=== PATIENT | male | born 1935 | race Caucasian/White ===

== ENCOUNTER → 2019-03-17 | Day surgery (SDC) | payer MEDICARE ==
[2019-03-11 16:58] LABS: BASOPHILS % 0.6 % (0.0-1.0); EOSINOPHILS # (AUTO) 0.1 (0.0-0.4); EOSINOPHILS % 1.8 % (0.0-6.0); HEMATOCRIT 44.8 % (38.2-49.6); HEMOGLOBIN 14.2 g/dL (14.0-18.0); LYMPHOCYTES # (AUTO) 2.4 (1.0-3.2); LYMPHOCYTES % 33.6 % (18.0-39.1); MEAN CORPUSCULAR HGB CONC 31.7 g/dL (31-35); MEAN CORPUSCULAR VOLUME 94.5 fL (81-99); MONOCYTES # (AUTO) 0.7 (0.2-0.8); MONOCYTES % 9.7 % (4.4-11.3); NEUTROPHILS # (AUTO) 3.9 (2.1-6.9); NEUTROPHILS % 53.7 % (38.7-80.0); PLATELET COUNT 189 x10e3/uL (140-360); RED BLOOD COUNT 4.74 x10e6/uL (4.3-5.7); RED CELL DISTRIBUTION WIDTH 14.2 % (11.7-14.4)
[2019-03-11 17:17] LABS: ANION GAP 11.3 mmol/L (8-16); CALCIUM 9.8 mg/dL (8.4-10.2); CREATININE, SERUM 1.19 mg/dL (0.72-1.25); POTASSIUM 4.3 mmol/L (3.5-5.1)
--- NOTE | 2019-03-11 17:22 | Diagnostic Imaging Report ---
Frontal and lateral views of the chest. HISTORY: PREOP, pilonidal cyst COMPARISON: None available. DISCUSSION: Lungs: Mild bibasilar atelectasis versus scarring. Superimposed right lung base peripheral contusion is possible in the setting of recent trauma. Pleura: No pleural effusion or evidence of a pneumothorax. Heart and mediastinum: The cardiomediastinal silhouette appears unremarkable. Bones and soft tissues: Diffusely decreased mineralization of the osseous structures limits bone detail. Age uncertain unhealed fracture deformities of the right sixth, seventh, eighth, and ninth ribs. The fractures are most likely subacute. Mild accentuation of the thoracic kyphosis. Mild multilevel degenerative disc changes. IMPRESSION: Unhealed right rib fracture deformities with adjacent atelectasis, pulmonary contusion, and/or scarring. Correlate with specific history and for focal acute point tenderness. Signed by: Dr. Shyam Richardson D.O., M.M.M. on 03/11/2019 5:19 PM
[~2019-03-17] MED LIST: ATENOLOL50 MG PO; BUPIVACAINE 0.5%/EPI 30 ML SDV INJ ONE; CEFAZOLIN SOD 2 GM/D5W 50ML 50 ML IV ONE; DESFLURANE 240 ML BTL INH ONE; DEXAMETHASONE SOD PHOS INJ 4 MG/ML VIAL ONE; EPHEDRINE SULFATE INJ 50 MG/10 ML SYR ONE; FENTANYL CITRATE/PF 100MCG/2 ML INJ ONE; GABAPENTIN300 MG PO; GLYCOPYRROLATE INJ 1MG/ 5 ML SYR ONE; HYDROGEN PEROXIDE 120 ML BTL ONE; LIDOCAINE HCL 2% LOCAL INJ 5 ML SDV VIAL INJ ONE; MECLIZINE HCL12.5 MG PO; METHYLENE BLUE 1% INJ 10 ML VIAL INJ ONE; MIDAZOLAM HCL 2 MG/2 ML VIAL ONE; NEOSTIGMINE 5 MG/5ML SYR ONE; ONDANSETRON HCL INJ 2MG/ML 2ML 2 MG/ML VIAL ONE; ONDANSETRON ODT8 MG PO; PRAMIPEXOLE D0.25 MG PO; PROPOFOL IV EMULSION 10 MG/ML 20 ML VIAL ONE; ROCURONIUM BROMIDE 10 MG/ML 5ML VIAL ONE; SUCRALFATE1 G/10 ML PO; TRIAMTERENE/HCTZ PO
--- OUTSIDE RECORDS SUMMARY | 2019-03-17 07:17 | XMS REPORT ---
Author Author Gregory Ingram Organization [employer] Address Unknown Phone Unavailable Care Team Providers Care Bottling Room Worker Name Role Phone Gregory Ingram CP Unavailable Allergies No Known Allergies Problems Problem Type Condition Code Onset Dates Condition Status Problem Knee pain, right M25.561 Active Problem 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 Active Problem Nausea R11.0 Active Problem Abdominal pain R10.9 Active Problem Shoulder pain, right M25.511 Active Problem Vitamin D deficiency E55.9 Active Problem Long-term use of high-risk medication Z79.899 Active Problem Neck mass R22.1 Active Problem Dizziness R42 Active Medications No Known Medications Results No Known Results Summary Purpose eClinicalWorks Submission
--- OUTSIDE RECORDS SUMMARY | 2019-03-17 07:17 | XMS REPORT ---
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 Assessment Venous insufficiency I87.2 Active Problem Essential hypertension I10 Active Problem Obesity (BMI 30.0-34.9) E66.9 Active Problem Osteoarthritis, unspecified osteoarthritis type, unspecified site M19.90 Active Problem Family history of abdominal aortic aneurysm (AAA) Z82.49 Active Problem Former smoker Z87.891 Active Problem Dyspnea, unspecified type R06.00 Active Problem Preoperative cardiovascular examination Z01.810 Active Medications Medication Code System Code Instructions Start Date End Date Status Dosage Atenolol [facility] [address]-29 50 MG Orally Once a day Active 1 tablet Gabapentin [facility] [address]-44 600 MG Orally Three times a day Active 1 tablet Pramipexole Dihydrochloride [facility] [address]-21 0.25 MG Orally Once a day Active 1 tablet before bedtime Triamterene-HCTZ [facility] [address]-18 75-50 MG Orally Once a day Active 1 tablet in the morning Omeprazole [facility] [address]-11 40 MG Orally Once a day Active 1 capsule Azelastine HCl [facility] [address]-74 0.1 % Nasally Twice a day Active 1 puff in each nostril Asmanex 14 Metered Doses [facility] [address]-65 220 MCG/INH Inhalation Once a day Active 1 puff in the evening Hydrocodone-Acetaminophen [facility] [address]-58 5-325 MG Orally every 6 hrs Active 1 tablet as needed Stiolto Respimat [facility] [address]-35 2.5-2.5 MCG/ACT Inhalation Once a day Active 2 puffs Results No Known Results Summary Purpose eClinicalWorks Submission
--- OUTSIDE RECORDS SUMMARY | 2019-03-17 07:17 | XMS REPORT ---
Author Gregory Lundberg [facility] eClinicalWorks Address Unknown Phone Unavailable Care Team Providers Care Payment Specialist Name Role Phone Gregory Ingram CP Unavailable Allergies No Known Allergies Problems Problem Type Condition Code Onset Dates Condition Status Problem Knee pain, right M25.561 Active Problem 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 Active Problem Long-term use of high-risk medication Z79.899 Active Medications No Known Medications Results No Known Results Summary Purpose eClinicalWorks Submission
--- OUTSIDE RECORDS SUMMARY | 2019-03-17 07:17 | XMS REPORT ---
Author Author Philippe Gibson [facility] eClinical[employer] Address Unknown Phone Unavailable Care Team Providers Care Special Procedures Tech Name Role Phone Philippe Gibson CP Unavailable Allergies, Adverse Reactions, Alerts Substance Reaction Event Type N.K.D.A. 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 Problem Essential hypertension I10 Active Problem Obesity (BMI 30.0-34.9) E66.9 Active Problem Osteoarthritis, unspecified osteoarthritis type, unspecified site M19.90 Active Problem Family history of abdominal aortic aneurysm (AAA) Z82.49 Active Problem Former smoker Z87.891 Active Problem Dyspnea, unspecified type R06.00 Active Problem Preoperative cardiovascular examination Z01.810 Active Assessment Former smoker Z87.891 Active Assessment Osteoarthritis, unspecified osteoarthritis type, unspecified site M19.90 Active Assessment Essential hypertension I10 Active Assessment Family history of abdominal aortic aneurysm (AAA) Z82.49 Active Assessment Dyspnea, unspecified type R06.00 Active Assessment Obesity (BMI 30.0-34.9) E66.9 Active Assessment Bilateral lower extremity edema R60.0 Active Medications Medication Code System Code Instructions Start Date End Date Status Dosage Gabapentin [facility] [address]-12 600 MG Orally Three times a day Active 1 tablet Azelastine HCl [facility] [address]-22 0.1 % Nasally Twice a day Active 1 puff in each nostril Omeprazole [facility] [address]-09 40 MG Orally Once a day Active 1 capsule Hydrocodone-Acetaminophen [facility] [address]-93 5-325 MG Orally every 6 hrs Active 1 tablet as needed Pramipexole Dihydrochloride [facility] [address]-94 0.25 MG Orally Once a day Active 1 tablet before bedtime Stiolto Respimat [facility] [address]-88 2.5-2.5 MCG/ACT Inhalation Once a day Active 2 puffs Asmanex 14 Metered Doses [facility] [address]-78 220 MCG/INH Inhalation Once a day Active 1 puff in the evening Triamterene-HCTZ [facility] [address]-16 75-50 MG Orally Once a day Active 1 tablet in the morning Atenolol [facility] [address]-28 50 MG Orally Once a day Active 1 tablet Vital Signs Date/Time: January 16, 2017 BMI 31.73 Index Weight 234 lbs Height 72 in Temperature 98.0 F Cardiac Monitoring Heart Rate 85 /min Blood Pressure Diastolic 80 mm Hg Blood Pressure Systolic 128 mm Hg Results No Known Results Summary Purpose eClinicalWorks Submission
--- OUTSIDE RECORDS SUMMARY | 2019-03-17 07:17 | XMS REPORT ---
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
--- OUTSIDE RECORDS SUMMARY | 2019-03-17 07:17 | XMS REPORT ---
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 Active Problem Long-term use of high-risk medication Z79.899 Active Assessment Knee pain, right M25.561 Active Assessment 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 Active Assessment Long-term use of high-risk medication Z79.899 Active Medications Medication Code System Code Instructions Start Date End Date Status Dosage Simponi Aria [facility] 83610587303 50 MG/4ML Intravenous Sep 02, 2017 Active as directed Gabapentin ND 48340370747 300 MG Orally three times a day Active 1 tablet PredniSONE NDC 0 5 MG Orally Once a day Aug 20, 2017 Active 1-2 tabs PRN Tylenol/Codeine #3 ND 12082115846 300-30 MG Orally qd prn December 28, 2016 Active 1 tablet as needed Nexium ND 60466519750 40 MG prn Active TAKE ONE CAPSULE BY MOUTH EVERY DAY Atenolol ND 06463057877 50MG Orally Once a day Active 1 tablet Vital Signs Date/Time: Oct 21, 2017 BMI 31.96 Index Weight 235.7 lbs Height 72 in Temperature 99.0 F Cardiac Monitoring Heart Rate 74 /min Blood Pressure Diastolic 58 mm Hg Blood Pressure Systolic 110 mm Hg Results No Known Results Summary Purpose eClinicalWorks Submission
--- OUTSIDE RECORDS SUMMARY | 2019-03-17 07:17 | XMS REPORT | Continuity of Care Document ---
Author Author [facility] Address Unknown Phone Unavailable Problems Problem Status Onset Date Classification Date Reported Comments Source Varicose veins of bilateral lower extremities with other complications Active Problem 01/25/2018 Mohamed O Beouamanda Bilateral lower extremity edema Active Problem 01/25/2018 Mohamed O Paige Venous insufficiency Active Diagnosis 03/07/2017 Mohamed O Beouamanda Essential hypertension Active Problem 01/25/2018 Mohamed O Paige Obesity Active Problem 01/25/2018 Mohamed O Beouamanda Osteoarthritis, unspecified osteoarthritis type, unspecified site Active Problem 01/25/2018 Mohamed O Paige Family history of abdominal aortic aneurysm Active Problem 01/25/2018 Mohamed O Paige Former smoker Active Problem 01/25/2018 Mohamed O Paige Dyspnea, unspecified type Active Problem 01/25/2018 Mohamed O Paige Preoperative cardiovascular examination Active Problem 01/25/2018 Mohamed Radha Gibson Knee pain, right Active Problem 03/06/2019 Keegan Ingram Ankylosing spondylitis of multiple sites in spine Active Problem 03/06/2019 Keegan Ingram Long-term use of high-risk medication Active Problem 03/06/2019 Keegan Ingram Vitamin D deficiency Active Problem 03/06/2019 Keegan Ingram Status post ablation of incompetent vein using laser Active Problem 01/25/2018 Mohdixon Gibson Nausea Active Problem 03/06/2019 Keegan Ingram Abdominal pain Active Problem 03/06/2019 Keegan Ingram Shoulder pain, right Active Problem 03/06/2019 Keegan Ingram Neck mass Active Problem 03/06/2019 Keegan Ingram Dizziness Active Problem 03/06/2019 Keegan Ingram Fatigue Active Diagnosis 12/19/2017 Keegan Ingram Medications Medication Details Route Status Patient Instructions Ordering Provider Order Date Source Medrol Dose Davis as directed Orally Active 4mg Orally once a day Clau 12/01/2018 Keegan Ingram Chlordiazepoxide HCl 1 capsule Orally Active 10 MG Orally Twice a day Clau 09/09/2018 Keegan Ingram Chlordiazepoxide HCl 1 capsule Orally Active 25 MG Orally tid for nausea Clau 08/12/2018 Keegan Ingram Zofran 1 tablet Orally Active 8 MG Orally Twice a day [facility] 08/05/2018 Keegan Ingram PredniSONE 1-2 tabs prn for arthritis flare up Orally Active 5 MG Orally Once a day [facility] 08/05/2018 Keegan Ingram Tylenol/Codeine #3 1 tablet as needed Orally Active 300-30 MG Orally qid [facility] 06/10/2018 Keegan Ingram Meclizine HCl 1 tablet as needed Orally Active 25 MG Orally Once a day [facility] 06/10/2018 Keegan Ingram Vitamin D (Ergocalciferol) 1 capsule Orally Active 48064 UNIT Orally once a week [place] 12/17/2017 Keegan Ingram Simponi Aria as directed Intravenous Active 50 MG/4ML Intravenous [facility] 09/02/2017 Keegan Ingram PredniSONE 1-2 tabs PRN Orally Active 5 MG Orally Once a day [place] 08/20/2017 Keegan Ingram PredniSONE 1-2 tabs PRN Orally Active 5 MG Orally Once a day [facility] 08/20/2017 Keegan Ingram Tylenol/Codeine #3 1 tablet as needed Orally Active 300-30 MG Orally qd prn [facility] 12/28/2016 Keegan Ingram Atenolol 1 tablet Orally Active 50 MG Orally Once a day Paige Gibson Gabapentin 1 tablet Orally Active 600 MG Orally Three times a day Paige Gibson Pramipexole Dihydrochloride 1 tablet before bedtime Orally Active 0.25 MG Orally Once a day Paige Gibson Triamterene-HCTZ 1 tablet in the morning Orally Active 75-50 MG Orally Once a day Paige Gibson Omeprazole 1 capsule Orally Active 40 MG Orally Once a day Paige Gibson Azelastine HCl 1 puff in each nostril Nasally Active 0.1 % Nasally Twice a day Paige Gibson Asmanex 14 Metered Doses 1 puff in the evening Inhalation Active 220 MCG/INH Inhalation Once a day Paige Gibson Hydrocodone-Acetaminophen 1 tablet as needed Orally Active 5- 325 MG Orally every 6 hrs Paige Gibson Stiolto Respimat 2 puffs Inhalation Active 2.5-2.5 MCG/ACT Inhalation Once a day Beamanda Gibson Atenolol 1 tablet Orally Active 50 MG Orally Once a day Beamanda Gibson Azelastine HCl 1 puff in each nostril Nasally Active 0.1 % Nasally Twice a day Beamanda Gibson Hydrocodone-Acetaminophen 1 tablet as needed Orally Active 5- 325 MG Orally every 6 hrs Beamanda Gibson Omeprazole 1 capsule Orally Active 40 MG Orally Once a day Beamanda Gibson Triamterene-HCTZ 1 tablet in the morning Orally Active 75-50 MG Orally Once a day Beamanda Gibson Gabapentin 1 tablet Orally Active 600 MG Orally Three times a day Beamanda Gibson Asmanex 14 Metered Doses 1 puff in the evening Inhalation Active 220 MCG/INH Inhalation Once a day Beamanda Gibson Pramipexole Dihydrochloride 1 tablet before bedtime Orally Active 0.25 MG Orally Once a day Paige Gibson Stiolto Respimat 2 puffs Inhalation Active 2.5-2.5 MCG/ACT Inhalation Once a day Paige Gibson Gabapentin 1 tablet Orally Active 300 MG Orally three times a day Clau Keegan Ingram Nexium TAKE ONE CAPSULE BY MOUTH EVERY DAY NA Active 40 MG prn Clau Keegan Ingram Atenolol 1 tablet Orally Active 50MG Orally Once a day Clau Keegan Ingram Gabapentin 1 tablet Orally Active 300 MG Orally Once a day Clau Keegan Ingram Allergies, Adverse Reactions, Alerts Substance Category Reaction Severity Reaction type Status Date Reported Comments Source N.K.D.A. Adverse Reaction Info Not Available Adverse Reaction Active 02/28/2017 Philippe Gibson Remicade Adverse Reaction Info Not Available Adverse Reaction Active 01/05/2019 Keegan Ingram Latex Adverse Reaction Info Not Available Adverse Reaction Active 01/05/2019 Keegan Ingram Celebrex Adverse Reaction GI upset Adverse Reaction Active 01/05/2019 Keegan Ingram Arthrotec Adverse Reaction Info Not Available Adverse Reaction Active 01/05/2019 Keegan Ingram Mirapex Adverse Reaction nausea/emesis Adverse Reaction Active 01/05/2019 Keegan Ingram Immunizations Immunization Date Given Site Status Last Updated Comments Source Results Order Name Results Value Reference Range Date Interpretation Comments Source Vital Signs Vital Sign Value Date Comments Source Weight 220.0 01/05/2019 Keegan Ingram Height 70 01/05/2019 Keegan Ingram Temperature Oral (F) 96.8 F 01/05/2019 Keegan Ingram Heart Rate 68 01/05/2019 Keegan Ingram Diastolic (mm Hg) 80 01/05/2019 Keegan Ingram Systolic (mm Hg) 140 01/05/2019 Keegan Ingram Weight 225.4 11/07/2018 Keegan Ingram Height 69 11/07/2018 Keegan Ingram Temperature Oral (F) 96.6 F 11/07/2018 Keegan Ingram Heart Rate 64 11/07/2018 Keegan Ingram Diastolic (mm Hg) 72 11/07/2018 Keegan Ingram Systolic (mm Hg) 148 11/07/2018 Keegan Ingram Weight 221.6 11/04/2018 Keegan Ingram Height 69 11/04/2018 Keegan Ingram Temperature Oral (F) 98.0 F 11/04/2018 Keegan Ingram Heart Rate 76 11/04/2018 Keegan Ingram Diastolic (mm Hg) 66 11/04/2018 Keegan Ingram Systolic (mm Hg) 104 11/04/2018 Keegan Ingram Weight 226 09/09/2018 Keegan Ingram Height 69 09/09/2018 Keegan Ingram Temperature Oral (F) 98.8 F 09/09/2018 Keegan Ingram Heart Rate 74 09/09/2018 Keegan Ingram Diastolic (mm Hg) 70 09/09/2018 Keegan Ingram Systolic (mm Hg) 118 09/09/2018 Keegan Ingram Weight 221.1 08/12/2018 Keegan Ingram Height 72 08/12/2018 Keegan Ingram Temperature Oral (F) 97.2 F 08/12/2018 Keegan Ingram Heart Rate 76 08/12/2018 Keegan Ingram Diastolic (mm Hg) 80 08/12/2018 Keegan Ingram Systolic (mm Hg) 112 08/12/2018 Keegan Ingram Weight 222.2 08/05/2018 Keegan Ingram Height 72 08/05/2018 Keegan Ingram Temperature Oral (F) 98.5 F 08/05/2018 Keegan Ingram Heart Rate 76 08/05/2018 Keegan Ingram Diastolic (mm Hg) 78 08/05/2018 Keegan Ingram Systolic (mm Hg) 122 08/05/2018 Keegan Ingram Weight 227.9 06/10/2018 Keegan Ingram Height 72 06/10/2018 Keegan Ingram Temperature Oral (F) 97.0 F 06/10/2018 Keegan Ingram Heart Rate 74 06/10/2018 Keegan Ingram Diastolic (mm Hg) 70 06/10/2018 Keegan Ingram Systolic (mm Hg) 128 06/10/2018 Keegan Ingram Weight 231.6 02/13/2018 Keegan Ingram Height 72 02/13/2018 Keegan Ingram Temperature Oral (F) 97.3 F 02/13/2018 Keegan Ingram Heart Rate 76 02/13/2018 Keegan Ingram Diastolic (mm Hg) 60 02/13/2018 Keegan Ingram Systolic (mm Hg) 102 02/13/2018 Keegan Ingram Weight 235.8 12/16/2017 Keegan Ingram Height 72 12/16/2017 Keegan Ingram Temperature Oral (F) 98.2 F 12/16/2017 Keegan Ingram Heart Rate 76 12/16/2017 Keegan Ingram Diastolic (mm Hg) 70 12/16/2017 Keegan Ingram Systolic (mm Hg) 122 12/16/2017 Keegan Ingram Weight 235.7 10/21/2017 Keegan Ingram Height 72 10/21/2017 Keegan Ingram Temperature Oral (F) 99.0 F 10/21/2017 Keegan Ingram Heart Rate 74 10/21/2017 Keegan Ingram Diastolic (mm Hg) 58 10/21/2017 Keegan Ingram Systolic (mm Hg) 110 10/21/2017 Keegan Ingram Weight 235 02/28/2017 Mohamed O Jeroudi Height 72 02/28/2017 Mohamed O Jeroudi Temperature Oral (F) 97.3 F 02/28/2017 Mohamed O Jeroudi Heart Rate 80 02/28/2017 Mohamed O Jeroudi Diastolic (mm Hg) 70 02/28/2017 Mohamed O Jeroudi Systolic (mm Hg) 130 02/28/2017 Mohamed O Jeroudi Weight 235 01/31/2017 Mohamed O Jeroudi Height 72 01/31/2017 Philippe Gibson Temperature Oral (F) 97.6 F 01/31/2017 Philippe Gibson Heart Rate 80 01/31/2017 Philippe Gibson Diastolic (mm Hg) 76 01/31/2017 Philippe Gibson Systolic (mm Hg) 132 01/31/2017 Philippe Gibson Weight 234 01/16/2017 Philippe Gibson Height 72 01/16/2017 Philippe Gibson Temperature Oral (F) 98.0 F 01/16/2017 Philippe Gibson Heart Rate 85 01/16/2017 Philippe Gibson Diastolic (mm Hg) 80 01/16/2017 Philippe Gibson Systolic (mm Hg) 128 01/16/2017 Philippe Gibson Encounters Location Location Details Encounter Type Encounter Number Reason For Visit Attending Provider ADM Date DC Date Status Source Procedures Procedure Code Date Perfomer Comments Source
--- OUTSIDE RECORDS SUMMARY | 2019-03-17 07:18 | XMS REPORT ---
Author Author Mindi Gibson [facility] eClinicalWorks Address Unknown Phone Unavailable Care Team Providers Care Athletic Director Name Role Phone Mindi Gibson Unavailable Allergies, Adverse Reactions, Alerts Substance Reaction Event Type N.K.D.A. 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 Problem Obesity (BMI 30.0-34.9) E66.9 Active Problem Bilateral lower extremity edema R60.0 Active Assessment Former smoker Z87.891 Active Assessment Family history of abdominal aortic aneurysm (AAA) Z82.49 Active Assessment Essential hypertension I10 Active Assessment Dyspnea, unspecified type R06.00 Active Assessment Obesity (BMI 30.0-34.9) E66.9 Active Assessment Bilateral lower extremity edema R60.0 Active Assessment Osteoarthritis, unspecified osteoarthritis type, unspecified site M19.90 Active Assessment 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 Medications Medication Code System Code Instructions Start Date End Date Status Dosage Atenolol ND 38498425433 50 MG Orally Once a day Active 1 tablet Azelastine HCl ND 13862414572 0.1 % Nasally Twice a day Active 1 puff in each nostril Hydrocodone-Acetaminophen ND 26074218086 5-325 MG Orally every 6 hrs Active 1 tablet as needed Omeprazole ND 68314431721 40 MG Orally Once a day Active 1 capsule Triamterene-HCTZ ND 54149145581 75-50 MG Orally Once a day Active 1 tablet in the morning Gabapentin [facility] 36988357734 600 MG Orally Three times a day Active 1 tablet Asmanex 14 Metered Doses [facility] 05644556539 220 MCG/INH Inhalation Once a day Active 1 puff in the evening Pramipexole Dihydrochloride [facility] 51864813025 0.25 MG Orally Once a day Active 1 tablet before bedtime Stiolto Respimat [facility] 08354274008 2.5-2.5 MCG/ACT Inhalation Once a day Active 2 puffs Vital Signs Date/Time: January 31, 2017 BMI 31.87 Index Weight 235 lbs Height 72 in Temperature 97.6 F Cardiac Monitoring Heart Rate 80 /min Blood Pressure Diastolic 76 mm Hg Blood Pressure Systolic 132 mm Hg Results No Known Results Summary Purpose eClinicalWorks Submission
--- OUTSIDE RECORDS SUMMARY | 2019-03-17 07:18 | XMS REPORT ---
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
--- OUTSIDE RECORDS SUMMARY | 2019-03-17 07:18 | XMS REPORT ---
Author Author Gregory Ingram Organization eClinicalWorks Address Unknown Phone Unavailable Care Team Providers Care Packaging Machine Operator Name Role Phone Gregory Ingram CP Unavailable Allergies, Adverse Reactions, Alerts Substance Reaction Event Type Remicade Info Not Available Drug Allergy Latex Info Not Available Non Drug Allergy Celebrex GI upset Non Drug Allergy Arthrotec Info Not Available Non Drug Allergy Mirapex nausea/emesis Non Drug Allergy Problems Problem Type Condition Code Onset Dates Condition Status Problem Long-term use of high-risk medication Z79.899 Active Problem Knee pain, right M25.561 Active Problem Vitamin D deficiency E55.9 Active Assessment Long-term use of high-risk medication Z79.899 Active Problem 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 Active Assessment 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 Active Medications Medication Code System Code Instructions Start Date End Date Status Dosage Simponi Aria [facility] 43902100309 50 MG/4ML Intravenous Sep 02, 2017 Active as directed Atenolol ND 79649115397 50MG Orally Once a day Active 1 tablet Tylenol/Codeine #3 [facility] 72309285275 300-30 MG Orally qd prn December 28, 2016 Active 1 tablet as needed Vitamin D (Ergocalciferol) [facility] 12938582144 79096 UNIT Orally once a week December 17, 2017 Active 1 capsule Gabapentin ND 40353178882 300 MG Orally three times a day Active 1 tablet Nexium ND 50111502762 40 MG prn Active TAKE ONE CAPSULE BY MOUTH EVERY DAY PredniSONE NDC 0 5 MG Orally Once a day Aug 20, 2017 Active 1-2 tabs PRN Vital Signs Date/Time: February 13, 2018 BMI 31.41 Index Weight 231.6 lbs Height 72 in Temperature 97.3 F Cardiac Monitoring Heart Rate 76 /min Blood Pressure Diastolic 60 mm Hg Blood Pressure Systolic 102 mm Hg Results No Known Results Summary Purpose eClinicalWorks Submission
--- OUTSIDE RECORDS SUMMARY | 2019-03-17 07:18 | XMS REPORT ---
Author Author Evaristo Olguin [facility] eClinicalWorks Address Unknown Phone Unavailable Care Team Providers Care Sales And Service Change Leader Name Role Phone Evaristo Olguin CP Unavailable Allergies No Known Allergies Problems Problem Type Condition Code Onset Dates Condition Status Problem Vitamin D deficiency E55.9 Active Problem Long-term use of high-risk medication Z79.899 Active Problem Dizziness R42 Active Problem Knee pain, right M25.561 Active Problem 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 Active Medications Medication Code System Code Instructions Start Date End Date Status Dosage Tylenol/Codeine #3 [facility] 77747889581 300-30 MG Orally qid Jun 10, 2018 Active 1 tablet as needed Results No Known Results Summary Purpose eClinicalWorks Submission
--- OUTSIDE RECORDS SUMMARY | 2019-03-17 07:18 | XMS REPORT ---
Author Author Evaristo Olguin [facility] eClinicalWorks Address Unknown Phone Unavailable Care Team Providers Care Controls Designer Name Role Phone Evaristo Olguin Unavailable Allergies, Adverse Reactions, Alerts Substance Reaction Event Type Remicade Info Not Available Drug Allergy Mirapex nausea/emesis Non Drug Allergy Latex Info Not Available Non Drug Allergy Celebrex GI upset Non Drug Allergy Arthrotec Info Not Available Non Drug Allergy Problems Problem Type Condition Code Onset Dates Condition Status Problem Knee pain, right M25.561 Active Problem 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 Active Assessment Shoulder pain, right M25.511 Active Assessment 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 Active Problem Nausea R11.0 Active Problem Abdominal pain R10.9 Active Problem Shoulder pain, right M25.511 Active Problem Vitamin D deficiency E55.9 Active Problem Long-term use of high-risk medication Z79.899 Active Problem Neck mass R22.1 Active Problem Dizziness R42 Active Medications Medication Code System Code Instructions Start Date End Date Status Dosage Atenolol [facility] 40856166855 50MG Orally Once a day Active 1 tablet Meclizine HCl [facility] 71373558669 25 MG Orally Once a day Jun 10, 2018 Active 1 tablet as needed Gabapentin [facility] [address]-71 300 MG Orally Once a day Active 1 tablet Simponi Aria [facility] 63052976079 50 MG/4ML Intravenous Sep 02, 2017 Active as directed Chlordiazepoxide HCl ND 88622254553 10 MG Orally Twice a day Sep 09, 2018 Active 1 capsule Tylenol/Codeine #3 [facility] 56254623628 300-30 MG Orally qid Jun 10, 2018 Active 1 tablet as needed Zofran ND 68108683794 8 MG Orally Twice a day Aug 05, 2018 Active 1 tablet Nexium [facility] 58066134544 40 MG prn Active TAKE ONE CAPSULE BY MOUTH EVERY DAY PredniSONE ND 91129012370 5 MG Orally Once a day Aug 05, 2018 Active 1- 2 tabs prn for arthritis flare up Vital Signs Date/Time: Nov 07, 2018 BMI 33.28 Index Weight 225.4 lbs Height 69 in Temperature 96.6 F Cardiac Monitoring Heart Rate 64 /min Blood Pressure Diastolic 72 mm Hg Blood Pressure Systolic 148 mm Hg Results No Known Results Summary Purpose eClinicalWorks Submission
--- OUTSIDE RECORDS SUMMARY | 2019-03-17 07:18 | XMS REPORT ---
Author Author Evaristo Olguin Organization e[employer] Address Unknown Phone Unavailable Care Team Providers Care Wireless Sales Expert Name Role Phone Evaristo Olguin CP Unavailable [...] medication Z79.899 Active Problem Dizziness R42 Active Assessment 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 Active Assessment Dizziness R42 Active Problem Knee pain, right M25.561 Active Problem 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 Active Medications Medication Code System Code Instructions Start Date End Date Status Dosage PredniSONE [facility] 84406022102 5 MG Orally Once a day Aug 20, 2017 Active 1- 2 tabs PRN Simponi Aria ND 72039562595 50 MG/4ML Intravenous Sep 02, 2017 Active as directed Gabapentin ND 98105318084 300 MG Orally three times a day Active 1 tablet Atenolol ND 42768456617 50MG Orally Once a day Active 1 tablet Nexium ND 61340558213 40 MG prn Active TAKE ONE CAPSULE BY MOUTH EVERY DAY Tylenol/Codeine #3 ND 92475787167 300-30 MG Orally qd prn December 28, 2016 Active 1 tablet as needed Meclizine HCl ND 09908010643 25 MG Orally Once a day Jun 10, 2018 Active 1 tablet as needed Vital Signs Date/Time: Jun 10, 2018 BMI 30.91 Index Weight 227.9 lbs Height 72 in Temperature 97.0 F Cardiac Monitoring Heart Rate 74 /min Blood Pressure Diastolic 70 mm Hg Blood Pressure Systolic 128 mm Hg Results No Known Results Summary Purpose eClinicalWorks Submission
--- OUTSIDE RECORDS SUMMARY | 2019-03-17 07:18 | XMS REPORT ---
Author Author Evaristo Olguin [facility] eClinicalWorks Address Unknown Phone Unavailable Care Team Providers Care Returned Case Inspector Name Role Phone Evaristo Olguin Unavailable Allergies, Adverse Reactions, Alerts Substance Reaction Event Type Remicade Info Not Available Drug Allergy Latex Info Not Available Non Drug Allergy Celebrex GI upset Non Drug Allergy Arthrotec Info Not Available Non Drug Allergy Problems Problem Type Condition Code Onset Dates Condition Status Assessment Fatigue R53.83 Active Problem Long-term use of high-risk medication Z79.899 Active Problem Knee pain, right M25.561 Active Problem Vitamin D deficiency E55.9 Active Assessment Long-term use of high-risk medication Z79.899 Active Assessment Vitamin D deficiency E55.9 Active Problem 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 Active Assessment 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 Active Medications Medication Code System Code Instructions Start Date End Date Status Dosage Atenolol [facility] 75014003542 50MG Orally Once a day Active 1 tablet Gabapentin ND 13404265799 300 MG Orally three times a day Active 1 tablet PredniSONE NDC 0 5 MG Orally Once a day Aug 20, 2017 Active 1-2 tabs PRN Tylenol/Codeine #[address] [facility] 72009253922 300-30 MG Orally qd prn December 28, 2016 Active 1 tablet as needed Nexium ND 44310378961 40 MG prn Active TAKE ONE CAPSULE BY MOUTH EVERY DAY Simponi Aria [facility] 00838574319 50 MG/4ML Intravenous Sep 02, 2017 Active as directed Vital Signs Date/Time: December 16, 2017 BMI 31.98 Index Weight 235.8 lbs Height 72 in Temperature 98.2 F Cardiac Monitoring Heart Rate 76 /min Blood Pressure Diastolic 70 mm Hg Blood Pressure Systolic 122 mm Hg Results Name Result Date Reference Range Unit Abnormality Flag Vitamin B12 and Folate ----Vitamin B12 265 [id number] 232-1245 pg/mL Vitamin D, 25-Hydroxy [facility] ----Vitamin D, 25-Hydroxy 22.1 51011774 30.0-100.0 ng/mL L COMPREHENSIVE METABOLIC PANEL W/EGFR ----Bilirubin, Total 0.4 49776230 0.0-1.2 mg/dL ----A/G Ratio 1.5 [id number] 1.2-2.2 ----AST (SGOT) 16 [id number] 0-40 IU/L ----Alkaline Phosphatase, S 57 20171216 39-117 IU/L ----Carbon Dioxide, Total 24 20171216 18-29 mmol/L ----Chloride, Serum 104 47299114 96-106 mmol/L ----ALT (SGPT) 10 20171216 0-44 IU/L ----Potassium, Serum 4.1 20171216 3.5-5.2 mmol/L ----Sodium, Serum 144 20171216 134-144 mmol/L ----BUN/Creatinine Ratio 17 20171216 10-24 ----Protein, Total, Serum 6.4 [id number] 6.0-8.5 g/dL ----Calcium, Serum 9.5 78444572 8.6-10.2 mg/dL ----Globulin, Total 2.6 36046618 1.5-4.5 g/dL ----Albumin, Serum 3.8 [id number] 3.5-4.7 g/dL ----Glucose, Serum 125 35152824 65-99 mg/dL H ----BUN 15 20171216 8-27 mg/dL ----Creatinine, Serum 0.89 [id number] 0.76-1.27 mg/dL ----eGFR If NonAfricn Am 79 20171216 >59 mL/min/1.73 CBC (INCLUDES DIFF/PLT) ----MCHC 34.0 [id number] 31.5-35.7 g/dL ----MCH 30.7 [id number] 26.6-33.0 pg ----Platelets 185 [id number] 150-379 x10E3/uL ----RDW 14.9 72603850 12.3-15.4 % ----Immature Granulocytes 0 [id number] Not Estab. % ----Immature Grans (Abs) 0.0 20171216 0.0-0.1 x10E3/uL ----Lymphs 30 86062771 Not Estab. % ----Monocytes 10 [id number] Not Estab. % ----Neutrophils 59 33572714 Not Estab. % ----Neutrophils (Absolute) 3.9 [id number] 1.4-7.0 x10E3/uL ----Hematocrit 44.4 36932364 37.5-51.0 % ----Lymphs (Absolute) 2.0 [id number] 0.7-3.1 x10E3/uL ----MCV 90 20171216 79-97 fL ----RBC 4.92 [id number] 4.14-5.80 x10E6/uL ----Eos 1 [id number] Not Estab. % ----Basos 0 20171216 Not Estab. % ----Hemoglobin 15.1 20171216 13.0-17.7 g/dL ----Baso (Absolute) 0.0 [id number] 0.0-0.2 x10E3/uL ----WBC 6.8 [id number] 3.4-10.8 x10E3/uL ----Monocytes(Absolute) 0.7 20171216 0.1-0.9 x10E3/uL ----Eos (Absolute) 0.1 [id number] 0.0-0.4 x10E3/uL SED RATE BY MODIFIED WESTERGREN ----Sedimentation Rate-Westergren 2 20171216 0-30 mm/hr C-REACTIVE PROTEIN ----C-Reactive Protein, Quant 1.4 [id number] 0.0-4.9 mg/L Summary Purpose eClinicalWorks Submission
--- OUTSIDE RECORDS SUMMARY | 2019-03-17 07:18 | XMS REPORT ---
Author Author Evaristo Olguin [facility] eClinicalWorks Address Unknown Phone Unavailable Care Team Providers Care Teacher Resource Name Role Phone Evaristo Olguin Unavailable Allergies, Adverse Reactions, Alerts Substance Reaction Event Type Remicade Info Not Available Drug Allergy Mirapex nausea/emesis Non Drug Allergy Latex Info Not Available Non Drug Allergy Celebrex GI upset Non Drug Allergy Arthrotec Info Not Available Non Drug Allergy Problems Problem Type Condition Code Onset Dates Condition Status Assessment 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 Active Problem 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 Active Problem Abdominal pain R10.9 Active Problem Neck mass R22.1 Active Problem Nausea R11.0 Active Problem Long-term use of high-risk medication Z79.899 Active Problem Knee pain, right M25.561 Active Problem Dizziness R42 Active Problem Vitamin D deficiency E55.9 Active Assessment Neck mass R22.1 Active Assessment Abdominal pain R10.9 Active Assessment Nausea R11.0 Active Assessment Long-term use of high-risk medication Z79.899 Active Medications Medication Code System Code Instructions Start Date End Date Status Dosage Zofran [facility] 75195386169 8 MG Orally Twice a day Aug 05, 2018 Active 1 tablet Atenolol [facility] 96162763803 50MG Orally Once a day Active 1 tablet Gabapentin [facility] [address]-50 300 MG Orally Once a day Active 1 tablet PredniSONE [facility] 95835537686 5 MG Orally Once a day Aug 20, 2017 Active 1- 2 tabs PRN Simponi Aria [facility] 58418176037 50 MG/4ML Intravenous Sep 02, 2017 Active as directed PredniSONE [facility] 62735585081 5 MG Orally Once a day Aug 05, 2018 December 03, 2018 Active 1-2 tabs prn for arthritis flare up Nexium [facility] 28289184645 40 MG prn Active TAKE ONE CAPSULE BY MOUTH EVERY DAY Meclizine HCl [facility] 22205113153 25 MG Orally Once a day Jun 10, 2018 Active 1 tablet as needed Tylenol/Codeine #3 [facility] 47403790975 300-30 MG Orally qid Jun 10, 2018 Active 1 tablet as needed Vital Signs Date/Time: Aug 05, 2018 BMI 30.13 Index Weight 222.2 lbs Height 72 in Temperature 98.5 F Cardiac Monitoring Heart Rate 76 /min Blood Pressure Diastolic 78 mm Hg Blood Pressure Systolic 122 mm Hg Results No Known Results Summary Purpose eClinicalWorks Submission
--- OUTSIDE RECORDS SUMMARY | 2019-03-17 07:18 | XMS REPORT ---
Author Author Philippe Gibson [facility] eClinicalWorks Address Unknown Phone Unavailable Care Team Providers Care Mailing Section Clerk Name Role Phone Philippe Gibson CP Unavailable [...] Instructions Start Date End Date Status Dosage Azelastine HCl ND 29604932728 0.1 % Nasally Twice a day Active 1 puff in each nostril Triamterene-HCTZ ND 66898021520 75-50 MG Orally Once a day Active 1 tablet in the morning Omeprazole ND 09992317474 40 MG Orally Once a day Active 1 capsule Gabapentin ND 68620572469 600 MG Orally Three times a day Active 1 tablet Pramipexole Dihydrochloride ND 91905715089 0.25 MG Orally Once a day Active 1 tablet before bedtime Atenolol [facility] 54230274279 50 MG Orally Once a day Active 1 tablet Hydrocodone-Acetaminophen [facility] 49014328488 5-325 MG Orally every 6 hrs Active 1 tablet as needed Stiolto Respimat [facility] 52980031412 2.5-2.5 MCG/ACT Inhalation Once a day Active 2 puffs Asmanex 14 Metered Doses [facility] 97494737380 220 MCG/INH Inhalation Once a day Active 1 puff in the evening Vital Signs Date/Time: February 28, 2017 BMI 31.87 Index Weight 235 lbs Height 72 in Temperature 97.3 F Cardiac Monitoring Heart Rate 80 /min Blood Pressure Diastolic 70 mm Hg Blood Pressure Systolic 130 mm Hg Results No Known Results Summary Purpose eClinicalWorks Submission
--- OUTSIDE RECORDS SUMMARY | 2019-03-17 07:18 | XMS REPORT ---
Author Author Evaristo Olguin [facility] eClinicalWorks Address Unknown Phone Unavailable Care Team Providers Care Director Of Graduate Admissions Name Role Phone Evaristo Olguin Unavailable Allergies, Adverse Reactions, Alerts Substance Reaction Event Type Remicade Info Not Available Drug Allergy Arthrotec Info Not Available Non Drug Allergy Mirapex nausea/emesis Non Drug Allergy Latex Info Not Available Non Drug Allergy Celebrex GI upset Non Drug Allergy Problems Problem Type Condition Code Onset Dates Condition Status Problem Knee pain, right M25.561 Active Problem 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 Active Assessment Shoulder pain, right M25.511 Active Assessment Long-term use of high-risk medication Z79.899 Active Assessment 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 Active Problem Nausea R11.0 Active Problem Abdominal pain R10.9 Active Problem Shoulder pain, right M25.511 Active Problem Vitamin D deficiency E55.9 Active Problem Long-term use of high-risk medication Z79.899 Active Problem Neck mass R22.1 Active Problem Dizziness R42 Active Medications Medication Code System Code Instructions Start Date End Date Status Dosage Tylenol/Codeine #3 [facility] 69924533938 300-30 MG Orally qid Jun 10, 2018 Active 1 tablet as needed Simponi Aria [facility] 63703726612 50 MG/4ML Intravenous Sep 02, 2017 Active as directed PredniSONE [facility] 58651024395 5 MG Orally Once a day Aug 05, 2018 Active 1- 2 tabs prn for arthritis flare up Meclizine HCl [facility] 76648897492 25 MG Orally Once a day Jun 10, 2018 Active 1 tablet as needed Gabapentin [facility] [address]-02 300 MG Orally Once a day Active 1 tablet Atenolol [facility] 72698262165 50MG Orally Once a day Active 1 tablet Chlordiazepoxide HCl [facility] 65613321184 10 MG Orally Twice a day Sep 09, 2018 Active 1 capsule Nexium [facility] 52298791683 40 MG prn Active TAKE ONE CAPSULE BY MOUTH EVERY DAY Yoselin [facility] 50442415623 8 MG Orally Twice a day Aug 05, 2018 Active 1 tablet Vital Signs Date/Time: Nov 04, 2018 BMI 33 Index Weight 221.6 lbs Height 69 in Temperature 98.0 F Cardiac Monitoring Heart Rate 76 /min Blood Pressure Diastolic 66 mm Hg Blood Pressure Systolic 104 mm Hg Results Name Result Date Reference Range Unit Abnormality Flag CBC W/AUTO DIFF ----MONOCYTES 11.4 [id number] 4.0-13.0 % ----LYMPHOCYTES 34.7 36670127 19.0-48.0 % ----HEMOGLOBIN 14.7 53951232 13.0-17.0 G/DL ----HEMATOCRIT 43.4 79434162 37.0-49.0 % ----MCV 87.5 04544651 80.0-100.0 fL ----MCH 29.6 23898972 27.0-34.0 PG ----MCHC 33.9 76371550 32.0-35.5 G/DL ----PLATELET COUNT 178 34935502 130-400 K/UL ----RDW 12.9 76619814 11.0-15.0 % ----WBC 5.2 48433428 4.0-11.0 K/UL ----NEUTROPHILS 50.8 66463932 40.0-74.0 % ----BASOPHILS 1.0 00980471 0.0-2.0 % ----RBC 4.96 49948624 4.10-5.70 M/UL ----EOSINOPHILS 2.1 26157550 0.0-7.0 % C-REACTIVE PROTEIN ----C-REACTIVE PROTEIN 0.1 78428605 <0.5 MG/DL COMPREHENSIVE METABOLIC PANEL ----CALC A/G RATIO 1.7 09890255 1.0-2.6 RATIO ----CALC GLOBULIN 2.4 62971465 1.9-3.7 G/DL ----ALKALINE PHOSPHATASE 59 20181104 40-125 U/L ----BILIRUBIN, TOTAL 0.3 20181104 <=1.2 MG/DL ----CHLORIDE 106 62714399 95-107 MEQ/L ----ALT 9 20181104 5-50 U/L ----POTASSIUM 4.5 20181104 3.5-5.4 MEQ/L ----AST 14 20181104 9-50 U/L ----SODIUM 145 20181104 133-146 MEQ/L ----CALC BUN/CREAT 12 20181104 6-28 RATIO ---- eGFR NON- AMER. 66 20181104 >60 ML/MIN/1.73 ----CALCIUM 9.0 20181104 8.5-10.5 MG/DL ----CARBON DIOXIDE 27 20181104 19-31 MEQ/L ----ALBUMIN 4.1 20181104 3.5-5.2 G/DL ----PROTEIN, TOTAL 6.5 20181104 6.1-8.3 G/DL ----GLUCOSE 114 20181104 70-99 MG/DL H ----BUN 12 20181104 8-23 MG/DL ----CREATININE 1.03 20181104 0.80-1.40 MG/DL ---- eGFR AMER. 77 20181104 >60 ML/MIN/1.73 SEDIMENTATION RATE ----SEDIMENTATION RATE 8 20181104 0-15 MM/HOUR Summary Purpose eClinicalWorks Submission
--- OUTSIDE RECORDS SUMMARY | 2019-03-17 07:18 | XMS REPORT ---
Author Gregory Lundberg Organization eClinicalWorks Address Unknown Phone Unavailable Care Team Providers Care Web Content Specialist Name Role Phone Gregory Ingram CP Unavailable Allergies No Known Allergies Problems Problem Type Condition Code Onset Dates Condition Status Problem Long-term use of high-risk medication Z79.899 Active Problem Knee pain, right M25.561 Active Problem Vitamin D deficiency E55.9 Active Problem 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 Active Medications No Known Medications Results No Known Results Summary Purpose eClinicalWorks Submission
--- OUTSIDE RECORDS SUMMARY | 2019-03-17 07:18 | XMS REPORT ---
Author Author Evaristo Olguin [facility] eClinicalWorks Address Unknown Phone Unavailable Care Team Providers Care Global Climate Change Analyst Name Role Phone Evaristo Olguin Unavailable Allergies, Adverse Reactions, Alerts Substance Reaction Event Type Remicade Info Not Available Drug Allergy Mirapex nausea/emesis Non Drug Allergy Latex Info Not Available Non Drug Allergy Celebrex GI upset Non Drug Allergy Arthrotec Info Not Available Non Drug Allergy Problems Problem Type Condition Code Onset Dates Condition Status Assessment Nausea R11.0 Active Problem 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 Active Assessment 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 Active Assessment Long-term use of high-risk medication Z79.899 Active Problem Abdominal pain R10.9 Active Problem Neck mass R22.1 Active Problem Nausea R11.0 Active Problem Long-term use of high-risk medication Z79.899 Active Problem Knee pain, right M25.561 Active Problem Dizziness R42 Active Problem Vitamin D deficiency E55.9 Active Medications Medication Code System Code Instructions Start Date End Date Status Dosage Chlordiazepoxide HCl [facility] 85979445508 25 MG Orally tid for nausea Aug 12, 2018 Inactive 1 capsule Chlordiazepoxide HCl [facility] 38575391550 10 MG Orally Twice a day Sep 09, 2018 Active 1 capsule Nexium [facility] 54882720238 40 MG prn Active TAKE ONE CAPSULE BY MOUTH EVERY DAY Simponi Aria [facility] 95258627999 50 MG/4ML Intravenous Sep 02, 2017 Active as directed Atenolol ND 76869330394 50MG Orally Once a day Active 1 tablet Gabapentin [facility] [address]-40 300 MG Orally Once a day Active 1 tablet PredniSONE [facility] 28798895406 5 MG Orally Once a day Aug 05, 2018 December 03, 2018 Active 1-2 tabs prn for arthritis flare up Zofran [facility] 02188696117 8 MG Orally Twice a day Aug 05, 2018 Active 1 tablet Tylenol/Codeine #3 ND 92807952773 300-30 MG Orally qid Jun 10, 2018 Active 1 tablet as needed Meclizine HCl [facility] 43463407772 25 MG Orally Once a day Jun 10, 2018 Active 1 tablet as needed Vital Signs Date/Time: Sep 09, 2018 BMI 33.37 Index Weight 226 lbs Height 69 in Temperature 98.8 F Cardiac Monitoring Heart Rate 74 /min Blood Pressure Diastolic 70 mm Hg Blood Pressure Systolic 118 mm Hg Results No Known Results Summary Purpose eClinicalWorks Submission
--- OUTSIDE RECORDS SUMMARY | 2019-03-17 07:18 | XMS REPORT ---
Author Author Gregory Ingram Organization eClinicalWorks Address Unknown Phone Unavailable Care Team Providers Care Fluorescent Lamp Replacer Name Role Phone Gregory Ingram CP Unavailable Allergies No Known Allergies Problems Problem Type Condition Code Onset Dates Condition Status Problem 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 Active Problem Abdominal pain R10.9 Active Problem Neck mass R22.1 Active Problem Nausea R11.0 Active Problem Long-term use of high-risk medication Z79.899 Active Problem Knee pain, right M25.561 Active Problem Dizziness R42 Active Problem Vitamin D deficiency E55.9 Active Medications No Known Medications Results No Known Results Summary Purpose eClinicalWorks Submission
--- OUTSIDE RECORDS SUMMARY | 2019-03-17 07:18 | XMS REPORT ---
Author Author Gregory Ingram [facility] eClinicalWorks Address Unknown Phone Unavailable Care Team Providers Care Health Systems Analyst Name Role Phone Gregory Ingram CP Unavailable [...] multiple sites in spine M45.0 Active Assessment Abdominal pain R10.9 Active Assessment 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 Active Problem Abdominal pain R10.9 Active Problem Neck mass R22.1 Active Problem Nausea R11.0 Active Problem Long-term use of high-risk medication Z79.899 Active Problem Knee pain, right M25.561 Active Problem Dizziness R42 Active Problem Vitamin D deficiency E55.9 Active Medications Medication Code System Code Instructions Start Date End Date Status Dosage Simponi Aria [facility] 25946698843 50 MG/4ML Intravenous Sep 02, 2017 Active as directed PredniSONE ND 72149017996 5 MG Orally Once a day Aug 05, 2018 December 03, 2018 Active 1-2 tabs prn for arthritis flare up Zofran ND 09652443137 8 MG Orally Twice a day Aug 05, 2018 Active 1 tablet Nexium ND 30979816694 40 MG prn Active TAKE ONE CAPSULE BY MOUTH EVERY DAY Atenolol ND 02138208127 50MG Orally Once a day Active 1 tablet Meclizine HCl ND 02719497113 25 MG Orally Once a day Jun 10, 2018 Active 1 tablet as needed Tylenol/Codeine #3 [facility] 50270692876 300-30 MG Orally qid Jun 10, 2018 Active 1 tablet as needed Gabapentin [facility] [address]-69 300 MG Orally Once a day Active 1 tablet Chlordiazepoxide HCl ND 02309701669 25 MG Orally tid for nausea Aug 12, 2018 Active 1 capsule Vital Signs Date/Time: Aug 12, 2018 BMI 29.98 Index Weight 221.1 lbs Height 72 in Temperature 97.2 F Cardiac Monitoring Heart Rate 76 /min Blood Pressure Diastolic 80 mm Hg Blood Pressure Systolic 112 mm Hg Results No Known Results Summary Purpose eClinicalWorks Submission
--- OUTSIDE RECORDS SUMMARY | 2019-03-17 07:18 | XMS REPORT ---
Author Author Evaristo Olguin [facility] eClinicalWorks Address Unknown Phone Unavailable Care Team Providers Care Bull Riveter Name Role Phone Evaristo Olguin CP Unavailable [...] Instructions Start Date End Date Status Dosage Medrol Dose [facility] 54948211308 4mg Orally once a day December 01, 2018 December 07, 2018 Active as directed Results No Known Results Summary Purpose eClinicalWorks Submission
--- OUTSIDE RECORDS SUMMARY | 2019-03-17 07:18 | XMS REPORT ---
Author Author Evaristo Olguin [facility] eClinicalWorks Address Unknown Phone Unavailable Care Team Providers Care Timber Faller Name Role Phone Evaristo Olguin Unavailable Allergies, [...] Start Date End Date Status Dosage Gabapentin [facility] [address]-03 300 MG Orally Once a day Active 1 tablet PredniSONE [facility] 46491431209 5 MG Orally Once a day Aug 05, 2018 Active 1- 2 tabs prn for arthritis flare up Tylenol/Codeine #3 [facility] 14650915384 300-30 MG Orally qid Jun 10, 2018 Active 1 tablet as needed Meclizine HCl [facility] 53470895142 25 MG Orally Once a day Jun 10, 2018 Active 1 tablet as needed Chlordiazepoxide HCl [facility] 67367403101 10 MG Orally Twice a day Sep 09, 2018 Active 1 capsule Nexium [facility] 61654218751 40 MG prn Active TAKE ONE CAPSULE BY MOUTH EVERY DAY Zofran [facility] 33651144102 8 MG Orally Twice a day Aug 05, 2018 Active 1 tablet Simponi Aria [facility] 25678582116 50 MG/4ML Intravenous Sep 02, 2017 Active as directed Atenolol [facility] 40835164749 50MG Orally Once a day Active 1 tablet Vital Signs Date/Time: January 05, 2019 BMI 31.56 Index Weight 220.0 lbs Height 70 in Temperature 96.8 F Cardiac Monitoring Heart Rate 68 /min Blood Pressure Diastolic 80 mm Hg Blood Pressure Systolic 140 mm Hg Results No Known Results Summary Purpose eClinicalWorks Submission
--- OUTSIDE RECORDS SUMMARY | 2019-03-17 07:19 | XMS REPORT ---
Author Author Duane Mcdonnell [facility] eClinicalWorks Address Unknown Phone Unavailable Care Team Providers Care Overweaver Name Role Phone Duane Mcdonnell CP Unavailable Allergies No Known Allergies Problems Problem Type Condition Code Onset Dates Condition Status Problem Arthralgia of bilateral temporomandibular joint M26.623 Active Problem Adverse effect of other drugs, medicaments and biological substances, sequela T50.995S Active Problem Arthralgia of right temporomandibular joint M26.621 Active Problem Otorrhea, right ear H92.11 Active Problem Acute serous otitis media, left ear H65.02 Active Problem Acute suppurative otitis media without spontaneous rupture of ear drum, right ear H66.001 Active Problem Otalgia, right ear H92.01 Active Problem Other marginal perforations of tympanic membrane, right ear H72.2X1 Active Problem Swelling, mass, lump in neck R22.1 Active Problem Hearing loss, 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
--- OUTSIDE RECORDS SUMMARY | 2019-03-17 07:19 | XMS REPORT ---
Author Author Duane Mcdonnell [facility] eClinicalWorks Address Unknown Phone Unavailable Care Team Providers Care Practice Director Name Role Phone Duane Mcdonnell Unavailable Allergies, Adverse Reactions, Alerts Substance Reaction Event Type Latex Gloves Info Not Available Drug Allergy Problems Problem Type Condition Code Onset Dates Condition Status Assessment Nasal congestion R09.81 Active Problem Ankylosing spondylitis of unspecified sites in spine M45.9 Active Assessment Acute reactive otitis externa, bilateral H60.553 Active Problem Allergic rhinitis J30.89 Active Assessment Aural vertigo, 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 Problem Arthralgia of bilateral temporomandibular joint M26.623 Active Problem Adverse effect of other drugs, medicaments and biological substances, sequela T50.995S Active Problem Arthralgia of right temporomandibular joint M26.621 Active Problem Otorrhea, right ear H92.11 Active Problem Acute serous otitis media, left ear H65.02 Active Assessment Unsteadiness on feet R26.81 Active Assessment Arthralgia of bilateral temporomandibular joint M26.623 Active Problem Acute suppurative otitis media without spontaneous rupture of ear drum, right ear H66.001 Active Assessment Attic perforation of tympanic membrane, right ear H72.11 Active Problem Otalgia, right ear H92.01 Active Problem Other marginal perforations of tympanic membrane, right ear H72.2X1 Active Problem Swelling, mass, lump in neck R22.1 Active Problem Hearing loss, 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 [address]-33 Active not defined Nasacort [facility] 43472432531 55 MCG/ACT Nasally Once a day Jul 31, 2018 Active 2 puffs in each nostril Ciprodex [facility] 77904290883 0.3-0.1 % Otic Twice a day December 11, 2017 Active 4 drops into affected ear Gabapentin NDC 0 Active not defined Ranitidine HCl [facility] 74489885063 150 MG Orally Twice a day Jul 16, 2017 Active 1 tablet Ofloxacin [facility] 95448085719 0.3 % Otic twice a day Jul 31, 2018 Aug 06, 2018 Active 4 drops into affected ear Acetamin NDC 0 Active not defined Ciprodex [facility] [address]-47 Active not defined Atenolol NDC 0 Active not defined Results No Known Results Summary Purpose eClinicalWorks Submission
--- OUTSIDE RECORDS SUMMARY | 2019-03-17 07:19 | XMS REPORT | Continuity of Care Document ---
Author Author [facility] Organization [facility] Address [address] [place] [address] ;[id number] Care Team Providers Care Fingerprinter Name Role Phone JOE EASLEY Admphys JOE EASLEY [facility] Admission Diagnosis Code Admission Diagnosis Date [id number] Chest injury Social History Element Description Code Description Smoking Status Code System Start Date End Date Smoking Status [id number] Never smoker SNOMED-CT Problems Code Code System Problem Name Start Date End Date Status 82880112 SNOMED-CT Closed fracture of one rib 02/22/2018 Active Medications RxNorm Medication Dose Route Instructions Indications Start Date End Date Status 442878 Acetaminophen 300 MG / Codeine Phosphate 60 MG Oral Tablet 1 tablet Oral orally every 6 hours Active 864937 Atenolol 50 MG Oral Tablet 50 milligram Oral orally once daily before breakfast Active 841049 gabapentin 600 MG Oral Tablet 600 milligram Oral orally 3 times per day Active Allergies Code Code System Allergy Substance Type Reaction Severity Start Date End Date Status 4509440 RXNorm latex Drug allergy Unknown Active Results Radiology Results Order: [id number] XR RIBS UNILATERAL/ PA CHEST* Exam Completion Date:02/22/2018 12:32 Procedures: XR RIBS UNILATERAL/ PA CHESTExam Date: 02/22/2018 12:32 PMOrdering Physician: JOE Barajasinical Indication: LEFT RIB SERIESComparison: None a vailable. Findings: Frontal radiograph of the chest with oblique rib radiogr aphs. Surgical clips overlie the right upper quadrant of the abdomen. No effu karl, pneumothorax, or focal consolidation. Linear attenuation withinthe right lung base likely represents atelectasis versus scarring. Nosignificant radiograp hic abnormalities of the cardiomediastinal silhouette. Probable remote posterio r lateral rib fractures of the inferior right thorax;otherwise, no radiographica lly apparent displaced rib fractures or other acuteradiographic abnormality of t he osseous structures or left thorax.Impression: No acute radiographic abnormali ties of the thorax. Noradiographically apparent displaced rib fractures. This final report was electronically signed by Dr Ag Sr MD02/23/2018 1: 58 PMDictated By: AG WATSONDate: 02/23/2018 14:04 Vital Signs Vitals Value Date Body Temperature 98.2 F 02/22/2018 Respiratory Rate 20 02/22/2018 O2% BldC Oximetry 98 02/22/2018 BP Systolic 128 mmHg 02/22/2018 BP Diastolic 71 mmHg 02/22/2018 Height 71 in 02/22/2018 Weight Measured 237 lbs 02/22/2018 BSA (Body Surface Area) 2.95179 02/22/2018 BMI (Body Mass Index) 33.1 02/22/2018 Plan of Care * No data in the system Procedures Code Code System Procedure Name Target Site Date of Procedure XR RIBS UNILATERAL/ PA CHEST 02/23/2018 14:04 Encounters Date Code Diagnosis Status (SNOMED-CT) - 74675265 FX 1 RIB LT SIDE INITIAL CLOS FX Active Immunizations * No data in the system Functional Status * No data in the system Hospital Discharge Instructions * Discharge Instructions 2* Important Information* Consult your physician or return to the Emergency Department immediately if worse, if not better as expected, or if any problems arise. * Please understand that you have received care only on an emergency basis. If your condition does not improve, you should call your personal physician for follow-up care. If you do not have a physician, you may call the referred physician listed. * If you have questions about your care or these discharge instructions, you may call the Emergency Department. Please take your discharge paperwork with you to any follow-up appointments. * Follow-Up With:* Primary Care Physician * Follow-Up Notes:* follow up as needed
--- OUTSIDE RECORDS SUMMARY | 2019-03-17 07:19 | XMS REPORT ---
Author Author [facility] Address Unknown Phone Unavailable Care Team Providers Care Computer Systems Hardware Analyst Name Role Phone ELMIRA HUGHES Unavailable Unavailable JOE EASLEY Unavailable Unavailable KLAUDIA ARZOLA Unavailable Unavailable Gigi PRAKASH Unavailable Unavailable Payers Payer Name Policy Type Policy Number Effective Date Expiration Date Problems This patient has no known problems. Allergies, Adverse Reactions, Alerts Allergy Name Allergy Type Status Severity Reaction(s) Onset Date Inactive Date Treating Clinician Comments latex DA Active U 2019-01-21 00:00:00 latex DA Active U 2013-02-17 00:00:00 Medications This patient has no known medications. Results Test Description Test Time Test Comments Text Results Atomic Results Result Comments CHEST 2 VIEWS 2019-03-11 17:12:00 [place] [address] Patient Name: NOEMY ARGUETA MR #: [id number] : 1935 Age/Sex: 83/M Req #: [id number] Adm Physician: Ordered by: ELMIRA HUGHES MD Report #: [id number] Location: OR Room/Bed: Procedure: [id number] DX/CHEST 2 VIEWS Exam Date: 03/11/19 Exam Time: 1619 REPORT STATUS: Signed Frontal and lateral views of the chest. HISTORY: PREOP, pilonidal cyst COMPARISON: None available. DISCUSSION: Lungs: Mild bibasilar atelectasis versus scarring. Superimposed right lung base peripheral contusion is possible in the setting of recent trauma. Pleura: No pleural effusion or evidence of a pneumothorax. Heart and mediastinum: The cardiomediastinal silhouette appears unremarkable. Bones and soft tissues: Diffusely decreased mineralization of the osseous structures limits bone detail. Age uncertain unhealed fracture deformities of the right sixth, seventh, eighth, and ninth ribs. The fractures are most likely subacute. Mild accentuation of the thoracic kyphosis. Mild multilevel degenerative disc changes. IMPRESSION: Unhealed right rib fracture deformities with adjacent atelectasis, pulmonary contusion, and/or scarring. Correlate with specific history and for focal acute point tenderness. Signed by: Dr. Shyam Rodríguez D.O., M.M.M. on 03/11/2019 5:19 PM Dictated By: SHYAM RODRÍGUEZ DO 18 Transcribed By: APOORVA on 03/11/191718 COPY TO: ELMIRA HUGHES MD GLUBED 2019-01-23 17:11:00 GLUBED (test code=GLUBED) 98 mg/dL 74-106 [facility] [id number] 12:12:00* Test Item Value Reference Range Comments GLUBED (test code=GLUBED) 163 mg/dL 74-106 [facility] [id number] 08:00:00* Test Item Value Reference Range Comments GLUBED (test code=GLUBED) 90 mg/dL 74-106 [facility] BASIC METABOLIC [id number] 05:35:00* Test Item Value Reference Range Comments SODIUM (test code=NA) 141 mmol/L 136-145 POTASSIUM (test code=K) 3.6 mmol/L 3.5-5.1 CHLORIDE (test code=CL) 110.0 mmol/L 98-107 CARBON DIOXIDE (test code=CO2) 26.0 mmol/L 21-32 ANION GAP (test code=GAP) 8.6 10-20 GLUCOSE (test code=GLU) 185 mg/dL 74-106 BLOOD UREA NITROGEN (test code=BUN) 12 mg/dL 7-18 GLOMERULAR FILTRATION RATE (test code=GFR) > 60 mL/min >=60 Estimated GFR by using Modified MDRD formula.Chronic kidney disease is defined as either kidney damageor GFR <60 mL/min/1.73 m2 for >3 months. CREATININE (test code=CREAT) 1.10 mg/dL 0.7-1.3 BUN/CREATININE RATIO (test code=BUN/CREA) 10.9 10-20 CALCIUM (test code=CA) 8.0 mg/dL 8.5-10.1 CREATINE KINASE (CK)2019-01-23 05:35:00* Test Item Value Reference Range Comments CREATINE KINASE (CK) (test code=CK) 2348 IUnit/L 26-208 BASIC METABOLIC [id number] 05:16:00* Test Item Value Reference Range Comments SODIUM (test code=NA) 141 mmol/L 136-145 POTASSIUM (test code=K) 3.6 mmol/L 3.5-5.1 CHLORIDE (test code=CL) 110.0 mmol/L 98-107 CARBON DIOXIDE (test code=CO2) mmol/L 21-32 ANION GAP (test code=GAP) 10-20 GLUCOSE (test code=GLU) mg/dL 74-106 BLOOD UREA NITROGEN (test code=BUN) mg/dL 7-18 GLOMERULAR FILTRATION RATE (test code=GFR) mL/min >=60 CREATININE (test code=CREAT) mg/dL 0.7-1.3 BUN/CREATININE RATIO (test code=BUN/CREA) 10-20 CALCIUM (test code=CA) mg/dL 8.5-10.1 CREATINE KINASE (CK)2019-01-23 05:16:00* Test Item Value Reference Range Comments CREATINE KINASE (CK) (test code=CK) IUnit/L 26-208 [id number] 20:59:00* Test Item Value Reference Range Comments GLUBED (test code=GLUBED) 125 mg/dL 74-106 [facility] [id number] 16:45:00* Test Item Value Reference Range Comments GLUBED (test code=GLUBED) 107 mg/dL 74-106 [facility] lye peel [facility] URINALYSIS [id number] 13:53:00* Test Item Value Reference Range Comments UA COLOR (test code=COLU) LIGHT YELLOW YELLOW UA APPEARANCE (test code=APPU) CLEAR CLEAR UA GLUCOSE DIPSTICK (test code=DGLUU) NEGATIVE mg/dL NEGATIVE UA BILIRUBIN DIPSTICK (test code=BILU) NEGATIVE mg/dL NEGATIVE UA KETONE DIPSTICK (test code=KETU) NEGATIVE mg/dL NEGATIVE UA SPECIFIC GRAVITY (test code=SGU) 1.012 1.001-1.035 UA BLOOD DIPSTICK (test code=MARGO) 1+ (Small) mg/dL NEGATIVE UA PH DIPSTICK (test code=SARAVANAN) 6.0 5.0-8.0 UA PROTEIN DIPSTICK (test code=PROU) NEGATIVE mg/dL NEGATIVE UA UROBILINIOGEN DIPSTICK (test code=URO) NEGATIVE mg/dL NEGATIVE UA NITRITE DIPSTICK (test code=BRAYDEN) NEGATIVE NEGATIVE UA LEUKOCYTE ESTERASE W REFLEX (test code=LEUUR) NEGATIVE Sean/uL NEGATIVE UA WBC (test code=WBCU) 0-5 per HPF 0-5 UA RBC (test code=RBCU) 0-3 #/HPF 0-5 UA EPITHELIAL CELLS (test code=EPIU) FEW per HPF FEW UA BACTERIA (test code=BACU) FEW #/HPF NONE Urine Source? Clean CatchURINALYSIS [id number] 13:49:00* Test Item Value Reference Range Comments UA COLOR (test code=COLU) LIGHT YELLOW YELLOW UA APPEARANCE (test code=APPU) CLEAR CLEAR UA GLUCOSE DIPSTICK (test code=DGLUU) NEGATIVE mg/dL NEGATIVE UA BILIRUBIN DIPSTICK (test code=BILU) NEGATIVE mg/dL NEGATIVE UA KETONE DIPSTICK (test code=KETU) NEGATIVE mg/dL NEGATIVE UA SPECIFIC GRAVITY (test code=SGU) 1.012 1.001-1.035 UA BLOOD DIPSTICK (test code=MARGO) 1+ (Small) mg/dL NEGATIVE UA PH DIPSTICK (test code=SARAVANAN) 6.0 5.0-8.0 UA PROTEIN DIPSTICK (test code=PROU) NEGATIVE mg/dL NEGATIVE UA UROBILINIOGEN DIPSTICK (test code=URO) NEGATIVE mg/dL NEGATIVE UA NITRITE DIPSTICK (test code=BRAYDEN) NEGATIVE NEGATIVE UA LEUKOCYTE ESTERASE W REFLEX (test code=LEUUR) NEGATIVE Sean/uL NEGATIVE UA WBC (test code=WBCU) per HPF 0-5 UA RBC (test code=RBCU) per HPF 0-5 UA EPITHELIAL CELLS (test code=EPIU) per HPF Few UA BACTERIA (test code=BACU) per HPF NONE Urine Source? Clean [id number] 12:47:00* Test Item Value Reference Range Comments GLUBED (test code=GLUBED) 114 mg/dL 74-106 [facility] lye peel [facility] [id number] 08:17:00* Test Item Value Reference Range Comments GLUBED (test code=GLUBED) 96 mg/dL 74-106 [facility] lye peel operator [facility] BASIC METABOLIC [id number] 08:12:00* Test Item Value Reference Range Comments SODIUM (test code=NA) 141 mmol/L 136-145 POTASSIUM (test code=K) 3.7 mmol/L 3.5-5.1 CHLORIDE (test code=CL) 110.0 mmol/L 98-107 CARBON DIOXIDE (test code=CO2) 23.0 mmol/L 21-32 ANION GAP (test code=GAP) 11.7 10-20 GLUCOSE (test code=GLU) 94 mg/dL 74-106 BLOOD UREA NITROGEN (test code=BUN) 14 mg/dL 7-18 GLOMERULAR FILTRATION RATE (test code=GFR) > 60 mL/min >=60 Estimated GFR by using Modified MDRD formula.Chronic kidney disease is defined as either kidney damageor GFR <60 mL/min/1.73 m2 for >3 months. CREATININE (test code=CREAT) 0.90 mg/dL 0.7-1.3 BUN/CREATININE RATIO (test code=BUN/CREA) 15.6 10-20 CALCIUM (test code=CA) 8.4 mg/dL 8.5-10.1 CREATINE KINASE (CK)2019-01-22 08:12:00* Test Item Value Reference Range Comments CREATINE KINASE (CK) (test code=CK) 5208 IUnit/L 26-208 BASIC METABOLIC [id number] 07:39:00* Test Item Value Reference Range Comments SODIUM (test code=NA) 141 mmol/L 136-145 POTASSIUM (test code=K) 3.7 mmol/L 3.5-5.1 CHLORIDE (test code=CL) 110.0 mmol/L 98-107 CARBON DIOXIDE (test code=CO2) mmol/L 21-32 ANION GAP (test code=GAP) 10-20 GLUCOSE (test code=GLU) mg/dL 74-106 BLOOD UREA NITROGEN (test code=BUN) mg/dL 7-18 GLOMERULAR FILTRATION RATE (test code=GFR) mL/min >=60 CREATININE (test code=CREAT) mg/dL 0.7-1.3 BUN/CREATININE RATIO (test code=BUN/CREA) 10-20 CALCIUM (test code=CA) mg/dL 8.5-10.1 CREATINE KINASE (CK)2019-01-22 07:39:00* Test Item Value Reference Range Comments CREATINE KINASE (CK) (test code=CK) IUnit/L 26-208 [id number] 21:50:00* Test Item Value Reference Range Comments GLUBED (test code=GLUBED) 117 mg/dL 74-106 Performed by certified lye peel operator at [facility] - CT L-SPINE W/O [id number] 19:37:00 Name: NOEMY ARGUETA [facility] : 1935 Age/S: 83 / M [address] [facility] Unit #: [id number] Loc: [place] [address] Phys: Shannon Corey MD Acct: [id number] Dis Date: Status: ADM IN PHONE #: [phone] Exam Date: 01/21/20191918 FAX #: [phone] Reason: H/o fall EXAMS: CPT CODE: [id number] CT L-SPINE W/O CONTRAST 43712 REASON FOR EXAM: H/o fall EXAM ORDER DATE: 01/21/2019 1:48 PM Ordering M.DChaz: Shannon Corey MD PROCEDURE: - CT L-SPINE W/O CONTRAST FINDINGS: CT images of the lumbar spine were obtained without IV contrast at 2.5mm. Reconstructed coronal and sagittal images were also provided. Dose modulation, iterative reconstruction, and/or weight based adjustment of the MA/KV was utilized to reduce the radiation dose to as low as reasonably achievable. The osseous structures are intact. Small anterior osteophytes seen at L5 The central canal is patent. The disc spaces are maintained. IMPRESSION: No acute osseous abnormality at 1937 Reported and signed by: Fernando Davis M.D. CC: David Edwards MD; Shannon Corey MD; Colleen Shaw MD Technologist:RT MARGO(R) CT CTDI: DLP: Trnscb Date/Time: 01/21/2019 (1936) t.SDR.VTL Orig Print D/T: S: 01/21/2019 (1940) CTDI: DLP: PAGE 1 Signed Report - CT T-SPINE W/O CONTRAST 2019-01-21 19:35:00 Name: NOEMY ARGUETA [facility] : 1935 Age/S: 83 / M [address] [facility] Unit #: [id number] Loc: [place] [address] Phys: Shannon Corey MD Acct: [id number] Dis Date: Status: ADM IN PHONE #: [phone] Exam Date: 01/21/2019 191 FAX #: [phone] Reason: H/o fall EXAMS: CPT CODE: [id number] CT T-SPINE W/O CONTRAST 64255 REASON FOR EXAM: H/o fall EXAM ORDER DATE: 01/21/2019 1:48 PM Ordering Nancy: Shannon Corey MD PROCEDURE: - CT T-SPINE W/O CONTRAST FINDINGS: CT images of the thoracic spine were obtained without IV contrast at 2.5mm. Reconstructed coronal and sagittal images were also provided. Dose modulation, iterative reconstruction, and/or weight based adjustment of the MA/KV was utilized to reduce the radiation dose to as low as reasonably achievable. The osseous structures are intact. The central canal is patent. The disc spaces are maintained. IMPRESSION: Unremarkable thoracic spine. Incidental finding of a small right pleural effusion at 1935 Reported and signed by: Fernando Davis M.D. CC: David Edwards MD; Shannon Corey MD; Colleen Shaw MD Technologist:JENNIFER FERNANDEZ, RT(R) CT CTDI: DLP: Trnscb Date/Time: 01/21/2019 (1934) t.SDR.VTL Orig Print D/T: S: 01/21/2019 (1937) CTDI: DLP: PAGE 1 Signed Report - CT C-SPINE W/O CONTRAST 2019-01-21 19:34:00 Name: NOEMY ARGUETA [facility] : 1935 Age/S: 83 / M [address] [facility] Unit #: [id number] Loc: [place] [address] Phys: Shannon Corey MD Acct: [id number] Dis Date: Status: ADM IN PHONE #: [phone] Exam Date: 01/21/20191918 FAX #: [phone] Reason: H/o fall EXAMS: CPT CODE: [id number] CT C-SPINE W/O CONTRAST 19617 REASON FOR EXAM: H/o fall EXAM ORDER DATE: 01/21/2019 1:48 PM Ordering Nancy: Shannon Corey MD PROCEDURE: - CT C-SPINE W/O CONTRAST FINDINGS: CT images of the cervical spine were obtained without IV contrast at 2.5mm. Reconstructed coronal and sagittal images were also provided. Dose modulation, iterative reconstruction, and/or weight based adjustment of the MA/KV was utilized to reduce the radiation dose to as low as reasonably achievable. The osseous structures are intact. Minimal anterior subluxation at C4-5 The central canal is patent. 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 CC: David Edwards MD; Shannon Corey MD; Colleen Shaw MD Technologist:JENNIFER FERNANDEZ, RT(R) CT CTDI: DLP: Trnscb Date/Time: 01/21/2019 (1934) t.SDR.VTL Orig Print D/T: S: 01/21/2019 (1936) CTDI: DLP: PAGE 1 Signed Report [id number] 15:53:00* Test Item Value Reference Range Comments GLUBED (test code=GLUBED) 120 mg/dL 74-106 Performed by certified lye peel operator at [facility] - XR RIBS UNI W/CXR 3+V [id number] 12:17:00 FAX: Obey De Souza MD [phone] [place]: St: ADM FAX: Y David Edwards MD [phone] Name: NOEMY ARGUETA [facility] : 1935 Age/S: 83/M [address] [facility] Unit #: [id number] Loc: V.[facility] [place] [address] Phys: Obey De Souza MD Acct: [id number] Dis Date: Status: ADM IN PHONE #: [phone] Exam Date: 01/20/2019 2258 FAX #: [phone] Reason: rib pain, fall EXAMS: CPT CODE: [id number] XR RIBS UNI W/CXR 3+[place] [address] HISTORY: Pain after fall. COMPARISON: Chest x-ray from October 18, 2014. Chest x-ray and right rib series, 5 views: The lungs are clear of infiltrates, effusion or congestion. No pneumothorax. Lung scarring. Elevated right hemidiaphragm. Cardiomegaly. Nondisplaced posterolateral fractures of the right 6, 7 and 8 and 9 ribs. IMPRESSION: Nondisplaced fractures of the right 6-9 ribs. No pneumothorax. Lungs are clear. at 1217 Reported and signed by: Farrukh Leavitt M.D. CC: Obey Licona MD; David Edwards MD Technologist: PANDA TINOCO, Trnscrd Date/Time/By: 01/21/2019 (12 17) : By: Mario.TH4 Orig Print D/T: S: 01/22/2019 (1147) PAGE 1 Signed Report [id number] 12:13:00* Test Item Value Reference Range Comments GLUBED (test code=GLUBED) 114 mg/dL 74-106 Performed by certified lye peel operator at [facility] - CT HEAD/BRAIN W/O [id number] 12:02:00 Name: NOEMY ARGUETA [facility] : 1935 Age/S: 83 / M [address] [facility] Unit #: [id number] Loc: [place] [address] Phys: Obey De Souza MD Acct: [id number] Dis Date: Status: ADM IN PHONE #: [phone] Exam Date: 01/20/2019 2300 FAX #: [phone] Reason: fall/AMS EXAMS: CPT CODE: [id number] CT HEAD/BRAIN W/O CONT 30171 HISTORY: Confusion. COMPARISON: None available. CT brain without contrast: Automated exposure control. Note: Posterior fossa is extensively obscured by beam hardening artifact from patient's dental work and essentially nondiagnostic. No acute intracranial bleeds or extra-axial collections are noted. No acute territorial vascular infarction is noted. The sulci, gyri, ventricles and subarachnoid spaces and the basilar cisterns are normal for patient's age. No herniation or hydrocephalus or midline shift is noted. Mild periventricular ischemic gliosis is noted. Age-appropriate atrophy is noted as well. Portions of the visualized paranasal sinuses are normal. No obvious bony calvarial defect is noted. IMPRESSION: No acute intracranial bleeds or extra- axial collections. No acute territorial vascular infarction. No herniation or hydrocephalus or midline shift. 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 at 1202 Reported and signed by: Farrukh Leavitt M.D. CC: Obey De Souza MD; David Edwards MD Technologist:AG BENITEZ CT CTDI: DLP: Trnscb Date/Time: 01/21/2019 (1202) t.SDR.TH4 Orig Print D/T: S: 01/21/2019 (7765) CTDI: DLP: PAGE 1 Signed Report [id number] 07:52:00* Test Item Value Reference Range Comments GLUBED (test code=GLUBED) 100 mg/dL 74-106 Performed by certified lye peel operator at [facility] BASIC METABOLIC [id number] 23:39:00* Test Item Value Reference Range Comments SODIUM (test code=NA) 138 mmol/L 136-145 POTASSIUM (test code=K) 4.0 mmol/L 3.5-5.1 CHLORIDE (test code=CL) 104.0 mmol/L 98-107 CARBON DIOXIDE (test code=CO2) 26.0 mmol/L 21-32 ANION GAP (test code=GAP) 12.0 10-20 GLUCOSE (test code=GLU) 97 mg/dL 74-106 BLOOD UREA NITROGEN (test code=BUN) 18 mg/dL 7-18 GLOMERULAR FILTRATION RATE (test code=GFR) 53 mL/min >=60 Estimated GFR by using Modified MDRD formula.Chronic kidney disease is defined as either kidney damageor GFR <60 mL/min/1.73 m2 for >3 months. CREATININE (test code=CREAT) 1.30 mg/dL 0.7-1.3 BUN/CREATININE RATIO (test code=BUN/CREA) 13.8 10-20 CALCIUM (test code=CA) 8.9 mg/dL 8.5-10.1 CREATINE KINASE (CK)2019-01-20 23:39:00* Test Item Value Reference Range Comments CREATINE KINASE (CK) (test code=CK) 7841 IUnit/L 26-208 BASIC METABOLIC [id number] 23:09:00* Test Item Value Reference Range Comments SODIUM (test code=NA) 138 mmol/L 136-145 POTASSIUM (test code=K) 4.0 mmol/L 3.5-5.1 CHLORIDE (test code=CL) 104.0 mmol/L 98-107 CARBON DIOXIDE (test code=CO2) 26.0 mmol/L 21-32 ANION GAP (test code=GAP) 12.0 10-20 GLUCOSE (test code=GLU) 97 mg/dL 74-106 BLOOD UREA NITROGEN (test code=BUN) 18 mg/dL 7-18 GLOMERULAR FILTRATION RATE (test code=GFR) 53 mL/min >=60 Estimated GFR by using Modified MDRD formula.Chronic kidney disease is defined as either kidney damageor GFR <60 mL/min/1.73 m2 for >3 months. CREATININE (test code=CREAT) 1.30 mg/dL 0.7-1.3 BUN/CREATININE RATIO (test code=BUN/CREA) 13.8 10-20 CALCIUM (test code=CA) 8.9 mg/dL 8.5-10.1 CREATINE KINASE (CK)2019-01-20 23:09:00* Test Item Value Reference Range Comments CREATINE KINASE (CK) (test code=CK) IUnit/L 26-208 BASIC METABOLIC [id number] 23:02:00* Test Item Value Reference Range Comments SODIUM (test code=NA) 138 mmol/L 136-145 POTASSIUM (test code=K) 4.0 mmol/L 3.5-5.1 CHLORIDE (test code=CL) 104.0 mmol/L 98-107 CARBON DIOXIDE (test code=CO2) mmol/L 21-32 ANION GAP (test code=GAP) 10-20 GLUCOSE (test code=GLU) mg/dL 74-106 BLOOD UREA NITROGEN (test code=BUN) mg/dL 7-18 GLOMERULAR FILTRATION RATE (test code=GFR) mL/min >=60 CREATININE (test code=CREAT) mg/dL 0.7-1.3 BUN/CREATININE RATIO (test code=BUN/CREA) 10-20 CALCIUM (test code=CA) mg/dL 8.5-10.1 CREATINE KINASE (CK)2019-01-20 23:02:00* Test Item Value Reference Range Comments CREATINE KINASE (CK) (test code=CK) IUnit/L 26-208 CBC W/AUTO [id number] 22:47:00* Test Item Value Reference Range Comments WHITE BLOOD CELL (test code=WBC) 12.5 K/mm3 4.5-12.5 RED BLOOD CELL (test code=RBC) 4.68 mill/mm3 4.0-5.8 HEMOGLOBIN (test code=HGB) 13.8 gram/dL 13.0-17.5 HEMATOCRIT (test code=HCT) 43.7 % 42.0-52.0 MEAN CELL VOLUME (test code=MCV) 93.4 fL 80-98 MEAN CELL HGB (test code=MCH) 29.5 picogram 27.0-33.0 MEAN CELL HGB CONCETRATION (test code=MCHC) 31.6 gram/dL 33.0-36.0 RED CELL DISTRIBUTION WIDTH (test code=RDW) 14.6 % 11.6-16.2 RED CELL DISTRIBUTION WIDTH SD (test code=RDW-SD) 49.8 fL 37.0-51.0 PLATELET COUNT (test code=PLT) 143 K/mm3 150-450 MEAN PLATELET VOLUME (test code=MPV) 10.9 fL 6.7-11.0 NEUTROPHIL % (test code=NT%) 74.4 % 39.0-69.0 IMMATURE GRANULOCYTE % (test code=IG%) 0.6 % 0.0-5.0 LYMPHOCYTE % (test code=LY%) 13.0 % 25.0-55.0 MONOCYTE % (test code=MO%) 11.6 % 0.0-10.0 EOSINOPHIL % (test code=EO%) 0.1 % 0.0-5.0 BASOPHIL % (test code=BA%) 0.3 % 0.0-1.0 NUCLEATED RBC % (test code=NRBC%) 0.0 % 0-0 NEUTROPHIL # (test code=NT#) 9.30 K/mm3 1.8-7.7 IMMATURE GRANULOCYTE # (test code=IG#) 0.08 x10 3/uL 0-0.03 LYMPHOCYTE # (test code=LY#) 1.62 K/mm3 1.0-5.0 MONOCYTE # (test code=MO#) 1.45 K/mm3 0-0.8 EOSINOPHIL # (test code=EO#) 0.01 K/mm3 0.0-0.5 BASOPHIL # (test code=BA#) 0.04 K/mm3 0.0-0.2 NUCLEATED RBC # (test code=NRBC#) 0.00 K/mm3 0.0-0.1 MANUAL DIFF REQUIRED (test code=MDIFF) NO CBC W/AUTO [id number] 22:39:00* Test Item Value Reference Range Comments WHITE BLOOD CELL (test code=WBC) K/mm3 4.5-12.5 RED BLOOD CELL (test code=RBC) mill/mm3 4.0-5.8 HEMOGLOBIN (test code=HGB) 13.8 gram/dL 13.0-17.5 HEMATOCRIT (test code=HCT) 43.7 % 42.0-52.0 MEAN CELL VOLUME (test code=MCV) fL 80-98 MEAN CELL HGB (test code=MCH) picogram 27.0-33.0 MEAN CELL HGB CONCETRATION (test code=MCHC) gram/dL 33.0-36.0 RED CELL DISTRIBUTION WIDTH (test code=RDW) % 11.6-16.2 RED CELL DISTRIBUTION WIDTH SD (test code=RDW-SD) fL 37.0-51.0 PLATELET COUNT (test code=PLT) K/mm3 150-450 MEAN PLATELET VOLUME (test code=MPV) fL 6.7-11.0 NEUTROPHIL % (test code=NT%) % 39.0-69.0 IMMATURE GRANULOCYTE % (test code=IG%) % 0.0-5.0 LYMPHOCYTE % (test code=LY%) % 25.0-55.0 MONOCYTE % (test code=MO%) % 0.0-10.0 EOSINOPHIL % (test code=EO%) % 0.0-5.0 BASOPHIL % (test code=BA%) % 0.0-1.0 NEUTROPHIL # (test code=NT#) K/mm3 1.8-7.7 LYMPHOCYTE # (test code=LY#) K/mm3 1.0-5.0 MONOCYTE # (test code=MO#) K/mm3 0-0.8 EOSINOPHIL # (test code=EO#) K/mm3 0.0-0.5 BASOPHIL # (test code=BA#) K/mm3 0.0-0.2 XR RIBS UNILATERAL/ PA [id number] 14:04:37Procedures: XR RIBS UNILATERAL/ PA CHESTExam Date: 02/22/2018 12:32 PMOrdering Physician: JOE Barajasinical Indication: LEFT RIB SERIESComparison: None available.Findings: Frontal radiograph of the chest with oblique rib radiographs.Surgical clips overlie the right upper quadrant of the abdomen.No effusion, pneumothorax, or focal consolidation. Linear attenuation withinthe right lung base likely represents atelectasis versus scarring. Nosignificant radiographic abnormalities of the cardiomediastinal silhouette.Probable remote posterior lateral rib fractures of the inferior right thorax;otherwise, no radiographically apparent displaced rib fractures or other acuteradiographic abnormality of the osseous structures or left thorax.Impression: No acute radiographic abnormalities of the thorax. Noradiographically apparent displaced rib fractures.This final report was electronically signed by Dr Ag Sr MD02/23/2018 1:58 PMDictated By: AG WATSONDate: 02/23/2018 14:04MRI BRAIN WO [place] [address] Patient Name: NOEMY ARGUETA MR #: [id number] : 1935 Age/Sex: 82/M Req #: [id number] Adm Physician: KLAUDIA ARZOLA MD Ordered by: CARISSA ROSAS MD Report #: [id number] Location: [facility] Room/Bed: [place] [address] Procedure: [id number] MRI /MRI BRAIN WO Exam Date: 06/28/17 Exam Time: 1345 REPORT STATUS: Signed Exam: Brain MRI without IV contrast History: Vert igo, dizziness Comparison studies: Head CTs of 06/28/2017 and 06/18/2017. T echnique: Sagittal T2; axial DWI, FLAIR, MPGR, T1, Coronal T2 FLAIR. Intrav enous contrast: None Findings: Scalp: Normal in signal. No masses. B one marrow: Normal in signal intensity. Brain sulci: Mildly prominent. Ve ntricles: Mild compensatory dilatation. No hydrocephalus. Parenchyma: No mass, hemorrhage or acute ischemia. Focal T2 FLAIR hyperintensity in the left frontal parietal eason radiata white matter extends to the superior margin of the left putamen is compatible with chronic ischemic insult. Suprasellar r egion: No abnormalities. Craniocervical junction: Patent foramen magnum. No C hiari malformation . Vessels: Normal flow-voids in the arteries and sinuses. IMPRESSION: No acute intracranial abnormalities. Chronic findings: 1. Mild generalized volume loss. 2. Small chronic ischemic insult centered in the left eason radiata. Signed by: Dr. Elmira Vega M.D. on 06/28/2017 10:31 PM Dictated By: ELMIRA VEGA MD 30 Transcribed By: APOORVA on 06/28/172230 COPY TO: CARISSA ROSAS MD CHEST SINGLE (PORTABLE) [place] [address] Patient Name: NOEMY ARGUETA MR #: [id number] : 1935 Age/Sex: 82/M Req #: [id number] Adm Physician: Ordered by: ABEL DE LEÓN Report #: [id number] Location: ER Room/Bed: Procedure: [id number] DX/CHEST SINGLE (PORTABLE) Ex am Date: 06/28/17 Exam Time: 1105 REPORT STATUS : Signed PROCEDURE: A single AP view of the chest. COMPARISON: Chest x-ray of . INDICATIONS: DIZZINESS, NAUSEA FINDINGS: Lines/tubes: None. Lungs: Lungs are well-inflated. Mild central pulmonary venous congestion. Right basilar atelectasis. Pleura: There is no ple ural effusion or pneumothorax. Heart and mediastinum: The heart and the m ediastinum are unremarkable. Atherosclerotic calcifications in the aorta. Bones: No acute bony abnormality. IMPRESSION: Mild central pulm onary venous congestion with right basilar atelectasis. Dictated by: Олег Franco M.D. on 06/28/2017 at 11:41 Electronically approved by: Олег Franco M.D. on 06/28/2017 at 11:41 Dictated By: ОЛЕГ FRANCO MD Electronical ly Signed By: ОЛЕГ FRANCO MD on 06/28/17 1141 Transcribed By: SUMEET on 06/28/17 114 1 COPY TO: ABEL DE LEÓN CT BRAIN WO [place] [address] Patient Name: NOEMY ARGUETA MR #: [id number] : 1935 Age/Sex: 82/M Req #: [id number] Adm Physician: Ordered by: ABEL DE LEÓN Report #: [id number] Location: ER Room/Bed: Procedure: [id number] CT/CT BRAIN WO Exam Date: Exam Time: 1105 REPORT STATUS: Signed Examination: CT BRAIN WITHOUT CONTRAST History:Dizziness; nausea; vertigo; loss of balance. Comparison studies:Head CT dated 06/18/2017. Technique: Axial images were obtained from the skull base to the vertex. Coronal and sag ittal images reconstructed from the axial data. Intravenous contrast: None Findings: Scalp: No abnormalities. Bones: No fractures, blastic or lytic lesions. Brain sulci: Appropriate for age. Ventricles: Normal in size and configuration. No hydrocephalus. Extra-axial space: No abnormalities. Parenchyma: No abnormal densities. No masses, hemorrhage, or acute or chronic cortical vascular insults. Sellar/suprasellar region: CSF filled. Craniocervical junction: Patent foramen magnum. No Chiari one malformation. Incidental findings: None. Impression: No new or acute intracra nial abnormalities. No change from prior head CT dated 06/18/2017. Signed by: Dr. Terri Lyons M.D. on 06/28/2017 11:36 AM Dictated By: CALLIE LOYA MD 113 Transcribed By: APOORVA on 06/28/171135 COPY TO: SALTY DE LEÓN CT BRAIN WO [place] [address] Patient Name: NOEMY ARGUETA MR #: [id number] : 1935 Age/Sex: 82/M Req #: [id number] Adm Physician: Ordered by: MELANIE PRAKASH MD Report #: [id number] Location: Room/Bed: Procedure: [id number] CT/CT BRAIN WO Exam Date: Exam Time: 174 REPORT STATUS: Signed Examination: CT BRAIN WITHOUT CONTRAST History:Vertigo. Nausea. Comparis on studies:None Technique: Axial images were obtained from the skull base to the vertex. Coronal and sagittal images reconstructed from the axial data. Intravenous contrast: None Findings: Scalp: No abnormalities. Bon es: No fractures, blastic or lytic lesions. Brain sulci: Appropriate for ag e. Ventricles: Normal in size and configuration. No hydrocephalus. Extra- axial space: No abnormalities. Parenchyma: No abnormal densities. N o masses, hemorrhage, acute or chronic vascular insults. Sellar/suprasellar region: CSF filled sella. Craniocervical junction: Patent foramen magnum. No Chiari one malformation. Incidental findings: Atherosclerotic calcificat ion of the cavernous and supraclinoid internal carotid and V4 segments of the bilateral vertebral arteries.. Impression: No acute intracranial abn ormalities. Signed by: Dr. Terri Lyons M.D. on 06/18/2017 6:19 PM Dictated By: TERRI LOYA MD 18 Transcribed By: APOORVA on 06/18/171818 COPY TO: MELANIE PRAKASH MD
--- OUTSIDE RECORDS SUMMARY | 2019-03-17 07:19 | XMS REPORT ---
Author Author Gwen Borrego Organization [employer] Address Unknown Phone Unavailable Care Team Providers Care Paper Cup Machine Operator Name Role Phone Gwen Borrego CP Unavailable Allergies No Known Allergies Problems [...]
--- OUTSIDE RECORDS SUMMARY | 2019-03-17 07:19 | XMS REPORT ---
Author Author Gwen Borrego Organization [employer] Address Unknown Phone Unavailable Care Team Providers Care Senior Sourcing Manager Name Role Phone Gwen Borrego CP Unavailable Allergies No Known Allergies Problems Problem Type Condition Code Onset Dates Condition Status Problem Arthralgia of bilateral temporomandibular joint M26.623 Active Problem Arthralgia of right temporomandibular joint M26.621 Active Problem Adverse effect of other drugs, medicaments and biological substances, sequela T50.995S Active Problem Acute suppurative otitis media without spontaneous rupture of ear drum, right ear H66.001 Active Problem Acute serous otitis media, left ear H65.02 Active Problem Otorrhea, right ear H92.11 Active Problem Otalgia, right ear H92.01 Active Problem Other marginal perforations of tympanic membrane, right ear H72.2X1 Active Problem Swelling, mass, lump in neck R22.1 Active Problem Hearing loss, Sensorineural - Asymmetrical H90.5 Active Problem Ankylosing spondylitis of unspecified sites in spine M45.9 Active Problem Aural vertigo, 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 Problem Sinusitis - Chronic J32.8 Active Problem Allergic rhinitis J30.89 Active Problem Unsteadiness on feet R26.81 Active Problem Postnasal drip R09.82 Active Problem Nausea R11.0 Active Problem Hearing loss, Sensorineural - Bilateral H90.3 Active Medications No Known Medications Results No Known Results Summary Purpose [employer] Submission
[2019-03-17 10:45] VITALS: BP 118/74
--- NOTE | 2019-03-17 11:35 | Operative Report ---
DATE OF PROCEDURE: 03/17/2019 SURGEON: Francisco Burris MD PREOPERATIVE DIAGNOSIS: Pilonidal cyst. POSTOPERATIVE DIAGNOSIS: Pilonidal cyst. PROCEDURE: Wide excision of pilonidal cyst with layered closure. ELDERLY SITTER: None. ANESTHESIA: General. INDICATIONS AND FINDINGS: The patient is an 83-year-old male, who presented with complaints of pain with swelling in the sacral area. Exam revealed pilonidal cyst with sinus tract opening. At surgery, there was sinus opening within the sacral area, which extending down to the subcutaneous tissue to the presacral fascia, which was completely excised. TECHNIQUE: After adequate general endotracheal anesthesia with the patient in prone position, the sacral area was prepped and draped in a sterile fashion with Betadine solution. An elliptical incision made encompassing the sinus tract opening, carried down through the subcutaneous tissue to the deeper tissues and the cyst and sinus tract were completely excised down to the presacral fascia. Hemostasis was achieved with electrocautery. There was no granulation tissue, no purulence seen. The wound was irrigated with saline and infiltrated with 0.5% Marcaine. The wound was then closed in layers with 2-0 Vicryl to the deep subcutaneous tissue and more superficial subcutaneous tissues. The skin was closed with subcuticular suture of 4-0 Vicryl. Dermabond and sterile dressing were applied. The patient tolerated the procedure well. Estimated blood loss was 10 mL. There were no complications, all counts were correct and the patient was taken to the recovery room in satisfactory condition. MD TIM ArechigaG/MODL /[id number] cc: David Edwards
== END | disposition home or self-care (01) ==
LOC: OR 07:14
PROVIDERS: ATTEND Surgery
DX: L05.91 Pilonidal cyst without abscess (principal); S22.49XA Multiple fractures of ribs, unspecified side, initial encounter for closed fracture; G62.9 Polyneuropathy, unspecified; R00.2 Palpitations; K21.9 Gastro-esophageal reflux disease without esophagitis; W19.XXXA Unspecified fall, initial encounter; Z91.040 Latex allergy status; Z01.810 Encounter for preprocedural cardiovascular examination; Z01.812 Encounter for preprocedural laboratory examination; Z01.818 Encounter for other preprocedural examination; Z68.30 Body mass index [BMI] 30.0-30.9, adult; Z85.46 Personal history of malignant neoplasm of prostate
CPT/HCPCS: 11771; 36415; 71046; 80048; 85025; 88304; 93005; J0690; J1100; J2001; J2250; J2405; J2704; J3490

== ENCOUNTER 2019-05-13 23:42 | Observation (INO) | payer MEDICARE ==
[~2019-05-13] VITALS: Ht 177.8 cm; Wt 95.3 kg
[~2019-05-13 23:42] MED LIST changes: -BUPIVACAINE 0.5%/EPI 30 ML SDV INJ ONE; -CEFAZOLIN SOD 2 GM/D5W 50ML 50 ML IV ONE; -DESFLURANE 240 ML BTL INH ONE; -DEXAMETHASONE SOD PHOS INJ 4 MG/ML VIAL ONE; -EPHEDRINE SULFATE INJ 50 MG/10 ML SYR ONE; -FENTANYL CITRATE/PF 100MCG/2 ML INJ ONE; -GLYCOPYRROLATE INJ 1MG/ 5 ML SYR ONE; -HYDROGEN PEROXIDE 120 ML BTL ONE; -LIDOCAINE HCL 2% LOCAL INJ 5 ML SDV VIAL INJ ONE; -METHYLENE BLUE 1% INJ 10 ML VIAL INJ ONE; -MIDAZOLAM HCL 2 MG/2 ML VIAL ONE; -NEOSTIGMINE 5 MG/5ML SYR ONE; -ONDANSETRON HCL INJ 2MG/ML 2ML 2 MG/ML VIAL ONE; -PROPOFOL IV EMULSION 10 MG/ML 20 ML VIAL ONE; -ROCURONIUM BROMIDE 10 MG/ML 5ML VIAL ONE
--- OUTSIDE RECORDS SUMMARY | 2019-05-13 23:46 | XMS REPORT | Continuity of Care Document ---
Author Author Grand Perfecta Organization [employer] Address Unknown Phone Unavailable Care Team Providers Care Ammunition Storage Superintendent Name Role Phone Grand Perfecta Unavailable Unavailable Problems Problem Status Onset Date Classification Date Reported Comments Source Knee pain, right Active Problem 04/15/2019 Keegan Ingram Ankylosing spondylitis of multiple sites in spine Active Problem 04/15/2019 Keegan Ingram Long-term use of high-risk medication Active Problem 04/15/2019 Keegan Ingram Nausea Active Problem 04/15/2019 Keegan Ingram Abdominal pain Active Problem 04/15/2019 Keegan Ingram Shoulder pain, right Active Problem 04/15/2019 Keegan Ingram Vitamin D deficiency Active Problem 04/15/2019 Keegan Ingram Neck mass Active Problem 04/15/2019 Keegan Ingram Dizziness Active Problem 04/15/2019 Keegan Ingram Varicose veins of bilateral lower extremities with other complications Active Problem 01/25/2018 Philippe Gibson Bilateral lower extremity edema Active Problem 01/25/2018 Philippe Gibson Venous insufficiency Active Diagnosis 03/07/2017 Philippe Gibson Essential hypertension Active Problem 01/25/2018 Philippe Gibson Obesity Active Problem 01/25/2018 Philippe Gibson Osteoarthritis, unspecified osteoarthritis type, unspecified site Active Problem 01/25/2018 Philippe Gibson Family history of abdominal aortic aneurysm Active Problem 01/25/2018 Philippe Gibson Former smoker Active Problem 01/25/2018 Philippe Gibson Dyspnea, unspecified type Active Problem 01/25/2018 Philippe Gibson Preoperative cardiovascular examination Active Problem 01/25/2018 Philippe Gibson Status post ablation of incompetent vein using laser Active Problem 01/25/2018 Philippe Gibson Fatigue Active Diagnosis 12/19/2017 Keegan Ingram Medications [...] tid for nausea Clau 08/12/2018 Keegan Ingram PredniSONE 1-2 tabs prn for arthritis flare up Orally Active 5 MG Orally Once a day Clau 08/05/2018 Keegan Ingram Zofran 1 tablet Orally Active 8 MG Orally Twice a day Clau 08/05/2018 Keegan Ingram Meclizine HCl 1 tablet as needed Orally Active 25 MG Orally Once a day Clau 06/10/2018 Keegan Ingram Tylenol/Codeine #3 1 tablet as needed Orally Active 300-30 MG Orally qid Clau 06/10/2018 Keegan Ingram Vitamin D (Ergocalciferol) 1 capsule Orally Active 97148 UNIT Orally once a week [place] 12/17/2017 Keegan Ingram Simponi Aria as directed Intravenous Active 50 MG/4ML Intravenous Clau 09/02/2017 Keegan Ingram PredniSONE 1-2 tabs PRN Orally Active 5 MG Orally Once a day [place] 08/20/2017 Keeganjona Ingram PredniSONE 1-2 tabs PRN Orally Active [...] Orally Once a day Clau Keegan Ingram Azelastine HCl 1 puff in each nostril Nasally Active 0.1 % Nasally Twice a day Paige Gibson Triamterene-HCTZ 1 tablet in the morning Orally Active 75-50 MG Orally Once a day Paige Gibson Omeprazole 1 capsule Orally Active 40 MG Orally Once a day Paige Gibson Gabapentin 1 tablet Orally Active 600 MG Orally Three times a day Beamanda Gibson Pramipexole Dihydrochloride 1 tablet before bedtime Orally Active 0.25 MG Orally Once a day Paige Gibson Atenolol 1 tablet Orally Active 50 MG Orally Once a day Beamanda Gibson Hydrocodone-Acetaminophen 1 tablet as needed Orally Active 5- 325 MG Orally every 6 hrs Paige Gibson Stiolto Respimat 2 puffs Inhalation Active 2.5-2.5 MCG/ACT Inhalation Once a day Paige Gibson Asmanex 14 Metered Doses 1 puff in the evening Inhalation Active 220 MCG/INH Inhalation Once a day Beamanda Gibson Gabapentin 1 tablet Orally Active 300 MG Orally Once a day Claumichael Ingram Allergies, Adverse Reactions, Alerts Substance Category [...] Adverse Reaction Active 01/05/2019 Keegan Ingram Immunizations No Data Provided for This Section Results No Data Provided for This Section Pathology Reports No Data Provided for This Section Diagnostic Reports No Data Provided for This Section Consultation Notes No Data Provided for This Section Discharge Summaries No Data Provided for This Section History and Physicals No Data Provided for This Section Vital Signs Vital Sign Value Date Comments [...] 01/31/2017 Mohamed O Jeroudi Height 72 01/31/2017 Mohamed O Jeroudi Temperature Oral (F) 97.6 F 01/31/2017 Mohamed O Jeroudi Heart Rate 80 01/31/2017 Mohamed O Jeroudi Diastolic (mm Hg) 76 01/31/2017 Mohamed O Jeroudi Systolic (mm Hg) 132 01/31/2017 Mohamed O Jeroudi Weight 234 01/16/2017 Mohamed O Jeroudi Height 72 01/16/2017 Mohamed O Jeroudi Temperature Oral (F) 98.0 F 01/16/2017 Mohamed O Jeroudi Heart Rate 85 01/16/2017 Mohamed O Jeroudi Diastolic (mm Hg) 80 01/16/2017 Mohamed O Jeroudi Systolic (mm Hg) 128 01/16/2017 Mohamed O Jeroudi Encounters No Data Provided for This Section Procedures No Data Provided for This Section Assessment and Plan No Data Provided for This Section Plan of Care No Data Provided for This Section Social History No Data Provided for This Section Family History No Data Provided for This Section Advance Directives No Data Provided for This Section Functional Status No Data Provided for This Section
--- OUTSIDE RECORDS SUMMARY | 2019-05-13 23:46 | XMS REPORT ---
Author Author Gregory Ingram Organization [employer] Address Unknown Phone Unavailable Care Team Providers Care Bond Clerk Name Role Phone Gregory Ingram CP Unavailable [...]
[2019-05-14] LABS: BASOPHILS # (AUTO) 0.1 (0.0-0.1); BASOPHILS % 0.4 % (0.0-1.0); EOSINOPHILS # (AUTO) 0.1 (0.0-0.4); HEMATOCRIT 41.5 % (38.2-49.6); HEMOGLOBIN 13.7 g/dL (14.0-18.0); LYMPHOCYTES # (AUTO) 1.9 (1.0-3.2); LYMPHOCYTES % 14.2 % (18.0-39.1); MONOCYTES # (AUTO) 0.9 (0.2-0.8); MONOCYTES % 6.7 % (4.4-11.3); NEUTROPHILS # (AUTO) 10.2 (2.1-6.9); NEUTROPHILS % 77.2 % (38.7-80.0); PLATELET COUNT 186 x10e3/uL (140-360); RED BLOOD COUNT 4.56 x10e6/uL (4.3-5.7); RED CELL DISTRIBUTION WIDTH 13.5 % (11.7-14.4)
[2019-05-14] MEDS ORDERED: ACETAMINOPHEN 325 MG TAB PO ONE
[2019-05-14] MEDS ORDERED: SODIUM CHLORIDE 0.9% 1000ML 1,000 ML IV ONE ×2
--- NOTE | 2019-05-14 00:14 | NUR ---
pt given urinal, states he cannot void at present. awake alert skin w/d resp nonlab. nad noted
[2019-05-14 00:28] LABS: ALBUMIN 2.9 g/dL (3.5-5.0); ALBUMIN/GLOBULIN RATIO 0.9 (0.8-2.0); ANION GAP 12.7 mmol/L (8-16); CALCIUM 8.6 mg/dL (8.4-10.2); CREATININE, SERUM 1.61 mg/dL (0.72-1.25); POTASSIUM 3.7 mmol/L (3.5-5.1)
[2019-05-14 00:34] LABS: CREATINE KINASE MB 2.2 ng/mL (0-5.0)
--- NOTE | 2019-05-14 00:58 | Diagnostic Imaging Report ---
EXAMINATION: Head CT without contrast. HISTORY:Generalized weakness, status post fall. COMPARISON:Report of MRI brain and CT brain from 06/28/2017, prior images are not available for comparison at the time of interpretation. TECHNIQUE: Multidetector axial images were obtained from the foramen magnum to the vertex without contrast. The images were reconstructed using brain and bone algorithms. Thin section brain images were reformatted into coronal and sagittal planes. Dose modulation, iterative reconstruction, and/or weight based adjustment of the mA/kV was utilized to reduce the radiation dose to as low as reasonably achievable. Intravenous contrast: None IMAGE QUALITY: Acceptable. FINDINGS: Skull/scalp: No lytic or blastic. lesions. No surgical changes. Parenchyma: Nonspecific few, scattered supratentorial white matter hypodensity are likely related to small vessel ischemic changes. Focal hypodensity in left eason radiata and lentiform nucleus represents old vascular insult. No acute hemorrhage, mass or acute major vascular territorial infarct. Arteries: No density suggestive of thrombosis. Mild atherosclerotic calcification in bilateral carotid siphon. Dural sinuses: No abnormal density suggestive of thrombosis. Ventricles: Moderate compensated dilatation due to volume loss. No acute hydrocephalus. Extra-axial spaces: No abnormal density. Brain volume: Generalized age-related cerebral volume loss. Craniocervical junction: No mass, Chiari malformation, or basilar invagination. Sella: Enlarged partial empty sella. Paranasal/mastoid sinuses: Imaged portions unremarkable. IMPRESSION: No acute intracranial abnormality. Mild supratentorial white matter microvascular ischemic changes and old vascular insult in left eason radiata/putamen. Generalized age-related cerebral volume loss. Signed by: Dr. Emmy Moura M.D. on 05/14/2019 12:54 AM
--- NOTE | 2019-05-14 01:01 | Diagnostic Imaging Report ---
A single frontal view of the chest. HISTORY: Generalized weakness, fall COMPARISON: Chest radiograph March 11, 2019 DISCUSSION: Portable technique, limits sensitivity of the exam. Soft tissue attenuation partially limits sensitivity of the exam. Overlying monitoring leads. Tubes/Lines: None Lungs and pleura: Mild right greater than left atelectasis versus scarring. No evidence of a consolidative pneumonia or pulmonary alveolar edema. No definite pleural effusion or pneumothorax is identified. Heart and mediastinum: The cardiomediastinal silhouette appear(s) appears unchanged when allowing for the differences in technique. Bones and soft tissues: Interval healing of the right-sided rib fractures, the visualized portions now appear to be in the late stages of healing. No new acute displaced fracture is identified. IMPRESSION: 1. Mild right greater than left atelectasis versus scarring. 2. Interval near complete healing of the right-sided rib fractures. Signed by: Dr. Shyam Richardson D.O., M.M.M. on 05/14/2019 12:58 AM
--- NOTE | 2019-05-14 01:04 | Diagnostic Imaging Report ---
History: Fall. Comparison studies: None Technique: Axial images were obtained through the cervical region.. Coronal and sagittal images reconstructed from the axial data. Dose modulation, iterative reconstruction, and/or weight based adjustment of the mA/kV was utilized to reduce the radiation dose to as low as reasonably achievable. Intravenous contrast: None Findings: Fractures: None. Soft tissue injuries: None. Atlantoaxial articulation: Intact. Alignment: Reversal of normal cervical lordosis is either positional or due to muscle spasm. No scoliosis. 2 mm grade 1 anterolisthesis at C4-C5 and 3 mm grade 1 anterolisthesis at C5-C6. Cervicomedullary junction: No abnormalities. The foramen magnum is patent. Soft tissues: No abnormalities. Vertebrae: No fractures, infection or neoplasm. Degenerative changes: C3-C4: Moderate degenerative disc disease. Mild left foraminal stenosis due to facet and uncovertebral arthrosis. C4-C5: Mild degenerative disc disease. Posterior disc osteophyte complex results in mild canal stenosis. Moderate left foraminal stenosis due to facet and uncovertebral arthrosis. C5-C6: Moderate degenerative disc disease. Mild bilateral facet and uncovertebral arthrosis results in mild foraminal stenosis. . IMPRESSION: 1. No acute cervical spine fracture or dislocation. Reversal of normal cervical lordosis is either positional or due to muscle spasm. 2. Ligament, spinal cord and or vascular abnormalities cannot be excluded on the basis of this examination. 3. Grade 1 anterolisthesis at C4-C5 and C5-C6. 4. Cervical spondylosis as detailed above. Signed by: Dr. Emmy Moura M.D. on 05/14/2019 1:00 AM
[2019-05-14] MEDS: CEFTRIAXONE SOD 1 GM/NS 50 ML 50 ML IV SCH (01:34)
[2019-05-14] MEDS ORDERED: PANTOPRAZOLE SO40 MG PO (01:45)
[2019-05-14] MEDS ORDERED: ROPINIROLE HCL0.5 MG PO (01:45)
[2019-05-14] MEDS: AZITHROMYCIN 500MG/NS 250 ML 250 ML IV SCH (02:00)
--- NOTE | 2019-05-14 02:00 | NUR ---
pt states he cannot void and does not feel like he needs to void. md spoke with pt regarding in and out cath for urine, pt refuses. condom cath placed on patient, inst to void when he feels the need. placed on pressure relieving air mattress.
[2019-05-14] MEDS ORDERED: ONDANSETRON HCL INJ 2MG/ML 2ML 2 MG/ML VIAL IV STA (02:14)
--- OUTSIDE RECORDS SUMMARY | 2019-05-14 02:40 | XMS REPORT | Continuity of Care Document ---
Author Author [facility] Organization [facility] Address Unknown Phone Unavailable Care Team Providers Care Heel Room Supervisor Name Role Phone [facility] Unavailable Unavailable Problems Problem Status Onset Date Classification Date Reported Comments Source Knee pain, right Active Problem 04/15/2019 Keegan Ingram Ankylosing spondylitis of multiple sites in spine Active Problem 04/15/2019 Keegan Ingram Long-term use of high-risk medication Active Problem 04/15/2019 Keegan Ingram Nausea Active Problem 04/15/2019 Keegan Ingram Abdominal pain Active Problem 04/15/2019 Keegan Ingram Shoulder pain, right Active Problem 04/15/2019 eKegan Ingram Vitamin D deficiency Active Problem 04/15/2019 [...] Vitamin D (Ergocalciferol) 1 capsule Orally Active 92550 UNIT Orally once a week [place] 12/17/2017 Keegan Ingram Simponi Aria as directed Intravenous Active 50 MG/4ML Intravenous Clau 09/02/2017 Keegan Ingram PredniSONE 1-2 tabs PRN Orally Active 5 MG Orally Once a day [place] 08/20/2017 Keeganjona Ingram PredniSONE 1-2 tabs PRN [...]
[2019-05-14] MEDS: ALBUTEROL SULF 0.083% NEB SOLN 3 ML NEB NEB SCH ×6 (03:10→23:00)
[2019-05-14] MEDS ORDERED: LIDOCAINE JELLY 2% 10ML URO-JET TOP STA (03:29)
--- NOTE | 2019-05-14 03:29 | NUR ---
PT STATES STILL CANNOT VOID. AWARE, RECEIVED ORDER FOR CATH.
[2019-05-14] MEDS ORDERED: LIDOCAINE JELLY 2% 10ML URO-JET ONE (03:34)
[2019-05-14] MEDS: SODIUM CHLORIDE 0.9% 1000ML 1,000 ML IV SCH ×4 (03:39→22:14)
--- NOTE | 2019-05-14 03:39 | NUR ---
PT VOIDED IN CONDOM CATH, STRAIGHT CATH NOT DONE. SPECIMEN COLLECTED AND SENT TO LAB
[2019-05-14 03:48] LABS: BILIRUBIN,URINE NEGATIVE (NEGATIVE); CLARITY,URINE CLEAR (CLEAR); COLOR,URINE YELLOW (YELLOW); KETONES,URINE NEGATIVE (NEGATIVE); LEUKOCYTE ESTERASE ,URINE NEGATIVE (NEGATIVE); NITRITE,URINE NEGATIVE (NEGATIVE); PROTEIN,URINE DIPSTICK NEGATIVE (NEGATIVE); URINE UROBILINOGEN 0.2 mg/dL (0.2 - 1)
[2019-05-14 03:49] LABS: AMPHETAMINES SCREEN,URINE NEGATIVE (NEGATIVE); BENZODIAZEPINES SCREEN,URINE POSITIVE (NEGATIVE); PHENCYCLIDINE SCREEN,URINE NEGATIVE (NEGATIVE)
[2019-05-14 03:56] LABS: BACTERIA,URINE RARE /HPF; EPITHELIAL CELLS,URINE FEW /LPF; RBC,URINE 0-5 /HPF (0-5); WBC,URINE (MAN) 0-5 /HPF (0-5)
--- NOTE | 2019-05-14 04:49 | NUR ---
RESTING WITH EYES CLOSED, EASILY AROUSED, SKIN W/D RESP NONLAB. NAD NOTED. PT DENIES ANY COMPLAINTS
--- NOTE | 2019-05-14 06:07 | NUR ---
PT AWAKE ALERT SKIN W/D RESP NONLAB. NAD NOTED. AWAITING BED ASSIGNMENT
--- NOTE | 2019-05-14 06:48 | NUR ---
REPORT GIVEN TO DREW CURRAN
[2019-05-14] MEDS: IPRATROPIUM BROMIDE 0.02% 2.5 ML NEB NEB SCH ×3 (07:44→19:00)
[2019-05-14 08:15] LABS: CREATINE KINASE MB 5.7 ng/mL (0-5.0)
[2019-05-14 08:40] LABS: CREATINE KINASE MB 5.6 ng/mL (0-5.0)
[2019-05-14] MEDS: GABAPENTIN 300 MG CAP PO SCH ×3 (10:54→21:08)
[2019-05-14] MEDS: PANTOPRAZOLE SOD 40 MG TABEC PO SCH (10:54)
--- NOTE | 2019-05-14 12:34 | NUR ---
Dr. Shaw in room to see patient.
[2019-05-14] MEDS: ACETAMINOPHEN 325 MG TAB PO PRN (14:25)
[2019-05-14 15:44] VITALS: BP 108/62
--- NOTE | 2019-05-14 16:14 | NUR ---
Received patient from ER. Patient alert and oriented, hearing aids in place. No signs of distress. NS running @ 125 ml/hr. Fall precautions in place. Bed locked and in low position, side rails up. Bed alarm on, non-skid socks applied. Call light placed within reach; patient instructed on use and instructed to call for assistance and when getting out of bed. Patient verbalized understanding. Will continue to monitor.
[2019-05-14 16:20] VITALS: BP 108/62
--- NOTE | 2019-05-14 17:37 | Diagnostic Imaging Report ---
Bilateral hips, 2 views each. History: Status post fall with bruising to the left hip. Findings: The soft tissues are normal. Bone mineralization is normal. There is no evidence of fracture or dislocation. There are no lytic or sclerotic lesions. There is mild bilateral superior joint space narrowing with subchondral sclerosis. IMPRESSION: Mild hip DJD. No acute osseous abnormality. Signed by: Mac Vera on 05/14/2019 5:33 PM
[2019-05-14 17:52] VITALS: BP 108/62
--- NOTE | 2019-05-14 18:13 | History and Physical ---
Mr. Polanco is a very elderly 83-year-old man, who still lives by himself. CHIEF COMPLAINT: He reports he has been feeling weak, may have not been drinking enough fluids. May have been somewhat confused at home and fell down on the floor. He reports he had to crawl to the door to answer the ambulance arriving. PAST MEDICAL HISTORY: Significant for multiple hospitalizations in the last two 2 years including pilonidal cyst repair in February of 2019, dizziness in May 2017, and esophageal dilatation in April 2017. CURRENT MEDICATIONS: Please see the chart. PHYSICAL EXAMINATION: GENERAL: At this time shows an elderly white man, who is alert, responsive, and oriented. VITAL SIGNS: Blood pressure 110/70, pulse 70 and regular. HEAD, EYES, EARS, NOSE, AND THROAT: Unremarkable. NECK: No jugular venous distention. THORAX: Heart sounds S1 and S2 are equal. No murmurs. LUNGS: Clear. ABDOMEN: Protuberant. Normal bowel sounds. EXTREMITIES: Show purpura on the left lateral thigh. His sacrum shows healing pilonidal cyst. LABORATORY DATA: Chest x-ray suggests atelectasis and healing right rib fractures. BUN 20 and creatinine 1.6. White count 13.2. ASSESSMENT: 1. Fall. 2. Possible pneumonia. 3. Healing pilonidal cyst. PLAN: We will give fluids and antibiotics, and check x-ray of the left hip. We will have case management review his at home needs and further management based on clinical course. MD JENNIFER Delgado/PARISH /[id number] cc: David Edwards
[2019-05-14 19:47] VITALS: BP 118/77
[2019-05-14 19:48] VITALS: BP 118/77
--- NOTE | 2019-05-14 19:48 | NUR ---
received report from day nurse. patient is resting comfortably in bed. bed is in lowest position and call gomez is within reach. will continue to monitor patient.
[2019-05-14] MEDS ORDERED: ROPINIROLE HCL 0.25 MG TAB PO SCH (21:00)
[2019-05-14 23:54] VITALS: BP 110/49
[2019-05-15] MEDS: IPRATROPIUM BROMIDE 0.02% 2.5 ML NEB NEB SCH ×3 (01:00→15:11)
[2019-05-15] MEDS: CEFTRIAXONE SOD 1 GM/NS 50 ML 50 ML IV SCH (01:44)
[2019-05-15] MEDS: ACETAMINOPHEN 325 MG TAB PO PRN ×2 (01:44→15:05)
[2019-05-15] MEDS: AZITHROMYCIN 500MG/NS 250 ML 250 ML IV SCH (02:28)
[2019-05-15] MEDS: ALBUTEROL SULF 0.083% NEB SOLN 3 ML NEB NEB SCH ×4 (03:00→15:11)
[2019-05-15] MEDS: SODIUM CHLORIDE 0.9% 1000ML 1,000 ML IV SCH ×2 (04:54→11:34)
[2019-05-15 04:56] VITALS: BP 103/62
[2019-05-15 05:32] LABS: BASOPHILS % 0.4 % (0.0-1.0); EOSINOPHILS # (AUTO) 0.1 (0.0-0.4); EOSINOPHILS % 1.3 % (0.0-6.0); HEMATOCRIT 32.4 % (38.2-49.6); HEMOGLOBIN 10.7 g/dL (14.0-18.0); LYMPHOCYTES # (AUTO) 1.4 (1.0-3.2); LYMPHOCYTES % 19.8 % (18.0-39.1); MEAN CORPUSCULAR HEMOGLOBIN 30.1 pg (28-32); MEAN CORPUSCULAR VOLUME 91.3 fL (81-99); MONOCYTES # (AUTO) 0.7 (0.2-0.8); MONOCYTES % 9.9 % (4.4-11.3); NEUTROPHILS # (AUTO) 4.9 (2.1-6.9); NEUTROPHILS % 68.2 % (38.7-80.0); PLATELET COUNT 134 x10e3/uL (140-360); RED BLOOD COUNT 3.55 x10e6/uL (4.3-5.7); RED CELL DISTRIBUTION WIDTH 13.7 % (11.7-14.4)
[2019-05-15 05:56] LABS: ALANINE AMINOTRANSFERASE 6 IU/L (0-55); ALBUMIN 2.1 g/dL (3.5-5.0); ALBUMIN/GLOBULIN RATIO 0.8 (0.8-2.0); ALKALINE PHOSPHATASE 56 IU/L (40-150); ANION GAP 11.4 mmol/L (8-16); BLOOD UREA NITROGEN 15 mg/dL (7-26); BUN/CREATININE RATIO 16 (6-25); CALCIUM 7.6 mg/dL (8.4-10.2); CARBON DIOXIDE 23 mmol/L (22-29); CHLORIDE 110 mmol/L (98-107); CREATININE, SERUM 0.96 mg/dL (0.72-1.25); EST GLOMERULAR FILTRATION RATE > 60 ML/MIN (60-); GLUCOSE 122 mg/dL (74-118); POTASSIUM 3.4 mmol/L (3.5-5.1); SODIUM 141 mmol/L (136-145)
--- NOTE | 2019-05-15 07:00 | NUR ---
RECEIVED AM REPORT FROM NURSE, MORNING ROUNDS DONE. PT IS RESTING COMFORTABLY IN BED, NO S/S OF DISTRESS. PT RESPONDS TO VERBAL STIMULI. CALL LIGHT WITHIN REACH, SIDE RAILS UP. BED ALARM IS ACTIVE
--- NOTE | 2019-05-15 07:06 | NUR ---
REPORT GIVEN TO DAY NURSE. PATIENT IS RESTING COMFORTABLY IN BED. BED IS IN LOWEST POSITION AND CALL VINCENT IS WITHIN REACH.
[2019-05-15 08:15] VITALS: BP 137/76
[2019-05-15] MEDS: GABAPENTIN 300 MG CAP PO SCH ×2 (09:08→15:02)
[2019-05-15] MEDS: PANTOPRAZOLE SOD 40 MG TABEC PO SCH (09:08)
[2019-05-15 09:11] VITALS: BP 137/76
[2019-05-15 12:00] VITALS: BP 115/74
--- NOTE | 2019-05-15 12:31 | NUR ---
EDUCATED ABOUT IMM, SIGNED, FILED IN CHART, WITH COPY LEFT WITH FAMILY AT BEDSIDE.
--- NOTE | 2019-05-15 14:44 | NUR ---
PT AND SON SPOKE WITH ME ABOUT CHOICE FOR [facility], PT STATES HE HAS BEEN THERE BEFORE.
[2019-05-15 16:00] VITALS: BP 133/75
--- NOTE | 2019-05-15 16:49 | NUR ---
SPOKE WITH SON AND PATIENT ABOUT NOT BEING ABLE TO MEET CRITERIA FOR SNF, PT WALKED OVER 300 FEET, INFORMED THAT PT WILL BE DISCHARGED WITH HOME HEALTH TO BE REINSTATED AND THE PROVIDER CARE WE SPOKE ABOUT PREVIOUSLY, SON AGREED.
[2019-05-15] MEDS ORDERED: AZITHROMYCIN250 MG PO (17:53)
--- NOTE | 2019-05-16 06:12 | Discharge Summary ---
HISTORY: Mr. Polanco is a very elderly 83-year-old man, who presented to the emergency room with a complaint of weakness and falling to the floor. HOSPITAL COURSE: The ER doctor's initial evaluation suggests he might have bronchitis or pneumonia as his white cell count was mildly elevated at 13.2. He was given broad-spectrum antibiotics and IV fluids. His drug screen was positive for benzodiazepines and narcotics. He has a long-term diagnosis of ankylosing spondylitis and uses various pain medicines at home. Of note is that he had a previous hospitalization in December of 2018, to [facility] for falling on the floor with rhabdomyolysis with narcotic overdose. Today's white cell count is normal and he is discharged home to take Zithromax Z-Davis for possible bronchitis pneumonia. He will follow up with Dr. Edwards on a regular basis and will consider a residential care in discussion with family. MD JENNIFER Delgado/PARISH /[id number] cc: David Edwards
== END 2019-05-15 18:35 | disposition home or self-care (01) ==
LOC: ER 23:42 → ERHOLD 05-14 02:17 → INTOOBSV 05-14 02:17 → MED/SURG2 05-14 15:44
PROVIDERS: ADMIT Internal Medicine Cardiovascular Disease; ATTEND Internal Medicine Cardiovascular Disease
DX: R53.1 Weakness (principal); L05.91 Pilonidal cyst without abscess; M45.2 Ankylosing spondylitis of cervical region; R42 Dizziness and giddiness; W06.XXXA Fall from bed, initial encounter; Y93.89 Activity, other specified; Y92.013 Bedroom of single-family (private) house as the place of occurrence of the external cause; Z96.652 Presence of left artificial knee joint; Z82.49 Family history of ischemic heart disease and other diseases of the circulatory system; Z79.891 Long term (current) use of opiate analgesic
CPT/HCPCS: 36415 ×3; 70450; 71045; 72125; 73521; 80053 ×2; 80307; 81001; 82550 ×2; 82553 ×2; 82948 ×2; 83605; 84484 ×2; 85025 ×2; 87040; 87086; 93005; 94640 ×4; 97116; 97161; 99285; G0378 ×2; J0456 ×2; J0696 ×2; J7030 ×2; S0164 ×2

== ENCOUNTER 2020-03-16 12:31 | Emergency (ER) | payer MEDICARE ==
[~2020-03-16] VITALS: Ht 177.8 cm; Wt 95.3 kg
[~2020-03-16 12:31] MED LIST changes: +AZITHROMYCIN250 MG PO; +PANTOPRAZOLE SO40 MG PO; +ROPINIROLE HCL0.5 MG PO
--- NOTE | 2020-03-16 12:57 | Emergency Department Note ---
History of Present Illnes History of Present Illness Chief Complaint: General Medicine Complaints History of Present Illness This is a 84 year old male . 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 Arrival Mode: [facility] DIRECTOR: See EMS Report Computer Analyst Required: No Onset (how long ago): day(s) (4) Location: NAUSEA, ABD Quality: NAUSEA Radiation: Reports non-radiation Severity: moderate Onset quality: gradual Timing of current episode: intermittent Progression: waxing and waning Chronicity: new Context: Denies recent illness Relieving factors: none Exacerbating factors: none Associated symptoms: Reports denies other symptoms Treatments prior to arrival: none (PT DID NOT GET ZOFRAN ODT FILLED YET) Past Medical/Family History Physician Review I have reviewed the patient's past medical and family history. Any updates have been documented here. Past Medical History Recent Fever: No Clinical Suspicion of Infectio: No New/Unexplained Change in Ment: No Past Medical History: A-Fib, Cancer Other Medical History: VERTIGO ABNORMAL HEART RATE RLS Past Surgical History: Cholecysctectomy, Knee Replacement Other Surgery: LEFT KNEE REPLACEMENT HERNIA REPAIR PILONIDAL CYST REMOVAL Social History Smoking Cessation: Never Smoker Counseling Performed: No Alcohol Use: None Any Illegal Drug Use: No TB Exposure/Symptoms: No Physically hurt or threatened: No Family History Family history of heart diseas: No Other Last Tetanus: UTD Any Pre-Existing Lines (PICC,: No Review of Systems Review of Systems Constitutional: Reports no symptoms EENTM: Reports no symptoms Cardiovascular: Reports no symptoms Respiratory: Reports no symptoms Gastrointestinal: Reports diarrhea (1 EPISODE), Reports nausea; Denies vomiting Genitourinary: Reports no symptoms Musculoskeletal: Reports no symptoms Integumentary: Reports no symptoms Neurological: Reports no symptoms Psychological: Reports no symptoms Endocrine: Reports no symptoms Hematological/Lymphatic: Reports no symptoms Physical Exam Related Data Allergies: Coded Allergies: latex (Verified Allergy, Unknown, RASH, 06/28/17) Triage Vital Signs Vital Signs Date Time Temp Pulse Resp B/P (MAP) Pulse Ox O2 Delivery O2 Flow Rate FiO2 03/16/20 12:33 98.7 72 18 120/80 96 Physical Exam CONSTITUTIONAL Constitutional: Present well-developed, Present well-nourished HENT HENT: Present normocephalic, Present atraumatic, Present oropharynx clear/moist, Present nose normal HENT L/R: Present left ext ear normal, Present right ext ear normal EYES Eyes: Reports PERRL, Reports conjunctivae normal NECK Neck: Present ROM normal PULMONARY Pulmonary: Present effort normal, Present breath sounds normal CARDIOVASCULAR Cardiovascular: Present regular rhythm, Present heart sounds normal, Present capillary refill normal, Present normal rate GASTROINTESTINAL Abdominal: Present soft, Present nontender, Present bowel sounds normal GENITOURINARY Genitourinary: Present exam deferred SKIN Skin: Present warm, Present dry MUSCULOSKELETAL Musculoskeletal: Present ROM normal NEUROLOGICAL Neurological: Present alert, Present oriented x 3, Present no gross motor or sensory deficits PSYCHOLOGICAL Psychological: Present mood/affect normal, Present judgement normal Results Laboratory Laboratory comments LABS NORMAL 3 DAYS AGO, DIDN'T GET ZOFRAN RX FILLED Procedures 12 Lead ECG Interpretation ECG Interpretation : ECG: ECG 1 Date: Mar 16, 2020 Time: 12:41 Rhythm: sinus rhythm Rate: normal (73) QRS axis: normal ST segments normal: Yes T waves normal: Yes Clinical Impression: normal ECG Assessment & Plan Medical Decision Making MDM PT HERE AGAIN WITH NAUSEA, NORMAL PHYSICAL EXAM - DC HOME Reassessment Reassessment DC HOME, PT HAS ZOFRAN ODT RX - NEEDS TO GET IT FILLED Assessment & Plan Final Impression: (1) Nausea Depart Disposition: HOME, SELF-CARE Last Vital Signs Date Time Temp Pulse Resp B/P (MAP) Pulse Ox O2 Delivery O2 Flow Rate FiO2 03/16/20 12:33 98.7 72 18 120/80 96 Home Meds Reported Medications Azithromycin (Z-SHERRON) 250 Mg Tablet, 250 MG PO UD, #1 UDPKT Z-Pack 05/15/19 Pantoprazole Sodium* (PROTONIX) 40 Mg Tablet.dr, 40 MG PO DAILY 05/14/19 Atenolol (ATENOLOL) 50 Mg Tablet, 50 MG PO DAILY 05/09/17 Medications in the ED Ondansetron HCl 4 mg ONCE ONCE PO ; Start 03/16/20 at 13:00; Stop 03/16/20 at 13:01; Status UNV PER AU MD Mar 16, 2020 12:57
[2020-03-16] MEDS ORDERED: ONDANSETRON HCL 4 MG ORAL DISINTEGRATING TAB PO ONE (13:00)
[2020-03-16 13:38] VITALS: BP 115/69
--- NOTE | 2020-03-16 14:41 | NUR ---
Patient awaiting for EMS to pick him up and take him home. Spoke with patient's son to inform him that patient would be transported home via ems. Also informed son that patient would be sent home with a prescription for nausea medication that would need to be filled at a pharmacy patient son verblalized understanding.
== END 2020-03-16 15:50 | disposition home or self-care (01) ==
LOC: ER 13:53
DX: R11.0 Nausea (principal); I48.91 Unspecified atrial fibrillation
CPT/HCPCS: 93005; 99284; Q0162

== ENCOUNTER 2020-04-01 09:57 | Inpatient (IN) | payer MEDICARE, OTHER ==
[~2020-04-01] VITALS: Ht 177.8 cm; Wt 95.3 kg
[2020-04-01] MEDS ORDERED: SODIUM CHLORIDE 0.9% 1000ML 1,000 ML IV STA (09:59)
[2020-04-01] MEDS ORDERED: ACETAMINOPHEN 325 MG TAB PO STA (09:59)
[2020-04-01] MEDS ORDERED: ASPIRIN 81 MG CHEW TAB PO ONE ×2 (10:00→10:45)
[2020-04-01] MEDS ORDERED: CEFTRIAXONE SOD 1 GM/NS 50 ML 50 ML IV ONE (10:00)
--- NOTE | 2020-04-01 10:24 | Emergency Department Note ---
History of Present Illnes History of Present Illness Chief Complaint: General Medicine Complaints History of Present Illness This is a 84 year old male . 84 Y/O MALE PRESENTS TO ED VIA EMS FOR C/O GENERALIZED WEAKNESS AND FALL TO KNEES WHEN ATTEMPTING TO GET OUT OF RECLINER. PT A&OX3, EMS NOTED HE WAS FEBRILE UPON TRANSPORT. PT DENIES COUGH OR SOB. NOTED O2 SATS 94% ON RA. PT IN NO ACUTE DISTRESS. 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 Onset (how long ago): day(s) (1) Radiation: Denies non-radiation, Denies back, Denies neck, Denies extremity, Denies abdomen, Denies periumbilical, Denies flank, Denies proximal, Denies distal, Denies other Onset quality: sudden Duration (how long): day(s) (1) Progression: unchanged Context: Denies recent illness, Denies recent surgery, Denies recent immobilization, Denies recent travel, Denies trauma/injury, Denies new medications, Denies hx of DVT/PE, Denies non-compliance w/ medications, Denies other Relieving factors: none Exacerbating factors: none Associated symptoms: Denies denies other symptoms, Denies confusion, Denies chest pain, Denies cough, Denies diaphoresis, Denies fever/chills, Denies headaches, Denies loss of appetite, Denies malaise, Denies nausea/vomiting, Denies rash, Denies seizure, Denies shortness of breath, Denies syncope, Denies weakness, Denies other Treatments prior to arrival: none Past Medical/Family History Physician Review I have reviewed the patient's past medical and family history. Any updates have been documented here. Past Medical History Recent Fever: Yes Clinical Suspicion of Infectio: Yes New/Unexplained Change in Ment: No Past Medical History: A-Fib, Cancer Other Medical History: VERTIGO ABNORMAL HEART RATE RLS Past Surgical History: Cholecysctectomy, Knee Replacement Other Surgery: LEFT KNEE REPLACEMENT HERNIA REPAIR PILONIDAL CYST REMOVAL Social History Smoking Cessation: Never Smoker Alcohol Use: None Any Illegal Drug Use: No TB Exposure/Symptoms: No Physically hurt or threatened: No Family History Family history of heart diseas: No Other Last Tetanus: UTD Any Pre-Existing Lines (PICC,: No Review of Systems Review of Systems Constitutional: Reports no symptoms, Reports fever, Reports weakness EENTM: Reports no symptoms Cardiovascular: Reports no symptoms Respiratory: Reports no symptoms Gastrointestinal: Reports no symptoms Genitourinary: Reports no symptoms Musculoskeletal: Reports no symptoms Integumentary: Reports no symptoms Neurological: Reports no symptoms Psychological: Reports no symptoms Endocrine: Reports no symptoms Hematological/Lymphatic: Reports no symptoms Physical Exam Related Data Allergies: Coded Allergies: latex (Verified Allergy, Unknown, RASH, 06/28/17) Triage Vital Signs Vital Signs Date Time Temp Pulse Resp B/P (MAP) Pulse Ox O2 Delivery O2 Flow Rate FiO2 04/01/20 10:00 100.1 83 18 119/65 94 Room Air Vital signs reviewed: Yes Physical Exam CONSTITUTIONAL Constitutional: Present well-developed, Present well-nourished HENT HENT: Present normocephalic, Present atraumatic, Present oropharynx clear/moist, Present nose normal HENT L/R: Present left ext ear normal, Present right ext ear normal EYES Eyes: Reports PERRL, Reports conjunctivae normal NECK Neck: Present ROM normal PULMONARY Pulmonary: Present effort normal, Present breath sounds normal CARDIOVASCULAR Cardiovascular: Present regular rhythm, Present heart sounds normal, Present capillary refill normal, Present normal rate GASTROINTESTINAL Abdominal: Present soft, Present nontender, Present bowel sounds normal GENITOURINARY Genitourinary: Present exam deferred SKIN Skin: Present warm, Present dry MUSCULOSKELETAL Musculoskeletal: Present ROM normal NEUROLOGICAL Neurological: Present alert, Present oriented x 3, Present no gross motor or sensory deficits PSYCHOLOGICAL Psychological: Present mood/affect normal, Present judgement normal Results Laboratory Laboratory Laboratory Tests Test 04/01/20 10:15 White Blood Count 11.42 x10e3/uL (4.8-10.8) Red Blood Count 4.24 x10e6/uL (4.3-5.7) Hemoglobin 12.6 g/dL (14.0-18.0) Hematocrit 39.1 % (38.2-49.6) Mean Corpuscular Volume 92.2 fL (81-99) Mean Corpuscular Hemoglobin 29.7 pg (28-32) Mean Corpuscular Hemoglobin Concent 32.2 g/dL (31-35) Red Cell Distribution Width 13.3 % (11.7-14.4) Platelet Count 181 x10e3/uL (140-360) Neutrophils (%) (Auto) 72.5 % (38.7-80.0) Lymphocytes (%) (Auto) 14.1 % (18.0-39.1) Monocytes (%) (Auto) 11.6 % (4.4-11.3) Eosinophils (%) (Auto) 0.3 % (0.0-6.0) Basophils (%) (Auto) 0.5 % (0.0-1.0) Neutrophils # (Auto) 8.3 (2.1-6.9) Lymphocytes # (Auto) 1.6 (1.0-3.2) Monocytes # (Auto) 1.3 (0.2-0.8) Eosinophils # (Auto) 0.0 (0.0-0.4) Basophils # (Auto) 0.1 (0.0-0.1) Absolute Immature Granulocyte (auto 0.11 x10e3/uL (0-0.1) Prothrombin Time 14.3 seconds (11.9-14.5) Prothromb Time International Ratio 1.05 Activated Partial Thromboplast Time 30.2 seconds (23.8-35.5) Sodium Level 139 mmol/L (136-145) Potassium Level 4.2 mmol/L (3.5-5.1) Chloride Level 106 mmol/L (98-107) Carbon Dioxide Level 26 mmol/L (22-29) Anion Gap 11.2 mmol/L (8-16) Blood Urea Nitrogen 13 mg/dL (7-26) Creatinine 1.24 mg/dL (0.72-1.25) Estimat Glomerular Filtration Rate 55 ML/MIN (60-) BUN/Creatinine Ratio 10 (6-25) Glucose Level 90 mg/dL (74-118) Lactic Acid Level 1.5 mmol/L (0.5-2.0) Calcium Level 8.7 mg/dL (8.4-10.2) Total Bilirubin 0.9 mg/dL (0.2-1.2) Aspartate Amino Transf (AST/SGOT) 17 IU/L (5-34) Alanine Aminotransferase (ALT/SGPT) 12 IU/L (0-55) Alkaline Phosphatase 57 IU/L (40-150) Creatine Kinase 57 IU/L (30-200) Creatine Kinase MB 1.10 ng/mL (0-5.0) Troponin I 0.003 ng/mL (0-0.300) B-Type Natriuretic Peptide 32.1 pg/mL (0-100) Total Protein 6.7 g/dL (6.5-8.1) Albumin 3.3 g/dL (3.5-5.0) Globulin 3.4 g/dL (2.3-3.5) Albumin/Globulin Ratio 1.0 (0.8-2.0) Thyroid Stimulating Hormone (TSH) 1.327 uIU/mL (0.350-4.940) Laboratory Tests Test 04/01/20 10:15 White Blood Count 11.42 x10e3/uL (4.8-10.8) Red Blood Count 4.24 x10e6/uL (4.3-5.7) Hemoglobin 12.6 g/dL (14.0-18.0) Hematocrit 39.1 % (38.2-49.6) Mean Corpuscular Volume 92.2 fL (81-99) Mean Corpuscular Hemoglobin 29.7 pg (28-32) Mean Corpuscular Hemoglobin Concent 32.2 g/dL (31-35) Red Cell Distribution Width 13.3 % (11.7-14.4) Platelet Count 181 x10e3/uL (140-360) Neutrophils (%) (Auto) 72.5 % (38.7-80.0) Lymphocytes (%) (Auto) 14.1 % (18.0-39.1) Monocytes (%) (Auto) 11.6 % (4.4-11.3) Eosinophils (%) (Auto) 0.3 % (0.0-6.0) Basophils (%) (Auto) 0.5 % (0.0-1.0) Neutrophils # (Auto) 8.3 (2.1-6.9) Lymphocytes # (Auto) 1.6 (1.0-3.2) Monocytes # (Auto) 1.3 (0.2-0.8) Eosinophils # (Auto) 0.0 (0.0-0.4) Basophils # (Auto) 0.1 (0.0-0.1) Absolute Immature Granulocyte (auto 0.11 x10e3/uL (0-0.1) Prothrombin Time 14.3 seconds (11.9-14.5) Prothromb Time International Ratio 1.05 Activated Partial Thromboplast Time 30.2 seconds (23.8-35.5) Sodium Level 139 mmol/L (136-145) Potassium Level 4.2 mmol/L (3.5-5.1) Chloride Level 106 mmol/L (98-107) Carbon Dioxide Level 26 mmol/L (22-29) Anion Gap 11.2 mmol/L (8-16) Blood Urea Nitrogen 13 mg/dL (7-26) Creatinine 1.24 mg/dL (0.72-1.25) Estimat Glomerular Filtration Rate 55 ML/MIN (60-) BUN/Creatinine Ratio 10 (6-25) Glucose Level 90 mg/dL (74-118) Lactic Acid Level 1.5 mmol/L (0.5-2.0) Calcium Level 8.7 mg/dL (8.4-10.2) Total Bilirubin 0.9 mg/dL (0.2-1.2) Aspartate Amino Transf (AST/SGOT) 17 IU/L (5-34) Alanine Aminotransferase (ALT/SGPT) 12 IU/L (0-55) Alkaline Phosphatase 57 IU/L (40-150) Creatine Kinase 57 IU/L (30-200) Creatine Kinase MB 1.10 ng/mL (0-5.0) Troponin I 0.003 ng/mL (0-0.300) B-Type Natriuretic Peptide 32.1 pg/mL (0-100) Total Protein 6.7 g/dL (6.5-8.1) Albumin 3.3 g/dL (3.5-5.0) Globulin 3.4 g/dL (2.3-3.5) Albumin/Globulin Ratio 1.0 (0.8-2.0) Thyroid Stimulating Hormone (TSH) 1.327 uIU/mL (0.350-4.940) Imaging Impressions [place] [address] Patient Name: NOEMY ARGUETA MR #: [id number] : 1935 Age/Sex: 84/M Req #: [id number] Adm Physician: Ordered by: COLLIN BRANNON, ANITHA BRANNON Report #: [id number] Location: ER Room/Bed: Procedure: [id number] DX/CHEST SINGLE (PORTABLE) Exam Date: 04/01/20 Exam Time: 1025 REPORT STATUS: Signed EXAMINATION: CHEST SINGLE (PORTABLE) INDICATION: ^Y ^ERMD ORDER ^[id number] ^1025 ^Y COMPARISON: 03/13/2020 FINDINGS: AP view TUBES and LINES: None. LUNGS: Lungs are well inflated. Bandlike reticular opacities in both lung bases, left greater than right, increased. PLEURA: No pleural effusion or pneumothorax. HEART AND MEDIASTINUM: The cardiac silhouette is within normal limits. Tortuous thoracic aortic aorta with possible ectasia of the ascending thoracic segment remains unchanged. BONES AND SOFT TISSUES: Mild deformity of the posterior right fifth and sixth ribs is unchanged. Soft tissues are unremarkable. UPPER ABDOMEN: No free air under the diaphragm. IMPRESSION: Worsening bandlike reticular opacities in both lung bases since 03/13/2020 may reflect interval aspiration or developing multifocal pneumonia. Signed by: Dr. Sandro Gonzalez M.D. on 04/01/2020 11:19 AM Dictated By: SANDRO GONZALEZ MD 1119 Transcribed By: APOORVA on 04/01/20 1119 COPY TO: ANITHA POLANCO~ [place] [address] Patient Name: NOEMY ARGUETA MR #: [id number] : 1935 Age/Sex: 84/M Req #: [id number] Adm Physician: Ordered by: ANITHA POLANCO MD, MD Report #: [id number] Location: ER Room/Bed: Procedure: [id number] CT/CT BRAIN WO Exam Date: 04/01/20 Exam Time: 1050 REPORT STATUS: Signed EXAMINATION: Head CT HISTORY: Weakness, fever, status post fall. COMPARISON: Head CT 05/14/2019 TECHNIQUE: Helical axial images of the head were obtained. Reformatted coronal and sagittal images from the axial data. Dose modulation, iterative reconstruction, and/or weight based adjustment of the mA/kV was utilized to reduce the radiation dose to as low as reasonably achievable. Image quality: Motion/streaking artifact limits the evaluation of the skull base and posterior cranial fossa. FINDINGS: Parenchyma: 1. Persistent mild pulmonary chronic microvascular ischemic changes. 2. No mass or hemorrhage. No CT evidence of acute territorial vascular insult. Extra-axial spaces:No abnormal density. No extra-axial fluid collections Brain volume: Normal for age. Ventricles: No hydrocephalus or displacement. Arteries: No density suggestive of thrombus. Dural sinuses: No abnormal density. Foramen magnum: No mass, Chiari malformation, or basilar invagination. Sella: Enlarged, partially empty, mostly CSF filled. Paranasal/mastoid sinuses: Imaged portions unremarkable. Skull/Scalp: No lytic or blastic lesions. No fractures. IMPRESSION: 1. No acute intracranial abnormalities. 2. Persistent mild white matter chronic microvascular ischemic changes. Signed by: Dr. Belen Stearns M.D. on 04/01/2020 11:26 AM Dictated By: BELEN STEARNS MD 1126 Transcribed By: APOORVA on 04/01/20 1126 COPY TO: ANITHA POLANCO~ Procedures 12 Lead ECG Interpretation ECG Interpretation : ECG: ECG 1 Electric Range Assembler: Interpreted by ED physician Date: Apr 01, 2020 Time: 10:09 Prior ECG tracings: reviewed Rhythm: sinus rhythm Rate: normal BPM: 81 QRS axis: normal ST segments normal: Yes T waves normal: Yes Clinical Impression: normal ECG Assessment & Plan Medical Decision Making MDM 84 Y/O MALE PRESENTS TO ED VIA EMS FOR C/O GENERALIZED WEAKNESS AND FALL TO KNEES WHEN ATTEMPTING TO GET OUT OF RECLINER. PT A&OX3, EMS NOTED HE WAS FEBRILE UPON TRANSPORT. PT DENIES COUGH OR SOB. NOTED O2 SATS 94% ON RA. PT IN NO ACUTE DISTRESS. ordered lab rad d/d near syncope / stroke / tia / acs / electrolyte imbalance / pne Reassessment Reassessment discussed lab rad results plan of care and need for admit spoke w dr carrera will admit Assessment & Plan Final Impression: (1) Pneumonia (2) Generalized weakness (3) Near syncope (4) Fever Depart Disposition: ADMITTED Last Vital Signs Date Time Temp Pulse Resp B/P (MAP) Pulse Ox O2 Delivery O2 Flow Rate FiO2 04/01/20 10:00 100.1 83 18 119/65 94 Room Air Home Meds Reported Medications Azithromycin (Z-SHERRON) 250 Mg Tablet, 250 MG PO UD, #1 UDPKT Z-Pack 05/15/19 Pantoprazole Sodium* (PROTONIX) 40 Mg Tablet., 40 MG PO DAILY 05/14/19 Atenolol (ATENOLOL) 50 Mg Tablet, 50 MG PO DAILY 05/09/17 Medications in the ED Acetaminophen 975 mg ONCE STAT PO ; Start 04/01/20 at 09:59; Stop 04/01/20 at 10:11; Status DC Sodium Chloride 1,000 ml @ 0 mls/hr Q0M STAT IV ; Start 04/01/20 at 09:59; Stop 04/01/20 at 10:03; Status DC Aspirin 81 mg PRN ONCE PO ; Start 04/01/20 at 10:00; Stop 04/01/20 at 10:11; Status DC Ceftriaxone Sodium 50 ml @ 100 mls/hr ONCE ONCE IV ; Start 04/01/20 at 10:00; Stop 04/01/20 at 10:29 ANITHA POLANCO Apr 01, 2020 10:23
[2020-04-01 10:44] LABS: BASOPHILS # (AUTO) 0.1 (0.0-0.1); BASOPHILS % 0.5 % (0.0-1.0); EOSINOPHILS % 0.3 % (0.0-6.0); HEMATOCRIT 39.1 % (38.2-49.6); HEMOGLOBIN 12.6 g/dL (14.0-18.0); LYMPHOCYTES # (AUTO) 1.6 (1.0-3.2); LYMPHOCYTES % 14.1 % (18.0-39.1); MEAN CORPUSCULAR HEMOGLOBIN 29.7 pg (28-32); MEAN CORPUSCULAR HGB CONC 32.2 g/dL (31-35); MEAN CORPUSCULAR VOLUME 92.2 fL (81-99); MONOCYTES # (AUTO) 1.3 (0.2-0.8); MONOCYTES % 11.6 % (4.4-11.3); NEUTROPHILS # (AUTO) 8.3 (2.1-6.9); NEUTROPHILS % 72.5 % (38.7-80.0); PLATELET COUNT 181 x10e3/uL (140-360); RED BLOOD COUNT 4.24 x10e6/uL (4.3-5.7); RED CELL DISTRIBUTION WIDTH 13.3 % (11.7-14.4)
[2020-04-01] MEDS ORDERED: ONDANSETRON HCL INJ 2MG/ML 2ML 2 MG/ML VIAL IV PRN (10:45)
[2020-04-01] MEDS ORDERED: SODIUM CHLORIDE 0.9% 1000ML 1,000 ML IV SCH (10:45)
[2020-04-01 11:07] LABS: INR 1.05; PARTIAL THROMBOPLASTIN TIME 30.2 seconds (23.8-35.5); PROTHROMBIN TIME 14.3 seconds (11.9-14.5)
[2020-04-01 11:08] LABS: ALBUMIN 3.3 g/dL (3.5-5.0); ANION GAP 11.2 mmol/L (8-16); CALCIUM 8.7 mg/dL (8.4-10.2); CREATININE, SERUM 1.24 mg/dL (0.72-1.25); POTASSIUM 4.2 mmol/L (3.5-5.1)
[2020-04-01 11:12] LABS: B-TYPE NATRIURETIC PEPTIDE2 32.1 pg/mL (0-100)
--- NOTE | 2020-04-01 11:22 | Diagnostic Imaging Report ---
EXAMINATION: CHEST SINGLE (PORTABLE) INDICATION: ^Y ^ERMD ORDER ^[id number] ^1025 ^Y COMPARISON: 03/13/2020 FINDINGS: AP view TUBES and LINES: None. LUNGS: Lungs are well inflated. Bandlike reticular opacities in both lung bases, left greater than right, increased. PLEURA: No pleural effusion or pneumothorax. HEART AND MEDIASTINUM: The cardiac silhouette is within normal limits. Tortuous thoracic aortic aorta with possible ectasia of the ascending thoracic segment remains unchanged. BONES AND SOFT TISSUES: Mild deformity of the posterior right fifth and sixth ribs is unchanged. Soft tissues are unremarkable. UPPER ABDOMEN: No free air under the diaphragm. IMPRESSION: Worsening bandlike reticular opacities in both lung bases since 03/13/2020 may reflect interval aspiration or developing multifocal pneumonia. Signed by: Dr. Kirsty Mccarthy M.D. on 04/01/2020 11:19 AM
[2020-04-01 11:28] LABS: CREATINE KINASE MB 1.1 ng/mL (0-5.0); THYROID STIMULATING HORMONE 1.327 uIU/mL (0.350-4.940)
--- NOTE | 2020-04-01 11:29 | Diagnostic Imaging Report ---
EXAMINATION: Head CT HISTORY: Weakness, fever, status post fall. COMPARISON: Head CT 05/14/2019 TECHNIQUE: Helical axial images of the head were obtained. Reformatted coronal and sagittal images from the axial data. Dose modulation, iterative reconstruction, and/or weight based adjustment of the mA/kV was utilized to reduce the radiation dose to as low as reasonably achievable. Image quality: Motion/streaking artifact limits the evaluation of the skull base and posterior cranial fossa. FINDINGS: Parenchyma: 1. Persistent mild pulmonary chronic microvascular ischemic changes. 2. No mass or hemorrhage. No CT evidence of acute territorial vascular insult. Extra-axial spaces:No abnormal density. No extra-axial fluid collections Brain volume: Normal for age. Ventricles: No hydrocephalus or displacement. Arteries: No density suggestive of thrombus. Dural sinuses: No abnormal density. Foramen magnum: No mass, Chiari malformation, or basilar invagination. Sella: Enlarged, partially empty, mostly CSF filled. Paranasal/mastoid sinuses: Imaged portions unremarkable. Skull/Scalp: No lytic or blastic lesions. No fractures. IMPRESSION: 1. No acute intracranial abnormalities. 2. Persistent mild white matter chronic microvascular ischemic changes. Signed by: Dr. Belen Stearns M.D. on 04/01/2020 11:26 AM
[2020-04-01] MEDS ORDERED: CEFTRIAXONE SOD 1 GM/NS 50 ML 50 ML IV SCH (11:30)
[2020-04-01] MEDS ORDERED: PIPER-TAZ 3.375 GM 50 ML IV ONE (14:15)
[2020-04-01] MEDS ORDERED: ROPINIROLE HCL 1 MG TAB PO STA (16:42)
--- NOTE | 2020-04-01 19:25 | History and Physical ---
CHIEF COMPLAINT: Increasing shortness of breath, generalized weakness, multiple falls, fever, oxygen saturation at 94%, although the patient having increasing shortness of breath. SUMMARY: The patient is an 84-year-old male, presented to the emergency room with increase in generalized weakness and multiple falls at home. The patient apparently lives by himself. He is very hard of hearing. His history is also very unreliable as well. The patient seemed stable. His serology COVID-19 is pending. However, his chest x-ray today showed that he has worsening bandlike reticular opacity in both lung bases, 03/13/2020 may reflect interval aspiration or developing multi-focal pneumonia. The patient's CT scan of the brain with chronic microvascular ischemic changes. The patient is otherwise stable. He is on isolation now. Pending for COVID-19 test, the patient will be treated like he has COVID-19 and COVID-[address] PAST MEDICAL HISTORY: Chronic pain syndrome. Atrial fibrillation. Chronic vertigo. Osteoarthritis. PAST SURGICAL HISTORY: Including cholecystectomy, left knee replacement, hernia repair, pilonidal cyst removal. ALLERGIES: ALLERGIC TO LATEX. HOME MEDICATIONS: Atenolol, azithromycin, and pantoprazole. PHYSICAL EXAMINATION: VITAL SIGNS: Temperature is 100.1, blood pressure 102/53, pulse rate 72, respirations 22. GENERAL: The patient is not in acute distress. He is awake. He is very hard of hearing. HEENT: Normocephalic, atraumatic. Anicteric. Neck: Supple. PULMONARY: Diminished breath sounds bilaterally with coarses and rhonchi. CARDIOVASCULAR: S1, S2. Regular rate and rhythm. ABDOMEN: Soft, non-distention. EXTREMITIES: No gross edema or cyanosis. NEUROLOGIC: The patient is very hard of hearing, but no focal deficit. LABORATORY DATA: WBC is 11.4, hemoglobin 12.6, hematocrit 39, and platelets 21. Chemistry; sodium 139, potassium 4.2, chloride 106, bicarb 26, BUN 13, creatinine 1.2, glucose is 90. Serology; COVID-19 PCR is still pending. Chest x-ray showed possible multifocal pneumonia, also possible worsening bandlike reticular opacity in both lung bases, could be secondary to aspiration. ASSESSMENT: 1. Rule out coronavirus disease-19 pneumonia/infection. 2. Possible aspiration pneumonia with multifocal pneumonia. 3. Fever with slight increase in WBC. 4. Very hard of hearing. 5. Baseline paroxysmal atrial fibrillation. 6. Recurrent fall at home, lives by himself, progressive debility. PLAN: COVID-19 treatment protocol until test is negative. Continue treatment like the patient has aspiration pneumonia. Inhaler as needed. Continue with current management. Consultation with Pulmonology and Infectious Disease. PT OT. We will monitor the patient closely and adjust his medication. Oxygen support as needed. MD ANKIT Hollis/PARISH /[id number]
[2020-04-01] MEDS ORDERED: AZITHROMYCIN 500MG/NS 250 ML 250 ML IV SCH (19:30)
[2020-04-01 21:45] LABS: CLARITY,URINE CLEAR (CLEAR); COLOR,URINE YELLOW (YELLOW)
[2020-04-01 21:46] LABS: BILIRUBIN,URINE NEGATIVE (NEGATIVE); KETONES,URINE NEGATIVE (NEGATIVE); LEUKOCYTE ESTERASE ,URINE NEGATIVE (NEGATIVE); NITRITE,URINE NEGATIVE (NEGATIVE); PROTEIN,URINE DIPSTICK NEGATIVE (NEGATIVE); URINE UROBILINOGEN 0.2 mg/dL (0.2 - 1)
[2020-04-01 21:57] LABS: EPITHELIAL CELLS,URINE RARE /LPF
[2020-04-01] MEDS: PIPER-TAZ 3.375 GM 50 ML IV SCH (22:25)
--- NOTE | 2020-04-02 02:20 | NUR ---
Patient was moved to ER-6 from ER-10 via stretcher.
--- NOTE | 2020-04-02 03:58 | NUR ---
Patient keep taking BP cuff no current vitals at this time. Pt complaining that he was being moved but went back to sleep.
--- NOTE | 2020-04-02 07:12 | Diagnostic Imaging Report ---
EXAMINATION: CHEST SINGLE (PORTABLE) INDICATION: ^Y ^HYPOXIA ^[id number] ^0510 ^Y COMPARISON: 04/01/2020 FINDINGS: AP view TUBES and LINES: None. LUNGS: Unchanged ill-defined bibasilar opacities. PLEURA: No pleural effusion or pneumothorax. HEART AND MEDIASTINUM: The cardiomediastinal silhouette is unchanged. BONES AND SOFT TISSUES: No acute osseous lesion. Soft tissues are unremarkable. UPPER ABDOMEN: No free air under the diaphragm. Elevated right hemidiaphragm. IMPRESSION: Stable exam. Unchanged bibasilar opacities which may represent pneumonia, atelectasis, and/or infection. Signed by: Omi Eubanks MD on 04/02/2020 7:08 AM
[2020-04-02 07:18] LABS: BASOPHILS % 0.6 % (0.0-1.0); EOSINOPHILS # (AUTO) 0.1 (0.0-0.4); EOSINOPHILS % 1.6 % (0.0-6.0); HEMATOCRIT 34.4 % (38.2-49.6); LYMPHOCYTES # (AUTO) 1.8 (1.0-3.2); LYMPHOCYTES % 26.2 % (18.0-39.1); MEAN CORPUSCULAR HEMOGLOBIN 29.6 pg (28-32); MEAN CORPUSCULAR VOLUME 92.7 fL (81-99); MONOCYTES # (AUTO) 0.9 (0.2-0.8); MONOCYTES % 13.5 % (4.4-11.3); NEUTROPHILS % 57.5 % (38.7-80.0); PLATELET COUNT 148 x10e3/uL (140-360); RED BLOOD COUNT 3.71 x10e6/uL (4.3-5.7); RED CELL DISTRIBUTION WIDTH 13.4 % (11.7-14.4)
[2020-04-02 07:45] LABS: ALANINE AMINOTRANSFERASE 11 IU/L (0-55); ALBUMIN 2.6 g/dL (3.5-5.0); ALBUMIN/GLOBULIN RATIO 0.9 (0.8-2.0); ALKALINE PHOSPHATASE 53 IU/L (40-150); BLOOD UREA NITROGEN 11 mg/dL (7-26); BUN/CREATININE RATIO 11 (6-25); CALCIUM 7.7 mg/dL (8.4-10.2); CARBON DIOXIDE 24 mmol/L (22-29); CHLORIDE 113 mmol/L (98-107); CREATININE, SERUM 0.97 mg/dL (0.72-1.25); EST GLOMERULAR FILTRATION RATE > 60 ML/MIN (60-); GLUCOSE 87 mg/dL (74-118); MAGNESIUM 1.8 MG/DL (1.3-2.1); SODIUM 144 mmol/L (136-145)
[2020-04-02] MEDS: PIPER-TAZ 3.375 GM 50 ML IV SCH ×2 (07:45→16:06)
--- NOTE | 2020-04-02 07:54 | NUR ---
helped pt sit up to eat breakfast. complained about bed, room, staff, care, dr's, dietary, food, nurses,
--- NOTE | 2020-04-02 08:54 | NUR ---
[facility] here seeing pt
--- NOTE | 2020-04-02 08:55 | NUR ---
daughter's phone eddie choudhury son lives in [place]. pt has cell with him.
[2020-04-02] MEDS ORDERED: PANTOPRAZOLE SOD 40 MG TABEC PO SCH (09:00)
[2020-04-02] MEDS ORDERED: ASPIRIN 81 MG ENTERIC COATED PO SCH (09:00)
--- NOTE | 2020-04-02 10:05 | NUR ---
[place] [phone] PER ORDER REQUEST TO DISCUSS PT DISCHARGING W HOME [facility]ALTH TODAY. CALL TO ER. SPOKE W ER STAFF. STATES PT'S NURSE WAS ROSARIO, BUT SHE WAS BUSY. CM TO FOLLOW UP.
--- NOTE | 2020-04-02 10:10 | NUR ---
pt states lost his wallet and phone. both wallet and phone found in bed with pt and re oriented pt to their status.
--- NOTE | 2020-04-02 11:12 | NUR ---
attempted report to oncoming nurse, unable at this time.
[2020-04-02] MEDS ORDERED: ONDANSETRON (11:39)
[2020-04-02] MEDS ORDERED: SMZ/TMP (11:39)
[2020-04-02] MEDS ORDERED: GABAPENTIN600 MG (11:39)
[2020-04-02] MEDS ORDERED: SPIRONOLACTONE25 MG (11:39)
[2020-04-02] MEDS ORDERED: ACETAMINOPHEN-118 ML (11:39)
[2020-04-02] MEDS ORDERED: CHLORDIAZEPOXID10 MG (11:39)
--- NOTE | 2020-04-02 12:04 | NUR ---
report to charge nurse noris rodriguez
--- NOTE | 2020-04-02 14:23 | NUR ---
CALL TO ER. SPOKE W ROSARIO Yu. SHE STATES SHE HAD SPOKE W THE PT'S DTR ABOUT THE PT'S DISPO. DISCUSSED PT DC'ING HOME TODAY W HOME HEALTH. DUE TO THE HOLIDAY; THE PT MAY NOT BE SEEN UNTIL SATURDAY NEXT WEEK. ROSARIO STATES THE PT NEEDED TO BE SEEN BY PHYSICAL THERAPY BEFORE DR. JACOBSEN MADE A DECISION. PT HAD NOT SEEN THE PT. ROSARIO SAID THE DTR STATED SHE THOUGHT HER FATHER WOULD DO BETTER IN A REHAB. WILL F/U AFTER SEEN BY PT.
--- NOTE | 2020-04-02 16:44 | Consultation ---
DATE OF CONSULTATION: HISTORY OF PRESENT ILLNESS: Mr. Polanco is currently in the emergency room. He is coming here because of shortness of breath. The patient is having multiple falls. The patient is an 84-year-old gentleman, comes in to the emergency room with weakness, not doing well. He had a fall apparently. He is very hard of hearing, but he is telling me that currently he is doing well. REVIEW OF SYSTEMS: HEENT: Negative. PULMONARY: Negative. CARDIAC: Negative. : Negative. PAST MEDICAL HISTORY: The patient does have history of chronic pain syndrome, atrial fibrillation, and vertigo. PAST SURGICAL HISTORY: 1. Cholecystectomy. 2. Left knee replacement. ALLERGIES: LATEX. SOCIAL HISTORY: Does not smoke, drug abuse or alcohol abuse. PHYSICAL EXAMINATION: GENERAL: He is currently alert, oriented. VITAL SIGNS: Stable. There is no fever. When he first came in, it is 101.1. HEENT: Not icteric. NECK: Supple. CHEST: Few crackles bilaterally. COR: S1-S2. No murmurs. ABDOMEN: Soft. Bowel sounds present. No tenderness. EXTREMITIES: No edema. SKIN: No rash. LABORATORY DATA: Reviewed. His chart reviewed. PHYSICAL EXAMINATION: GENERAL: Currently alert, oriented, does not seem acute distress. VITALS: Stable, currently afebrile. HEENT: He is not icteric. NECK: Supple. CHEST: Clear. ABDOMEN: Soft. IMPRESSION: Falls, currently he is doing well. I think we could discontinue his antibiotic. He may need PT/OT evaluation and perhaps safe discharge. Await further workup. We will observe him clinically. MD JOE Dubois/[place] /[id number]
--- NOTE | 2020-04-02 18:30 | NUR ---
PATIENT REPEATIVELY REMOVING MONITORING DEVICES AND THROWING THEM ON THE FLOOR OF ROOM. PATIENT PULLED IV OUT. IV REESTABLISHED IN LEFT FOREARM. WRAPPED WITH COBAN TO PREVENT ACCIDENTAL REMOVAL.
--- NOTE | 2020-04-02 19:30 | NUR ---
PATIENT REMOVING MEDICAL DEVICES. SEEMS CONFUSED TO WHY HE NEEDS TO KEEP BLOOD PRESSURE AND PULSE OXYMETRY ON.
--- NOTE | 2020-04-02 21:44 | NUR ---
Patient reevaluated bedside, respirations about 18-20, no evidence of tachypnea. Patient's oxygen saturation 100% even on exertion. Patient well-appearing. Patient admitted by Dr. Knott. Cardiac markers reviewed and unremarkable. Spoke with Dr. Rivera hospitalist. Patient wishes to be discharged home, patient well-appearing, informed of his coronavirus status is pending but he is clinically positive. Patient is well appearing to be discharged home, patient discharged home on Z-Davis and Decadron and encouraged proning methods. Patient stable and in good spirits at time of discharge.
--- NOTE | 2020-04-04 02:28 | Discharge Summary ---
HOSPITAL COURSE: The patient was discharged by Dr. Lisa Bhatt in the emergency room. The patient is an 84-year-old male, admitted to the hospital, but remained in the emergency room. The patient has presumed diagnosis with COVID-19. The patient has bilateral opacities in lower lobe area. The patient is started on treatment per COVID-19 protocol. Problem that he came in because he was unable to walk. The patient was pending for home health and physical therapy. He is only able to sit up in the bed. His saturations are 100% on room air. Discharge planning is in progress. Dr. Bhatt saw the patient because the patient was seen in emergency room and according to the evaluation by Dr. Bhatt, the patient was 100% on oxygen saturation. Dr. Bhatt want to send the patient home. Therefore, he called the family, the patient's daughter for discharge planning. The patient was subsequently discharged home on a Z-Davis and Decadron. The patient was discharged by Dr. Bhatt in the emergency room. MD ANKIT Hollis/[place] /[id number]
--- NOTE | 2020-04-07 14:34 | NUR ---
Pt called and was given their negative covid test result.
--- OUTSIDE RECORDS SUMMARY | 2020-04-29 05:28 | XMS REPORT | Continuity of Care Document ---
Author Author [facility] t Organization 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 Phone DAVID PORTER PCP AG JACOBSEN Attphys Unavailable Gerson AU Attphys Unavailable SHAW, Gerson OLIVA Attphys Unavailable ELMIRA HUGHES Attphys Unavailable TRACEE, PENI Attphys Unavailable ARZOLA, SOUHEIL Attphys Unavailable Gigi PRAKASH Attphys Unavailable AG JACOBSEN Admphys Unavailable SHAW, Gerson HAZEL Admphys Unavailable TRACEE, PENI Admphys Unavailable ARZOLA, SOUHEIL Admphys Unavailable Payers Payer Name Policy Type Policy Number Effective Date Expiration Date Benigno quijano [facility] [id number] 2018 00:00:00 [facility] Problems Condition Name Condition Details Condition Category Status Onset Date Resolution Date Last Treatment Date Treating Clinician Comments Source Closed fracture of one rib Closed fracture of one rib Problem Active 2018-02-22 00:00:00 [facility] (LUF/IZAIAH/SA) Arthralgia of bilateral temporomandibular joint Arthra lgia of bilateral temporomandibular joint Problem [facility] Arthralgia of right temporomandibular joint Arthralgia of right temporomandibular joint Problem Active [facility] Adverse effect of other drugs, medicaments and biologi emmy substances, sequela Adverse effect of other drugs, medicaments and biological substances, sequela Problem Active [facility] Acute suppurative otitis media without s pontaneous rupture of ear drum, right ear Acute suppurative otitis media without s pontaneous rupture of ear drum, right ear Problem [facility] Otorrhea, right ear Otorrhea, right ear Problem [facility] Acute serous otitis media, left ear Acute serous otitis media, l eft ear Problem [facility] Otalgia, right ear Otalgia, right ear Problem [facility] Other marginal perforations of tympanic membrane, righ t ear Other marginal perforations of tympanic membrane, right ear Problem [facility] Swelling, mass, lump in neck Swelling, mass, lump in neck Problem Active [facility] Hearing loss, Sensorineural - Asymmetrical Hearing los s, Sensorineural - Asymmetrical Problem Active [facility] Ankylosing spondylitis of unspecified sites in spine A nkylosing spondylitis of unspecified sites in spine Problem Active [facility] Aural vertigo, bilateral Aural vertigo, bilateral Problem [facility] Sinusitis - Chronic Sinusitis - Chronic Problem [facility] Allergic rhinitis Allergic rhinitis Problem Active [facility] Unsteadiness on feet Unsteadiness on feet Problem Active [facility] Postnasal drip Postnasal drip Problem Active [facility] Nausea Nausea Problem Active [facility] Hearing loss, Sensorineural - Bilateral Hearing loss, Sensor ineural - Bilateral Problem Active [facility] Dizziness Dizziness Problem Active [facility] Foreign body in esophagus Esophageal foreign body Problem Active [facility] Fever Fever Problem Active [facility] Weakness Generalized weakness Problem Active [facility] Pill esophagitis Pill esophagitis Problem Active [facility] Pneumonia Pneumonia Problem Active [facility] Knee pain, right Knee pain, right Active Problem 04/24/2020 Keegan Ingram Problem Active 2020-04-24 02:45:06 [facility] Ankylosing spondylitis of multiple sites in spine Ankylosing spondylitis of multiple sites in spine Active Problem 04/24/2020 Keegan Ingram Problem Active 2020-04-24 02:45:06 [facility] Long-term use of high-risk medication Long-term use of high-risk medication Active Problem 04/24/2020 Keegan Ingram Problem Active 2020-04-24 02:45:06 [facility] Vitamin D deficiency Kamila min D deficiency Active Problem 04/24/2020 Keegan Ingram Problem Active 2020-04-24 02:45:06 [facility] Nausea Naus ea Active Problem 04/24/2020 Keeganjona Ingram Problem Active 2020-04-24 02:45:06 John Cárdenas Abdominal pain Abdo tammy pain Active Problem 04/24/2020 Keegan Ingram Problem Active 2020-04-24 02:45:06 John Cárdenas Shoulder pain, right Shou lder pain, right Active Problem 04/24/2020 Keeganjona Ingram Problem Active 2020-04-24 02:45:06 John Cárdenas Neck mass Neck mass Active Problem 04/24/2020 Keegan Ingram Problem Active 2020-04-24 02:45:06 [facility] Dizziness Dizz iness Active Problem 04/24/2020 Keegan Ingram Problem Active 2020-04-24 02:45:06 [facility] 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 Active Problem 01/25/2018 Philippe Lryennifer Problem Active 2018-01-25 02:45:48 [facility] Bilateral lower extremity edema Bilateral lower extremity edema Active Problem 01/25/2018 Philippe Lroudi Problem Active 2018-01-25 02:45:48 [facility] Venous insufficiency Veno us insufficiency Active Diagnosis 03/07/2017 Philippe Radha Gibson Diagnosis Active 2017-03-07 02:45 :07 [facility] Essential hypertension Esse ntial hypertension Active Problem 01/25/2018 Philippe Finleyamanda Problem Active 16-01-28 02:45:48 [facility] Obesity (BMI 30.0-34.9) Obes ity (BMI 30.0-34.9) Active Problem 01/25/2018 Mohdixon Lroudi Problem Active 16-01-28 02:45:48 [facility] Osteoarthritis, unspecified osteoarthritis type, unspe cified site Osteoarthritis, unspecified osteoarthritis type, unspecified site Active Problem 01/25/2018 Mohdixon Finleydi Problem Active 16-01-28 02:45:48 [facility] Family history of abdominal aortic aneurysm (AAA) Family history of abdominal aortic aneurysm (AAA) Active Problem 01/25/2018 Mohdixon Lroudi Problem Active 2018-01-25 02:45:48 Armando Cárdenas Former smoker Form er smoker Active Problem 01/25/2018 Philippe Gibson Problem Active 2018-01-25 02:45:48 John Cárdenas Dyspnea, unspecified type Dysp kobi, unspecified type Active Problem 01/25/2018 Philippe Gibson Problem Active 20 16-01-28 02:45:48 John Cárdenas Preoperative cardiovascular examination Preoperative cardiovascular examination Active Problem 01/25/2018 Philippe Gibson Problem Active 2018-01-25 02:45:48 Daniel Cárdenas 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 Active Problem 01/25/2018 Philippe Gibson Problem Active 2018-01-25 02:45:48 [facility] Fatigue Fati shane Active Diagnosis 12/19/2017 Keegan Ingram Diagnosis Active 2017-12-19 02:46:26 [facility] Encounter for screening for other viral diseases Encounter for screening for other viral diseases Active Diagnosis 09/02/2019 Keegan Ingram Diagnosis Active 2019-09-02 03:46:32 [facility] 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 Active Diagnosis 09/02/2019 Keegan Ingram Diagnosis Active 2019-09-02 03:46:32 [facility] Encounter for screening for other bacterial diseases Encounter for screening for other bacterial diseases Active Diagnosis 09/02/2019 Keegan Ingram Diagnosis Active 2019-09-02 03:46:32 [facility] Screening for tuberculosis Scr eening for tuberculosis Active Diagnosis 09/02/2019 Keegan Ingram Diagnosis Active 2019-09-02 03:46:32 [facility] Chronic pain Dryerman/Woman juwan pain Active Problem 04/24/2020 Keegan Ingram Problem Active 2020-04-24 02:45:06 [facility] Immunocompromised state Immu nocompromised state Active Problem 04/24/2020 Keegan Ingram Problem Active 2020-04-24 02 :45:06 [facility] Allergies, Adverse Reactions, Alerts Allergy Name Allergy Type Status Severity Reaction(s) Onset Date Inacti ve Date Treating Clinician Comments Source Remicade Remicade Active Info Not Available 2020-04-14 00:00:00 John Avi Mirapex Mirapex Active nausea/emesis 2020-04-14 00:00:00 [facility] latex DA Active U 2019-01-21 00:00:00 [facility] Latex Allergy to Substance Active RASH 2017-06-28 00:00:00 [facility] NJayAChaz Shepherd Active Info Not Available 2017-02-28 00:00:00 [facility] latex DA Active U 2013-02-17 00:00:00 [facility] Latex Gloves Adverse Reaction Active Info Not Available [facility] Social History Smoking Status Start Date Stop Date Source Never smoker [facility] (LUF/IZAIAH/SA) Medications Ordered Medication Name Filled Medication Name Start Date Stop Da te Current Medication? Ordering Clinician Indication Dosage Frequency Signature (SIG) Comments Components Source Medrol Dose Davis 2020-04-22 00:00:00 Yes Gregory Ingram as directed [facility] Nexium 2020-04-19 02:46:07 Yes Milad Rodriguez TAKE ONE CAPSULE BY MOUTH EVERY DAY [facility] Atenolol 2020-04-19 02:46:07 Yes Milad Rodriguez 1 t ablet [facility] Gabapentin 2020-04-19 02:46:07 Yes Milad Rodriguez 1 tablet [facility] Vitamin D 2020-04-19 02:46:07 Yes Milad Rodriguez 1 tablet [facility] Tylenol/Codeine #3 2020-04-14 00:00:00 Yes Milad Rodriguez 1 tablet as needed [facility] Chlordiazepoxide HCl 2020-04-14 00:00:00 Yes Milad Rodriguez 1 capsule [facility] Tramadol HCl 2019-08-20 00:00:00 Yes Maria E Martines 1 tablet as needed [facility] Medrol Dose Davis 2018-12-01 00:00:00 Yes Evaristo Olguin as directed [facility] Chlordiazepoxide HCl 2018-09-09 00:00:00 Yes Maria E Martines 1 capsule [facility] Chlordiazepoxide HCl 2018-08-12 00:00:00 Yes Evaristo Botellosaf 1 capsule [facility] PredniSONE 2018-08-05 00:00:00 Yes Evaristo Rolonf 1-2 tabs prn for arthritis flare up [facility] Zofran 2018-08-05 00:00:00 Yes Milad Rodriguez 1 tab let [facility] Nasacort Nasacort 2018-07-31 00:00:00 Yes Duane Mcdonnell 2 puffs in each nostril [facility] Ofloxacin Ofloxacin 2018-07-31 00:00:00 2018-08-06 00:00:00 No Jayla Mcdonnell 4 drops into affected ear [facility] Gabapentin 2018-06-17 02:46:27 Yes Ronala Clau 1 tablet [facility] Tylenol/Codeine #3 2018-06-10 00:00:00 Yes Maria E Martines 1 tablet as needed [facility] Meclizine HCl 2018-06-10 00:00:00 Yes Milad Rodriguez 1 tablet as needed [facility] Atenolol 2018-01-25 02:45:48 Yes Mohamed Jeroudi 1 tablet [facility] Azelastine HCl 2018-01-25 02:45:48 Yes Mohamed Jeroudi 1 puff in each nostril [facility] Hydrocodone-Acetaminophen 2018-01-25 02:45:48 Yes Mohame d Jeroudi 1 tablet as needed [facility] Omeprazole 2018-01-25 02:45:48 Yes Mohamed Jeroudi 1 capsule [facility] Triamterene-HCTZ 2018-01-25 02:45:48 Yes Mohamed Jeroudi 1 tablet in the morning [facility] Gabapentin 2018-01-25 02:45:48 Yes Mohamed Jeroudi 1 tablet [facility] Asmanex 14 Metered Doses 2018-01-25 02:45:48 Yes Mohamed Jeroudi 1 puff in the evening [facility] Pramipexole Dihydrochloride 2018-01-25 02:45:48 Yes Moha med Jeroudi 1 tablet before bedtime [facility] Stiolto Respimat 2018-01-25 02:45:48 Yes Mohamed Jeroudi 2 puffs [facility] Vitamin D (Ergocalciferol) 2017-12-17 00:00:00 Yes Gretta Ingram 1 capsule [facility] Ciprodex Ciprodex 2017-12-11 00:00:00 Yes Duane Mcdonnell not defined [facility] Simponi Aria 2017-09-02 00:00:00 Yes Milad Rodriguez as directed [facility] PredniSONE 2017-08-20 00:00:00 Yes Gregory Melgarer 1-2 tabs PRN [facility] PredniSONE 2017-08-20 00:00:00 Yes Evaristo Rolonf 1-2 tabs PRN [facility] Atenolol 2017-07-23 02:45:17 Yes Mohamed Jeroudi 1 tablet [facility] Gabapentin 2017-07-23 02:45:17 Yes Mohamed Jeroudi 1 tablet [facility] Pramipexole Dihydrochloride 2017-07-23 02:45:17 Yes Killian med Jeroudi 1 tablet before bedtime [facility] Triamterene-HCTZ 2017-07-23 02:45:17 Yes Mohamed Jeroudi 1 tablet in the morning [facility] Omeprazole 2017-07-23 02:45:17 Yes Mohamed Jeroudi 1 capsule [facility] Azelastine HCl 2017-07-23 02:45:17 Yes Chasidyamed Jeroudi 1 puff in each nostril [facility] Asmanex 14 Metered Doses 2017-07-23 02:45:17 Yes Chasidyamed Jeroudi 1 puff in the evening [facility] Hydrocodone-Acetaminophen 2017-07-23 02:45:17 Yes Chasidyame d Jeroudi 1 tablet as needed [facility] Stiolto Respimat 2017-07-23 02:45:17 Yes Philippe Lroudi 2 puffs [facility] Ranitidine HCl Ranitidine HCl 2017-07-16 00:00:00 Yes Duane baezon 1 tablet [facility] Tylenol/Codeine #3 2016-12-28 00:00:00 Yes Evaristo Rolon f 1 tablet as needed [facility] Acetaminophen 300 MG / Codeine Phosphate 60 MG Oral Ta blet Acetaminophen 300 MG / Codeine Phosphate 60 MG Oral Tablet Yes 1tab QID [facility] (LUF/IZAIAH/SA) Atenolol 50 MG Oral Tablet Atenolol 50 MG Oral Tablet Yes 50mg [facility] (LUF/IZAIAH/SA) gabapentin 600 MG Oral Tablet gabapentin 600 MG Oral Tablet Yes 600mg TID [facility] (LUF/IZAIAH/SA) Gabapentin Gabapentin Yes Duane Mcdonnell not defin ed [facility] Triamterene Triamterene Yes Duane Mcdonnell not def ined [facility] Atenolol Atenolol Yes Duane Mcdonnell not defined [facility] Acetamin Acetamin Yes Duane Mcdonnell not defined [facility] Atenolol 50 Mg Tablet Atenolol 50 Mg Tablet Yes 50 Daily [facility] Azithromycin (Z-Davis) 250 Mg Tablet Azithromycin (Z-Davis) 250 Mg Tablet Yes 250 Use As Directed [facility] Pantoprazole Sodium (Protonix) 40 Mg Tablet. Pantopr azole Sodium (Protonix) 40 Mg Tablet. Yes 40 Daily [facility] Gabapentin 300 Mg Capsule, 600 Mg Oral Gabapentin 300 Mg Capsule , 600 Mg Oral 2019-05-15 00:00:00 No 600 Three Times A Day [facility] Ropinirole Hcl 0.5 Mg Tablet, 0.5 Mg Oral Ropinirole H cl 0.5 Mg Tablet, 0.5 Mg Oral 2019-05-15 00:00:00 No .5 Bedtime [facility] Meclizine Hcl 12.5 Mg Tablet, 25 Mg Oral Meclizine Hcl 12.5 Mg Tablet, 25 Mg Oral 2019-03-11 00:00:00 No 25 Daily [facility] Pramipexole Di-Hcl (Pramipexole Dihydrochloride) 0.25 Mg Tablet, 0.5 Tab Oral Pramipexole Di-Hcl (Pramipexole Dihydrochloride) 0.25 Mg Tablet, 0.5 Tab Oral 2019-03-11 00:00:00 No .5 Twice A Day [facility] Triamterene/Hctz 75MG/50MG , Oral Triamterene/Hctz 75MG/50MG , Oral 2019-03-11 00:00:00 No Daily [facility] Vital Signs Vital Name Observation Time Observation Value Comments Source Weight 2020-04-14 20:00:00 [facility] Height 2020-04-14 20:00:00 [facility] Temperature Oral (F) 2020-04-14 20:00:00 97.9 F [facility] Heart Rate 2020-04-14 20:00:00 [facility] Diastolic (mm Hg) 2020-04-14 20:00:00 [facility] [place] Systolic (mm Hg) 2020-04-14 20:00:00 [facility] [place] Weight 2019-08-20 20:30:00 [facility] Height 2019-08-20 20:30:00 [facility] [place] Temperature Oral (F) 2019-08-20 20:30:00 97.7 F [facility] Heart Rate 2019-08-20 20:30:00 [facility] [place] Diastolic (mm Hg) 2019-08-20 20:30:00 [facility] [place] Systolic (mm Hg) 2019-08-20 20:30:00 Armando [facility] Weight 2019-06-16 18:45:00 [facility] Height 2019-06-16 18:45:00 [facility] Temperature Oral (F) 2019-06-16 18:45:00 98.9 F [facility] [place] Heart Rate 2019-06-16 18:45:00 [facility] Diastolic (mm Hg) 2019-06-16 18:45:00 [facility] [place] Systolic (mm Hg) 2019-06-16 18:45:00 [facility] [place] Weight 2019-01-05 16:45:00 [facility] Height 2019-01-05 16:45:00 [facility] [place] Temperature Oral (F) 2019-01-05 16:45:00 96.8 F [facility] Heart Rate 2019-01-05 16:45:00 [facility] [place] Diastolic (mm Hg) 2019-01-05 16:45:00 [facility] Systolic (mm Hg) 2019-01-05 16:45:00 [facility]ando [facility] [place] Weight 2018-11-07 16:15:00 [facility] Height 2018-11-07 16:15:00 [facility] [place] Temperature Oral (F) 2018-11-07 16:15:00 96.6 F [facility] [place] Heart Rate 2018-11-07 16:15:00 [facility] Diastolic (mm Hg) 2018-11-07 16:15:00 [facility] Systolic (mm Hg) 2018-11-07 16:15:00 Armando [facility] Weight 2018-11-04 19:15:00 [facility] Height 2018-11-04 19:15:00 [facility] [place] Temperature Oral (F) 2018-11-04 19:15:00 98.0 F [facility] [place] Heart Rate 2018-11-04 19:15:00 [facility] Diastolic (mm Hg) 2018-11-04 19:15:00 [facility] Systolic (mm Hg) 2018-11-04 19:15:00 [facility]ando [facility] [place] Weight 2018-09-09 19:00:00 [facility] Height 2018-09-09 19:00:00 [facility] [place] Temperature Oral (F) 2018-09-09 19:00:00 98.8 F [facility] Heart Rate 2018-09-09 19:00:00 [facility] Diastolic (mm Hg) 2018-09-09 19:00:00 [facility] [place] Systolic (mm Hg) 2018-09-09 19:00:00 Armando [facility] Weight 2018-08-12 21:00:00 [facility] Height 2018-08-12 21:00:00 [facility] Temperature Oral (F) 2018-08-12 21:00:00 97.2 F [facility] [place] Heart Rate 2018-08-12 21:00:00 [facility] Diastolic (mm Hg) 2018-08-12 21:00:00 [facility] Systolic (mm Hg) 2018-08-12 21:00:00 [facility]ando [facility] Weight 2018-08-05 19:00:00 [facility] [place] Height 2018-08-05 19:00:00 [facility] Temperature Oral (F) 2018-08-05 19:00:00 98.5 F [facility] [place] Heart Rate 2018-08-05 19:00:00 [facility] Diastolic (mm Hg) 2018-08-05 19:00:00 [facility] [place] Systolic (mm Hg) 2018-08-05 19:00:00 [facility] [place] Weight 2018-06-10 18:30:00 [facility] [place] Height 2018-06-10 18:30:00 [facility] Temperature Oral (F) 2018-06-10 18:30:00 97.0 F [facility] Heart Rate 2018-06-10 18:30:00 [facility] [place] Diastolic (mm Hg) 2018-06-10 18:30:00 [facility] [place] Systolic (mm Hg) 2018-06-10 18:30:00 Armando mitzil [place] Body Temperature 2018-02-22 12:32:00 98.2 F [facility] (LUF/IZAIAH/SA) Respiratory Rate 2018-02-22 12:32:00 20 /min [facility] (LUF/IZAIAH/SA) O2% BldC Oximetry 2018-02-22 12:32:00 98 % [facility] (LUF/IZAIAH/SA) BP Systolic 2018-02-22 12:32:00 128 mm[Hg] [facility] (LUF/IZAIAH/SA) BP Diastolic 2018-02-22 12:32:00 71 mm[Hg] [facility] (LUF/IZAIAH/SA) Height 2018-02-22 12:32:00 71 in [facility] (LUF/IZAIAH/SA) Weight Measured 2018-02-22 12:32:00 237 lbs [facility] (LUF/IZAIAH/SA) BMI (Body Mass Index) 2018-02-22 12:32:00 33.1 [facility] (LUF/IZAIAH/SA) Weight 2018-02-13 18:15:00 [facility] Height 2018-02-13 18:15:00 [facility] [place] Temperature Oral (F) 2018-02-13 18:15:00 97.3 F [facility] Heart Rate 2018-02-13 18:15:00 [facility] Diastolic (mm Hg) 2018-02-13 18:15:00 [facility] [place] Systolic (mm Hg) 2018-02-13 18:15:00 Armando [facility] [place] Weight 2017-12-16 20:00:00 [facility] Height 2017-12-16 20:00:00 [facility] Temperature Oral (F) 2017-12-16 20:00:00 98.2 F [facility] Heart Rate 2017-12-16 20:00:00 [facility] Diastolic (mm Hg) 2017-12-16 20:00:00 [facility] Systolic (mm Hg) 2017-12-16 20:00:00 Armando [facility]vi Weight 2017-10-21 21:30:00 [facility] [place] Height 2017-10-21 21:30:00 [facility] Temperature Oral (F) 2017-10-21 21:30:00 99.0 F [facility] [place] Heart Rate 2017-10-21 21:30:00 [facility] [place] Diastolic (mm Hg) 2017-10-21 21:30:00 [facility] [place] Systolic (mm Hg) 2017-10-21 21:30:00 Armando rial Avi Weight 2017-02-28 18:00:00 [facility] Height 2017-02-28 18:00:00 [facility] Temperature Oral (F) 2017-02-28 18:00:00 97.3 F [facility] [place] Heart Rate 2017-02-28 18:00:00 [facility] Diastolic (mm Hg) 2017-02-28 18:00:00 [facility] [place] Systolic (mm Hg) 2017-02-28 18:00:00 [facility]ando [facility] [place] Weight 2017-01-31 20:00:00 [facility] [place] Height 2017-01-31 20:00:00 [facility] [place] Temperature Oral (F) 2017-01-31 20:00:00 97.6 F [facility] Heart Rate 2017-01-31 20:00:00 [facility] [place] Diastolic (mm Hg) 2017-01-31 20:00:00 [facility] Systolic (mm Hg) 2017-01-31 20:00:00 [facility]ando [facility] [place] Weight 2017-01-16 20:30:00 [facility] [place] Height 2017-01-16 20:30:00 [facility] Temperature Oral (F) 2017-01-16 20:30:00 98.0 F [facility] [place] Heart Rate 2017-01-16 20:30:00 [facility] [place] Diastolic (mm Hg) 2017-01-16 20:30:00 [facility] [place] Systolic (mm Hg) 2017-01-16 20:30:00 [facility] [place] Procedures Procedure Date / Time Performed Performing Clinician [facility] e Computed tomography of brain without radiopaque contrast 201 06-07-14 00:00:00 CINDY BURROWS [facility] Computed tomography of cervical spine without contrast 05-13 00:00:00 CINDY BURROWS [facility] REMOVE PILONIDAL CYST EXTEN 2019-03-17 00:00:00 ELMIRA HUGHES [facility] X-ray of chest, two views 2019-03-11 00:00:00 ELMIRA HUGHES [facility], [facility] Encounters Start Date/Time End Date/Time Encounter Type Admission Type Attendi [facility] Care Department Encounter ID Source 2020-04-22 09:51:00 2020-04-22 09:51:00 Outpatient Gregory CALERO [id number] Keegan Ingram MD 2020-04-14 15:00:00 2020-04-14 15:00:00 Outpatient Gregory Ingram MD [place] [id number] Keegan Ingram MD 2020-03-14 13:57:00 2020-03-14 13:57:00 Outpatient Gregory CALERO [id number] Keegan Ingram MD 2019-11-09 15:05:00 2019-11-09 15:05:00 Outpatient MD GALILEA Cazares MD [place] [id number] Keegan Ingram MD 2019-10-28 16:53:00 2019-10-28 16:53:00 Outpatient MD GALILEA Cazares MD [place] [id number] Keegan Ingram MD 2019-08-20 14:53:00 2019-08-20 14:53:00 Outpatient MD GALILEA Cazares MD PA [id number] Keegan Ingram MD 2019-08-20 14:30:00 2019-08-20 14:30:00 Outpatient Gregory Ingram MD [place] [id number] Keegan Ingram MD 2019-06-16 13:45:00 2019-06-16 13:45:00 Outpatient Gregory Ingram MD PA [id number] Keegan Ingram MD 2019-06-03 12:40:00 2019-06-03 12:40:00 Outpatient MD GALILEA Villa MD [place] [id number] Keegan Ingram MD 2019-05-20 11:17:00 2019-05-20 11:17:00 Outpatient Gregory Ingram MD PA [id number] Keegan Ingram MD 2019-05-14 02:17:00 2019-05-15 18:35:00 Discharged Inpatient (obs) 1 [facility] [id number] [facility] 2019-03-30 14:59:00 2019-03-30 14:59:00 Outpatient Gregory Ingram MD [place] [id number] Keegan Ingram MD 2019-03-17 07:14:00 2019-03-17 07:14:00 Registered Surgical Day Car e ELMIRA PARRA [facility] [id number] [facility] 2019-03-04 16:27:00 2019-03-04 16:27:00 Outpatient Gregory Ingram MD [place] [id number] Keegan Ingram MD 2019-01-08 10:55:00 2019-01-08 10:55:00 Outpatient [facility] [id number] [facility] 2019-01-05 11:45:00 2019-01-05 11:45:00 Outpatient Gregory Ingram MD [place] [id number] Keegan Ingram MD 2018-12-01 16:00:00 2018-12-01 16:00:00 Outpatient Gregory Ingram MD PA [id number] Keegan Ingram MD 2018-11-28 13:18:00 2018-11-28 13:18:00 Outpatient Gregory Ingram MD PA [id number] Keegan Ingram MD 2018-11-07 10:15:00 2018-11-07 10:15:00 Outpatient Gregory Ingram MD PA [id number] Keegan Ingram MD 2018-11-04 13:15:00 2018-11-04 13:15:00 Outpatient Gregory Ingram MD PA [id number] Keegan Ingram MD 2018-09-09 13:00:00 2018-09-09 13:00:00 Outpatient Gregory Ingram MD PA [id number] Keegan Ingram MD 2018-08-26 14:53:00 2018-08-26 14:53:00 Outpatient Gregory CALERO [id number] Keegan Ingram MD 2018-08-12 15:00:00 2018-08-12 15:00:00 Outpatient Gregory CALERO [id number] Keegan Ingram MD 2018-08-05 13:00:00 2018-08-05 13:00:00 Outpatient Gregory CALERO [id number] Keegan Ingram MD 2018-07-31 10:00:00 2018-07-31 10:00:00 Outpatient [facility] [id number] [facility] 2018-07-30 15:49:00 2018-07-30 15:49:00 Outpatient [facility] [id number] [facility] 2018-06-23 18:55:00 2018-06-23 18:55:00 [facility] [id number] [facility] 2018-06-10 14:46:00 2018-06-10 14:46:00 Outpatient Gregory CALERO [id number] Keegan Ingram MD 2018-06-10 13:30:00 2018-06-10 13:30:00 Outpatient Gregory CALERO [id number] Keegan Ingram MD 2018-02-22 12:13:00 2018-02-22 14:30:00 FX 1 RIB LT SIDE INITIAL CL OS FX 1 JOE EASLEY [facility], [address] [place] [address], [place] [address] [facility] [id number] [facility] (LUF /IZAIAH/SA) 2018-02-13 13:15:00 2018-02-13 13:15:00 Outpatient Gregory CALERO [id number] Keegan Ingram MD 2018-02-11 15:39:00 2018-02-11 15:39:00 Outpatient Gregory Ingram MD PA [id number] Keegan Ingram MD 2017-12-17 12:56:00 2017-12-17 12:56:00 Outpatient Gregory CALERO [id number] Keegan Ingram MD 2017-12-16 15:00:00 2017-12-16 15:00:00 Outpatient Gregory Ingram MD PA [id number] Keegan Ingram MD 2017-12-11 13:20:00 2017-12-11 13:20:00 [facility]patient [facility] [id number] [facility] 2017-12-04 13:00:00 2017-12-04 13:00:00 Outpatient [facility] [id number] [facility] 2017-10-22 08:34:00 2017-10-22 08:34:00 Outpatient Gregory Ingram MD PA [id number] Keegan Ingram MD 2017-10-21 15:30:00 2017-10-21 15:30:00 Outpatient Gregory Ingram MD PA [id number] Keegan Ingram MD 2017-02-28 13:00:00 2017-02-28 13:00:00 Outpatient Philippe Gibson MD PA [id number] [employer] 2017-02-12 11:00:00 2017-02-12 11:00:00 Outpatient Philippe Gibson MD PA [id number] [employer] 2017-01-31 15:00:00 2017-01-31 15:00:00 Outpatient Philippe Gibson MD PA [id number] [employer] 2017-01-16 15:30:00 2017-01-16 15:30:00 Outpatient Philippe Gibson MD PA [id number] [employer] Results Test Description Test Time Test Comments Results Result Comments Source CHEST SINGLE (PORTABLE) 2020-04-02 07:07:00 [facility] [address] [address] Patient Name: NOEMY ARGUETA MR #: [id number] : 1935 Age/Sex: 84/M Req #: [id number] Adm Physician: AG JACOBSEN MD Ordered by: ANITHA POLANCO MD, MD Report #: [id number] Location: [facility] Room/Bed: [place] [address] Procedure: [id number] DX/CHEST SINGLE (PORTABLE) Exam Date: 04/02/20 Exam Time: 05 REPORT STATUS: Signed EXAMINATION: CHEST SINGLE (PORTABLE) INDICATION: Y HYPOXIA [id number] Y COMPARISON: 04/01/2020 FINDINGS: AP view TUBES and LINES: None. LUNGS: Unchanged ill-defined bibasilar opacities. PLEURA: No pleural effusion or pneumothorax. HEART AND MEDIASTINUM: The cardiomediastinal silhouette is unchanged. BONES AND SOFT TISSUES: No acute osseous lesion. Soft tissues are unremarkable. UPPER ABDOMEN: No free air under the diaphragm. Elevated right hemidiaphragm. IMPRESSION: Stable exam. Unchanged bibasilar opacities which may represent pneumonia, atelectasis, and/or infection. Signed by: Omi Deleon MD on 04/02/2020 7:08 AM Dictated By: OMI DELEON MD 7 Transcribed By: APOORVA on 04/02/20707 COPY TO: ANITHA POLANCO CT BRAIN WO 2020-04-01 11:20:00 [place] [address] Patient Name: NOEMY ARGUETA MR #: [id number] : 1935 Age/Sex: 84/M Req #: [id number] [facility] Physician: Ordered by: ANITHA POLANCO MD, MD Report #: [id number] Location: ER Room/Bed: Procedure: [id number] CT/CT BRAIN WO Exam Date: 04/01/20 Exam Time: 1050 REPORT STATUS: Signed EXAMINATION: Head CT HISTORY: Weakness, fever, status post fall. COMPARISON: Head CT 05/14/2019 TECHNIQUE: Helical axial images of the head were obtained. Reformatted coronal and sagittal images from the axial data. Dose modulation, iterative reconstruction, and/or weight based adjustment of the mA/kV was utilized to reduce the radiation dose to as low as reasonably achievable. Image quality: Motion/streaking artifact limits the evaluation of the skull base and posterior cranial fossa. FINDINGS: Parenchyma: 1. Persistent mild pulmonary chronic microvascular ischemic changes. 2. No mass or hemorrhage. No CT evidence of acute territorial vascular insult. Extra-axial spaces:No abnormal density. No extra-axial fluid collections Brain volume: Normal for age. Ventricles: No hydrocephalus or displacement. Arteries: No density suggestive of thrombus. Dural sinuses: No abnormal density. Foramen magnum: No mass, Chiari malformation, or basilar invagination. Sella: Enlarged, partially empty, mostly CSF filled. Paranasal/mastoid sinuses: Imaged portions unremarkable. Skull/Scalp: No lytic or blastic lesions. No fractures. IMPRESSION: 1. No acute intracranial abnormalities. 2. Persistent mild white matter chronic microvascular ischemic changes. Signed by: Dr. Humble Stearns M.D. on 04/01/2020 11:26 AM Dictated By: HUMBLE STEARNS MD 1126 Transcribed By: APOORVA on 04/01/20 1126 COPY TO: ANITHA POLANCO CHEST SINGLE (PORTABLE) 2020-04-01 11:17:00 [place] [address] Patient Name: NOEMY ARGUETA MR #: [id number] : 1935 Age/Sex: 84/M Req #: [id number] Adm Physician: Ordered by: ANITHA POLANCO MD, MD Report #: [id number] Location: ER Room/Bed: Procedure: [id number] DX/CHEST SINGLE (PORTABLE) Exam Date: 04/01/20 Exam Time: 1025 REPORT STATUS: Signed EXAMINATION: CHEST SINGLE (PORTABLE) INDICATION: Y ERMD ORDER [id number] Y COMPARISON: 03/13/2020 FINDINGS: AP view TUBES and LINES: None. LUNGS: Lungs are well inflated. Bandlike reticular o pacities in both lung bases, left greater than right, increased. PLEURA: No pleural effusion or pneumothorax. HEART AND MEDIASTINUM: The cardiac silhouette is within normal limits. Tortuous thoracic aortic aorta with possible ectasia of the ascending thoracic segment remains unchanged. BONES AND SOFT TISSUES: Mild deformity of the posterior right fifth and sixth ribs is unchanged. Soft tissues are unremarkable. UPPER ABDOMEN: No free air under the diaphragm. IMPRESSION: Worsening bandlike reticular opacities in both lung bases since 03/13/2020 may reflect interval aspiration or developing multifocal pneumonia. Signed by: Dr. Kirsty Mccarthy M.D. on 04/01/2020 11:19 AM Dictated By: KIRSTY MCCARTHY MD 1119 Transcribed By: APOORVA on 04/01/20 1119 COPY TO: ANITHA POLANCO CHEST SINGLE (PORTABLE) 2020-03-13 18:24:00 [facility] [address] [address] Patient Name: NOEMY ARGUETA MR #: [id number] : 1935 Age/Sex: 84/M Req #: [id number] Adm Physician: Ordered by: PER AU MD Report #: [id number] Location: ER Room/Bed: Procedure: [id number] DX/CHEST SINGLE (PORTABLE) Exam Date: 03/13/20 Exam Time: 1811 REPORT STATUS: Signed EXAMINATION: CHEST SINGLE (PORTABLE) INDICATION: CHEST CONGESTION COMPARISON: 05/14/2019 FINDINGS: TUBES and LINES: None. LUNGS: Bilateral patchy densities, right greater than left again observed, suggestive of atelectasis. Mild bilateral perihilar, peribronchial thickening. Mild prominence of the pulmonary vasculature. PLEURA: No pleural effusion or pneumothorax. HEART AND MEDIASTINUM: The cardiomediastinal silhouette is unremarkable. Mild calcification of the aortic arch. BONES AND SOFT TISSUES: No acute osseous lesion. Remote healed right-sided rib fractures. UPPER ABDOMEN: No free air under the diaphragm. IMPRESSION: Bibasilar atelectasis. Mild bilateral perihilar, upper bronchial thickening may represent a mild viral infection versus reactive airway disease. Signed by: Dr. Harvey Magallanes M.D. on 03/13/2020 6:28 PM Dictated By: LIZ MAGALLANES MD, MD 27 Transcribed By: APOORVA on 03/13/201827 COPY TO: PER AU MD Bedside Glucose 2019-05-15 11:35:00 Test Item Bedside Glucose (test code = 78836-8) 123 70-120 H Meter ID: [id number] [facility] SpringsClumped Platelets 2019-05-15 08:26:00* Test Item Value Reference Range Interpretation Comments Clumped Platelets (test code = 7796-6) NONE NONE [facility] Wsygo3662-41-12 05:59:00* Test Item Value Reference Range Interpretation Comments Sodium Level (test code = 2951-2) 141 136-145 [facility]Potassium Amfgg0220-55-54 05:59:00* Test Item Value Reference Range Interpretation Comments Potassium Level (test code = 2823-3) 3.4 3.5-5.1 L [facility] CenterChloride Havwr9380-89-96 05:59:00* Test Item Value Reference Range Interpretation Comments Chloride Level (test code = 2075-0) 110 98-107 H [facility] CenterCarbon Dioxide Cgofg8288-70-79 05:59:00* Test Item Value Reference Range Interpretation Comments Carbon Dioxide Level (test code = 2028-9) 23 22-29 [facility] CenterAnion Zzu6837-86-11 05:59:00* Test Item Value Reference Range Interpretation Comments Anion Gap (test code = 75977-1) 11.4 8-16 [facility] CenterBlood Urea Xpyptbal5538-93-55 05:59:00* Test Item Value Reference Range Interpretation Comments Blood Urea Nitrogen (test code = 3094-0) 15 7-26 [facility] CenterCreatinine2019-08-16 05:59:00* Test Item Value Reference Range Interpretation Comments Creatinine (test code = 2160-0) 0.96 0.72-1.25 [facility] CenterBUN/Creatinine Jdoih8693-75-70 05:59:00* Test Item Value Reference Range Interpretation Comments BUN/Creatinine Ratio (test code = 3097-3) 16 6-25 [facility] CenterEstimat Glomerular Filtration Rate 2019-05-15 05:59:00* Test Item Value Reference Range Interpretation Comments Estimat Glomerular Filtration Rate (test code = 685883470) > 60 >60 Ranges were taken from the National Kidney Disease Education Program and the [facility] Kidney Foundation literature.Reference ranges:60 or greater: Qspdcu71-42 ( for 3 consecutive months): Chronic kidney disease 15 or less: Kidney failureCook Children's Medical CenterGlucose Lqcdr2163-50-16 05:59:00* Test Item Value Reference Range Interpretation Comments Glucose Level (test code = REW8166) 122 74-118 H [facility] CenterCalcium Flgfk8356-66-87 05:59:00* Test Item Value Reference Range Interpretation Comments Calcium Level (test code = 10505-2) 7.6 8.4-10.2 L [facility] CenterTotal Zaeuteqlr3418-22-63 05:59:00* Test Item Value Reference Range Interpretation Comments Total Bilirubin (test code = 1975-2) 0.3 0.2-1.2 [facility] CenterAspartate Amino Transf (AST/SGOT) 2019-05-15 05:59:00* Test Item Value Reference Range Interpretation Comments Aspartate Amino Transf (AST/SGOT) (test code = Aspartate Amino Transf (AST/SGOT)) 15 5-34 [facility] CenterAlanine Aminotransferase (ALT/SGPT) 2019-05-15 05:59:00* Test Item Value Reference Range Interpretation Comments Alanine Aminotransferase (ALT/SGPT) (test code = 1742-6) 6 0-55 [facility] CenterTotal Dbrcgul5129-99-69 05:59:00* Test Item Value Reference Range Interpretation Comments Total Protein (test code = 2885-2) 4.8 6.5-8.1 L [facility] CenterAlbumin2019-08-16 05:59:00* Test Item Value Reference Range Interpretation Comments Albumin (test code = 1751-7) 2.1 3.5-5.0 L [facility] CenterGlobulin2019-08-16 05:59:00* Test Item Value Reference Range Interpretation Comments Globulin (test code = 23249-0) 2.7 2.3-3.5 [facility] CenterAlbumin/Globulin Lnshq0812-72-71 05:59:00 * Test Item Value Reference Range Interpretation Comments Albumin/Globulin Ratio (test code = 1759-0) 0.8 0.8-2.0 [facility] CenterAlkaline Myrwjgujpyi7131-64-90 05:59:00* Test Item Value Reference Range Interpretation Comments Alkaline Phosphatase (test code = 6768-6) 56 40-150 [facility] CenterWhite Blood Tbzov7593-42-50 05:58:00* Test Item Value Reference Range Interpretation Comments White Blood Count (test code = 6690-2) 7.18 4.8-10.8 [facility] CenterRed Blood Iwrxm0020-12-63 05:58:00* Test Item Value Reference Range Interpretation Comments Red Blood Count (test code = 789-8) 3.55 4.3-5.7 L [facility] CenterHemoglobin2019-08-16 05:58:00* Test Item Value Reference Range Interpretation Comments Hemoglobin (test code = 18294-3) 10.7 14.0-18.0 L [facility] CenterHematocrit2019-08-16 05:58:00* Test Item Value Reference Range Interpretation Comments Hematocrit (test code = 4544-3) 32.4 38.2-49.6 L [facility] CenterMean Corpuscular Gtdvgr4247-72-92 05:58:00* Test Item Value Reference Range Interpretation Comments Mean Corpuscular Volume (test code = 787-2) 91.3 81-99 [facility] CenterMean Corpuscular Ywfyyhmdor0073-05-61 05:58:00* Test Item Value Reference Range Interpretation Comments Mean Corpuscular Hemoglobin (test code = 785-6) 30.1 28-32 [facility] CenterMean Corpuscular Hemoglobin Concent 2019-05-15 05:58:00* Test Item Value Reference Range Interpretation Comments Mean Corpuscular Hemoglobin Concent (test code = 786-4) 33.0 31-35 [facility] CenterRed Cell Distribution Ugljs2099-69-52 05:58:00* Test Item Value Reference Range Interpretation Comments Red Cell Distribution Width (test code = 19765-0) 13.7 11.7 -14.4 [facility] CenterPlatelet Jhccq8239-70-15 05:58:00* Test Item Value Reference Range Interpretation Comments Platelet Count (test code = 777-3) 134 140-360 L [facility] CenterNeutrophils (%) (Auto)2019-05-15 05:58:00 * Test Item Value Reference Range Interpretation Comments Neutrophils (%) (Auto) (test code = 73521-1) 68.2 38.7-80.0 [facility] CenterLymphocytes (%) (Auto)2019-05-15 05:58:00 * Test Item Value Reference Range Interpretation Comments Lymphocytes (%) (Auto) (test code = 736-9) 19.8 18.0-39.1 [facility] CenterMonocytes (%) (Auto)2019-05-15 05:58:00* Test Item Value Reference Range Interpretation Comments Monocytes (%) (Auto) (test code = 5905-5) 9.9 4.4-11.3 [facility] CenterEosinophils (%) (Auto)2019-05-15 05:58:00 * Test Item Value Reference Range Interpretation Comments Eosinophils (%) (Auto) (test code = 713-8) 1.3 0.0-6.0 [facility] CenterBasophils (%) (Auto)2019-05-15 05:58:00* Test Item Value Reference Range Interpretation Comments Basophils (%) (Auto) (test code = 706-2) 0.4 0.0-1.0 [facility] CenterIM GRANULOCYTES %2019-05-15 05:58:00* Test Item Value Reference Range Interpretation Comments IM GRANULOCYTES % (test code = IM GRANULOCYTES %) 0.4 0.0- 1.0 [facility] CenterNeutrophils # (Auto)2019-05-15 05:58:00* Test Item Value Reference Range Interpretation Comments Neutrophils # (Auto) (test code = 751-8) 4.9 2.1-6.9 [facility] CenterLymphocytes # (Auto)2019-05-15 05:58:00* Test Item Value Reference Range Interpretation Comments Lymphocytes # (Auto) (test code = 46821-9) 1.4 1.0-3.2 [facility] CenterMonocytes # (Auto)2019-05-15 05:58:00* Test Item Value Reference Range Interpretation Comments Monocytes # (Auto) (test code = 742-7) 0.7 0.2-0.8 [facility] CenterEosinophils # (Auto)2019-05-15 05:58:00* Test Item Value Reference Range Interpretation Comments Eosinophils # (Auto) (test code = 711-2) 0.1 0.0-0.4 [facility] CenterBasophils # (Auto)2019-05-15 05:58:00* Test Item Value Reference Range Interpretation Comments Basophils # (Auto) (test code = 704-7) 0.0 0.0-0.1 [facility] CenterAbsolute Immature Granulocyte (auto 2019-05-15 05:58:00* Test Item Value Reference Range Interpretation Comments Absolute Immature Granulocyte (auto (faye t code = Absolute Immature Granulocyte (auto) 0.03 0-0.1 [facility] CenterBlood Xcbrfby1778-12-81 23:56:00* Test Item Value Reference Range Interpretation Comments Blood Culture (test code = 85641390) NO GROWTH AFTER 24 HOURS [facility] CenterHIPS BILAT TWO VWS(+/- PELVIS)2019-05-14 17:32:00 [place] [address] Patient Name: NOEMY ARGUETA MR #: [id number] : 1935 Age/Sex: 83/M Req #: [id number] Adm Physician: HAZEL SHAW MD Ordered by: HAZEL SHAW MD Report #: [id number] Location: MED/SURG2 Room/Bed: [facility] Procedure: [id number] D X/HIPS BILAT TWO VWS(+/- PELVIS) Exam Date: Exam Ti me: REPORT STATUS: Signed Bi lateral hips, 2 views each. History: Status post fall with bruising to t he left hip. Findings: The soft tissues are normal. Bone mineralization is normal. There is no evidence of fracture or dislocation. There are no lytic or sclerotic lesions. There is mild bilateral superior joint space narrowing wit h subchondral sclerosis. IMPRESSION: Mild hip DJD. No acute osseous abnormality. Signed by: Mac Vera on 05/14/2019 5:33 PM Dictated By: MAC VERA MD 173 3 Transcribed By: APOORVA on 05/14/19 1733 COPY TO: HAZEL SHAW MD Creatine Kinase ML2667-25-25 09:00:00* Test Item Value Reference Range Interpretation Comments Creatine Kinase MB (test code = 11383-9) 5.60 0-5.0 H [facility] CenterTroponin P3385-29-92 09:00:00* Test Item Value Reference Range Interpretation Comments Troponin I (test code = DYE4772) 0.015 0-0.300 [facility] CenterCreatine Waztui2778-33-38 08:35:00* Test Item Value Reference Range Interpretation Comments Creatine Kinase (test code = 2157-6) 257 30-200 H [facility] CenterUrine NKJ3351-91-24 03:56:00* Test Item Value Reference Range Interpretation Comments Urine WBC (test code = 5821-4) 0-5 0-5 [facility] CenterUrine DDT1216-36-06 03:56:00* Test Item Value Reference Range Interpretation Comments Urine RBC (test code = 72840-3) 0-5 0-5 [facility] CenterUrine Kctbzjla7548-63-79 03:56:00* Test Item Value Reference Range Interpretation Comments Urine Bacteria (test code = 22336-7) RARE NONE [facility] CenterUrine Epithelial Wiqvw4427-51-46 03:56:00 * Test Item Value Reference Range Interpretation Comments Urine Epithelial Cells (test code = 95938-6) FEW NONE [facility] CenterUrine Ummqp9106-77-97 03:50:00* Test Item Value Reference Range Interpretation Comments Urine Color (test code = 5778-6) YELLOW YELLOW [facility] CenterUrine Tlclluc1139-82-02 03:50:00* Test Item Value Reference Range Interpretation Comments Urine Clarity (test code = 16501-7) CLEAR CLEAR [facility] CenterUrine Specific Fszazrf6457-94-38 03:50:00 * Test Item Value Reference Range Interpretation Comments Urine Specific [place] (test code = 5811-5) <=1.005 1.010-1.02 5 [facility] CenterUrine xS8642-04-08 03:50:00* Test Item Value Reference Range Interpretation Comments Urine pH (test code = 08367-2) 6 5-7 [facility] CenterUrine Leukocyte Qagoqzcl8899-84-77 03:50:00* Test Item Value Reference Range Interpretation Comments Urine Leukocyte Esterase (test code = 88905-4) NEGATIVE NEGATIV E [facility] CenterUrine Lggolmv7369-09-22 03:50:00* Test Item Value Reference Range Interpretation Comments Urine Nitrite (test code = 35242-8) NEGATIVE NEGATIVE [facility] CenterUrine Saqoimh5882-52-35 03:50:00* Test Item Value Reference Range Interpretation Comments Urine Protein (test code = 23105-5) NEGATIVE NEGATIVE [facility] CenterUrine Glucose (UA)2019-05-14 03:50:00* Test Item Value Reference Range Interpretation Comments Urine Glucose (UA) (test code = 48138-0) NEGATIVE NEGATIVE [facility] CenterUrine Tygwobz8333-45-88 03:50:00* Test Item Value Reference Range Interpretation Comments Urine Ketones (test code = 89655-5) NEGATIVE NEGATIVE [facility] CenterUrine Byvghhepnkkk8834-71-04 03:50:00* Test Item Value Reference Range Interpretation Comments Urine Urobilinogen (test code = 34953-7) 0.2 0.2-1 [facility] CenterUrine Xuesollne1791-19-21 03:50:00* Test Item Value Reference Range Interpretation Comments Urine Bilirubin (test code = 1977-8) NEGATIVE NEGATIVE [facility] CenterUrine Lrgjj3630-89-40 03:50:00* Test Item Value Reference Range Interpretation Comments Urine Blood (test code = 30327-0) NEGATIVE NEGATIVE [facility] CenterUrine Opiates Spvwuf7953-03-85 03:49:00* Test Item Value Reference Range Interpretation Comments Urine Opiates Screen (test code = 49190-5) POSITIVE NEGATIVE H ALL TESTS PERFORMED MANUALLY ON [employer] TOX/SEE TEST This test provides only a sc reen. Positive results should be repeated by a confirmatory test.[facility] Barbiturates Pignfd2966-80-22 03:49:00* Test Item Value Reference Range Interpretation Comments Urine Barbiturates Screen (test code = 117647781) NEGATIVE NEGA TIVE [facility] Phencyclidine Icwhry4309-92-74 03:49:00* Test Item Value Reference Range Interpretation Comments Urine Phencyclidine Screen (test code = 18624-3) NEGATIVE NEGAT [facility] Amphetamines Szoluu2122-34-11 03:49:00* Test Item Value Reference Range Interpretation Comments Urine Amphetamines Screen (test code = 14989-3) NEGATIVE NEGATI VE [facility] CenterU[facility] Methamphetamines Hvkhhr9187-66-24 03:49:00* Test Item Value Reference Range Interpretation Comments Urine Methamphetamines Screen (test code = Urine Metha mphetamines Screen) NEGATIVE NEGATIVE [facility] CenterUrine Benzodiazepines Jeyybj8170-94-94 03:49:00* Test Item Value Reference Range Interpretation Comments Urine Benzodiazepines Screen (test code = 62973-4) POSITIVE NEG ATIVE H This test provides only a screen. Positive results should be repeated by a confi rmatory test.[facility] CenterUrine Cocaine Screen 2019-05-14 03:49:00* Test Item Value Reference Range Interpretation Comments Urine Cocaine Screen (test code = 3398-5) NEGATIVE NEGATIVE [facility] SpringsUrine Cannabinoids Oqtmai7980-94-37 03:49:00* Test Item Value Reference Range Interpretation Comments Urine Cannabinoids Screen (test code = 60769-3) NEGATIVE NEGATI VE THESE RESULTS ARE FOR MEDICAL TREATMENT ONLYTHIS REPORT CONTAINS UNCONFIR MED SCREENING RESULTS*POSITIVE RESULTS WILL BE CONFIRMED BY REFERENCE LAB UPON R EQUEST CUT-OFFDRUG CLASS CONCENTRATION ng/mLAmphetamines 1000Methamphetamines 1000Cocaine 300Opiate 300Phencyc lidine 25Cannabinoid 50Barbiturates 300Benzodiazepine 300Methadone 300[facility] SpringsUrine Methadone Xryqdl1389-98-32 03:49:00* Test Item Value Reference Range Interpretation Comments Urine Methadone Screen (test code = 66093-6) NEGATIVE NEGATIVE THESE RESULTS ARE FOR MEDICAL TREATMENT ONLYTHIS REPORT CONTAINS UNCONFIR MED SCREENING RESULTS*POSITIVE RESULTS WILL BE CONFIRMED BY REFERENCE LAB UPON R EQUEST CUT-OFFDRUG CLASS CONCENTRATION ng/mLAmphetamines 1000Methamphetamines 1000Cocaine Metabolite 300Opiate 300Phencyc lidine 25Cannabinoid 50Barbiturates 300Benzodiazepine 300Methadone 300[facility] SpringsCT CERVICAL SPINE XH6775-81-37 00:55:00 [place] [address] Patient Name: NOEMY ARGUETA MR #: [id number] : 1935 Age/Sex: 83/M Req #: [id number] [facility] Physician: Ordered by: CINDY BURROWS MD Report #: [id number] Location: ER Room/Bed: Procedure: 43 CT/CT CERVICAL SPINE WO Exam Date: 05/13/19 Exam Time: 2358 REPORT STATUS: Signed History: Fall. Comparison studies: None Technique: Axial images we re obtained through the cervical region.. Coronal and sagittal images reconstr ucted from the axial data. Dose modulation, iterative reconstruction, and/or w eight based adjustment of the mA/kV was utilized to reduce the radiation dose to as low as reasonably achievable. Intravenous contrast: None Findi ngs: Fractures: None. Soft tissue injuries: None. Atlantoaxial artic ulation: Intact. Alignment: Reversal of normal cervical lordosis is either pos itional or due to muscle spasm. No scoliosis. 2 mm grade 1 anterolisthesis at C4-C5 and 3 mm grade 1 anterolisthesis at C5-C6. Cervicomedullary junction: No abnormalities. The foramen magnum is patent. Soft tissues: No abnormalities . Vertebrae: No fractures, infection or neoplasm. Degenerative kathrin nges: C3-C4: Moderate degenerative disc disease. Mild left foraminal stenos is due to facet and uncovertebral arthrosis. C4-C5: Mild degenerative disc dis ease. Posterior disc osteophyte complex results in mild canal stenosis. Mode rate left foraminal stenosis due to facet and uncovertebral arthrosis. C5-C6: Moderate degenerative disc disease. Mild bilateral facet and uncovertebral art hrosis results in mild foraminal stenosis. . IMPRESSION: 1. No ac mariam cervical spine fracture or dislocation. Reversal of normal cervical lordos is is either positional or due to muscle spasm. 2. Ligament, spinal cord a nd or vascular abnormalities cannot be excluded on the basis of this examinati on. 3. Grade 1 anterolisthesis at C4-C5 and C5-C6. 4. Cervical spond ylosis as detailed above. Signed by: Dr. Jocelyn Moura M.D. on 04/30 1:00 AM Dictated By: JOCELYN MOURA MD Transcribed By: APOORVA on 05/14/1999 COPY TO: CINDY BURROWS MD CHEST SINGLE (PORTABLE) 2019-05-14 00:53:00 [place] [address] Patient Name: NOEMY ARGUETA MR #: [id number] : 1935 Age/Sex: 83/M Req #: [id number] Adm Physician: Ordered by: CINDY BURROWS MD Report #: [id number] Location: ER Room/Bed: Procedure: 60 DX/CHEST SINGLE (PORTABLE) Exam Date: Exam Time: REPORT STATUS: Signed A single frontal view of the chest. HISTORY: Generalized weakness, fall COMPARIS ON: Chest radiograph March 11, 2019 DISCUSSION: Portable technique, limits sensitivity of the exam. Soft tissue attenuation partially limits sens itivity of the exam. Overlying monitoring leads. Tubes/Lines: None Gissell gs and pleura: Mild right greater than left atelectasis versus scarring. N o evidence of a consolidative pneumonia or pulmonary alveolar edema. No defini te pleural effusion or pneumothorax is identified. Heart and mediastinum: The cardiomediastinal silhouette appear(s) appears unchanged when allowing fo r the differences in technique. Bones and soft tissues: Interval heal ing of the right-sided rib fractures, the visualized portions now appear to be in the late stages of healing. No new acute displaced fracture is identified. IMPRESSION: 1. Mild right greater than left atelectasis versus scar ring. 2. Interval near complete healing of the right-sided rib fractures. Signed by: Alix MonkOChaz, M.M.M. on 05/14/2019 12:58 AM Dictated By: SHYAM RODRÍGUEZ DO COPY TO: CINDY BURROWS MD CT BRAIN [id number] 00:47:00 [place] [address] Patient Name: NOEMY ARGUETA MR #: [id number] : 1935 [facility] 83[id number] Req #: [id number] Adm Physician: Ordered by: CINDY BURROWS MD Report #: [id number] Location: ER Room/Bed: Procedure: 42 CT/CT BRAIN WO Exam Date: Exam Time: REPORT STATUS: Signed EXAMINATION: Head CT without contrast. HISTORY:Generalized weakness, status post fall. COMPARISON:Report of MRI brain and CT brain from 06/28/2017, prior images are not available for comparison at the time of interpretation. TECHNIQUE: Multid etector axial images were obtained from the foramen magnum to the vertex witho ut contrast. The images were reconstructed using brain and bone algorithms. T hin section brain images were reformatted into coronal and sagittal planes. Dose modulation, iterative reconstruction, and/or weight based adjustment of t he mA/kV was utilized to reduce the radiation dose to as low as reasonably ach ievable. Intravenous contrast: None IMAGE QUALITY: Acceptable. FINDINGS: Skull/scalp: No lytic or blastic. lesions. No surgical changes. Parenchyma: Nonspecific few, scattered supratentorial white matter hypo density are likely related to small vessel ischemic changes. Focal hypodensity in left eason radiata and lentiform nucleus represents old vascular insult. No acute hemorrhage, mass or acute major vascular territorial infarct. A rteries: No density suggestive of thrombosis. Mild atherosclerotic calcificati on in bilateral carotid siphon. Dural sinuses: No abnormal density sugges tive of thrombosis. Ventricles: Moderate compensated dilatation due to vo lume loss. No acute hydrocephalus. Extra-axial spaces: No abnormal densi ty. Brain volume: Generalized age-related cerebral volume loss. Cr aniocervical junction: No mass, Chiari malformation, or basilar invagination. Sella: Enlarged partial empty sella. Paranasal/mastoid sinuses: Kirti ged portions unremarkable. IMPRESSION: No acute intracranial abnormali ty. Mild supratentorial white matter microvascular ischemic changes and old vascular insult in left eason radiata/putamen. Generalized age-related cerebral volume loss. Signed by: Dr. Jocelyn Moura M.D. on 05/14/2019 12: 54 AM Dictated By: JOCELYN MOURA MD Transcribed By: APOORVA on 05/14/1953 COPY TO: CINDY BURROWS MD Lactic Acid [id number] 00:36:00* Test Item Value Reference Range Interpretation Comments Lactic Acid Level (test code = Lactic Acid Level) 18.7 4.5- 19.8 [facility] 2 [id number] 17:12:00 [place] [address] Patient Name: NOEMY ARGUETA MR #: [id number] : 1935 Age/Sex: 83/M Req #: [id number] Adm Physician: Ordered by: ELMIRA HUGHES MD Report #: [id number] Location: OR Room/Bed: Procedure: [id number] DX/CH EST 2 VIEWS Exam Date: 03/11/19 Exam Time: 1619 REPORT STATUS: Signed Frontal and la teral views of the chest. HISTORY: PREOP, pilonidal cyst COMPARISON: None available. DISCUSSION: Lungs: Mild bibasilar atelect asis versus scarring. Superimposed right lung base peripheral contusion is p ossible in the setting of recent trauma. Pleura: No pleural effusion or evidence of a pneumothorax. Heart and mediastinum: The cardiomediast inal silhouette appears unremarkable. Bones and soft tissues: Diffusely decreased mineralization of the osseous structures limits bone detail. Age uncertain unhealed fracture deformities of the right sixth, seventh, eighth, a nd ninth ribs. The fractures are most likely subacute. Mild accentuation of t he thoracic kyphosis. Mild multilevel degenerative disc changes. IMPRE SSION: Unhealed right rib fracture deformities with adjacent atelectasis, pul monary contusion, and/or scarring. Correlate with specific history and for foc al acute point tenderness. Signed by: Dr. Shyam Rodríguez D.O., M.M.M. on 03/11/2019 5:19 PM Dictated By: SHYAM RODRÍGUEZ DO 18 Transcribed By: APOORVA on 03/11/191718 COPY TO: ELMIRA HUGHES MD [id number] 17:11:00* Test Item Value Reference Range Interpretation Comments GLUBED (test code = GLUBED) 98 mg/dL 74-106 N [facility] [id number] 12:12:00* Test Item Value Reference Range Interpretation Comments GLUBED (test code = GLUBED) 163 mg/dL 74-106 H [facility] certified terminal [facility] [id number] 08:00:00* Test Item Value Reference Range Interpretation Comments GLUBED (test code = GLUBED) 90 mg/dL 74-106 N [facility] certified terminal [facility] BASIC METABOLIC [id number] 05:35:00* Test Item Value Reference Range Interpretation Comments SODIUM (test code = NA) 141 mmol/L 136-145 N POTASSIUM (test code = K) 3.6 mmol/L 3.5-5.1 N CHLORIDE (test code = CL) 110.0 mmol/L 98-107 H CARBON DIOXIDE (test code = CO2) 26.0 mmol/L 21-32 N ANION GAP (test code = GAP) 8.6 10-20 L GLUCOSE (test code = GLU) 185 mg/dL 74-106 H BLOOD UREA NITROGEN (test code = BUN) 12 mg/dL 7-18 N GLOMERULAR FILTRATION RATE (test code = GFR) > 60 mL/min >=60 Estimated GFR by using Modified MDRD formula.Chronic kidney disease is defined as either kidney damageor GFR <60 mL/min/1.73 m2 for >3 months. CREATININE (test code = CREAT) 1.10 mg/dL 0.7-1.3 N BUN/CREATININE RATIO (test code = BUN/CREA) 10.9 10-20 N CALCIUM (test code = CA) 8.0 mg/dL 8.5-10.1 L CREATINE KINASE (CK)2019-01-23 05:35:00* Test Item Value Reference Range Interpretation Comments CREATINE KINASE (CK) (test code = CK) 2348 IUnit/L 26-208 H BASIC METABOLIC [id number] 05:16:00* Test Item Value Reference Range Interpretation Comments SODIUM (test code = NA) 141 mmol/L 136-145 N POTASSIUM (test code = K) 3.6 mmol/L 3.5-5.1 N CHLORIDE (test code = CL) 110.0 mmol/L 98-107 H CARBON DIOXIDE (test code = CO2) mmol/L 21-32 ANION GAP (test code = GAP) 10-20 GLUCOSE (test code = GLU) mg/dL 74-106 BLOOD UREA NITROGEN (test code = BUN) mg/dL 7-18 GLOMERULAR FILTRATION RATE (test code = GFR) mL/min >=60 CREATININE (test code = CREAT) mg/dL 0.7-1.3 BUN/CREATININE RATIO (test code = BUN/CREA) 10-20 CALCIUM (test code = CA) mg/dL 8.5-10.1 CREATINE KINASE (CK)2019-01-23 05:16:00* Test Item Value Reference Range Interpretation Comments CREATINE KINASE (CK) (test code = CK) IUnit/L 26-208 [id number] 20:59:00* Test Item Value Reference Range Interpretation Comments GLUBED (test code = GLUBED) 125 mg/dL 74-106 H [facility] certified terminal [facility] [id number] 16:45:00* Test Item Value Reference Range Interpretation Comments GLUBED (test code = GLUBED) 107 mg/dL 74-106 H Per[facility] by certified terminal computer [facility] URINALYSIS [id number] 13:53:00* Test Item Value Reference Range Interpretation Comments UA COLOR (test code = COLU) LIGHT YELLOW YELLOW UA APPEARANCE (test code = APPU) CLEAR CLEAR UA GLUCOSE DIPSTICK (test code = DGLUU) NEGATIVE mg/dL NEGATIVE UA BILIRUBIN DIPSTICK (test code = BILU) NEGATIVE mg/dL NEGATIVE UA KETONE DIPSTICK (test code = KETU) NEGATIVE mg/dL NEGATIVE UA SPECIFIC GRAVITY (test code = SGU) 1.012 1.001-1.035 UA BLOOD DIPSTICK (test code = MARGO) 1+ (Small) mg/dL NEGATIVE A UA PH DIPSTICK (test code = SARAVANAN) 6.0 5.0-8.0 UA PROTEIN DIPSTICK (test code = PROU) NEGATIVE mg/dL NEGATIVE UA UROBILINIOGEN DIPSTICK (test code = URO) NEGATIVE mg/dL NEGATIVE UA NITRITE DIPSTICK (test code = BRAYDEN) NEGATIVE NEGATIVE UA LEUKOCYTE ESTERASE W REFLEX (test code = LEUUR) NEGATIVE Sean/uL NEGATIVE UA WBC (test code = WBCU) 0-5 per HPF 0-5 UA RBC (test code = RBCU) 0-3 #/HPF 0-5 UA EPITHELIAL CELLS (test code = EPIU) FEW per HPF FEW UA BACTERIA (test code = BACU) FEW #/HPF NONE Urine Source? Clean CatchURINALYSIS [id number] 13:49:00* Test Item Value Reference Range Interpretation Comments UA COLOR (test code = COLU) LIGHT YELLOW YELLOW UA APPEARANCE (test code = APPU) CLEAR CLEAR UA GLUCOSE DIPSTICK (test code = DGLUU) NEGATIVE mg/dL NEGATIVE UA BILIRUBIN DIPSTICK (test code = BILU) NEGATIVE mg/dL NEGATIVE UA KETONE DIPSTICK (test code = KETU) NEGATIVE mg/dL NEGATIVE UA SPECIFIC GRAVITY (test code = SGU) 1.012 1.001-1.035 UA BLOOD DIPSTICK (test code = MARGO) 1+ (Small) mg/dL NEGATIVE A UA PH DIPSTICK (test code = SARAVANAN) 6.0 5.0-8.0 UA PROTEIN DIPSTICK (test code = PROU) NEGATIVE mg/dL NEGATIVE UA UROBILINIOGEN DIPSTICK (test code = URO) NEGATIVE mg/dL NEGATIVE UA NITRITE DIPSTICK (test code = BRAYDEN) NEGATIVE NEGATIVE UA LEUKOCYTE ESTERASE W REFLEX (test code = LEUUR) NEGATIVE Sean/uL NEGATIVE UA WBC (test code = WBCU) per HPF 0-5 UA RBC (test code = RBCU) per HPF 0-5 UA EPITHELIAL CELLS (test code = EPIU) per HPF Few UA BACTERIA (test code = BACU) per HPF NONE Urine Source? Clean [id number] 12:47:00* Test Item Value Reference Range Interpretation Comments GLUBED (test code = GLUBED) 114 mg/dL 74-106 H [facility] certified terminal [facility] [id number] 08:17:00* Test Item Value Reference Range Interpretation Comments GLUBED (test code = GLUBED) 96 mg/dL 74-106 N Performed by certified terminal computer operator [facility] BASIC METABOLIC [id number] 08:12:00* Test Item Value Reference Range Interpretation Comments SODIUM (test code = NA) 141 mmol/L 136-145 N POTASSIUM (test code = K) 3.7 mmol/L 3.5-5.1 N CHLORIDE (test code = CL) 110.0 mmol/L 98-107 H CARBON DIOXIDE (test code = CO2) 23.0 mmol/L 21-32 N ANION GAP (test code = GAP) 11.7 10-20 N GLUCOSE (test code = GLU) 94 mg/dL 74-106 N BLOOD UREA NITROGEN (test code = BUN) 14 mg/dL 7-18 N GLOMERULAR FILTRATION RATE (test code = GFR) > 60 mL/min >=60 Estimated GFR by using Modified MDRD formula.Chronic kidney disease is defined as either kidney damageor GFR <60 mL/min/1.73 m2 for >3 months. CREATININE (test code = CREAT) 0.90 mg/dL 0.7-1.3 N BUN/CREATININE RATIO (test code = BUN/CREA) 15.6 10-20 N CALCIUM (test code = CA) 8.4 mg/dL 8.5-10.1 L CREATINE KINASE (CK)2019-01-22 08:12:00* Test Item Value Reference Range Interpretation Comments CREATINE KINASE (CK) (test code = CK) 5208 IUnit/L 26-208 H BASIC METABOLIC [id number] 07:39:00* Test Item Value Reference Range Interpretation Comments SODIUM (test code = NA) 141 mmol/L 136-145 N POTASSIUM (test code = K) 3.7 mmol/L 3.5-5.1 N CHLORIDE (test code = CL) 110.0 mmol/L 98-107 H CARBON DIOXIDE (test code = CO2) mmol/L 21-32 ANION GAP (test code = GAP) 10-20 GLUCOSE (test code = GLU) mg/dL 74-106 BLOOD UREA NITROGEN (test code = BUN) mg/dL 7-18 GLOMERULAR FILTRATION RATE (test code = GFR) mL/min >=60 CREATININE (test code = CREAT) mg/dL 0.7-1.3 BUN/CREATININE RATIO (test code = BUN/CREA) 10-20 CALCIUM (test code = CA) mg/dL 8.5-10.1 CREATINE KINASE (CK)2019-01-22 07:39:00* Test Item Value Reference Range Interpretation Comments CREATINE KINASE (CK) (test code = CK) IUnit/L 26-208 [id number] 21:50:00* Test Item Value Reference Range Interpretation Comments GLUBED (test code = GLUBED) 117 mg/dL 74-106 H Performed by certified terminal computer operator at [facility] - CT L-SPINE W/O [id number] 19:37:00 Name: NOEMY ARGUETA [facility] : 1935 Age/S: 83 / M [address] [facility] Unit #: [id number] Loc: [place] [address] Phys: Shannon Corey MD Acct: [id number] Dis Date: Status: ADM IN PHONE #: [phone] Exam Date: 01/21/20191918 FAX #: [phone] Reason: H/o fall EXAMS: CPT CODE: [id number] CT L-SPINE W/O CONTRAST 05345 REASON FOR EXAM: H/o fall EXAM ORDER DATE: 01/21/2019 1:48 PM Ordering M.Alix: Shannon Corey MD PROCEDURE: - CT L-SPINE [...] signed by: Fernando Davis M.D. CC: David Porter MD; Shannon Corey MD; Colleen Shaw MD Technologist:JENNIFER FERNANDEZ, RT(R) CT CTDI: DLP: Trnscb Date/Time: 01/21/2019 (1936) t.TOYR.VTL Orig Print D/T: S: 01/21/2019 (1940) CTDI: DLP: PAGE 1 Signed Report - CT T-SPINE W/O CONTRAST 2019-01-21 19:35:00 Name: NOEMY ARGUETA [facility] : 1935 Age/S: 83 / M [address] [facility] Unit #: [id number] Loc: [place] [address] Phys: Shannon Corey MD Acct: [id number] Dis Date: Status: ADM IN PHONE #: [phone] Exam Date: 01/21/20191918 FAX #: [phone] Reason: H/o fall EXAMS: CPT CODE: [id number] CT T-SPINE W/O CONTRAST 71198 REASON FOR EXAM: H/o fall EXAM ORDER [...] signed by: Fernando Davis M.D. CC: David Porter MD; Shannon Corey MD; Colleen Shaw MD Technologist:JENNIFER FERNANDEZ RT(R) CT CTDI: DLP: Trnscb Date/Time: 01/21/2019 (1935) t.SDR.VTL Orig Print D/T: S: 01/21/2019 (1937) CTDI: DLP: PAGE 1 Signed Report - CT C-SPINE W/O CONTRAST 2019-01-21 19:34:00 Name: NOEMY ARGUETA [facility] : 1935 Age/S: 83 / M [address] [facility] Unit #: [id number] Loc: [place] [address] Phys: Shannon Corey MD Acct: [id number] Dis Date: Status: ADM IN PHONE #: [phone] Exam Date: 01/21/2019 191 FAX #: [phone] Reason: H/o fall EXAMS: CPT CODE: [id number] CT C-SPINE W/O CONTRAST 67024 REASON FOR EXAM: H/o fall EXAM ORDER [...] signed by: Fernando Davis M.D. CC: David Porter MD; Shannon Corey MD; Colleen Shaw MD Technologist:JENNIFER FERNANDEZ, RT(R) CT CTDI: DLP: Trnscb Date/Time: 01/21/2019 (1934) t.SDR.VTL Orig Print D/T: S: 01/21/2019 (1936) CTDI: DLP: PAGE 1 Signed Report [id number] 15:53:00* Test Item Value Reference Range Interpretation Comments GLUBED (test code = GLUBED) 120 mg/dL 74-106 H Performed by certified terminal computer operator at [facility] - XR RIBS UNI W/CXR 3+V [id number] 12:17:00 FAX: Obey De Souza MD [phone] [place]: St: [facility] FAX: David Goldstein MD [phone] Name: NOEMY ARGUETA [facility] : 1935 Age/S: 83/M [address] [facility] Unit #: [id number] Loc: [address] [place] [address] Phys: Obey De Souza MD Acct: [id number] Dis Date: Status: ADM IN PHONE #: [phone] Exam Date: 01/20/20192254 FAX #: [phone] Reason: rib pain, fall EXAMS: CPT CODE: [id number] XR RIBS UNI W/CXR 3+[place] [address] HISTORY: Pain after fall. COMPARISON: Chest x-ray from October 18, 2014. Chest x-ray and right rib series, 5 views: The lungs are clear of infiltrates, effusion or congestion. No pneumothorax. Lung scarring. Elevated right hemidiaphragm. Cardiomegaly . Nondisplaced posterolateral fractures of the right 6, 7 and 8 an d 9 ribs. IMPRESSION: Nondisplaced fract ures of the right 6-9 ribs. No pneumothorax. Lungs are clear. * * at 1217 Reported and signed by: Farrukh Leavitt M.D. CC: Obey Licona MD; David Porter MD Technologist: RT OLIVIER Trnscrd Date/Time/By: 01/21/2019 (12 17) : By: [email or web address] Orig Print D/T: S: 01/22/2019 (1147) PAGE 1 Signed Report [id number] 12:13:00* Test Item Value Reference Range Interpretation Comments GLUBED (test code = GLUBED) 114 mg/dL 74-106 H Performed by certified terminal computer operator at [facility] - CT HEAD/BRAIN W/O [id number] 12:02:00 Name: NOEMY ARGUETA [facility] : 1935 Age/S: 83 / M [address] [facility] Unit #: [id number] Loc: [place] [address] Phys: Obey De Souza MD Acct: [id number] Dis Date: Status: ADM IN PHONE #: [phone] Exam Date: 01/20/2019 2300 FAX #: [phone] Reason: fall/AMS EXAMS: CPT CODE: [id number] CT HEAD/BRAIN W/O CONT 33445 HISTORY: Confusion. COMPARISON: None available. CT brain [...] noted. IMPRESSION: No acute intracranial bleeds or extra-axial collections. No acute territorial vascular infarction. No herniation or hydrocephalus or midline shift. 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 at 1202 Reported and signed by: Farrukh Leavitt M.D. CC: Obey De Souza MD; David Porter MD Technologist:AG [place] CTDI: DLP: Trnscb Date/Time: 01/21/2019 (1202) LonaR.[email or web address] Orig Print D/T: S: 01/21/2019 (0645) CTDI: DLP: PAGE 1 Signed Report [id number] 07:52:00* Test Item Value Reference Range Interpretation Comments GLUBED (test code = GLUBED) 100 mg/dL 74-106 N Performed by certified terminal computer operator at [facility] BASIC METABOLIC [id number] 23:39:00* Test Item Value Reference Range Interpretation Comments SODIUM (test code = NA) 138 mmol/L 136-145 N POTASSIUM (test code = K) 4.0 mmol/L 3.5-5.1 N CHLORIDE (test code = CL) 104.0 mmol/L 98-107 N CARBON DIOXIDE (test code = CO2) 26.0 mmol/L 21-32 N ANION GAP (test code = GAP) 12.0 10-20 N GLUCOSE (test code = GLU) 97 mg/dL 74-106 N BLOOD UREA NITROGEN (test code = BUN) 18 mg/dL 7-18 N GLOMERULAR FILTRATION RATE (test code = GFR) 53 mL/min >=60 Estimated GFR by using Modified MDRD formula.Chronic kidney disease is defined as either kidney damageor GFR <60 mL/min/1.73 m2 for >3 months. CREATININE (test code = CREAT) 1.30 mg/dL 0.7-1.3 N BUN/CREATININE RATIO (test code = BUN/CREA) 13.8 10-20 N CALCIUM (test code = CA) 8.9 mg/dL 8.5-10.1 N CREATINE KINASE (CK)2019-01-20 23:39:00* Test Item Value Reference Range Interpretation Comments CREATINE KINASE (CK) (test code = CK) 7841 IUnit/L 26-208 H BASIC METABOLIC [id number] 23:09:00* Test Item Value Reference Range Interpretation Comments SODIUM (test code = NA) 138 mmol/L 136-145 N POTASSIUM (test code = K) 4.0 mmol/L 3.5-5.1 N CHLORIDE (test code = CL) 104.0 mmol/L 98-107 N CARBON DIOXIDE (test code = CO2) 26.0 mmol/L 21-32 N ANION GAP (test code = GAP) 12.0 10-20 N GLUCOSE (test code = GLU) 97 mg/dL 74-106 N BLOOD UREA NITROGEN (test code = BUN) 18 mg/dL 7-18 N GLOMERULAR FILTRATION RATE (test code = GFR) 53 mL/min >=60 Estimated GFR by using Modified MDRD formula.Chronic kidney disease is defined as either kidney damageor GFR <60 mL/min/1.73 m2 for >3 months. CREATININE (test code = CREAT) 1.30 mg/dL 0.7-1.3 N BUN/CREATININE RATIO (test code = BUN/CREA) 13.8 10-20 N CALCIUM (test code = CA) 8.9 mg/dL 8.5-10.1 N CREATINE KINASE (CK)2019-01-20 23:09:00* Test Item Value Reference Range Interpretation Comments CREATINE KINASE (CK) (test code = CK) IUnit/L 26-208 BASIC METABOLIC [id number] 23:02:00* Test Item Value Reference Range Interpretation Comments SODIUM (test code = NA) 138 mmol/L 136-145 N POTASSIUM (test code = K) 4.0 mmol/L 3.5-5.1 N CHLORIDE (test code = CL) 104.0 mmol/L 98-107 N CARBON DIOXIDE (test code = CO2) mmol/L 21-32 ANION GAP (test code = GAP) 10-20 GLUCOSE (test code = GLU) mg/dL 74-106 BLOOD UREA NITROGEN (test code = BUN) mg/dL 7-18 GLOMERULAR FILTRATION RATE (test code = GFR) mL/min >=60 CREATININE (test code = CREAT) mg/dL 0.7-1.3 BUN/CREATININE RATIO (test code = BUN/CREA) 10-20 CALCIUM (test code = CA) mg/dL 8.5-10.1 CREATINE KINASE (CK)2019-01-20 23:02:00* Test Item Value Reference Range Interpretation Comments CREATINE KINASE (CK) (test code = CK) IUnit/L 26-208 CBC W/AUTO [id number] 22:47:00* Test Item Value Reference Range Interpretation Comments WHITE BLOOD CELL (test code = WBC) 12.5 K/mm3 4.5-12.5 N RED BLOOD CELL (test code = RBC) 4.68 mill/mm3 4.0-5.8 N HEMOGLOBIN (test code = HGB) 13.8 gram/dL 13.0-17.5 N HEMATOCRIT (test code = HCT) 43.7 % 42.0-52.0 N MEAN CELL VOLUME (test code = MCV) 93.4 fL 80-98 N MEAN CELL HGB (test code = MCH) 29.5 picogram 27.0-33.0 N MEAN CELL HGB CONCETRATION (test code = MCHC) 31.6 gram/dL 33.0-36. 0 L RED CELL DISTRIBUTION WIDTH (test code = RDW) 14.6 % 11.6-16. 2 N RED CELL DISTRIBUTION WIDTH SD (test code = RDW-SD) 49.8 fL 37 .0-51.0 N PLATELET COUNT (test code = PLT) 143 K/mm3 150-450 L MEAN PLATELET VOLUME (test code = MPV) 10.9 fL 6.7-11.0 N NEUTROPHIL % (test code = NT%) 74.4 % 39.0-69.0 H IMMATURE GRANULOCYTE % (test code = IG%) 0.6 % 0.0-5.0 N LYMPHOCYTE % (test code = LY%) 13.0 % 25.0-55.0 L MONOCYTE % (test code = MO%) 11.6 % 0.0-10.0 H EOSINOPHIL % (test code = EO%) 0.1 % 0.0-5.0 N BASOPHIL % (test code = BA%) 0.3 % 0.0-1.0 N NUCLEATED RBC % (test code = NRBC%) 0.0 % 0-0 N NEUTROPHIL # (test code = NT#) 9.30 K/mm3 1.8-7.7 H IMMATURE GRANULOCYTE # (test code = IG#) 0.08 x10 3/uL 0-0.03 H LYMPHOCYTE # (test code = LY#) 1.62 K/mm3 1.0-5.0 N MONOCYTE # (test code = MO#) 1.45 K/mm3 0-0.8 H EOSINOPHIL # (test code = EO#) 0.01 K/mm3 0.0-0.5 N BASOPHIL # (test code = BA#) 0.04 K/mm3 0.0-0.2 N NUCLEATED RBC # (test code = NRBC#) 0.00 K/mm3 0.0-0.1 N MANUAL DIFF REQUIRED (test code = MDIFF) NO CBC W/AUTO [id number] 22:39:00* Test Item Value Reference Range Interpretation Comments WHITE BLOOD CELL (test code = WBC) K/mm3 4.5-12.5 RED BLOOD CELL (test code = RBC) mill/mm3 4.0-5.8 HEMOGLOBIN (test code = HGB) 13.8 gram/dL 13.0-17.5 N HEMATOCRIT (test code = HCT) 43.7 % 42.0-52.0 N MEAN CELL VOLUME (test code = MCV) fL 80-98 MEAN CELL HGB (test code = MCH) picogram 27.0-33.0 MEAN CELL HGB CONCETRATION (test code = MCHC) gram/dL 33.0-36. 0 RED CELL DISTRIBUTION WIDTH (test code = RDW) % 11.6-16. 2 RED CELL DISTRIBUTION WIDTH SD (test code = RDW-SD) fL 37 .0-51.0 PLATELET COUNT (test code = PLT) K/mm3 150-450 MEAN PLATELET VOLUME (test code = MPV) fL 6.7-11.0 NEUTROPHIL % (test code = NT%) % 39.0-69.0 IMMATURE GRANULOCYTE % (test code = IG%) % 0.0-5.0 LYMPHOCYTE % (test code = LY%) % 25.0-55.0 MONOCYTE % (test code = MO%) % 0.0-10.0 EOSINOPHIL % (test code = EO%) % 0.0-5.0 BASOPHIL % (test code = BA%) % 0.0-1.0 NEUTROPHIL # (test code = NT#) K/mm3 1.8-7.7 LYMPHOCYTE # (test code = LY#) K/mm3 1.0-5.0 MONOCYTE # (test code = MO#) K/mm3 0-0.8 EOSINOPHIL # (test code = EO#) K/mm3 0.0-0.5 BASOPHIL # (test code = BA#) K/mm3 0.0-0.2 XR RIBS UNILATERAL/ PA [id number] 14:04:37Procedures: XR RIBS UNILATERAL/ PA CHESTExam Date: [...] By: AG WATSONDate: 02/23/2018 14:04MRI BRAIN WO [place] [address] Patient Name: NOEMY ARGUETA MR #: [id number] : 1935 Age/Sex: 82/M Req #: [id number] [facility] [place] Physician: KLAUDIA ARZOLA MD Ordered by: CARISSA ROSAS MD Report #: [id number] Location: [facility] Room/Bed: [place] [address] Procedure: [id number] MRI /MRI BRAIN WO Exam Date: 06/28/17 [...] volume loss. 2. Small chronic ischemic insult centere d in the left eason radiata. Signed by: Dr. Elmira Vega M.D. on 06/28/20 10:31 PM Dictated By: ELMIRA VEGA MD 30 Transcribed By: APOORVA on 06/28/172230 COPY TO: CARISSA ROSAS MD CHEST SINGLE (PORTABLE) [place] [address] Patient Name: NOEMY ARGUETA MR #: [id number] : 1935 Age/Sex: 82/M Req #: [id number] Adm Physician: Ordered by: ABEL DE LEÓN Report #: [id number] Location: ER Room/Bed: Procedure: [id number] DX/CHEST SINGLE (PORTABLE) Ex am Date: 06/28/17 [...] TO: ABEL DE LEÓN CT BRAIN WO [place] [address] Patient Name: NOEMY ARGUETA MR #: [id number] : 1935 Age/Sex: 82/M Req #: [id number] [facility] [place] Physician: Ordered by: ABEL DE LEÓN Report #: [id number] Location: ER Room/Bed: Procedure: [id number] CT/CT BRAIN WO Exam Date: Exam Time: 1105 REPORT STATUS: Signed Examination: CT BRAIN WITHOUT CONTRAST History:Dizziness; nausea; vertigo; loss of balance. Comparison studies:Head CT dated 06/18/2017. Technique: Axial images were obtained from the skull base to the vertex. Coronal and sag ittal images reconstructed from the axial data. Intravenous contrast: None Findings: Scalp: No abnormalities. Bones: No fractures, blastic or lyti c lesions. Brain sulci: Appropriate for age. Ventricles: Normal in size a nd configuration. No hydrocephalus. Extra-axial space: No abnormalities. Parenchyma: No abnormal densities. No masses, hemorrhage, or acute or chronic cortical vascular insults. Sellar/suprasellar region: CSF filled. Craniocervical junction: Patent foramen magnum. No Chiari one malformation. Incidental findings: None. Impression: No new or acute intracra nial abnormalities. No change from prior head CT dated 06/18/2017. Signed by: Dr. Luna Lyons M.D. on 06/28/2017 11:36 AM Dictated By: CALLIE LOYA MD 1136 COPY TO: SALTY DE LEÓN CT BRAIN WO [place] [address] Patient Name: NOEMY ARGUETA MR #: [id number] : 1935 Age/Sex: 82/M Req #: [id number] Adm Physician: Ordered by: MELANIE PRAKASH MD Report #: [id number] Location: ER Room/Bed: Procedure: [id number] CT/CT BRAIN WO Exam Date: Exam Time: 1746 REPORT STATUS: Signed Examination: CT BRAIN WITHOUT [...] acute intracranial abn ormalities. Signed by: Dr. Luna Lyons M.D. on 06/18/2017 6:19 PM Dictated By: LUNA LOYA MD 18 Transcribed By: APOORVA on 06/18/171818 COPY TO: MELANIE PRAKASH MD
--- OUTSIDE RECORDS SUMMARY | 2020-04-29 05:35 | XMS REPORT | Continuity of Care Document ---
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 Name Role Phone DAVID PORTER PCP AG [...] Number Effective Date Expiration Date Benigno quijano [facility] [id number] 2018 00:00:00 [facility] Problems Condition Name Condition Details Condition Category Status Onset Date Resolution Date Last Treatment Date Treating Clinician Comments Source Closed fracture of one rib Closed fracture of one rib Problem Active 2018-02-22 00:00:00 [facility] (LUF/IZAIAH/SA) Arthralgia of bilateral temporomandibular joint Arthra [...] [facility] Dizziness Dizziness Problem Active [facility] Foreign body in esophagus Esophageal foreign body Problem Active [facility] Fever Fever Problem Active [facility] Weakness Generalized weakness Problem Active [facility] Pill esophagitis Pill esophagitis Problem Active [facility] Pneumonia Pneumonia Problem Active [facility] Knee pain, right Knee pain, right Active Problem 04/24/2020 Keegan Ingram Problem Active 2020-04-24 02:45:06 [facility] Ankylosing spondylitis of multiple sites in spine Ankylosing spondylitis of multiple sites in spine Active Problem 04/24/2020 Keegan Ingram Problem Active 2020-04-24 02:45:06 [facility] Long-term use of high-risk medication Long-term use of high-risk medication Active Problem 04/24/2020 Keegan Ingram Problem Active 2020-04-24 02:45:06 [facility] Vitamin D deficiency Kamila min D deficiency Active Problem 04/24/2020 Keegan Ingram Problem Active 2020-04-24 02:45:06 [facility] Avi Nausea Naus ea Active Problem 04/24/2020 Keeganjona Ingram Problem Active 2020-04-24 02:45:06 John Cárdenas Abdominal pain Abdo tammy pain Active Problem 04/24/2020 Keegan Ingram Problem Active 2020-04-24 02:45:06 John Cárdenas Shoulder pain, right Shou lder pain, right Active Problem 04/24/2020 Keeganjona Ingram Problem Active 2020-04-24 02:45:06 John Cárdenas Neck mass Neck mass Active Problem 04/24/2020 Keegan Ingram Problem Active 2020-04-24 02:45:06 [facility] Avi Dizziness Dizz iness Active Problem 04/24/2020 Keegan Ingram Problem Active 2020-04-24 02:45:06 [facility] 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 Active Problem 01/25/2018 Philippe Lryennifer Problem Active 2018-01-25 02:45:48 [facility] Bilateral lower extremity edema Bilateral lower extremity edema Active Problem 01/25/2018 Philippe Lroudi Problem Active 2018-01-25 02:45:48 [facility] Venous insufficiency Veno us insufficiency Active Diagnosis 03/07/2017 Philippe Radha Gibson Diagnosis Active 2017-03-07 02:45 :07 [facility] Essential hypertension Esse ntial hypertension Active Problem 01/25/2018 Philippe Finleyamanda Problem Active 16-01-28 02:45:48 [facility] Obesity (BMI 30.0-34.9) Obes ity (BMI 30.0-34.9) Active Problem 01/25/2018 Mohdixon Lroudi Problem Active 16-01-28 02:45:48 [facility] Osteoarthritis, unspecified osteoarthritis type, unspe cified site Osteoarthritis, unspecified osteoarthritis type, unspecified site Active Problem 01/25/2018 Mohdixon Finleydi Problem Active 16-01-28 02:45:48 [facility] Family history of abdominal aortic aneurysm (AAA) [...] 01/25/2018 Philippe Gibson Problem Active 2018-01-25 02:45:48 [facility]vi Fatigue Fati shane Active Diagnosis 12/19/2017 Keegan Ingram Diagnosis Active 2017-12-19 02:46:26 [facility] Avi Encounter for screening for other viral diseases Encounter for screening for other viral diseases Active Diagnosis 09/02/2019 Keegan Ingram Diagnosis Active 2019-09-02 03:46:32 [facility] 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 Active Diagnosis 09/02/2019 Keegan Ingram Diagnosis Active 2019-09-02 03:46:32 [facility] Encounter for screening for other bacterial diseases Encounter for screening for other bacterial diseases Active Diagnosis 09/02/2019 Keegan Ingram Diagnosis Active 2019-09-02 03:46:32 [facility] Screening for tuberculosis Scr eening for tuberculosis Active Diagnosis 09/02/2019 Keegan Ingram Diagnosis Active 2019-09-02 03:46:32 [facility] Chronic pain Bulk Filler juwan pain Active Problem 04/24/2020 Keegan Ingram Problem Active 2020-04-24 02:45:06 [facility] Immunocompromised state Immu nocompromised state Active Problem 04/24/2020 Keegan Ingram Problem Active 2020-04-24 02 :45:06 [facility] Avi Allergies, Adverse Reactions, Alerts Allergy Name Allergy Type Status Severity Reaction(s) Onset Date Inacti ve Date Treating Clinician Comments Source Remicade Remicade Active Info Not Available 2020-04-14 00:00:00 John Avi Mirapex Mirapex Active nausea/emesis 2020-04-14 00:00:00 [facility] latex DA Active U 2019-01-21 00:00:00 [facility] Latex Allergy to Substance Active RASH 2017-06-28 00:00:00 [facility] NJayAChaz Shepherd Active Info Not Available 2017-02-28 00:00:00 [facility] latex DA Active U 2013-02-17 00:00:00 [facility] Latex Gloves Adverse Reaction Active Info Not Available [facility] Social History Smoking Status Start Date Stop Date Source Never smoker [facility] (LUF/IZAIAH/SA) Medications Ordered Medication Name Filled Medication Name Start Date Stop Da te Current Medication? Ordering Clinician Indication Dosage Frequency Signature (SIG) Comments Components Source Medrol Dose Davis 2020-04-22 00:00:00 Yes Gregory Ingram as directed [facility] Nexium 2020-04-19 02:46:07 Yes Milad Rodriguez TAKE ONE CAPSULE BY MOUTH EVERY DAY [facility] Atenolol 2020-04-19 02:46:07 Yes Milad Rodriguez 1 t ablet [facility] Gabapentin 2020-04-19 02:46:07 Yes Milad Rodriguez 1 tablet [facility] Vitamin D 2020-04-19 02:46:07 Yes Milad Rodriguez 1 tablet [facility] Tylenol/Codeine #3 2020-04-14 00:00:00 Yes Milad Rodriguez 1 tablet as needed [facility] Chlordiazepoxide HCl 2020-04-14 00:00:00 Yes Milad Rodriguez 1 capsule [facility] Tramadol HCl 2019-08-20 00:00:00 Yes Maria E Martines 1 tablet as needed [facility] Medrol Dose Davis 2018-12-01 00:00:00 Yes Evaristo Olguin as directed [facility] Chlordiazepoxide HCl 2018-09-09 00:00:00 Yes Maria E Martines 1 capsule [facility] Chlordiazepoxide HCl 2018-08-12 00:00:00 Yes Evaristo Botellosaf 1 capsule [facility] PredniSONE 2018-08-05 00:00:00 Yes Evaristo Rolonf 1-2 tabs prn for arthritis flare up [facility] Zofran 2018-08-05 00:00:00 Yes Milad Rodriguez 1 tab let [facility] Nasacort Nasacort 2018-07-31 00:00:00 Yes Duane Mcdonnell 2 puffs in each nostril [facility] Ofloxacin Ofloxacin 2018-07-31 00:00:00 2018-08-06 00:00:00 No Jayla Mcdonnell 4 drops into affected ear [facility] Gabapentin 2018-06-17 02:46:27 Yes Ronala Clau 1 tablet [facility] Tylenol/Codeine #3 2018-06-10 00:00:00 Yes Maria E Martines 1 tablet as needed [facility] Meclizine HCl 2018-06-10 00:00:00 Yes Milad Rodriguez 1 tablet as needed [facility] Atenolol 2018-01-25 02:45:48 Yes Mohamed Jeroudi 1 tablet [facility] Azelastine HCl 2018-01-25 02:45:48 Yes Mohamed Jeroudi 1 puff in each nostril [facility] Hydrocodone-Acetaminophen 2018-01-25 02:45:48 Yes Mohame d Jeroudi 1 tablet as needed [facility] Omeprazole 2018-01-25 02:45:48 Yes Mohamed Jeroudi 1 capsule [facility] Triamterene-HCTZ 2018-01-25 02:45:48 Yes Mohamed Jeroudi 1 tablet in the morning [facility] Gabapentin 2018-01-25 02:45:48 Yes Mohamed Jeroudi 1 tablet [facility] Asmanex 14 Metered Doses 2018-01-25 02:45:48 Yes Mohamed Jeroudi 1 puff in the evening [facility] Pramipexole Dihydrochloride 2018-01-25 02:45:48 Yes Moha med Jeroudi 1 tablet before bedtime [facility] Stiolto Respimat 2018-01-25 02:45:48 Yes Mohamed Jeroudi 2 puffs [facility] Vitamin D (Ergocalciferol) 2017-12-17 00:00:00 Yes Gretta Ingram 1 capsule [facility] Ciprodex Ciprodex 2017-12-11 00:00:00 Yes Duane Mcdonnell not defined [facility] Simponi Aria 2017-09-02 00:00:00 Yes Milad Rodriguez as directed [facility] PredniSONE 2017-08-20 00:00:00 Yes Gregory Melgarer 1-2 tabs PRN [facility] PredniSONE 2017-08-20 00:00:00 Yes Evaristo Rolonf 1-2 tabs PRN [facility] Atenolol 2017-07-23 02:45:17 Yes Mohamed Jeroudi 1 tablet [facility] Gabapentin 2017-07-23 02:45:17 Yes Mohamed Jeroudi 1 tablet [facility] Pramipexole Dihydrochloride 2017-07-23 02:45:17 Yes Killian med Jeroudi 1 tablet before bedtime [facility] Triamterene-HCTZ 2017-07-23 02:45:17 Yes Mohamed Jeroudi 1 tablet in the morning [facility] Omeprazole 2017-07-23 02:45:17 Yes Mohamed Jeroudi 1 capsule [facility] Azelastine HCl 2017-07-23 02:45:17 Yes Chasidyamed Jeroudi 1 puff in each nostril [facility] Asmanex 14 Metered Doses 2017-07-23 02:45:17 Yes Chasidyamed Jeroudi 1 puff in the evening [facility] Hydrocodone-Acetaminophen 2017-07-23 02:45:17 Yes Chasidyame d Jeroudi 1 tablet as needed [facility] Stiolto Respimat 2017-07-23 02:45:17 Yes Philippe Lroudi 2 puffs [facility] Ranitidine HCl Ranitidine HCl 2017-07-16 00:00:00 Yes Duane baezon 1 tablet [facility] Tylenol/Codeine #3 2016-12-28 00:00:00 Yes Evaristo Rolon f 1 tablet as needed [facility] Acetaminophen 300 MG / Codeine Phosphate 60 MG Oral Ta blet Acetaminophen 300 MG / Codeine Phosphate 60 MG Oral Tablet Yes 1tab QID [facility] (LUF/IZAIAH/SA) Atenolol 50 MG Oral Tablet Atenolol 50 MG Oral Tablet Yes 50mg [facility] (LUF/IZAIAH/SA) gabapentin 600 MG Oral Tablet gabapentin 600 MG Oral Tablet Yes 600mg TID [facility] (LUF/IZAIAH/SA) Gabapentin Gabapentin Yes Duane Mcdonnell not defin ed [facility] Triamterene Triamterene Yes Duane Mcdonnell not def ined [facility] Atenolol Atenolol Yes Duane Mcdonnell not defined [facility] Acetamin Acetamin Yes Duane Mcdonnell not defined [facility] Atenolol 50 Mg Tablet Atenolol 50 Mg Tablet Yes 50 Daily [facility] Azithromycin (Z-Davis) 250 Mg Tablet Azithromycin (Z-Davis) 250 Mg Tablet Yes 250 Use As Directed [facility] Pantoprazole Sodium (Protonix) 40 Mg Tablet. Pantopr azole Sodium (Protonix) 40 Mg Tablet. Yes 40 Daily [facility] Gabapentin 300 Mg Capsule, 600 Mg Oral Gabapentin 300 Mg Capsule , 600 Mg Oral 2019-05-15 00:00:00 No 600 Three Times A Day [facility] Ropinirole Hcl 0.5 Mg Tablet, 0.5 Mg Oral Ropinirole H cl 0.5 Mg Tablet, 0.5 Mg Oral 2019-05-15 00:00:00 No .5 Bedtime [facility] Meclizine Hcl 12.5 Mg Tablet, 25 Mg Oral Meclizine Hcl 12.5 Mg Tablet, 25 Mg Oral 2019-03-11 00:00:00 No 25 Daily [facility] Pramipexole Di-Hcl (Pramipexole Dihydrochloride) 0.25 Mg Tablet, 0.5 Tab Oral Pramipexole Di-Hcl (Pramipexole Dihydrochloride) 0.25 Mg Tablet, 0.5 Tab Oral 2019-03-11 00:00:00 No .5 Twice A Day [facility] Triamterene/Hctz 75MG/50MG , Oral Triamterene/Hctz 75MG/50MG , Oral 2019-03-11 00:00:00 No Daily [facility] Vital Signs Vital Name Observation Time Observation Value Comments Source Weight 2020-04-14 20:00:00 [facility] Height 2020-04-14 20:00:00 [facility] Temperature Oral (F) 2020-04-14 20:00:00 97.9 F [facility] Heart Rate 2020-04-14 20:00:00 [facility] Diastolic (mm Hg) 2020-04-14 20:00:00 [facility] [place] Systolic (mm Hg) 2020-04-14 20:00:00 [facility]ando [facility] [place] Weight 2019-08-20 20:30:00 [facility] Height 2019-08-20 20:30:00 [facility] [place] Temperature Oral (F) 2019-08-20 20:30:00 97.7 F [facility] Heart Rate 2019-08-20 20:30:00 [facility] [place] Diastolic (mm Hg) 2019-08-20 20:30:00 [facility] [place] Systolic (mm Hg) 2019-08-20 20:30:00 Armando rial Avi Weight 2019-06-16 18:45:00 [facility] Height 2019-06-16 18:45:00 [facility] Temperature Oral (F) 2019-06-16 18:45:00 98.9 F [facility] [place] Heart Rate 2019-06-16 18:45:00 [facility] Diastolic (mm Hg) 2019-06-16 18:45:00 [facility] [place] Systolic (mm Hg) 2019-06-16 18:45:00 [facility]ando [facility] [place] Weight 2019-01-05 16:45:00 [facility] Height 2019-01-05 16:45:00 [facility] [place] Temperature Oral (F) 2019-01-05 16:45:00 96.8 F [facility] Heart Rate 2019-01-05 16:45:00 [facility] [place] Diastolic (mm Hg) 2019-01-05 16:45:00 [facility] Systolic (mm Hg) 2019-01-05 16:45:00 Armando rial [place] Weight 2018-11-07 16:15:00 [facility] Height 2018-11-07 16:15:00 [facility] [place] Temperature Oral (F) 2018-11-07 16:15:00 96.6 F [facility] [place] Heart Rate 2018-11-07 16:15:00 [facility] Diastolic (mm Hg) 2018-11-07 16:15:00 [facility] Systolic (mm Hg) 2018-11-07 16:15:00 Armando rial [facility]vi Weight 2018-11-04 19:15:00 [facility] Height 2018-11-04 19:15:00 [facility] [place] Temperature Oral (F) 2018-11-04 19:15:00 98.0 F [facility] [place] Heart Rate 2018-11-04 19:15:00 [facility] Diastolic (mm Hg) 2018-11-04 19:15:00 [facility] Systolic (mm Hg) 2018-11-04 19:15:00 Armando [facility] [place] Weight 2018-09-09 19:00:00 [facility] Height 2018-09-09 19:00:00 [facility] [place] Temperature Oral (F) 2018-09-09 19:00:00 98.8 F [facility] Heart Rate 2018-09-09 19:00:00 [facility] Diastolic (mm Hg) 2018-09-09 19:00:00 [facility] [place] Systolic (mm Hg) 2018-09-09 19:00:00 Armando rial [facility]vi Weight 2018-08-12 21:00:00 [facility] Height 2018-08-12 21:00:00 [facility] Temperature Oral (F) 2018-08-12 21:00:00 97.2 F [facility] [place] Heart Rate 2018-08-12 21:00:00 [facility] Diastolic (mm Hg) 2018-08-12 21:00:00 [facility] Systolic (mm Hg) 2018-08-12 21:00:00 Armando rial Avi Weight 2018-08-05 19:00:00 [facility] [place] Height 2018-08-05 19:00:00 [facility] Temperature Oral (F) 2018-08-05 19:00:00 98.5 F [facility] [place] Heart Rate 2018-08-05 19:00:00 [facility] Diastolic (mm Hg) 2018-08-05 19:00:00 [facility] [place] Systolic (mm Hg) 2018-08-05 19:00:00 Armando [facility] [place] Weight 2018-06-10 18:30:00 [facility] [place] Height 2018-06-10 18:30:00 [facility] Temperature Oral (F) 2018-06-10 18:30:00 97.0 F [facility] Heart Rate 2018-06-10 18:30:00 [facility] [place] Diastolic (mm Hg) 2018-06-10 18:30:00 [facility] [place] Systolic (mm Hg) 2018-06-10 18:30:00 Armando mitzil [place] Body Temperature 2018-02-22 12:32:00 98.2 F [facility] (LUF/IZAIAH/SA) Respiratory Rate 2018-02-22 12:32:00 20 /min [facility] (LUF/IZAIAH/SA) O2% BldC Oximetry 2018-02-22 12:32:00 98 % [facility] (LUF/IZAIAH/SA) BP Systolic 2018-02-22 12:32:00 128 mm[Hg] [facility] (LUF/IZAIAH/SA) BP Diastolic 2018-02-22 12:32:00 71 mm[Hg] [facility] (LUF/IZAIAH/SA) Height 2018-02-22 12:32:00 71 in [facility] (LUF/IZAIAH/SA) Weight Measured 2018-02-22 12:32:[address] [facility] (LUF/IZAIAH/SA) BMI (Body Mass Index) 2018-02-22 12:32:00 33.1 [facility] (LUF/IZAIAH/SA) Weight 2018-02-13 18:15:00 [facility] Height 2018-02-13 18:15:00 [facility] [place] Temperature Oral (F) 2018-02-13 18:15:00 97.3 F [facility] Heart Rate 2018-02-13 18:15:00 [facility] Diastolic (mm Hg) 2018-02-13 18:15:00 [facility] [place] Systolic (mm Hg) 2018-02-13 18:15:00 Armando rial [place] Weight 2017-12-16 20:00:00 [facility] Height 2017-12-16 20:00:00 [facility] Temperature Oral (F) 2017-12-16 20:00:00 98.2 F [facility] Heart Rate 2017-12-16 20:00:00 [facility] Diastolic (mm Hg) 2017-12-16 20:00:00 [facility] Systolic (mm Hg) 2017-12-16 20:00:00 Armando rial [facility]vi Weight 2017-10-21 21:30:00 [facility] [place] Height 2017-10-21 21:30:00 [facility] Temperature Oral (F) 2017-10-21 21:30:00 99.0 F [facility] [place] Heart Rate 2017-10-21 21:30:00 [facility] [place] Diastolic (mm Hg) 2017-10-21 21:30:00 [facility] [place] Systolic (mm Hg) 2017-10-21 21:30:00 Armando rial [facility]vi Weight 2017-02-28 18:00:00 [facility] Height 2017-02-28 18:00:00 [facility] Temperature Oral (F) 2017-02-28 18:00:00 97.3 F [facility] [place] Heart Rate 2017-02-28 18:00:00 [facility] Diastolic (mm Hg) 2017-02-28 18:00:00 [facility] [place] Systolic (mm Hg) 2017-02-28 18:00:00 Armando [facility] [place] Weight 2017-01-31 20:00:00 [facility] [place] Height 2017-01-31 20:00:00 [facility] [place] Temperature Oral (F) 2017-01-31 20:00:00 97.6 F [facility] Heart Rate 2017-01-31 20:00:00 [facility] [place] Diastolic (mm Hg) 2017-01-31 20:00:00 [facility] Systolic (mm Hg) 2017-01-31 20:00:00 Armando [facility] [place] Weight 2017-01-16 20:30:00 [facility] [place] Height 2017-01-16 20:30:00 [facility] Temperature Oral (F) 2017-01-16 20:30:00 98.0 F [facility] [place] Heart Rate 2017-01-16 20:30:00 [facility] [place] Diastolic (mm Hg) 2017-01-16 20:30:00 [facility] [place] Systolic (mm Hg) 2017-01-16 20:30:00 Armando rial [place] Procedures Procedure Date / Time Performed Performing Clinician [facility] e Computed tomography of brain without radiopaque contrast 201 06-07-14 00:00:00 CINDY BURROWS [facility] Computed tomography of cervical spine without contrast 05-13 00:00:00 CINDY BURROWS [facility] REMOVE PILONIDAL CYST EXTEN 2019-03-17 00:00:00 ELMIRA HUGHES [facility] X-ray of chest, two views 2019-03-11 00:00:00 ELMIRA HUGHES [facility] Encounters Start Date/Time End Date/Time Encounter Type Admission Type Attendi [facility] Care Department Encounter ID Source 2020-04-22 09:51:00 2020-04-22 09:51:00 Outpatient Gregory CALERO [id number] Keegan Ingram MD 2020-04-14 15:00:00 2020-04-14 15:00:00 Outpatient Gregory Ingram MD [place] [id number] Keegan Ingram MD 2020-03-14 13:57:00 2020-03-14 13:57:00 Outpatient Gregory CALERO [id number] Keegan Ingram MD 2019-11-09 15:05:00 2019-11-09 15:05:00 Outpatient MD GALILEA Cazares MD [place] [id number] Keegan Ingram MD 2019-10-28 16:53:00 2019-10-28 16:53:00 Outpatient MD GALILEA Cazares MD PA [id number] Keegan Ingram MD 2019-08-20 14:53:00 2019-08-20 14:53:00 Outpatient MD GALILEA Cazares MD [place] [id number] Keegan Ingram MD 2019-08-20 14:30:00 2019-08-20 14:30:00 Outpatient Gregory Ingram MD PA [id number] Keegan Ingram MD 2019-06-16 13:45:00 2019-06-16 13:45:00 Outpatient Gregory Ingram MD PA [id number] Keegan Ingram MD 2019-06-03 12:40:00 2019-06-03 12:40:00 Outpatient MD GALILEA Villa MD [place] [id number] Keegan Ingram MD 2019-05-20 11:17:00 2019-05-20 11:17:00 Outpatient Gregory Ingram MD PA [id number] Keegan Ingram MD 2019-05-14 02:17:00 2019-05-15 18:35:00 Discharged Inpatient (obs) 1 [facility] [id number] [facility] 2019-03-30 14:59:00 2019-03-30 14:59:00 Outpatient Gregory Ingram MD PA [id number] Keegan Ingram MD 2019-03-17 07:14:00 2019-03-17 07:14:00 Registered Surgical Day Car e EL[facility]IRA [facility] [id number] [facility] 2019-03-04 16:27:00 2019-03-04 16:27:00 Outpatient Gregory Ingram MD PA [id number] Keegan Ingram MD 2019-01-08 10:55:00 2019-01-08 10:55:00 Outpatient [facility] [id number] [facility] 2019-01-05 11:45:00 2019-01-05 11:45:00 Outpatient Gregory Ingram MD PA [id number] Keegan Ingram MD 2018-12-01 16:00:00 2018-12-01 16:00:00 Outpatient Gregory Ingram MD PA [id number] Keegan Ingram MD 2018-11-28 13:18:00 2018-11-28 13:18:00 Outpatient Gregory Ingram MD PA [id number] Keegan Ingram MD 2018-11-07 10:15:00 2018-11-07 10:15:00 Outpatient Gregory Ingram MD PA [id number] Keegan Ingram MD 2018-11-04 13:15:00 2018-11-04 13:15:00 Outpatient Gregory Ingram MD PA [id number] Keegan Ingram MD 2018-09-09 13:00:00 2018-09-09 13:00:00 Outpatient Gregory Ingram MD PA [id number] Keegan Ingram MD 2018-08-26 14:53:00 2018-08-26 14:53:00 Outpatient Gregory CALERO [id number] Keegan Ingram MD 2018-08-12 15:00:00 2018-08-12 15:00:00 Outpatient Gregory CALERO [id number] Keegan Ingram MD 2018-08-05 13:00:00 2018-08-05 13:00:00 Outpatient Gregory CALERO [id number] Keegan Ingram MD 2018-07-31 10:00:00 2018-07-31 10:00:00 Outpatient [facility] [id number] [facility] 2018-07-30 15:49:00 2018-07-30 15:49:00 Outpatient [facility] ENT [facility] [id number] [facility] 2018-06-23 18:55:00 2018-06-23 18:55:00 Outpatient [facility] [id number] [facility] 2018-06-10 14:46:00 2018-06-10 14:46:00 Outpatient Gregory CALERO [id number] Keegan Ingram MD 2018-06-10 13:30:00 2018-06-10 13:30:00 Outpatient Gregory CALERO [id number] Keegan Ingram MD 2018-02-22 12:13:00 2018-02-22 14:30:00 FX 1 RIB LT SIDE INITIAL CL OS FX 1 JOE EASLEY [facility], [address] [place] [address], [place] [address] [facility] [id number] [facility] (LUF /IZAIAH/SA) 2018-02-13 13:15:00 2018-02-13 13:15:00 Outpatient Gregory CALERO [id number] Keegan Ingram MD 2018-02-11 15:39:00 2018-02-11 15:39:00 Outpatient Gregory Ingram MD PA [id number] Keegan Ingram MD 2017-12-17 12:56:00 2017-12-17 12:56:00 Outpatient Gregory CALERO [id number] Keegan Ingram MD 2017-12-16 15:00:00 2017-12-16 15:00:00 Outpatient Gregory Ingram MD PA [id number] Keegan Ingram MD 2017-12-11 13:20:00 2017-12-11 13:20:00 [facility]patient [facility] [facility] [id number] [facility] 2017-12-04 13:00:00 2017-12-04 13:00:00 Outpatient [facility] [id number] [facility] 2017-10-22 08:34:00 2017-10-22 08:34:00 Outpatient Gregory Ingram MD PA [id number] Keegan Ingram MD 2017-10-21 15:30:00 2017-10-21 15:30:00 Outpatient Gregory Ingram MD PA [id number] Keegan Ingram MD 2017-02-28 13:00:00 2017-02-28 13:00:00 Outpatient Philippe Gibson MD PA [id number] [employer] 2017-02-12 11:00:00 2017-02-12 11:00:00 Outpatient Philippe Gibson MD PA [id number] [employer] 2017-01-31 15:00:00 2017-01-31 15:00:00 Outpatient Philippe Gibson MD PA [id number] [employer] 2017-01-16 15:30:00 2017-01-16 15:30:00 Outpatient Philippe Gibson MD PA [id number] [employer] Results Test Description Test Time Test Comments Results Result Comments Source CHEST SINGLE (PORTABLE) 2020-04-02 07:07:00 [facility] [address] [address] Patient Name: NOEMY ARGUETA MR #: [id number] : 1935 Age/Sex: 84/M Req #: [id number] Adm Physician: AG JACOBSEN MD Ordered by: ANITHA POLANCO MD, MD Report #: [id number] Location: [facility] Room/Bed: [place] [address] Procedure: [id number] DX/CHEST SINGLE (PORTABLE) Exam Date: 04/02/20 Exam [...] ANITHA POLANCO CT BRAIN WO 2020-04-01 11:20:00 [place] [address] Patient Name: NOEMY ARGUETA MR #: [id number] : 1935 Age/Sex: 84/M Req #: [id number] [facility] Physician: Ordered by: ANITHA POLANCO MD, MD Report #: [id number] Location: ER Room/Bed: Procedure: [id number] CT/CT BRAIN WO Exam Date: 04/01/20 Exam [...] ANITHA POLANCO CHEST SINGLE (PORTABLE) 2020-04-01 11:17:00 [place] [address] Patient Name: NOEMY ARGUETA MR #: [id number] : 1935 Age/Sex: 84/M Req #: [id number] Adm Physician: Ordered by: ANITHA POLANCO MD, MD Report #: [id number] Location: ER Room/Bed: Procedure: [id number] DX/CHEST SINGLE (PORTABLE) Exam Date: 04/01/20 Exam Time: 1025 REPORT STATUS: Signed EXAMINATION: CHEST SINGLE (PORTABLE) INDICATION: Y ERMD ORDER [id number] Y COMPARISON: 03/13/2020 FINDINGS: AP view [...] 18:24:00 [facility] [address] [address] Patient Name: NOEMY ARGUETA MR #: [id number] : 1935 Age/Sex: 84/M Req #: [id number] Adm Physician: Ordered by: PER AU MD Report #: [id number] Location: ER Room/Bed: Procedure: [id number] DX/CHEST SINGLE (PORTABLE) Exam Date: 03/13/20 Exam [...] Test Item Bedside Glucose (test code = 60493-3) 123 70-120 H Meter ID: [id number] [facility] CenterCl[facility] Platelets 2019-05-15 08:26:00* Test Item Value Reference Range Interpretation Comments Clumped Platelets (test code = 7796-6) NONE NONE [facility] Qgpju9129-08-57 05:59:00* Test Item Value Reference Range Interpretation Comments Sodium Level (test code = 2951-2) 141 136-145 [facility]lake[facility]assium Fnbtl3929-30-25 05:59:00* Test Item Value Reference Range Interpretation Comments Potassium Level (test code = 2823-3) 3.4 3.5-5.1 L [facility]lakeChloride Wuvwt4855-68-22 05:59:00* Test Item Value Reference Range Interpretation Comments Chloride Level (test code = 2075-0) 110 98-107 H [facility] SouthlakeCarbon Dioxide Eehvc2863-07-13 05:59:00* Test Item Value Reference Range Interpretation Comments Carbon Dioxide Level (test code = 2028-9) 23 22-29 [facility] SouthlakeAnion Osu0835-71-26 05:59:00* Test Item Value Reference Range Interpretation Comments Anion Gap (test code = 45015-4) 11.4 8-16 [facility] SouthlakeBlood Urea Xqksylyh6480-26-99 05:59:00* Test Item Value Reference Range Interpretation Comments Blood Urea Nitrogen (test code = 3094-0) 15 7-26 [facility] SouthlakeCreatinine2019-08-16 05:59:00* Test Item Value Reference Range Interpretation Comments Creatinine (test code = 2160-0) 0.96 0.72-1.25 [facility]lakeBUN/Creatinine Lnxwm5073-25-12 05:59:00* Test Item Value Reference Range Interpretation Comments BUN/Creatinine Ratio (test code = 3097-3) 16 6-25 [facility] SouthlakeEstimat Glomerular Filtration Rate 2019-05-15 05:59:00* Test Item Value Reference Range Interpretation Comments Estimat Glomerular Filtration Rate (test code = 974135449) > 60 >60 Ranges were taken from the National Kidney Disease Education Program and the [facility] Kidney Foundation literature.Reference ranges:60 or greater: Yumkoj64-29 ( for 3 consecutive months): Chronic kidney disease 15 or less: Kidney failureTexas [facility] SouthlakeGlucose Cqbqa7904-50-20 05:59:00* Test Item Value Reference Range Interpretation Comments Glucose Level (test code = QUJ3901) 122 74-118 H [facility] SouthlakeCalcium Tjdff8374-64-37 05:59:00* Test Item Value Reference Range Interpretation Comments Calcium Level (test code = 18925-5) 7.6 8.4-10.2 L [facility] SouthlakeTotal Bjgdykwhw7251-57-21 05:59:00* Test Item Value Reference Range Interpretation Comments Total Bilirubin (test code = 1975-2) 0.3 0.2-1.2 [facility] SouthlakeAspartate Amino Transf (AST/SGOT) 2019-05-15 05:59:00* Test Item Value Reference Range Interpretation Comments Aspartate Amino Transf (AST/SGOT) (test code = Aspartate Amino Transf (AST/SGOT)) 15 5-34 [facility] SouthlakeAlanine Aminotransferase (ALT/SGPT) 2019-05-15 05:59:00* Test Item Value Reference Range Interpretation Comments Alanine Aminotransferase (ALT/SGPT) (test code = 1742-6) 6 0-55 [facility] SouthlakeTotal Uyluplv6299-85-78 05:59:00* Test Item Value Reference Range Interpretation Comments Total Protein (test code = 2885-2) 4.8 6.5-8.1 L [facility] SouthlakeAlbumin2019-08-16 05:59:00* Test Item Value Reference Range Interpretation Comments Albumin (test code = 1751-7) 2.1 3.5-5.0 L [facility] SouthlakeGlobulin2019-08-16 05:59:00* Test Item Value Reference Range Interpretation Comments Globulin (test code = 99648-4) 2.7 2.3-3.5 [facility] SouthlakeAlbumin/Globulin Wzbwu4529-33-95 05:59:00 * Test Item Value Reference Range Interpretation Comments Albumin/Globulin Ratio (test code = 1759-0) 0.8 0.8-2.0 [facility] SouthlakeAlkaline Gcwotlhmbxq9054-97-16 05:59:00* Test Item Value Reference Range Interpretation Comments Alkaline Phosphatase (test code = 6768-6) 56 40-150 [facility] SouthlakeWhite Blood Rzudf0298-57-37 05:58:00* Test Item Value Reference Range Interpretation Comments White Blood Count (test code = 6690-2) 7.18 4.8-10.8 [facility] SouthlakeRed Blood Cnpgd4232-24-86 05:58:00* Test Item Value Reference Range Interpretation Comments Red Blood Count (test code = 789-8) 3.55 4.3-5.7 L [facility] SouthlakeHemoglobin2019-08-16 05:58:00* Test Item Value Reference Range Interpretation Comments Hemoglobin (test code = 32479-9) 10.7 14.0-18.0 L [facility] SouthlakeHematocrit2019-08-16 05:58:00* Test Item Value Reference Range Interpretation Comments Hematocrit (test code = 4544-3) 32.4 38.2-49.6 L [facility] SouthlakeMean Corpuscular Clphcs0703-45-96 05:58:00* Test Item Value Reference Range Interpretation Comments Mean Corpuscular Volume (test code = 787-2) 91.3 81-99 [facility] SouthlakeMean Corpuscular Xmrpfhpivl0728-60-70 05:58:00* Test Item Value Reference Range Interpretation Comments Mean Corpuscular Hemoglobin (test code = 785-6) 30.1 28-32 [facility] SouthlakeMean Corpuscular Hemoglobin Concent 2019-05-15 05:58:00* Test Item Value Reference Range Interpretation Comments Mean Corpuscular Hemoglobin Concent (test code = 786-4) 33.0 31-35 [facility] SouthlakeRed Cell Distribution Irtqk0447-38-19 05:58:00* Test Item Value Reference Range Interpretation Comments Red Cell Distribution Width (test code = 29837-5) 13.7 11.7 -14.4 [facility] SouthlakePlatelet Dqfff4602-62-24 05:58:00* Test Item Value Reference Range Interpretation Comments Platelet Count (test code = 777-3) 134 140-360 L [facility] SouthlakeNeutrophils (%) (Auto)2019-05-15 05:58:00 * Test Item Value Reference Range Interpretation Comments Neutrophils (%) (Auto) (test code = 04470-4) 68.2 38.7-80.0 [facility] SouthlakeLymphocytes (%) (Auto)2019-05-15 05:58:00 * Test Item Value Reference Range Interpretation Comments Lymphocytes (%) (Auto) (test code = 736-9) 19.8 18.0-39.1 [facility] SouthlakeMonocytes (%) (Auto)2019-05-15 05:58:00* Test Item Value Reference Range Interpretation Comments Monocytes (%) (Auto) (test code = 5905-5) 9.9 4.4-11.3 [facility]lakeEosinophils (%) (Auto)2019-05-15 05:58:00 * Test Item Value Reference Range Interpretation Comments Eosinophils (%) (Auto) (test code = 713-8) 1.3 0.0-6.0 [facility] SouthlakeBasophils (%) (Auto)2019-05-15 05:58:00* Test Item Value Reference Range Interpretation Comments Basophils (%) (Auto) (test code = 706-2) 0.4 0.0-1.0 [facility] SouthlakeIM GRANULOCYTES %2019-05-15 05:58:00* Test Item Value Reference Range Interpretation Comments IM GRANULOCYTES % (test code = IM GRANULOCYTES %) 0.4 0.0- 1.0 [facility] SouthlakeNeutrophils # (Auto)2019-05-15 05:58:00* Test Item Value Reference Range Interpretation Comments Neutrophils # (Auto) (test code = 751-8) 4.9 2.1-6.9 [facility] SouthlakeLymphocytes # (Auto)2019-05-15 05:58:00* Test Item Value Reference Range Interpretation Comments Lymphocytes # (Auto) (test code = 59529-0) 1.4 1.0-3.2 [facility] SouthlakeMonocytes # (Auto)2019-05-15 05:58:00* Test Item Value Reference Range Interpretation Comments Monocytes # (Auto) (test code = 742-7) 0.7 0.2-0.8 [facility]lakeEosinophils # (Auto)2019-05-15 05:58:00* Test Item Value Reference Range Interpretation Comments Eosinophils # (Auto) (test code = 711-2) 0.1 0.0-0.4 [facility] SouthlakeBasophils # (Auto)2019-05-15 05:58:00* Test Item Value Reference Range Interpretation Comments Basophils # (Auto) (test code = 704-7) 0.0 0.0-0.1 [facility] SouthlakeAbsolute Immature Granulocyte (auto 2019-05-15 05:58:00* Test Item Value Reference Range Interpretation Comments Absolute Immature Granulocyte (auto (faye t code = Absolute Immature Granulocyte (auto) 0.03 0-0.1 [facility] SouthlakeBlood Vgqvapl1800-26-33 23:56:00* Test Item Value Reference Range Interpretation Comments Blood Culture (test code = 08805764) NO GROWTH AFTER 24 HOURS [facility] SouthlakeHIPS BILAT TWO VWS(+/- PELVIS)2019-05-14 17:32:00 [place] [address] Patient Name: NOEMY ARGUETA MR #: [id number] : 1935 Age/Sex: 83/M Req #: [id number] Adm Physician: HAZEL SHAW MD Ordered by: HAZEL SHAW MD Report #: [id number] Location: MED/SURG2 Room/Bed: [facility] Procedure: 8161-8795 D X/HIPS BILAT TWO VWS(+/- PELVIS) Exam [...] COPY TO: HAZEL SHAW MD Creatine Kinase RO5808-16-25 09:00:00* Test Item Value Reference Range Interpretation Comments Creatine Kinase MB (test code = 76504-1) 5.60 0-5.0 H [facility] SouthlakeTroponin P1834-29-48 09:00:00* Test Item Value Reference Range Interpretation Comments Troponin I (test code = CRB7582) 0.015 0-0.300 [facility] SouthlakeCreatine Alfenw0035-45-30 08:35:00* Test Item Value Reference Range Interpretation Comments Creatine Kinase (test code = 2157-6) 257 30-200 H [facility] SouthlakeUrine DSH8704-73-94 03:56:00* Test Item Value Reference Range Interpretation Comments Urine WBC (test code = 5821-4) 0-5 0-5 [facility] SouthlakeUrine QUE3323-78-85 03:56:00* Test Item Value Reference Range Interpretation Comments Urine RBC (test code = 26894-6) 0-5 0-5 [facility] SouthlakeUrine Vflpkvil4458-02-28 03:56:00* Test Item Value Reference Range Interpretation Comments Urine Bacteria (test code = 82424-3) RARE NONE [facility] SouthlakeUrine Epithelial Dclpt6019-16-82 03:56:00 * Test Item Value Reference Range Interpretation Comments Urine Epithelial Cells (test code = 14974-3) FEW NONE [facility] SouthlakeUrine Zqrtk2670-31-94 03:50:00* Test Item Value Reference Range Interpretation Comments Urine Color (test code = 5778-6) YELLOW YELLOW [facility] SouthlakeUrine Tjvvgpi4554-75-52 03:50:00* Test Item Value Reference Range Interpretation Comments Urine Clarity (test code = 60160-4) CLEAR CLEAR [facility] SouthlakeUrine Specific Xytztvy6017-15-74 03:50:00 * Test Item Value Reference Range Interpretation Comments Urine Specific [place] (test code = 5811-5) <=1.005 1.010-1.02 5 [facility] SouthlakeUrine sP7358-29-32 03:50:00* Test Item Value Reference Range Interpretation Comments Urine pH (test code = 97082-9) 6 5-7 [facility] SouthlakeUrine Leukocyte Asyrbmge3160-46-82 03:50:00* Test Item Value Reference Range Interpretation Comments Urine Leukocyte Esterase (test code = 82378-1) NEGATIVE NEGATIV E [facility] SouthlakeUrine Ijrvuky3243-83-53 03:50:00* Test Item Value Reference Range Interpretation Comments Urine Nitrite (test code = 92938-1) NEGATIVE NEGATIVE [facility] SouthlakeUrine Fgieydr4152-23-32 03:50:00* Test Item Value Reference Range Interpretation Comments Urine Protein (test code = 55849-7) NEGATIVE NEGATIVE [facility] SouthlakeUrine Glucose (UA)2019-05-14 03:50:00* Test Item Value Reference Range Interpretation Comments Urine Glucose (UA) (test code = 23530-5) NEGATIVE NEGATIVE [facility] SouthlakeUrine Ekaditz6880-94-88 03:50:00* Test Item Value Reference Range Interpretation Comments Urine Ketones (test code = 51016-7) NEGATIVE NEGATIVE [facility] SouthlakeUrine Zrzwubioilsm6584-18-24 03:50:00* Test Item Value Reference Range Interpretation Comments Urine Urobilinogen (test code = 45338-0) 0.2 0.2-1 [facility] SouthlakeUrine Gtbnvbyap0170-58-19 03:50:00* Test Item Value Reference Range Interpretation Comments Urine Bilirubin (test code = 1977-8) NEGATIVE NEGATIVE [facility] SouthlakeUrine Jxqbu9108-43-32 03:50:00* Test Item Value Reference Range Interpretation Comments Urine Blood (test code = 99960-1) NEGATIVE NEGATIVE [facility] SouthlakeUrine Opiates Iliohl3577-47-64 03:49:00* Test Item Value Reference Range Interpretation Comments Urine Opiates Screen (test code = 20974-5) POSITIVE NEGATIVE H ALL TESTS PERFORMED MANUALLY ON [employer] TOX/SEE TEST This test provides only a sc reen. Positive results should be repeated by a confirmatory test.[facility] Barbiturates Hnienk4589-34-89 03:49:00* Test Item Value Reference Range Interpretation Comments Urine Barbiturates Screen (test code = 204925931) NEGATIVE NEGA TIVE [facility] Phencyclidine Vozlyp6181-38-68 03:49:00* Test Item Value Reference Range Interpretation Comments Urine Phencyclidine Screen (test code = 34285-9) NEGATIVE NEGAT [facility] Amphetamines Hoyczn9940-13-05 03:49:00* Test Item Value Reference Range Interpretation Comments Urine Amphetamines Screen (test code = 72751-0) NEGATIVE NEGATI VE [facility] SouthlakeUrine Methamphetamines Upnxyz5249-54-82 03:49:00* Test Item Value Reference Range Interpretation Comments Urine Methamphetamines Screen (test code = Urine Metha mphetamines Screen) NEGATIVE NEGATIVE [facility]lakeUrine Benzodiazepines Ioxzvx1613-12-86 03:49:00* Test Item Value Reference Range Interpretation Comments Urine Benzodiazepines Screen (test code = 99079-0) POSITIVE NEG ATIVE H This test provides only a screen. Positive results should be repeated by a confi rmatory test.[facility]lakeUrine Cocaine Screen 2019-05-14 03:49:00* Test Item Value Reference Range Interpretation Comments Urine Cocaine Screen (test code = 3398-5) NEGATIVE NEGATIVE [facility] CenterU[facility] Cannabinoids Wftjxz9057-78-77 03:49:00* Test Item Value Reference Range Interpretation Comments Urine Cannabinoids Screen (test code = 62308-3) NEGATIVE NEGATI VE THESE RESULTS ARE FOR MEDICAL TREATMENT ONLYTHIS REPORT CONTAINS UNCONFIR MED SCREENING RESULTS*POSITIVE RESULTS WILL BE CONFIRMED BY REFERENCE LAB UPON R EQUEST CUT-OFFDRUG CLASS CONCENTRATION ng/mLAmphetamines 1000Methamphetamines 1000Cocaine 300Opiate 300Phencyc lidine 25Cannabinoid 50Barbiturates 300Benzodiazepine 300Methadone 300[facility] CenterUrine Methadone Rodyxw0845-92-11 03:49:00* Test Item Value Reference Range Interpretation Comments Urine Methadone Screen (test code = 85150-5) NEGATIVE NEGATIVE THESE RESULTS ARE FOR MEDICAL TREATMENT ONLYTHIS REPORT CONTAINS UNCONFIR MED SCREENING RESULTS*POSITIVE RESULTS WILL BE CONFIRMED BY REFERENCE LAB UPON R EQUEST CUT-OFFDRUG CLASS CONCENTRATION ng/mLAmphetamines 1000Methamphetamines 1000Cocaine Metabolite 300Opiate 300Phencyc lidine 25Cannabinoid 50Barbiturates 300Benzodiazepine 300Methadone 300[facility] CenterCT CERVICAL SPINE NH9570-59-50 00:55:00 [place] [address] Patient Name: NOEMY ARGUETA MR #: [id number] : 1935 Age/Sex: 83/M Req #: [id number] [facility] Physician: Ordered by: CINDY BURROWS MD Report #: [id number] Location: ER Room/Bed: Procedure: 43 CT/CT CERVICAL [...] BURROWS MD CHEST SINGLE (PORTABLE) 2019-05-14 00:53:00 [place] [address] Patient Name: NOEMY ARGUETA MR #: [id number] : 1935 Age/Sex: 83/M Req #: [id number] Adm Physician: Ordered by: CINDY BURROWS MD Report #: [id number] Location: ER Room/Bed: Procedure: 60 DX/CHEST SINGLE [...] COPY TO: CINDY BURROWS MD CT BRAIN TT8924-73-63 00:47:00 [place] [address] Patient Name: NOEMY ARGUETA MR #: [id number] : 1935 [facility]/Sex: 83[facility]M [id number] Req #: [id number] Adm Physician: Ordered by: CINDY BURROWS MD Report #: [id number] Location: ER Room/Bed: Procedure: 42 CT/CT BRAIN [...] COPY TO: CINDY BURROWS MD Lactic Acid Vzdll0389-95-12 00:36:00* Test Item Value Reference Range Interpretation Comments Lactic Acid Level (test code = Lactic Acid Level) 18.7 4.5- 19.8 [facility] 2 KBXFT4359-06-16 17:12:00 [place] [address] Patient Name: NOEMY ARGUETA MR #: [id number] : 1935 Age/Sex: 83/M Req #: [id number] Adm Physician: Ordered by: ELMIRA HUGHES MD Report #: [id number] Location: OR Room/Bed: Procedure: [id number] DX/CH EST 2 VIEWS Exam Date: 03/11/19 [...] on 03/11/191718 COPY TO: ELMIRA HUGHES MD RXFIOQ7624-61-98 17:11:00* Test Item Value Reference Range Interpretation Comments GLUBED (test code = GLUBED) 98 mg/dL 74-106 N [facility] certified liquor bridge [facility] BBKOCJ1287-32-05 12:12:00* Test Item Value Reference Range Interpretation Comments GLUBED (test code = GLUBED) 163 mg/dL 74-106 H Performed by certified liquor bridge operator [facility] ZPTXHP5801-20-13 08:00:00* Test Item Value Reference Range Interpretation Comments GLUBED (test code = GLUBED) 90 mg/dL 74-106 N Performed by certified liquor bridge operator [facility] BASIC METABOLIC LQZHB5991-96-28 05:35:00* Test Item Value Reference Range Interpretation [...] CK) 2348 IUnit/L 26-208 H BASIC METABOLIC ICCJS8414-46-80 05:16:00* Test Item Value Reference Range Interpretation [...] (CK) (test code = CK) IUnit/L 26-208 LHRIKZ5644-00-28 20:59:00* Test Item Value Reference Range Interpretation Comments GLUBED (test code = GLUBED) 125 mg/dL 74-106 H Per[facility] certified liquor bridge operator [facility] BKOAXN1465-14-49 16:45:00* Test Item Value Reference Range Interpretation Comments GLUBED (test code = GLUBED) 107 mg/dL 74-106 H Performed by certified liquor bridge operator [facility] URINALYSIS VJESSGLO4531-39-63 13:53:00* Test Item Value Reference Range Interpretation [...] FEW #/HPF NONE Urine Source? Clean CatchURINALYSIS XLRVBMYF9175-31-05 13:49:00* Test Item Value Reference Range Interpretation [...] BACU) per HPF NONE Urine Source? Clean WwgsfCSEIPS3084-91-36 12:47:00* Test Item Value Reference Range Interpretation Comments GLUBED (test code = GLUBED) 114 mg/dL 74-106 H Performed by certified liquor bridge operator [facility] TGULPE1974-70-95 08:17:00* Test Item Value Reference Range Interpretation Comments GLUBED (test code = GLUBED) 96 mg/dL 74-106 N Performed by certified liquor bridge operator [facility] BASIC METABOLIC ULBRB7969-45-69 08:12:00* Test Item Value Reference Range Interpretation [...] CK) 5208 IUnit/L 26-208 H BASIC METABOLIC NPXME4620-53-28 07:39:00* Test Item Value Reference Range Interpretation [...] (CK) (test code = CK) IUnit/L 26-208 MPBKSE6087-48-85 21:50:00* Test Item Value Reference Range Interpretation Comments GLUBED (test code = GLUBED) 117 mg/dL 74-106 H Performed by certified liquor bridge operator at [facility] - CT L-SPINE W/O ZBHNSPVL4781-44-78 19:37:00 Name: NOEMY ARGUETA [facility] : 1935 Age/S: 83 / M [address] [facility] Unit #: [id number] Loc: [place] [address] Phys: Shannon Corey MD Acct: [id number] Dis Date: Status: ADM IN PHONE #: [phone] Exam Date: 01/21/20191918 FAX #: [phone] Reason: H/o fall EXAMS: CPT CODE: [id number] CT L-SPINE W/O CONTRAST 62391 REASON FOR EXAM: H/o fall EXAM ORDER [...] W/O CONTRAST 2019-01-21 19:35:00 Name: NOEMY ARGUETA [facility] : 1935 Age/S: 83 / M [address] [facility] Unit #: [id number] Loc: [place] [address] Phys: Shannon Corey MD Acct: [id number] Dis Date: Status: ADM IN PHONE #: [phone] Exam Date: 01/21/20191918 FAX #: [phone] Reason: H/o fall EXAMS: CPT CODE: [id number] CT T-SPINE W/O CONTRAST 66778 REASON FOR EXAM: H/o fall EXAM ORDER [...] W/O CONTRAST 2019-01-21 19:34:00 Name: NOEMY ARGUETA [facility] : 1935 Age/S: 83 / M [address] [facility] Unit #: [id number] Loc: [place] [address] Phys: Shannon Corey MD Acct: [id number] Dis Date: Status: ADM IN PHONE #: [phone] Exam Date: 01/21/2019 191 FAX #: [phone] Reason: H/o fall EXAMS: CPT CODE: [id number] CT C-SPINE W/O CONTRAST 87163 REASON FOR EXAM: H/o fall EXAM ORDER [...] (1936) CTDI: DLP: PAGE 1 Signed Report [id number] 15:53:00* Test Item Value Reference Range Interpretation Comments GLUBED (test code = GLUBED) 120 mg/dL 74-106 H Performed by certified liquor bridge operator at [facility] - XR RIBS UNI W/CXR 3+V DO2307-50-60 12:17:00 FAX: Obey De Souza MD [phone] [place]: St: [facility] FAX: David Goldstein MD [phone] Name: NOEMY ARGUETA [facility] : 1935 Age/S: 83/M [address] [facility] Unit #: [id number] Loc: V.[address] [place] [address] Phys: Obey De Souza MD Acct: [id number] Dis Date: Status: ADM IN PHONE #: [phone] Exam Date: 01/20/20192254 FAX #: [phone] Reason: rib pain, fall EXAMS: CPT CODE: [id number] XR RIBS UNI W/CXR 3+[place] [address] HISTORY: Pain after fall. COMPARISON: Chest x-ray [...] and signed by: Farrukh Leavitt M.D. CC: bOey Licona MD; David Porter MD Technologist: RT OLIVIER Trnscrd Date/Time/By: 01/21/2019 (12 17) : By: [email or web address] Orig Print D/T: S: 01/22/2019 (1147) PAGE 1 Signed Report [id number] 12:13:00* Test Item Value Reference Range Interpretation Comments GLUBED (test code = GLUBED) 114 mg/dL 74-106 H Performed by certified liquor bridge operator at [facility] - CT HEAD/BRAIN W/O [id number] 12:02:00 Name: NOEMY ARGUETA [facility] : 1935 Age/S: 83 / M [address] [facility] Unit #: [id number] Loc: [place] [address] Phys: Obey De Souza MD Acct: [id number] Dis Date: Status: ADM IN PHONE #: [phone] Exam Date: 01/20/2019 2300 FAX #: [phone] Reason: fall/AMS EXAMS: CPT CODE: [id number] CT HEAD/BRAIN W/O CONT 58319 HISTORY: Confusion. COMPARISON: None available. CT brain [...] (1202) [email or web address] Orig Print D/T: S: 01/21/2019 (2779) CTDI: DLP: PAGE 1 Signed Report [id number] 07:52:00* Test Item Value Reference Range Interpretation Comments GLUBED (test code = GLUBED) 100 mg/dL 74-106 N Performed by certified liquor bridge operator at [facility] BASIC METABOLIC [id number] 23:39:00* Test Item Value Reference Range Interpretation [...] CK) 7841 IUnit/L 26-208 H BASIC METABOLIC [id number] 23:09:00* Test Item Value Reference Range Interpretation [...] code = CK) IUnit/L 26-208 BASIC METABOLIC [id number] 23:02:00* Test Item Value Reference Range Interpretation [...] code = CK) IUnit/L 26-208 CBC W/AUTO [id number] 22:47:00* Test Item Value Reference Range Interpretation [...] (test code = MDIFF) NO CBC W/AUTO [id number] 22:39:00* Test Item Value Reference Range Interpretation [...] BA#) K/mm3 0.0-0.2 XR RIBS UNILATERAL/ PA [id number] 14:04:37Procedures: XR RIBS UNILATERAL/ PA CHESTExam Date: [...] By: AG WATSONDate: 02/23/2018 14:04MRI BRAIN WO [place] [address] Patient Name: NOEMY ARGUETA MR #: [id number] : 1935 Age/Sex: 82/M Req #: [id number] [facility] Physician: KLAUDIA ARZOLA MD Ordered by: CARISSA ROSAS MD Report #: [id number] Location: [facility] Room/Bed: [place] [address] Procedure: [id number] MRI /MRI BRAIN WO Exam Date: 06/28/17 [...] left eason radiata. Signed by: Dr. Elmira Vgea M.D. on 06/28/20 10:31 PM Dictated By: ELMIRA VEGA MD 30 Transcribed By: APOORVA on 06/28/172230 COPY TO: CARISSA ROSAS MD CHEST SINGLE (PORTABLE) [place] [address] Patient Name: NOEMY ARGUETA MR #: [id number] : 1935 Age/Sex: 82/M Req #: [id number] Adm Physician: Ordered by: ABEL DE LEÓN Report #: [id number] Location: ER Room/Bed: Procedure: [id number] DX/CHEST SINGLE (PORTABLE) Ex am Date: 06/28/17 [...] TO: ABEL DE LEÓN CT BRAIN WO [place] [address] Patient Name: NOEMY ARGUETA MR #: [id number] : 1935 Age/Sex: 82/M Req #: [id number] [facility] Physician: Ordered by: ABEL DE LEÓN Report #: [id number] Location: ER Room/Bed: Procedure: [id number] CT/CT BRAIN WO Exam Date: Exam Time: [...] TO: SALTY DE LEÓN CT BRAIN WO [place] [address] Patient Name: NOEMY ARUGETA MR #: [id number] : 1935 Age/Sex: 82/M Req #: [id number] Adm Physician: Ordered by: MELANIE PRAKASH MD Report #: [id number] Location: ER Room/Bed: Procedure: [id number] CT/CT BRAIN WO Exam Date: Exam Time: [...]
--- OUTSIDE RECORDS SUMMARY | 2020-06-03 10:29 | XMS REPORT | Continuity of Care Document ---
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 Phone [employer] Information [employer] Unavailable Un available Problems Problem Status Onset [...] viral diseases Active Diagnosis 09/02/2019 Keegan Ingram [facility] (current) use of opiate analgesic Active Diagnosis [...] Orally Active 4mg Orally once a day [place] 04/22/2020 Keegan Ingram Tylenol/Codeine #3 1 tablet as needed Orally Active 300-30 MG Orally every 6 hrs [facility] 04/14/2020 Keegan Ingram Chlordiazepoxide HCl 1 capsule Orally Active 10 MG Orally Twice a day [facility] 04/14/2020 Keegan Ingram Tramadol HCl 1 tablet as needed Orally Active 50 mg Orally twice a day (bid) [place] 08/20/2019 Keegan Ingram Medrol Dose [place] as directed Orally Active 4mg Orally once a day [facility] 12/01/2018 Keegan Ingram Chlordiazepoxide HCl 1 capsule Orally Active 10 MG Orally Twice a day [place] 09/09/2018 Keegan Ingram Chlordiazepoxide HCl 1 capsule Orally Active 25 MG Orally tid for nausea [place] 08/12/2018 Keegan Ingram PredniSONE 1-2 tabs prn for ar thritis flare up Orally Active 5 MG Orally Once a day [facility] 08/05/2018 Keegan Ingram Zofran 1 tablet Orally Active 8 MG Orally Twice a day [facility] 08/05/2018 Keegan Ingram Tylenol/Codeine #3 1 tablet as needed Orally Active 300-30 MG Orally qid [place] 06/10/2018 Keegan Ingram Meclizine HCl 1 tablet as need ed Orally Active 25 MG Orally Once a day [place] 06/10/2018 Keegan Ingram Vitamin D (Ergocalciferol) 1 c apsule Orally Active 91194 UNIT Orally once a week [place] 12/17/2017 Keegan Ingram Simponi Aria as directed Intravenous Active 50 MG/4ML Intravenous [place] 09/02/2017 Keegan Ingram PredniSONE 1-2 tabs PRN Orally Active 5 MG Orally Once a day [place] 08/20/2017 Keegan Ingram PredniSONE 1-2 tabs PRN [...]
--- OUTSIDE RECORDS SUMMARY | 2020-06-03 10:29 | XMS REPORT | Continuity of Care Document ---
Author Author [facility] t Organization [facility] [place], [place] Address [address] [place] [id number] Phone Unavailable Care Team Providers Care Transportation Job Titles Name Role Phone DAVID PORTER PCP Gerson [...] Type Policy Number Effective Date Expiration Date [facility] [id number] 2019 00:00:00 [facility] Problems Condition Name Condition Details Condition Category Status Onset Date Resolution Date Last Treatment Date Treating Clinician Comments Source Closed fracture of one rib Closed fracture of one rib Problem Active 2018-02-22 00:00:00 [facility] (LUF/IZAIAH/SA) Arthralgia of bilateral temporomandibular joint Arthra [...] [facility] Dizziness Dizziness Problem Active [facility] Foreign body in esophagus Esophageal foreign body Problem Active [facility] Fever Fever Problem Active [facility] Weakness Generalized weakness Problem Active [facility] Pill esophagitis Pill esophagitis Problem Active [facility] Pneumonia Pneumonia Problem Active [facility] Nausea Problem Active [facility] Pre-syncope Problem Active [facility] Constipation Problem Active [facility] Renal mass Problem Active [facility] Knee pain, right Knee pain, right Active Problem 04/24/2020 Keegan Ingram Problem Active 2020-04-24 02:45:06 [facility] Ankylosing spondylitis of multiple sites in spine Ankylosing spondylitis of multiple sites in spine Active Problem 04/24/2020 Keegan Ingram Problem Active 2020-04-24 02:45:06 John Cárdenas Long-term use of high-risk medication Long-term use of high-risk medication Active Problem 04/24/2020 Keegan Ingram Problem Active 2020-04-24 02:45:06 John Cárdenas Vitamin D deficiency Kamila min D deficiency Active Problem 04/24/2020 Keegan Ingram Problem Active 2020-04-24 02:45:06 John Cárdenas Nausea Naus ea Active Problem 04/24/2020 Keegan Ingram Problem Active [...] other complications Active Problem 01/25/2018 Philippe Gibson Problem Active 2018-01-25 02:45:48 [facility] [place] Bilateral lower extremity edema Bilateral lower extremity edema Active Problem 01/25/2018 Philippe Gibson Problem Active 2018-01-25 02:45:48 [facility] Venous insufficiency Veno us insufficiency Active Diagnosis 03/07/2017 Philippe Gibson Diagnosis Active 2017-03-07 02:45 :07 [facility] Essential hypertension Esse ntial hypertension Active Problem 01/25/2018 Philippe Gibson Problem Active 16-01-28 02:45:48 [facility] Obesity (BMI 30.0-34.9) Obes ity (BMI 30.0-34.9) Active Problem 01/25/2018 Philippe Gibson Problem Active 16-01-28 02:45:48 [facility] Osteoarthritis, unspecified osteoarthritis type, unspe cified site Osteoarthritis, unspecified osteoarthritis type, unspecified site Active Problem 01/25/2018 Philippe Gibson Problem Active 16-01-28 02:45:48 [facility] Family history of abdominal aortic aneurysm (AAA) Family history of abdominal aortic aneurysm (AAA) Active Problem 01/25/2018 Philippe Gibson Problem Active 2018-01-25 02:45:48 Armando Cárdenas Former smoker Form er smoker Active Problem 01/25/2018 Philippe Gibson Problem Active 2018-01-25 02:45:48 [facility] Dyspnea, unspecified type Dysp kobi, unspecified type Active Problem 01/25/2018 Philippe Gibson Problem Active 16-01-28 02:45:48 [facility] Preoperative cardiovascular examination Preoperative cardiovascular examination Active Problem 01/25/2018 Philippe Gibson Problem Active 2018-01-25 02:45:48 Daniel Cárdenas 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 Active Problem 01/25/2018 Philippe Gibson Problem Active 2018-01-25 02:45:48 [facility] Fatigue Fati shane Active Diagnosis 12/19/2017 Keegan Ingram Diagnosis Active 2017-12-19 02:46:26 [facility] Encounter for screening for other viral diseases Encounter for screening for other viral diseases Active Diagnosis 09/02/2019 Keegan Ingram Diagnosis Active 2019-09-02 03:46:32 [facility] FDC (current) use of opiate analgesic FDC (current) use of opiate analgesic Active Diagnosis 09/02/2019 Keegan Ingram Diagnosis Active 2019-09-02 03:46:32 [facility] Encounter for screening for other bacterial diseases Encounter for screening for other bacterial diseases Active Diagnosis 09/02/2019 Keegan Ingram Diagnosis Active 2019-09-02 03:46:32 [facility] Screening for tuberculosis Scr eening for tuberculosis Active Diagnosis 09/02/2019 Keegan Ingram Diagnosis Active 2019-09-02 03:46:32 [facility] Chronic pain Stna juwan pain Active Problem 04/24/2020 Keegan Ingram Problem Active 2020-04-24 02:45:06 [facility] Immunocompromised state Immu nocompromised state Active Problem 04/24/2020 Keegan Ingram Problem Active 2020-04-24 02 :45:06 [facility] Allergies, Adverse Reactions, Alerts Allergy Name Allergy Type Status Severity Reaction(s) Onset Date Inacti ve Date Treating Clinician Comments Source Remicade Remicade Active Info Not Available 2020-04-14 00:00:00 [facility] Mirapex Mirapex Active nausea/emesis 2020-04-14 00:00:00 [facility] latex DA Active U 2019-01-21 00:00:00 [facility] Latex Allergy to substance Active RASH 2017-06-28 00:00:00 [facility] N.KBrisaA. N.Dena Active Info Not Available 2017-02-28 00:00:00 [facility] latex DA Active U 2013-02-17 00:00:00 [facility] Latex Gloves Adverse Reaction Active Info Not Available [facility] Family History Family Member Diagnosis Comments Start Date Stop Date Source 33 FATHER Family history of arterial aneurysm [facility] 32 MOTHER Family history of arterial aneurysm [facility] 09 SISTER Family history of neuropathy [facility] Social History Social Habit Start Date Stop Date Quantity Comments Source Sex Assigned At 1935 00:00:00 1935 00:00:00 Male [facility] Smoking Status Start Date Stop Date Source Never smoker [facility] (LUF/IZAIAH/SA) Medications Ordered Medication Name Filled Medication Name Start Date Stop Da te Current Medication? Ordering Clinician Indication Dosage Frequency Signature (SIG) Comments Components Source Medrol Dose Davis 2020-04-22 00:00:00 Yes Gregory Ingram as directed [facility] Nexium 2020-04-19 02:46:07 Yes Milad Rodriguez TAKE ONE CAPSULE BY MOUTH EVERY DAY [facility] Atenolol 2020-04-19 02:46:07 Yes Milad Rodriguez 1 t ablet [facility] Gabapentin 2020-04-19 02:46:07 Yes Milad Rodriguez 1 tablet [facility] Vitamin D 2020-04-19 02:46:07 Yes Milad Rodriguez 1 tablet [facility] Tylenol/Codeine #3 2020-04-14 00:00:00 Yes Milad Rodriguez 1 tablet as needed [facility] Chlordiazepoxide HCl 2020-04-14 00:00:00 Yes Milad Rodriguez 1 capsule [facility] Tramadol HCl 2019-08-20 00:00:00 Yes Maria E Martines 1 tablet as needed [facility] Medrol Dose Davis 2018-12-01 00:00:00 Yes Evaristo Rolonf as directed [facility] Chlordiazepoxide HCl 2018-09-09 00:00:00 Yes Maria E Martines 1 capsule [facility] Chlordiazepoxide HCl 2018-08-12 00:00:00 Yes Evaristo Rolonf 1 capsule [facility] PredniSONE 2018-08-05 00:00:00 Yes Evaristo Olguin 1-2 tabs prn for arthritis flare up [facility] Zofran 2018-08-05 00:00:00 Yes Milad Rodriguez 1 tab let [facility] Nasacort Nasacort 2018-07-31 00:00:00 Yes Duane Mcdonnell 2 puffs in each nostril [facility] Ofloxacin Ofloxacin 2018-07-31 00:00:00 2018-08-06 00:00:00 No Jayla Mcdonnell 4 drops into affected ear [facility] Gabapentin 2018-06-17 02:46:27 Yes Evaristo Olguin 1 tablet [facility] Tylenol/Codeine #3 2018-06-10 00:00:00 Yes Maria E Martines 1 tablet as needed [facility] Meclizine HCl 2018-06-10 00:00:00 Yes Milad Clemonsriz 1 tablet as needed [facility] Atenolol 2018-01-25 02:45:48 Yes Philippe Jeroudi 1 tablet [facility] Azelastine HCl 2018-01-25 02:45:48 Yes Philippe Jeroudi 1 puff in each nostril [facility] Hydrocodone-Acetaminophen 2018-01-25 02:45:48 Yes Chasidyame d Jeroudi 1 tablet as needed [facility] Omeprazole 2018-01-25 02:45:48 Yes Chasidyamed Jeroudi 1 capsule [facility] Triamterene-HCTZ 2018-01-25 02:45:48 Yes Chasidyamed Jeroudi 1 tablet in the morning [facility] Gabapentin 2018-01-25 02:45:48 Yes Philippe Jeroudi 1 tablet [facility] Asmanex 14 Metered Doses 2018-01-25 02:45:48 Yes Mohamed Jeroudi 1 puff in the evening [facility] Pramipexole Dihydrochloride 2018-01-25 02:45:48 Yes Moha med Jeroudi 1 tablet before bedtime [facility] Stiolto Respimat 2018-01-25 02:45:48 Yes Mohamed Jeroudi 2 puffs [facility] Vitamin D (Ergocalciferol) 2017-12-17 00:00:00 Yes Gretta Ingram 1 capsule [facility] Ciprodex Ciprodex 2017-12-11 00:00:00 Yes Duane Mcdonnell not defined [facility] Simponi Aria 2017-09-02 00:00:00 Yes Milad Rodriguez as directed [facility] PredniSONE 2017-08-20 00:00:00 Yes Gregory Ingram 1-2 tabs PRN [facility] PredniSONE 2017-08-20 00:00:00 Yes Wanikia Clau 1-2 tabs PRN [facility] Atenolol 2017-07-23 02:45:17 Yes Mohamed Jeroudi 1 tablet [facility] Gabapentin 2017-07-23 02:45:17 Yes Mohamed Jeroudi 1 tablet [facility] Pramipexole Dihydrochloride 2017-07-23 02:45:17 Yes Moha med Jeroudi 1 tablet before bedtime [facility] Triamterene-HCTZ 2017-07-23 02:45:17 Yes Mohamed Jeroudi 1 tablet in the morning [facility] Omeprazole 2017-07-23 02:45:17 Yes Mohamed Jeroudi 1 capsule [facility] Azelastine HCl 2017-07-23 02:45:17 Yes Mohamed Jeroudi 1 puff in each nostril [facility] Asmanex 14 Metered Doses 2017-07-23 02:45:17 Yes Mohamed Jeroudi 1 puff in the evening [facility] Hydrocodone-Acetaminophen 2017-07-23 02:45:17 Yes Mohame d Jeroudi 1 tablet as needed [facility] Stiolto Respimat 2017-07-23 02:45:17 Yes Mohamed Jeroudi 2 puffs [facility] Ranitidine HCl Ranitidine HCl 2017-07-16 00:00:00 Yes Duane thorne 1 tablet [facility] Tylenol/Codeine #3 2016-12-28 00:00:00 Yes Evaristo Rolon f 1 tablet as needed [facility] Acetaminophen 300 MG / Codeine Phosphate 60 MG Oral Ta blet Acetaminophen 300 MG / Codeine Phosphate 60 MG Oral Tablet Yes 1tab QID [facility] (F/IZAIAH/SA) Atenolol 50 MG Oral Tablet Atenolol 50 MG Oral Tablet Yes 50mg [facility] ([facility]/IZAIAH/SA) gabapentin 600 MG Oral Tablet gabapentin 600 MG Oral Tablet Yes 600mg TID [facility] (F/IZAIAH/SA) Gabapentin Gabapentin Yes Duane Mcdonnell not defin ed [facility] Triamterene Triamterene Yes Duane Mcdonnell not def ined [facility] Atenolol Atenolol Yes Duane Mcdonnell not defined [facility] Acetamin Acetamin Yes Duane Mcdonnell not defined [facility] Acetaminophen With Codeine (Acetaminophen-Codeine Elix ir) 118 Ml ELIXIR Acetaminophen With Codeine (Acetaminophen-Codeine Elixir) 118 Ml ELIXIR Yes [facility] Atenolol Atenolol Yes 50 Daily [facility] Azithromycin (Z-Davis) 250 Mg TABLET Azithromycin (Z-Davis) 250 Mg TABLET Yes 250 Use As Directed [facility] Chlordiazepoxide Hcl Chlordiazepoxide Hcl Yes [facility] Gabapentin Gabapentin Yes [facility] Ondansetron Ondansetron Yes Terrie YANCEY [facility] Pantoprazole Sodium (Protonix) 40 Mg TABLET. Pantopr azole Sodium (Protonix) 40 Mg TABLET. Yes 40 Daily [facility] Smz/Tmp Smz/Tmp Yes [facility] Spironolactone Spironolactone Yes [facility] Gabapentin Gabapentin 2019-05-15 00:00:00 No 600 Thr ee Times A Day [facility] Ropinirole Hcl Ropinirole Hcl 2019-05-15 00:00:00 No .5 Bedtime [facility] Meclizine Hcl Meclizine Hcl 2019-03-11 00:00:00 No 25 Daily [facility] Pramipexole Di-Hcl (Pramipexole Dihydrochloride) 0.25 Mg TABLET Pramipexole Di- Hcl (Pramipexole Dihydrochloride) 0.25 Mg TABLET 2019-03-11 00:00:00 No .5 Twice A Day [facility] Triamterene/Hctz Triamterene/Hctz 2019-03-11 00:00:00 No Daily [facility] Vital Signs Vital Name Observation Time Observation Value Comments Source Body Temperature 2020-05-20 19:48:00 98.4 [degF] [facility] Weight 2020-05-20 15:27:00 210 [lb_av] [facility] BMI (Body Mass Index) 2020-05-20 15:27:00 30.1 kg/m2 [facility] Weight 2020-04-14 20:00:00 [facility] [place] Height 2020-04-14 20:00:00 [facility] [place] Temperature Oral (F) 2020-04-14 20:00:00 97.9 F [facility] [place] Heart Rate 2020-04-14 20:00:00 [facility] [place] Diastolic (mm Hg) 2020-04-14 20:00:00 Mem orial [facility]vi Systolic (mm Hg) 2020-04-14 20:00:00 Armando mitzil [place] Weight 2019-08-20 20:30:00 [facility] [place] Height 2019-08-20 20:30:00 [facility] Temperature Oral (F) 2019-08-20 20:30:00 97.7 F [facility] [place] Heart Rate 2019-08-20 20:30:00 [facility] [place] Diastolic (mm Hg) 2019-08-20 20:30:00 [facility] [place] Systolic (mm Hg) 2019-08-20 20:30:00 Armando mitzil Avi Weight 2019-06-16 18:45:00 [facility] [place] Height 2019-06-16 18:45:00 [facility] Temperature Oral (F) 2019-06-16 18:45:00 98.9 F [facility] [place] Heart Rate 2019-06-16 18:45:00 [facility] [place] Diastolic (mm Hg) 2019-06-16 18:45:00 Mem o[facility]vi Systolic (mm Hg) 2019-06-16 18:45:00 Armando rial Avi Weight 2019-01-05 16:45:00 [facility] Height 2019-01-05 16:45:00 [facility] [place] Temperature Oral (F) 2019-01-05 16:45:00 96.8 F [facility] Heart Rate 2019-01-05 16:45:00 [facility] Diastolic (mm Hg) 2019-01-05 16:45:00 Mem [facility] Systolic (mm Hg) 2019-01-05 16:45:00 Armando rial [place] Weight 2018-11-07 16:15:00 [facility] Height 2018-11-07 16:15:00 [facility] Temperature Oral (F) 2018-11-07 16:15:00 96.6 F [facility] [place] Heart Rate 2018-11-07 16:15:00 [facility] [place] Diastolic (mm Hg) 2018-11-07 16:15:00 Mem o[facility] Avi Systolic (mm Hg) 2018-11-07 16:15:00 Armando rial Avi Weight 2018-11-04 19:15:00 [facility] [place] Height 2018-11-04 19:15:00 [facility] [place] Temperature Oral (F) 2018-11-04 19:15:00 98.0 F [facility] Rate 2018-11-04 19:15:00 [facility] [place] Diastolic (mm Hg) 2018-11-04 19:15:00 [facility] [place] Systolic (mm Hg) 2018-11-04 19:15:00 Armando rial [place] Weight 2018-09-09 19:00:00 [facility] Height 2018-09-09 19:00:00 [facility] [place] Temperature Oral (F) 2018-09-09 19:00:00 98.8 F [facility] Heart Rate 2018-09-09 19:00:00 [facility] Diastolic (mm Hg) 2018-09-09 19:00:00 [facility] [place] Systolic (mm Hg) 2018-09-09 19:00:00 Armando rial Avi Weight 2018-08-12 21:00:00 [facility] Height 2018-08-12 21:00:00 [facility] [place] Temperature Oral (F) 2018-08-12 21:00:00 97.2 F [facility] [place] Heart Rate 2018-08-12 21:00:00 [facility] [place] Diastolic (mm Hg) 2018-08-12 21:00:00 [facility] [place] Systolic (mm Hg) 2018-08-12 21:00:00 Armando rial [place] Weight 2018-08-05 19:00:00 [facility] [place] Height 2018-08-05 19:00:00 [facility] Temperature Oral (F) 2018-08-05 19:00:00 98.5 F [facility] Heart Rate 2018-08-05 19:00:00 [facility] [place] Diastolic (mm Hg) 2018-08-05 19:00:00 Mem o[facility] Systolic (mm Hg) 2018-08-05 19:00:00 Armando rial Avi Weight 2018-06-10 18:30:00 [facility] [place] Height 2018-06-10 18:30:00 [facility] [place] Temperature Oral (F) 2018-06-10 18:30:00 97.0 F [facility] [place] Heart Rate 2018-06-10 18:30:00 [facility] Diastolic (mm Hg) 2018-06-10 18:30:00 [facility] [place] Systolic (mm Hg) 2018-06-10 18:30:00 Armando jackie Avi Body Temperature 2018-02-22 12:32:00 98.2 F [facility] (LUF/IZAIAH/SA) Respiratory Rate 2018-02-22 12:32:00 20 /min [facility] (LUF/IZAIAH/SA) O2% BldC Oximetry 2018-02-22 12:32:00 98 % [facility] (LUF/IZAIAH/SA) BP Systolic 2018-02-22 12:32:00 128 mm[Hg] [facility] (LUF/IZAIAH/SA) BP Diastolic 2018-02-22 12:32:00 71 mm[Hg] [facility] (LUF/IZAIAH/SA) Height 2018-02-22 12:32:00 71 in [facility] (LUF/IZAIAH/SA) Weight Measured 2018-02-22 12:32:00 237 lbs [facility] (LUF/IZAIAH/SA) BMI (Body Mass Index) 2018-02-22 12:32:00 33.1 [facility] (LUF/IZAIAH/SA) Weight 2018-02-13 18:15:00 [facility] [place] Height 2018-02-13 18:15:00 [facility] [place] Temperature Oral (F) 2018-02-13 18:15:00 97.3 F [facility] [place] Heart Rate 2018-02-13 18:15:00 [facility] Diastolic (mm Hg) 2018-02-13 18:15:00 [facility] [place] Systolic (mm Hg) 2018-02-13 18:15:00 Armando rial Avi Weight 2017-12-16 20:00:00 [facility] Height 2017-12-16 20:00:00 [facility] [place] Temperature Oral (F) 2017-12-16 20:00:00 98.2 F [facility] Heart Rate 2017-12-16 20:00:00 [facility] Diastolic (mm Hg) 2017-12-16 20:00:00 [facility] Systolic (mm Hg) 2017-12-16 20:00:00 Armando rial [place] Weight 2017-10-21 21:30:00 [facility] [place] Height 2017-10-21 21:30:00 [facility] [place] Temperature Oral (F) 2017-10-21 21:30:00 99.0 F [facility] Heart Rate 2017-10-21 21:30:00 [facility] Diastolic (mm Hg) 2017-10-21 21:30:00 [facility] [place] Systolic (mm Hg) 2017-10-21 21:30:00 Armando rial [place] Weight 2017-02-28 18:00:00 [facility] Height 2017-02-28 18:00:00 [facility] [place] Temperature Oral (F) 2017-02-28 18:00:00 97.3 F [facility] [place] Heart Rate 2017-02-28 18:00:00 [facility] Diastolic (mm Hg) 2017-02-28 18:00:00 Mem [facility] Systolic (mm Hg) 2017-02-28 18:00:00 Armando rial [place] Weight 2017-01-31 20:00:00 [facility] Height 2017-01-31 20:00:00 [facility] [place] Temperature Oral (F) 2017-01-31 20:00:00 97.6 F [facility] [place] Heart Rate 2017-01-31 20:00:00 [facility] Diastolic (mm Hg) 2017-01-31 20:00:00 Mem [facility] Systolic (mm Hg) 2017-01-31 20:00:00 Armando rial [place] Weight 2017-01-16 20:30:00 [facility] [place] Height 2017-01-16 20:30:00 [facility] Temperature Oral (F) 2017-01-16 20:30:00 98.0 F [facility] [place] Heart Rate 2017-01-16 20:30:00 [facility] Diastolic (mm Hg) 2017-01-16 20:30:00 Mem [facility] Systolic (mm Hg) 2017-01-16 20:30:00 Armando rial [place] Procedures Procedure Date / Time Performed Performing Clinician [facility] e CT of abdomen and pelvis without contrast 2020-05-20 00:00:00 [facility] Computed tomography of abdomen and pelvis with contrast 00:00:00 [facility] Computed tomography of brain without radiopaque contrast 2020-03 00:00:00 [facility] Encounters Start Date/Time End Date/Time Encounter Type Admission Type [facility] Care Department Encounter ID Source 2020-05-20 17:40:00 2020-05-20 20:15:00 Departed Emergency Room PER AU [facility] [id number] [facility] 2020-05-12 16:56:00 2020-05-12 16:56:00 Registered Clinic 3 ARZOLANIECY BENSON [facility] [id number] [facility] 2020-05-11 17:07:00 2020-05-11 17:07:00 Registered Clinic 3 KLAUDIA ARZOLA [facility] [id number] [facility] 2020-04-22 09:51:00 2020-04-22 09:51:00 Outpatient Gregory Ingram MD [place] [id number] Keegan Ingram MD 2020-04-14 15:00:00 2020-04-14 15:00:00 Outpatient Gregory Ingram MD [place] [id number] Keegan Ingram MD 2020-04-01 11:00:00 2020-04-01 11:00:00 [facility] [id number] [facility] [place] 2020-03-16 13:53:00 2020-03-16 15:50:00 Departed Emergency Room [facility] Patients [facility] [id number] [facility] Patients [facility] 2020-03-14 13:57:00 2020-03-14 13:57:00 Outpatient Gregory Ingram MD PA [id number] Keegan Ingram MD 2020-03-13 16:51:00 2020-03-14 00:05:00 Departed Emergency Room 1 PER AU [facility] [id number] [facility] 2019-11-09 15:05:00 2019-11-09 15:05:00 Outpatient MD GALILEA Cazares MD [place] [id number] Keegan Ingram MD 2019-10-28 16:53:00 2019-10-28 16:53:00 Outpatient MD GALILEA Cazares MD PA [id number] MIRACLE Ingram MD 2019-08-20 14:53:00 2019-08-20 14:53:00 Outpatient MD GALILEA Cazares MD PA [id number] IMRACLE Ingram MD 2019-08-20 14:30:00 2019-08-20 14:30:00 Outpatient Gregory Ingram MD PA [id number] MIRACLE Ingram MD 2019-06-16 13:45:00 2019-06-16 13:45:00 Outpatient Gregory Ingram MD PA [id number] MIRACLE Ingram MD 2019-06-03 12:40:00 2019-06-03 12:40:00 Outpatient MD GALILEA Villa MD PA [id number] Keegan Ingram MD 2019-05-20 11:17:00 2019-05-20 11:17:00 Outpatient Gregory CALERO [id number] Keegan Ingram MD 2019-05-14 02:17:00 2019-05-15 18:35:00 Discharged Inpatient (obs) 1 [facility]ZEL [facility] [id number] [facility] 2019-03-30 14:59:00 2019-03-30 14:59:00 Outpatient Gregory CALERO [id number] Keegan Ingram MD 2019-03-17 07:14:00 2019-03-17 07:14:00 Registered Surgical Day Car e ELMIRA PARRA [facility] [id number] [facility] 2019-03-04 16:27:00 2019-03-04 16:27:00 Outpatient Gregory CALERO [id number] Keegan Ingram MD 2019-01-08 10:55:00 2019-01-08 10:55:00 [facility] [id number] [facility] 2019-01-05 11:45:00 2019-01-05 11:45:00 Outpatient Gregory CALERO [id number] Keegan Ingram MD 2018-12-01 16:00:00 2018-12-01 16:00:00 Outpatient Gregory CALERO [id number] MIRACLE Ingram MD 2018-11-28 13:18:00 2018-11-28 13:18:00 Outpatient Gregory CALERO [id number] MIRACLE Ingram MD 2018-11-07 10:15:00 2018-11-07 10:15:00 Outpatient Gregory CALERO [id number] Keegan Ingram MD 2018-11-04 13:15:00 2018-11-04 13:15:00 Outpatient Gregory CALERO [id number] Keegan Ingram MD 2018-09-09 13:00:00 2018-09-09 13:00:00 Outpatient Gregory CALERO [id number] Keegan Ingram MD 2018-08-26 14:53:00 2018-08-26 14:53:00 Outpatient Gregory CALERO [id number] Keegan Ingram MD 2018-08-12 15:00:00 2018-08-12 15:00:00 Outpatient Gregory CALERO [id number] Keegan Ingram MD 2018-08-05 13:00:00 2018-08-05 13:00:00 Outpatient Gregory CALERO [id number] Keegan Ingram MD 2018-07-31 10:00:00 2018-07-31 10:00:00 [facility]patient [facility] [id number] ENT 2018-07-30 15:49:00 2018-07-30 15:49:00 Outpatient [facility] [id number] [facility] ENT 2018-06-23 18:55:00 2018-06-23 18:55:00 Outpatient [facility] [id number] [facility] 2018-06-10 14:46:00 2018-06-10 14:46:00 Outpatient Gregory CALERO [id number] Keegan Ingram MD 2018-06-10 13:30:00 2018-06-10 13:30:00 Outpatient Gregory Ingram MD [place] [id number] Keegan Ingram MD 2018-02-22 12:13:00 2018-02-22 14:30:00 FX 1 RIB LT SIDE INITIAL CL OS FX 1 JOE [facility], [address] [place] [address] , [place] [address] [facility] [id number] [facility] (LUF /IZAIAH/SA) 2018-02-13 13:15:00 2018-02-13 13:15:00 Outpatient Gregoyr Ingram MD PA [id number] Keegan Ingram MD 2018-02-11 15:39:00 2018-02-11 15:39:00 Outpatient Gregory Ingram MD PA [id number] Keeagn Ingram MD 2017-12-17 12:56:00 2017-12-17 12:56:00 Outpatient Gregory Ingram MD PA [id number] Keegan Ingram MD 2017-12-16 15:00:00 2017-12-16 15:00:00 Outpatient Gregory Ingram MD PA [id number] Keegan Ingram MD 2017-12-11 13:20:00 2017-12-11 13:20:00 Outpatient [facility] [id number] ENT 2017-12-04 13:00:00 2017-12-04 13:00:00 Outpatient [facility] [id number] [facility] 2017-10-22 08:34:00 2017-10-22 08:34:00 Outpatient Gregory Ingram MD PA [id number] Keegan Ingram MD 2017-10-21 15:30:00 2017-10-21 15:30:00 Outpatient Gregory Ingram MD PA [id number] Keegan Ingram MD 2017-02-28 13:00:00 2017-02-28 13:00:00 Outpatient Philippe Gibson MD PA [id number] [employer] 2017-02-12 11:00:00 2017-02-12 11:00:00 Outpatient Philippe Gibson MD [place] [id number] [employer] 2017-01-31 15:00:00 2017-01-31 15:00:00 Outpatient Philippe Gibson MD PA [id number] [employer] 2017-01-16 15:30:00 2017-01-16 15:30:00 Outpatient Philippe CALERO [id number] [facility] Results Test Description Test Time Test Comments Results Result Comments Source CT ABDOMEN/PELVIS WO 2020-05-20 17:22:00 [place] [address] Patient Name: NOEMY ARGUETA MR #: [id number] : 1935 Age/Sex: 84/M Req #: [id number] Adm Physician: Ordered by: PER AU MD Report #: [id number] Location: ER Room/Bed: Procedure: [id number] CT/CT ABDOMEN/PELVIS WO Exam Date: 05/20/20 Exam [...] on 05/20/201733 COPY TO: PER AU MD Urine color determination 2020-05-20 16:58:00 Test Item Urine Color (test code = 5778-6) YELLOW YELLOW [facility] Center[facility] xehxuvi1544-16-64 16:58:00* Test Item Value Reference Range Interpretation Comments Urine Clarity (test code = 08013-0) SL CLOUDY CLEAR [facility] gravity of Urine by Test strip 2020-05-20 16:58:00* Test Item Value Reference Range Interpretation Comments Urine Specific [place] (test code = 5811-5) 1.010 1.010-1.02 5 [facility] CenterU[facility] pH measurement by automated test irixg9596-48-92 16:58:00* Test Item Value Reference Range Interpretation Comments Urine pH (test code = 39385-9) 6 5-7 [facility] CenterUrine leukocyte esterase detection by juostugm5829-74-53 16:58:00* Test Item Value Reference Range Interpretation Comments Urine Leukocyte Esterase (test code = 5799-2) NEGATIVE NEGATIVE [facility] CenterUrine nitrite axtgecyvi0296-25-87 16:58:00* Test Item Value Reference Range Interpretation Comments Urine Nitrite (test code = 40303-5) NEGATIVE NEGATIVE [facility] CenterU[facility] protein measurement by test strip (mass/volume)2020-05-20 16:58:00* Test Item Value Reference Range Interpretation Comments Urine Protein (test code = 5804-0) NEGATIVE NEGATIVE [facility] CenterUrine glucose qyxfegwiy0799-67-43 16:58:00* Test Item Value Reference Range Interpretation Comments Urine Glucose (UA) (test code = 2349-9) NEGATIVE NEGATIVE [facility] CenterUrine ketones detection by automated test eclvj6000-90-82 16:58:00* Test Item Value Reference Range Interpretation Comments Urine Ketones (test code = 54897-8) NEGATIVE NEGATIVE [facility] CenterUrine urobilinogen measurement by test strip (mass/volume)2020-05-20 16:58:00* Test Item Value Reference Range Interpretation Comments Urine Urobilinogen (test code = 98849-0) 0.2 0.2-1 [facility] CenterU[facility] total bilirubin measurement (mass/volume)2020-05-20 16:58:00* Test Item Value Reference Range Interpretation Comments Urine Bilirubin (test code = 1978-6) NEGATIVE NEGATIVE [facility] CenterUrine erythrocytes vhkhtoxgx2164-91-85 16:58:00* Test Item Value Reference Range Interpretation Comments Urine Blood (test code = 37272-4) NEGATIVE NEGATIVE [facility] CenterAutomated urine sediment leukocyte count by microscopy (number/high power field)2020-05-20 16:58:00* Test Item Value Reference Range Interpretation Comments Urine WBC (test code = 5821-4) NONE 0-5 [facility] CenterErythrocytes detection in urine sediment by light bjxcrxrhyd8685-27-30 16:58:00* Test Item Value Reference Range Interpretation Comments Urine RBC (test code = 98453-1) NONE 0-5 [facility] CenterBacteria detection in urine sediment by light jixjrnstpr0555-48-52 16:58:00* Test Item Value Reference Range Interpretation Comments Urine Bacteria (test code = 91050-9) FEW NONE [facility] CenterEpithelial cells detection in urine sediment by light gjiynxsgke0470-02-24 16:58:00* Test Item Value Reference Range Interpretation Comments Urine Epithelial Cells (test code = 08478-4) RARE NONE [facility] CenterBlood leukocytes automated count (number/volume)2020-05-20 15:36:00* Test Item Value Reference Range Interpretation Comments White Blood Count (test code = 6690-2) 8.36 4.8-10.8 [facility] CenterBlood erythrocytes automated count (number/volume)2020-05-20 15:36:00* Test Item Value Reference Range Interpretation Comments Red Blood Count (test code = 789-8) 5.04 4.3-5.7 [facility] CenterBlood hemoglobin measurement (moles/volume)2020-05-20 15:36:00* Test Item Value Reference Range Interpretation Comments Hemoglobin (test code = 62622-2) 15.1 14.0-18.0 [facility] CenterAutomated blood hematocrit (volume fraction)2020-05-20 15:36:00* Test Item Value Reference Range Interpretation Comments Hematocrit (test code = 4544-3) 45.8 38.2-49.6 [facility] CenterAutomated erythrocyte mean corpuscular pigvsf3211-70-40 15:36:00* Test Item Value Reference Range Interpretation Comments Mean Corpuscular Volume (test code = 787-2) 90.9 81-99 [facility] CenterAutomated erythrocyte mean corpuscular hemoglobin (mass per erythrocyte)2020-05-20 15:36:00* Test Item Value Reference Range Interpretation Comments Mean Corpuscular Hemoglobin (test code = 785-6) 30.0 28-32 [facility] CenterAutomated erythrocyte mean corpuscular hemoglobin concentration measurement (mass/volume)2020-05-20 15:36:00* Test Item Value Reference Range Interpretation Comments Mean Corpuscular Hemoglobin Concent (test code = 786-4) 33.0 31-35 [facility] CenterRDW VgzCa-Cfl9941-38-21 15:36:00* Test Item Value Reference Range Interpretation Comments Red Cell Distribution Width (test code = 06116-0) 14.0 11.7 -14.4 [facility] CenterAutomated blood platelet count (count/volume)2020-05-20 15:36:00* Test Item Value Reference Range Interpretation Comments Platelet Count (test code = 777-3) 187 140-360 [facility] CenterAutnovant health cle[facility] centered blood segmented neutrophil count as percentage of total cylhsaeeli5758-73-90 15:36:00* Test Item Value Reference Range Interpretation Comments Neutrophils (%) (Auto) (test code = 77212-6) 65.9 38.7-80.0 [facility] CenterAutomated blood lymphocyte count as percentage ot total ctcqrwdcoe0837-45-27 15:36:00* Test Item Value Reference Range Interpretation Comments Lymphocytes (%) (Auto) (test code = 736-9) 24.4 18.0-39.1 [facility] CenterAutomated blood monocyte count as percentage of total pptpnwiomh2050-55-82 15:36:00* Test Item Value Reference Range Interpretation Comments Monocytes (%) (Auto) (test code = 5905-5) 8.1 4.4-11.3 [facility] CenterAutomated blood eosinophil count as percentage of total usdczdhgtw7163-38-93 15:36:00* Test Item Value Reference Range Interpretation Comments Eosinophils (%) (Auto) (test code = 713-8) 0.6 0.0-6.0 [facility] CenterAutomated blood basophil count as percentage of total gyzeafnnzw5766-39-99 15:36:00* Test Item Value Reference Range Interpretation Comments Basophils (%) (Auto) (test code = 706-2) 0.6 0.0-1.0 [facility] CenterFluoroscopic procedure less than one hour jnalmwey7408-64-09 15:36:00* Test Item Value Reference Range Interpretation Comments IM GRANULOCYTES % (test code = IM GRANULOCYTES %) 0.4 0.0- 1.0 [facility] CenterAutomated blood neutrophil count 2020-05-20 15:36:00* Test Item Value Reference Range Interpretation Comments Neutrophils # (Auto) (test code = 751-8) 5.5 2.1-6.9 [facility] CenterBlood lymphocytes count (number/volume) 2020-05-20 15:36:00* Test Item Value Reference Range Interpretation Comments Lymphocytes # (Auto) (test code = 76174-6) 2.0 1.0-3.2 [facility] CenterBlood monocytes automated count (number/volume)2020-05-20 15:36:00* Test Item Value Reference Range Interpretation Comments Monocytes # (Auto) (test code = 742-7) 0.7 0.2-0.8 [facility] CenterAutomated blood eosinophil count 2020-05-20 15:36:00* Test Item Value Reference Range Interpretation Comments Eosinophils # (Auto) (test code = 711-2) 0.1 0.0-0.4 [facility] CenterAutomated blood basophil count (count/volume)2020-05-20 15:36:00* Test Item Value Reference Range Interpretation Comments Basophils # (Auto) (test code = 704-7) 0.1 0.0-0.1 [facility] CenterFluoroscopic procedure less than one hour jjkbdurc9076-61-01 15:36:00* Test Item Value Reference Range Interpretation Comments Absolute Immature Granulocyte (auto (faye t code = Absolute Immature Granulocyte (auto) 0.03 0-0.1 [facility] Centererum or plasma sodium measurement (moles/volume)2020-05-20 15:36:00* Test Item Value Reference Range Interpretation Comments Sodium Level (test code = 2951-2) 140 136-145 [facility] Centererum or plasma potassium measurement (moles/volume)2020-05-20 15:36:00* Test Item Value Reference Range Interpretation Comments Potassium Level (test code = 2823-3) 4.1 3.5-5.1 [facility] Centererum or plasma chloride measurement (moles/volume)2020-05-20 15:36:00* Test Item Value Reference Range Interpretation Comments Chloride Level (test code = 2075-0) 104 98-107 [facility] Centererum or plasma carbon dioxide, total measurement (moles/volume)2020-05-20 15:36:00* Test Item Value Reference Range Interpretation Comments Carbon Dioxide Level (test code = 2028-9) 23 22-29 [facility] Centererum or plasma anion sqg2544-97-43 15:36:00* Test Item Value Reference Range Interpretation Comments Anion Gap (test code = 23003-5) 17.1 8-16 [facility] Centererum or plasma urea nitrogen measurement (mass/volume)2020-05-20 15:36:00* Test Item Value Reference Range Interpretation Comments Blood Urea Nitrogen (test code = 3094-0) 12 7-26 [facility] Centererum or plasma creatinine measurement (mass/volume)2020-05-20 15:36:00* Test Item Value Reference Range Interpretation Comments Creatinine (test code = 2160-0) 1.31 0.72-1.25 [facility] Centererum or plasma urea nitrogen/creatinine mass dutzx3562-69-49 15:36:00* Test Item Value Reference Range Interpretation Comments BUN/Creatinine Ratio (test code = 3097-3) 9 6-25 [facility] CenterEstimated glomerular filtration rate (GFR) jvxzjaagzrpcp6755-65-10 15:36:00* Test Item Value Reference Range Interpretation Comments Estimat Glomerular Filtration Rate (test code = 530676561) 52 >60 Ranges were taken from the National Kidney Disease Education Program and the [facility] [employer] Foundation literature.Reference ranges:60 or greater: Ofagqp93-62 ( for 3 consecutive months): Chronic kidney disease 15 or less: Kidney failureMemorial Hermann Memorial City Medical CenterGlucose mglqwqgszou3242-90-88 15:36:00* Test Item Value Reference Range Interpretation Comments Glucose Level (test code = CQS6889) 120 74-118 [facility] Centererum or plasma calcium measurement (mass/volume)2020-05-20 15:36:00* Test Item Value Reference Range Interpretation Comments Calcium Level (test code = 01309-0) 9.6 8.4-10.2 [facility] Centererum or plasma magnesium measurement (mass/volume)2020-05-20 15:36:00* Test Item Value Reference Range Interpretation Comments Magnesium Level (test code = 10059-7) 1.5 1.3-2.1 [facility] Centererum or plasma total bilirubin measurement (mass/volume)2020-05-20 15:36:00* Test Item Value Reference Range Interpretation Comments Total Bilirubin (test code = 1975-2) 0.5 0.2-1.2 [facility] CenterFluoroscopic procedure less than one hour calwxuxl4004-28-64 15:36:00* Test Item Value Reference Range Interpretation Comments Aspartate Amino Transf (AST/SGOT) (test code = Aspartate Amino Transf (AST/SGOT)) 15 5-34 [facility] Centererum or plasma alanine aminotransferase measurement (enzymatic activity/volume)2020-05-20 15:36:00* Test Item Value Reference Range Interpretation Comments Alanine Aminotransferase (ALT/SGPT) (test code = 1742-6) 10 0-55 [facility] Centererum or plasma protein measurement (mass/volume)2020-05-20 15:36:00* Test Item Value Reference Range Interpretation Comments Total Protein (test code = 2885-2) 7.6 6.5-8.1 [facility] Centererum or plasma albumin measurement (mass/volume)2020-05-20 15:36:00* Test Item Value Reference Range Interpretation Comments Albumin (test code = 1751-7) 4.0 3.5-5.0 [facility] CenterPlasma globulin measurement (mass/volume) 2020-05-20 15:36:00* Test Item Value Reference Range Interpretation Comments Globulin (test code = 32276-0) 3.6 2.3-3.5 [facility] Centererum or plasma albumin/globulin mass bfcsh8438-81-20 15:36:00* Test Item Value Reference Range Interpretation Comments Albumin/Globulin Ratio (test code = 1759-0) 1.1 0.8-2.0 [facility] Centererum or plasma alkaline phosphatase measurement (enzymatic activity/volume)2020-05-20 15:36:00* Test Item Value Reference Range Interpretation Comments Alkaline Phosphatase (test code = 6768-6) 54 40-150 [facility] CenterCT ABDOMEN/PELVIS E7688-97-45 19:36:00 [facility] [address] [place] [address] Patient Name: NOEMY ARGUETA MR #: [id number] : 1935 Age/Sex: 84/M Req #: [id number] Adm Physician: Ordered by: NICEY ARZOLA MD Rep ort #: [id number] Location: CT Room/B ed: Procedure: [id number] CT/CT ABDOMEN/ PELVIS W Exam Date: 05/12/20 Exam Time: 1810 REPORT STATUS: Signed EXAM: CT Abdomen and Pelvis WITH contrast INDICATION: Abdominal pain and constipation. C OMPARISON: None. TECHNIQUE: Abdomen and pelvis were scanned utilizing a multid etector helical scanner from the lung base to the pubic symphysis after admini stration of IV contrast. Coronal and sagittal reformations were obtained. Rout ine protocol was performed. Scan was performed when during portal venous phase . IV CONTRAST: 100 mL of Isovue 370 ORAL CONTRAST: None COMPLICATIONS: None RADIATION DOSE: Total DLP: 548.95 mGy *cm Estimated effective dose: (DLP x 0.015 x size factor) mSv CTDI vol has been reviewed. It is below the limits set by the Radiation Protocol [facility]). Dose modulation, iterative reconstruction, and/or weight b ased adjustment of the mA/kV was utilized to reduce the radiation dose to as l ow as reasonably achievable. FINDINGS: LINES and TUBES: None. LOWER THORAX: Normal size heart with atherosclerotic calcification of the cor onary vessels. The lower thorax is otherwise normal. HEPATOBILIARY: No foca l hepatic lesions. No biliary ductal dilation. GALLBLADDER: Status post ch olecystectomy. No extrahepatic biliary ductal dilatation. SPLEEN: No sple nomegaly. PANCREAS: No focal masses or ductal dilatation. ADRENALS: No adrenal nodules KIDNEYS/URETERS: There is a nonobstructive 5 mm sto ne in the inferior pole of the left kidney. There are multiple exophytic cysts in the right kidney. There is a hyperdense exophytic lesion in the inferior p ole of the right kidney which measures approximately 7 mm (series 2 image 41). No hydronephrosis bilaterally. GI TRACT: There is moderate stool burden th roughout the colon with air-fluid levels seen in the transverse colon. No abno rmal distention, wall thickening, or evidence of bowel obstruction. Appendix is normal. PELVIC ORGANS/BLADDER: Multiple seeds in the prostate gland. LYMPH NODES: No lymphadenopathy. VESSELS: Unremarkable. PERITONEUM / RETROPERITONEUM: No free air or fluid. BONES: Multilevel degenerative khan ges of the spine with no suspicious osteolytic or osteoblastic lesions. There are multiple healed right rib fractures. SOFT TISSUES: Unremarkable. IMPRESSION: 1. Moderate stool burden throughout the colon with air-fluid levels seen in the transverse colon. This can present clinically as constipat ion. However, no evidence of bowel obstruction or inflammation. 2. Hyperden se exophytic lesion in the inferior pole of the right kidney which measures ap proximately 7 mm. This may represent hyperdense cysts, however a nonemergent C T of the abdomen/pelvis (renal mass protocol) is recommended to exclude possib ility of malignancy. 3. Nonobstructive left nephrolithiasis. Signed by: Riley Cervantes MD on 05/12/2020 8:04 PM Dictated By: RILEY CERVANTES MD Valeri ctronically Signed By: RILEY CERVANTES MD on 05/12/202003 Transcribed By: KUNAL LEE on 05/12/202003 COPY TO: NIECY ARZOLA MD ABDOMEN-1VIEW (KUB)2020-05-11 18:06:00 [place] [address] Patient Name: NOEMY ARGUETA MR #: [id number] : 1935 Age/Sex: 84/M Req #: [id number] Adm Physician: Ordered by: KLAUDIA ARZOLA MD Report #: [id number] Location: RAD Room/Bed: Procedure: [id number] DX/ABDOMEN-1VI EW ([facility]) Exam Date: 05/11/20 Exam Time: 1722 REPORT STATUS: Signed EXAM: Abdomen Rad iograph 1 View(s) INDICATION: Esophagitis and constipation. COMPARISON: Non e FINDINGS: No abnormalities in the lower chest. No lines or tube s. There is moderate stool burden throughout the colon. No dilated lo ops of small bowel. No abnormal abdominal calcifications. No abnormal soft tissue masses. Status post cholecystectomy. No pneumoperitoneum. No acute osseous abnormality. Multilevel degenerative changes in the lumbar spine and pelvis. IMPRESSION: Nonobstructive bowel gas pattern with m oderate stool burden throughout the colon. Signed by: Riley Cervantes MD on 05/11/2020 6:16 PM Dictated By: RILEY CERVANTES MD 15 Transcribed By: APOORVA on 05/11/201815 COPY TO: KLAUDIA ARZOLA MD Fluoroscopic procedure less than one hour lkbmdkfm8284-07-59 19:30:00* Test Item Value Reference Range Interpretation Comments Coronavirus (PCR) (test code = Coronavirus (PCR)) NOT DETECTED NOTD ETECTED SARS-COV2/RT-PCRNegative results do not preclude SARS-CoV-2 infection and should not be used as the sole basis for patient management decisions. Negative result s must be combined with clinical observations, patient history, and epidemiologi emmy information. A false negative result may occur if a specimen is improperly c ollected, transported or handled.The limit of detection for this assay is 250 co pies/mLThe SARS-CoV-2 test is a rapid, real-time RT-PCR test intended for the qu alitative detection of nucleic acid from SARS-CoV-2 in nasopharyngeal swab speci men collected from individuals suspected of COVID-19 by their healthcare provide r. This test has not been Food and Drug Administration (FDA) cleared or approved and has been authorized by FDA under an Emergency Use Authorization (EUA). This EUA will be effective until the declaration that circumstances exist justifying the authorization of the emergency use of in vitro diagnostic test for detectio n and or diagnosis of COVID-19 is terminated under section 564(b) of the Act, or the the EUA is revoked under 564(g) of the ACT.Testing performed by [address] [id number] [place], [place] [address]CHES SINGLE (PORTABLE)2020-04-02 07:07:00 [place] [address] Patient Name: NOEMY ARGUETA MR #: [id number] : 1935 Age/Sex: 84/M Req #: [id number] Adm Physician: AG JACOBSEN MD Ordered by: ANITHA POLANCO MD, MD Report #: [id number] Location: [facility] Martinez m/Bed: [facility] Procedure: [id number] DX/CHEST SI NGLE (PORTABLE) Exam Date: 04/02/20 Exam Time: 05 REPORT STATUS: Signed EXAMINATIO N: CHEST SINGLE (PORTABLE) INDICATION: Y HYPOXIA 509 Y COMPARISON: 04/01/2020 FINDINGS: AP view TUBES and LINES: None. LUNGS: Unchanged ill-defined bibasilar opacities. PLEURA: No pleural effusion or pneumothorax. HEART AND MEDIASTINUM: T he cardiomediastinal silhouette is unchanged. BONES AND SOFT TISSUES: No acute osseous lesion. Soft tissues are unremarkable. UPPER ABDOMEN: N o free air under the diaphragm. Elevated right hemidiaphragm. IMPRESSION: Stable exam. Unchanged bibasilar opacities which may represent pneumonia, atelectasis, and/or infection. Signed by: Omi Deleon MD on 0 7:08 AM Dictated By: OMI DELEON MD 7 Transcribed By: APOORVA on 04/02/20 0708 CO PY TO: ANITHA POLANCO Serum or plasma creatine kinase measurement (enzymatic activity/volume)2020-04-02 07:01:00* Test Item Value Reference Range Interpretation Comments Creatine Kinase (test code = 2157-6) 127 30-200 [facility]rum or plasma creatine kinase MB measurement (mass/volume)2020-04-02 07:01:00* Test Item Value Reference Range Interpretation Comments Creatine Kinase MB (test code = 01142-8) 2.00 0-5.0 [facility] CenterTroponin I measurement by highly sensitive enzyme ulwdusshevp8429-72-30 07:01:00* Test Item Value Reference Range Interpretation Comments Troponin I (test code = 40532-6) 0.003 0-0.300 [facility] FT5542-91-55 11:20:00 [facility] [address] [address] Patient Name: NOEMY ARGUETA MR #: [id number] : 1935 Age/Sex: 84/M Req #: [id number] Adm Physician: Ordered by: COLLIN BRANNON, ANITHA BRANNON Report #: [id number] Location: [facility]/Bed: Procedure: [id number] CT/CT BRAIN WO Exam Date: 04/01/20 Exam Time: 1050 REPORT STATUS: Signed EXAMINATION: Head CT HISTORY: Weakness, fever, status post fall. COMPARISON: Head CT 05/14/2019 TECHNIQUE: Helical axial images of the head were obtained. Reformatted coron al and sagittal images from the axial data. Dose modulation, iterative tiana nstruction, and/or weight based adjustment of the mA/kV was utilized to reduce the radiation dose to as low as reasonably achievable. Image quality: Motion/ streaking artifact limits the evaluation of the skull base and posterior crani al fossa. FINDINGS: Parenchyma: 1. Persistent mild pulmona ry chronic microvascular ischemic changes. 2. No mass or hemorrhage. No CT ev idence of acute territorial vascular insult. Extra-axial spaces :No abnormal density. No extra-axial fluid collections Brain volume: Nor mal for age. Ventricles: No hydrocephalus or displacement. Do reddy: No density suggestive of thrombus. Dural sinuses: No abnormal dens ity. Foramen magnum: No mass, Chiari malformation, or basilar invaginati on. Sella: Enlarged, partially empty, mostly CSF filled. Paranasa l/mastoid sinuses: Imaged portions unremarkable. Skull/Scalp: No lytic o r blastic lesions. No fractures. IMPRESSION: 1. No acute intracrani al abnormalities. 2. Persistent mild white matter chronic microvascular ische javon changes. Signed by: Dr. Humble Gracia M.D. on 04/01/2020 11:26 AM D ictated By: HUMBLE GRACIA MD 25 Transcribed By: APOORVA on 04/01/201125 COPY TO: ANITHA POLANCO CHEST SINGLE (PORTABLE)2020-04-01 11:17:00 [place] [address] Patient Name: NOEMY ARGUETA MR #: [id number] : 1935 Age/Sex: 84/M Req #: [id number] Adm Physician: Ordered by: ANITHA POLANCO MD, MD Report #: [id number] Location: ER Room/Bed: Procedure: [id number] DX/CHEST SI NGLE (PORTABLE) Exam Date: 04/01/20 Exam Time: 1025 REPORT STATUS: Signed EXAMINATIO N: CHEST SINGLE (PORTABLE) INDICATION: Y ERMD ORDER [id number] Y COMPARISON: 03/13/2020 FINDINGS: AP view TUBES and LINES: None. LUNGS: Lungs are well inflated. Bandlike reticular opacities in both lung bases, left greater than right, increased. PLEURA: No pleural effusion or pneumothorax. HEART AND MEDIASTIN UM: The cardiac silhouette is within normal limits. Tortuous thoracic aortic aorta with possible ectasia of the ascending thoracic segment remains unchange d. BONES AND SOFT TISSUES: Mild deformity of the posterior right fifth and sixth ribs is unchanged. Soft tissues are unremarkable. UPPER ABDOMEN: No free air under the diaphragm. IMPRESSION: Worsening bandlike reti cular opacities in both lung bases since 03/13/2020 may reflect interval aspira tion or developing multifocal pneumonia. Signed by: Dr. Kirsty Cedeño M.D. on 04/01/2020 11:19 AM Dictated By: KIRSTY JARVIS 1119 Transc ribed By: APOORVA on 04/01/20 1119 COPY TO: ANITHA POLANCO Prothrombin time (PT) in platelet poor plasma by coagulation ukwyt3846-13-01 10:15:00* Test Item Value Reference Range Interpretation Comments Prothrombin Time (test code = 5902-2) 14.3 11.9-14.5 [facility] CenterINR in Platelet poor plasma by Coagulation cusrc1717-34-02 10:15:00* Test Item Value Reference Range Interpretation Comments Prothromb Time International Ratio (test code = 6301-6) 1.05 Oral Anticoagulant Therapy INR Values:1. Low Intensity Therapy 1.5 - 2.02 . Moderate Intensity Therapy 2.0 - 3.03. High Intensity Therapy(1) 2.5 - 3. 54. High Intensity Therapy(2) 3.0 - 4.05. Panic Value INR > 5.0 [facility] CenterActivated partial thromboplastin time (aPTT) in platelet poor plasma by coagulation mopqj3356-85-90 10:15:00* Test Item Value Reference Range Interpretation Comments Activated Partial Thromboplast Time (test code = 72298-2) 30.2 23.8-35.5 [facility] CenterFluoroscopic procedure less than one hour okwnmvsb3319-17-36 10:15:00* Test Item Value Reference Range Interpretation Comments Lactic Acid Level (test code = Lactic Acid Level) 1.5 0.5- 2.0 [facility] CenterBNP Qft-hPml2366-42-03 10:15:00* Test Item Value Reference Range Interpretation Comments B-Type Natriuretic Peptide (test code = 60911-9) 32.1 0-100 [facility] Centererum or plasma thyrotropin measurement by detection limit <= 0.005 miu/l (units/volume)2020-04-01 10:15:00* Test Item Value Reference Range Interpretation Comments Thyroid Stimulating Hormone (TSH) (test code = 95972-7) 1.327 0.350-4.940 [facility] CenterBlood lwpiwje5670-41-11 10:15:00* Test Item Value Reference Range Interpretation Comments Blood Culture (test code = 85079041) NO GROWTH AFTER 5 DAYS, FINAL REPORT [facility] CenterCHEST SINGLE (PORTABLE)2020-03-13 18:24:00 [facility] [address] [address] Patient Name: NOEMY ARGUETA MR #: [id number] : 1935 Age/Sex: 84/M Req #: [id number] Adm Physician: Ordered by: PER AU MD Report #: [id number] Location: ER Room/Bed: Procedure: [id number] DX/CHEST SINGLE (PORTABLE) Exam Date: 03/13/20 Exam Time: 1811 REPORT STATUS: Signed EXAMINATION: CHEST SINGLE (PORTABLE) INDICATION: CHEST CONGESTION COMPARISON: 05/14/2019 FINDINGS: TUBES and LINES: None. LUNGS: Bilateral p atchy densities, right greater than left again observed, suggestive of atelect asis. Mild bilateral perihilar, peribronchial thickening. Mild prominence of t he pulmonary vasculature. PLEURA: No pleural effusion or pneumothorax. HEART AND MEDIASTINUM: The cardiomediastinal silhouette is unremarkable. Mild calcification of the aortic arch. BONES AND SOFT TISSUES: No acute osse ous lesion. Remote healed right-sided rib fractures. UPPER ABDOMEN: No f ree air under the diaphragm. IMPRESSION: Bibasilar atelectasis. Mild bilateral perihilar, upper bronchial thickening may represent a mild viral in fection versus reactive airway disease. Signed by: Dr. Harvey page M.D. on 03/13/2020 6:28 PM Dictated By: LIZ MAGALLANES MD, MD Elec tronically Signed By: LIZ MAGALLANES MD, MD on 03/13/201827 Transcribed By: COM JACOBSEN on 03/13/201827 COPY TO: PER AU MD Bedside Glucose 2019-05-15 11:35:00* Test Item Value Reference Range Interpretation Comments Bedside Glucose (test code = 90126-2) 123 70-120 H Meter ID: [id number] [facility] HospitalClumped Platelets 2019-05-15 08:26:00* Test Item Value Reference Range Interpretation Comments Clumped Platelets (test code = 7796-6) NONE NONE [facility] Centerodium Jvcys3050-50-28 05:59:00* Test Item Value Reference Range Interpretation Comments Sodium Level (test code = 2951-2) 141 136-145 [facility] CenterPotassium Pjldu2973-69-92 05:59:00* Test Item Value Reference Range Interpretation Comments Potassium Level (test code = 2823-3) 3.4 3.5-5.1 L [facility] CenterChloride Kqmty1255-78-40 05:59:00* Test Item Value Reference Range Interpretation Comments Chloride Level (test code = 2075-0) 110 98-107 H [facility] CenterCarbon Dioxide Vojvh4662-08-54 05:59:00* Test Item Value Reference Range Interpretation Comments Carbon Dioxide Level (test code = 2028-9) 23 22-29 [facility] CenterAnion Pzp4903-05-36 05:59:00* Test Item Value Reference Range Interpretation Comments Anion Gap (test code = 81081-5) 11.4 8-16 [facility] CenterBlood Urea Vptjiitj5935-58-43 05:59:00* Test Item Value Reference Range Interpretation Comments Blood Urea Nitrogen (test code = 3094-0) 15 7-26 [facility] CenterCreatinine2019-08-16 05:59:00* Test Item Value Reference Range Interpretation Comments Creatinine (test code = 2160-0) 0.96 0.72-1.25 [facility] CenterBUN/Creatinine Pwyzj6960-51-52 05:59:00* Test Item Value Reference Range Interpretation Comments BUN/Creatinine Ratio (test code = 3097-3) 16 03-24 [facility] CenterEstimat Glomerular Filtration Rate 2019-05-15 05:59:00* Test Item Value Reference Range Interpretation Comments Estimat Glomerular Filtration Rate (test code = 166273642) > 60 >60 Ranges were taken from the National Kidney Disease Education Program and the [facility] [employer] [facility] literature.Reference ranges:60 or greater: Ryubgr56-27 ( for 3 consecutive months): Chronic kidney disease 15 or less: Kidney failureMemorial Hermann Memorial City Medical CenterGlucose Siryf7494-33-39 05:59:00* Test Item Value Reference Range Interpretation Comments Glucose Level (test code = EEW7287) 122 74-118 H [facility] CenterCalcium Zqvuc8382-66-04 05:59:00* Test Item Value Reference Range Interpretation Comments Calcium Level (test code = 69876-0) 7.6 8.4-10.2 L [facility] CenterTotal Chyobwpgv7257-52-94 05:59:00* Test Item Value Reference Range Interpretation Comments Total Bilirubin (test code = 1975-2) 0.3 0.2-1.2 [facility] CenterAspartate Amino Transf (AST/SGOT) 2019-05-15 05:59:00* Test Item Value Reference Range Interpretation Comments Aspartate Amino Transf (AST/SGOT) (test code = Aspartate Amino Transf (AST/SGOT)) 15 5-34 [facility] CenterAlanine Aminotransferase (ALT/SGPT) 2019-05-15 05:59:00* Test Item Value Reference Range Interpretation Comments Alanine Aminotransferase (ALT/SGPT) (test code = 1742-6) 6 0-55 [facility] CenterTotal Lhpujjz3952-52-72 05:59:00* Test Item Value Reference Range Interpretation Comments Total Protein (test code = 2885-2) 4.8 6.5-8.1 L [facility] CenterAlbumin2019-08-16 05:59:00* Test Item Value Reference Range Interpretation Comments Albumin (test code = 1751-7) 2.1 3.5-5.0 L [facility] CenterGlobulin2019-08-16 05:59:00* Test Item Value Reference Range Interpretation Comments Globulin (test code = 07353-9) 2.7 2.3-3.5 [facility] CenterAlbumin/Globulin Pyakr9695-89-51 05:59:00 * Test Item Value Reference Range Interpretation Comments Albumin/Globulin Ratio (test code = 1759-0) 0.8 0.8-2.0 [facility] CenterAlkaline Pvmcvfgxivx9754-98-13 05:59:00* Test Item Value Reference Range Interpretation Comments Alkaline Phosphatase (test code = 6768-6) 56 40-150 [facility] CenterWhite Blood Fgxma1975-27-63 05:58:00* Test Item Value Reference Range Interpretation Comments White Blood Count (test code = 6690-2) 7.18 4.8-10.8 [facility] CenterRed Blood Fcinl4503-23-89 05:58:00* Test Item Value Reference Range Interpretation Comments Red Blood Count (test code = 789-8) 3.55 4.3-5.7 L [facility] CenterHemoglobin2019-08-16 05:58:00* Test Item Value Reference Range Interpretation Comments Hemoglobin (test code = 13210-5) 10.7 14.0-18.0 L [facility] CenterHematocrit2019-08-16 05:58:00* Test Item Value Reference Range Interpretation Comments Hematocrit (test code = 4544-3) 32.4 38.2-49.6 L [facility] CenterMean Corpuscular Rrhfmb8157-73-09 05:58:00* Test Item Value Reference Range Interpretation Comments Mean Corpuscular Volume (test code = 787-2) 91.3 81-99 [facility] CenterMean Corpuscular Tnselgdpju1418-37-15 05:58:00* Test Item Value Reference Range Interpretation Comments Mean Corpuscular Hemoglobin (test code = 785-6) 30.1 28-32 [facility] CenterMean Corpuscular Hemoglobin Concent 2019-05-15 05:58:00* Test Item Value Reference Range Interpretation Comments Mean Corpuscular Hemoglobin Concent (test code = 786-4) 33.0 31-35 [facility] CenterRed Cell Distribution Knjan2769-20-46 05:58:00* Test Item Value Reference Range Interpretation Comments Red Cell Distribution Width (test code = 90250-8) 13.7 11.7 -14.4 [facility] CenterPlatelet Chokr4945-98-11 05:58:00* Test Item Value Reference Range Interpretation Comments Platelet Count (test code = 777-3) 134 140-360 L [facility] CenterNeutrophils (%) (Auto)2019-05-15 05:58:00 * Test Item Value Reference Range Interpretation Comments Neutrophils (%) (Auto) (test code = 31802-3) 68.2 38.7-80.0 [facility] CenterLymphocytes (%) (Auto)2019-05-15 05:58:00 * Test Item Value Reference Range Interpretation Comments Lymphocytes (%) (Auto) (test code = 736-9) 19.8 18.0-39.1 [facility] CenterMonocytes (%) (Auto)2019-05-15 05:58:00* Test Item Value Reference Range Interpretation Comments Monocytes (%) (Auto) (test code = 5905-5) 9.9 4.4-11.3 [facility] CenterEosinophils (%) (Auto)2019-05-15 05:58:00 * Test Item Value Reference Range Interpretation Comments Eosinophils (%) (Auto) (test code = 713-8) 1.3 0.0-6.0 [facility] CenterBasophils (%) (Auto)2019-05-15 05:58:00* Test Item Value Reference Range Interpretation Comments Basophils (%) (Auto) (test code = 706-2) 0.4 0.0-1.0 [facility] CenterIM GRANULOCYTES %2019-05-15 05:58:00* Test Item Value Reference Range Interpretation Comments IM GRANULOCYTES % (test code = IM GRANULOCYTES %) 0.4 0.0- 1.0 [facility] CenterNeutrophils # (Auto)2019-05-15 05:58:00* Test Item Value Reference Range Interpretation Comments Neutrophils # (Auto) (test code = 751-8) 4.9 2.1-6.9 [facility] CenterLymphocytes # (Auto)2019-05-15 05:58:00* Test Item Value Reference Range Interpretation Comments Lymphocytes # (Auto) (test code = 57731-1) 1.4 1.0-3.2 [facility] CenterMonocytes # (Auto)2019-05-15 05:58:00* Test Item Value Reference Range Interpretation Comments Monocytes # (Auto) (test code = 742-7) 0.7 0.2-0.8 [facility] CenterEosinophils # (Auto)2019-05-15 05:58:00* Test Item Value Reference Range Interpretation Comments Eosinophils # (Auto) (test code = 711-2) 0.1 0.0-0.4 [facility] CenterBasophils # (Auto)2019-05-15 05:58:00* Test Item Value Reference Range Interpretation Comments Basophils # (Auto) (test code = 704-7) 0.0 0.0-0.1 [facility] CenterAbsolute Immature Granulocyte (auto 2019-05-15 05:58:00* Test Item Value Reference Range Interpretation Comments Absolute Immature Granulocyte (auto (faye t code = Absolute Immature Granulocyte (auto) 0.03 0-0.1 [facility] CenterBlood Tjcmjhg8038-18-18 23:56:00* Test Item Value Reference Range Interpretation Comments Blood Culture (test code = 12723658) NO GROWTH AFTER 24 HOURS [facility] CenterHIPS BILAT TWO VWS(+/- PELVIS)2019-05-14 17:32:00 [facility] [address] [address] Patient Name: NOEMY ARGUETA MR #: [id number] : 1935 Age/Sex: 83/M Req #: [id number] Adm Physician: HAZEL SHAW MD Ordered by: HAZEL SHAW MD Report #: [id number] Location: MED/SURG2 Room/Bed: [facility] Procedure: 2450-2754 D X/HIPS BILAT TWO VWS(+/- PELVIS) Exam [...] No acute osseous abnormality. Signed by: Mac Ugarte on 05/14/2019 5:33 PM Dictated By: MAC UGARTE MD 173 3 Transcribed By: APOORVA on 05/14/19 1733 COPY TO: HAZEL SHAW MD Creatine Kinase FX4702-15-02 09:00:00* Test Item Value Reference Range Interpretation Comments Creatine Kinase MB (test code = 99551-2) 5.60 0-5.0 H [facility] CenterTroponin O0028-80-13 09:00:00* Test Item Value Reference Range Interpretation Comments Troponin I (test code = AES1277) 0.015 0-0.300 [facility] CenterCreatine Etutzw7231-12-26 08:35:00* Test Item Value Reference Range Interpretation Comments Creatine Kinase (test code = 2157-6) 257 30-200 H [facility] CenterUrine HFA1163-03-41 03:56:00* Test Item Value Reference Range Interpretation Comments Urine WBC (test code = 5821-4) 0-5 0-5 [facility] CenterUrine IBW3388-93-31 03:56:00* Test Item Value Reference Range Interpretation Comments Urine RBC (test code = 08609-9) 0-5 0-5 [facility] CenterUrine Uysihnwu5295-59-27 03:56:00* Test Item Value Reference Range Interpretation Comments Urine Bacteria (test code = 74240-7) RARE NONE [facility] CenterUrine Epithelial Pockh1536-27-47 03:56:00 * Test Item Value Reference Range Interpretation Comments Urine Epithelial Cells (test code = 43784-4) FEW NONE [facility] CenterUrine Ahdcx3720-66-98 03:50:00* Test Item Value Reference Range Interpretation Comments Urine Color (test code = 5778-6) YELLOW YELLOW [facility] CenterUrine Dtpwqqm9790-10-80 03:50:00* Test Item Value Reference Range Interpretation Comments Urine Clarity (test code = 24606-9) CLEAR CLEAR [facility] CenterUrine Specific Kmogyxr6284-15-01 03:50:00 * Test Item Value Reference Range Interpretation Comments Urine Specific [place] (test code = 5811-5) <=1.005 1.010-1.02 5 [facility] CenterUrine kV8343-37-51 03:50:00* Test Item Value Reference Range Interpretation Comments Urine pH (test code = 99150-9) 6 5-7 [facility] CenterUrine Leukocyte Lcmnywky8708-76-15 03:50:00* Test Item Value Reference Range Interpretation Comments Urine Leukocyte Esterase (test code = 72524-5) NEGATIVE NEGATIV E [facility] CenterUrine Momqtlq8911-35-06 03:50:00* Test Item Value Reference Range Interpretation Comments Urine Nitrite (test code = 34008-3) NEGATIVE NEGATIVE [facility] CenterUrine Gjyfggg2344-12-40 03:50:00* Test Item Value Reference Range Interpretation Comments Urine Protein (test code = 47044-4) NEGATIVE NEGATIVE [facility] Glucose (UA)2019-05-14 03:50:00* Test Item Value Reference Range Interpretation Comments Urine Glucose (UA) (test code = 80355-2) NEGATIVE NEGATIVE [facility] Zqjqerq4614-24-79 03:50:00* Test Item Value Reference Range Interpretation Comments Urine Ketones (test code = 53054-9) NEGATIVE NEGATIVE [facility] Pxnwhsrbgobs5565-18-24 03:50:00* Test Item Value Reference Range Interpretation Comments Urine Urobilinogen (test code = 97800-0) 0.2 0.2-1 [facility] Mnvqajrxm1077-73-19 03:50:00* Test Item Value Reference Range Interpretation Comments Urine Bilirubin (test code = 1977-8) NEGATIVE NEGATIVE [facility] Hhwbu3335-61-25 03:50:00* Test Item Value Reference Range Interpretation Comments Urine Blood (test code = 72343-2) NEGATIVE NEGATIVE [facility] Opiates Qmvmtg0142-30-24 03:49:00* Test Item Value Reference Range Interpretation Comments Urine Opiates Screen (test code = 78735-8) POSITIVE NEGATIVE H ALL TESTS PERFORMED MANUALLY ON [employer] TOX/SEE TEST This test provides only a sc reen. Positive results should be repeated by a confirmatory test.[facility] Barbiturates Glbuno9064-06-64 03:49:00* Test Item Value Reference Range Interpretation Comments Urine Barbiturates Screen (test code = 802218916) NEGATIVE NEGA TIVE [facility] CenterUrine Phencyclidine Hyuwkn0604-26-55 03:49:00* Test Item Value Reference Range Interpretation Comments Urine Phencyclidine Screen (test code = 73645-4) NEGATIVE NEGAT VALENTINE [facility] Amphetamines Kgcfsr7024-54-92 03:49:00* Test Item Value Reference Range Interpretation Comments Urine Amphetamines Screen (test code = 95060-4) NEGATIVE NEGATI VE [facility] CenterUrine Methamphetamines Esqhjb5131-68-85 03:49:00* Test Item Value Reference Range Interpretation Comments Urine Methamphetamines Screen (test code = Urine Metha mphetamines Screen) NEGATIVE NEGATIVE [facility] CenterUrine Benzodiazepines Epjrru0260-65-05 03:49:00* Test Item Value Reference Range Interpretation Comments Urine Benzodiazepines Screen (test code = 59418-7) POSITIVE NEG ATIVE H This test provides only a screen. Positive results should be repeated by a confi rmatory test.[facility] CenterUrine Cocaine Screen 2019-05-14 03:49:00* Test Item Value Reference Range Interpretation Comments Urine Cocaine Screen (test code = 3398-5) NEGATIVE NEGATIVE [facility] CenterUrine Cannabinoids Tbztre6849-00-76 03:49:00* Test Item Value Reference Range Interpretation Comments Urine Cannabinoids Screen (test code = 06506-8) NEGATIVE NEGATI VE THESE RESULTS ARE FOR MEDICAL TREATMENT ONLYTHIS REPORT CONTAINS UNCONFIR MED SCREENING RESULTS*POSITIVE RESULTS WILL BE CONFIRMED BY REFERENCE LAB UPON R EQUEST CUT-OFFDRUG CLASS CONCENTRATION ng/mLAmphetamines 1000Methamphetamines 1000Cocaine 300Opiate 300Phencyc lidine 25Cannabinoid 50Barbiturates 300Benzodiazepine 300Methadone 300[facility] HospitalUrine Methadone Rksimn5704-05-12 03:49:00* Test Item Value Reference Range Interpretation Comments Urine Methadone Screen (test code = 18206-5) NEGATIVE NEGATIVE THESE RESULTS ARE FOR MEDICAL TREATMENT ONLYTHIS REPORT CONTAINS UNCONFIR MED SCREENING RESULTS*POSITIVE RESULTS WILL BE CONFIRMED BY REFERENCE LAB UPON R EQUEST CUT-OFFDRUG CLASS CONCENTRATION ng/mLAmphetamines 1000Methamphetamines 1000Cocaine Metabolite 300Opiate 300Phencyc lidine 25Cannabinoid 50Barbiturates 300Benzodiazepine 300Methadone 300[facility] HospitalCT CERVICAL SPINE TM7513-73-87 00:55:00 [address] [place] [address] Patient Name: NOEMY ARGUETA MR #: [id number] : 1935 Age/Sex: 83/M Req #: [id number] [facility] Physician: Ordered by: CINDY BURROWS MD Report #: [id number] Location: ER Room/Bed: Procedure: 43 CT/CT CERVICAL [...] BURROWS MD CHEST SINGLE (PORTABLE) 2019-05-14 00:53:00 [place] [address] Patient Name: NOEMY ARGUETA MR #: [id number] : 1935 Age/Sex: 83/M Req #: [id number] Adm Physician: Ordered by: CINDY BURROWS MD Report #: [id number] Location: ER Room/Bed: Procedure: 60 DX/CHEST SINGLE [...] COPY TO: CINDY BURROWS MD CT BRAIN GB5502-92-40 00:47:00 [place] [address] Patient Name: NOEMY ARGUETA MR #: [id number] : 1935 Age/Sex: 83/M Req #: [id number] Adm Physician: Ordered by: CINDY BURROWS MD Report #: [id number] Location: ER Room/Bed: Procedure: CT/CT BRAIN WO [...] COPY TO: CINDY BURROWS MD Lactic Acid Kcpuc8949-07-31 00:36:00* Test Item Value Reference Range Interpretation Comments Lactic Acid Level (test code = Lactic Acid Level) 18.7 4.5- 19.8 [facility] CenterCHES 2 FTCEC7949-94-23 17:12:00 [place] [address] Patient Name: NOEMY ARGUETA MR #: [id number] : 1935 Age/Sex: 83/M Req #: [id number] Adm Physician: Ordered by: ELMIRA HUGHES MD Report #: [id number] Location: OR Room/Bed: Procedure: 9552-5563 DX/CH EST 2 VIEWS Exam Date: 03/11/19 [...] on 03/11/191718 COPY TO: ELMIRA HUGHES MD XQFXSI5780-97-04 17:11:00* Test Item Value Reference Range Interpretation Comments GLUBED (test code = GLUBED) 98 mg/dL 74-106 N [facility] SMFMSM4355-75-25 12:12:00* Test Item Value Reference Range Interpretation Comments GLUBED (test code = GLUBED) 163 mg/dL 74-106 H [facility] HFFXGO8446-06-63 08:00:00* Test Item Value Reference Range Interpretation Comments GLUBED (test code = GLUBED) 90 mg/dL 74-106 N [facility] certified [facility] BASIC METABOLIC BBMYU3130-23-65 05:35:00* Test Item Value Reference Range Interpretation [...] CK) 2348 IUnit/L 26-208 H BASIC METABOLIC NPIHU1602-81-10 05:16:00* Test Item Value Reference Range Interpretation [...] (CK) (test code = CK) IUnit/L 26-208 BOEAEK2434-56-29 20:59:00* Test Item Value Reference Range Interpretation Comments GLUBED (test code = GLUBED) 125 mg/dL 74-106 H [facility] LSMMAB0683-15-33 16:45:00* Test Item Value Reference Range Interpretation Comments GLUBED (test code = GLUBED) 107 mg/dL 74-106 H [facility] URINALYSIS BXNXVMQF1040-01-53 13:53:00* Test Item Value Reference Range Interpretation [...] FEW #/HPF NONE Urine Source? Clean CatchURINALYSIS LXSHXIPJ5859-43-10 13:49:00* Test Item Value Reference Range Interpretation [...] BACU) per HPF NONE Urine Source? Clean CwfuzVVUVHD8808-15-29 12:47:00* Test Item Value Reference Range Interpretation Comments GLUBED (test code = GLUBED) 114 mg/dL 74-106 H [facility] [id number] 08:17:00* Test Item Value Reference Range Interpretation Comments GLUBED (test code = GLUBED) 96 mg/dL 74-106 N [facility] BASIC METABOLIC [id number] 08:12:00* Test Item Value Reference Range Interpretation [...] CK) 5208 IUnit/L 26-208 H BASIC METABOLIC [id number] 07:39:00* Test Item Value Reference Range Interpretation [...] (CK) (test code = CK) IUnit/L 26-208 [id number] 21:50:00* Test Item Value Reference Range Interpretation Comments GLUBED (test code = GLUBED) 117 mg/dL 74-106 H Performed by certified impregnator operator at [facility] - CT L-SPINE W/O [id number] 19:37:00 Name: NOEMY ARGUETA [facility] : 1935 Age/S: 83 / M [address] [facility] Unit #: [id number] Loc: [place] [address] Phys: Shannon Corey MD Acct: [id number] Dis Date: Status: ADM IN PHONE #: [phone] Exam Date: 01/21/20191918 FAX #: [phone] Reason: H/o fall EXAMS: CPT CODE: [id number] CT L-SPINE W/O CONTRAST 47539 REASON FOR EXAM: H/o fall EXAM ORDER [...] W/O CONTRAST 2019-01-21 19:35:00 Name: NOEMY ARGUETA [facility] : 1935 Age/S: 83 / M [address] [facility] Unit #: [id number] Loc: [place] [address] Phys: Shannon Corey MD Acct: [id number] Dis Date: Status: ADM IN PHONE #: [phone] Exam Date: 01/21/20191918 FAX #: [phone] Reason: H/o fall EXAMS: CPT CODE: [id number] CT T-SPINE W/O CONTRAST 18667 REASON FOR EXAM: H/o fall EXAM ORDER [...] of a small right pleural effusion at 193 Reported and signed by: Fernando Davis M.D. CC: David Porter MD; Shannon Corey MD; Colleen Shaw MD Technologist:RT MARGO(R) CT CTDI: DLP: Trnscb Date/Time: 01/21/2019 (1935) t.SDR.VTL Orig Print D/T: S: 01/21/2019 (1937) CTDI: DLP: PAGE 1 Signed Report - CT C-SPINE W/O CONTRAST 2019-01-21 19:34:00 Name: NOEMY ARGUETA [facility] : 1935 Age/S: 83 / M [address] [facility] Unit #: [id number] Loc: [place] [address] Phys: Shannon Corey MD Acct: [id number] Dis Date: Status: ADM IN PHONE #: [phone] Exam Date: 01/21/2019 191 FAX #: [phone] Reason: H/o fall EXAMS: CPT CODE: [id number] CT C-SPINE W/O CONTRAST 60976 REASON FOR EXAM: H/o fall EXAM ORDER [...] (1936) CTDI: DLP: PAGE 1 Signed Report [id number] 15:53:00* Test Item Value Reference Range Interpretation Comments GLUBED (test code = GLUBED) 120 mg/dL 74-106 H Performed by certified impregnator operator at [facility] - XR RIBS UNI W/CXR 3+V [id number] 12:17:00 FAX: Obey De Souza MD [phone] [place]: B St: ADM FAX: Y David Porter MD [phone] Name: NOEMY ARGUETA [facility] : 1935 Age/S: 83/M [address] [facility] Unit [facility]: [id number] Loc: V.[address] [place] [address] Phys: Obey De Souza MD Acct: [id number] Dis Date: Status: ADM IN PHONE #: [phone] Exam Date: 01/20/2019 2255 FAX #: [phone] Reason: rib pain, fall EXAMS: CPT CODE: [id number] XR RIBS UNI W/CXR 3+[place] [address] HISTORY: Pain after fall. COMPARISON: Chest x-ray [...] MD Technologist: RT OLIVIER Trnscrd Date/Time/By: 01/21/2019 (09 15) : By: [email or web address] Orig Print D/T: S: 01/22/2019 (1147) PAGE 1 Signed Report [id number] 12:13:00* Test Item Value Reference Range Interpretation Comments GLUBED (test code = GLUBED) 114 mg/dL 74-106 H Performed by certified impregnator operator at [facility] - CT HEAD/BRAIN W/O [id number] 12:02:00 Name: NOEMY ARGUETA [facility] : 1935 Age/S: 83 / M [address] [facility] Unit #: [id number] Loc: [place] [address] Phys: Obey De Souza MD Acct: [id number] Dis Date: Status: ADM IN PHONE #: [phone] Exam Date: 01/20/2019 2300 FAX #: [phone] Reason: fall/AMS EXAMS: CPT CODE: [id number] CT HEAD/BRAIN W/O CONT 96719 HISTORY: Confusion. COMPARISON: None available. CT brain [...] (1202) t.SDR.TH4 Orig Print D/T: S: 01/21/2019 (2333) CTDI: DLP: PAGE 1 Signed Report [id number] 07:52:00* Test Item Value Reference Range Interpretation Comments GLUBED (test code = GLUBED) 100 mg/dL 74-106 N Performed by certified impregnator operator at [facility] BASIC METABOLIC [id number] 23:39:00* Test Item Value Reference Range Interpretation [...] CK) 7841 IUnit/L 26-208 H BASIC METABOLIC [id number] 23:09:00* Test Item Value Reference Range Interpretation [...] code = CK) IUnit/L 26-208 BASIC METABOLIC [id number] 23:02:00* Test Item Value Reference Range Interpretation [...] code = CK) IUnit/L 26-208 CBC W/AUTO [id number] 22:47:00* Test Item Value Reference Range Interpretation [...] (test code = MDIFF) NO CBC W/AUTO [id number] 22:39:00* Test Item Value Reference Range Interpretation [...] BA#) K/mm3 0.0-0.2 XR RIBS UNILATERAL/ PA [id number] 14:04:37Procedures: XR RIBS UNILATERAL/ PA CHESTExam Date: [...] By: AG WATSONDate: 02/23/2018 14:04MRI BRAIN WO [place] [address] Patient Name: NOEMY ARGUETA MR #: [id number] : 1935 Age/Sex: 82/M Req #: [id number] Adm Physician: KLAUDIA ARZOLA MD Ordered by: CARISSA ROSAS MD Report #: [id number] Location: [facility] Room/Bed: [place] [address] Procedure: [id number] MRI /MRI BRAIN WO Exam Date: 06/28/17 [...] on 06/28/172230 COPY TO: CARISSA ROSAS MD [facility] (PORTABLE) [place] [address] Patient Name: NOEMY ARGUETA MR #: [id number] : 1935 Age/Sex: 82/M Req #: [id number] Adm Physician: Ordered by: ABEL DE LEÓN Report #: [id number] Location: ER Room/Bed: Procedure: [id number] DX/CHEST SINGLE (PORTABLE) Ex am Date: 06/28/17 [...] TO: ABEL DE LEÓN CT BRAIN WO [place] [address] Patient Name: NOEMY ARGUETA MR #: [id number] : 1935 Age/Sex: 82/M Req #: [id number] Adm Physician: Ordered by: ABEL DE LEÓN Report #: [id number] Location: ER Room/Bed: Procedure: [id number] CT/CT BRAIN WO Exam Date: Exam Time: [...] TO: SALTY DE LEÓN CT BRAIN WO [place] [address] Patient Name: NOEMY ARGUETA MR #: [id number] : 1935 Age/Sex: 82/M Req #: [id number] Adm Physician: Ordered by: MELANIE PRAKASH MD Report #: [id number] Location: ER Room/Bed: Procedure: [id number] CT/CT BRAIN WO Exam Date: Exam Time: [...]
== END 2020-04-02 21:44 | disposition home or self-care (01) | DRG 195 ==
LOC: ER 11:00 → ERHOLD 12:13 → UNDOADMIN 12:23 → ERHOLD 12:24 → UNDOADMIN 12:24 → UNDODISIN 04-02 21:00
PROVIDERS: ADMIT Internal Medicine; ATTEND Internal Medicine
DX: J18.9 Pneumonia, unspecified organism (principal); R53.1 Weakness; I48.0 Paroxysmal atrial fibrillation; W07.XXXA Fall from chair, initial encounter; Z91.040 Latex allergy status; Z85.9 Personal history of malignant neoplasm, unspecified; Z96.652 Presence of left artificial knee joint; Z11.59 Encounter for screening for other viral diseases; H91.90 Unspecified hearing loss, unspecified ear; R53.81 Other malaise
CPT/HCPCS: 36415; 70450; 71045; 80053; 81001; 82550; 82553; 83605; 83735; 83880; 84443; 84484; 85025; 85610; 85730; 87040; 87086; 93005; 99284; J0456; J0696; J2405; J2543; J7030; U0002

== ENCOUNTER → 2020-05-11 | Outpatient (CLI) | payer MEDICARE ==
[~2020-05-11] MED LIST changes: +ACETAMINOPHEN-118 ML; +CHLORDIAZEPOXID10 MG; +GABAPENTIN600 MG; +ONDANSETRON; +SMZ/TMP; +SPIRONOLACTONE25 MG
--- NOTE | 2020-05-11 18:19 | Diagnostic Imaging Report ---
EXAM: Abdomen Radiograph 1 View(s) INDICATION: Esophagitis and constipation. COMPARISON: None FINDINGS: No abnormalities in the lower chest. No lines or tubes. There is moderate stool burden throughout the colon. No dilated loops of small bowel. No abnormal abdominal calcifications. No abnormal soft tissue masses. Status post cholecystectomy. No pneumoperitoneum. No acute osseous abnormality. Multilevel degenerative changes in the lumbar spine and pelvis. IMPRESSION: Nonobstructive bowel gas pattern with moderate stool burden throughout the colon. Signed by: Riley Valle MD on 05/11/2020 6:16 PM
== END ==
LOC: RAD 17:07
DX: K20.8 Other esophagitis (principal); K59.00 Constipation, unspecified
CPT/HCPCS: 74018

== ENCOUNTER → 2020-05-12 | Outpatient (CLI) | payer MEDICARE ==
[~2020-05-12] MED LIST changes: +IOPAMIDOL 370 MG/ML 200 ML INFUS..BTL INJ ONE; +SODIUM CHLORIDE 0.9% 50ML 50 ML ONE
[2020-05-12 17:53] LABS: CREATININE, SERUM 1.16 mg/dL (0.72-1.25)
--- NOTE | 2020-05-12 20:08 | Diagnostic Imaging Report ---
EXAM: CT Abdomen and Pelvis WITH contrast INDICATION: Abdominal pain and constipation. COMPARISON: None. TECHNIQUE: Abdomen and pelvis were scanned utilizing a multidetector helical scanner from the lung base to the pubic symphysis after administration of IV contrast. Coronal and sagittal reformations were obtained. Routine protocol was performed. Scan was performed when during portal venous phase. IV CONTRAST: 100 mL of Isovue 370 ORAL CONTRAST: None COMPLICATIONS: None RADIATION DOSE: Total DLP: 548.95 mGy*cm Estimated effective dose: (DLP x 0.015 x size factor) mSv CTDIvol has been reviewed. It is below the limits set by the Radiation Protocol Committee (RPC). Dose modulation, iterative reconstruction, and/or weight based adjustment of the mA/kV was utilized to reduce the radiation dose to as low as reasonably achievable. FINDINGS: LINES and TUBES: None. LOWER THORAX: Normal size heart with atherosclerotic calcification of the coronary vessels. The lower thorax is otherwise normal. HEPATOBILIARY: No focal hepatic lesions. No biliary ductal dilation. GALLBLADDER: Status post cholecystectomy. No extrahepatic biliary ductal dilatation. SPLEEN: No splenomegaly. PANCREAS: No focal masses or ductal dilatation. ADRENALS: No adrenal nodules KIDNEYS/URETERS: There is a nonobstructive 5 mm stone in the inferior pole of the left kidney. There are multiple exophytic cysts in the right kidney. There is a hyperdense exophytic lesion in the inferior pole of the right kidney which measures approximately 7 mm (series 2 image 41). No hydronephrosis bilaterally. GI TRACT: There is moderate stool burden throughout the colon with air-fluid levels seen in the transverse colon. No abnormal distention, wall thickening, or evidence of bowel obstruction. Appendix is normal. PELVIC ORGANS/BLADDER: Multiple seeds in the prostate gland. LYMPH NODES: No lymphadenopathy. VESSELS: Unremarkable. PERITONEUM / RETROPERITONEUM: No free air or fluid. BONES: Multilevel degenerative changes of the spine with no suspicious osteolytic or osteoblastic lesions. There are multiple healed right rib fractures. SOFT TISSUES: Unremarkable. IMPRESSION: 1. Moderate stool burden throughout the colon with air-fluid levels seen in the transverse colon. This can present clinically as constipation. However, no evidence of bowel obstruction or inflammation. 2. Hyperdense exophytic lesion in the inferior pole of the right kidney which measures approximately 7 mm. This may represent hyperdense cysts, however a nonemergent CT of the abdomen/pelvis (renal mass protocol) is recommended to exclude possibility of malignancy. 3. Nonobstructive left nephrolithiasis. Signed by: Riley Valle MD on 05/12/2020 8:04 PM
== END ==
LOC: CT 16:56
PROVIDERS: ATTEND Internal Medicine Gastroenterology
DX: K20.8 Other esophagitis (principal); K59.00 Constipation, unspecified
CPT/HCPCS: 36415; 74177; 82565; 84520; Q9967

== ENCOUNTER 2020-05-20 15:22 | Emergency (ER) | payer MEDICARE ==
[~2020-05-20] VITALS: Ht 177.8 cm; Wt 95.3 kg
[~2020-05-20 15:22] MED LIST changes: -IOPAMIDOL 370 MG/ML 200 ML INFUS..BTL INJ ONE; -SODIUM CHLORIDE 0.9% 50ML 50 ML ONE
[2020-05-20] MEDS ORDERED: PROMETHAZINE 12.5MG/ NACL 0.9% 12.5 MG/50 ML BAG IV ONE (15:30)
[2020-05-20] MEDS ORDERED: ONDANSETRON HCL INJ 2MG/ML 2ML 2 MG/ML VIAL IV STA (15:30)
[2020-05-20] MEDS ORDERED: PANTOPRAZOLE 40 MG 10ML VIAL IV STA (15:30)
[2020-05-20] MEDS ORDERED: SODIUM CHLORIDE 0.9% 1000ML 1,000 ML IV STA (15:30)
[2020-05-20 15:43] LABS: BASOPHILS # (AUTO) 0.1 (0.0-0.1); BASOPHILS % 0.6 % (0.0-1.0); EOSINOPHILS # (AUTO) 0.1 (0.0-0.4); EOSINOPHILS % 0.6 % (0.0-6.0); HEMATOCRIT 45.8 % (38.2-49.6); HEMOGLOBIN 15.1 g/dL (14.0-18.0); LYMPHOCYTES % 24.4 % (18.0-39.1); MEAN CORPUSCULAR VOLUME 90.9 fL (81-99); MONOCYTES # (AUTO) 0.7 (0.2-0.8); MONOCYTES % 8.1 % (4.4-11.3); NEUTROPHILS # (AUTO) 5.5 (2.1-6.9); NEUTROPHILS % 65.9 % (38.7-80.0); PLATELET COUNT 187 x10e3/uL (140-360); RED BLOOD COUNT 5.04 x10e6/uL (4.3-5.7)
[2020-05-20] MEDS ORDERED: DIATRIZOATE MEGL/DIATRIZOA SOD 30 ML BTL PO ONE (15:55)
[2020-05-20 16:05] LABS: ALBUMIN/GLOBULIN RATIO 1.1 (0.8-2.0); ANION GAP 17.1 mmol/L (8-16); CALCIUM 9.6 mg/dL (8.4-10.2); CREATININE, SERUM 1.31 mg/dL (0.72-1.25); MAGNESIUM 1.5 MG/DL (1.3-2.1); POTASSIUM 4.1 mmol/L (3.5-5.1)
[2020-05-20 17:22] LABS: BILIRUBIN,URINE NEGATIVE (NEGATIVE); CLARITY,URINE SL CLOUDY (CLEAR); COLOR,URINE YELLOW (YELLOW); KETONES,URINE NEGATIVE (NEGATIVE); LEUKOCYTE ESTERASE ,URINE NEGATIVE (NEGATIVE); NITRITE,URINE NEGATIVE (NEGATIVE); PROTEIN,URINE DIPSTICK NEGATIVE (NEGATIVE); URINE UROBILINOGEN 0.2 mg/dL (0.2 - 1)
--- NOTE | 2020-05-20 17:26 | Emergency Department Note ---
History of Present Illnes History of Present Illness Chief Complaint: Abdominal Complaints History of Present Illness This is a 84 year old male C/O OF CHRONIC CONSTIPATION, WORSE X 5 DAYS W/NAUSEA. PATIENT IS TAKING PHENERGAN, ZOFRAN, COLACE, LINZESS ON A DAILY BASIS. DENIES ABDOMEN OR RECTAL PAIN 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 Arrival Mode: Car Additional Treatment HIGHWAY ENGINEER: NONE Nanotechnology Engineering Technologist Required: No Onset (how long ago): day(s) (5) Radiation: Reports non-radiation Severity: moderate Onset quality: gradual Timing of current episode: constant Progression: worsening Chronicity: chronic Context: Denies recent illness Relieving factors: none Exacerbating factors: none Associated symptoms: Reports denies other symptoms Past Medical/Family History Physician Review I have reviewed the patient's past medical and family history. Any updates have been documented here. Past Medical History Recent Fever: No Clinical Suspicion of Infectio: No New/Unexplained Change in Ment: No Past Medical History: A-Fib, Cancer Other Medical History: VERTIGO ABNORMAL HEART RATE RLS Past Surgical History: Cholecysctectomy, Knee Replacement Other Surgery: LEFT KNEE REPLACEMENT HERNIA REPAIR PILONIDAL CYST REMOVAL Social History Smoking Cessation: Never Smoker Counseling Performed: No Alcohol Use: None Any Illegal Drug Use: No TB Exposure/Symptoms: No Physically hurt or threatened: No Family History Family history of heart diseas: No Other Last Tetanus: UTD Any Pre-Existing Lines (PICC,: No Review of Systems Review of Systems Constitutional: Reports no symptoms EENTM: Reports no symptoms Cardiovascular: Reports no symptoms Respiratory: Reports no symptoms Gastrointestinal: Reports as per HPI Genitourinary: Reports no symptoms Musculoskeletal: Reports no symptoms Integumentary: Reports no symptoms Neurological: Reports no symptoms Psychological: Reports no symptoms Endocrine: Reports no symptoms Hematological/Lymphatic: Reports no symptoms Physical Exam Related Data Allergies: Coded Allergies: latex (Verified Allergy, Unknown, RASH, 06/28/17) Triage Vital Signs Vital Signs Date Time Temp Pulse Resp B/P (MAP) Pulse Ox O2 Delivery O2 Flow Rate FiO2 05/20/20 15:27 98.8 105 18 116/73 100 Room Air Vital signs reviewed: Yes Physical Exam CONSTITUTIONAL Constitutional: Present well-developed, Present well-nourished HENT HENT: Present normocephalic, Present atraumatic, Present oropharynx clear/moist, Present nose normal HENT L/R: Present left ext ear normal, Present right ext ear normal EYES Eyes: Reports PERRL, Reports conjunctivae normal NECK Neck: Present ROM normal PULMONARY Pulmonary: Present effort normal, Present breath sounds normal CARDIOVASCULAR Cardiovascular: Present regular rhythm, Present heart sounds normal, Present capillary refill normal, Present normal rate GASTROINTESTINAL Abdominal: Present soft, Present nontender, Present bowel sounds normal; Absent tender, Absent mass, Absent rebound, Absent hernia, Absent left CVA tenderness, Absent right CVA tenderness GENITOURINARY Genitourinary: Present exam deferred SKIN Skin: Present warm, Present dry MUSCULOSKELETAL Musculoskeletal: Present ROM normal NEUROLOGICAL Neurological: Present alert, Present oriented x 3, Present no gross motor or sensory deficits PSYCHOLOGICAL Psychological: Present mood/affect normal, Present judgement normal Results Laboratory Result Diagram: 05/20/20 1536 05/20/20 1536 Laboratory Laboratory Tests Test 05/20/20 16:58 05/20/20 15:36 White Blood Count 8.36 x10e3/uL (4.8-10.8) Red Blood Count 5.04 x10e6/uL (4.3-5.7) Hemoglobin 15.1 g/dL (14.0-18.0) Hematocrit 45.8 % (38.2-49.6) Mean Corpuscular Volume 90.9 fL (81-99) Mean Corpuscular Hemoglobin 30.0 pg (28-32) Mean Corpuscular Hemoglobin Concent 33.0 g/dL (31-35) Red Cell Distribution Width 14.0 % (11.7-14.4) Platelet Count 187 x10e3/uL (140-360) Neutrophils (%) (Auto) 65.9 % (38.7-80.0) Lymphocytes (%) (Auto) 24.4 % (18.0-39.1) Monocytes (%) (Auto) 8.1 % (4.4-11.3) Eosinophils (%) (Auto) 0.6 % (0.0-6.0) Basophils (%) (Auto) 0.6 % (0.0-1.0) Neutrophils # (Auto) 5.5 (2.1-6.9) Lymphocytes # (Auto) 2.0 (1.0-3.2) Monocytes # (Auto) 0.7 (0.2-0.8) Eosinophils # (Auto) 0.1 (0.0-0.4) Basophils # (Auto) 0.1 (0.0-0.1) Absolute Immature Granulocyte (auto 0.03 x10e3/uL (0-0.1) Sodium Level 140 mmol/L (136-145) Potassium Level 4.1 mmol/L (3.5-5.1) Chloride Level 104 mmol/L (98-107) Carbon Dioxide Level 23 mmol/L (22-29) Anion Gap 17.1 mmol/L (8-16) Blood Urea Nitrogen 12 mg/dL (7-26) Creatinine 1.31 mg/dL (0.72-1.25) Estimat Glomerular Filtration Rate 52 ML/MIN (60-) BUN/Creatinine Ratio 9 (6-25) Glucose Level 120 mg/dL (74-118) Calcium Level 9.6 mg/dL (8.4-10.2) Magnesium Level 1.5 MG/DL (1.3-2.1) Total Bilirubin 0.5 mg/dL (0.2-1.2) Aspartate Amino Transf (AST/SGOT) 15 IU/L (5-34) Alanine Aminotransferase (ALT/SGPT) 10 IU/L (0-55) Alkaline Phosphatase 54 IU/L (40-150) Total Protein 7.6 g/dL (6.5-8.1) Albumin 4.0 g/dL (3.5-5.0) Globulin 3.6 g/dL (2.3-3.5) Albumin/Globulin Ratio 1.1 (0.8-2.0) Lab results reviewed: Yes Imaging Imaging results reviewed: Yes Assessment & Plan Medical Decision Making MDM SEEMS TO BE CHRONIC CONSTIPATION BUT SENT FROM DR Hector ARZOLA[facility]S [facility] - WANTS CT ABD/PELVIS. CHECK CBC, CHEM, UA/CX AND CT - EVAL FOR ANEMIA, RENAL INSUFF, ELECTROLYTE ABNL, UTI, SBO, FECAL IMPACTION Reassessment Reassessment CT UNREMARKABLE EXCEPT MOD STOOL BURDEN AND RIGHT RENAL MASS WHICH NEEDS F/U - DC HOME WITH RX FOR GOLYTELY, RECOMMEND ENEMAS ALSO, F/U Hector ARZOLA AND PCP, DR Radha AGUIAR Assessment & Plan Final Impression: (1) Constipation (2) Renal mass Depart Disposition: HOME, SELF-CARE Last Vital Signs Date Time Temp Pulse Resp B/P (MAP) Pulse Ox O2 Delivery O2 Flow Rate FiO2 05/20/20 16:51 62 18 138/76 100 Room Air 05/20/20 15:27 98.8 Home Meds Reported Medications [Smz/Tmp] No Conflict Check 04/02/20 [Ondansetron] No Conflict Check 04/02/20 Chlordiazepoxide Hcl (CHLORDIAZEPOXIDE HCL) 10 Mg Capsule 04/02/20 Acetaminophen With Codeine (ACETAMINOPHEN-CODEINE ELIXIR) 118 Ml Elixir 04/02/20 Spironolactone (SPIRONOLACTONE) 25 Mg Tablet 04/02/20 Gabapentin (GABAPENTIN) 600 Mg Tablet 04/02/20 Azithromycin (Z-SHERRON) 250 Mg Tablet, 250 MG PO UD, #1 UDPKT Z-Pack 05/15/19 Pantoprazole Sodium* (PROTONIX) 40 Mg Tablet.dr, 40 MG PO DAILY 05/14/19 Atenolol (ATENOLOL) 50 Mg Tablet, 50 MG PO DAILY 05/09/17 Medications in the ED Pantoprazole Sodium 40 mg ONCE STAT IV Last administered on 05/20/20at 15:58; Admin Dose 40 MG; Start 05/20/20 at 15:30; Stop 05/20/20 at 15:38; Status DC Ondansetron HCl 4 mg ONCE STAT IV Last administered on 05/20/20at 15:58; Admin Dose 4 MG; Start 05/20/20 at 15:30; Stop 05/20/20 at 15:38; Status DC Sodium Chloride 1,000 ml @ 0 mls/hr Q0M STAT IV Last administered on 05/20/20at 15:58; Admin Dose 999 MLS/HR; Start 05/20/20 at 15:30; Stop 05/20/20 at 15:36; Status DC Diatrizoate Meglum/ Diatrizoate Sod 30 ml STK-MED ONCE PO ; Start 05/20/20 at 15:55; Stop 05/20/20 at 15:48; Status DC PER AU MD May 20, 2020 17:26
[2020-05-20 17:35] LABS: BACTERIA,URINE FEW /HPF; EPITHELIAL CELLS,URINE RARE /LPF
--- NOTE | 2020-05-20 17:38 | Diagnostic Imaging Report ---
CT Abdomen and Pelvis without contrast INDICATION: ^nausea, constipation, abd discomfort ^20200520 ^1708 TECHNIQUE: Thin collimation axial images obtained from the diaphragm to the level of the pubic symphysis without nonionic intravenous contrast. Oral contrast was administered. Dose reduction techniques used: Automated exposure control, adjustment of the mAs and/or kVp according to patient size, standardized low-dose protocol, and/or iterative reconstruction technique. RADIATION DOSE: Total DLP: 636.91 mGy*cm Estimated effective dose: (DLP x 0.015 x size factor) mSv CTDIvol has been reviewed. It is below the limits set by the Radiation Protocol Committee (RPC). COMPARISON: CT abdomen/pelvis 05/12/2020. ABDOMEN FINDINGS: Lung Bases: Stable eventration right diaphragm. Chronic subsegmental atelectasis of the overlying lung. There is mild reticulation of the lung bases, right lung more severe than the left, suggestive of fibrosis. Stable bilateral lower lobe cylindrical bronchiectasis. The visualized portion of the mediastinum is normal in size with aortic and mitral valve calcifications and heavy coronary artery calcifications. Liver: Normal in attenuation without mass. Gallbladder: Absent. No ductal dilatation. Pancreas: Diffuse fatty atrophy without mass or ductal dilatation. Spleen: Normal size without mass. Adrenal Glands: No evidence for mass. Kidneys: Right: No renal calculus. Multiple cysts, the largest measuring 3.6 cm. Solid mildly hyperattenuating lesion in the lower pole measures 7 mm and is stable. No calculus or hydronephrosis Left: 7 mm calculus in the interpolar region and lower pole are stable. No cortical mass or hydronephrosis. Lymph Nodes: No lymphadenopathy. Aorta: Normal in diameter with scattered calcifications PELVIS FINDINGS: Bowel: Stomach: Normal. Small Bowel: Enteric contrast extends into the mid small bowel. Multiple diverticula of the second and third portion of the duodenum. Small bowel is normal in diameter with normal wall thickness. Large Bowel: Moderate burden of semisolid stool throughout. No evidence of inspissated stool or large stool ball in the rectum. No focal mural thickening or pericolonic inflammation. Appendix: Not visualized. Bladder: Well-distended. Mild circumferential mural thickening is stable. Ureters: No ureteral dilatation or calculus. Prostate: Radiation seeds redemonstrated. Seminal vesicles appear normal. Bones: Stable degenerative changes of the spine with multiple Schmorl's nodes. Mild levoscoliosis of the lumbar spine. No destructive lesions. Healed fracture deformities of multiple right and left ribs. Soft tissues: Stable small fat-containing umbilical hernia. IMPRESSION: 1. Moderate burden of semisolid stool throughout the large bowel. No evidence of bowel obstruction or inflammation. 2. Hyperattenuating cortical lesion in the lower pole of the right kidney remains concerning for RCC. 3. Stable left intrarenal calculi. No operative uropathy. 4. Mild bladder wall thickening, possibly the result of outlet obstruction from prostate hypertrophy. Signed by: Dr. Ericka Flores MD on 05/20/2020 5:34 PM
--- OUTSIDE RECORDS SUMMARY | 2020-05-20 18:13 | XMS REPORT | Continuity of Care Document ---
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 Active Problem 04/24/2020 Keegan Ingram Long-term use of high-risk medication Active Problem Keegan Melgarer Vitamin D deficiency Active Problem 04/24/2020 Keegan Ingram Nausea Active Problem 04/24/2020 Keegan Ingram Abdominal pain Active Problem 04/24/2020 Keegan Ingram Shoulder pain, right Active Problem 04/24/2020 Keegan Ingram Neck mass Active Problem 04/24/2020 Keegan Ingram Dizziness Active Problem 04/24/2020 Keegan Ingram 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 Active Prob divina 01/25/2018 Philippe Gibson Bilateral lower extremity edema Active Problem Philippe Gibson Venous insufficiency Active Diagnosis 03/07/2017 Philippe Gibson Essential hypertension Active Problem 01/25/2018 Philippe Gibson Obesity (BMI 30.0-34.9) Active Problem 01/25/2018 Philippe Gibson Osteoarthritis, unspecified osteoarthrit is type, unspecified site Active Prob divina 01/25/2018 Philippe Gibson Family history of abdominal aortic aneurysm (AAA) Active Problem 01/25/2018 Philippe Gibson Former smoker Active Problem 01/25/2018 Philippe Gibson Dyspnea, unspecified type Acti ve Problem Philippe Gibson Preoperative cardiovascular examination Active Problem 01/25/2018 Philippe Gibson Status post ablation of incompetent vein using laser Active Problem 01/25/2018 Philippe Gibson Fatigue Active Diagnosis 12/19/2017 Keegan Ingram Encounter for screening for other viral diseases Active Diagnosis 09/02/2019 Keegan Ingram half-way (current) use of opiate analgesic Active Diagnosis 09/02/2019 Keegan Ingram Encounter for screening for other bacterial diseases Active Diagnosis 09/02/2019 Keegan Ingram Right shoulder pain Active Diagnosis 09/02/2019 Keegan Ingram Screening for tuberculosis Act jenny Diagnosis 1 11/03/2018 Keegan Ingram Chronic pain Active Problem 04/24/2020 Keegan Ingram Immunocompromised state Active Problem 04/24/2020 Keegan Ingram Medications Medication Details Route Status Patient Instructions Ordering Provider Order Date Source Medrol Dose Davis as directed Orally Active 4mg Orally once a day [place] 04/22/2020 Keegan Ingram Tylenol/Codeine #3 1 tablet as needed Orally Active 300-30 MG Orally every 6 hrs [facility] 04/14/2020 Keegan Ingram Chlordiazepoxide HCl 1 capsule Orally Active 10 MG Orally Twice a day [facility] 04/14/2020 Keegan Ingram Tramadol HCl 1 tablet as needed Orally Active 50 mg Orally twice a day (bid) [place] 08/20/2019 Keegan Ingram Medrol Dose Davis as directed Orally Active 4mg Orally once a day [facility] 12/01/2018 Keegan Ingram Chlordiazepoxide HCl 1 capsule Orally Active 10 MG Orally Twice a day [place] 09/09/2018 Keegan Ingram Chlordiazepoxide HCl 1 capsule Orally Active 25 MG Orally tid for nausea [facility] 08/12/2018 Keegan Ingram PredniSONE 1-2 tabs prn for ar thritis flare up Orally Active 5 MG Orally Once a day [facility] 08/05/2018 Keegan Ingram Zofran 1 tablet Orally Active 8 MG Orally Twice a day [facility] 08/05/2018 Keegan Ingram Tylenol/Codeine #3 1 tablet as needed Orally Active 300-30 MG Orally qid [place] 06/10/2018 Keegan Ingram Meclizine HCl 1 tablet as need ed Orally Active 25 MG Orally Once a day [place] 06/10/2018 Keegan Ingram Vitamin D (Ergocalciferol) 1 c apsule Orally Active 76950 UNIT Orally once a week [place] 12/17/2017 Keegan Ingram Simponi Aria as directed Intravenous Active 50 MG/4ML Intravenous [place] 09/02/2017 Keegan Ingram PredniSONE 1-2 tabs PRN Orally Active 5 MG Orally Once a day [place] 08/20/2017 Keegan Ingram PredniSONE 1-2 tabs PRN Orally Active 5 MG Orally Once a day 08/20/2017 Keegan Ingram Tylenol/Codeine #3 1 tablet as needed Orally Active 300-30 MG Orally qd prn 12/28/2016 Keegan Ingram Gabapentin 1 tablet Orally Active 300 MG Orally three antolin es a day [place] Keegan Ingram Nexium TAKE ONE CAPSULE BY SANTANA EVERY DAY NA Active 40 MG prn [place] Keegan Ingram Atenolol 1 tablet Orally Active 50MG Orally Once a day [place] Michael Ingram Atenolol 1 tablet Orally Active 50 MG Orally Once a day Paige Gibson Gabapentin 1 tablet Orally Active 600 MG Orally Three antolin es a day Paige Gibson Pramipexole Dihydrochloride 1 tablet before bedtime Orally Active 0.25 MG Orally Once a day Usman Gibson Triamterene-HCTZ 1 tablet in t morning Orally Active 75-50 MG Orally Once a day Paige Gibson Omeprazole 1 capsule Orally Active 40 MG Orally Once a day Paige Gibson Azelastine HCl 1 puff in each nostril Nasally Active 0.1 % Nasally Twice a day Paige Gibson Asmanex 14 Metered Doses 1 puf f in the evening Inhalation Active 220 MCG/INH Inhalation Once a day Paige Gibson Hydrocodone-Acetaminophen 1 ta blet as needed Orally Active 5-325 MG Orally every 6 hrs Paige Gibson Stiolto Respimat 2 puffs Inhalation Active 2.5-2.5 MCG/ACT Inhalation Once a day Paige Gibson Atenolol 1 tablet Orally Active 50 MG Orally Once a day Paige Gibson Azelastine HCl 1 puff in each nostril Nasally Active 0.1 % Nasally Twice a day Paige Gibson Hydrocodone-Acetaminophen 1 ta blet as needed Orally Active 5-325 MG Orally every 6 hrs Paige Gibson Omeprazole 1 capsule Orally Active 40 MG Orally Once a day Paige Gibson Triamterene-HCTZ 1 tablet in t he morning Orally Active 75-50 MG Orally Once a day Paige Gibson Gabapentin 1 tablet Orally Active 600 MG Orally Three antolin es a day Paige Gibson Asmanex 14 Metered Doses 1 puf f in the evening Inhalation Active 220 MCG/INH Inhalation Once a day Paige Gibson Pramipexole Dihydrochloride 1 tablet before bedtime Orally Active 0.25 MG Orally Once a day Usman Gibson Stiolto Respimat 2 puffs Inhalation Active 2.5-2.5 MCG/ACT Inhalation Once a day Paige Gibson Gabapentin 1 tablet Orally Active 300 MG Orally Once a da y [place] Michael Ingram Vitamin D 1 tablet Orally Active 1000 UNIT Orally Once a day [place] Keegan Ingram Allergies, Adverse Reactions, Alerts Substance Category Reaction Severity Reaction type Status Date Reported Comments Source N.K.D.A. Adverse Reaction Info Not Available Adverse Reaction Active 02/28/2017 Philippe Gibson Remicade Adverse Reaction Info Not Available Adverse Reaction Active 04/14/2020 Keegan Ingram Latex Adverse Reaction Info Not Available Adverse Reaction Active 04/14/2020 Keegan Ingram Celebrex Adverse Reaction GI upset Adverse Reaction Active 04/14/2020 Keegan Ingram Arthrotec Adverse Reaction Info Not Available Adverse Reaction Active 04/14/2020 Keegan Ingram Mirapex Adverse Reaction nausea/emesis Adverse Reaction Active 04/14/2020 Keegan Ingram Immunizations No Data Provided for [...] Vital Sign Value Date Comments Source Weight 219.9 04/14/2020 Keegan Ingram Height 69 0 04/14/2020 Keegan Ingram Temperature Oral (F) 97.9 F 04/14/2020 Keegan Ingram Heart Rate 89 04/14/2020 Keegan Ingram Diastolic (mm Hg) 93 04/14/2020 Keegan Ingram Systolic (mm Hg) 140 04/14/2020 Keegan Ingram Weight 220.0 08/20/2019 Keegan Ingram Height 70 1 10/20/2018 Keegan Ingram Temperature Oral (F) 97.7 F 08/20/2019 Keegan Ingram Heart Rate 61 08/20/2019 Keegan Ingram Diastolic (mm Hg) 81 08/20/2019 Keegan Ingram Systolic (mm Hg) 140 08/20/2019 Keegan Ingram Weight 221 06/16/2019 Keegan Ingram Height 70 0 06/16/2019 Keegan Ingram Temperature Oral (F) 98.9 F 06/16/2019 Keegan Ingram Heart Rate 88 06/16/2019 Keegan Ingram Diastolic (mm Hg) 90 06/16/2019 Keegan Ingram Systolic (mm Hg) 124 06/16/2019 Keegan Ingram Weight 220.0 01/05/2019 Keegan Ingram Height 70 0 01/05/2019 Keegan Ingram Temperature Oral (F) 96.8 F 01/05/2019 Keegan Ingram Heart Rate 68 01/05/2019 Keegan Ingram Diastolic (mm Hg) 80 01/05/2019 Keegan Ingram Systolic (mm Hg) 140 01/05/2019 Keegan Ingram Weight 225.4 11/07/2018 Keegan Ingram Height 69 0 11/07/2018 Keegan Ingram Temperature Oral (F) 96.6 F 11/07/2018 Keegan Ingram Heart Rate 64 11/07/2018 Keegan Ingram Diastolic (mm Hg) 72 11/07/2018 Keegan Ingram Systolic (mm Hg) 148 11/07/2018 Keegan Ingram Weight 221.6 11/04/2018 Keegan Ingram Height 69 0 11/04/2018 Keegan Ingram Temperature Oral (F) 98.0 F 11/04/2018 Keegan Ingram Heart Rate 76 11/04/2018 Keegan Ingram Diastolic (mm Hg) 66 11/04/2018 Keegan Ingram Systolic (mm Hg) 104 11/04/2018 Keegan Ingram Weight 226 09/09/2018 Keegan Ingram Height 69 1 11/10/2017 Keegan Ingram Temperature Oral (F) 98.8 F 09/09/2018 Keegan Ingram Heart Rate 74 09/09/2018 Keegan Ingram Diastolic (mm Hg) 70 09/09/2018 Keegan Ingram Systolic (mm Hg) 118 09/09/2018 Keegan Ingram Weight 221.1 08/12/2018 Keegan Ingram Height 72 1 10/12/2017 Keegan Ingram Temperature Oral (F) 97.2 F 08/12/2018 Keegan Ingram Heart Rate 76 08/12/2018 Keegan Ingram Diastolic (mm Hg) 80 08/12/2018 Keegan Ingram Systolic (mm Hg) 112 08/12/2018 Keegan Ingram Weight 222.2 08/05/2018 Keegan Ingram Height 72 1 10/05/2017 Keegan Ingram Temperature Oral (F) 98.5 F 08/05/2018 Keegan Ingram Heart Rate 76 08/05/2018 Keegan Ingram Diastolic (mm Hg) 78 08/05/2018 Keegan Ingram Systolic (mm Hg) 122 08/05/2018 Keegan Ingram Weight 227.9 06/10/2018 Keegan Ingram Height 72 0 06/10/2018 Keegan Ingram Temperature Oral (F) 97.0 F 06/10/2018 Keegan Ingram Heart Rate 74 06/10/2018 Keegan Ingram Diastolic (mm Hg) 70 06/10/2018 Keegan Ingram Systolic (mm Hg) 128 06/10/2018 Keegan Ingram Weight 231.6 02/13/2018 Keegan Ingram Height 72 0 02/13/2018 Keegan Ingram Temperature Oral (F) 97.3 F 02/13/2018 Keegan Ingram Heart Rate 76 02/13/2018 Keegan Ingram Diastolic (mm Hg) 60 02/13/2018 Keegan Ingram Systolic (mm Hg) 102 02/13/2018 Keegan Ingram Weight 235.8 12/16/2017 Keegan Ingram Height 72 0 12/16/2017 Keegan Ingram Temperature Oral (F) 98.2 F 12/16/2017 Keegan Ingram Heart Rate 76 12/16/2017 Keegan Ingram Diastolic (mm Hg) 70 12/16/2017 Keegan Ingram Systolic (mm Hg) 122 12/16/2017 Keegan Ingram Weight 235.7 10/21/2017 Keegan Ingram Height 72 0 10/21/2017 Keegan Ingram Temperature Oral (F) 99.0 F 10/21/2017 Keegan Ingram Heart Rate 74 10/21/2017 Keegan Ingram Diastolic (mm Hg) 58 10/21/2017 Keegan Ingram Systolic (mm Hg) 110 10/21/2017 Keegan Ingram Weight 235 02/28/2017 Mohamed O Jeroudi Height 72 0 02/28/2017 Mohamed O Jeroudi Temperature Oral (F) 97.3 F 02/28/2017 Mohamed O Jeroudi Heart Rate 80 02/28/2017 Mohamed O Jeroudi Diastolic (mm Hg) 70 02/28/2017 Mohamed O Jeroudi Systolic (mm Hg) 130 02/28/2017 Mohamed O Jeroudi Weight 235 01/31/2017 Mohamed O Jeroudi Height 72 0 01/31/2017 Mohamed O Jeroudi Temperature Oral (F) 97.6 F 01/31/2017 Mohamed O Jeroudi Heart Rate 80 01/31/2017 Mohamed O Jeroudi Diastolic (mm Hg) 76 01/31/2017 Mohamed O Jeroudi Systolic (mm Hg) 132 01/31/2017 Mohamed O Jeroudi Weight 234 01/16/2017 Mohamed O Jeroudi Height 72 0 01/16/2017 Mohamed O Jeroudi Temperature Oral (F) [...]
--- OUTSIDE RECORDS SUMMARY | 2020-05-20 18:13 | XMS REPORT ---
Author Author NOEMY Ingram Organization [employer] Address Unknown Phone Unavailable Care Team Providers Care Boom Worker Name Role Phone Gregory Ingram CP Unavailable Allergies No Known Allergies Problems Problem Type Condition Code Onset Dates Condition Statu s Problem Knee pain, right M25.561 Active Problem Vitamin D deficiency E55.9 Active Problem Long-term use of high-risk medication Z79.899 Active Problem Ankylosing spondylitis of multiple sites in spine M45. 0 Active Problem Chronic pain G89.29 Active Problem Shoulder pain, right M25.511 Active Problem Immunocompromised state D89.9 Acti ve Problem Neck mass R22.1 Active Problem Dizziness R42 Active Problem Nausea R11.0 Active Problem Abdominal pain R10.9 Active Medications Medication Code System Code Instructions Start Date End Date Status Dosage Medrol Dose Davis [facility] [id number] 4mg Orally once a day April 22, 2020 April 28, 2020 Active as directed Results No Known Results Summary Purpose [employer] Submission
--- OUTSIDE RECORDS SUMMARY | 2020-05-20 18:14 | XMS REPORT | Continuity of Care Document ---
Author Author [facility] t Organization [facility] Address [address] [place] [id number] Phone Unavailable Care Team Providers Care Grey Roll Man Name Role Phone DAVID PORTER PCP Gerson AU Attphys Unavailable ARZOLA, NIECY Attphys Unavailable ARZOLA, SOUHEIL Attphys Unavailable JACOBSEN, AG Attphys Unavailable SHAW, Gerson OLIVA Attphys Unavailable GELELMIRA SANCHEZ Attphys Unavailable TRACEE, PENI Attphys Unavailable Gigi PRAKASH Attphys Unavailable JACOBSEN, AG Admphys Unavailable SHAW, A HAZEL Admphys Unavailable TRACEE, PENI Admphys Unavailable ARZOLA, SOUHEIL Admphys Unavailable Payers Payer Name Policy Type Policy Number Effective Date Expiration Date [facility] [id number] 2018 00:00:00 [facility] Problems Condition Name Condition Details Condition Category Status Onset Date Resolution Date Last Treatment Date Treating Clinician Comments Source Closed fracture of one rib Closed fracture of one rib Problem Active 2018-02-22 00:00:00 [facility] (LUF/IZAIAH/SA) Arthralgia of bilateral temporomandibular joint Arthra [...] [facility] Dizziness Dizziness Problem Active [facility] Foreign body in esophagus Esophageal foreign body Problem Active [facility] Fever Fever Problem Active [facility] Weakness Generalized weakness Problem Active [facility] Pill esophagitis Pill esophagitis Problem Active [facility] Pneumonia Pneumonia Problem Active [facility] Knee pain, right Knee pain, right Active Problem 04/24/2020 Keegan Ingram Problem Active 2020-04-24 02:45:06 [facility] Ankylosing spondylitis of multiple sites in spine Ankylosing spondylitis of multiple sites in spine Active Problem 04/24/2020 Keegan Ingram Problem Active 2020-04-24 02:45:06 [facility] Long-term use of high-risk medication Long-term use of high-risk medication Active Problem 04/24/2020 Keegan Ingram Problem Active 2020-04-24 02:45:06 John Cárdenas Vitamin D deficiency Kamila min D deficiency Active Problem 04/24/2020 Keegan Ingram Problem Active 2020-04-24 02:45:06 John Cárdenas Nausea Naus ea Active Problem 04/24/2020 Keegan Inrgam Problem Active 2020-04-24 02:45:06 John Cárdenas Abdominal pain Abdo tammy pain Active Problem 04/24/2020 Keegan Ingram Problem Active 2020-04-24 02:45:06 John Cárdenas Shoulder pain, right Shou lder pain, right Active Problem 04/24/2020 Keegan Ingram Problem Active 2020-04-24 02:45:06 John Cárdenas Neck mass Neck mass Active Problem 04/24/2020 Keegan Ingram Problem Active 2020-04-24 02:45:06 John Cárdenas Dizziness Dizz iness Active Problem 04/24/2020 Keegan Ingram Problem Active 2020-04-24 02:45:06 John Cárdenas 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 Obesity (BMI 30.0-34.9) Obes ity (BMI 30.0-34.9) Active Problem 01/25/2018 Mohamed Radha Lroudi Problem Active 16-01-28 02:45:48 [facility] Osteoarthritis, unspecified osteoarthritis type, unspe cified site Osteoarthritis, unspecified osteoarthritis type, unspecified site Active Problem 01/25/2018 Mohdixon Garcia Paige Problem Active 16-01-28 02:45:48 [facility] Family history of abdominal aortic aneurysm (AAA) Family history of abdominal aortic aneurysm (AAA) Active Problem 01/25/2018 Philippe Gibson Problem Active 2018-01-25 02:45:48 Armando Cárdenas Former smoker Form er smoker Active Problem 01/25/2018 Philippe Gibson Problem Active 2018-01-25 02:45:48 [facility]vi Dyspnea, unspecified type Dysp kobi, unspecified type Active Problem 01/25/2018 Philippe Gibson Problem Active 20 16-01-28 02:45:48 [facility] Preoperative cardiovascular examination Preoperative cardiovascular examination Active Problem 01/25/2018 Philippe Gibson Problem Active 2018-01-25 02:45:48 [facility] 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 Active Problem 01/25/2018 Philippe Gibson Problem Active 2018-01-25 02:45:48 [facility] Fatigue Fati shane Active Diagnosis 12/19/2017 Keegan Ingram Diagnosis Active 2017-12-19 02:46:26 [facility] Encounter for screening for other viral diseases Encounter for screening for other viral diseases Active Diagnosis 09/02/2019 Keegan Ingram Diagnosis Active 2019-09-02 03:46:32 [facility] 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[facility]iary (current) use of opiate analgesic Active Diagnosis 09/02/2019 Keegan Ingram Diagnosis Active 2019-09-02 03:46:32 [facility] Encounter for screening for other bacterial diseases Encounter for screening for other bacterial diseases Active Diagnosis 09/02/2019 Keegan Ingram Diagnosis Active 2019-09-02 03:46:32 [facility] Screening for tuberculosis Scr eening for tuberculosis Active Diagnosis 09/02/2019 Keegan Ingram Diagnosis Active 2019-09-02 03:46:32 [facility] Chronic pain Medical Csr juwan pain Active Problem 04/24/2020 Keegan Ingram Problem Active 2020-04-24 02:45:06 [facility] Immunocompromised state Immu nocompromised state Active Problem 04/24/2020 Keegan Ingram Problem Active 2020-04-24 02 :45:06 [facility] Allergies, Adverse Reactions, Alerts Allergy Name Allergy Type Status Severity Reaction(s) Onset Date Inacti ve Date Treating Clinician Comments Source Remicade Remicade Active Info Not Available 2020-04-14 00:00:00 John Cárdenas Mirapex Mirapex Active nausea/emesis 2020-04-14 00:00:00 [facility] latex DA Active U 2019-01-21 00:00:00 [facility] Latex Allergy to Substance Active RASH 2017-06-28 00:00:00 [facility] Cora Shepherd Active Info Not Available 2017-02-28 00:00:00 [facility] latex DA Active U 2013-02-17 00:00:00 [facility] Latex Gloves Adverse Reaction Active Info Not Available [facility] Social History Smoking Status Start Date Stop Date Source Never smoker [facility] (LUF/IZAIAH/SA) Medications Ordered Medication Name Filled Medication Name Start Date Stop Da te Current Medication? Ordering Clinician Indication Dosage Frequency Signature (SIG) Comments Components Source Medrol Dose Davis 2020-04-22 00:00:00 Yes Gregory Ingram as directed [facility] Nexium 2020-04-19 02:46:07 Yes Milad Rodriguez TAKE ONE CAPSULE BY MOUTH EVERY DAY [facility] Atenolol 2020-04-19 02:46:07 Yes Milad Rodriguez [address] [facility] Gabapentin 2020-04-19 02:46:07 Yes Milad Rodriguez [address] [facility] Vitamin D 2020-04-19 02:46:07 Yes Milad Rodriguez [address] [facility] Tylenol/Codeine #3 2020-04-14 00:00:00 Yes Milad Rodriguez [address] [facility] Chlordiazepoxide HCl 2020-04-14 00:00:00 Yes Milad Rodriguez [address] [facility] Tramadol HCl 2019-08-20 00:00:00 Yes Maria E Martines [address] [facility] Medrol Dose Davis 2018-12-01 00:00:00 Yes Evaristo Olguin as directed [facility] Chlordiazepoxide HCl 2018-09-09 00:00:00 Yes Maria E Martines [address] [facility] Chlordiazepoxide HCl 2018-08-12 00:00:00 Yes Evaristo Rolonf [address] [facility] PredniSONE 2018-08-05 00:00:00 Yes Evaristo Olguin 1-2 tabs prn for arthritis flare up [facility] Zofran 2018-08-05 00:00:00 Yes Milad Rodriguez 1 tab let [facility] Nasacort Nasacort 2018-07-31 00:00:00 Yes Duane Mcdonnell 2 puffs in each nostril [facility] Ofloxacin Ofloxacin 2018-07-31 00:00:00 2018-08-06 00:00:00 No Jayla Mcdonnell 4 drops into affected ear [facility] Gabapentin 2018-06-17 02:46:27 Yes Bernalizabethzainaa Clau [address] [facility] Tylenol/Codeine #3 2018-06-10 00:00:00 Yes Maria E Martines [address] [facility] Meclizine HCl 2018-06-10 00:00:00 Yes Milad Rodriguez [address] [facility] Atenolol 2018-01-25 02:45:48 Yes Mohamed Jeroudi [address] [facility] Azelastine HCl 2018-01-25 02:45:48 Yes Mohamed Jeroudi 1 puff in each nostril [facility] Hydrocodone-Acetaminophen 2018-01-25 02:45:48 Yes Mohame d Jeroudi [address] [facility] Omeprazole 2018-01-25 02:45:48 Yes Mohamed Jeroudi [address] [facility] Triamterene-HCTZ 2018-01-25 02:45:48 Yes Mohamed Jeroudi 1 tablet in the morning [facility] Gabapentin 2018-01-25 02:45:48 Yes Mohamed Jeroudi [address] [facility] Asmanex 14 Metered Doses 2018-01-25 02:45:48 Yes Mohamed Jeroudi 1 puff in the evening [facility] Pramipexole Dihydrochloride 2018-01-25 02:45:48 Yes Moha med Jeroudi [address] [facility] Stiolto Respimat 2018-01-25 02:45:48 Yes Mohamed Jeroudi [address] [facility] Vitamin D (Ergocalciferol) 2017-12-17 00:00:00 Yes Gretta Ingram [address] [facility] Ciprodex Ciprodex 2017-12-11 00:00:00 Yes Duane Mcdonnell not defined [facility] Simponi Aria 2017-09-02 00:00:00 Yes Milad Rodriguez as directed [facility] PredniSONE 2017-08-20 00:00:00 Yes Gregory Ingram 1-[address] [facility] PredniSONE 2017-08-20 00:00:00 Yes Evaristo Rolonf 1-[address] [facility] Atenolol 2017-07-23 02:45:17 Yes Mohamed Jeroudi [address] [facility] Gabapentin 2017-07-23 02:45:17 Yes Mohamed Jeroudi [address] [facility] Pramipexole Dihydrochloride 2017-07-23 02:45:17 Yes Moha med Jeroudi [address] [facility] Triamterene-HCTZ 2017-07-23 02:45:17 Yes Mohamed Jeroudi 1 tablet in the morning [facility] Omeprazole 2017-07-23 02:45:17 Yes Mohamed Jeroudi [address] [facility] Azelastine HCl 2017-07-23 02:45:17 Yes Chasidyamed Jeroudi 1 puff in each nostril [facility] Asmanex 14 Metered Doses 2017-07-23 02:45:17 Yes Mohamed Jeroudi 1 puff in the evening [facility] Hydrocodone-Acetaminophen 2017-07-23 02:45:17 Yes Chasidyame d Jeroudi [address] [facility] Stiolto Respimat 2017-07-23 02:45:17 Yes Mohamed Jeroudi [address] [facility] Ranitidine HCl Ranitidine HCl 2017-07-16 00:00:00 Yes Duane thorne 1 tablet [facility] Tylenol/Codeine #3 2016-12-28 00:00:00 Yes Evaristo Rolon f [address] [facility] Acetaminophen 300 MG / Codeine Phosphate 60 MG Oral Ta blet Acetaminophen 300 MG / Codeine Phosphate 60 MG Oral Tablet Yes 1tab QID [facility] (LUF/IZAIAH/SA) Atenolol 50 MG Oral Tablet Atenolol 50 MG Oral Tablet Yes 50mg [facility] (LUF/IZAIAH/SA) gabapentin 600 MG Oral Tablet gabapentin 600 MG Oral Tablet Yes 600mg TID [facility] (LUF/IZAIAH/SA) Gabapentin Gabapentin Yes Duane Mcdonnell not defin ed [facility] Triamterene Triamterene Yes Duane Mcdonnell not def ined [facility] Atenolol Atenolol Yes Duane Mcdonnell not defined [facility] Acetamin Acetamin Yes Duane Mcdonnell not defined [facility] Atenolol 50 Mg Tablet Atenolol 50 Mg Tablet Yes 50 Daily [facility] Azithromycin (Z-Davis) 250 Mg Tablet Azithromycin (Z-Davis) 250 Mg Tablet Yes 250 Use As Directed [facility] Pantoprazole Sodium (Protonix) 40 Mg Tablet. Pantopr azole Sodium (Protonix) 40 Mg Tablet. Yes 40 Daily [facility] Gabapentin 300 Mg Capsule, 600 Mg Oral Gabapentin 300 Mg Capsule , 600 Mg Oral 2019-05-15 00:00:00 No 600 Three Times A Day [facility] Ropinirole Hcl 0.5 Mg Tablet, 0.5 Mg Oral Ropinirole H cl 0.5 Mg Tablet, 0.5 Mg Oral 2019-05-15 00:00:00 No .5 Bedtime [facility] Meclizine Hcl 12.5 Mg Tablet, 25 Mg Oral Meclizine Hcl 12.5 Mg Tablet, 25 Mg Oral 2019-03-11 00:00:00 No 25 Daily [facility] Pramipexole Di-Hcl (Pramipexole Dihydrochloride) 0.25 Mg Tablet, 0.5 Tab Oral Pramipexole Di-Hcl (Pramipexole Dihydrochloride) 0.25 Mg Tablet, 0.5 Tab Oral 2019-03-11 00:00:00 No .5 Twice A Day [facility] Triamterene/Hctz 75MG/50MG , Oral Triamterene/Hctz 75MG/50MG , Oral 2019-03-11 00:00:00 No Daily [facility] Vital Signs Vital Name Observation Time Observation Value Comments Source Weight 2020-04-14 20:00:00 [facility] Height 2020-04-14 20:00:00 [facility] Temperature Oral (F) 2020-04-14 20:00:[address] [facility] Heart Rate 2020-04-14 20:00:00 [facility] Diastolic (mm Hg) 2020-04-14 20:00:00 [facility] Systolic (mm Hg) 2020-04-14 20:00:00 [facility] [place] Weight 2019-08-20 20:30:00 [facility] Height 2019-08-20 20:30:00 [facility] Temperature Oral (F) 2019-08-20 20:30:00 97.7 F [facility] Heart Rate 2019-08-20 20:30:00 [facility] Diastolic (mm Hg) 2019-08-20 20:30:00 [facility] Systolic (mm Hg) 2019-08-20 20:30:00 [facility]ando [facility] Weight 2019-06-16 18:45:00 [facility] Height 2019-06-16 18:45:00 [facility] Temperature Oral (F) 2019-06-16 18:45:00 98.9 F [facility] Heart Rate 2019-06-16 18:45:00 [facility] Diastolic (mm Hg) 2019-06-16 18:45:00 [facility] [place] Systolic (mm Hg) 2019-06-16 18:45:00 [facility]ando [facility] Weight 2019-01-05 16:45:00 [facility] Height 2019-01-05 16:45:00 [facility] Temperature Oral (F) 2019-01-05 16:45:00 96.8 F [facility] Heart Rate 2019-01-05 16:45:00 [facility] Diastolic (mm Hg) 2019-01-05 16:45:00 [facility] Systolic (mm Hg) 2019-01-05 16:45:00 [facility]ando [facility] Weight 2018-11-07 16:15:00 [facility] Height 2018-11-07 16:15:00 [facility] Temperature Oral (F) 2018-11-07 16:15:00 96.6 F [facility] [place] Heart Rate 2018-11-07 16:15:00 [facility] Diastolic (mm Hg) 2018-11-07 16:15:00 [facility] [place] Systolic (mm Hg) 2018-11-07 16:15:00 Armando rial [facility] Weight 2018-11-04 19:15:00 [facility] Height 2018-11-04 19:15:00 [facility] Temperature Oral (F) 2018-11-04 19:15:00 98.0 F [facility] [place] Heart Rate 2018-11-04 19:15:00 [facility] Diastolic (mm Hg) 2018-11-04 19:15:00 [facility] Systolic (mm Hg) 2018-11-04 19:15:00 [facility] [place] Weight 2018-09-09 19:00:00 [facility] Height 2018-09-09 19:00:00 [facility] [place] Temperature Oral (F) 2018-09-09 19:00:00 98.8 F [facility] Heart Rate 2018-09-09 19:00:00 [facility] [place] Diastolic (mm Hg) 2018-09-09 19:00:00 [facility] [place] Systolic (mm Hg) 2018-09-09 19:00:00 [facility]ando [facility] Weight 2018-08-12 21:00:00 [facility] Height 2018-08-12 21:00:00 [facility] Temperature Oral (F) 2018-08-12 21:00:00 97.2 F [facility] Heart Rate 2018-08-12 21:00:00 [facility] Diastolic (mm Hg) 2018-08-12 21:00:00 [facility] [place] Systolic (mm Hg) 2018-08-12 21:00:00 [facility]ando [facility] Weight 2018-08-05 19:00:00 [facility] Height 2018-08-05 19:00:00 [facility] Temperature Oral (F) 2018-08-05 19:00:00 98.5 F [facility] Heart Rate 2018-08-05 19:00:00 [facility] Diastolic (mm Hg) 2018-08-05 19:00:00 [facility] Systolic (mm Hg) 2018-08-05 19:00:00 [facility] [place] Weight 2018-06-10 18:30:00 [facility] [place] Height 2018-06-10 18:30:00 [facility] Temperature Oral (F) 2018-06-10 18:30:00 97.0 F [facility] [place] Heart Rate 2018-06-10 18:30:00 [facility] [place] Diastolic (mm Hg) 2018-06-10 18:30:00 [facility] [place] Systolic (mm Hg) 2018-06-10 18:30:00 [facility] [place] Body Temperature 2018-02-22 12:32:00 98.2 F [facility] (LUF/IZAIAH/SA) Respiratory Rate 2018-02-22 12:32:00 20 /min [facility] (LUF/IZAIAH/SA) O2% BldC Oximetry 2018-02-22 12:32:00 98 % [facility] (LUF/IZAIAH/SA) BP Systolic 2018-02-22 12:32:00 128 mm[Hg] [facility] (LUF/IZAIAH/SA) BP Diastolic 2018-02-22 12:32:00 71 mm[Hg] [facility] (LUF/IZAIAH/SA) Height 2018-02-22 12:32:00 71 in [facility] (LUF/IZAIAH/SA) Weight Measured 2018-02-22 12:32:00 237 lbs [facility] (LUF/IZAIAH/SA) BMI (Body Mass Index) 2018-02-22 12:32:00 33.1 [facility] (LUF/IZAIAH/SA) Weight 2018-02-13 18:15:00 [facility] Height 2018-02-13 18:15:00 [facility] Temperature Oral (F) 2018-02-13 18:15:00 97.3 F [facility] Heart Rate 2018-02-13 18:15:00 [facility] Diastolic (mm Hg) 2018-02-13 18:15:00 [facility] [place] Systolic (mm Hg) 2018-02-13 18:15:00 [facility]ando [facility] Weight 2017-12-16 20:00:00 [facility] Height 2017-12-16 20:00:00 [facility] [place] Temperature Oral (F) 2017-12-16 20:00:00 98.2 F [facility] Heart Rate 2017-12-16 20:00:00 [facility] [place] Diastolic (mm Hg) 2017-12-16 20:00:00 [facility] Systolic (mm Hg) 2017-12-16 20:00:00 Armando [facility] Weight 2017-10-21 21:30:00 [facility] Height 2017-10-21 21:30:00 [facility] Temperature Oral (F) 2017-10-21 21:30:00 99.0 F [facility] Heart Rate 2017-10-21 21:30:00 [facility] Diastolic (mm Hg) 2017-10-21 21:30:00 [facility] [place] Systolic (mm Hg) 2017-10-21 21:30:00 [facility] [place] Weight 2017-02-28 18:00:00 [facility] [place] Height 2017-02-28 18:00:00 [facility] Temperature Oral (F) 2017-02-28 18:00:00 97.3 F [facility] Heart Rate 2017-02-28 18:00:00 [facility] [place] Diastolic (mm Hg) 2017-02-28 18:00:00 [facility] Systolic (mm Hg) 2017-02-28 18:00:00 [facility] [place] Weight 2017-01-31 20:00:00 [facility] Height 2017-01-31 20:00:00 [facility] Temperature Oral (F) 2017-01-31 20:00:00 97.6 F [facility] Heart Rate 2017-01-31 20:00:00 [facility] Diastolic (mm Hg) 2017-01-31 20:00:00 [facility] [place] Systolic (mm Hg) 2017-01-31 20:00:00 [facility] [place] Weight 2017-01-16 20:30:00 [facility] [place] Height 2017-01-16 20:30:00 [facility] Temperature Oral (F) 2017-01-16 20:30:00 98.0 F [facility] Heart Rate 2017-01-16 20:30:00 [facility] Diastolic (mm Hg) 2017-01-16 20:30:00 [facility] Systolic (mm Hg) 2017-01-16 20:30:00 Armando [facility] Procedures Procedure Date / Time Performed Performing Clinician [facility] e Computed tomography of brain without radiopaque contrast 201 06-07-14 00:00:00 CINDY BURROWS [facility] Computed tomography of cervical spine without contrast 05-13 00:00:00 CINDY BURROWS [facility] REMOVE PILONIDAL CYST EXTEN 2019-03-17 00:00:00 ELMIRA HUGHES [facility] X-ray of chest, two views 2019-03-11 00:00:00 ELMIRA HUGHES CH, [facility] Encounters Start Date/Time End Date/Time Encounter Type Admission Type Att[facility] Care Department Encounter ID Source 2020-04-22 09:51:00 2020-04-22 09:51:00 Outpatient Gregory Ingram MD PA [id number] Keegan Ingram MD 2020-04-14 15:00:00 2020-04-14 15:00:00 Outpatient Gregory Ingram MD PA [id number] Keegan Ingram MD 2020-03-14 13:57:00 2020-03-14 13:57:00 Outpatient Gregory Ingram MD PA [id number] Keegan Ingram MD 2019-11-09 15:05:00 2019-11-09 15:05:00 Outpatient MD GALILEA Cazares MD [place] [id number] Keegan Ingram MD 2019-10-28 16:53:00 2019-10-28 16:53:00 Outpatient MD GALILEA Cazares MD PA [id number] Keegan Ingram MD 2019-08-20 14:53:00 2019-08-20 14:53:00 Outpatient MD GALILEA Cazares MD PA [id number] Keegan Ingram MD 2019-08-20 14:30:00 2019-08-20 14:30:00 Outpatient Gregory Ingram MD PA [id number] Keegan Ingram MD 2019-06-16 13:45:00 2019-06-16 13:45:00 Outpatient Gregory Ingram MD PA [id number] MIRACLE Ingram MD 2019-06-03 12:40:00 2019-06-03 12:40:00 Outpatient MD GALILEA Villa MD PA [id number] Keegan Ingram MD 2019-05-20 11:17:00 2019-05-20 11:17:00 Outpatient Gregory Ingram MD PA [id number] Keegan Ingram MD 2019-05-14 02:17:00 2019-05-15 18:35:00 Discharged Inpatient (obs) 1 [facility] [id number] [facility] 2019-03-30 14:59:00 2019-03-30 14:59:00 Outpatient Gregory CALERO [id number] Keegan Ingram MD 2019-03-17 07:14:00 2019-03-17 07:14:00 Registered Surgical Day Car e ELMIRA [facility] [id number] [facility] 2019-03-04 16:27:00 2019-03-04 16:27:00 Outpatient Gregory CALERO [id number] Keegan Ingram MD 2019-01-08 10:55:00 2019-01-08 10:55:00 Outpatient [facility] [id number] [facility] 2019-01-05 11:45:00 2019-01-05 11:45:00 Outpatient Gregory Ingram MD PA [id number] Keegan Ingram MD 2018-12-01 16:00:00 2018-12-01 16:00:00 Outpatient Gregory CALERO [id number] Keegan Ingram MD 2018-11-28 13:18:00 2018-11-28 13:18:00 Outpatient Gregory CALERO [id number] Keegan Ingram MD 2018-11-07 10:15:00 2018-11-07 10:15:00 Outpatient Gregory CALERO [id number] Keegan Ingram MD 2018-11-04 13:15:00 2018-11-04 13:15:00 Outpatient Gregory CALERO [id number] Keegan Ingram MD 2018-09-09 13:00:00 2018-09-09 13:00:00 Outpatient Gregory CALERO [id number] Keegan Ingram MD 2018-08-26 14:53:00 2018-08-26 14:53:00 Outpatient Gregory CALERO [id number] Keegan Ingram MD 2018-08-12 15:00:00 2018-08-12 15:00:00 Outpatient Gregory CALERO [id number] Keegan Ingram MD 2018-08-05 13:00:00 2018-08-05 13:00:00 Outpatient Gregory CALERO [id number] Keegan Ingram MD 2018-07-31 10:00:00 2018-07-31 10:00:00 Outpatient [facility] [id number] [facility] 2018-07-30 15:49:00 2018-07-30 15:49:00 Outpatient [facility] [id number] [facility] 2018-06-23 18:55:00 2018-06-23 18:55:00 [facility] [id number] [facility] 2018-06-10 14:46:00 2018-06-10 14:46:00 Outpatient Gregory Ingram MD PA [id number] Keegan Ingram MD 2018-06-10 13:30:00 2018-06-10 13:30:00 Outpatient Gregory Ingram MD PA [id number] Keegan Ingram MD 2018-02-22 12:13:00 2018-02-22 14:30:00 FX 1 RIB LT SIDE INITIAL CL OS FX 1 JOE EASLEY [facility], [address] [place] [address] , [place] [address] [facility] [id number] [facility] (LUF /IZAIAH/SA) 2018-02-13 13:15:00 2018-02-13 13:15:00 Outpatient Gregory Ingram MD PA [id number] Keegan Ingram MD 2018-02-11 15:39:00 2018-02-11 15:39:00 Outpatient Gregory Ingram MD PA [id number] Keegan Ingram MD 2017-12-17 12:56:00 2017-12-17 12:56:00 Outpatient Gregory Ingram MD PA [id number] Keegan Ingram MD 2017-12-16 15:00:00 2017-12-16 15:00:00 Outpatient Gregory Ingram MD PA [id number] Keegan Ingram MD 2017-12-11 13:20:00 2017-12-11 13:20:00 Outpatient [facility] [id number] [facility] [facility] 2017-12-04 13:00:00 2017-12-04 13:00:00 [facility]patient [facility] [id number] [facility] 2017-10-22 08:34:00 2017-10-22 08:34:00 Outpatient Gregory Ingram MD [place] [id number] Keegan Ingram MD 2017-10-21 15:30:00 2017-10-21 15:30:00 Outpatient Gregory Ingram MD [place] [id number] Keegan Ingram MD 2017-02-28 13:00:00 2017-02-28 13:00:00 Outpatient Philippe Gibson MD [place] [id number] [employer] 2017-02-12 11:00:00 2017-02-12 11:00:00 Outpatient Philippe Gibson MD PA [id number] [employer] 2017-01-31 15:00:00 2017-01-31 15:00:00 Outpatient Philippe Gibson MD PA [id number] [employer] 2017-01-16 15:30:00 2017-01-16 15:30:00 Outpatient Philippe Gibson MD [place] [id number] [employer] Results Test Description Test Time Test Comments Results Result Comments Source CT ABDOMEN/PELVIS WO 2020-05-20 17:22:00 [place] [id number] [place] [address] Patient Name: NOEMY ARGUETA MR #: [id number] : 1935 Age/Sex: 84/M Req #: [id number] Adm Physician: Ordered by: PER AU MD Report #: [id number] Location: ER Room/Bed: Procedure: [id number] CT/CT ABDOMEN/PELVIS WO Exam Date: 05/20/20 Exam Time: 1708 REPORT STATUS: Signed CT Abdomen and Pelvis without contrast INDICATION: nausea, constipation, abd discomfort 20200520 TECHNIQUE: Thin collimation axial images obtained from the diaphragm to the level of the pubic symphysis without nonionic intravenous contrast. Oral contrast was administered. Dose reduction techniques used: Automated exposure control, adjustment of the mAs and/or kVp according to patient size, standardized low-dose protocol, and/or iterative reconstruction technique. RADIATION DOSE: Total DLP: 636.91 mGy*cm Estimated effective dose: (DLP x 0.015 x size factor) mSv CTDIvol has been reviewed. It is below the limits set by the Radiation Protocol Committee (RPC). COMPARISON: CT abdomen/pelvis 05/12/2020. ABDOMEN FINDINGS: Lung Bases: Stable eventration right diaphragm. Chronic subsegmental atelectasis of the overlying lung. There is mild reticulation of the lung bases, right lung more severe than the left, suggestive of fibrosis. Stable bilateral lower lobe cylindrical bronchiectasis. The visualized portion of the mediastinum is normal in size with aortic and mitral valve calcifications and heavy coronary artery calcifications. Liver: Normal in attenuation without mass. Gallbladder: Absent. No ductal dilatation. Pancreas: Diffuse fatty atrophy without mass or ductal dilatation. Spleen: Normal size without mass. Adrenal Glands: No evidence for mass. Kidneys: Right: No renal calculus. Multiple cysts, the largest measuring 3.6 cm. Solid mildly hyperattenuating lesion in the lower pole measures 7 mm and is stable. No calculus or hydronep hrosis Left: 7 mm calculus in the interpolar region and lower pole are stable. No cortical mass or hydronephrosis. Lymph Nodes: No lymphadenopathy. Aorta: Normal in diameter with scattered calcifications PELVIS FINDINGS: Bowel: Stomach: Normal. Small Bowel: Enteric contrast extends into the mid small bowel. Multiple diverticula of the second and third portion of the duodenum. Small bowel is normal in diameter with normal wall thickness. Large Bowel: Moderate burden of semisolid stool throughout. No evidence of inspissated stool or large stool ball in the rectum. No focal mural thickening or pericolonic inflammation. Appendix: Not visualized. Bladder: Well-distended. Mild circumferential mural thickening is stable. Ureters: No ureteral dilatation or calculus. Prostate: Radiation seeds redemonstrated. Seminal vesicles appear normal. Bones: Stable degenerative changes of the spine with multiple Schmorl's nodes. Mild levoscoliosis of the lumbar spine. No destructive lesions. Healed fracture deformities of multiple right and left ribs. Soft tissues: Stable small fat-containing umbilical hernia. IMPRESSION: 1. Moderate burden of semisolid stool throughout the large bowel. No evidence of bowel obstruction or inflammation. 2. Hyperattenuating cortical lesion in the lower pole of the right kidney remains concerning for RCC. 3. Stable left intrarenal calculi. No operative uropathy. 4. Mild bladder wall thickening, possibly the result of outlet obstruction from prostate hypertrophy. Signed by: Dr. Ericka Garcia MD on 05/20/2020 5:34 PM Dictated By: ERICKA GARCIA MD 33 Transcribed By: APOORVA on 05/20/201733 COPY TO: PER AU MD CT ABDOMEN/PELVIS W 2020-05-12 19:36:00 [place] [address] Patient Name: NOEMY ARGUETA MR #: [id number] : 1935 Age/Sex: 84/M [facility] #: [id number] [facility] Physician: Ordered by: NIECY ARZOLA MD Report #: [id number] Location: CT Room/Bed: Procedure: [id number] CT/CT ABDOMEN/PELVIS W Exam Date: 05/12/20 Exam Time: 1809 REPORT STATUS: Signed EXAM: CT Abdomen and Pelvis WITH contrast INDICATION: Abdominal pain and constipation. COMPARISON: None. TECHNIQUE: Abdomen and pelvis were scanned utilizing a multidetector helical scanner from the lung base to the pubic symphysis after administration of IV contrast. Coronal and sagittal reformations were obtained. Routine protocol was performed. Scan was performed when during portal venous phase. IV CONTRAST: 100 mL of Isovue 370 ORAL CONTRAST: None COMPLICATIONS: None RADIATION DOSE: Total DLP: 548.95 mGy*cm Estimated effective dose: (DLP x 0.015 x size factor) mSv CTDIvol has been reviewed. It is below the limits set by the Radiation Protocol Committee (RPC). Dose modulation, iterative reconstruction, and/or weight based adjustment of the mA/kV was utilized to reduce the radiation dose to as low as reasonably achievable. FINDINGS: LINES and TUBES: None. LOWER THORAX: Normal size heart with atherosclerotic calcification of the coronary vessels. The lower thorax is otherwise normal. HEPATOBILIARY: No focal hepatic lesions. No biliary ductal dilation. GALLBLADDER: Status post cholecystectomy. No extrahepatic biliary ductal dilatation. SPLEEN: No splenomegaly. PANCREAS: No focal masses or ductal dilatation. ADRENALS: No adrenal nodules KIDNEYS/URETERS: There is a nonobstructive 5 mm stone in the inferior pole of the left kidney. There are multiple exophytic cysts in the right kidney. There is a hyperdense exophytic lesion in the inferior pole of the right kidney which measures approximately 7 mm (ser ies 2 image 41). No hydronephrosis bilaterally. GI TRACT: There is moderate stool burden throughout the colon with air-fluid levels seen in the transverse colon. No abnormal distention, wall thickening, or evidence of bowel obstruction. Appendix is normal. PELVIC ORGANS/BLADDER: Multiple seeds in the prostate gland. LYMPH NODES: No lymphadenopathy. VESSELS: Unremarkable. PERITONEUM / RETROPERITONEUM: No free air or fluid. BONES: Multilevel degenerative changes of the spine with no suspicious osteolytic or osteoblastic lesions. There are multiple healed right rib fractures. SOFT TISSUES: Unremarkable. IMPRESSION: 1. Moderate stool burden throughout the colon with air-fluid levels seen in the transverse colon. This can present clinically as constipation. However, no evidence of bowel obstruction or inflammation. 2. Hyperdense exophytic lesion in the inferior pole of the right kidney which measures approximately 7 mm. This may represent hyperdense cysts, however a nonemergent CT of the abdomen/pelvis (renal mass protocol) is recommended to exclude possibility of malignancy. 3. Nonobstructive left nephrolithiasis. Signed by: Riley Cervantes MD on 05/12/2020 8:04 PM Dictated By: RILEY CERVANTES MD 03 Transcribed By: APOORVA on 05/12/202003 COPY TO: NIECY ARZOLA MD ABDOMEN-1VIEW (KU) 2020-05-11 18:06:00 [place] [address] Patient Name: NOEMY ARGUETA MR #: [id number] : 1935 Age/Sex: 84/M Req #: [id number] Adm Physician: Ordered by: KLAUDIA ARZOLA MD Report #: [id number] Location: [facility] Room/Bed: Procedure: [id number] DX/ABDOMEN-1VIEW (KUB) Exam Date: 05/11/20 Exam Time: 1722 REPORT STATUS: Signed EXAM: Abdomen Radiograph 1 View(s) INDICATION: Esophagitis and constipation. COMPARISON: None FINDINGS: No abnormalities in the lower chest. No lines or tubes. There is moderate stool burden throughout the colon. No dilated loops of small bowel. No abnormal abdominal calcifications. No abnormal soft tissue masses. Status post cholecystectomy. No pneumoperitoneum. No acute osseous abnormality. Multilevel degenerative changes in the lumbar spine and pelvis. IMPRESSION: Nonobstructive bowel gas pattern with moderate stool burden throughout the colon. Signed by: Riley Cervantes MD on 05/11/2020 6:16 PM Dictated By: RILEY CERVANTES MD 15 Transcribed By: APOORVA on 05/11/201815 COPY TO: KLAUDIA ARZOLA MD CHEST SINGLE (PORTABLE) 2020-04-02 07:07:00 [place] [address] Patient Name: NOEMY ARGUETA MR #: [id number] : 1935 Age/Sex: 84/M Req #: [id number] Adm Physician: AG JACOBSEN MD Ordered by: ANITHA POLANCO MD, MD Report #: [id number] Location: [facility] Room/Bed: [place] [address] Procedure: [id number] DX/CHEST SINGLE (PORTABLE) Exam Date: 04/02/20 Exam Time: 0510 REPORT STATUS: Signed EXAMINATION: CHEST SINGLE (PORTABLE) INDICATION: Y HYPOXIA [id number] Y COMPARISON: 04/01/2020 FINDINGS: AP view TUBES [...] ANITHA POLANCO CT BRAIN WO 2020-04-01 11:20:00 [place] [address] Patient Name: NOEMY ARGUETA MR #: [id number] : 1935 Age/Sex: 84/M Req #: [id number] Adm Physician: Ordered by: ANITHA POLANCO MD, MD Report #: [id number] Location: ER Room/Bed: Procedure: [id number] CT/CT BRAIN WO Exam Date: 04/01/20 Exam [...] ANITHA POLANCO CHEST SINGLE (PORTABLE) 2020-04-01 11:17:00 [place] [address] Patient Name: NOEMY ARGUETA MR #: [id number] : 1935 Age/Sex: 84/M Req #: [id number] Adm Physician: Ordered by: ANITHA POLANCO MD, MD Report #: [id number] Location: ER Room/Bed: Procedure: [id number] DX/CHEST SINGLE (PORTABLE) Exam Date: 04/01/20 Exam Time: 1025 REPORT STATUS: Signed EXAMINATION: CHEST SINGLE (PORTABLE) INDICATION: Y ERMD ORDER [id number] Y COMPARISON: 03/13/2020 FINDINGS: AP view [...] 11:19 AM Dictated By: KIRSTY MCCARTHY MD 111 Transcribed By: APOORVA on 04/01/20 111 COPY TO: ANITHA POLANCO CHEST SINGLE (PORTABLE) 2020-03-13 18:24:00 [place] [address] Patient Name: NOEMY ARGUETA MR #: [id number] : 1935 Age/Sex: 84/M Req #: [id number] Adm Physician: Ordered by: PER AU MD Report #: [id number] Location: ER Room/Bed: Procedure: [id number] DX/CHEST SINGLE (PORTABLE) Exam Date: 03/13/20 Exam [...] Test Item Bedside Glucose (test code = 68279-7) 123 70-120 H Meter ID: [id number] Country Memorial HospitalClumped Platelets 2019-05-15 08:26:00* Test Item Value Reference Range Interpretation Comments Clumped Platelets (test code = 7796-6) NONE NONE [facility] Pxkev3343-44-10 05:59:00* Test Item Value Reference Range Interpretation Comments Sodium Level (test code = 2951-2) 141 136-145 [facility] HospitalPotassium Puxmb9145-27-46 05:59:00* Test Item Value Reference Range Interpretation Comments Potassium Level (test code = 2823-3) 3.4 3.5-5.1 L [facility] HospitalChloride Qrhoz2780-36-74 05:59:00* Test Item Value Reference Range Interpretation Comments Chloride Level (test code = 2075-0) 110 98-107 H [facility] HospitalCarbon Dioxide Tpyhm5744-71-03 05:59:00* Test Item Value Reference Range Interpretation Comments Carbon Dioxide Level (test code = 2028-9) 23 22-29 [facility] HospitalAnion Vdf0018-70-57 05:59:00* Test Item Value Reference Range Interpretation Comments Anion Gap (test code = 30333-1) 11.4 8-16 [facility] HospitalBlood Urea Atxqqlwf7401-07-92 05:59:00* Test Item Value Reference Range Interpretation Comments Blood Urea Nitrogen (test code = 3094-0) 15 - [facility] HospitalCreatinine2019-08-16 05:59:00* Test Item Value Reference Range Interpretation Comments Creatinine (test code = 2160-0) 0.96 0.72-1.25 [facility] HospitalBUN/Creatinine Gxruf6858-82-29 05:59:00* Test Item Value Reference Range Interpretation Comments BUN/Creatinine Ratio (test code = 3097-3) 16 03-24 [facility] HospitalEstimat Glomerular Filtration Rate 2019-05-15 05:59:00* Test Item Value Reference Range Interpretation Comments Estimat Glomerular Filtration Rate (test code = 349205866) > 60 >60 Ranges were taken from the National Kidney Disease Education Program and the [facility] Kidney Foundation literature.Reference ranges:60 or greater: Qkccks87-38 ( for 3 consecutive months): Chronic kidney disease 15 or less: Kidney failureGonzales Memorial HospitalGlucose Ieicy6281-63-65 05:59:00* Test Item Value Reference Range Interpretation Comments Glucose Level (test code = NPS2732) 122 74-118 H [facility] HospitalCalcium Uaeig9765-46-37 05:59:00* Test Item Value Reference Range Interpretation Comments Calcium Level (test code = 02535-9) 7.6 8.4-10.2 L [facility] HospitalTotal Dnpzgegqd4845-23-11 05:59:00* Test Item Value Reference Range Interpretation Comments Total Bilirubin (test code = 1975-2) 0.3 0.2-1.2 [facility] HospitalAspartate Amino Transf (AST/SGOT) 2019-05-15 05:59:00* Test Item Value Reference Range Interpretation Comments Aspartate Amino Transf (AST/SGOT) (test code = Aspartate Amino Transf (AST/SGOT)) 15 [facility] HospitalAlanine Aminotransferase (ALT/SGPT) 2019-05-15 05:59:00* Test Item Value Reference Range Interpretation Comments Alanine Aminotransferase (ALT/SGPT) (test code = 1742-6) 6 0-55 [facility] HospitalTotal Eqizevq4486-76-47 05:59:00* Test Item Value Reference Range Interpretation Comments Total Protein (test code = 2885-2) 4.8 6.5-8.1 L [facility] HospitalAlbumin2019-08-16 05:59:00* Test Item Value Reference Range Interpretation Comments Albumin (test code = 1751-7) 2.1 3.5-5.0 L [facility] HospitalGlobulin2019-08-16 05:59:00* Test Item Value Reference Range Interpretation Comments Globulin (test code = 29811-4) 2.7 2.3-3.5 [facility] HospitalAlbumin/Globulin Ltlki1855-73-19 05:59:00 * Test Item Value Reference Range Interpretation Comments Albumin/Globulin Ratio (test code = 1759-0) 0.8 0.8-2.0 [facility] HospitalAlkaline Fhlxjnndjox3554-10-76 05:59:00* Test Item Value Reference Range Interpretation Comments Alkaline Phosphatase (test code = 6768-6) 56 40-150 [facility] HospitalWhite Blood Yycwl3526-65-03 05:58:00* Test Item Value Reference Range Interpretation Comments White Blood Count (test code = 6690-2) 7.18 4.8-10.8 [facility] HospitalRed Blood Agmey9330-81-56 05:58:00* Test Item Value Reference Range Interpretation Comments Red Blood Count (test code = 789-8) 3.55 4.3-5.7 L [facility] HospitalHemoglobin2019-08-16 05:58:00* Test Item Value Reference Range Interpretation Comments Hemoglobin (test code = 94573-1) 10.7 14.0-18.0 L [facility] HospitalHematocrit2019-08-16 05:58:00* Test Item Value Reference Range Interpretation Comments Hematocrit (test code = 4544-3) 32.4 38.2-49.6 L [facility] HospitalMean Corpuscular Qpndya1328-44-25 05:58:00* Test Item Value Reference Range Interpretation Comments Mean Corpuscular Volume (test code = 787-2) 91.3 81-99 [facility] HospitalMean Corpuscular Opzhriooum1983-40-11 05:58:00* Test Item Value Reference Range Interpretation Comments Mean Corpuscular Hemoglobin (test code = 785-6) 30.1 28-32 [facility] HospitalMean Corpuscular Hemoglobin Concent 2019-05-15 05:58:00* Test Item Value Reference Range Interpretation Comments Mean Corpuscular Hemoglobin Concent (test code = 786-4) 33.0 31-35 [facility] HospitalRed Cell Distribution Qxizd3231-68-60 05:58:00* Test Item Value Reference Range Interpretation Comments Red Cell Distribution Width (test code = 04781-2) 13.7 11.7 -14.4 [facility] HospitalPlatelet Khlkh4313-17-79 05:58:00* Test Item Value Reference Range Interpretation Comments Platelet Count (test code = 777-3) 134 140-360 L [facility] HospitalNeutrophils (%) (Auto)2019-05-15 05:58:00 * Test Item Value Reference Range Interpretation Comments Neutrophils (%) (Auto) (test code = 30688-1) 68.2 38.7-80.0 [facility] HospitalLymphocytes (%) (Auto)2019-05-15 05:58:00 * Test Item Value Reference Range Interpretation Comments Lymphocytes (%) (Auto) (test code = 736-9) 19.8 18.0-39.1 [facility] HospitalMonocytes (%) (Auto)2019-05-15 05:58:00* Test Item Value Reference Range Interpretation Comments Monocytes (%) (Auto) (test code = 5905-5) 9.9 4.4-11.3 [facility] HospitalEosinophils (%) (Auto)2019-05-15 05:58:00 * Test Item Value Reference Range Interpretation Comments Eosinophils (%) (Auto) (test code = 713-8) 1.3 0.0-6.0 [facility] HospitalBasophils (%) (Auto)2019-05-15 05:58:00* Test Item Value Reference Range Interpretation Comments Basophils (%) (Auto) (test code = 706-2) 0.4 0.0-1.0 [facility] HospitalIM GRANULOCYTES %2019-05-15 05:58:00* Test Item Value Reference Range Interpretation Comments IM GRANULOCYTES % (test code = IM GRANULOCYTES %) 0.4 0.0- 1.0 [facility] HospitalNeutrophils # (Auto)2019-05-15 05:58:00* Test Item Value Reference Range Interpretation Comments Neutrophils # (Auto) (test code = 751-8) 4.9 2.1-6.9 [facility] HospitalLymphocytes # (Auto)2019-05-15 05:58:00* Test Item Value Reference Range Interpretation Comments Lymphocytes # (Auto) (test code = 63227-2) 1.4 1.0-3.2 [facility] HospitalMonocytes # (Auto)2019-05-15 05:58:00* Test Item Value Reference Range Interpretation Comments Monocytes # (Auto) (test code = 742-7) 0.7 0.2-0.8 [facility] HospitalEosinophils # (Auto)2019-05-15 05:58:00* Test Item Value Reference Range Interpretation Comments Eosinophils # (Auto) (test code = 711-2) 0.1 0.0-0.4 [facility] HospitalBasophils # (Auto)2019-05-15 05:58:00* Test Item Value Reference Range Interpretation Comments Basophils # (Auto) (test code = 704-7) 0.0 0.0-0.1 [facility] HospitalAbsolute Immature Granulocyte (auto 2019-05-15 05:58:00* Test Item Value Reference Range Interpretation Comments Absolute Immature Granulocyte (auto (faye t code = Absolute Immature Granulocyte (auto) 0.03 0-0.1 [facility]ennialBlood Rxofpch5162-37-72 23:56:00* Test Item Value Reference Range Interpretation Comments Blood Culture (test code = 48152935) NO GROWTH AFTER 24 HOURS [facility] HospitalHIPS BILAT TWO VWS(+/- PELVIS)2019-05-14 17:32:00 [facility] [address] [place] [address] Patient Name: NOEMY ARGUETA MR #: [id number] : 1935 Age/Sex: 83/M Req #: [id number] Adm Physician: HAZEL SHWA MD Ordered by: HAZEL SHAW MD Report #: [id number] Location: MED/SURG2 Room/Bed: [facility] Procedure: [id number] D X/HIPS BILAT TWO VWS(+/- PELVIS) Exam [...] COPY TO: HAZEL SHAW MD Creatine Kinase NL6693-21-70 09:00:00* Test Item Value Reference Range Interpretation Comments Creatine Kinase MB (test code = 58968-6) 5.60 0-5.0 H [facility] HospitalTroponin K1993-56-51 09:00:00* Test Item Value Reference Range Interpretation Comments Troponin I (test code = BPR1117) 0.015 0-0.300 [facility] HospitalCreatine Fjthln4319-43-31 08:35:00* Test Item Value Reference Range Interpretation Comments Creatine Kinase (test code = 2157-6) 257 30-200 H [facility] HospitalUrine TYM6722-72-34 03:56:00* Test Item Value Reference Range Interpretation Comments Urine WBC (test code = 5821-4) 0-5 0-5 [facility] HospitalUrine XAG4765-79-92 03:56:00* Test Item Value Reference Range Interpretation Comments Urine RBC (test code = 84164-5) 0-5 0-5 [facility] HospitalUrine Xgadspli9298-14-41 03:56:00* Test Item Value Reference Range Interpretation Comments Urine Bacteria (test code = 95707-1) RARE NONE [facility] HospitalUrine Epithelial Qgqbj8501-50-40 03:56:00 * Test Item Value Reference Range Interpretation Comments Urine Epithelial Cells (test code = 55321-2) FEW NONE [facility] HospitalUrine Hmbdz2143-24-33 03:50:00* Test Item Value Reference Range Interpretation Comments Urine Color (test code = 5778-6) YELLOW YELLOW [facility] HospitalUrine Vwuhpis6343-21-55 03:50:00* Test Item Value Reference Range Interpretation Comments Urine Clarity (test code = 76648-8) CLEAR CLEAR [facility] HospitalUrine Specific Zzttpcm8783-75-25 03:50:00 * Test Item Value Reference Range Interpretation Comments Urine Specific [place] (test code = 5811-5) <=1.005 1.010-1.02 5 [facility] HospitalUrine oP0201-25-34 03:50:00* Test Item Value Reference Range Interpretation Comments Urine pH (test code = 25749-4) 6 5-7 [facility] HospitalUrine Leukocyte Tqifihel1070-16-66 03:50:00* Test Item Value Reference Range Interpretation Comments Urine Leukocyte Esterase (test code = 93531-8) NEGATIVE NEGATIV E [facility] HospitalUrine Pltplje1779-68-55 03:50:00* Test Item Value Reference Range Interpretation Comments Urine Nitrite (test code = 82223-1) NEGATIVE NEGATIVE [facility] HospitalUrine Aokurxg9398-38-00 03:50:00* Test Item Value Reference Range Interpretation Comments Urine Protein (test code = 28091-7) NEGATIVE NEGATIVE [facility] HospitalUrine Glucose (UA)2019-05-14 03:50:00* Test Item Value Reference Range Interpretation Comments Urine Glucose (UA) (test code = 88967-8) NEGATIVE NEGATIVE [facility] HospitalUrine Smxtzxn9702-70-47 03:50:00* Test Item Value Reference Range Interpretation Comments Urine Ketones (test code = 43527-5) NEGATIVE NEGATIVE [facility] Rxdkophyzvna1339-93-99 03:50:00* Test Item Value Reference Range Interpretation Comments Urine Urobilinogen (test code = 13045-2) 0.2 0.2-1 [facility] Yvjvyucah3115-46-89 03:50:00* Test Item Value Reference Range Interpretation Comments Urine Bilirubin (test code = 1977-8) NEGATIVE NEGATIVE [facility] Gidns3308-73-48 03:50:00* Test Item Value Reference Range Interpretation Comments Urine Blood (test code = 41329-5) NEGATIVE NEGATIVE [facility] Opiates Zkoaxz1576-00-97 03:49:00* Test Item Value Reference Range Interpretation Comments Urine Opiates Screen (test code = 60584-7) POSITIVE NEGATIVE H ALL TESTS PERFORMED MANUALLY ON [employer] TOX/SEE TEST This test provides only a sc reen. Positive results should be repeated by a confirmatory test.[facility] Barbiturates Gieqca1573-30-63 03:49:00* Test Item Value Reference Range Interpretation Comments Urine Barbiturates Screen (test code = 800936943) NEGATIVE NEGA TIVE [facility] Phencyclidine Nrbnea4065-03-02 03:49:00* Test Item Value Reference Range Interpretation Comments Urine Phencyclidine Screen (test code = 46731-9) NEGATIVE NEGAT [facility] HospitalU[facility] Amphetamines Xzvgdk0238-06-86 03:49:00* Test Item Value Reference Range Interpretation Comments Urine Amphetamines Screen (test code = 68598-1) NEGATIVE NEGATI VE [facility] HospitalU[facility] Methamphetamines Lusrqq5078-32-74 03:49:00* Test Item Value Reference Range Interpretation Comments Urine Methamphetamines Screen (test code = Urine Metha mphetamines Screen) NEGATIVE NEGATIVE [facility] HospitalU[facility] Benzodiazepines Mvloia1345-58-51 03:49:00* Test Item Value Reference Range Interpretation Comments Urine Benzodiazepines Screen (test code = 41922-8) POSITIVE NEG ATIVE H This test provides only a screen. Positive results should be repeated by a confi rmatory test.[facility] HospitalUrine Cocaine Screen 2019-05-14 03:49:00* Test Item Value Reference Range Interpretation Comments Urine Cocaine Screen (test code = 3398-5) NEGATIVE NEGATIVE [facility] Cannabinoids Veaowk0910-80-60 03:49:00* Test Item Value Reference Range Interpretation Comments Urine Cannabinoids Screen (test code = 72561-3) NEGATIVE NEGATI VE THESE RESULTS ARE FOR MEDICAL TREATMENT ONLYTHIS REPORT CONTAINS UNCONFIR MED SCREENING RESULTS*POSITIVE RESULTS WILL BE CONFIRMED BY REFERENCE LAB UPON R EQUEST CUT-OFFDRUG CLASS CONCENTRATION ng/mLAmphetamines 1000Methamphetamines 1000Cocaine 300Opiate 300Phencyc lidine 25Cannabinoid 50Barbiturates 300Benzodiazepine 300Methadone 300[facility] [id number] 03:49:00* Test Item Value Reference Range Interpretation Comments Urine Methadone Screen (test code = 80959-9) NEGATIVE NEGATIVE THESE RESULTS ARE FOR MEDICAL TREATMENT ONLYTHIS REPORT CONTAINS UNCONFIR MED SCREENING RESULTS*POSITIVE RESULTS WILL BE CONFIRMED BY REFERENCE LAB UPON R EQUEST CUT-OFFDRUG CLASS CONCENTRATION ng/mLAmphetamines 1000Methamphetamines 1000Cocaine Metabolite 300Opiate 300Phencyc lidine 25Cannabinoid 50Barbiturates 300Benzodiazepine 300Methadone 300[facility] [id number] 00:55:00 [facility] [address] [address] Patient Name: NOEMY ARGUETA MR #: [id number] : 1935 Age/Sex: 83/M Req #: [id number] Adm Physician: Ordered by: CINDY BURROWS MD Report #: [id number] Location: ER Room/Bed: Procedure: 43 CT/CT CERVICAL SPINE WO Exam Date: 05/13/19 Exam Time: 9 REPORT STATUS: Signed History: Fall. Comparison studies: [...] foraminal stenosis. . IMPRESSION: 1. No ac quechan cervical spine fracture or dislocation. Reversal of [...] BURROWS MD CHEST SINGLE (PORTABLE) 2019-05-14 00:53:00 [place] [address] Patient Name: NOEMY ARGUETA MR #: [id number] : 1935 Age/Sex: 83/M Req #: [id number] Adm Physician: Ordered by: CINDY BURROWS MD Report #: [id number] Location: ER Room/Bed: Procedure: 60 DX/CHEST SINGLE [...] of the right-sided rib fractures. Signed by: Dr. Shyam Rodríguez D.O., M.M.M. on 05/14/2019 12:58 AM Dictated By: SHYAM RODRÍGUEZ DO COPY TO: CINDY BURROWS MD CT BRAIN [id number] 00:47:00 [address] [place] [address] Patient Name: NOEMY ARGUETA MR #: [id number] : 1935 Age/Sex: 83/M Req #: [id number] Adm Physician: Ordered by: CINDY BURROWS MD Report #: [id number] Location: ER Room/Bed: Procedure: CT/CT BRAIN WO Exam Date: Exam Time: [...] COPY TO: CINDY BURROWS MD Lactic Acid [id number] 00:36:00* Test Item Value Reference Range Interpretation Comments Lactic Acid Level (test code = Lactic Acid Level) 18.7 4.5- 19.8 [facility] [id number] 17:12:00 [address] [place] [address] Patient Name: NOEMY ARGUETA MR #: [id number] : 1935 Age/Sex: 83/M Req #: [id number] Adm Physician: Ordered by: ELMIRA HUGHES MD Report #: [id number] Location: OR Room/Bed: Procedure: [id number] DX/CH EST 2 VIEWS Exam Date: 03/11/19 [...] foc al acute point tenderness. Signed by: Alix MonkOChaz, M.M.M. on 03/11/2019 5:19 PM Dictated By: SHYAM RODRÍGUEZ DO 18 Transcribed By: APOORVA on 03/11/191718 COPY TO: ELMIRA HUGHES MD [id number] 17:11:00* Test Item Value Reference Range Interpretation Comments GLUBED (test code = GLUBED) 98 mg/dL 74-106 N [facility] [id number] 12:12:00* Test Item Value Reference Range Interpretation Comments GLUBED (test code = GLUBED) 163 mg/dL 74-106 H [facility] [id number] 08:00:00* Test Item Value Reference Range Interpretation Comments GLUBED (test code = GLUBED) 90 mg/dL 74-106 N [facility] BASIC METABOLIC [id number] 05:35:00* Test Item Value Reference Range Interpretation [...] CK) 2348 IUnit/L 26-208 H BASIC METABOLIC [id number] 05:16:00* Test Item Value Reference Range Interpretation [...] (CK) (test code = CK) IUnit/L 26-208 [id number] 20:59:00* Test Item Value Reference Range Interpretation Comments GLUBED (test code = GLUBED) 125 mg/dL 74-106 H [facility] [id number] 16:45:00* Test Item Value Reference Range Interpretation Comments GLUBED (test code = GLUBED) 107 mg/dL 74-106 H [facility] URINALYSIS [id number] 13:53:00* Test Item Value Reference Range Interpretation [...] FEW #/HPF NONE Urine Source? Clean CatchURINALYSIS [id number] 13:49:00* Test Item Value Reference Range Interpretation [...] BACU) per HPF NONE Urine Source? Clean [id number] 12:47:00* Test Item Value Reference Range Interpretation Comments GLUBED (test code = GLUBED) 114 mg/dL 74-106 H [facility] [id number] 08:17:00* Test Item Value Reference Range Interpretation Comments GLUBED (test code = GLUBED) 96 mg/dL 74-106 N [facility] BASIC METABOLIC [id number] 08:12:00* Test Item Value Reference Range Interpretation [...] CK) 5208 IUnit/L 26-208 H BASIC METABOLIC [id number] 07:39:00* Test Item Value Reference Range Interpretation [...] (CK) (test code = CK) IUnit/L 26-208 [id number] 21:50:00* Test Item Value Reference Range Interpretation Comments GLUBED (test code = GLUBED) 117 mg/dL 74-106 H Performed by certified jet operator at [facility] - CT L-SPINE W/O [id number] 19:37:00 Name: NOEMY ARGUETA [facility] : 1935 Age/S: 83 / M [address] Unit #: [id number] Loc: [place] [address] Phys: Shannon Corey MD Acct: [id number] Dis Date: Status: ADM IN PHONE #: [phone] Exam Date: 01/21/2019 191 FAX #: [phone] Reason: H/o fall EXAMS: CPT CODE: [id number] CT L-SPINE W/O CONTRAST 91042 REASON FOR EXAM: H/o fall EXAM ORDER [...] W/O CONTRAST 2019-01-21 19:35:00 Name: NOEMY ARGUETA [facility] : 1935 Age/S: 83 / M [address] Unit #: [id number] Loc: [place] [address] Phys: Shannon Corey MD Acct: [id number] Dis Date: Status: ADM IN PHONE #: [phone] Exam Date: 01/21/20191918 FAX #: [phone] Reason: H/o fall EXAMS: CPT CODE: [id number] CT T-SPINE W/O CONTRAST 17965 REASON FOR EXAM: H/o fall EXAM ORDER DATE: 01/21/2019 1:48 PM Ordering M.Alix: Shannon Corey MD PROCEDURE: - CT T-SPINE [...] MARGO(R) CT CTDI: DLP: Trnscb Date/Time: 01/21/2019 (1935) t.SDR.VTL Orig Print D/T: S: 01/21/2019 (1937) CTDI: DLP: PAGE 1 Signed Report - CT C-SPINE W/O CONTRAST 2019-01-21 19:34:00 Name: NOEMY ARGUETA [facility] : 1935 Age/S: 83 / M [address] [facility] Unit #: [id number] Loc: [place] [address] Phys: Shannon Corey MD Acct: [id number] Dis Date: Status: ADM IN PHONE #: [phone] Exam Date: 01/21/20191918 FAX #: [phone] Reason: H/o fall EXAMS: CPT CODE: [id number] CT C-SPINE W/O CONTRAST 47536 REASON FOR EXAM: H/o fall EXAM ORDER [...] CT CTDI: DLP: Trnscb Date/Time: 01/21/2019 (1934) t.TOYR.VTL Orig Print D/T: S: 01/21/2019 (1936) CTDI: DLP: PAGE 1 Signed Report [id number] 15:53:00* Test Item Value Reference Range Interpretation Comments GLUBED (test code = GLUBED) 120 mg/dL 74-106 H Performed by certified jet operator at [facility] - XR RIBS UNI W/CXR 3+V [id number] 12:17:00 FAX: Obey De Souza MD [phone] [place]: B St: ADM FAX: David Goldstein MD [phone] Name: NOEMY ARGUETA [facility] : 1935 Age/S: 83/M [address] Unit #: [id number] Loc: V.[address] [place] [address] Phys: Obey De Souza MD Acct: [id number] Dis Date: Status: ADM IN PHONE #: [phone] Exam Date: 01/20/20196 FAX #: [phone] Reason: rib pain, fall EXAMS: CPT CODE: [id number] XR RIBS UNI W/CXR 3+[place] [address] HISTORY: Pain after fall. COMPARISON: Chest x-ray [...] Trnscrd Date/Time/By: 01/21/2019 (12 17) : By: t.SDR.TH4 Orig Print D/T: S: 01/22/2019 (1147) PAGE 1 Signed Report [id number] 12:13:00* Test Item Value Reference Range Interpretation Comments GLUBED (test code = GLUBED) 114 mg/dL 74-106 H Performed by certified jet operator at [facility] - CT HEAD/BRAIN W/O [id number] 12:02:00 Name: NOEMY ARGUETA [facility] : 1935 Age/S: 83 / M [address] Unit #: [id number] Loc: [place] [address] Phys: Obey De Souza MD Acct: [id number] Dis Date: Status: ADM IN PHONE #: [phone] Exam Date: 01/20/2019 2300 FAX #: [phone] Reason: fall/AMS EXAMS: CPT CODE: [id number] CT HEAD/BRAIN W/O CONT 77947 HISTORY: Confusion. COMPARISON: None available. CT brain [...] De Souza MD; David Porter MD Technologist:AG BENITEZ CT CTDI: DLP: Trnscb Date/Time: 01/21/2019 (1202) t.SDR.TH4 Orig Print D/T: S: 01/21/2019 (1205) CTDI: DLP: PAGE 1 Signed Report [id number] 07:52:00* Test Item Value Reference Range Interpretation Comments GLUBED (test code = GLUBED) 100 mg/dL 74-106 N Performed by certified jet operator at [facility] BASIC METABOLIC [id number] 23:39:00* Test Item Value Reference Range Interpretation [...] CK) 7841 IUnit/L 26-208 H BASIC METABOLIC [id number] 23:09:00* Test Item Value Reference Range Interpretation [...] code = CK) IUnit/L 26-208 BASIC METABOLIC [id number] 23:02:00* Test Item Value Reference Range Interpretation [...] code = CK) IUnit/L 26-208 CBC W/AUTO [id number] 22:47:00* Test Item Value Reference Range Interpretation [...] (test code = MDIFF) NO CBC W/AUTO [id number] 22:39:00* Test Item Value Reference Range Interpretation [...] BA#) K/mm3 0.0-0.2 XR RIBS UNILATERAL/ PA [id number] 14:04:37Procedures: XR RIBS UNILATERAL/ PA CHESTExam Date: [...] PMDictated By: AG WATSONDate: 02/23/2018 14:04MRI BRAIN [place] [address] Patient Name: NOEMY ARGUETA #: [id number] : 1935 Age/Sex: 82/M Req #: [id number] Adm Physician: KLAUDIA ARZOLA MD Ordered by: CARISSA ROSAS MD Report #: [id number] Location: [facility] Room/Bed: [address] [address] Procedure: [id number] MRI /MRI BRAIN WO Exam Date: 06/28/17 [...] By: ELMIRA VEGA MD 30 Transcribed By: PAOORVA on 06/28/172230 COPY TO: CARISSA ROSAS MD CHEST SINGLE (PORTABLE) [place] [address] Patient Name: NOEMY ARGUETA MR #: [id number] : 1935 Age/Sex: 82/M Req #: [id number] Adm Physician: Ordered by: ABEL DE LEÓN Report #: [id number] Location: ER Room/Bed: Procedure: 4821-3805 DX/CHEST SINGLE (PORTABLE) Ex am Date: 06/28/17 [...] TO: ABEL DE LEÓN CT BRAIN WO [place] [address] Patient Name: NOEMY ARGUETA MR #: [id number] : 1935 Age/Sex: 82/M Req #: [id number] Adm Physician: Ordered by: ABEL DE LEÓN Report #: [id number] Location: Room/Bed: Procedure: [id number] CT/CT BRAIN WO Exam Date: Exam Time: [...] TO: SALTY DE LEÓN CT BRAIN WO [place] [address] Patient Name: NOEMY ARGUETA #: [id number] : 1935 Age/Sex: 82/M Req #: [id number] [facility] Physician: Ordered by: MELANIE PRAKASH MD Report #: [id number] Location: Room/Bed: Procedure: 0466-0699 CT/CT BRAIN WO Exam Date: Exam Time: [...]
--- NOTE | 2020-05-20 19:10 | NUR ---
care assumed at this time
[2020-05-20 19:48] VITALS: BP 134/69
== END 2020-05-20 20:15 | disposition home or self-care (01) ==
LOC: ER 17:40
DX: K59.00 Constipation, unspecified (principal); N28.89 Other specified disorders of kidney and ureter; R11.0 Nausea; I48.91 Unspecified atrial fibrillation; Z96.652 Presence of left artificial knee joint
CPT/HCPCS: 36415; 74176; 80053; 81001; 83735; 85025; 87086; 99284; C9113; J2405; J2550; J7030

== ENCOUNTER 2020-06-08 17:26 | Observation (INO) | payer MEDICARE ==
[~2020-06-08] VITALS: Ht 182.9 cm; Wt 96.6 kg
[~2020-06-08 17:26] MED LIST changes: -GABAPENTIN600 MG; +GABAPENTIN600 MG PO
[2020-06-08] MEDS ORDERED: FAMOTIDINE 20 MG/2 ML VIAL IV STA (18:23)
[2020-06-08] MEDS ORDERED: METOCLOPRAMIDE HCL 10 MG/2ML VIAL IV ONE (18:30)
[2020-06-08] MEDS ORDERED: SODIUM CHLORIDE 0.9% 250ML 250 ML IV ONE (18:30)
--- OUTSIDE RECORDS SUMMARY | 2020-06-08 18:30 | XMS REPORT | Continuity of Care Document ---
Author Author [employer] Address Unknown Phone Unavailable Care Team Providers Care Network Technician Name Role Phone Visual IQ Information [facility] Unavailable Un available Problems Problem Status Onset [...] viral diseases Active Diagnosis 09/02/2019 Keegan Ingram long-term (current) use of opiate analgesic Active Diagnosis [...] Orally Active 4mg Orally once a day [place] 04/22/2020 Keegan Ingram Tylenol/Codeine #3 1 tablet as needed Orally Active 300-30 MG Orally every 6 hrs [facility] 04/14/2020 Keegan Ingram Chlordiazepoxide HCl 1 capsule Orally Active 10 MG Orally Twice a day [facility] 04/14/2020 Keegan Ingram Tramadol HCl 1 tablet as needed Orally Active 50 mg Orally twice a day (bid) [place] 08/20/2019 Keegan Ingram Medrol Dose Davis as directed Orally Active 4mg Orally once a day [facility] 12/01/2018 Keegan Ingram Chlordiazepoxide HCl 1 capsule Orally Active 10 MG Orally Twice a day [place] 09/09/2018 Keegan Ingram Chlordiazepoxide HCl 1 capsule Orally Active 25 MG Orally tid for nausea [place] 08/12/2018 Keegna Ingram PredniSONE 1-2 tabs prn for ar thritis flare up Orally Active 5 MG Orally Once a day [facility] 08/05/2018 Keegan Ingram Zofran 1 tablet Orally Active 8 MG Orally Twice a day [facility] 08/05/2018 Keegan Ingram Tylenol/Codeine #3 1 tablet as needed Orally Active 300-30 MG Orally qid [place] 06/10/2018 Keegan Ingram Meclizine HCl 1 tablet as need ed Orally Active 25 MG Orally Once a day [place] 06/10/2018 Keegan Ingram Vitamin D (Ergocalciferol) 1 c apsule Orally Active 57733 UNIT Orally once a week [place] 12/17/2017 Keegan Ingram Simponi Aria as directed Intravenous Active 50 MG/4ML Intravenous [place] 09/02/2017 Keegan Ingram PredniSONE 1-2 tabs PRN Orally Active 5 MG Orally Once a day [place] 08/20/2017 Keegan Ingram PredniSONE 1-2 tabs PRN [...] 220 MCG/INH Inhalation Once a day Paige [place] Hydrocodone-Acetaminophen 1 ta blet as needed Orally [...] Temperature Oral (F) 99.0 F 10/21/2017 Keegan Inrgam Heart Rate 74 10/21/2017 Keegan Ingram Diastolic [...]
[2020-06-08 18:31] LABS: BASOPHILS # (AUTO) 0.1 (0.0-0.1); BASOPHILS % 0.6 % (0.0-1.0); EOSINOPHILS % 0.4 % (0.0-6.0); HEMATOCRIT 40.1 % (38.2-49.6); HEMOGLOBIN 13.4 g/dL (14.0-18.0); LYMPHOCYTES # (AUTO) 1.6 (1.0-3.2); LYMPHOCYTES % 19.7 % (18.0-39.1); MEAN CORPUSCULAR HGB CONC 33.4 g/dL (31-35); MEAN CORPUSCULAR VOLUME 89.7 fL (81-99); MONOCYTES # (AUTO) 0.7 (0.2-0.8); NEUTROPHILS # (AUTO) 5.7 (2.1-6.9); NEUTROPHILS % 69.9 % (38.7-80.0); PLATELET COUNT 167 x10e3/uL (140-360); RED BLOOD COUNT 4.47 x10e6/uL (4.3-5.7); RED CELL DISTRIBUTION WIDTH 13.4 % (11.7-14.4)
--- OUTSIDE RECORDS SUMMARY | 2020-06-08 18:31 | XMS REPORT | Continuity of Care Document ---
Author Author [facility] t Organization [facility] Address [address] [place] [id number] Phone Unavailable Care Team Providers Care Spool Carrier Name Role Phone DAVID PORTER PCP Gerson [...] Type Policy Number Effective Date Expiration Date [facility] [id number] 2019 00:00:00 [facility] Problems Condition Name Condition Details Condition Category Status Onset Date Resolution Date Last Treatment Date Treating Clinician Comments Source Closed fracture of one rib Closed fracture of one rib Problem Active 2018-02-22 00:00:00 [facility] (LUF/IZAIAH/SA) Arthralgia of bilateral temporomandibular joint Arthra [...] [facility] Dizziness Dizziness Problem Active [facility] Foreign body in esophagus Esophageal foreign body Problem Active [facility] Fever Fever Problem Active [facility] Weakness Generalized weakness Problem Active [facility] Pill esophagitis Pill esophagitis Problem Active [facility] Pneumonia Pneumonia Problem Active [facility] Nausea Problem Active [facility] Pre-syncope Problem Active [facility] Constipation Problem Active [facility] Renal mass Problem Active [facility] Knee pain, right Knee pain, right Active Problem 04/24/2020 Keegan Ingram Problem Active 2020-04-24 02:45:06 [facility] Ankylosing spondylitis of multiple sites in spine [...] 01/25/2018 Philippe Gibson Problem Active 2018-01-25 02:45:48 [facility] Bilateral lower extremity edema Bilateral lower extremity edema Active Problem 01/25/2018 Philippe Gibson Problem Active 2018-01-25 02:45:48 [facility] Venous insufficiency Veno us insufficiency Active Diagnosis 03/07/2017 Philippe Gibson Diagnosis Active 2017-03-07 02:45 :07 [facility] Essential hypertension Esse ntial hypertension Active Problem 01/25/2018 Philippe Gibson Problem Active 16-01-28 02:45:48 [facility] Obesity (BMI 30.0-34.9) Obes ity (BMI 30.0-34.9) Active Problem 01/25/2018 Philippe Gibson Problem Active 16-01-28 02:45:48 [facility] Osteoarthritis, unspecified osteoarthritis type, unspe cified site Osteoarthritis, unspecified osteoarthritis type, unspecified site Active Problem 01/25/2018 Philippe Gibson Problem Active 16-01-28 02:45:48 [facility] Family history of abdominal aortic aneurysm (AAA) Family history of abdominal aortic aneurysm (AAA) Active Problem 01/25/2018 Philippe Gibson Problem Active 2018-01-25 02:45:48 Armando Cárdenas Former smoker Form er smoker Active Problem 01/25/2018 Philippe Gibson Problem Active 2018-01-25 02:45:48 [facility] Dyspnea, unspecified type Dysp kobi, unspecified type Active Problem 01/25/2018 Philippe Gibson Problem Active 16-01-28 02:45:48 [facility] Preoperative cardiovascular examination Preoperative cardiovascular examination Active Problem 01/25/2018 Philippe Gibson Problem Active 2018-01-25 02:45:48 Daniel Cárdenas 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 Active Problem 01/25/2018 Philippe Gibson Problem Active 2018-01-25 02:45:48 [facility] Fatigue Fati shane Active Diagnosis 12/19/2017 Keegan Ingram Diagnosis Active 2017-12-19 02:46:26 [facility] Encounter for screening for other viral diseases Encounter for screening for other viral diseases Active Diagnosis 09/02/2019 Keegan Ingram Diagnosis Active 2019-09-02 03:46:32 [facility] snf (current) use of opiate analgesic snf (current) use of opiate analgesic Active Diagnosis 09/02/2019 Keegan Ingram Diagnosis Active 2019-09-02 03:46:32 [facility] Encounter for screening for other bacterial diseases Encounter for screening for other bacterial diseases Active Diagnosis 09/02/2019 Keegan Ingram Diagnosis Active 2019-09-02 03:46:32 [facility] Screening for tuberculosis Scr eening for tuberculosis Active Diagnosis 09/02/2019 Keegan Ingram Diagnosis Active 2019-09-02 03:46:32 [facility] Chronic pain Area Coordinator juwan pain Active Problem 04/24/2020 Keegan Ingram Problem Active 2020-04-24 02:45:06 [facility] Immunocompromised state Immu nocompromised state Active Problem 04/24/2020 Keegan Ingram Problem Active 2020-04-24 02 :45:06 [facility] Allergies, Adverse Reactions, Alerts Allergy Name Allergy Type Status Severity Reaction(s) Onset Date Inacti ve Date Treating Clinician Comments Source Remicade Remicade Active Info Not Available 2020-04-14 00:00:00 [facility] Mirapex Mirapex Active nausea/emesis 2020-04-14 00:00:00 [facility] latex DA Active U 2019-01-21 00:00:00 [facility] Latex Allergy to substance Active RASH 2017-06-28 00:00:00 [facility] N.KBrisaA. N.Dena Active Info Not Available 2017-02-28 00:00:00 [facility] latex DA Active U 2013-02-17 00:00:00 [facility] Latex Gloves Adverse Reaction Active Info Not Available [facility] Family History Family Member Diagnosis Comments Start Date Stop Date Source 33 FATHER Family history of arterial aneurysm [facility] 32 MOTHER Family history of arterial aneurysm [facility] 09 SISTER Family history of neuropathy [facility] Social History Social Habit Start Date Stop Date Quantity Comments Source Sex Assigned At 1935 00:00:00 1935 00:00:00 Male [facility] Smoking Status Start Date Stop Date Source Never smoker [facility] (LUF/IZAIAH/SA) Medications Ordered Medication Name Filled Medication Name Start Date Stop Da te Current Medication? Ordering Clinician Indication Dosage Frequency Signature (SIG) Comments Components Source Medrol Dose Davis 2020-04-22 00:00:00 Yes Gregory Ingram as directed [facility] Nexium 2020-04-19 02:46:07 Yes Milad Rodriguez TAKE ONE CAPSULE BY MOUTH EVERY DAY [facility] Atenolol 2020-04-19 02:46:07 Yes Milad Rodriguez 1 t ablet [facility] Gabapentin 2020-04-19 02:46:07 Yes Milad Rodriguez 1 tablet [facility] Vitamin D 2020-04-19 02:46:07 Yes Milad Rodriguez 1 tablet [facility] Tylenol/Codeine #3 2020-04-14 00:00:00 Yes Milad Rodriguez 1 tablet as needed [facility] Chlordiazepoxide HCl 2020-04-14 00:00:00 Yes Milad Rodriguez 1 capsule [facility] Tramadol HCl 2019-08-20 00:00:00 Yes Maria E Martines 1 tablet as needed [facility] Medrol Dose Davis 2018-12-01 00:00:00 Yes Evaristo Rolonf as directed [facility] Chlordiazepoxide HCl 2018-09-09 00:00:00 Yes Maria E Martines 1 capsule [facility] Chlordiazepoxide HCl 2018-08-12 00:00:00 Yes Evaristo Rolonf 1 capsule [facility] PredniSONE 2018-08-05 00:00:00 Yes Evaristo Olguin 1-2 tabs prn for arthritis flare up [facility] Zofran 2018-08-05 00:00:00 Yes Milad Rodriguez 1 tab let [facility] Nasacort Nasacort 2018-07-31 00:00:00 Yes Duane Mcdonnell 2 puffs in each nostril [facility] Ofloxacin Ofloxacin 2018-07-31 00:00:00 2018-08-06 00:00:00 No Jayla Mcdonnell 4 drops into affected ear [facility] Gabapentin 2018-06-17 02:46:27 Yes Evaristo Olguin 1 tablet [facility] Tylenol/Codeine #3 2018-06-10 00:00:00 Yes Maria E Martines 1 tablet as needed [facility] Meclizine HCl 2018-06-10 00:00:00 Yes Milad Clemonsriz 1 tablet as needed [facility] Atenolol 2018-01-25 02:45:48 Yes Philippe Jeroudi 1 tablet [facility] Azelastine HCl 2018-01-25 02:45:48 Yes Philippe Jeroudi 1 puff in each nostril [facility] Hydrocodone-Acetaminophen 2018-01-25 02:45:48 Yes Chasidyame d Jeroudi 1 tablet as needed [facility] Omeprazole 2018-01-25 02:45:48 Yes Chasidyamed Jeroudi 1 capsule [facility] Triamterene-HCTZ 2018-01-25 02:45:48 Yes Chasidyamed Jeroudi 1 tablet in the morning [facility] Gabapentin 2018-01-25 02:45:48 Yes Philippe Jeroudi 1 tablet [facility] Asmanex 14 Metered Doses 2018-01-25 02:45:48 Yes Mohamed Jeroudi 1 puff in the evening [facility] Pramipexole Dihydrochloride 2018-01-25 02:45:48 Yes Moha med Jeroudi 1 tablet before bedtime [facility] Stiolto Respimat 2018-01-25 02:45:48 Yes Mohamed Jeroudi 2 puffs [facility] Vitamin D (Ergocalciferol) 2017-12-17 00:00:00 Yes Gretta Ingram 1 capsule [facility] Ciprodex Ciprodex 2017-12-11 00:00:00 Yes Duane Mcdonnell not defined [facility] Simponi Aria 2017-09-02 00:00:00 Yes Milad Rodriguez as directed [facility] PredniSONE 2017-08-20 00:00:00 Yes Gregory Ingram 1-2 tabs PRN [facility] PredniSONE 2017-08-20 00:00:00 Yes Wanikia Clau 1-2 tabs PRN [facility] Atenolol 2017-07-23 02:45:17 Yes Mohamed Jeroudi 1 tablet [facility] Gabapentin 2017-07-23 02:45:17 Yes Mohamed Jeroudi 1 tablet [facility] Pramipexole Dihydrochloride 2017-07-23 02:45:17 Yes Moha med Jeroudi 1 tablet before bedtime [facility] Triamterene-HCTZ 2017-07-23 02:45:17 Yes Mohamed Jeroudi 1 tablet in the morning [facility] Omeprazole 2017-07-23 02:45:17 Yes Mohamed Jeroudi 1 capsule [facility] Azelastine HCl 2017-07-23 02:45:17 Yes Mohamed Jeroudi 1 puff in each nostril [facility] Asmanex 14 Metered Doses 2017-07-23 02:45:17 Yes Mohamed Jeroudi 1 puff in the evening [facility] Hydrocodone-Acetaminophen 2017-07-23 02:45:17 Yes Mohame d Jeroudi 1 tablet as needed [facility] Stiolto Respimat 2017-07-23 02:45:17 Yes Mohamed Jeroudi 2 puffs [facility] Ranitidine HCl Ranitidine HCl 2017-07-16 00:00:00 Yes Duane thorne 1 tablet [facility] Tylenol/Codeine #3 2016-12-28 00:00:00 Yes Evaristo Rolon f 1 tablet as needed [facility] Acetaminophen 300 MG / Codeine Phosphate 60 MG Oral Ta blet Acetaminophen 300 MG / Codeine Phosphate 60 MG Oral Tablet Yes 1tab QID [facility] (F/IZAIAH/SA) Atenolol 50 MG Oral Tablet Atenolol 50 MG Oral Tablet Yes 50mg [facility] ([facility]/IZAIAH/SA) gabapentin 600 MG Oral Tablet gabapentin 600 MG Oral Tablet Yes 600mg TID [facility] (F/IZAIAH/SA) Gabapentin Gabapentin Yes Duane Mcdonnell not defin ed [facility] Triamterene Triamterene Yes Duane Mcdonnell not def ined [facility] Atenolol Atenolol Yes Duane Mcdonnell not defined [facility] Acetamin Acetamin Yes Duane Mcdonnell not defined [facility] Acetaminophen With Codeine (Acetaminophen-Codeine Elix ir) 118 Ml ELIXIR Acetaminophen With Codeine (Acetaminophen-Codeine Elixir) 118 Ml ELIXIR Yes [facility] Atenolol Atenolol Yes 50 Daily [facility] Azithromycin (Z-Davis) 250 Mg TABLET Azithromycin (Z-Davis) 250 Mg TABLET Yes [address] [facility] Chlordiazepoxide Hcl Chlordiazepoxide Hcl Yes [facility] Gabapentin Gabapentin Yes [facility] Ondansetron Ondansetron Yes Terrie YANCEY [facility] Pantoprazole Sodium (Protonix) 40 Mg TABLET. Pantopr azole Sodium (Protonix) 40 Mg TABLET. Yes 40 Daily [facility] Smz/Tmp Smz/Tmp Yes [facility] Spironolactone Spironolactone Yes [facility] Gabapentin Gabapentin 2019-05-15 00:00:00 No 600 Thr ee Times A Day [facility] Ropinirole Hcl Ropinirole Hcl 2019-05-15 00:00:00 No .5 Bedtime [facility] Meclizine Hcl Meclizine Hcl 2019-03-11 00:00:00 No 25 Daily [facility] Pramipexole Di-Hcl (Pramipexole Dihydrochloride) 0.25 Mg TABLET Pramipexole Di- Hcl (Pramipexole Dihydrochloride) 0.25 Mg TABLET 2019-03-11 00:00:00 No .5 Twice A Day [facility] Triamterene/Hctz Triamterene/Hctz 2019-03-11 00:00:00 No Daily [facility] Vital Signs Vital Name Observation Time Observation Value Comments Source Body Temperature 2020-05-20 19:48:00 98.4 [degF] [facility] Weight 2020-05-20 15:27:00 210 [lb_av] [facility] BMI (Body Mass Index) 2020-05-20 15:27:00 30.1 kg/m2 [facility] Weight 2020-04-14 20:00:00 [facility] Height 2020-04-14 20:00:00 [facility] Temperature Oral (F) 2020-04-14 20:00:00 97.9 F [facility] Heart Rate 2020-04-14 20:00:00 [facility] Diastolic (mm Hg) 2020-04-14 20:00:00 Mem [facility] Systolic (mm Hg) 2020-04-14 20:00:00 [facility] Weight 2019-08-20 20:30:00 [facility] Height 2019-08-20 20:30:00 [facility] Temperature Oral (F) 2019-08-20 20:30:00 97.7 F [facility] Heart Rate 2019-08-20 20:30:00 [facility] Diastolic (mm Hg) 2019-08-20 20:30:00 [facility] Systolic (mm Hg) 2019-08-20 20:30:00 Armando mitzil Avi Weight 2019-06-16 18:45:00 [facility] Height 2019-06-16 18:45:00 [facility] Temperature Oral (F) 2019-06-16 18:45:00 98.9 F [facility] Heart Rate 2019-06-16 18:45:00 [facility] Diastolic (mm Hg) 2019-06-16 18:45:00 Mem [facility] Systolic (mm Hg) 2019-06-16 18:45:00 Armando rial Avi Weight 2019-01-05 16:45:00 [facility] Height 2019-01-05 16:45:00 [facility] Temperature Oral (F) 2019-01-05 16:45:00 96.8 F [facility] Heart Rate 2019-01-05 16:45:00 [facility] Diastolic (mm Hg) 2019-01-05 16:45:00 [facility] Systolic (mm Hg) 2019-01-05 16:45:00 Armando [facility] [place] Weight 2018-11-07 16:15:00 [facility] Height 2018-11-07 16:15:00 [facility] Temperature Oral (F) 2018-11-07 16:15:00 96.6 F [facility] Heart Rate 2018-11-07 16:15:00 [facility] Diastolic (mm Hg) 2018-11-07 16:15:00 Mem [facility] Systolic (mm Hg) 2018-11-07 16:15:00 Armando rial Avi Weight 2018-11-04 19:15:00 [facility] Height 2018-11-04 19:15:00 [facility] Temperature Oral (F) 2018-11-04 19:15:00 98.0 F [facility] Rate 2018-11-04 19:15:00 [facility] Diastolic (mm Hg) 2018-11-04 19:15:00 [facility] Systolic (mm Hg) 2018-11-04 19:15:00 Armando [facility] [place] Weight 2018-09-09 19:00:00 [facility] Height 2018-09-09 19:00:00 [facility] Temperature Oral (F) 2018-09-09 19:00:00 98.8 F [facility] Rate 2018-09-09 19:00:00 [facility] Diastolic (mm Hg) 2018-09-09 19:00:00 [facility] Systolic (mm Hg) 2018-09-09 19:00:00 Armando rial Avi Weight 2018-08-12 21:00:00 [facility] Height 2018-08-12 21:00:00 [facility] Temperature Oral (F) 2018-08-12 21:00:00 97.2 F [facility] Heart Rate 2018-08-12 21:00:00 [facility] Diastolic (mm Hg) 2018-08-12 21:00:00 [facility] [place] Systolic (mm Hg) 2018-08-12 21:00:00 Armando rial [place] Weight 2018-08-05 19:00:00 [facility] Height 2018-08-05 19:00:00 [facility] Temperature Oral (F) 2018-08-05 19:00:00 98.5 F [facility] Rate 2018-08-05 19:00:00 [facility] Diastolic (mm Hg) 2018-08-05 19:00:00 [facility] Systolic (mm Hg) 2018-08-05 19:00:00 Armando rial Avi Weight 2018-06-10 18:30:00 [facility] Height 2018-06-10 18:30:00 [facility] Temperature Oral (F) 2018-06-10 18:30:00 97.0 F [facility] Heart Rate 2018-06-10 18:30:00 [facility] Diastolic (mm Hg) 2018-06-10 18:30:00 [facility] [place] Systolic (mm Hg) 2018-06-10 18:30:00 Armando jackie Avi Body Temperature 2018-02-22 12:32:00 98.2 F [facility] (LUF/IZAIAH/SA) Respiratory Rate 2018-02-22 12:32:00 20 /min [facility] (LUF/IZAIAH/SA) O2% BldC Oximetry 2018-02-22 12:32:00 98 % [facility] (LUF/IZAIAH/SA) BP Systolic 2018-02-22 12:32:00 128 mm[Hg] [facility] (LUF/IZAIAH/SA) BP Diastolic 2018-02-22 12:32:00 71 mm[Hg] [facility] (LUF/IZAIAH/SA) Height 2018-02-22 12:32:00 71 in [facility] (LUF/IZAIAH/SA) Weight Measured 2018-02-22 12:32:00 237 lbs [facility] (LUF/IZAIAH/SA) BMI (Body Mass Index) 2018-02-22 12:32:00 33.1 [facility] (LUF/IZAIAH/SA) Weight 2018-02-13 18:15:00 [facility] Height 2018-02-13 18:15:00 [facility] Temperature Oral (F) 2018-02-13 18:15:00 97.3 F [facility] Heart Rate 2018-02-13 18:15:00 [facility] Diastolic (mm Hg) 2018-02-13 18:15:00 [facility] [place] Systolic (mm Hg) 2018-02-13 18:15:00 Armando rial Avi Weight 2017-12-16 20:00:00 [facility] Height 2017-12-16 20:00:00 [facility] Temperature Oral (F) 2017-12-16 20:00:00 98.2 F [facility] Heart Rate 2017-12-16 20:00:00 [facility] Diastolic (mm Hg) 2017-12-16 20:00:00 [facility] Systolic (mm Hg) 2017-12-16 20:00:00 Armando [facility] [place] Weight 2017-10-21 21:30:00 [facility] Height 2017-10-21 21:30:00 [facility] Temperature Oral (F) 2017-10-21 21:30:00 99.0 F [facility] Heart Rate 2017-10-21 21:30:00 [facility] Diastolic (mm Hg) 2017-10-21 21:30:00 [facility] [place] Systolic (mm Hg) 2017-10-21 21:30:00 Armando [facility] [place] Weight 2017-02-28 18:00:00 [facility] Height 2017-02-28 18:00:00 [facility] Temperature Oral (F) 2017-02-28 18:00:00 97.3 F [facility] Heart Rate 2017-02-28 18:00:00 [facility] Diastolic (mm Hg) 2017-02-28 18:00:00 [facility] Systolic (mm Hg) 2017-02-28 18:00:00 Armando [facility] [place] Weight 2017-01-31 20:00:00 [facility] Height 2017-01-31 20:00:00 [facility] Temperature Oral (F) 2017-01-31 20:00:00 97.6 F [facility] Heart Rate 2017-01-31 20:00:00 [facility] Diastolic (mm Hg) 2017-01-31 20:00:00 [facility] Systolic (mm Hg) 2017-01-31 20:00:00 Armando [facility] [place] Weight 2017-01-16 20:30:00 [facility] Height 2017-01-16 20:30:00 [facility] Temperature Oral (F) 2017-01-16 20:30:00 98.0 F [facility] Heart Rate 2017-01-16 20:30:00 [facility] Diastolic (mm Hg) 2017-01-16 20:30:00 [facility] Systolic (mm Hg) 2017-01-16 20:30:00 [facility]ando [facility] [place] Procedures Procedure Date / Time Performed Performing Clinician [facility] e CT of abdomen and pelvis without contrast 2020-05-20 00:00:00 [facility] Computed tomography of abdomen and pelvis with contrast 00:00:00 [facility] Computed tomography of brain without radiopaque contrast 2020-03 00:00:00 [facility] Encounters Start Date/Time End Date/Time Encounter Type Admission Type Attendi [facility] Care Department Encounter ID Source 2020-05-20 17:40:00 2020-05-20 20:15:00 Departed Emergency Room PER AU [facility] [id number] [facility] 2020-05-12 16:56:00 2020-05-12 16:56:00 Registered Clinic 3 ARZOLANIECY BENSON [facility] [id number] [facility] 2020-05-11 17:07:00 2020-05-11 17:07:00 Registered Clinic 3 KLAUDIA ARZOLA [facility] [id number] [facility] 2020-04-22 09:51:00 2020-04-22 09:51:00 Outpatient Gregory Ingram MD [place] [id number] Keegan Ingram MD 2020-04-14 15:00:00 2020-04-14 15:00:00 Outpatient Gregory Ingram MD [place] [id number] Keeagn Ingram MD 2020-04-01 12:13:00 2020-04-02 21:44:00 Discharged Inpatient [address] [place] [facility] [id number] [facility] [place] 2020-03-16 13:53:00 2020-03-16 15:50:00 Departed Emergency Room [facility] [id number] [facility] 2020-03-14 13:57:00 2020-03-14 13:57:00 Outpatient Gregory Ingram MD [place] [id number] Keegan Ingram MD 2020-03-13 16:51:00 2020-03-14 00:05:00 Departed Emergency Room [address] [place] [facility] Center [id number] [facility] 2019-11-09 15:05:00 2019-11-09 15:05:00 Outpatient MD GALILEA Cazares MD [place] [id number] Keegan Ingram MD 2019-10-28 16:53:00 2019-10-28 16:53:00 Outpatient MD GALILEA Cazares MD [place] [id number] Keegan Ingram MD 2019-08-20 14:53:00 2019-08-20 14:53:00 Outpatient MD GALILEA Cazares MD [place] [id number] MIRACLE Ingram MD 2019-08-20 14:30:00 2019-08-20 14:30:00 Outpatient Gregory Ingram MD PA [id number] MIRACLE Ingram MD 2019-06-16 13:45:00 2019-06-16 13:45:00 Outpatient Gregory Ingram MD PA [id number] MIRACLE Ingram MD 2019-06-03 12:40:00 2019-06-03 12:40:00 Outpatient MD GALILEA Villa MD [place] [id number] Keegan Ingram MD 2019-05-20 11:17:00 2019-05-20 11:17:00 Outpatient Gregory CALERO [id number] MIRACLE Ingram MD 2019-05-14 02:17:00 2019-05-15 18:35:00 Discharged Inpatient (obs) 1 [facility]ZEL [facility] [id number] [facility] 2019-03-30 14:59:00 2019-03-30 14:59:00 Outpatient Gregory CALERO [id number] Keegan Ingram MD 2019-03-17 07:14:00 2019-03-17 07:14:00 Registered Surgical Day Car e ELMIRA PARRA [facility] [id number] [facility] 2019-03-04 16:27:00 2019-03-04 16:27:00 Outpatient Gregory Ingram MD PA [id number] Keegan Ingram MD 2019-01-08 10:55:00 2019-01-08 10:55:00 [facility] [id number] [facility] 2019-01-05 11:45:00 2019-01-05 11:45:00 Outpatient Gregory CALERO [id number] Keegan Ingram MD 2018-12-01 16:00:00 2018-12-01 16:00:00 Outpatient Gregory CALERO [id number] MIRACLE Ingram MD 2018-11-28 13:18:00 2018-11-28 13:18:00 Outpatient Gregory CALERO [id number] MIRACLE Ingram MD 2018-11-07 10:15:00 2018-11-07 10:15:00 Outpatient Gregory Ingram MD [place] [id number] Keegan Ingram MD 2018-11-04 13:15:00 2018-11-04 13:15:00 Outpatient Gregory CALERO [id number] Keegan Ingram MD 2018-09-09 13:00:00 2018-09-09 13:00:00 Outpatient Gregory CALERO [id number] Keegan Ingram MD 2018-08-26 14:53:00 2018-08-26 14:53:00 Outpatient Gregory CALERO [id number] Keegan Ingram MD 2018-08-12 15:00:00 2018-08-12 15:00:00 Outpatient Gregory CALERO [id number] Keegan Ingram MD 2018-08-05 13:00:00 2018-08-05 13:00:00 Outpatient Gregory CALERO [id number] Keegan Ingram MD 2018-07-31 10:00:00 2018-07-31 10:00:00 [facility]patient [facility] [id number] [facility] 2018-07-30 15:49:00 2018-07-30 15:49:00 Outpatient [facility] [id number] [facility] 2018-06-23 18:55:00 2018-06-23 18:55:00 [facility] [id number] [facility] 2018-06-10 14:46:00 2018-06-10 14:46:00 Outpatient Gregory CALERO [id number] Keegan Ingram MD 2018-06-10 13:30:00 2018-06-10 13:30:00 Outpatient Gregory Ingram MD [place] [id number] Keegan Ingram MD 2018-02-22 12:13:00 2018-02-22 14:30:00 FX 1 RIB LT SIDE INITIAL CL OS FX 1 JOE [facility], [address] [place] [address] , [place] [address] [facility] [id number] [facility] (LUF /IZAIAH/SA) 2018-02-13 13:15:00 2018-02-13 13:15:00 Outpatient Gregory Ingram MD PA [id number] Keegan Ingram MD 2018-02-11 15:39:00 2018-02-11 15:39:00 Outpatient Gregory Ingram MD PA [id number] Keegan Ingram MD 2017-12-17 12:56:00 2017-12-17 12:56:00 Outpatient Gregory Ingram MD PA [id number] Keegan Ingram MD 2017-12-16 15:00:00 2017-12-16 15:00:00 Outpatient Gregory CALERO [id number] Keegan Ingram MD 2017-12-11 13:20:00 2017-12-11 13:20:00 [facility]patient [facility] [id number] [facility] 2017-12-04 13:00:00 2017-12-04 13:00:00 Outpatient [facility] [id number] [facility] 2017-10-22 08:34:00 2017-10-22 08:34:00 Outpatient Gregory Ingram MD PA [id number] Keegan Ingram MD 2017-10-21 15:30:00 2017-10-21 15:30:00 Outpatient Gregory Ingram MD PA [id number] Keegan Ingram MD 2017-02-28 13:00:00 2017-02-28 13:00:00 Outpatient Philippe Gibson MD [place] [id number] [employer] 2017-02-12 11:00:00 2017-02-12 11:00:00 Outpatient Philippe Gibson MD PA [id number] [employer] 2017-01-31 15:00:00 2017-01-31 15:00:00 Outpatient Philippe Gibson MD [place] [id number] [employer] 2017-01-16 15:30:00 2017-01-16 15:30:00 Outpatient Philippe CALERO [id number] [place] Results Test Description Test Time Test Comments Results Result Comments Source CT ABDOMEN/PELVIS WO 2020-05-20 17:22:00 [place] [address] Patient Name: NOEMY ARGUETA MR #: [id number] : 1935 Age/Sex: 84/M Req #: [id number] Adm Physician: Ordered by: PER AU MD Report #: [id number] Location: ER Room/Bed: Procedure: [id number] CT/CT ABDOMEN/PELVIS WO Exam Date: 05/20/20 Exam [...] Color (test code = 5778-6) YELLOW YELLOW [facility] rksckbg6108-35-53 16:58:00* Test Item Value Reference Range Interpretation Comments Urine Clarity (test code = 87771-1) SL CLOUDY [facility]AR [facility] by Test strip 2020-05-20 16:58:00* Test Item Value Reference Range Interpretation Comments Urine Specific [facility] (test code = 5811-5) 1.010 1.010-1.02 5 [facility] pH measurement by automated test wlxux1936-73-28 16:58:00* Test Item Value Reference Range Interpretation Comments Urine pH (test code = 42421-7) 6 5-7 [facility] leukocyte esterase detection by oxwnblll8129-36-11 16:58:00* Test Item Value Reference Range Interpretation Comments Urine Leukocyte Esterase (test code = 5799-2) NEGATIVE NEGATIVE [facility] nitrite fkcvbifzf0896-63-32 16:58:00* Test Item Value Reference Range Interpretation Comments Urine Nitrite (test code = 82410-1) NEGATIVE NEGATIVE [facility] protein measurement by test strip (mass/volume)2020-05-20 16:58:00* Test Item Value Reference Range Interpretation Comments Urine Protein (test code = 5804-0) NEGATIVE NEGATIVE [facility] glucose azirwuaay4989-42-05 16:58:00* Test Item Value Reference Range Interpretation Comments Urine Glucose (UA) (test code = 2349-9) NEGATIVE NEGATIVE [facility] ketones detection by automated test cxijz8955-13-89 16:58:00* Test Item Value Reference Range Interpretation Comments Urine Ketones (test code = 06715-9) NEGATIVE NEGATIVE [facility] Center[facility] urobilinogen measurement by test strip (mass/volume)2020-05-20 16:58:00* Test Item Value Reference Range Interpretation Comments Urine Urobilinogen (test code = 99259-2) 0.2 0.2-1 [facility] total bilirubin measurement (mass/volume)2020-05-20 16:58:00* Test Item Value Reference Range Interpretation Comments Urine Bilirubin (test code = 1978-6) NEGATIVE NEGATIVE [facility] Center[facility] erythrocytes nzmybcaah6020-31-14 16:58:00* Test Item Value Reference Range Interpretation Comments Urine Blood (test code = 63276-4) NEGATIVE NEGATIVE [facility] CenterAutomated urine sediment leukocyte count by microscopy (number/high power field)2020-05-20 16:58:00* Test Item Value Reference Range Interpretation Comments Urine WBC (test code = 5821-4) NONE 0-5 [facility] CenterErythrocytes detection in urine sediment by light qajarjajuq0023-35-49 16:58:00* Test Item Value Reference Range Interpretation Comments Urine RBC (test code = 16880-6) NONE 0-5 [facility] CenterBacteria detection in urine sediment by light nhhrkszuey4389-42-75 16:58:00* Test Item Value Reference Range Interpretation Comments Urine Bacteria (test code = 85721-4) FEW NONE [facility] CenterEpithelial cells detection in urine sediment by light fzkbbfhfoa9967-19-83 16:58:00* Test Item Value Reference Range Interpretation Comments Urine Epithelial Cells (test code = 13911-1) RARE NONE [facility] CenterU[facility] color cympfixhwozrj5437-34-10 16:58:00* Test Item Value Reference Range Interpretation Comments Urine Color (test code = 5778-6) YELLOW YELLOW [facility] CenterU[facility] litwgmt2856-83-26 16:58:00* Test Item Value Reference Range Interpretation Comments Urine Clarity (test code = 85219-6) SL CLOUDY CLEAR [facility] Urine by Test strip 2020-05-20 16:58:00* Test Item Value Reference Range Interpretation Comments Urine Specific [facility] (test code = 5811-5) 1.010 1.010-1.02 5 [facility] Center[facility] pH measurement by automated test dsdog1036-37-80 16:58:00* Test Item Value Reference Range Interpretation Comments Urine pH (test code = 03243-3) 6 5-7 [facility] CenterU[facility] leukocyte esterase detection by xyzygtxp8224-50-35 16:58:00* Test Item Value Reference Range Interpretation Comments Urine Leukocyte Esterase (test code = 5799-2) NEGATIVE NEGATIVE [facility] Center[facility] nitrite rimolozkb9742-93-15 16:58:00* Test Item Value Reference Range Interpretation Comments Urine Nitrite (test code = 86493-7) NEGATIVE NEGATIVE [facility] Center[facility] protein measurement by test strip (mass/volume)2020-05-20 16:58:00* Test Item Value Reference Range Interpretation Comments Urine Protein (test code = 5804-0) NEGATIVE NEGATIVE [facility] CenterU[facility] glucose jrrlknhnd0557-81-89 16:58:00* Test Item Value Reference Range Interpretation Comments Urine Glucose (UA) (test code = 2349-9) NEGATIVE NEGATIVE [facility] Center[facility] ketones detection by automated test cutnw1019-43-26 16:58:00* Test Item Value Reference Range Interpretation Comments Urine Ketones (test code = 37480-7) NEGATIVE NEGATIVE [facility] CenterUrine urobilinogen measurement by test strip (mass/volume)2020-05-20 16:58:00* Test Item Value Reference Range Interpretation Comments Urine Urobilinogen (test code = 59247-5) 0.2 0.2-1 [facility] Center[facility] total bilirubin measurement (mass/volume)2020-05-20 16:58:00* Test Item Value Reference Range Interpretation Comments Urine Bilirubin (test code = 1978-6) NEGATIVE NEGATIVE [facility] CenterU[facility] erythrocytes adpwwpwrg4406-23-51 16:58:00* Test Item Value Reference Range Interpretation Comments Urine Blood (test code = 63989-3) NEGATIVE NEGATIVE [facility] CenterAutomated urine sediment leukocyte count by microscopy (number/high power field)2020-05-20 16:58:00* Test Item Value Reference Range Interpretation Comments Urine WBC (test code = 5821-4) NONE 0-5 [facility] CenterErythrocytes detection in urine sediment by light artugvmyfo2432-27-87 16:58:00* Test Item Value Reference Range Interpretation Comments Urine RBC (test code = 85507-6) NONE 0-5 [facility] CenterBacteria detection in urine sediment by light udktvceied3894-03-92 16:58:00* Test Item Value Reference Range Interpretation Comments Urine Bacteria (test code = 24942-6) FEW NONE [facility] CenterEpithelial cells detection in urine sediment by light cnrgvkwgqv8989-59-92 16:58:00* Test Item Value Reference Range Interpretation Comments Urine Epithelial Cells (test code = 55545-1) RARE NONE [facility] CenterBlood leukocytes automated count (number/volume)2020-05-20 15:36:00* Test Item Value Reference Range Interpretation Comments White Blood Count (test code = 6690-2) 8.36 4.8-10.8 [facility] CenterBlood erythrocytes automated count (number/volume)2020-05-20 15:36:00* Test Item Value Reference Range Interpretation Comments Red Blood Count (test code = 789-8) 5.04 4.3-5.7 [facility] CenterBlood hemoglobin measurement (moles/volume)2020-05-20 15:36:00* Test Item Value Reference Range Interpretation Comments Hemoglobin (test code = 70654-5) 15.1 14.0-18.0 [facility] CenterAutomated blood hematocrit (volume fraction)2020-05-20 15:36:00* Test Item Value Reference Range Interpretation Comments Hematocrit (test code = 4544-3) 45.8 38.2-49.6 [facility] CenterAutomated erythrocyte mean corpuscular hnovho3492-51-63 15:36:00* Test Item Value Reference Range Interpretation Comments Mean Corpuscular Volume (test code = 787-2) 90.9 81-99 [facility] CenterAutomated erythrocyte mean corpuscular hemoglobin (mass per erythrocyte)2020-05-20 15:36:00* Test Item Value Reference Range Interpretation Comments Mean Corpuscular Hemoglobin (test code = 785-6) 30.0 28-32 [facility] CenterAutomated erythrocyte mean corpuscular hemoglobin concentration measurement (mass/volume)2020-05-20 15:36:00* Test Item Value Reference Range Interpretation Comments Mean Corpuscular Hemoglobin Concent (test code = 786-4) 33.0 31-35 [facility] CenterRDW AvlCf-Wtj4185-61-21 15:36:00* Test Item Value Reference Range Interpretation Comments Red Cell Distribution Width (test code = 48347-9) 14.0 11.7 -14.4 [facility] CenterAutomated blood platelet count (count/volume)2020-05-20 15:36:00* Test Item Value Reference Range Interpretation Comments Platelet Count (test code = 777-3) 187 140-360 [facility] CenterAutomated blood segmented neutrophil count as percentage of total wpulgjjpag4689-32-13 15:36:00* Test Item Value Reference Range Interpretation Comments Neutrophils (%) (Auto) (test code = 43721-5) 65.9 38.7-80.0 [facility] CenterAutat[facility] health mercyed blood lymphocyte count as percentage ot total dsjfyaybav4654-93-44 15:36:00* Test Item Value Reference Range Interpretation Comments Lymphocytes (%) (Auto) (test code = 736-9) 24.4 18.0-39.1 [facility] CenterAutomated blood monocyte count as percentage of total kpsmcnsnyx4978-46-97 15:36:00* Test Item Value Reference Range Interpretation Comments Monocytes (%) (Auto) (test code = 5905-5) 8.1 4.4-11.3 [facility] CenterAutomated blood eosinophil count as percentage of total qfrgsjbvdh9805-08-68 15:36:00* Test Item Value Reference Range Interpretation Comments Eosinophils (%) (Auto) (test code = 713-8) 0.6 0.0-6.0 [facility] CenterAutomated blood basophil count as percentage of total jdgoviprud9886-77-77 15:36:00* Test Item Value Reference Range Interpretation Comments Basophils (%) (Auto) (test code = 706-2) 0.6 0.0-1.0 [facility] CenterFluoroscopic procedure less than one hour sxfgjota4428-09-97 15:36:00* Test Item Value Reference Range Interpretation Comments IM GRANULOCYTES % (test code = IM GRANULOCYTES %) 0.4 0.0- 1.0 [facility] CenterAutomated blood neutrophil count 2020-05-20 15:36:00* Test Item Value Reference Range Interpretation Comments Neutrophils # (Auto) (test code = 751-8) 5.5 2.1-6.9 [facility] CenterBlood lymphocytes count (number/volume) 2020-05-20 15:36:00* Test Item Value Reference Range Interpretation Comments Lymphocytes # (Auto) (test code = 37882-0) 2.0 1.0-3.2 [facility] CenterBlood monocytes automated count (number/volume)2020-05-20 15:36:00* Test Item Value Reference Range Interpretation Comments Monocytes # (Auto) (test code = 742-7) 0.7 0.2-0.8 [facility] CenterAutomated blood eosinophil count 2020-05-20 15:36:00* Test Item Value Reference Range Interpretation Comments Eosinophils # (Auto) (test code = 711-2) 0.1 0.0-0.4 [facility] CenterAutomated blood basophil count (count/volume)2020-05-20 15:36:00* Test Item Value Reference Range Interpretation Comments Basophils # (Auto) (test code = 704-7) 0.1 0.0-0.1 [facility] CenterFluoroscopic procedure less than one hour nwlrvnto6363-32-42 15:36:00* Test Item Value Reference Range Interpretation Comments Absolute Immature Granulocyte (auto (faye t code = Absolute Immature Granulocyte (auto) 0.03 0-0.1 [facility] Hospitaler[facility] or plasma sodium measurement (moles/volume)2020-05-20 15:36:00* Test Item Value Reference Range Interpretation Comments Sodium Level (test code = 2951-2) 140 136-145 [facility] Hospitalerum or plasma potassium measurement (moles/volume)2020-05-20 15:36:00* Test Item Value Reference Range Interpretation Comments Potassium Level (test code = 2823-3) 4.1 3.5-5.1 [facility] Hospitalerum or plasma chloride measurement (moles/volume)2020-05-20 15:36:00* Test Item Value Reference Range Interpretation Comments Chloride Level (test code = 2075-0) 104 98-107 [facility] Hospitalerum or plasma carbon dioxide, total measurement (moles/volume)2020-05-20 15:36:00* Test Item Value Reference Range Interpretation Comments Carbon Dioxide Level (test code = 2028-9) 23 22-29 [facility] Hospitalerum or plasma anion mjf0472-30-57 15:36:00* Test Item Value Reference Range Interpretation Comments Anion Gap (test code = 24230-2) 17.1 8-16 [facility] Hospitalerum or plasma urea nitrogen measurement (mass/volume)2020-05-20 15:36:00* Test Item Value Reference Range Interpretation Comments Blood Urea Nitrogen (test code = 3094-0) 12 7-26 [facility] Hospitalerum or plasma creatinine measurement (mass/volume)2020-05-20 15:36:00* Test Item Value Reference Range Interpretation Comments Creatinine (test code = 2160-0) 1.31 0.72-1.25 [facility] Hospitalerum or plasma urea nitrogen/creatinine mass usyjy5420-72-41 15:36:00* Test Item Value Reference Range Interpretation Comments BUN/Creatinine Ratio (test code = 3097-3) 9 6-25 [facility] CenterEstimated glomerular filtration rate (GFR) zfmvmkjumlzpx5407-43-18 15:36:00* Test Item Value Reference Range Interpretation Comments Estimat Glomerular Filtration Rate (test code = 224943243) 52 >60 Ranges were taken from the National Kidney Disease Education Program and the [facility] Kidney Foundation literature.Reference ranges:60 or greater: Tkqnqn99-62 ( for 3 consecutive months): Chronic kidney disease 15 or less: Kidney failureHereford [facility] Medical CenterGlucose faoejbkncqu3252-87-61 15:36:00* Test Item Value Reference Range Interpretation Comments Glucose Level (test code = NOK7781) 120 74-118 [facility] Hospitalerum or plasma calcium measurement (mass/volume)2020-05-20 15:36:00* Test Item Value Reference Range Interpretation Comments Calcium Level (test code = 00377-8) 9.6 8.4-10.2 [facility] Hospitalerum or plasma magnesium measurement (mass/volume)2020-05-20 15:36:00* Test Item Value Reference Range Interpretation Comments Magnesium Level (test code = 01327-3) 1.5 1.3-2.1 [facility] Hospitalerum or plasma total bilirubin measurement (mass/volume)2020-05-20 15:36:00* Test Item Value Reference Range Interpretation Comments Total Bilirubin (test code = 1975-2) 0.5 0.2-1.2 [facility] CenterFluoroscopic procedure less than one hour aojpcqim0962-93-49 15:36:00* Test Item Value Reference Range Interpretation Comments Aspartate Amino Transf (AST/SGOT) (test code = Aspartate Amino Transf (AST/SGOT)) 15 5-34 [facility] Hospitalerum or plasma alanine aminotransferase measurement (enzymatic activity/volume)2020-05-20 15:36:00* Test Item Value Reference Range Interpretation Comments Alanine Aminotransferase (ALT/SGPT) (test code = 1742-6) 10 0-55 [facility] Hospitalerum or plasma protein measurement (mass/volume)2020-05-20 15:36:00* Test Item Value Reference Range Interpretation Comments Total Protein (test code = 2885-2) 7.6 6.5-8.1 [facility] Hospitalerum or plasma albumin measurement (mass/volume)2020-05-20 15:36:00* Test Item Value Reference Range Interpretation Comments Albumin (test code = 1751-7) 4.0 3.5-5.0 [facility] CenterPlasma globulin measurement (mass/volume) 2020-05-20 15:36:00* Test Item Value Reference Range Interpretation Comments Globulin (test code = 51686-5) 3.6 2.3-3.5 [facility] Hospitalerum or plasma albumin/globulin mass zsuvg9704-69-44 15:36:00* Test Item Value Reference Range Interpretation Comments Albumin/Globulin Ratio (test code = 1759-0) 1.1 0.8-2.0 [facility] Hospitalerum or plasma alkaline phosphatase measurement (enzymatic activity/volume)2020-05-20 15:36:00* Test Item Value Reference Range Interpretation Comments Alkaline Phosphatase (test code = 6768-6) 54 40-150 [facility] CenterBlood leukocytes automated count (number/volume)2020-05-20 15:36:00* Test Item Value Reference Range Interpretation Comments White Blood Count (test code = 6690-2) 8.36 4.8-10.8 [facility] CenterBlood erythrocytes automated count (number/volume)2020-05-20 15:36:00* Test Item Value Reference Range Interpretation Comments Red Blood Count (test code = 789-8) 5.04 4.3-5.7 [facility] CenterBlood hemoglobin measurement (moles/volume)2020-05-20 15:36:00* Test Item Value Reference Range Interpretation Comments Hemoglobin (test code = 47406-9) 15.1 14.0-18.0 [facility] CenterAutomated blood hematocrit (volume fraction)2020-05-20 15:36:00* Test Item Value Reference Range Interpretation Comments Hematocrit (test code = 4544-3) 45.8 38.2-49.6 [facility] CenterAutomated erythrocyte mean corpuscular fxerqa5400-01-28 15:36:00* Test Item Value Reference Range Interpretation Comments Mean Corpuscular Volume (test code = 787-2) 90.9 81-99 [facility] CenterAutomated erythrocyte mean corpuscular hemoglobin (mass per erythrocyte)2020-05-20 15:36:00* Test Item Value Reference Range Interpretation Comments Mean Corpuscular Hemoglobin (test code = 785-6) 30.0 28-32 [facility] CenterAutomated erythrocyte mean corpuscular hemoglobin concentration measurement (mass/volume)2020-05-20 15:36:00* Test Item Value Reference Range Interpretation Comments Mean Corpuscular Hemoglobin Concent (test code = 786-4) 33.0 31-35 [facility] CenterRDW WqfDw-Yzt0546-07-21 15:36:00* Test Item Value Reference Range Interpretation Comments Red Cell Distribution Width (test code = 80229-4) 14.0 11.7 -14.4 [facility] CenterAutomated blood platelet count (count/volume)2020-05-20 15:36:00* Test Item Value Reference Range Interpretation Comments Platelet Count (test code = 777-3) 187 140-360 [facility] CenterAutomated blood segmented neutrophil count as percentage of total pzfawrocgo9399-07-89 15:36:00* Test Item Value Reference Range Interpretation Comments Neutrophils (%) (Auto) (test code = 64529-7) 65.9 38.7-80.0 [facility] CenterAutomated blood lymphocyte count as percentage ot total voodgngitt9342-68-87 15:36:00* Test Item Value Reference Range Interpretation Comments Lymphocytes (%) (Auto) (test code = 736-9) 24.4 18.0-39.1 [facility] CenterAutomated blood monocyte count as percentage of total shouftmcmt1278-68-46 15:36:00* Test Item Value Reference Range Interpretation Comments Monocytes (%) (Auto) (test code = 5905-5) 8.1 4.4-11.3 [facility] CenterAutomated blood eosinophil count as percentage of total mcvkkatgxy5037-86-45 15:36:00* Test Item Value Reference Range Interpretation Comments Eosinophils (%) (Auto) (test code = 713-8) 0.6 0.0-6.0 [facility] CenterAutomated blood basophil count as percentage of total buygjjgmlf8996-83-47 15:36:00* Test Item Value Reference Range Interpretation Comments Basophils (%) (Auto) (test code = 706-2) 0.6 0.0-1.0 [facility] CenterFluoroscopic procedure less than one hour bfleclik4984-67-63 15:36:00* Test Item Value Reference Range Interpretation Comments IM GRANULOCYTES % (test code = IM GRANULOCYTES %) 0.4 0.0- 1.0 [facility] CenterAutomated blood neutrophil count 2020-05-20 15:36:00* Test Item Value Reference Range Interpretation Comments Neutrophils # (Auto) (test code = 751-8) 5.5 2.1-6.9 [facility] CenterBlood lymphocytes count (number/volume) 2020-05-20 15:36:00* Test Item Value Reference Range Interpretation Comments Lymphocytes # (Auto) (test code = 72243-6) 2.0 1.0-3.2 [facility] CenterBlood monocytes automated count (number/volume)2020-05-20 15:36:00* Test Item Value Reference Range Interpretation Comments Monocytes # (Auto) (test code = 742-7) 0.7 0.2-0.8 [facility] CenterAutomated blood eosinophil count 2020-05-20 15:36:00* Test Item Value Reference Range Interpretation Comments Eosinophils # (Auto) (test code = 711-2) 0.1 0.0-0.4 [facility] CenterAutomated blood basophil count (count/volume)2020-05-20 15:36:00* Test Item Value Reference Range Interpretation Comments Basophils # (Auto) (test code = 704-7) 0.1 0.0-0.1 [facility] CenterFluoroscopic procedure less than one hour hpikjqol3774-31-06 15:36:00* Test Item Value Reference Range Interpretation Comments Absolute Immature Granulocyte (auto (faye t code = Absolute Immature Granulocyte (auto) 0.03 0-0.1 [facility] plasma sodium measurement (moles/volume)2020-05-20 15:36:00* Test Item Value Reference Range Interpretation Comments Sodium Level (test code = 2951-2) 140 136-145 [facility] Hospitalerum or plasma potassium measurement (moles/volume)2020-05-20 15:36:00* Test Item Value Reference Range Interpretation Comments Potassium Level (test code = 2823-3) 4.1 3.5-5.1 [facility] Hospitalerum or plasma chloride measurement (moles/volume)2020-05-20 15:36:00* Test Item Value Reference Range Interpretation Comments Chloride Level (test code = 2075-0) 104 98-107 [facility] Hospitalerum or plasma carbon dioxide, total measurement (moles/volume)2020-05-20 15:36:00* Test Item Value Reference Range Interpretation Comments Carbon Dioxide Level (test code = 2028-9) 23 22-29 [facility] Hospitalerum or plasma anion txf4845-31-90 15:36:00* Test Item Value Reference Range Interpretation Comments Anion Gap (test code = 67833-0) 17.1 8-16 [facility] Hospitalerum or plasma urea nitrogen measurement (mass/volume)2020-05-20 15:36:00* Test Item Value Reference Range Interpretation Comments Blood Urea Nitrogen (test code = 3094-0) 12 7-26 [facility] [facility] creatinine measurement (mass/volume)2020-05-20 15:36:00* Test Item Value Reference Range Interpretation Comments Creatinine (test code = 2160-0) 1.31 0.72-1.25 [facility] urea nitrogen/creatinine mass rvpsx5214-57-11 15:36:00* Test Item Value Reference Range Interpretation Comments BUN/Creatinine Ratio (test code = 3097-3) 9 6-25 [facility] CenterEstimated glomerular filtration rate (GFR) uoqluoqtbxyze3845-95-68 15:36:00* Test Item Value Reference Range Interpretation Comments Estimat Glomerular Filtration Rate (test code = 803332447) 52 >60 Ranges were taken from the National Kidney Disease Education Program and the [facility] literature.Reference ranges:60 or greater: Rbtsct99-07 ( for 3 consecutive months): Chronic kidney disease 15 or less: Kidney failureHereford Regional Medical CenterGlucose emswzrywdnt5455-11-66 15:36:00* Test Item Value Reference Range Interpretation Comments Glucose Level (test code = XIS6417) 120 74-118 [facility] plasma calcium measurement (mass/volume)2020-05-20 15:36:00* Test Item Value Reference Range Interpretation Comments Calcium Level (test code = 48292-2) 9.6 8.4-10.2 [facility] plasma magnesium measurement (mass/volume)2020-05-20 15:36:00* Test Item Value Reference Range Interpretation Comments Magnesium Level (test code = 73107-9) 1.5 1.3-2.1 [facility] plasma total bilirubin measurement (mass/volume)2020-05-20 15:36:00* Test Item Value Reference Range Interpretation Comments Total Bilirubin (test code = 1975-2) 0.5 0.2-1.2 [facility] CenterFluoroscopic procedure less than one hour sbyzoejb6885-14-79 15:36:00* Test Item Value Reference Range Interpretation Comments Aspartate Amino Transf (AST/SGOT) (test code = Aspartate Amino Transf (AST/SGOT)) 15 5-34 [facility] Hospitaler[facility] or plasma alanine aminotransferase measurement (enzymatic activity/volume)2020-05-20 15:36:00* Test Item Value Reference Range Interpretation Comments Alanine Aminotransferase (ALT/SGPT) (test code = 1742-6) 10 0-55 [facility] Hospitaler[facility] or plasma protein measurement (mass/volume)2020-05-20 15:36:00* Test Item Value Reference Range Interpretation Comments Total Protein (test code = 2885-2) 7.6 6.5-8.1 [facility]er[facility] or plasma albumin measurement (mass/volume)2020-05-20 15:36:00* Test Item Value Reference Range Interpretation Comments Albumin (test code = 1751-7) 4.0 3.5-5.0 [facility] CenterPlasma globulin measurement (mass/volume) 2020-05-20 15:36:00* Test Item Value Reference Range Interpretation Comments Globulin (test code = 26783-0) 3.6 2.3-3.5 [facility] Hospitalerum or plasma albumin/globulin mass bauqk7424-87-17 15:36:00* Test Item Value Reference Range Interpretation Comments Albumin/Globulin Ratio (test code = 1759-0) 1.1 0.8-2.0 [facility] Hospitalerum or plasma alkaline phosphatase measurement (enzymatic activity/volume)2020-05-20 15:36:00* Test Item Value Reference Range Interpretation Comments Alkaline Phosphatase (test code = 6768-6) 54 40-150 [facility] CenterCT ABDOMEN/PELVIS N3501-70-76 19:36:00 [facility] [place] [address] Patient Name: NOEMY ARGUETA MR #: [id number] : 1935 Age/Sex: 84/M Req #: [id number] Adm Physician: Ordered by: NIECY ARZOLA MD Rep ort #: [id number] Location: CT Room/B ed: Procedure: [id number] CT/CT ABDOMEN/ PELVIS W Exam Date: 05/12/20 [...] limits set by the Radiation Protocol Co mmittee ([facility]). Dose modulation, iterative reconstruction, and/or weight b [...] 8:04 PM Dictated By: RILEY CERVANTES MD [facility] ctronically Signed By: RILEY CERVANTES MD on 05/12/202003 Transcribed By: KUNAL LEE on 05/12/202003 COPY TO: NIECY ARZOLA MD ABDOMEN-1VIEW (KUB)2020-05-11 18:06:00 [place] [address] Patient Name: NOEMY ARGUETA MR #: [id number] : 1935 Age/Sex: 84/M Req #: [id number] Adm Physician: Ordered by: KLAUDIA ARZOLA MD Report #: [id number] Location: [facility] Room/Bed: Procedure: [id number] DX/ABDOMEN-1VI EW (KUB) Exam Date: 05/11/20 Exam Time: 1722 [...] MD Fluoroscopic procedure less than one hour xrnykquj9094-84-74 19:30:00* Test Item Value Reference Range Interpretation [...] under 564(g) of the ACT.Testing performed by [address] [id number] Regional Medical CenterFluoroscopic procedure less than one hour duration 2020-04-02 19:30:00* Test Item Value Reference Range Interpretation [...] under 564(g) of the ACT.Testing performed by [address] [id number] Regional Medical CenterCHEST SINGLE (PORTABLE)2020-04-02 07:07:[address] [place] [address] Patient Name: NOEMY ARGUETA MR #: [id number] : 1935 Age/Sex: 84/M Req #: [id number] Adm Physician: AG JACOBSEN MD Ordered by: ANITHA POLANCO MD, MD Report #: [id number] Location: [facility]/Bed: [place] [address] Procedure: [id number] DX/CHEST SI NGLE (PORTABLE) Exam Date: 04/02/20 Exam Time: 0510 REPORT STATUS: Signed EXAMINATIO N: CHEST SINGLE [...] MD 7 Transcribed By: APOORVA on 04/02/20707 CO PY TO: ANITHA POLANCO Serum or plasma creatine kinase measurement (enzymatic activity/volume)2020-04-02 07:01:00* Test Item Value Reference Range Interpretation Comments Creatine Kinase (test code = 2157-6) 127 30-200 [facility] Hospitalerum or plasma creatine kinase MB measurement (mass/volume)2020-04-02 07:01:00* Test Item Value Reference Range Interpretation Comments Creatine Kinase MB (test code = 66765-9) 2.00 0-5.0 [facility] CenterTroponin I measurement by highly sensitive enzyme jgkifgffree8942-86-94 07:01:00* Test Item Value Reference Range Interpretation Comments Troponin I (test code = 29375-1) 0.003 0-0.300 [facility] Hospitalerum or plasma creatine kinase measurement (enzymatic activity/volume)2020-04-02 07:01:00* Test Item Value Reference Range Interpretation Comments Creatine Kinase (test code = 2157-6) 127 30-200 [facility] Hospitalerum or plasma creatine kinase MB measurement (mass/volume)2020-04-02 07:01:00* Test Item Value Reference Range Interpretation Comments Creatine Kinase MB (test code = 17377-7) 2.00 0-5.0 [facility] CenterTroponin I measurement by highly sensitive enzyme epozsdvpvvf7328-26-19 07:01:00* Test Item Value Reference Range Interpretation Comments Troponin I (test code = 61305-0) 0.003 0-0.300 [facility] CenterCT BRAIN EW4811-40-76 11:20:00 [place] [address] Patient Name: NOEMY ARGUETA MR #: [id number] : 1935 Age/Sex: 84/M Req #: [id number] Adm Physician: Ordered by: COLLIN BRANNON, ANITHA BRANNON Report #: [id number] Location: [facility] /Bed: Procedure: [id number] CT/CT BRAIN WO Exam Date: 04/01/20 Exam [...] AM D ictated By: HUMBLE GRACIA MD 1126 Transcribed By: APOORVA on 04/01/20 1126 COPY TO: ANITHA POLANCO CHEST SINGLE (PORTABLE)2020-04-01 11:17:00 [place] [address] Patient Name: NOEMY ARGUETA MR #: [id number] : 1935 Age/Sex: 84/M Req #: [id number] Adm Physician: Ordered by: ANITHA POLANCO MD, MD Report #: [id number] Location: ER Room/Bed: Procedure: [id number] DX/CHEST SI NGLE (PORTABLE) Exam Date: 04/01/20 Exam Time: 1025 REPORT STATUS: Signed EXAMINATIO N: CHEST SINGLE (PORTABLE) INDICATION: Y ERMD ORDER [id number] Y COMPARISON: 03/13/2020 FINDINGS: AP view TUBES [...] developing multifocal pneumonia. Signed by: Dr. Kirsty Cdeeño M.D. on 04/01/2020 11:19 AM Dictated By: KIRSTY JARVIS 1119 Transc ribed By: APOORVA on 04/01/20 1119 COPY TO: ANITHA POLANCO Prothrombin time (PT) in platelet poor plasma by coagulation qcwra4707-04-04 10:15:00* Test Item Value Reference Range Interpretation Comments Prothrombin Time (test code = 5902-2) 14.3 11.9-14.5 [facility] CenterINR in Platelet poor plasma by Coagulation fikvt3388-24-31 10:15:00* Test Item Value Reference Range Interpretation Comments Prothromb Time International Ratio (test code = 6301-6) 1.05 Oral Anticoagulant Therapy INR Values:1. Low Intensity Therapy 1.5 - 2.02 . Moderate Intensity Therapy 2.0 - 3.03. High Intensity Therapy(1) 2.5 - 3. 54. High Intensity Therapy(2) 3.0 - 4.05. Panic Value INR > 5.0 [facility] CenterActivated partial thromboplastin time (aPTT) in platelet poor plasma by coagulation spxor4740-38-61 10:15:00* Test Item Value Reference Range Interpretation Comments Activated Partial Thromboplast Time (test code = 83681-0) 30.2 23.8-35.5 [facility] CenterFluoroscopic procedure less than one hour iwildrzw0691-67-88 10:15:00* Test Item Value Reference Range Interpretation Comments Lactic Acid Level (test code = Lactic Acid Level) 1.5 0.5- 2.0 [facility] CenterBNP Xzv-mRfr6765-50-03 10:15:00* Test Item Value Reference Range Interpretation Comments B-Type Natriuretic Peptide (test code = 94849-8) 32.1 0-100 [facility] Hospitalerum or plasma thyrotropin measurement by detection limit <= 0.005 miu/l (units/volume)2020-04-01 10:15:00* Test Item Value Reference Range Interpretation Comments Thyroid Stimulating Hormone (TSH) (test code = 82576-9) 1.327 0.350-4.940 [facility] CenterBlood xzwcgbk5505-70-97 10:15:00* Test Item Value Reference Range Interpretation Comments Blood Culture (test code = 81592868) NO GROWTH AFTER 5 DAYS, FINAL REPORT [facility] CenterProthrombin time (PT) in platelet poor plasma by coagulation mqirz0435-50-62 10:15:00* Test Item Value Reference Range Interpretation Comments Prothrombin Time (test code = 5902-2) 14.3 11.9-14.5 [facility] CenterINR in Platelet poor plasma by Coagulation lprso5281-54-50 10:15:00* Test Item Value Reference Range Interpretation Comments Prothromb Time International Ratio (test code = 6301-6) 1.05 Oral Anticoagulant Therapy INR Values:1. Low Intensity Therapy 1.5 - 2.02 . Moderate Intensity Therapy 2.0 - 3.03. High Intensity Therapy(1) 2.5 - 3. 54. High Intensity Therapy(2) 3.0 - 4.05. Panic Value INR > 5.0 [facility] CenterActivated partial thromboplastin time (aPTT) in platelet poor plasma by coagulation nanjj6709-47-33 10:15:00* Test Item Value Reference Range Interpretation Comments Activated Partial Thromboplast Time (test code = 90659-4) 30.2 23.8-35.5 [facility] CenterFluoroscopic procedure less than one hour rnfvydqq5595-97-99 10:15:00* Test Item Value Reference Range Interpretation Comments Lactic Acid Level (test code = Lactic Acid Level) 1.5 0.5- 2.0 [facility] CenterBNP Jwu-wUpc5567-72-03 10:15:00* Test Item Value Reference Range Interpretation Comments B-Type Natriuretic Peptide (test code = 11421-1) 32.1 0-100 [facility] Hospitalerum or plasma thyrotropin measurement by detection limit <= 0.005 miu/l (units/volume)2020-04-01 10:15:00* Test Item Value Reference Range Interpretation Comments Thyroid Stimulating Hormone (TSH) (test code = 65982-4) 1.327 0.350-4.940 [facility] CenterBlood dsojknx0228-73-58 10:15:00* Test Item Value Reference Range Interpretation Comments Blood Culture (test code = 36046897) NO GROWTH AFTER 5 DAYS, FINAL REPORT [facility] CenterCHEST SINGLE (PORTABLE)2020-03-13 18:24:00 [facility] [address] [place] [address] Patient Name: NOEMY ARGUETA MR #: [id number] : 1935 Age/Sex: 84/M Req #: [id number] Adm Physician: Ordered by: PER AU MD Report #: [id number] Location: ER Room/Bed: Procedure: [id number] DX/CHEST SINGLE (PORTABLE) Exam Date: 03/13/20 Exam Time: 1812 REPORT STATUS: Signed EXAMINATION: CHEST SINGLE (PORTABLE) [...] Interpretation Comments Bedside Glucose (test code = 04197-6) 123 70-120 H Meter ID: [id number] [facility] CampusClumped Platelets 2019-05-15 08:26:00* Test Item Value Reference Range Interpretation Comments Clumped Platelets (test code = 7796-6) NONE NONE [facility] Hospitalodium Kdvay9388-91-16 05:59:00* Test Item Value Reference Range Interpretation Comments Sodium Level (test code = 2951-2) 141 136-145 [facility] CenterPotassium Npham8467-40-42 05:59:00* Test Item Value Reference Range Interpretation Comments Potassium Level (test code = 2823-3) 3.4 3.5-5.1 L [facility] CenterChloride Uqspe0591-49-31 05:59:00* Test Item Value Reference Range Interpretation Comments Chloride Level (test code = 2075-0) 110 98-107 H [facility] CenterCarbon Dioxide Nbnwv9898-63-39 05:59:00* Test Item Value Reference Range Interpretation Comments Carbon Dioxide Level (test code = 2028-9) 23 22-29 [facility] CenterAnion Ddo8199-47-32 05:59:00* Test Item Value Reference Range Interpretation Comments Anion Gap (test code = 55096-8) 11.4 8-16 [facility] CenterBlood Urea Udxocdah7530-68-68 05:59:00* Test Item Value Reference Range Interpretation Comments Blood Urea Nitrogen (test code = 3094-0) 15 7-26 [facility] CenterCreatinine2019-08-16 05:59:00* Test Item Value Reference Range Interpretation Comments Creatinine (test code = 2160-0) 0.96 0.72-1.25 [facility] CenterBUN/Creatinine Quiun6910-74-25 05:59:00* Test Item Value Reference Range Interpretation Comments BUN/Creatinine Ratio (test code = 3097-3) 16 6- [facility] CenterEstimat Glomerular Filtration Rate 2019-05-15 05:59:00* Test Item Value Reference Range Interpretation Comments Estimat Glomerular Filtration Rate (test code = 067798064) > 60 >60 Ranges were taken from the National Kidney Disease Education Program and the [facility] Kid[facility] Foundation literature.Reference ranges:60 or greater: Enguqx36-91 ( for 3 consecutive months): Chronic kidney disease 15 or less: Kidney failureHereford Regional Medical CenterGlucose Tlhcb5432-39-12 05:59:00* Test Item Value Reference Range Interpretation Comments Glucose Level (test code = PTY9710) 122 74-118 H [facility] CenterCalcium Msxkr8210-76-34 05:59:00* Test Item Value Reference Range Interpretation Comments Calcium Level (test code = 86825-4) 7.6 8.4-10.2 L [facility] CenterTotal Mxruahacg2279-62-32 05:59:00* Test Item Value Reference Range Interpretation Comments Total Bilirubin (test code = 1975-2) 0.3 0.2-1.2 [facility] CenterAspartate Amino Transf (AST/SGOT) 2019-05-15 05:59:00* Test Item Value Reference Range Interpretation Comments Aspartate Amino Transf (AST/SGOT) (test code = Aspartate Amino Transf (AST/SGOT)) 15 5-34 [facility] CenterAlanine Aminotransferase (ALT/SGPT) 2019-05-15 05:59:00* Test Item Value Reference Range Interpretation Comments Alanine Aminotransferase (ALT/SGPT) (test code = 1742-6) 6 0-55 [facility] CenterTotal Kfyxpac0535-30-29 05:59:00* Test Item Value Reference Range Interpretation Comments Total Protein (test code = 2885-2) 4.8 6.5-8.1 L [facility] CenterAlbumin2019-08-16 05:59:00* Test Item Value Reference Range Interpretation Comments Albumin (test code = 1751-7) 2.1 3.5-5.0 L [facility] CenterGlobulin2019-08-16 05:59:00* Test Item Value Reference Range Interpretation Comments Globulin (test code = 21595-9) 2.7 2.3-3.5 [facility] CenterAlbumin/Globulin Gjwzk4894-08-73 05:59:00 * Test Item Value Reference Range Interpretation Comments Albumin/Globulin Ratio (test code = 1759-0) 0.8 0.8-2.0 [facility] CenterAlkaline Oujullotpuj1960-39-19 05:59:00* Test Item Value Reference Range Interpretation Comments Alkaline Phosphatase (test code = 6768-6) 56 40-150 [facility] CenterWhite Blood Tykit5339-24-17 05:58:00* Test Item Value Reference Range Interpretation Comments White Blood Count (test code = 6690-2) 7.18 4.8-10.8 [facility] CenterRed Blood Ktkeb2278-97-91 05:58:00* Test Item Value Reference Range Interpretation Comments Red Blood Count (test code = 789-8) 3.55 4.3-5.7 L [facility] CenterHemoglobin2019-08-16 05:58:00* Test Item Value Reference Range Interpretation Comments Hemoglobin (test code = 63073-8) 10.7 14.0-18.0 L [facility] CenterHematocrit2019-08-16 05:58:00* Test Item Value Reference Range Interpretation Comments Hematocrit (test code = 4544-3) 32.4 38.2-49.6 L [facility] CenterMean Corpuscular Hphemj8825-68-86 05:58:00* Test Item Value Reference Range Interpretation Comments Mean Corpuscular Volume (test code = 787-2) 91.3 81-99 [facility] CenterMean Corpuscular Qyxmujcezh6518-42-09 05:58:00* Test Item Value Reference Range Interpretation Comments Mean Corpuscular Hemoglobin (test code = 785-6) 30.1 28-32 [facility] Corp[facility] Hemoglobin Concent 2019-05-15 05:58:00* Test Item Value Reference Range Interpretation Comments Mean Corpuscular Hemoglobin Concent (test code = 786-4) 33.0 31-35 [facility] CenterRed Cell Distribution Idzmj8007-84-34 05:58:00* Test Item Value Reference Range Interpretation Comments Red Cell Distribution Width (test code = 90927-4) 13.7 11.7 -14.4 [facility] CenterPlatelet Bwlda4425-42-01 05:58:00* Test Item Value Reference Range Interpretation Comments Platelet Count (test code = 777-3) 134 140-360 L [facility] CenterNeutrophils (%) (Auto)2019-05-15 05:58:00 * Test Item Value Reference Range Interpretation Comments Neutrophils (%) (Auto) (test code = 53515-7) 68.2 38.7-80.0 [facility] CenterLymphocytes (%) (Auto)2019-05-15 05:58:00 * Test Item Value Reference Range Interpretation Comments Lymphocytes (%) (Auto) (test code = 736-9) 19.8 18.0-39.1 [facility] CenterMonocytes (%) (Auto)2019-05-15 05:58:00* Test Item Value Reference Range Interpretation Comments Monocytes (%) (Auto) (test code = 5905-5) 9.9 4.4-11.3 [facility] CenterEosinophils (%) (Auto)2019-05-15 05:58:00 * Test Item Value Reference Range Interpretation Comments Eosinophils (%) (Auto) (test code = 713-8) 1.3 0.0-6.0 [facility] CenterBasophils (%) (Auto)2019-05-15 05:58:00* Test Item Value Reference Range Interpretation Comments Basophils (%) (Auto) (test code = 706-2) 0.4 0.0-1.0 [facility] CenterIM GRANULOCYTES %2019-05-15 05:58:00* Test Item Value Reference Range Interpretation Comments IM GRANULOCYTES % (test code = IM GRANULOCYTES %) 0.4 0.0- 1.0 [facility] CenterNeutrophils # (Auto)2019-05-15 05:58:00* Test Item Value Reference Range Interpretation Comments Neutrophils # (Auto) (test code = 751-8) 4.9 2.1-6.9 [facility] CenterLymphocytes # (Auto)2019-05-15 05:58:00* Test Item Value Reference Range Interpretation Comments Lymphocytes # (Auto) (test code = 99745-1) 1.4 1.0-3.2 [facility] CenterMonocytes # (Auto)2019-05-15 05:58:00* Test Item Value Reference Range Interpretation Comments Monocytes # (Auto) (test code = 742-7) 0.7 0.2-0.8 [facility] CenterEosinophils # (Auto)2019-05-15 05:58:00* Test Item Value Reference Range Interpretation Comments Eosinophils # (Auto) (test code = 711-2) 0.1 0.0-0.4 [facility] CenterBasophils # (Auto)2019-05-15 05:58:00* Test Item Value Reference Range Interpretation Comments Basophils # (Auto) (test code = 704-7) 0.0 0.0-0.1 [facility] CenterAbsolute Immature Granulocyte (auto 2019-05-15 05:58:00* Test Item Value Reference Range Interpretation Comments Absolute Immature Granulocyte (auto (faye t code = Absolute Immature Granulocyte (auto) 0.03 0-0.1 [facility] CenterBlood Ymzoydz5254-23-34 23:56:00* Test Item Value Reference Range Interpretation Comments Blood Culture (test code = 10478255) NO GROWTH AFTER 24 HOURS [facility] CenterHIPS BILAT TWO VWS(+/- PELVIS)2019-05-14 17:32:00 [place] [address] Patient Name: NOEMY ARGUETA MR #: [id number] : 1935 Age/Sex: 83/M Req #: [id number] [facility] Physician: HAZEL SHAW MD Ordered by: HAZEL SHAW MD Report #: [id number] [facility] Room/Bed: [facility] Procedure: [id number] D X/HIPS BILAT TWO VWS(+/- PELVIS) Exam [...] COPY TO: HAZEL SHAW MD Creatine Kinase HV0842-50-27 09:00:00* Test Item Value Reference Range Interpretation Comments Creatine Kinase MB (test code = 91569-9) 5.60 0-5.0 H [facility] CenterTroponin Y9507-61-26 09:00:00* Test Item Value Reference Range Interpretation Comments Troponin I (test code = IIL9321) 0.015 0-0.300 [facility] CenterCreatine Ynlybd6171-49-23 08:35:00* Test Item Value Reference Range Interpretation Comments Creatine Kinase (test code = 2157-6) 257 30-200 H [facility] CenterUrine DPB8364-13-37 03:56:00* Test Item Value Reference Range Interpretation Comments Urine WBC (test code = 5821-4) 0-5 0-5 [facility] CenterUrine NRJ2695-35-71 03:56:00* Test Item Value Reference Range Interpretation Comments Urine RBC (test code = 16410-5) 0-5 0-5 [facility] CenterUrine Anvheemd4845-64-11 03:56:00* Test Item Value Reference Range Interpretation Comments Urine Bacteria (test code = 22882-4) RARE NONE [facility] CenterUrine Epithelial Skyhu7592-89-18 03:56:00 * Test Item Value Reference Range Interpretation Comments Urine Epithelial Cells (test code = 99807-9) FEW NONE [facility] CenterUrine Zqajn1921-30-84 03:50:00* Test Item Value Reference Range Interpretation Comments Urine Color (test code = 5778-6) YELLOW YELLOW [facility] CenterUrine Chwpdul9356-90-54 03:50:00* Test Item Value Reference Range Interpretation Comments Urine Clarity (test code = 03967-3) CLEAR CLEAR [facility] Specific Mzrhryv8438-78-80 03:50:00 * Test Item Value Reference Range Interpretation Comments Urine Specific [facility] (test code = 5811-5) <=1.005 1.010-1.02 5 [facility] CenterUrine kP6163-54-15 03:50:00* Test Item Value Reference Range Interpretation Comments Urine pH (test code = 85361-5) 6 5-7 [facility] CenterUrine Leukocyte Ftcxfghz4562-60-55 03:50:00* Test Item Value Reference Range Interpretation Comments Urine Leukocyte Esterase (test code = 72519-8) NEGATIVE NEGATIV E [facility] Bsfnvlp3039-54-59 03:50:00* Test Item Value Reference Range Interpretation Comments Urine Nitrite (test code = 20616-1) NEGATIVE NEGATIVE [facility] Dtqvtga1970-49-20 03:50:00* Test Item Value Reference Range Interpretation Comments Urine Protein (test code = 45181-5) NEGATIVE NEGATIVE [facility] Glucose (UA)2019-05-14 03:50:00* Test Item Value Reference Range Interpretation Comments Urine Glucose (UA) (test code = 47736-8) NEGATIVE NEGATIVE [facility] Jxjcchn6810-77-76 03:50:00* Test Item Value Reference Range Interpretation Comments Urine Ketones (test code = 36270-6) NEGATIVE NEGATIVE [facility] Omluntmcqgpf8092-87-76 03:50:00* Test Item Value Reference Range Interpretation Comments Urine Urobilinogen (test code = 21656-4) 0.2 0.2-1 [facility] Bjivnqnkp8909-09-79 03:50:00* Test Item Value Reference Range Interpretation Comments Urine Bilirubin (test code = 1977-8) NEGATIVE NEGATIVE [facility] Llngq9829-98-12 03:50:00* Test Item Value Reference Range Interpretation Comments Urine Blood (test code = 87633-9) NEGATIVE NEGATIVE [facility] CenterUrine Opiates Joicnl0579-90-25 03:49:00* Test Item Value Reference Range Interpretation Comments Urine Opiates Screen (test code = 36562-4) POSITIVE NEGATIVE H ALL TESTS PERFORMED MANUALLY ON [employer] TOX/SEE TEST This test provides only a sc reen. Positive results should be repeated by a confirmatory test.[facility] Barbiturates [id number] 03:49:00* Test Item Value Reference Range Interpretation Comments Urine Barbiturates Screen (test code = 487219322) NEGATIVE NEGA TIVE [facility] Phencyclidine [id number] 03:49:00* Test Item Value Reference Range Interpretation Comments Urine Phencyclidine Screen (test code = 15924-3) NEGATIVE NEGAT VALENTINE [facility] Amphetamines [id number] 03:49:00* Test Item Value Reference Range Interpretation Comments Urine Amphetamines Screen (test code = 79639-7) NEGATIVE NEGATI VE [facility] Methamphetamines [id number] 03:49:00* Test Item Value Reference Range Interpretation Comments Urine Methamphetamines Screen (test code = Urine Metha mphetamines Screen) NEGATIVE NEGATIVE [facility] Benzodiazepines [id number] 03:49:00* Test Item Value Reference Range Interpretation Comments Urine Benzodiazepines Screen (test code = 92438-4) POSITIVE NEG ATIVE H This test provides only a screen. Positive results should be repeated by a confi rmatory test.[facility] Cocaine Screen 2019-05-14 03:49:00* Test Item Value Reference Range Interpretation Comments Urine Cocaine Screen (test code = 3398-5) NEGATIVE NEGATIVE [facility] Cannabinoids [id number] 03:49:00* Test Item Value Reference Range Interpretation Comments Urine Cannabinoids Screen (test code = 42382-8) NEGATIVE NEGATI VE THESE RESULTS ARE FOR MEDICAL TREATMENT ONLYTHIS REPORT CONTAINS UNCONFIR MED SCREENING RESULTS*POSITIVE RESULTS WILL BE CONFIRMED BY REFERENCE LAB UPON R EQUEST CUT-OFFDRUG CLASS CONCENTRATION ng/mLAmphetamines 1000Methamphetamines 1000Cocaine 300Opiate 300Phencyc lidine 25Cannabinoid 50Barbiturates 300Benzodiazepine 300Methadone 300[facility] Meth[facility] [id number] 03:49:00* Test Item Value Reference Range Interpretation Comments Urine Methadone Screen (test code = 06791-1) NEGATIVE NEGATIVE THESE RESULTS ARE FOR MEDICAL TREATMENT ONLYTHIS REPORT CONTAINS UNCONFIR MED SCREENING RESULTS*POSITIVE RESULTS WILL BE CONFIRMED BY REFERENCE LAB UPON R EQUEST CUT-OFFDRUG CLASS CONCENTRATION ng/mLAmphetamines 1000Methamphetamines 1000Cocaine Metabolite 300Opiate 300Phencyc lidine 25Cannabinoid 50Barbiturates 300Benzodiazepine 300Methadone 300[facility] C[facility] SPINE [id number] 00:55:00 [facility] [address] [address] Patient Name: NOEMY ARGUETA MR #: [id number] : 1935 Age/Sex: 83/M Req #: [id number] Adm Physician: Ordered by: CINDY BURROWS MD Report #: [id number] Location: ER Room/Bed: Procedure: 43 CT/CT CERVICAL SPINE WO Exam Date: 05/13/19 Exam Time: 2359 REPORT STATUS: Signed History: Fall. Comparison studies: [...] on 05/14/1999 COPY TO: CINDY BURROWS MD [facility] (PORTABLE) 2019-05-14 00:53:00 [place] [address] Patient Name: NOEMY ARGUETA MR #: [id number] : 1935 Age/Sex: 83/M Req #: [id number] Adm Physician: Ordered by: CINDY BURROWS MD Report #: [id number] Location: ER Room/Bed: Procedure: 60 DX/CHEST SINGLE [...] COPY TO: CINDY BURROWS MD CT BRAIN [id number] 00:47:00 [place] [address] Patient Name: NOEMY ARGUETA MR #: [id number] : 1935 Age/Sex: 83/M Req #: [id number] Adm Physician: Ordered by: CINDY BURROWS MD Report #: [id number] Location: ER Room/Bed: Procedure: [address]/CT BRAIN WO Exam Date: Exam [...] 54 AM Dictated By: JOCELYN MOURA MD 0054 Transcribed By: APOORVA on 05/14/19 0054 COPY TO: CINDY BURROWS MD Lactic Acid [id number] 00:36:00* Test Item Value Reference Range Interpretation Comments Lactic Acid Level (test code = Lactic Acid Level) 18.7 4.5- 19.8 [facility] 2 [id number] 17:12:00 [facility] [address] [address] Patient Name: NOEMY ARGUETA MR #: [id number] : 1935 Age/Sex: 83/M Req #: [id number] Adm Physician: Ordered by: ELMIRA HUGHES MD Report #: [id number] Location: OR Room/Bed: Procedure: DX/CH EST 2 VIEWS Exam Date: 03/11/19 [...] on 03/11/191718 COPY TO: ELMIRA HUGHES MD [id number] 17:11:00* Test Item Value Reference Range Interpretation Comments GLUBED (test code = GLUBED) 98 mg/dL 74-106 N [facility] [id number] 12:12:00* Test Item Value Reference Range Interpretation Comments GLUBED (test code = GLUBED) 163 mg/dL 74-106 H Performed by certified test engine operator [facility]~ [id number] 08:00:00* Test Item Value Reference Range Interpretation Comments GLUBED (test code = GLUBED) 90 mg/dL 74-106 N Performed by certified test engine operator [facility] BASIC METABOLIC [id number] 05:35:00* Test Item Value Reference Range Interpretation [...] CK) 2348 IUnit/L 26-208 H BASIC METABOLIC [id number] 05:16:00* Test Item Value Reference Range Interpretation [...] (CK) (test code = CK) IUnit/L 26-208 [id number] 20:59:00* Test Item Value Reference Range Interpretation Comments GLUBED (test code = GLUBED) 125 mg/dL 74-106 H Performed by certified test engine operator [facility]~ [id number] 16:45:00* Test Item Value Reference Range Interpretation Comments GLUBED (test code = GLUBED) 107 mg/dL 74-106 H Performed by certified test engine operator [facility]~ URINALYSIS [id number] 13:53:00* Test Item Value Reference Range Interpretation [...] FEW #/HPF NONE Urine Source? Clean CatchURINALYSIS [id number] 13:49:00* Test Item Value Reference Range Interpretation [...] BACU) per HPF NONE Urine Source? Clean [id number] 12:47:00* Test Item Value Reference Range Interpretation Comments GLUBED (test code = GLUBED) 114 mg/dL 74-106 H Performed by certified test engine operator [facility]~ [id number] 08:17:00* Test Item Value Reference Range Interpretation Comments GLUBED (test code = GLUBED) 96 mg/dL 74-106 N Performed by certified test engine operator [facility] BASIC METABOLIC [id number] 08:12:00* Test Item Value Reference Range Interpretation [...] CK) 5208 IUnit/L 26-208 H BASIC METABOLIC [id number] 07:39:00* Test Item Value Reference Range Interpretation [...] (CK) (test code = CK) IUnit/L 26-208 [id number] 21:50:00* Test Item Value Reference Range Interpretation Comments GLUBED (test code = GLUBED) 117 mg/dL 74-106 H Performed by certified test engine operator at [facility] - CT L-SPINE W/O [id number] 19:37:00 Name: NOEMY ARGUETA [facility] : 1935 Age/S: 83 / M [address] [facility] Unit #: [id number] Loc: [place] [address] Phys: Shannon Corey MD Acct: [id number] Dis Date: Status: ADM IN PHONE #: [phone] Exam Date: 01/21/2019 191 FAX #: [phone] Reason: H/o fall EXAMS: CPT CODE: [id number] CT L-SPINE W/O CONTRAST 93358 REASON FOR EXAM: H/o fall EXAM ORDER [...] CT CTDI: DLP: Trnscb Date/Time: 01/21/2019 (1936) LonaR.VTL Orig Print D/T: S: 01/21/2019 (1940) CTDI: DLP: PAGE 1 Signed Report - CT T-SPINE W/O CONTRAST 2019-01-21 19:35:00 Name: NOEMY ARGUETA [facility] : 1935 Age/S: 83 / M [address] [facility] Unit #: [id number] Loc: [place] [address] Phys: Shannon Corey MD Acct: [id number] Dis Date: Status: ADM IN PHONE #: [phone] Exam Date: 01/21/20191918 FAX #: [phone] Reason: H/o fall EXAMS: CPT CODE: [id number] CT T-SPINE W/O CONTRAST 51575 REASON FOR EXAM: H/o fall EXAM ORDER DATE: 01/21/2019 1:48 PM Ordering MEladio.: Shannon Corey MD PROCEDURE: - CT T-SPINE [...] and signed by: Fernando Davis M.D. CC: Daivd Porter MD; Shannon Corey MD; Colleen Shaw MD Technologist:JENNIFER FERNANDEZ, RT(R) CT CTDI: DLP: Trnscb Date/Time: 01/21/2019 (1935) tChazSDR.VTL Orig Print D/T: S: 01/21/2019 (1937) CTDI: DLP: PAGE 1 Signed Report - CT C-SPINE W/O CONTRAST 2019-01-21 19:34:00 Name: NOEMY ARGUETA [facility] : 1935 Age/S: 83 / M [facility] Unit #: [id number] Loc: [place] [address] Phys: Shannon Corey MD Acct: [id number] Dis Date: Status: ADM IN PHONE #: [phone] Exam Date: 01/21/20191918 FAX #: [phone] Reason: H/o fall EXAMS: CPT CODE: [id number] CT C-SPINE W/O CONTRAST 06746 REASON FOR EXAM: H/o fall EXAM ORDER DATE: 01/21/2019 1:48 PM Ordering M.Alix: Shannon Corey MD PROCEDURE: - CT C-SPINE [...] CT CTDI: DLP: Trnscb Date/Time: 01/21/2019 (1934) Jimmie Orig Print D/T: S: 01/21/2019 (1936) CTDI: DLP: PAGE 1 Signed Report [id number] 15:53:00* Test Item Value Reference Range Interpretation Comments GLUBED (test code = GLUBED) 120 mg/dL 74-106 H Performed by certified test engine operator at [facility] - XR RIBS UNI W/CXR 3+V [id number] 12:17:00 FAX: Obey De Souza MD [phone] [place]: St: ADM FAX: Y David Porter MD [phone] Name: NOEMY ARGUETA [facility] : 1935 Age/S: 83/M [address] [facility] Unit #: [id number] Loc: [address] [address] Phys: Obey De Souza MD Acct: [id number] Dis Date: Status: ADM IN PHONE #: [phone] Exam Date: 01/20/2019 2255 FAX #: [phone] Reason: rib pain, fall EXAMS: CPT CODE: [id number] XR RIBS UNI W/CXR 3+[place] [address] HISTORY: Pain after fall. COMPARISON: Chest x-ray [...] Trnscrd Date/Time/By: 01/21/2019 (09 15) : By: [email or web address].TH4 Orig Print D/T: S: 01/22/2019 (4071) PAGE 1 Signed Report [id number] 12:13:00* Test Item Value Reference Range Interpretation Comments GLUBED (test code = GLUBED) 114 mg/dL 74-106 H Performed by certified test engine operator at [facility] - CT HEAD/BRAIN W/O [id number] 12:02:00 Name: NOEMY ARGUETA [facility] : 1935 Age/S: 83 / M [address] [facility] Unit #: [id number] Loc: [place] [address] Phys: Obey De Souza MD Acct: [id number] Dis Date: Status: ADM IN PHONE #: [phone] Exam Date: 01/20/2019 2300 FAX #: [phone] Reason: fall/AMS EXAMS: CPT CODE: [id number] CT HEAD/BRAIN W/O CONT 13502 HISTORY: Confusion. COMPARISON: None available. CT brain [...] CT CTDI: DLP: Trnscb Date/Time: 01/21/2019 (1202) DemetriusTH4 Orig Print D/T: S: 01/21/2019 (9051) CTDI: DLP: PAGE 1 Signed Report [id number] 07:52:00* Test Item Value Reference Range Interpretation Comments GLUBED (test code = GLUBED) 100 mg/dL 74-106 N Performed by certified test engine operator at [facility] BASIC METABOLIC [id number] 23:39:00* Test Item Value Reference Range Interpretation [...] CK) 7841 IUnit/L 26-208 H BASIC METABOLIC [id number] 23:09:00* Test Item Value Reference Range Interpretation [...] code = CK) IUnit/L 26-208 BASIC METABOLIC [id number] 23:02:00* Test Item Value Reference Range Interpretation [...] code = CK) IUnit/L 26-208 CBC W/AUTO [id number] 22:47:00* Test Item Value Reference Range Interpretation [...] (test code = MDIFF) NO CBC W/AUTO [id number] 22:39:00* Test Item Value Reference Range Interpretation [...] BA#) K/mm3 0.0-0.2 XR RIBS UNILATERAL/ PA [id number] 14:04:37Procedures: XR RIBS UNILATERAL/ PA CHESTExam Date: [...] By: AG WATSONDate: 02/23/2018 14:04MRI BRAIN WO [place] [address] Patient Name: NOEMY ARGUETA MR #: [id number] : 1935 Age/Sex: 82/M Req #: [id number] Adm Physician: KLAUDIA ARZOLA MD Ordered by: CARISSA ROSAS MD Report #: [id number] Location: [facility] Room/Bed: [place] [address] Procedure: [id number] MRI /MRI BRAIN WO Exam Date: 06/28/17 [...] TO: CARISSA ROSAS MD CHEST SINGLE (PORTABLE) [place] [address] Patient Name: NOEMY ARGUETA MR #: [id number] : 1935 Age/Sex: 82/M Req #: [id number] Adm Physician: Ordered by: ABEL DE LEÓN Report #: [id number] Location: ER Room/Bed: Procedure: 3729-0324 DX/CHEST SINGLE (PORTABLE) Ex am Date: 06/28/17 [...] TO: ABEL DE LEÓN CT BRAIN WO [place] [address] Patient Name: NOEMY ARGUETA MR #: [id number] : 1935 Age/Sex: 82/M Req #: [id number] Adm Physician: Ordered by: ABEL DE LEÓN Report #: [id number] Location: ER Room/Bed: Procedure: 0373-1205 CT/CT BRAIN WO Exam Date: Exam Time: [...] TO: SALTY DE LEÓN CT BRAIN WO [place] [address] Patient Name: NOEMY ARGUETA MR #: [id number] : 1935 Age/Sex: 82/M Req #: [id number] Adm Physician: Ordered by: MELANIE PRAKASH MD Report #: [id number] Location: ER Room/Bed: Procedure: 5200-6694 CT/CT BRAIN WO Exam Date: Exam Time: [...]
[2020-06-08] MEDS ORDERED: SODIUM CHLORIDE 0.9% 1000ML 1,000 ML ONE (18:34)
--- NOTE | 2020-06-08 18:55 | Emergency Department Note ---
History of Present Illnes History of Present Illness Chief Complaint: Abdominal Complaints History of Present Illness This is a 84 year old male, with a history of paroxysmal A. fib, GERD, esophageal stricture, prostate cancer, osteoarthritis, peripheral neuropathy, and restless leg syndrome, who was sent from Dr. Donny Valentine (GI) office due to persistent nausea, weight loss, and generalized weakness. Patient states that he has had intermittent nausea for the past 1-2 years, and it seems to be worsening. He has Zofran and Phenergan, which he has been taking at home, without relief of his symptoms. Patient states that he awakens with the nausea, and it is persistent throughout the day. He denies any abdominal pain, vomiting, cough, upper respiratory symptoms, fever, chills, dysuria, frequency, urgency, or change in bowel habits. He denies any melena or hematochezia. Patient has a history of chronic constipation, for which he was recently started on Linzess. Patient states that he cannot take the Linzess, due to the fact that it causes him to have diarrhea. Patient recalls that his last EGD was approximately 3 years ago, when he was treated for an esophageal stricture. He also states that he has lost approximately 30 pounds, in the past 3-4 months, due to the nausea. Patient is now using a walker, due to the weakness. Patient had an outpatient CT of the abdomen and pelvis on 05/20/2020, which showed "moderate burden of semisolid stool throughout the large bowel. No evidence of bowel obstruction, 7mm hyperattenuating cortical lesion in the lower pole of the right kidney, concerning for possible renal cell carcinoma. Stable left intrarenal calculi and mild bladder wall thickening, possibly the result of outlet obstruction from prostatic hypertrophy." A CT scan with renal mass protocol was recommended, but does not appear to have been performed, yet. 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 Arrival Mode: Car Padded Products Inspector Trimmer Required: No Onset (how long ago): year(s) (1-2) Location: stomach Quality: nausea Radiation: Denies non-radiation (denies abdominal pain) Severity: severe Onset quality: gradual Duration (how long): month(s) ("many months," worse over the past few weeks.) Timing of current episode: constant Progression: worsening Chronicity: chronic Context: Reports new medications (started Linzess for IBS with constipation, but hasn't taken today, because it causes him to have diarrhea.); Denies recent illness, Denies recent surgery, Denies trauma/injury Relieving factors: none Exacerbating factors: none Associated symptoms: Reports malaise, Reports nausea/vomiting (without vomiting), Reports weakness (generalized); Denies chest pain, Denies cough, Denies fever/chills, Denies shortness of breath Treatments prior to arrival: other (Zofran and phenergan) Risk factors: elderly, chronic pain medication (Tylenol #3) Past Medical/Family History Physician Review I have reviewed the patient's past medical and family history. Any updates have been documented here. Past Medical History Recent Fever: No Clinical Suspicion of Infectio: No New/Unexplained Change in Ment: No Past Medical History: A-Fib, Cancer (Prostated), GERD Other Medical History: VERTIGO ABNORMAL HEART RATE RLS ARTHRITIS NEUROPHATY Past Surgical History: Cholecysctectomy, Knee Replacement Other Surgery: LEFT KNEE REPLACEMENT HERNIA REPAIR PILONIDAL CYST REMOVAL ESOPHAGIAL STRETCHING Social History Smoking Cessation: Never Smoker Alcohol Use: None Any Illegal Drug Use: No TB Exposure/Symptoms: No Physically hurt or threatened: No Family History Family history of heart diseas: No Other Last Tetanus: UTD Any Pre-Existing Lines (PICC,: No Is patient up to date on immun: Yes Review of Systems Review of Systems Constitutional: Reports malaise, Reports weakness; Denies chills, Denies fever EENTM: Reports no symptoms Cardiovascular: Denies chest pain, Denies palpitations Respiratory: Denies cough, Denies dyspnea Gastrointestinal: Reports constipation, Reports nausea; Denies abdominal pain, Denies diarrhea, Denies vomiting Genitourinary: Denies no symptoms Musculoskeletal: Denies no symptoms Integumentary: Denies change in color, Denies rash Neurological: Denies headache, Denies weakness Psychological: Reports no symptoms Hematological/Lymphatic: Reports no symptoms Review of other systems: All other systems negative Physical Exam Related Data Allergies: Coded Allergies: latex (Verified Allergy, Unknown, RASH, 06/28/17) Triage Vital Signs Vital Signs Date Time Temp Pulse Resp B/P (MAP) Pulse Ox O2 Delivery O2 Flow Rate FiO2 06/08/20 17:30 98.9 77 18 150/95 97 Room Air Vital signs reviewed: Yes Physical Exam CONSTITUTIONAL Constitutional: Present well-developed, Present well-nourished, Present ill vivien earing; Absent distressed HENT HENT: Present normocephalic, Present atraumatic, Present oropharynx clear/moist, Present nose normal HENT L/R: Present left ext ear normal, Present right ext ear normal EYES Eyes: Reports PERRL, Reports conjunctivae normal NECK Neck: Present ROM normal PULMONARY Pulmonary: Present effort normal, Present breath sounds normal CARDIOVASCULAR Cardiovascular: Present regular rhythm, Present heart sounds normal, Present capillary refill normal, Present normal rate GASTROINTESTINAL Abdominal: Present soft, Present nontender, Present bowel sounds normal; Absent tender, Absent guarding GENITOURINARY Genitourinary: Present exam deferred SKIN Skin: Present warm, Present dry; Absent rash MUSCULOSKELETAL Musculoskeletal: Present ROM normal; Absent tenderness NEUROLOGICAL Neurological: Present alert, Present oriented x 3, Present no gross motor or sensory deficits PSYCHOLOGICAL Psychological: Present mood/affect normal, Present judgement normal Results Laboratory Laboratory Laboratory Tests Test 06/08/20 18:05 White Blood Count 8.08 x10e3/uL (4.8-10.8) Red Blood Count 4.47 x10e6/uL (4.3-5.7) Hemoglobin 13.4 g/dL (14.0-18.0) Hematocrit 40.1 % (38.2-49.6) Mean Corpuscular Volume 89.7 fL (81-99) Mean Corpuscular Hemoglobin 30.0 pg (28-32) Mean Corpuscular Hemoglobin Concent 33.4 g/dL (31-35) Red Cell Distribution Width 13.4 % (11.7-14.4) Platelet Count 167 x10e3/uL (140-360) Neutrophils (%) (Auto) 69.9 % (38.7-80.0) Lymphocytes (%) (Auto) 19.7 % (18.0-39.1) Monocytes (%) (Auto) 9.0 % (4.4-11.3) Eosinophils (%) (Auto) 0.4 % (0.0-6.0) Basophils (%) (Auto) 0.6 % (0.0-1.0) Neutrophils # (Auto) 5.7 (2.1-6.9) Lymphocytes # (Auto) 1.6 (1.0-3.2) Monocytes # (Auto) 0.7 (0.2-0.8) Eosinophils # (Auto) 0.0 (0.0-0.4) Basophils # (Auto) 0.1 (0.0-0.1) Absolute Immature Granulocyte (auto 0.03 x10e3/uL (0-0.1) Laboratory Tests Test 06/08/20 18:05 Lab results reviewed: Yes Laboratory comments CMP - Normal Cardiacs - nl except for raiza = 116; UA - nl except for trace blood; Imaging Imaging results reviewed: Yes Impressions [place] [address] Patient Name: NOEMY ARGUETA MR #: [id number] : 1935 Age/Sex: 84/M Req #: [id number] Adm Physician: Ordered by: RACQUEL DELGADO MD Report #: [id number] Location: [facility] Room/Bed: Procedure: [id number] HOPD/CXR 2 VIEW - HOPD Exam Date: 06/08/20 Exam Time: 1838 REPORT STATUS: Signed EXAMINATION: CXR 2 VIEW - HOPD INDICATION: Nausea. COMPARISON: Chest x-ray on 04/10/2017. FINDINGS: TUBES and LINES: None. LUNGS: Normal lung volumes. Lungs are clear. No consolidations. Bibasilar atelectasis. PLEURA: No pleural effusion or pneumothorax. HEART AND MEDIASTINUM: The cardiomediastinal silhouette is unremarkable. There is atherosclerotic calcification of the thoracic aortic arch. BONES AND SOFT TISSUES: No acute osseous lesion. Multiple healed right rib fractures are unchanged. Soft tissues are unremarkable. UPPER ABDOMEN: No free air under the diaphragm. IMPRESSION: No acute thoracic radiographic abnormality. Signed by: Timothy Cervantes MD on 06/08/2020 7:09 PM Dictated By: TIMOTHY CERVANTES MD 08 Transcribed By: APOORVA on 06/08/201908 COPY TO: RACQUEL DELGADO MD~ Procedures 12 Lead ECG Interpretation ECG Interpretation : ECG: ECG 1 Padded Products Inspector Trimmer: Interpreted by ED physician Date: Jun 08, 2020 Time: 17:34 Prior ECG tracings: reviewed Rhythm: sinus rhythm Rate: normal BPM: 86 QRS axis: normal ST segments normal: Yes T waves normal: Yes Other findings: no other findings Clinical Impression: normal ECG Assessment & Plan Medical Decision Making MDM - Nausea greatly improved after dose of IV Reglan in the ED, and received IVF. - Asked for number to page Dr. Donny Valentine, and was inadvertently given the number to Kinsey Valentine, who was not circulation analyst. Contacted the answering service 3 times and ask that they page Donny Valentine, but they were apparently paging Kinsey Valentine. Case discussed with Dr. Benigno Valentine at 21:39, who was agreeable to admission, and to consult Dr. Hector Valentine. - At some point, patient needs f/u on the "Right Renal Mass," that was seen on CT scan of abd/pelvis on 05/12/20 and 05/19/20. - Pt chronically takes narcotics, for neuropathy. - Pt is agreeable to admission, for further evaluation of his symptoms. Assessment & Plan Final Impression: (1) Nausea (2) Generalized weakness (3) Weight loss (4) Renal mass, right Depart Disposition: ADMITTED Last Vital Signs Date Time Temp Pulse Resp B/P (MAP) Pulse Ox O2 Delivery O2 Flow Rate FiO2 06/08/20 17:30 98.9 77 18 150/95 97 Room Air Home Meds Reported Medications [Smz/Tmp] No Conflict Check 04/02/20 [Ondansetron] No Conflict Check 04/02/20 Chlordiazepoxide Hcl (CHLORDIAZEPOXIDE HCL) 10 Mg Capsule 04/02/20 Acetaminophen With Codeine (ACETAMINOPHEN-CODEINE ELIXIR) 118 Ml Elixir 04/02/20 Spironolactone (SPIRONOLACTONE) 25 Mg Tablet 04/02/20 Gabapentin (GABAPENTIN) 600 Mg Tablet 04/02/20 Azithromycin (Z-SHERRON) 250 Mg Tablet, 250 MG PO UD, #1 UDPKT Z-Pack 05/15/19 Pantoprazole Sodium* (PROTONIX) 40 Mg Tablet.dr, 40 MG PO DAILY 05/14/19 Atenolol (ATENOLOL) 50 Mg Tablet, 50 MG PO DAILY 05/09/17 Medications in the ED Sodium Chloride 250 ml @ 0 mls/hr ONCE ONCE IV ; Start 06/08/20 at 18:30; Stop 06/08/20 at 18:31 RACQUEL DELGADO MD Jun 08, 2020 18:55
--- NOTE | 2020-06-08 19:13 | Diagnostic Imaging Report ---
EXAMINATION: CXR 2 VIEW - HOPD INDICATION: Nausea. COMPARISON: Chest x-ray on 04/10/2017. FINDINGS: TUBES and LINES: None. LUNGS: Normal lung volumes. Lungs are clear. No consolidations. Bibasilar atelectasis. PLEURA: No pleural effusion or pneumothorax. HEART AND MEDIASTINUM: The cardiomediastinal silhouette is unremarkable. There is atherosclerotic calcification of the thoracic aortic arch. BONES AND SOFT TISSUES: No acute osseous lesion. Multiple healed right rib fractures are unchanged. Soft tissues are unremarkable. UPPER ABDOMEN: No free air under the diaphragm. IMPRESSION: No acute thoracic radiographic abnormality. Signed by: Riley Valle MD on 06/08/2020 7:09 PM
--- OUTSIDE RECORDS SUMMARY | 2020-06-08 21:55 | XMS REPORT | Continuity of Care Document ---
Author Author [employer] Address Unknown Phone Unavailable Care Team Providers Care Qm Nurse Name Role Phone [employer] Alert Information [email or web address] Unavailable Un available Problems Problem Status Onset [...] Gibson Former smoker Active Problem 01/25/2018 Philippe Gisbon Dyspnea, unspecified type Acti ve Problem Philippe Gibson Preoperative cardiovascular examination Active Problem 01/25/2018 Philippe Gibson Status post ablation of incompetent vein using laser Active Problem 01/25/2018 Philippe Gibson Fatigue Active Diagnosis 12/19/2017 Keegan Ingram Encounter for screening for other viral diseases Active Diagnosis 09/02/2019 Keegan Ingram intermediate (current) use of opiate analgesic Active Diagnosis [...] Orally Active 4mg Orally once a day [place] 04/22/2020 Keegan Ingram Tylenol/Codeine #3 1 tablet as needed Orally Active 300-30 MG Orally every 6 hrs [facility] 04/14/2020 Keegan Ingram Chlordiazepoxide HCl 1 capsule Orally Active 10 MG Orally Twice a day [facility] 04/14/2020 Keegan Ingram Tramadol HCl 1 tablet as needed Orally Active 50 mg Orally twice a day (bid) [place] 08/20/2019 Keegan Ingram Medrol Dose [place] as directed Orally Active 4mg Orally once a day [facility] 12/01/2018 Keegan Ignram Chlordiazepoxide HCl 1 capsule Orally Active 10 MG Orally Twice a day [place] 09/09/2018 Keegan Ingram Chlordiazepoxide HCl 1 capsule Orally Active 25 MG Orally tid for nausea [place] 08/12/2018 Keegan Ingram PredniSONE 1-2 tabs prn for ar thritis flare up Orally Active 5 MG Orally Once a day [facility] 08/05/2018 Keegan Ingram Zofran 1 tablet Orally Active 8 MG Orally Twice a day [facility] 08/05/2018 Keegan Ingram Tylenol/Codeine #3 1 tablet as needed Orally Active 300-30 MG Orally qid [place] 06/10/2018 Keegan Ingram Meclizine HCl 1 tablet as need ed Orally Active 25 MG Orally Once a day [place] 06/10/2018 Keegan Ingram Vitamin D (Ergocalciferol) 1 c apsule Orally Active 64772 UNIT Orally once a week [place] 12/17/2017 Keegan Ingram Simponi Aria as directed Intravenous Active 50 MG/4ML Intravenous [place] 09/02/2017 Keegan Ingram PredniSONE 1-2 tabs PRN Orally Active 5 MG Orally Once a day [place] 08/20/2017 Keegan Ingram PredniSONE 1-2 tabs PRN [...] Keegan Ingram Heart Rate 64 11/07/2018 Keegan Ignram Diastolic (mm Hg) 72 11/07/2018 Keegan Ingram [...] Ingram Systolic (mm Hg) 110 10/21/2017 Keegan Ignram Weight 235 02/28/2017 Mohamed O Jeroudi Height [...]
--- OUTSIDE RECORDS SUMMARY | 2020-06-08 21:56 | XMS REPORT | Continuity of Care Document ---
Author Author [facility] t Organization [facility] Address [address] [place] [id number] Phone Unavailable Care Team Providers Care Material Clerk Name Role Phone DAVID PORTER PCP ANIHAMPGerson RACQUEL Attphys Unavailable SWEET, Gerson LAIDIANA Attphys Unavailable ARZOLA, NIECY Attphys Unavailable ARZOLA, SOUHEIL Attphys Unavailable AG JACOBSEN Attphys Unavailable SHAW, Gerson HAZEL Attphys Unavailable ELMIRA HUGHES Attphys Unavailable TRACEE PENI Attphys Unavailable Gigi PRAKASH Attphys Unavailable AG JACOBSEN Admphys Unavailable SHAW, A HAZEL Admphys Unavailable TRACEE PENI Admphys Unavailable ARZOLA, SOUHEIL Admphys Unavailable Payers Payer Name Policy Type Policy Number Effective Date Expiration Date S macie [facility] [id number] 2019 00:00:00 [facility] Problems Condition Name Condition Details Condition Category Status Onset Date Resolution Date Last Treatment Date Treating Clinician Comments Source Closed fracture of one rib Closed fracture of one rib Problem Active 2018-02-22 00:00:00 [facility] (LUF/IZAIAH/SA) Arthralgia of bilateral temporomandibular joint Arthra [...] [facility] Dizziness Dizziness Problem Active [facility] Foreign body in esophagus Esophageal foreign body Problem Active [facility] Fever Fever Problem Active [facility] Weakness Generalized weakness Problem Active [facility] Pill esophagitis Pill esophagitis Problem Active [facility] Pneumonia Pneumonia Problem Active [facility] Nausea Problem Active [facility] Pre-syncope Problem Active [facility] Constipation Problem Active [facility] Renal mass Problem Active [facility] Knee pain, right Knee pain, right Active Problem 04/24/2020 Keegan Ingram Problem Active 2020-04-24 02:45:06 John Cárdenas Ankylosing spondylitis of multiple sites in spine Ankylosing spondylitis of multiple sites in spine Active Problem 04/24/2020 Keegan Melgarer Problem Active 2020-04-24 02:45:06 John Cárdenas Long-term use of high-risk medication Long-term use of high-risk medication Active Problem 04/24/2020 Keegan Ingram Problem Active 2020-04-24 02:45:06 John Cárdenas Vitamin D deficiency Kamila min D deficiency Active Problem 04/24/2020 Keegan Ingram Problem Active 2020-04-24 02:45:06 John Cárdenas Nausea Naus ea Active Problem 04/24/2020 Keegan Ingram Problem Active 2020-04-24 02:45:06 John Barillasann Abdominal pain Abdo tammy pain Active Problem 04/24/2020 Keegan Ingram Problem Active 2020-04-24 02:45:06 John Barillasann Shoulder pain, right Shou lder pain, right Active Problem 04/24/2020 Keegan Ingram Problem Active 2020-04-24 02:45:06 John Cárdenas Neck mass Neck mass Active Problem 04/24/2020 Keegan Ingram Problem Active 2020-04-24 02:45:06 John Cárdenas Dizziness Dizz iness Active Problem 04/24/2020 Keegan Ingram Problem Active 2020-04-24 02:45:06 John [place] 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 Active Problem 01/25/2018 Philippe Gibson Problem Active 2018-01-25 02:45:48 John Cárdenas Bilateral lower extremity edema Bilateral lower extremity edema Active Problem 01/25/2018 Philippe Gibson Problem Active 2018-01-25 02:45:48 John Avi Venous insufficiency Veno us insufficiency Active Diagnosis 03/07/2017 Philippe Gibson Diagnosis Active 2017-03-07 02:45 :07 John Cárdenas Essential hypertension Esse ntial hypertension Active Problem 01/25/2018 Philippe Gibson Problem Active 16-01-28 02:45:48 John Cárdenas Obesity (BMI 30.0-34.9) Obes ity (BMI 30.0-34.9) Active Problem 01/25/2018 Philippe Gibson Problem Active 16-01-28 02:45:[address] [facility] Osteoarthritis, unspecified osteoarthritis type, unspe cified site Osteoarthritis, unspecified osteoarthritis type, unspecified site Active Problem 01/25/2018 Philippe Gibson Problem Active 16-01-28 02:45:[address] [facility] Family history of abdominal aortic aneurysm (AAA) Family history of abdominal aortic aneurysm (AAA) Active Problem 01/25/2018 Philippe Gibson Problem Active 2018-01-25 02:45:48 Armando Cárdenas Former smoker Form er smoker Active Problem 01/25/2018 Philippe Gibson Problem Active 2018-01-25 02:45:[address] [facility] Dyspnea, unspecified type Dysp kobi, unspecified type Active Problem 01/25/2018 Philippe Gibson Problem Active 16-01-28 02:45:[address] [facility] Preoperative cardiovascular examination Preoperative cardiovascular examination Active Problem 01/25/2018 Philippe Gibson Problem Active 2018-01-25 02:45:48 Daniel ial Avi 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 Active Problem 01/25/2018 Philippe Gibson Problem Active 2018-01-25 02:45:[address] [facility] Fatigue Fati shane Active Diagnosis 12/19/2017 Keegan Ingram Diagnosis Active 2017-12-19 02:46:26 [facility] Encounter for screening for other viral diseases Encounter for screening for other viral diseases Active Diagnosis 09/02/2019 Keegan Ingram Diagnosis Active 2019-09-02 03:46:32 [facility] correction (current) use of opiate analgesic intermediate frame tender (current) use of opiate analgesic Active Diagnosis 09/02/2019 Keegan Ingram Diagnosis Active 2019-09-02 03:46:32 [facility] Encounter for screening for other bacterial diseases Encounter for screening for other bacterial diseases Active Diagnosis 09/02/2019 Keegan Ingram Diagnosis Active 2019-09-02 03:46:32 [facility] Screening for tuberculosis Scr eening for tuberculosis Active Diagnosis 09/02/2019 Keegan Ingram Diagnosis Active 2019-09-02 03:46:32 [facility] Chronic pain Nail Artist juwan pain Active Problem 04/24/2020 Keegan Ingram Problem Active 2020-04-24 02:45:06 [facility] Immunocompromised state Immu nocompromised state Active Problem 04/24/2020 Keegan Ingram Problem Active 2020-04-24 02 :45:06 [facility] Allergies, Adverse Reactions, Alerts Allergy Name Allergy Type Status Severity Reaction(s) Onset Date Inacti ve Date Treating Clinician Comments Source Remicade Remicade Active Info Not Available 2020-04-14 00:00:00 [facility] Mirapex Mirapex Active nausea/emesis 2020-04-14 00:00:00 [facility] latex DA Active U 2019-01-21 00:00:00 [facility] Latex Allergy to substance Active RASH 2017-06-28 00:00:00 [facility] N.KBrisaA. NJayA. Active Info Not Available 2017-02-28 00:00:00 [facility] latex DA Active U 2013-02-17 00:00:00 [facility] Latex Gloves Adverse Reaction Active Info Not Available [facility] Family History Family Member Diagnosis Comments Start Date Stop Date Source 33 FATHER Family history of arterial aneurysm [facility] 32 MOTHER Family history of arterial aneurysm [facility] 09 SISTER Family history of neuropathy [facility] Social History Social Habit Start Date Stop Date Quantity Comments Source Sex Assigned At 1935 00:00:00 1935 00:00:00 Male [facility] Smoking Status Start Date Stop Date Source Never smoker [facility] (LUF/IZAIAH/SA) Medications Ordered Medication Name Filled Medication Name Start Date Stop Da te Current Medication? Ordering Clinician Indication Dosage Frequency Signature (SIG) Comments Components Source Medrol Dose Davis 2020-04-22 00:00:00 Yes Gregory Ingram as directed [facility] Nexium 2020-04-19 02:46:07 Yes Milad Rodriguez TAKE ONE CAPSULE BY MOUTH EVERY DAY [facility] Atenolol 2020-04-19 02:46:07 Yes Milad Rodriguez 1 t ablet [facility] Gabapentin 2020-04-19 02:46:07 Yes Milad Rodriguez 1 tablet [facility] Vitamin D 2020-04-19 02:46:07 Yes Milad Rodriguez 1 tablet [facility] Tylenol/Codeine #3 2020-04-14 00:00:00 Yes Milad Rodriguez 1 tablet as needed [facility] Chlordiazepoxide HCl 2020-04-14 00:00:00 Yes Milad Rodriguez 1 capsule [facility] Tramadol HCl 2019-08-20 00:00:00 Yes Maria E Martines 1 tablet as needed [facility] Medrol Dose Davis 2018-12-01 00:00:00 Yes Wanikia Botellosaf as directed [facility] Chlordiazepoxide HCl 2018-09-09 00:00:00 Yes Maria E Martines 1 capsule [facility] Chlordiazepoxide HCl 2018-08-12 00:00:00 Yes Evaristo Botellosaf 1 capsule [facility] PredniSONE 2018-08-05 00:00:00 Yes Wajeeha Clau 1-2 tabs prn for arthritis flare up [facility] Zofran 2018-08-05 00:00:00 Yes Milad Rodriguez 1 tab let [facility] Nasacort Nasacort 2018-07-31 00:00:00 Yes Duane Mcdonnell 2 puffs in each nostril [facility] Ofloxacin Ofloxacin 2018-07-31 00:00:00 2018-08-06 00:00:00 No Jayla Mcdonnell 4 drops into affected ear [facility] Gabapentin 2018-06-17 02:46:27 Yes Ronala Clau 1 tablet [facility] Tylenol/Codeine #3 2018-06-10 00:00:00 Yes Maria E Martines 1 tablet as needed [facility] Meclizine HCl 2018-06-10 00:00:00 Yes Milad Rodriguez 1 tablet as needed [facility] Atenolol 2018-01-25 02:45:48 Yes Mohamed Jeroudi 1 tablet [facility] Azelastine HCl 2018-01-25 02:45:48 Yes Mohamed Jeroudi 1 puff in each nostril [facility] Hydrocodone-Acetaminophen 2018-01-25 02:45:48 Yes Mohame d Jeroudi 1 tablet as needed [facility] Omeprazole 2018-01-25 02:45:48 Yes Mohamed Jeroudi 1 capsule [facility] Triamterene-HCTZ 2018-01-25 02:45:48 Yes Mohamed Jeroudi 1 tablet in the morning [facility] Gabapentin 2018-01-25 02:45:48 Yes Mohamed Jeroudi [address] [facility] Asmanex 14 Metered Doses 2018-01-25 02:45:48 Yes Mohamed Jeroudi 1 puff in the evening [facility] Pramipexole Dihydrochloride 2018-01-25 02:45:48 Yes Moha med Jeroudi 1 tablet before bedtime [facility] Stiolto Respimat 2018-01-25 02:45:48 Yes Mohamed Jeroudi 2 puffs [facility] Vitamin D (Ergocalciferol) 2017-12-17 00:00:00 Yes Gretta Melgarer 1 capsule [facility] Ciprodex Ciprodex 2017-12-11 00:00:00 Yes Duane Mcdonnell not defined [facility] Simponi Aria 2017-09-02 00:00:00 Yes Milad Rodriguez as directed [facility] PredniSONE 2017-08-20 00:00:00 Yes Gregory Melgarer 1-[address] [facility] PredniSONE 2017-08-20 00:00:00 Yes Evaristo Clau 1-2 tabs PRN [facility] Atenolol 2017-07-23 02:45:17 Yes Mohamed Jeroudi 1 tablet [facility] Gabapentin 2017-07-23 02:45:17 Yes Mohamed Jeroudi 1 tablet [facility] Pramipexole Dihydrochloride 2017-07-23 02:45:17 Yes Moha med Jeroudi 1 tablet before bedtime [facility] Triamterene-HCTZ 2017-07-23 02:45:17 Yes Mohamed Jeroudi 1 tablet in the morning [facility] Omeprazole 2017-07-23 02:45:17 Yes Mohamed Jeroudi 1 capsule [facility] Azelastine HCl 2017-07-23 02:45:17 Yes Mohamed Jeroudi 1 puff in each nostril [facility] Asmanex 14 Metered Doses 2017-07-23 02:45:17 Yes Mohamed Jeroudi 1 puff in the evening [facility] Hydrocodone-Acetaminophen 2017-07-23 02:45:17 Yes Mohame d Jeroudi 1 tablet as needed [facility] Stiolto Respimat 2017-07-23 02:45:17 Yes Mohamed Jeroudi 2 puffs [facility] Ranitidine HCl Ranitidine HCl 2017-07-16 00:00:00 Yes Duane baezon 1 tablet [facility] Tylenol/Codeine #3 2016-12-28 00:00:00 Yes Evaristo lopez 1 tablet as needed [facility] Acetaminophen 300 MG / Codeine Phosphate 60 MG Oral Ta blet Acetaminophen 300 MG / Codeine Phosphate 60 MG Oral Tablet Yes 1tab QID [facility] ([facility]/IZAIAH/SA) Atenolol 50 MG Oral Tablet Atenolol 50 MG Oral Tablet Yes 50mg [facility] (F/IZAIAH/SA) gabapentin 600 MG Oral Tablet gabapentin 600 MG Oral Tablet Yes 600mg TID [facility] ([facility]/SA) Gabapentin Gabapentin Yes Duane Mcdonnell not defin ed [facility] Triamterene Triamterene Yes Duane Mcdonnell not def ined [facility] Atenolol Atenolol Yes Duane Mcdonnell not defined [facility] Acetamin Acetamin Yes Duane Mcdonnell not defined [facility] Acetaminophen With Codeine (Acetaminophen-Codeine Elix ir) 118 Ml ELIXIR Acetaminophen With Codeine (Acetaminophen-Codeine Elixir) 118 Ml ELIXIR Yes [facility] Atenolol Atenolol Yes 50 Daily [facility] Azithromycin (Z-Davis) 250 Mg TABLET Azithromycin (Z-Davis) 250 Mg TABLET Yes 250 Use As Directed [facility] Chlordiazepoxide Hcl Chlordiazepoxide Hcl Yes [facility] Gabapentin Gabapentin Yes [facility] Ondansetron Ondansetron Yes [facility] Pantoprazole Sodium (Protonix) 40 Mg TABLET. Pantopr azole Sodium (Protonix) 40 Mg TABLET. Yes 40 Daily [facility] Smz/Tmp Smz/Tmp Yes [facility] Spironolactone Spironolactone Yes [facility] Gabapentin Gabapentin 2019-05-15 00:00:00 No 600 Thr ee Times A Day [facility] Ropinirole Hcl Ropinirole Hcl 2019-05-15 00:00:00 No .5 Bedtime [facility] Meclizine Hcl Meclizine Hcl 2019-03-11 00:00:00 No 25 Daily [facility] Pramipexole Di-Hcl (Pramipexole Dihydrochloride) 0.25 Mg TABLET Pramipexole Di- Hcl (Pramipexole Dihydrochloride) 0.25 Mg TABLET 2019-03-11 00:00:00 No .5 Twice A Day [facility] Triamterene/Hctz Triamterene/Hctz 2019-03-11 00:00:00 No Daily [facility] Vital Signs Vital Name Observation Time Observation Value Comments Source Body Temperature 2020-05-20 19:48:00 98.4 [degF] [facility] Weight 2020-05-20 15:27:00 210 [lb_av] [facility] BMI (Body Mass Index) 2020-05-20 15:27:00 30.1 kg/m2 [facility] Weight 2020-04-14 20:00:00 [facility] Height 2020-04-14 20:00:00 [facility] Temperature Oral (F) 2020-04-14 20:00:00 97.9 F [facility] Heart Rate 2020-04-14 20:00:00 [facility] Diastolic (mm Hg) 2020-04-14 20:00:00 Mem [facility] [place] Systolic (mm Hg) 2020-04-14 20:00:00 Armando rial Avi Weight 2019-08-20 20:30:00 [facility] [place] Height 2019-08-20 20:30:00 [facility] [place] Temperature Oral (F) 2019-08-20 20:30:00 97.7 F [facility] [place] Heart Rate 2019-08-20 20:30:00 [facility] [place] Diastolic (mm Hg) 2019-08-20 20:30:00 Mem o[facility] Avi Systolic (mm Hg) 2019-08-20 20:30:00 Armando rial [place] Weight 2019-06-16 18:45:00 [facility] Height 2019-06-16 18:45:00 [facility] Temperature Oral (F) 2019-06-16 18:45:00 98.9 F [facility] Heart Rate 2019-06-16 18:45:00 [facility] [place] Diastolic (mm Hg) 2019-06-16 18:45:00 Mem orial [place] Systolic (mm Hg) 2019-06-16 18:45:00 Armando rial [place] Weight 2019-01-05 16:45:00 [facility] Height 2019-01-05 16:45:00 [facility] [place] Temperature Oral (F) 2019-01-05 16:45:00 96.8 F [facility] Heart Rate 2019-01-05 16:45:00 [facility] [place] Diastolic (mm Hg) 2019-01-05 16:45:00 Mem orial [place] Systolic (mm Hg) 2019-01-05 16:45:00 Armando rial [place] Weight 2018-11-07 16:15:00 [facility] [place] Height 2018-11-07 16:15:00 [facility] [place] Temperature Oral (F) 2018-11-07 16:15:00 96.6 F [facility] Heart Rate 2018-11-07 16:15:00 [facility] [place] Diastolic (mm Hg) 2018-11-07 16:15:00 Mem orial [facility] Systolic (mm Hg) 2018-11-07 16:15:00 Armando rial Avi Weight 2018-11-04 19:15:00 [facility] [place] Height 2018-11-04 19:15:00 [facility] Temperature Oral (F) 2018-11-04 19:15:00 98.0 F [facility] [place] Heart Rate 2018-11-04 19:15:00 [facility] [place] Diastolic (mm Hg) 2018-11-04 19:15:00 Mem orial [place] Systolic (mm Hg) 2018-11-04 19:15:00 Armando rial [place] Weight 2018-09-09 19:00:00 [facility] [place] Height 2018-09-09 19:00:00 [facility] Temperature Oral (F) 2018-09-09 19:00:00 98.8 F [facility] Heart Rate 2018-09-09 19:00:00 [facility] Diastolic (mm Hg) 2018-09-09 19:00:00 Mem [facility] [place] Systolic (mm Hg) 2018-09-09 19:00:00 Armando rial [place] Weight 2018-08-12 21:00:00 [facility] Height 2018-08-12 21:00:00 [facility] [place] Temperature Oral (F) 2018-08-12 21:00:00 97.2 F [facility] [place] Heart Rate 2018-08-12 21:00:00 [facility] Diastolic (mm Hg) 2018-08-12 21:00:00 [facility] Systolic (mm Hg) 2018-08-12 21:00:00 Armando mitzil [place] Weight 2018-08-05 19:00:00 [facility] Height 2018-08-05 19:00:00 [facility] Temperature Oral (F) 2018-08-05 19:00:00 98.5 F [facility] Heart Rate 2018-08-05 19:00:00 [facility] Diastolic (mm Hg) 2018-08-05 19:00:00 [facility] [place] Systolic (mm Hg) 2018-08-05 19:00:00 Armando jackie [place] Weight 2018-06-10 18:30:00 [facility] [place] Height 2018-06-10 18:30:00 [facility] Temperature Oral (F) 2018-06-10 18:30:00 97.0 F [facility] [place] Heart Rate 2018-06-10 18:30:00 [facility] [place] Diastolic (mm Hg) 2018-06-10 18:30:00 Mem [facility] [place] Systolic (mm Hg) 2018-06-10 18:30:00 Armando jackie [place] Body Temperature 2018-02-22 12:32:00 98.2 F [facility] (LUF/IZAIAH/SA) Respiratory Rate 2018-02-22 12:32:00 20 /min [facility] (LUF/IZAIAH/SA) O2% BldC Oximetry 2018-02-22 12:32:00 98 % [facility] (LUF/IZAIAH/SA) BP Systolic 2018-02-22 12:32:00 128 mm[Hg] [facility] (LUF/IZAIAH/SA) BP Diastolic 2018-02-22 12:32:00 71 mm[Hg] [facility] (LUF/IZAIAH/SA) Height 2018-02-22 12:32:00 71 in [facility] (LUF/IZAIAH/SA) Weight Measured 2018-02-22 12:32:00 237 lbs MALINI Pelaez t [facility] (LUF/IZAIAH/SA) BMI (Body Mass Index) 2018-02-22 12:32:00 33.1 MALINI Felix [facility] (LUF/IZAIAH/SA) Weight 2018-02-13 18:15:00 [facility] Height 2018-02-13 18:15:00 [facility] Temperature Oral (F) 2018-02-13 18:15:00 97.3 F [facility] Heart Rate 2018-02-13 18:15:00 [facility] [place] Diastolic (mm Hg) 2018-02-13 18:15:00 [facility] Systolic (mm Hg) 2018-02-13 18:15:00 Armando rial Avi Weight 2017-12-16 20:00:00 [facility] Height 2017-12-16 20:00:00 [facility] Temperature Oral (F) 2017-12-16 20:00:00 98.2 F [facility] [place] Heart Rate 2017-12-16 20:00:00 [facility] Diastolic (mm Hg) 2017-12-16 20:00:00 [facility] Systolic (mm Hg) 2017-12-16 20:00:00 Armando rial [place] Weight 2017-10-21 21:30:00 [facility] Height 2017-10-21 21:30:00 [facility] [place] Temperature Oral (F) 2017-10-21 21:30:00 99.0 F [facility] [place] Heart Rate 2017-10-21 21:30:00 [facility] Diastolic (mm Hg) 2017-10-21 21:30:00 [facility] Systolic (mm Hg) 2017-10-21 21:30:00 Armando rial [place] Weight 2017-02-28 18:00:00 [facility] Height 2017-02-28 18:00:00 [facility] [place] Temperature Oral (F) 2017-02-28 18:00:00 97.3 F [facility] Heart Rate 2017-02-28 18:00:00 [facility] [place] Diastolic (mm Hg) 2017-02-28 18:00:00 Mem o[facility] [place] Systolic (mm Hg) 2017-02-28 18:00:00 Armando rial Avi Weight 2017-01-31 20:00:00 [facility] Height 2017-01-31 20:00:00 [facility] Temperature Oral (F) 2017-01-31 20:00:00 97.6 F [facility] Heart Rate 2017-01-31 20:00:00 [facility] Diastolic (mm Hg) 2017-01-31 20:00:00 [facility] [place] Systolic (mm Hg) 2017-01-31 20:00:00 Armando rial [place] Weight 2017-01-16 20:30:00 [facility] [place] Height 2017-01-16 20:30:00 [facility] [place] Temperature Oral (F) 2017-01-16 20:30:00 98.0 F [facility] [place] Heart Rate 2017-01-16 20:30:00 [facility] [place] Diastolic (mm Hg) 2017-01-16 20:30:00 [facility] Systolic (mm Hg) 2017-01-16 20:30:00 Armando rial [place] Procedures Procedure Date / Time Performed Performing Clinician [facility] e CT of abdomen and pelvis without contrast 2020-05-20 00:00:00 [facility] Computed tomography of abdomen and pelvis with contrast 00:00:00 [facility] Computed tomography of brain without radiopaque contrast 2020-03 00:00:00 [facility] Encounters Start Date/Time End Date/Time En[facility] ID Source 2020-05-20 17:40:00 2020-05-20 20:15:00 Departed Emergency Room PER AU [facility] [id number] [facility] 2020-05-12 16:56:00 2020-05-12 16:56:00 Registered Clinic 3 NIECY ARZOLA [facility] [id number] [facility] 2020-05-11 17:07:00 2020-05-11 17:07:00 Registered Clinic 3 KLAUDIA ARZOLA [facility] [id number] [facility] 2020-04-22 09:51:00 2020-04-22 09:51:00 Outpatient Gregory Ingram MD [place] [id number] Keegan Ingram MD 2020-04-14 15:00:00 2020-04-14 15:00:00 Outpatient Gregory Ingram MD [place] [id number] MIRACLE Ingram MD 2020-04-01 12:13:00 2020-04-02 21:44:00 Discharged Inpatient 1 AG JACOBSEN [facility] [id number] [facility] Medical Cost 2020-03-16 13:53:00 2020-03-16 15:50:00 Departed Emergency Room [facility] [id number] [facility] 2020-03-14 13:57:00 2020-03-14 13:57:00 Outpatient Gregory Ingram MD [place] [id number] Keegan Ingram MD 2020-03-13 16:51:00 2020-03-14 00:05:00 Departed Emergency Room 1 PER AU [facility] [facility] [id number] [facility] - Patients [facility] 2019-11-09 15:05:00 2019-11-09 15:05:00 Outpatient MD GALILEA Cazares MD PA [id number] Keegan Ingram MD 2019-10-28 16:53:00 2019-10-28 16:53:00 Outpatient MD GALILEA Cazares MD [place] [id number] Keegan Ingram MD 2019-08-20 14:53:00 2019-08-20 14:53:00 Outpatient MD GALILEA Cazares MD PA [id number] MIRACLE Ingram MD 2019-08-20 14:30:00 2019-08-20 14:30:00 Outpatient Gregory Ingram MD PA [id number] MIRACLE Ingram MD 2019-06-16 13:45:00 2019-06-16 13:45:00 Outpatient Gregory CALERO [id number] Keegan Ingram MD 2019-06-03 12:40:00 2019-06-03 12:40:00 Outpatient MD GALILEA Villa MD PA [id number] Keegan Ingram MD 2019-05-20 11:17:00 2019-05-20 11:17:00 Outpatient Gregory Ingram MD PA [id number] Keegan Ingram MD 2019-05-14 02:17:00 2019-05-15 18:35:00 Discharged Inpatient (obs) 1 [facility] [id number] [facility] 2019-03-30 14:59:00 2019-03-30 14:59:00 Outpatient Gregory Ingram MD PA [id number] Keegan Ingram MD 2019-03-17 07:14:00 2019-03-17 07:14:00 Registered Surgical Day Car e [facility] [id number] [facility] 2019-03-04 16:27:00 2019-03-04 16:27:00 Outpatient Gregory CALERO [id number] Keegan Ingram MD 2019-01-08 10:55:00 2019-01-08 10:55:00 Outpatient [facility] [id number] [facility] 2019-01-05 11:45:00 2019-01-05 11:45:00 Outpatient Gregory Ingram MD PA [id number] Keegan Ingram MD 2018-12-01 16:00:00 2018-12-01 16:00:00 Outpatient Gregory CALERO [id number] Keegan Ingram MD 2018-11-28 13:18:00 2018-11-28 13:18:00 Outpatient Gregory Ingram MD PA [id number] Keegan Ingram MD 2018-11-07 10:15:00 2018-11-07 10:15:00 Outpatient Gregory CALERO [id number] Keegan Ingram MD 2018-11-04 13:15:00 2018-11-04 13:15:00 Outpatient Gregory CALERO [id number] Keegan Ingram MD 2018-09-09 13:00:00 2018-09-09 13:00:00 Outpatient Gregory CALERO [id number] Keegan Ingram MD 2018-08-26 14:53:00 2018-08-26 14:53:00 Outpatient Gregory CALERO [id number] Keegan Ingram MD 2018-08-12 15:00:00 2018-08-12 15:00:00 Outpatient Gregory CALERO [id number] Keegan Ingram MD 2018-08-05 13:00:00 2018-08-05 13:00:00 Outpatient Gregory CALERO [id number] Keegan Ingram MD 2018-07-31 10:00:00 2018-07-31 10:00:00 Outpatient [facility] [id number] [facility] 2018-07-30 15:49:00 2018-07-30 15:49:00 Outpatient [facility] P [id number] [facility] 2018-06-23 18:55:00 2018-06-23 18:55:00 Outpatient [facility] [id number] [facility] 2018-06-10 14:46:00 2018-06-10 14:46:00 Outpatient Gregory CALERO [id number] Keegan Ingram MD 2018-06-10 13:30:00 2018-06-10 13:30:00 Outpatient Gregory CALERO [id number] Keegan Ingram MD 2018-02-22 12:13:00 2018-02-22 14:30:00 FX 1 RIB LT SIDE INITIAL CL OS FX 1 JOE EASLEY [facility], [address] [place] [address], [place] [address] [facility] [id number] [facility] (LUF /IZAIAH/SA) 2018-02-13 13:15:00 2018-02-13 13:15:00 Outpatient Gregory CALERO [id number] Keegan Ingram MD 2018-02-11 15:39:00 2018-02-11 15:39:00 Outpatient Gregory CALERO [id number] Keegan Ingram MD 2017-12-17 12:56:00 2017-12-17 12:56:00 Outpatient Gregory Ingram MD PA [id number] Keegan Ingram MD 2017-12-16 15:00:00 2017-12-16 15:00:00 Outpatient Gregory Ingram MD PA [id number] Keegan Ingram MD 2017-12-11 13:20:00 2017-12-11 13:20:00 Outpatient [facility] [id number] [facility] 2017-12-04 13:00:00 2017-12-04 13:00:00 Outpatient [facility] [id number] [facility] 2017-10-22 08:34:00 2017-10-22 08:34:00 Outpatient Gregory Ingram MD PA [id number] Keegan Ingram MD 2017-10-21 15:30:00 2017-10-21 15:30:00 Outpatient Gregory Ingram MD PA [id number] Keegan Ingram MD 2017-02-28 13:00:00 2017-02-28 13:00:00 Outpatient Philippe CALERO [id number] [employer] 2017-02-12 11:00:00 2017-02-12 11:00:00 Outpatient Philippe Gibson MD PA [id number] [employer] 2017-01-31 15:00:00 2017-01-31 15:00:00 Outpatient Philippe CALERO [id number] [employer] 2017-01-16 15:30:00 2017-01-16 15:30:00 Outpatient Philippe CALERO [id number] [employer] Designed Results Test Description Test Time Test Comments Results Result Comments Source CXR 2 VIEW - HOPD 2020-06-08 19:03:00 [place] [id number] Patient Name: NOEMY ARGUETA MR #: [id number] : 1935 Age/Sex: 84/M Req #: [id number] Adm Physician: Ordered by: RACQUEL DELGADO MD Report #: [id number] Location: [facility] Room/Bed: Procedure: [id number] HOPD/CXR 2 VIEW - HOPD Exam Date: 06/08/20 Exam Time: 1838 REPORT STATUS: Signed EXAMINATION: CXR 2 VIEW - HOPD INDICATION: Nausea. COMPARISON: Chest x-ray on 04/10/2017. FINDINGS: TUBES and LINES: None. LUNGS: Normal lung volumes. Lungs are clear. No consolidations. Bibasilar atelectasis. PLEURA: No pleural effusion or pneumothorax. HEART AND MEDIASTINUM: The cardiomediastinal silhouette is unremarkable. There is atherosclerotic calcification of the thoracic aortic arch. BONES AND SOFT TISSUES: No acute osseous lesion. Multiple healed right rib fractures are unchanged. Soft tissues are unremarkable. UPPER ABDOMEN: No free air under the diaphragm. IMPRESSION: No acute thoracic radiographic abnormality. Signed by: Riley Cervantes MD on 06/08/2020 7:09 PM Dictated By: RILEY CERVANTES MD 08 T ranscribed By: APOORVA on 06/08/201908 COPY TO: RACQUEL DELGADO MD CT ABDOMEN/PELVIS WO 2020-05-20 17:22:00 [place] [address] Patient Name: NOEMY ARGUETA MR #: [id number] : 1935 Age/Sex: 84/M Req #: [id number] Adm Physician: Ordered by: PER AU MD Report #: [id number] Location: ER Room/Bed: Procedure: [id number] CT/CT ABDOMEN/PELVIS WO Exam Date: 05/20/20 Exam Time: 8 REPORT STATUS: Signed CT Abdomen and Pelvis [...] Color (test code = 5778-6) YELLOW YELLOW [facility] khjdkxo6097-09-37 16:58:00* Test Item Value Reference Range Interpretation Comments Urine Clarity (test code = 30177-7) SL CLOUDY CLEAR [facility] of Urine by Test strip 2020-05-20 16:58:00* Test Item Value Reference Range Interpretation Comments Urine Specific [place] (test code = 5811-5) 1.010 1.010-1.02 5 [facility] pH measurement by automated test [id number] 16:58:00* Test Item Value Reference Range Interpretation Comments Urine pH (test code = 55166-4) 6 5-7 [facility] leukocyte esterase detection by vbtmyiml9270-05-45 16:58:00* Test Item Value Reference Range Interpretation Comments Urine Leukocyte Esterase (test code = 5799-2) NEGATIVE NEGATIVE [facility] Texas[facility] nitrite dngeobwvc5345-71-97 16:58:00* Test Item Value Reference Range Interpretation Comments Urine Nitrite (test code = 14404-0) NEGATIVE NEGATIVE [facility] Texas[facility] protein measurement by test strip (mass/volume)2020-05-20 16:58:00* Test Item Value Reference Range Interpretation Comments Urine Protein (test code = 5804-0) NEGATIVE NEGATIVE [facility] glucose rtgiluhlk7692-60-39 16:58:00* Test Item Value Reference Range Interpretation Comments Urine Glucose (UA) (test code = 2349-9) NEGATIVE NEGATIVE [facility] Texas[facility] ketones detection by automated test pjpxh8944-46-65 16:58:00* Test Item Value Reference Range Interpretation Comments Urine Ketones (test code = 51282-1) NEGATIVE NEGATIVE [facility] Texas[facility]rine urobilinogen measurement by test strip (mass/volume)2020-05-20 16:58:00* Test Item Value Reference Range Interpretation Comments Urine Urobilinogen (test code = 50017-6) 0.2 0.2-1 [facility] total bilirubin measurement (mass/volume)2020-05-20 16:58:00* Test Item Value Reference Range Interpretation Comments Urine Bilirubin (test code = 1978-6) NEGATIVE NEGATIVE [facility] erythrocytes ghlrthvhr3531-45-62 16:58:00* Test Item Value Reference Range Interpretation Comments Urine Blood (test code = 59623-6) NEGATIVE NEGATIVE [facility] TexasAutomated urine sediment leukocyte count by microscopy (number/high power field)2020-05-20 16:58:00* Test Item Value Reference Range Interpretation Comments Urine WBC (test code = 5821-4) NONE 0-5 [facility] TexasErythrocytes detection in urine sediment by light nggqqupvcd4018-26-14 16:58:00* Test Item Value Reference Range Interpretation Comments Urine RBC (test code = 66036-9) NONE 0-5 [facility] TexasBacteria detection in urine sediment by light lmbgtlzefg8608-21-46 16:58:00* Test Item Value Reference Range Interpretation Comments Urine Bacteria (test code = 71654-8) FEW NONE [facility] TexasEpithelial cells detection in urine sediment by light itqqqyxxtw2740-98-97 16:58:00* Test Item Value Reference Range Interpretation Comments Urine Epithelial Cells (test code = 63298-5) RARE NONE [facility] TexasU[facility] color jemwlytjhmyll5632-65-64 16:58:00* Test Item Value Reference Range Interpretation Comments Urine Color (test code = 5778-6) YELLOW YELLOW [facility] TexasUrine omfnghq0736-87-24 16:58:00* Test Item Value Reference Range Interpretation Comments Urine Clarity (test code = 72349-2) SL CLOUDY CLEAR [facility] gravity of Urine by Test strip 2020-05-20 16:58:00* Test Item Value Reference Range Interpretation Comments Urine Specific [place] (test code = 5811-5) 1.010 1.010-1.02 5 [facility] Texas[facility] pH measurement by automated test [id number] 16:58:00* Test Item Value Reference Range Interpretation Comments Urine pH (test code = 44122-1) 6 5-7 [facility] TexasUrine leukocyte esterase detection by dxdxvfrl9084-73-26 16:58:00* Test Item Value Reference Range Interpretation Comments Urine Leukocyte Esterase (test code = 5799-2) NEGATIVE NEGATIVE [facility] Texas[facility]rine nitrite zqyshqqxi9532-03-10 16:58:00* Test Item Value Reference Range Interpretation Comments Urine Nitrite (test code = 88085-4) NEGATIVE NEGATIVE [facility] Texas[facility] protein measurement by test strip (mass/volume)2020-05-20 16:58:00* Test Item Value Reference Range Interpretation Comments Urine Protein (test code = 5804-0) NEGATIVE NEGATIVE [facility] TexasUrine glucose idghxrsxs1195-60-69 16:58:00* Test Item Value Reference Range Interpretation Comments Urine Glucose (UA) (test code = 2349-9) NEGATIVE NEGATIVE [facility] TexasUrine ketones detection by automated test yoabu5347-33-53 16:58:00* Test Item Value Reference Range Interpretation Comments Urine Ketones (test code = 71962-7) NEGATIVE NEGATIVE [facility] TexasUrine urobilinogen measurement by test strip (mass/volume)2020-05-20 16:58:00* Test Item Value Reference Range Interpretation Comments Urine Urobilinogen (test code = 32324-3) 0.2 0.2-1 [facility] Texas[facility]rine total bilirubin measurement (mass/volume)2020-05-20 16:58:00* Test Item Value Reference Range Interpretation Comments Urine Bilirubin (test code = 1978-6) NEGATIVE NEGATIVE [facility] TexasUrine erythrocytes bbcqenqff2399-65-72 16:58:00* Test Item Value Reference Range Interpretation Comments Urine Blood (test code = 95506-3) NEGATIVE NEGATIVE [facility] TexasAutomated urine sediment leukocyte count by microscopy (number/high power field)2020-05-20 16:58:00* Test Item Value Reference Range Interpretation Comments Urine WBC (test code = 5821-4) NONE 0-5 [facility] TexasErythrocytes detection in urine sediment by light mvwspjkjra8370-84-77 16:58:00* Test Item Value Reference Range Interpretation Comments Urine RBC (test code = 86205-8) NONE 0-5 [facility] TexasBacteria detection in urine sediment by light irgolqmnoo9435-16-24 16:58:00* Test Item Value Reference Range Interpretation Comments Urine Bacteria (test code = 03656-3) FEW NONE [facility] TexasEpithelial cells detection in urine sediment by light hxfqaceyma5132-61-05 16:58:00* Test Item Value Reference Range Interpretation Comments Urine Epithelial Cells (test code = 08101-2) RARE NONE [facility] TexasBlood leukocytes automated count (number/volume)2020-05-20 15:36:00* Test Item Value Reference Range Interpretation Comments White Blood Count (test code = 6690-2) 8.36 4.8-10.8 [facility] TexasBlood erythrocytes automated count (number/volume)2020-05-20 15:36:00* Test Item Value Reference Range Interpretation Comments Red Blood Count (test code = 789-8) 5.04 4.3-5.7 [facility] TexasBlood hemoglobin measurement (moles/volume)2020-05-20 15:36:00* Test Item Value Reference Range Interpretation Comments Hemoglobin (test code = 61748-7) 15.1 14.0-18.0 [facility] TexasAutomated blood hematocrit (volume fraction)2020-05-20 15:36:00* Test Item Value Reference Range Interpretation Comments Hematocrit (test code = 4544-3) 45.8 38.2-49.6 [facility] TexasAutomated erythrocyte mean corpuscular oupxol5396-91-53 15:36:00* Test Item Value Reference Range Interpretation Comments Mean Corpuscular Volume (test code = 787-2) 90.9 81-99 [facility] TexasAutomated erythrocyte mean corpuscular hemoglobin (mass per erythrocyte)2020-05-20 15:36:00* Test Item Value Reference Range Interpretation Comments Mean Corpuscular Hemoglobin (test code = 785-6) 30.0 28-32 [facility] TexasAutomated erythrocyte mean corpuscular hemoglobin concentration measurement (mass/volume)2020-05-20 15:36:00* Test Item Value Reference Range Interpretation Comments Mean Corpuscular Hemoglobin Concent (test code = 786-4) 33.0 31-35 [facility] TexasRDW CjrKg-Gxm6286-92-21 15:36:00* Test Item Value Reference Range Interpretation Comments Red Cell Distribution Width (test code = 50923-7) 14.0 11.7 -14.4 [facility] TexasAutomated blood platelet count (count/volume)2020-05-20 15:36:00* Test Item Value Reference Range Interpretation Comments Platelet Count (test code = 777-3) 187 140-360 [facility] TexasAutomated blood segmented neutrophil count as percentage of total quafdrnebt7033-90-98 15:36:00* Test Item Value Reference Range Interpretation Comments Neutrophils (%) (Auto) (test code = 11793-0) 65.9 38.7-80.0 [facility] TexasAutomated blood lymphocyte count as percentage ot total mkdddlmyfy4989-64-39 15:36:00* Test Item Value Reference Range Interpretation Comments Lymphocytes (%) (Auto) (test code = 736-9) 24.4 18.0-39.1 [facility] TexasAutomated blood monocyte count as percentage of total wtgenoxbfz7998-24-71 15:36:00* Test Item Value Reference Range Interpretation Comments Monocytes (%) (Auto) (test code = 5905-5) 8.1 4.4-11.3 [facility] TexasAutomated blood eosinophil count as percentage of total aiillecbtn7355-77-28 15:36:00* Test Item Value Reference Range Interpretation Comments Eosinophils (%) (Auto) (test code = 713-8) 0.6 0.0-6.0 [facility] TexasAutomated blood basophil count as percentage of total ufjkqdlznd7195-91-37 15:36:00* Test Item Value Reference Range Interpretation Comments Basophils (%) (Auto) (test code = 706-2) 0.6 0.0-1.0 [facility] TexasFluoroscopic procedure less than one hour hjrpdumz9792-64-59 15:36:00* Test Item Value Reference Range Interpretation Comments IM GRANULOCYTES % (test code = IM GRANULOCYTES %) 0.4 0.0- 1.0 [facility] TexasAutomated blood neutrophil count 2020-05-20 15:36:00* Test Item Value Reference Range Interpretation Comments Neutrophils # (Auto) (test code = 751-8) 5.5 2.1-6.9 [facility] TexasBlood lymphocytes count (number/volume) 2020-05-20 15:36:00* Test Item Value Reference Range Interpretation Comments Lymphocytes # (Auto) (test code = 02321-8) 2.0 1.0-3.2 [facility] TexasBlood monocytes automated count (number/volume)2020-05-20 15:36:00* Test Item Value Reference Range Interpretation Comments Monocytes # (Auto) (test code = 742-7) 0.7 0.2-0.8 [facility] TexasAutomated blood eosinophil count 2020-05-20 15:36:00* Test Item Value Reference Range Interpretation Comments Eosinophils # (Auto) (test code = 711-2) 0.1 0.0-0.4 [facility] TexasAutomated blood basophil count (count/volume)2020-05-20 15:36:00* Test Item Value Reference Range Interpretation Comments Basophils # (Auto) (test code = 704-7) 0.1 0.0-0.1 [facility] TexasFluoroscopic procedure less than one hour bbsuigng5681-66-19 15:36:00* Test Item Value Reference Range Interpretation Comments Absolute Immature Granulocyte (auto (faye t code = Absolute Immature Granulocyte (auto) 0.03 0-0.1 [facility] or plasma sodium measurement (moles/volume)2020-05-20 15:36:00* Test Item Value Reference Range Interpretation Comments Sodium Level (test code = 2951-2) 140 136-145 [facility]landerum or plasma potassium measurement (moles/volume)2020-05-20 15:36:00* Test Item Value Reference Range Interpretation Comments Potassium Level (test code = 2823-3) 4.1 3.5-5.1 [facility]landerum or plasma chloride measurement (moles/volume)2020-05-20 15:36:00* Test Item Value Reference Range Interpretation Comments Chloride Level (test code = 2075-0) 104 98-107 [facility]landerum or plasma carbon dioxide, total measurement (moles/volume)2020-05-20 15:36:00* Test Item Value Reference Range Interpretation Comments Carbon Dioxide Level (test code = 2028-9) 23 22-29 [facility]landerum or plasma anion xjc1442-33-18 15:36:00* Test Item Value Reference Range Interpretation Comments Anion Gap (test code = 81849-5) 17.1 8-16 [facility]landerum or plasma urea nitrogen measurement (mass/volume)2020-05-20 15:36:00* Test Item Value Reference Range Interpretation Comments Blood Urea Nitrogen (test code = 3094-0) 12 7-26 [facility]landerum or plasma creatinine measurement (mass/volume)2020-05-20 15:36:00* Test Item Value Reference Range Interpretation Comments Creatinine (test code = 2160-0) 1.31 0.72-1.25 [facility]landerum or plasma urea nitrogen/creatinine mass ngywj0323-50-61 15:36:00* Test Item Value Reference Range Interpretation Comments BUN/Creatinine Ratio (test code = 3097-3) 9 6-25 [facility] TexasEstimated glomerular filtration rate (GFR) rgdainesnisxp9620-78-38 15:36:00* Test Item Value Reference Range Interpretation Comments Estimat Glomerular Filtration Rate (test code = 731324507) 52 >60 Ranges were taken from the National Kidney Disease Education Program and the [facility] Kidney Foundation literature.Reference ranges:60 or greater: Dchppe22-21 ( for 3 consecutive months): Chronic kidney disease 15 or less: Kidney failureD[facility] TexasGlucose rjgzvshxuik5076-89-88 15:36:00* Test Item Value Reference Range Interpretation Comments Glucose Level (test code = EVB1470) 120 74-118 [facility]landerum or plasma calcium measurement (mass/volume)2020-05-20 15:36:00* Test Item Value Reference Range Interpretation Comments Calcium Level (test code = 61115-0) 9.6 8.4-10.2 [facility]landerum or plasma magnesium measurement (mass/volume)2020-05-20 15:36:00* Test Item Value Reference Range Interpretation Comments Magnesium Level (test code = 33534-9) 1.5 1.3-2.1 [facility]landerum or plasma total bilirubin measurement (mass/volume)2020-05-20 15:36:00* Test Item Value Reference Range Interpretation Comments Total Bilirubin (test code = 1975-2) 0.5 0.2-1.2 [facility] TexasFluoroscopic procedure less than one hour bunvrpqa0954-35-81 15:36:00* Test Item Value Reference Range Interpretation Comments Aspartate Amino Transf (AST/SGOT) (test code = Aspartate Amino Transf (AST/SGOT)) 15 5-34 [facility]landerum or plasma alanine aminotransferase measurement (enzymatic activity/volume)2020-05-20 15:36:00* Test Item Value Reference Range Interpretation Comments Alanine Aminotransferase (ALT/SGPT) (test code = 1742-6) 10 0-55 [facility] Mainlanderum or plasma protein measurement (mass/volume)2020-05-20 15:36:00* Test Item Value Reference Range Interpretation Comments Total Protein (test code = 2885-2) 7.6 6.5-8.1 [facility]landerum or plasma albumin measurement (mass/volume)2020-05-20 15:36:00* Test Item Value Reference Range Interpretation Comments Albumin (test code = 1751-7) 4.0 3.5-5.0 [facility] TexasPlasma globulin measurement (mass/volume) 2020-05-20 15:36:00* Test Item Value Reference Range Interpretation Comments Globulin (test code = 68604-0) 3.6 2.3-3.5 [facility]landerum or plasma albumin/globulin mass ltdna0525-57-81 15:36:00* Test Item Value Reference Range Interpretation Comments Albumin/Globulin Ratio (test code = 1759-0) 1.1 0.8-2.0 [facility]landerum or plasma alkaline phosphatase measurement (enzymatic activity/volume)2020-05-20 15:36:00* Test Item Value Reference Range Interpretation Comments Alkaline Phosphatase (test code = 6768-6) 54 40-150 [facility] TexasBlood leukocytes automated count (number/volume)2020-05-20 15:36:00* Test Item Value Reference Range Interpretation Comments White Blood Count (test code = 6690-2) 8.36 4.8-10.8 [facility] TexasBlood erythrocytes automated count (number/volume)2020-05-20 15:36:00* Test Item Value Reference Range Interpretation Comments Red Blood Count (test code = 789-8) 5.04 4.3-5.7 [facility] TexasBlood hemoglobin measurement (moles/volume)2020-05-20 15:36:00* Test Item Value Reference Range Interpretation Comments Hemoglobin (test code = 81407-8) 15.1 14.0-18.0 [facility] TexasAutomated blood hematocrit (volume fraction)2020-05-20 15:36:00* Test Item Value Reference Range Interpretation Comments Hematocrit (test code = 4544-3) 45.8 38.2-49.6 [facility] TexasAutomated erythrocyte mean corpuscular wpilvn8702-89-51 15:36:00* Test Item Value Reference Range Interpretation Comments Mean Corpuscular Volume (test code = 787-2) 90.9 81-99 [facility] TexasAutomated erythrocyte mean corpuscular hemoglobin (mass per erythrocyte)2020-05-20 15:36:00* Test Item Value Reference Range Interpretation Comments Mean Corpuscular Hemoglobin (test code = 785-6) 30.0 28-32 [facility] TexasAutomated erythrocyte mean corpuscular hemoglobin concentration measurement (mass/volume)2020-05-20 15:36:00* Test Item Value Reference Range Interpretation Comments Mean Corpuscular Hemoglobin Concent (test code = 786-4) 33.0 31-35 [facility] TexasRDW SkpCt-Qou2473-40-21 15:36:00* Test Item Value Reference Range Interpretation Comments Red Cell Distribution Width (test code = 85015-8) 14.0 11.7 -14.4 [facility] TexasAutomated blood platelet count (count/volume)2020-05-20 15:36:00* Test Item Value Reference Range Interpretation Comments Platelet Count (test code = 777-3) 187 140-360 [facility] TexasAutomated blood segmented neutrophil count as percentage of total imnjfitqae2403-73-77 15:36:00* Test Item Value Reference Range Interpretation Comments Neutrophils (%) (Auto) (test code = 64066-3) 65.9 38.7-80.0 [facility] TexasAutomated blood lymphocyte count as percentage ot total fotlvbsgep9973-33-01 15:36:00* Test Item Value Reference Range Interpretation Comments Lymphocytes (%) (Auto) (test code = 736-9) 24.4 18.0-39.1 [facility] TexasAutomated blood monocyte count as percentage of total zrvysmrmjh2557-14-75 15:36:00* Test Item Value Reference Range Interpretation Comments Monocytes (%) (Auto) (test code = 5905-5) 8.1 4.4-11.3 [facility] TexasAutomated blood eosinophil count as percentage of total sxdwmsbkkz0187-14-11 15:36:00* Test Item Value Reference Range Interpretation Comments Eosinophils (%) (Auto) (test code = 713-8) 0.6 0.0-6.0 [facility] TexasAutomated blood basophil count as percentage of total zaatmvhodt7784-75-70 15:36:00* Test Item Value Reference Range Interpretation Comments Basophils (%) (Auto) (test code = 706-2) 0.6 0.0-1.0 [facility] TexasFluoroscopic procedure less than one hour iaeycqbu3374-78-60 15:36:00* Test Item Value Reference Range Interpretation Comments IM GRANULOCYTES % (test code = IM GRANULOCYTES %) 0.4 0.0- 1.0 [facility] TexasAutomated blood neutrophil count 2020-05-20 15:36:00* Test Item Value Reference Range Interpretation Comments Neutrophils # (Auto) (test code = 751-8) 5.5 2.1-6.9 [facility] TexasBlood lymphocytes count (number/volume) 2020-05-20 15:36:00* Test Item Value Reference Range Interpretation Comments Lymphocytes # (Auto) (test code = 43234-9) 2.0 1.0-3.2 [facility] TexasBlood monocytes automated count (number/volume)2020-05-20 15:36:00* Test Item Value Reference Range Interpretation Comments Monocytes # (Auto) (test code = 742-7) 0.7 0.2-0.8 [facility] TexasAutomated blood eosinophil count 2020-05-20 15:36:00* Test Item Value Reference Range Interpretation Comments Eosinophils # (Auto) (test code = 711-2) 0.1 0.0-0.4 [facility] TexasAutomated blood basophil count (count/volume)2020-05-20 15:36:00* Test Item Value Reference Range Interpretation Comments Basophils # (Auto) (test code = 704-7) 0.1 0.0-0.1 [facility] TexasFluoroscopic procedure less than one hour fiyjiiam7948-36-17 15:36:00* Test Item Value Reference Range Interpretation Comments Absolute Immature Granulocyte (auto (faye t code = Absolute Immature Granulocyte (auto) 0.03 0-0.1 [facility]landerum or plasma sodium measurement (moles/volume)2020-05-20 15:36:00* Test Item Value Reference Range Interpretation Comments Sodium Level (test code = 2951-2) 140 136-145 [facility] Mainlanderum or plasma potassium measurement (moles/volume)2020-05-20 15:36:00* Test Item Value Reference Range Interpretation Comments Potassium Level (test code = 2823-3) 4.1 3.5-5.1 [facility] Mainlanderum or plasma chloride measurement (moles/volume)2020-05-20 15:36:00* Test Item Value Reference Range Interpretation Comments Chloride Level (test code = 2075-0) 104 98-107 [facility] Mainlanderum or plasma carbon dioxide, total measurement (moles/volume)2020-05-20 15:36:00* Test Item Value Reference Range Interpretation Comments Carbon Dioxide Level (test code = 2028-9) 23 22-29 [facility] Mainlanderum or plasma anion alg9508-84-01 15:36:00* Test Item Value Reference Range Interpretation Comments Anion Gap (test code = 72740-9) 17.1 8-16 [facility] Mainlanderum or plasma urea nitrogen measurement (mass/volume)2020-05-20 15:36:00* Test Item Value Reference Range Interpretation Comments Blood Urea Nitrogen (test code = 3094-0) 12 7-26 [facility] Mainlanderum or plasma creatinine measurement (mass/volume)2020-05-20 15:36:00* Test Item Value Reference Range Interpretation Comments Creatinine (test code = 2160-0) 1.31 0.72-1.25 [facility] Mainlanderum or plasma urea nitrogen/creatinine mass quqfq9272-79-58 15:36:00* Test Item Value Reference Range Interpretation Comments BUN/Creatinine Ratio (test code = 3097-3) 9 6-25 [facility] TexasEstimated glomerular filtration rate (GFR) lhojqrrcgoksu5801-82-84 15:36:00* Test Item Value Reference Range Interpretation Comments Estimat Glomerular Filtration Rate (test code = 119773988) 52 >60 Ranges were taken from the National Kidney Disease Education Program and the [facility] Foundation literature.Reference ranges:60 or greater: Akidzc47-70 ( for 3 consecutive months): Chronic kidney disease 15 or less: Kidney failureD[facility] at [facility] University of TexasGlucose lxmoicplnah2570-99-13 15:36:00* Test Item Value Reference Range Interpretation Comments Glucose Level (test code = EFT6774) 120 74-118 [facility]landerum or plasma calcium measurement (mass/volume)2020-05-20 15:36:00* Test Item Value Reference Range Interpretation Comments Calcium Level (test code = 73659-8) 9.6 8.4-10.2 [facility] Mainlanderum or plasma magnesium measurement (mass/volume)2020-05-20 15:36:00* Test Item Value Reference Range Interpretation Comments Magnesium Level (test code = 15001-2) 1.5 1.3-2.1 [facility] Mainlanderum or plasma total bilirubin measurement (mass/volume)2020-05-20 15:36:00* Test Item Value Reference Range Interpretation Comments Total Bilirubin (test code = 1975-2) 0.5 0.2-1.2 [facility] TexasFluoroscopic procedure less than one hour loqagqzh9368-66-41 15:36:00* Test Item Value Reference Range Interpretation Comments Aspartate Amino Transf (AST/SGOT) (test code = Aspartate Amino Transf (AST/SGOT)) 15 5-34 [facility] Mainlanderum or plasma alanine aminotransferase measurement (enzymatic activity/volume)2020-05-20 15:36:00* Test Item Value Reference Range Interpretation Comments Alanine Aminotransferase (ALT/SGPT) (test code = 1742-6) 10 0-55 [facility] Mainlanderum or plasma protein measurement (mass/volume)2020-05-20 15:36:00* Test Item Value Reference Range Interpretation Comments Total Protein (test code = 2885-2) 7.6 6.5-8.1 [facility] Mainlanderum or plasma albumin measurement (mass/volume)2020-05-20 15:36:00* Test Item Value Reference Range Interpretation Comments Albumin (test code = 1751-7) 4.0 3.5-5.0 [facility] TexasPlasma globulin measurement (mass/volume) 2020-05-20 15:36:00* Test Item Value Reference Range Interpretation Comments Globulin (test code = 02690-3) 3.6 2.3-3.5 [facility] Mainlanderum or plasma albumin/globulin mass rmaah5053-17-68 15:36:00* Test Item Value Reference Range Interpretation Comments Albumin/Globulin Ratio (test code = 1759-0) 1.1 0.8-2.0 [facility] Mainlanderum or plasma alkaline phosphatase measurement (enzymatic activity/volume)2020-05-20 15:36:00* Test Item Value Reference Range Interpretation Comments Alkaline Phosphatase (test code = 6768-6) 54 40-150 [facility] TexasCT ABDOMEN/PELVIS Y5670-95-21 19:36:00 [facility] [address] [place], [place] [id number] Patient Name: NOEMY ARGUETA MR #: [id number] : 1935 Age/Sex: 84/M Req #: [id number] Adm Physician: Ordered by: NIECY ARZOLA MD Rep ort #: [id number] Location: CT Room/B ed: Procedure: [id number] CT/CT ABDOMEN/ PELVIS W Exam Date: 05/12/20 [...] limits set by the [facility]). Dose modulation, iterative reconstruction, and/or weight [...] TO: NIECY ARZOLA MD ABDOMEN-1VIEW (KUB)2020-05-11 18:06:00 [place] [address] Patient Name: NOEMY ARGUETA MR #: [id number] : 1935 Age/Sex: 84/M Req #: [id number] Adm Physician: Ordered by: KLAUDIA ARZOLA MD Report #: [id number] Location: [facility] Room/Bed: Procedure: [id number] DX/ABDOMEN-1VI EW (KUB) Exam Date: 05/11/20 Exam [...] MD Fluoroscopic procedure less than one hour hzvuehhq6396-35-96 19:30:00* Test Item Value Reference Range Interpretation [...] under 564(g) of the ACT.Testing performed by [address] [address]DZBDell [facility] of TexasFluoroscopic procedure less than one hour duration 2020-04-02 [...] under 564(g) of the ACT.Testing performed by [address] [address]LRGDell [facility] of TexasCHEST SINGLE (PORTABLE)2020-04-02 07:07:00 [place] [id number] Patient Name: NOEMY ARGUETA MR #: [id number] : 1935 Age/Sex: 84/M Req #: [id number] Adm Physician: AG JACOBSEN MD Ordered by: ANITHA POLANCO MD, MD Report #: [id number] Location: [facility]/Bed: [place] [address] Procedure: [id number] DX/CHEST SI NGLE (PORTABLE) Exam Date: 04/02/20 [...] Kinase (test code = 2157-6) 127 30-200 [facility] Mainlanderum or plasma creatine kinase MB measurement (mass/volume)2020-04-02 07:01:00* Test Item Value Reference Range Interpretation Comments Creatine Kinase MB (test code = 67940-1) 2.00 0-5.0 [facility] TexasTroponin I measurement by highly sensitive enzyme vypdmvuabbd8347-70-10 07:01:00* Test Item Value Reference Range Interpretation Comments Troponin I (test code = 42932-5) 0.003 0-0.300 [facility] Mainlanderum or plasma creatine kinase measurement (enzymatic activity/volume)2020-04-02 07:01:00* Test Item Value Reference Range Interpretation Comments Creatine Kinase (test code = 2157-6) 127 30-200 [facility] Mainlanderum or plasma creatine kinase MB measurement (mass/volume)2020-04-02 07:01:00* Test Item Value Reference Range Interpretation Comments Creatine Kinase MB (test code = 46588-3) 2.00 0-5.0 [facility] TexasTroponin I measurement by highly sensitive enzyme wcrftlwxygk6561-75-73 07:01:00* Test Item Value Reference Range Interpretation Comments Troponin I (test code = 16238-0) 0.003 0-0.300 [facility] TexasCT BRAIN QS1425-19-98 11:20:00 [place] [address] Patient Name: NOEMY ARGUETA MR #: [id number] : 1935 Age/Sex: 84/M Req #: [id number] Adm Physician: Ordered by: COLLIN BRANNON, ANITHA BRANNON Report #: [id number] Location: [facility] m/Bed: Procedure: CT/CT BRAIN WO Exam Date: 04/01/20 Exam [...] TO: ANITHA POLANCO CHEST SINGLE (PORTABLE)2020-04-01 11:17:00 [place] [address] Patient Name: NOEMY ARGUETA MR #: [id number] : 1935 Age/Sex: 84/M Req #: [id number] Adm Physician: Ordered by: ANITHA POLANCO MD, MD Report #: [id number] Location: ER Room/Bed: Procedure: [id number] DX/CHEST SI NGLE (PORTABLE) Exam Date: 04/01/20 Exam Time: 1025 REPORT STATUS: Signed EXAMINATIO N: CHEST SINGLE (PORTABLE) INDICATION: Y ERMD ORDER [id number] Y COMPARISON: 03/13/2020 FINDINGS: AP view TUBES [...] (PT) in platelet poor plasma by coagulation lqdqc1382-36-81 10:15:00* Test Item Value Reference Range Interpretation Comments Prothrombin Time (test code = 5902-2) 14.3 11.9-14.5 [facility] of TexasINR in Platelet poor plasma by Coagulation sdhoe1343-07-64 10:15:00* Test Item Value Reference Range Interpretation Comments Prothromb Time International Ratio (test code = 6301-6) 1.05 Oral Anticoagulant Therapy INR Values:1. Low Intensity Therapy 1.5 - 2.02 . Moderate Intensity Therapy 2.0 - 3.03. High Intensity Therapy(1) 2.5 - 3. 54. High Intensity Therapy(2) 3.0 - 4.05. Panic Value INR > 5.0 [facility] TexasActivated partial thromboplastin time (aPTT) in platelet poor plasma by coagulation bfvco9649-81-44 10:15:00* Test Item Value Reference Range Interpretation Comments Activated Partial Thromboplast Time (test code = 07057-6) 30.2 23.8-35.5 [facility] TexasFluoroscopic procedure less than one hour vjkgbfkz7258-37-88 10:15:00* Test Item Value Reference Range Interpretation Comments Lactic Acid Level (test code = Lactic Acid Level) 1.5 0.5- 2.0 [facility] TexasBNP Bhp-yTqw7389-11-03 10:15:00* Test Item Value Reference Range Interpretation Comments B-Type Natriuretic Peptide (test code = 96901-6) 32.1 0-100 [facility] Mainlanderum or plasma thyrotropin measurement by detection limit <= 0.005 miu/l (units/volume)2020-04-01 10:15:00* Test Item Value Reference Range Interpretation Comments Thyroid Stimulating Hormone (TSH) (test code = 24045-9) 1.327 0.350-4.940 [facility] TexasBlood ylwdeux1464-00-47 10:15:00* Test Item Value Reference Range Interpretation Comments Blood Culture (test code = 50992399) NO GROWTH AFTER 5 DAYS, FINAL REPORT [facility] TexasProthrombin time (PT) in platelet poor plasma by coagulation pclsh3206-86-26 10:15:00* Test Item Value Reference Range Interpretation Comments Prothrombin Time (test code = 5902-2) 14.3 11.9-14.5 [facility] TexasINR in Platelet poor plasma by Coagulation bdcss0285-41-60 10:15:00* Test Item Value Reference Range Interpretation Comments Prothromb Time International Ratio (test code = 6301-6) 1.05 Oral Anticoagulant Therapy INR Values:1. Low Intensity Therapy 1.5 - 2.02 . Moderate Intensity Therapy 2.0 - 3.03. High Intensity Therapy(1) 2.5 - 3. 54. High Intensity Therapy(2) 3.0 - 4.05. Panic Value INR > 5.0 [facility] TexasActivated partial thromboplastin time (aPTT) in platelet poor plasma by coagulation vmwlu4630-69-70 10:15:00* Test Item Value Reference Range Interpretation Comments Activated Partial Thromboplast Time (test code = 84785-6) 30.2 23.8-35.5 [facility] TexasFluoroscopic procedure less than one hour zfswfwje1357-01-84 10:15:00* Test Item Value Reference Range Interpretation Comments Lactic Acid Level (test code = Lactic Acid Level) 1.5 0.5- 2.0 [facility] TexasBNP Vtz-vAqo7862-72-03 10:15:00* Test Item Value Reference Range Interpretation Comments B-Type Natriuretic Peptide (test code = 61431-0) 32.1 0-100 [facility] Mainlanderum or plasma thyrotropin measurement by detection limit <= 0.005 miu/l (units/volume)2020-04-01 10:15:00* Test Item Value Reference Range Interpretation Comments Thyroid Stimulating Hormone (TSH) (test code = 04752-0) 1.327 0.350-4.940 [facility] TexasBlood pckeido8882-93-62 10:15:00* Test Item Value Reference Range Interpretation Comments Blood Culture (test code = 84090025) NO GROWTH AFTER 5 DAYS, FINAL REPORT [facility] TexasCHEST SINGLE (PORTABLE)2020-03-13 18:24:00 [facility] [address] [place] [address] Patient Name: NOEMY ARGUETA MR #: [id number] : 1935 Age/Sex: 84/M Req #: [id number] Adm Physician: Ordered by: PER AU MD Report #: [id number] Location: ER Room/Bed: Procedure: [id number] DX/CHEST SINGLE (PORTABLE) Exam Date: 03/13/20 Exam [...] Interpretation Comments Bedside Glucose (test code = 20714-1) 123 70-120 H Meter ID: [id number] [facility] PasoClumped Platelets 2019-05-15 08:26:00* Test Item Value Reference Range Interpretation Comments Clumped Platelets (test code = 7796-6) NONE NONE [facility] Mainlandodium Prpsa9800-90-50 05:59:00* Test Item Value Reference Range Interpretation Comments Sodium Level (test code = 2951-2) 141 136-145 [facility] TexasPotassium Bknlq2236-23-18 05:59:00* Test Item Value Reference Range Interpretation Comments Potassium Level (test code = 2823-3) 3.4 3.5-5.1 L [facility] TexasChloride Oiygg3306-12-85 05:59:00* Test Item Value Reference Range Interpretation Comments Chloride Level (test code = 2075-0) 110 98-107 H [facility] TexasCarbon Dioxide Gabvl3179-37-40 05:59:00* Test Item Value Reference Range Interpretation Comments Carbon Dioxide Level (test code = 2028-9) 23 22-29 [facility] TexasAnion Rlc0743-78-20 05:59:00* Test Item Value Reference Range Interpretation Comments Anion Gap (test code = 86959-1) 11.4 8-16 [facility] TexasBlood Urea Ffwcyemg2277-45-31 05:59:00* Test Item Value Reference Range Interpretation Comments Blood Urea Nitrogen (test code = 3094-0) 15 7-26 [facility] TexasCreatinine2019-08-16 05:59:00* Test Item Value Reference Range Interpretation Comments Creatinine (test code = 2160-0) 0.96 0.72-1.25 [facility] TexasBUN/Creatinine Dpxnn5768-80-64 05:59:00* Test Item Value Reference Range Interpretation Comments BUN/Creatinine Ratio (test code = 3097-3) 16 6- [facility] of TexasEstimat Glomerular Filtration Rate 2019-05-15 05:59:00* Test Item Value Reference Range Interpretation Comments Estimat Glomerular Filtration Rate (test code = 570804555) > 60 >60 Ranges were taken from the National Kidney Disease Education Program and the [facility] literature.Reference ranges:60 or greater: Qydetk59-24 ( for 3 consecutive months): Chronic kidney disease 15 or less: Kidney failureD[facility] at The University of TexasGlucose Bnwvt9332-89-42 05:59:00* Test Item Value Reference Range Interpretation Comments Glucose Level (test code = CLU8789) 122 74-118 H [facility] TexasCalcium Gudvq3131-12-76 05:59:00* Test Item Value Reference Range Interpretation Comments Calcium Level (test code = 97919-6) 7.6 8.4-10.2 L [facility] TexasTotal Uoeuzskyf0942-87-13 05:59:00* Test Item Value Reference Range Interpretation Comments Total Bilirubin (test code = 1975-2) 0.3 0.2-1.2 [facility] of TexasAspartate Amino Transf (AST/SGOT) 2019-05-15 05:59:00* Test Item Value Reference Range Interpretation Comments Aspartate Amino Transf (AST/SGOT) (test code = Aspartate Amino Transf (AST/SGOT)) 15 5-34 [facility] TexasAlanine Aminotransferase (ALT/SGPT) 2019-05-15 05:59:00* Test Item Value Reference Range Interpretation Comments Alanine Aminotransferase (ALT/SGPT) (test code = 1742-6) 6 0-55 [facility] TexasTotal Rglhplt2757-76-14 05:59:00* Test Item Value Reference Range Interpretation Comments Total Protein (test code = 2885-2) 4.8 6.5-8.1 L [facility] TexasAlbumin2019-08-16 05:59:00* Test Item Value Reference Range Interpretation Comments Albumin (test code = 1751-7) 2.1 3.5-5.0 L [facility] TexasGlobulin2019-08-16 05:59:00* Test Item Value Reference Range Interpretation Comments Globulin (test code = 79307-6) 2.7 2.3-3.5 [facility] TexasAlbumin/Globulin Qizfo4565-37-39 05:59:00 * Test Item Value Reference Range Interpretation Comments Albumin/Globulin Ratio (test code = 1759-0) 0.8 0.8-2.0 [facility] TexasAlkaline Tbrnjvjbunp6078-20-89 05:59:00* Test Item Value Reference Range Interpretation Comments Alkaline Phosphatase (test code = 6768-6) 56 40-150 [facility] TexasWhite Blood Ecozc5967-91-55 05:58:00* Test Item Value Reference Range Interpretation Comments White Blood Count (test code = 6690-2) 7.18 4.8-10.8 [facility] TexasRed Blood Ciach4384-16-81 05:58:00* Test Item Value Reference Range Interpretation Comments Red Blood Count (test code = 789-8) 3.55 4.3-5.7 L [facility] TexasHemoglobin2019-08-16 05:58:00* Test Item Value Reference Range Interpretation Comments Hemoglobin (test code = 48621-1) 10.7 14.0-18.0 L [facility] TexasHematocrit2019-08-16 05:58:00* Test Item Value Reference Range Interpretation Comments Hematocrit (test code = 4544-3) 32.4 38.2-49.6 L [facility] TexasMean Corpuscular Yalzzo3989-91-40 05:58:00* Test Item Value Reference Range Interpretation Comments Mean Corpuscular Volume (test code = 787-2) 91.3 81-99 [facility] TexasMean Corpuscular Obhsysunyi2557-34-87 05:58:00* Test Item Value Reference Range Interpretation Comments Mean Corpuscular Hemoglobin (test code = 785-6) 30.1 28-32 [facility] TexasMean Corpuscular Hemoglobin Concent 2019-05-15 05:58:00* Test Item Value Reference Range Interpretation Comments Mean Corpuscular Hemoglobin Concent (test code = 786-4) 33.0 31-35 [facility] TexasRed Cell Distribution Ypwbu6390-25-32 05:58:00* Test Item Value Reference Range Interpretation Comments Red Cell Distribution Width (test code = 59518-9) 13.7 11.7 -14.4 [facility] TexasPlatelet Wabzy3313-40-15 05:58:00* Test Item Value Reference Range Interpretation Comments Platelet Count (test code = 777-3) 134 140-360 L [facility] TexasNeutrophils (%) (Auto)2019-05-15 05:58:00 * Test Item Value Reference Range Interpretation Comments Neutrophils (%) (Auto) (test code = 33311-3) 68.2 38.7-80.0 [facility] TexasLymphocytes (%) (Auto)2019-05-15 05:58:00 * Test Item Value Reference Range Interpretation Comments Lymphocytes (%) (Auto) (test code = 736-9) 19.8 18.0-39.1 [facility] TexasMonocytes (%) (Auto)2019-05-15 05:58:00* Test Item Value Reference Range Interpretation Comments Monocytes (%) (Auto) (test code = 5905-5) 9.9 4.4-11.3 [facility] TexasEosinophils (%) (Auto)2019-05-15 05:58:00 * Test Item Value Reference Range Interpretation Comments Eosinophils (%) (Auto) (test code = 713-8) 1.3 0.0-6.0 [facility] TexasBasophils (%) (Auto)2019-05-15 05:58:00* Test Item Value Reference Range Interpretation Comments Basophils (%) (Auto) (test code = 706-2) 0.4 0.0-1.0 [facility] of TexasIM GRANULOCYTES %2019-05-15 05:58:00* Test Item Value Reference Range Interpretation Comments IM GRANULOCYTES % (test code = IM GRANULOCYTES %) 0.4 0.0- 1.0 [facility] TexasNeutrophils # (Auto)2019-05-15 05:58:00* Test Item Value Reference Range Interpretation Comments Neutrophils # (Auto) (test code = 751-8) 4.9 2.1-6.9 [facility] TexasLymphocytes # (Auto)2019-05-15 05:58:00* Test Item Value Reference Range Interpretation Comments Lymphocytes # (Auto) (test code = 71606-6) 1.4 1.0-3.2 [facility] [place] # (Auto[place]2019-05-15 05:58:00* Test Item Value Reference Range Interpretation Comments Monocytes # (Auto) (test code = 742-7) 0.7 0.2-0.8 [facility] TexasEosinophils # (Auto)2019-05-15 05:58:00* Test Item Value Reference Range Interpretation Comments Eosinophils # (Auto) (test code = 711-2) 0.1 0.0-0.4 [facility] TexasBasophils # (Auto)2019-05-15 05:58:00* Test Item Value Reference Range Interpretation Comments Basophils # (Auto) (test code = 704-7) 0.0 0.0-0.1 [facility] TexasAbsolute Immature Granulocyte (auto 2019-05-15 05:58:00* Test Item Value Reference Range Interpretation Comments Absolute Immature Granulocyte (auto (faye t code = Absolute Immature Granulocyte (auto) 0.03 0-0.1 [facility] TexasBlood Yvwezzd2789-65-90 23:56:00* Test Item Value Reference Range Interpretation Comments Blood Culture (test code = 69600678) NO GROWTH AFTER 24 HOURS [facility] TexasHIPS BILAT TWO VWS(+/- PELVIS)2019-05-14 17:32:00 [place] [address] Patient Name: NOEMY ARGUETA MR #: [id number] : 1935 Age/Sex: 83/M Req #: [id number] [facility] Physician: HAZEL SHAW MD Ordered by: HAZEL SHAW MD Report #: [id number] Location: [facility] Room/Bed: [facility] Procedure: 4775-0068 D X/HIPS BILAT TWO VWS(+/- PELVIS) Exam [...] 173 3 Transcribed By: APOORVA on 05/14/19 2893 COPY TO: HAZEL SHAW MD Creatine Kinase OK9836-04-08 09:00:00* Test Item Value Reference Range Interpretation Comments Creatine Kinase MB (test code = 55179-5) 5.60 0-5.0 H [facility] TexasTroponin [id number] 09:00:00* Test Item Value Reference Range Interpretation Comments Troponin I (test code = VGW6031) 0.015 0-0.300 [facility] TexasCreatine Iwgcdx5896-43-17 08:35:00* Test Item Value Reference Range Interpretation Comments Creatine Kinase (test code = 2157-6) 257 30-200 H [facility] TexasUrine BWF4218-81-11 03:56:00* Test Item Value Reference Range Interpretation Comments Urine WBC (test code = 5821-4) 0-5 0-5 [facility] TexasUrine KRJ6135-46-79 03:56:00* Test Item Value Reference Range Interpretation Comments Urine RBC (test code = 38435-2) 0-5 0-5 [facility] TexasUrine Bjabctyg9678-88-27 03:56:00* Test Item Value Reference Range Interpretation Comments Urine Bacteria (test code = 24058-0) RARE NONE [facility] TexasUrine Epithelial Oggsi4572-61-22 03:56:00 * Test Item Value Reference Range Interpretation Comments Urine Epithelial Cells (test code = 38698-1) FEW NONE [facility] TexasUrine Rtqpi4960-19-38 03:50:00* Test Item Value Reference Range Interpretation Comments Urine Color (test code = 5778-6) YELLOW YELLOW [facility] TexasUrine Rrgkfyk0705-49-18 03:50:00* Test Item Value Reference Range Interpretation Comments Urine Clarity (test code = 21296-8) CLEAR CLEAR [facility] Specific Clmyxvw5058-07-68 03:50:00 * Test Item Value Reference Range Interpretation Comments Urine Specific [place] (test code = 5811-5) <=1.005 1.010-1.02 5 [facility] TexasUrine nT0911-47-54 03:50:00* Test Item Value Reference Range Interpretation Comments Urine pH (test code = 20435-2) 6 5-7 [facility] Leukocyte Hcywnvqg4991-24-39 03:50:00* Test Item Value Reference Range Interpretation Comments Urine Leukocyte Esterase (test code = 21621-1) NEGATIVE NEGATIV E [facility] Cghsxis9249-39-57 03:50:00* Test Item Value Reference Range Interpretation Comments Urine Nitrite (test code = 53096-3) NEGATIVE NEGATIVE [facility] Ujxvcmh1077-62-45 03:50:00* Test Item Value Reference Range Interpretation Comments Urine Protein (test code = 17350-1) NEGATIVE NEGATIVE [facility] Glucose (UA)2019-05-14 03:50:00* Test Item Value Reference Range Interpretation Comments Urine Glucose (UA) (test code = 84138-1) NEGATIVE NEGATIVE [facility] Deglvrs7114-35-36 03:50:00* Test Item Value Reference Range Interpretation Comments Urine Ketones (test code = 94052-0) NEGATIVE NEGATIVE [facility] Krzuhacieuke4584-93-41 03:50:00* Test Item Value Reference Range Interpretation Comments Urine Urobilinogen (test code = 24708-6) 0.2 0.2-1 [facility] Vvcfyhudn4510-83-51 03:50:00* Test Item Value Reference Range Interpretation Comments Urine Bilirubin (test code = 1977-8) NEGATIVE NEGATIVE [facility] Eiwbj5825-95-46 03:50:00* Test Item Value Reference Range Interpretation Comments Urine Blood (test code = 72709-8) NEGATIVE NEGATIVE [facility] TexasUrine Opiates Ecobaq4848-25-22 03:49:00* Test Item Value Reference Range Interpretation Comments Urine Opiates Screen (test code = 77131-9) POSITIVE NEGATIVE H ALL TESTS PERFORMED MANUALLY ON [employer] TOX/SEE TEST This test provides only a sc reen. Positive results should be repeated by a confirmatory test.[facility] TexasUrine Barbiturates Pvtolr8594-95-22 03:49:00* Test Item Value Reference Range Interpretation Comments Urine Barbiturates Screen (test code = 815423583) NEGATIVE NEGA TIVE [facility] TexasU[facility] Phencyclidine Koskbc9603-40-70 03:49:00* Test Item Value Reference Range Interpretation Comments Urine Phencyclidine Screen (test code = 78055-9) NEGATIVE NEGAT VALNETINE [facility] TexasU[facility] Amphetamines Mcxnix8278-87-81 03:49:00* Test Item Value Reference Range Interpretation Comments Urine Amphetamines Screen (test code = 00774-1) NEGATIVE NEGATI VE [facility] TexasU[facility] Methamphetamines Jvhonc6194-21-95 03:49:00* Test Item Value Reference Range Interpretation Comments Urine Methamphetamines Screen (test code = Urine Metha mphetamines Screen) NEGATIVE NEGATIVE [facility] TexasU[facility] Benzodiazepines Sfhqqw5217-00-13 03:49:00* Test Item Value Reference Range Interpretation Comments Urine Benzodiazepines Screen (test code = 48653-5) POSITIVE NEG ATIVE H This test provides only a screen. Positive results should be repeated by a confi rmatory test.[facility] TexasUrine Cocaine Screen 2019-05-14 03:49:00* Test Item Value Reference Range Interpretation Comments Urine Cocaine Screen (test code = 3398-5) NEGATIVE NEGATIVE [facility] Cannabinoids Brlcpt2817-09-32 03:49:00* Test Item Value Reference Range Interpretation Comments Urine Cannabinoids Screen (test code = 29537-5) NEGATIVE NEGATI VE THESE RESULTS ARE FOR MEDICAL TREATMENT ONLYTHIS REPORT CONTAINS UNCONFIR MED SCREENING RESULTS*POSITIVE RESULTS WILL BE CONFIRMED BY REFERENCE LAB UPON R EQUEST CUT-OFFDRUG CLASS CONCENTRATION ng/mLAmphetamines 1000Methamphetamines 1000Cocaine 300Opiate 300Phencyc lidine 25Cannabinoid 50Barbiturates 300Benzodiazepine 300Methadone 300[facility] Methadone Edaflx2457-22-54 03:49:00* Test Item Value Reference Range Interpretation Comments Urine Methadone Screen (test code = 74001-8) NEGATIVE NEGATIVE THESE RESULTS ARE FOR MEDICAL TREATMENT ONLYTHIS REPORT CONTAINS UNCONFIR MED SCREENING RESULTS*POSITIVE RESULTS WILL BE CONFIRMED BY REFERENCE LAB UPON R EQUEST CUT-OFFDRUG CLASS CONCENTRATION ng/mLAmphetamines 1000Methamphetamines 1000Cocaine Metabolite 300Opiate 300Phencyc lidine 25Cannabinoid 50Barbiturates 300Benzodiazepine 300Methadone 300[facility] PasoCT CERVICAL SPINE VV6286-06-00 00:55:00 [facility] [address] [place] [address] Patient Name: NOEMY ARGUETA MR #: [id number] : 1935 Age/Sex: 83/M Req #: [id number] Adm Physician: Ordered by: CINDY BURROWS MD Report #: [id number] Location: ER Room/Bed: Procedure: 43 CT/CT CERVICAL [...] foraminal stenosis. . IMPRESSION: 1. No ac [place] cervical spine fracture or dislocation. Reversal of [...] on 05/14/1999 COPY TO: CINDY BURROWS MD [facility] (PORTABLE) 2019-05-14 00:53:00 [place] [address] Patient Name: NOEMY ARGUETA MR #: [id number] : 1935 Age/Sex: 83/M Req #: [id number] Adm Physician: Ordered by: CINDY BURROWS MD Report #: [id number] Location: ER Room/Bed: Procedure: 60 DX/CHEST SINGLE [...] rib fractures. Signed by: Dr. Shyam Rodríguez DChazO., M.M.M. on 05/14/2019 12:58 AM Dictated By: SHYAM RODRÍGUEZ DO COPY TO: CINDY BURROWS MD CT BRAIN [id number] 00:47:00 [place] [address] Patient Name: NOEMY ARGUETA MR #: [id number] : 1935 Age/Sex: 83/M Req #: [id number] Adm Physician: Ordered by: CINDY BURROWS MD Report #: [id number] Location: ER Room/Bed: Procedure: 08[address] CT/CT BRAIN WO Exam Date: Exam [...] COPY TO: CINDY BURROWS MD Lactic Acid Yljhk7965-22-91 00:36:00* Test Item Value Reference Range Interpretation Comments Lactic Acid Level (test code = Lactic Acid Level) 18.7 4.5- 19.8 [facility] PasoCHES 2 WKCHH2120-18-92 17:12:00 [facility] [address] [place] [address] Patient Name: NOEMY ARGUETA MR #: [id number] : 1935 Age/Sex: 83/M Req #: [id number] Adm Physician: Ordered by: ELMIRA HUGHES MD Report #: [id number] Location: OR Room/Bed: Procedure: DX/CH EST 2 [...] on 03/11/191718 COPY TO: ELMIRA HUGHES MD [id number] 17:11:00* Test Item Value Reference Range Interpretation Comments GLUBED (test code = GLUBED) 98 mg/dL 74-106 N Performed by certified suction drum drier [facility]~ MLUKQM9283-88-06 12:12:00* Test Item Value Reference Range Interpretation Comments GLUBED (test code = GLUBED) 163 mg/dL 74-106 H Performed by certified suction drum drier operator [facility]~ XJQBJY9890-20-97 08:00:00* Test Item Value Reference Range Interpretation Comments GLUBED (test code = GLUBED) 90 mg/dL 74-106 N Performed by certified suction drum drier operator [facility]~ BASIC METABOLIC NIWKV0868-61-01 05:35:00* Test Item Value Reference Range Interpretation [...] CK) 2348 IUnit/L 26-208 H BASIC METABOLIC PQETU9714-71-62 05:16:00* Test Item Value Reference Range Interpretation [...] (CK) (test code = CK) IUnit/L 26-208 FJDPUI5767-26-69 20:59:00* Test Item Value Reference Range Interpretation Comments GLUBED (test code = GLUBED) 125 mg/dL 74-106 H Performed by certified suction drum drier operator [facility] DVBIPK6927-95-85 16:45:00* Test Item Value Reference Range Interpretation Comments GLUBED (test code = GLUBED) 107 mg/dL 74-106 H Performed by certified suction drum drier operator [facility]~ URINALYSIS OWTVULXX3722-31-53 13:53:00* Test Item Value Reference Range Interpretation [...] FEW #/HPF NONE Urine Source? Clean CatchURINALYSIS QSNTKJAG8774-91-20 13:49:00* Test Item Value Reference Range Interpretation [...] BACU) per HPF NONE Urine Source? Clean LwelmDNTVVP8982-77-81 12:47:00* Test Item Value Reference Range Interpretation Comments GLUBED (test code = GLUBED) 114 mg/dL 74-106 H Performed by certified suction drum drier operator [facility]~ ESWVWD4327-21-96 08:17:00* Test Item Value Reference Range Interpretation Comments GLUBED (test code = GLUBED) 96 mg/dL 74-106 N Performed by certified suction drum drier operator [facility] BASIC METABOLIC GXBYX5127-50-57 08:12:00* Test Item Value Reference Range Interpretation [...] CK) 5208 IUnit/L 26-208 H BASIC METABOLIC QUYSI7758-64-46 07:39:00* Test Item Value Reference Range Interpretation [...] (CK) (test code = CK) IUnit/L 26-208 [id number] 21:50:00* Test Item Value Reference Range Interpretation Comments GLUBED (test code = GLUBED) 117 mg/dL 74-106 H Performed by certified suction drum drier operator at [facility] - CT L-SPINE W/O CJDUMDAX3224-08-64 19:37:00 Name: NOEMY ARGUETA [facility] : 1935 Age[facility]S: 83 / M [address] [facility]: [id number] Loc: [place] [address] Phys: Shannon Corey MD Acct: [id number] Dis Date: Status: ADM IN PHONE #: [phone] Exam Date: 01/21/2019 191 FAX #: [phone] Reason: H/o fall EXAMS: CPT CODE: [id number] CT L-SPINE W/O CONTRAST 20851 REASON FOR EXAM: H/o fall EXAM ORDER DATE: 01/21/2019 1:48 PM Ordering MBrisa: Shannon Corey MD PROCEDURE: - CT L-SPINE [...] CT CTDI: DLP: Trnscb Date/Time: 01/21/2019 (1936) [email or web address] Orig Print D/T: S: 01/21/2019 (1940) CTDI: DLP: PAGE 1 Signed Report - CT T-SPINE W/O CONTRAST 2019-01-21 19:35:00 Name: NOEMY ARGUETA [facility] : 1935 Age/S: 83 / M [address] [facility] Unit #: [id number] [place] [address] Phys: Shannon Corey MD Acct: [id number] Dis Date: Status: ADM IN PHONE #: [phone] Exam Date: 01/21/20191918 FAX #: [phone] Reason: H/o fall EXAMS: CPT CODE: [id number] CT T-SPINE W/O CONTRAST 52233 REASON FOR EXAM: H/o fall EXAM ORDER DATE: 01/21/2019 1:48 PM Ordering MBrisa: Shannon Corey MD PROCEDURE: - CT T-SPINE [...] W/O CONTRAST 2019-01-21 19:34:00 Name: NOEMY ARGUETA [facility] : 1935 Age/S: 83 / M [facility] Unit #: [id number] Loc: [place] [address] Phys: Shannon Corey MD Acct: [id number] Dis Date: Status: ADM IN PHONE #: [phone] Exam Date: 01/21/20191918 FAX #: [phone] Reason: H/o fall EXAMS: CPT CODE: [id number] CT C-SPINE W/O CONTRAST 57038 REASON FOR EXAM: H/o fall EXAM ORDER [...] (1936) CTDI: DLP: PAGE 1 Signed Report [id number] 15:53:00* Test Item Value Reference Range Interpretation Comments GLUBED (test code = GLUBED) 120 mg/dL 74-106 H Performed by certified suction drum drier operator at [facility] - XR RIBS UNI W/CXR 3+V [id number] 12:17:00 FAX: Obey De Souza MD [phone] [place]: St: ADM FAX: Y David Porter MD [phone] Name: NOEMY ARGUETA [facility] : 1935 Age/S: 83/M [address] [facility] Unit #: [id number] Loc: [address] [address] Phys: Obey De Souza MD Acct: [id number] Dis Date: Status: ADM IN PHONE #: [phone] Exam Date: 01/20/2019 2255 FAX #: [phone] Reason: rib pain, fall EXAMS: CPT CODE: [id number] XR RIBS UNI W/CXR 3+[place] [address] HISTORY: Pain after fall. COMPARISON: Chest x-ray [...] MD Technologist: RT OLIVIER Trnscrd Date/Time/By: 01/21/2019 ( 17) : By: [email or web address] Orig Print D/T: S: 01/22/2019 (6955) PAGE 1 Signed Report [id number] 12:13:00* Test Item Value Reference Range Interpretation Comments GLUBED (test code = GLUBED) 114 mg/dL 74-106 H Performed by certified suction drum drier operator at [facility] - CT HEAD/BRAIN W/O [id number] 12:02:00 Name: NOEMY ARGUETA [facility] : 1935 Age/S: 83 / M [address] [facility] Unit #: [id number] Loc: [place] [address] Phys: Obey De Souza MD Acct: [id number] Dis Date: Status: ADM IN PHONE #: [phone] Exam Date: 01/20/2019 2300 FAX #: [phone] Reason: fall/AMS EXAMS: CPT CODE: [id number] CT HEAD/BRAIN W/O CONT 54955 HISTORY: Confusion. COMPARISON: None available. CT brain [...] BENITEZ CT CTDI: DLP: Trnscb Date/Time: 01/21/2019 (2902) [email or web address] Orig Print D/T: S: 01/21/2019 (0799) CTDI: DLP: PAGE 1 Signed Report [id number] 07:52:00* Test Item Value Reference Range Interpretation Comments GLUBED (test code = GLUBED) 100 mg/dL 74-106 N Performed by certified suction drum drier operator at [facility] BASIC METABOLIC [id number] 23:39:00* Test Item Value Reference Range Interpretation [...] CK) 7841 IUnit/L 26-208 H BASIC METABOLIC CIFSP0542-02-14 23:09:00* Test Item Value Reference Range Interpretation [...] code = CK) IUnit/L 26-208 BASIC METABOLIC [id number] 23:02:00* Test Item Value Reference Range Interpretation [...] code = CK) IUnit/L 26-208 CBC W/AUTO [id number] 22:47:00* Test Item Value Reference Range Interpretation [...] (test code = MDIFF) NO CBC W/AUTO [id number] 22:39:00* Test Item Value Reference Range Interpretation [...] BA#) K/mm3 0.0-0.2 XR RIBS UNILATERAL/ PA [id number] 14:04:37Procedures: XR RIBS UNILATERAL/ PA CHESTExam Date: [...] By: AG WATSONDate: 02/23/2018 14:04MRI BRAIN WO [place] [address] Patient Name: NOEMY ARGUETA MR #: [id number] : 1935 Age/Sex: 82/M Req #: [id number] Adm Physician: KLAUDIA ARZOLA MD Ordered by: CARISSA ROSAS MD Report #: [id number] Location: [facility] Room/Bed: [place] [address] Procedure: 4043-5326 MRI /MRI BRAIN WO Exam Date: 06/28/17 [...] TO: CARISSA ROSAS MD CHEST SINGLE (PORTABLE) [place] [address] Patient Name: NOEMY ARGUETA MR #: [id number] : 1935 Age/Sex: 82/M Req #: [id number] Adm Physician: Ordered by: ABEL DE LEÓN Report #: [id number] Location: ER Room/Bed: Procedure: 4351-0702 DX/CHEST SINGLE (PORTABLE) Ex am Date: 06/28/17 [...] TO: ABEL DE LEÓN CT BRAIN WO [place] [address] Patient Name: NOEMY ARGUETA MR #: [id number] : 1935 Age/Sex: 82/M Req #: [id number] Adm Physician: Ordered by: ABEL DE LEÓN Report #: [id number] Location: ER Room/Bed: Procedure: 4210-2110 CT/CT BRAIN WO Exam Date: Exam Time: [...] TO: SALTY DE LEÓN CT BRAIN WO [place] [address] Patient Name: NOEMY ARGUETA MR #: [id number] : 1935 Age/Sex: 82/M Req #: [id number] Adm Physician: Ordered by: MELANIE PRAKASH MD Report #: [id number] Location: Room/Bed: Procedure: 7680-1137 CT/CT BRAIN WO Exam Date: Exam Time: [...]
[2020-06-08 22:20] VITALS: BP 141/76
[2020-06-08] MEDS: SODIUM CHLORIDE 0.9% 1000ML 1,000 ML IV SCH (23:09)
[2020-06-09] VITALS (8 sets, daily range): BP systolic 97–141; BP diastolic 61–87
[2020-06-09 00:48] LABS: ALANINE AMINOTRANSFERASE 11 IU/L (0-55); ALBUMIN 3.5 g/dL (3.5-5.0); ALBUMIN/GLOBULIN RATIO 1.6 (0.8-2.0); ALKALINE PHOSPHATASE 51 IU/L (40-150); AMYLASE 33 U/L (25-125); ANION GAP 9.5 mmol/L (8-16); BLOOD UREA NITROGEN 8 mg/dL (7-26); BUN/CREATININE RATIO 8 (6-25); CALCIUM 8.5 mg/dL (8.4-10.2); CARBON DIOXIDE 27 mmol/L (22-29); CHLORIDE 107 mmol/L (98-107); CREATININE, SERUM 1.06 mg/dL (0.72-1.25); EST GLOMERULAR FILTRATION RATE > 60 ML/MIN (60-); GLUCOSE 116 mg/dL (74-118); LIPASE 15 U/L (8-78); POTASSIUM 3.5 mmol/L (3.5-5.1); SODIUM 140 mmol/L (136-145)
--- NOTE | 2020-06-09 01:00 | NUR ---
RECEIVED PATIENT FROM EMS IN STABLE CONDITION, NO SIGNS OF DISTRESS NOTED. IV FLUIDS ARE RUNNING AT ORDERED RATE, PATIENT VOICES NO PAIN AT THIS TIME. BED IS IN LOWEST POSITION, BOTH SIDE RAILS ARE UP, CALL LIGHT IS WITHIN EASY REACH, WILL CONTINUE TO MONITOR.
[2020-06-09] MEDS: METOCLOPRAMIDE HCL 10 MG/2ML VIAL IV SCH ×4 (01:08→17:18)
[2020-06-09] MEDS: PANTOPRAZOLE 40 MG 10ML VIAL IV SCH ×2 (01:08→12:00)
[2020-06-09] MEDS: SODIUM CHLORIDE 0.9% 1000ML 1,000 ML IV SCH ×2 (06:32→13:30)
--- NOTE | 2020-06-09 07:10 | NUR ---
RCD PT AT BED PT IS ALERT AND ORIENTED RESTING ON BED IV PATENT BY SALINE FLUSH BED LOW AND LOCKED CALL LIGHT IN REACH
[2020-06-09 07:23] LABS: BILIRUBIN,URINE NEGATIVE (NEGATIVE); CLARITY,URINE CLEAR (CLEAR); COLOR,URINE YELLOW (YELLOW); KETONES,URINE NEGATIVE (NEGATIVE); LEUKOCYTE ESTERASE ,URINE NEGATIVE (NEGATIVE); NITRITE,URINE NEGATIVE (NEGATIVE); PROTEIN,URINE DIPSTICK NEGATIVE (NEGATIVE); URINE UROBILINOGEN 0.2 mg/dL (0.2 - 1)
[2020-06-09 07:28] LABS: BACTERIA,URINE RARE /HPF; EPITHELIAL CELLS,URINE RARE /LPF; WBC,URINE (MAN) 0-5 /HPF (0-5)
--- NOTE | 2020-06-09 09:52 | NUR ---
PT C/O HEAD ACHE AND HE NEED SOME SOLID FOOD PAGED DR Benigno ARZOLA TO NOTIFY THAT
--- NOTE | 2020-06-09 09:59 | NUR ---
DR ARZOLA RETURNED THE CALL AND GOT NEW ORDERS
[2020-06-09] MEDS ORDERED: ACETAMINOPHEN 325 MG TAB PO PRN (10:00)
[2020-06-09 11:14] LABS: THYROID STIMULATING HORMONE 1.865 uIU/mL (0.350-4.940)
[2020-06-09 11:57] LABS: FREE THYROXINE INDEX 2.7307 (1.4-3.8)
[2020-06-09] MEDS: ONDANSETRON HCL INJ 2MG/ML 2ML 2 MG/ML VIAL IV PRN ×2 (12:36→16:00)
--- NOTE | 2020-06-09 14:00 | NUR ---
PT IS NOT TOLERATING THE GI SOFT DIET HE IS NAUSEATED PAGED AND NOTIFIED DR Benigno ARZOLA GOT THE ORDER TO CHANGE THE DIET IN TO FULL LIQUID DIET
--- NOTE | 2020-06-09 17:11 | NUR ---
Nutrition Screen Note RD Recommendation for Physician: -Recommend advancing to GI soft diet when medically appropriate -If PO intake is <50% of meals, offer Ensure nutrition supplement Plan of Care: RD following, monitoring for tolerance and adequacy Nutrition reason for involvement: Nutrition Risk Trigger Primary Diagnose(s): generalized weakness, nausea PMH: Chronic pain syndrome. Atrial fibrillation. Chronic vertigo. Osteoarthritis. Ht: 72 in Wt:213 lb BMI: 30.1 kg/m2 IBW:[address] Assessment: (06/09/20) Chart reviewed. Labs and meds reviewed. Pt is an 84 year old male admitted with generalized weakness and nausea. Pt reports a decreased appetite but was unable to quantify % meal intake at time of visit. RN stated pt is not eating much at this time. Pt was previously on a GI soft diet but it is noted that pt did not tolerate solids due to nausea. Therefore, pt is now on a full liquid diet. Pt stated he usually weighs 215 lbs; therefore, no significant weight loss is evident. Will continue to monitor. Current Diet: full liquids Malnutrition Evaluation (06/09/20) The patient does not meet criteria for a specified degree of malnutrition at this time. Will re-evaluate at follow-up as appropriate. Diet Education Needs Assessment: Diet education not indicated at this time Nutrition Care Level: low Signed: Elena Smith, RD, LD
[2020-06-09] MEDS ORDERED: ROPINIROLE HCL 0.25 MG TAB PO SCH (18:00)
--- NOTE | 2020-06-09 18:39 | NUR ---
PT RESTING ON BED BED SIDE REPORT GIVEN TO ONCOMING NURSE
[2020-06-09] MEDS ORDERED: DIPHENHYDRAMINE HCL 25 MG CAP PO PRN (21:45)
[2020-06-10] VITALS: BP 140/72
[2020-06-10] MEDS: SODIUM CHLORIDE 0.9% 1000ML 1,000 ML IV SCH ×2 (00:51→05:30)
[2020-06-10] MEDS: PANTOPRAZOLE 40 MG 10ML VIAL IV SCH (01:51)
[2020-06-10] MEDS: METOCLOPRAMIDE HCL 10 MG/2ML VIAL IV SCH ×2 (01:51→06:03)
[2020-06-10 04:00] VITALS: BP 139/80
[2020-06-10 06:12] LABS: BASOPHILS # (AUTO) 0.1 (0.0-0.1); BASOPHILS % 0.8 % (0.0-1.0); EOSINOPHILS # (AUTO) 0.1 (0.0-0.4); EOSINOPHILS % 1.7 % (0.0-6.0); HEMATOCRIT 34.7 % (38.2-49.6); HEMOGLOBIN 11.5 g/dL (14.0-18.0); LYMPHOCYTES # (AUTO) 1.9 (1.0-3.2); LYMPHOCYTES % 32.3 % (18.0-39.1); MEAN CORPUSCULAR HEMOGLOBIN 29.9 pg (28-32); MEAN CORPUSCULAR HGB CONC 33.1 g/dL (31-35); MEAN CORPUSCULAR VOLUME 90.1 fL (81-99); MONOCYTES # (AUTO) 0.7 (0.2-0.8); MONOCYTES % 11.3 % (4.4-11.3); NEUTROPHILS # (AUTO) 3.2 (2.1-6.9); NEUTROPHILS % 53.6 % (38.7-80.0); PLATELET COUNT 144 x10e3/uL (140-360); RED BLOOD COUNT 3.85 x10e6/uL (4.3-5.7); RED CELL DISTRIBUTION WIDTH 13.6 % (11.7-14.4)
[2020-06-10 06:34] LABS: ANION GAP 15.4 mmol/L (8-16); BLOOD UREA NITROGEN 7 mg/dL (7-26); BUN/CREATININE RATIO 7 (6-25); CARBON DIOXIDE 21 mmol/L (22-29); CHLORIDE 110 mmol/L (98-107); CREATININE, SERUM 1.01 mg/dL (0.72-1.25); EST GLOMERULAR FILTRATION RATE > 60 ML/MIN (60-); GLUCOSE 85 mg/dL (74-118); POTASSIUM 3.4 mmol/L (3.5-5.1); SODIUM 143 mmol/L (136-145)
[2020-06-10 08:00] VITALS: BP 148/74
--- NOTE | 2020-06-10 08:18 | NUR ---
CALLED DR. Kinsey ARZOLA'S OFFICE NUMBER, CALL WENT TO ANSWERING SERVICE, SPOKE TO DAMIR REGARDING PATIENT'S POTASSIUM OF 3.4 AND CALCIUM OF 8 FROM THIS MORNING'S LABS.
[2020-06-10] MEDS ORDERED: ATENOLOL 50 MG TAB PO SCH (09:00)
[2020-06-10] MEDS ORDERED: PANTOPRAZOLE SOD 40 MG TABEC PO SCH (09:00)
[2020-06-10] MEDS ORDERED: GABAPENTIN 300 MG CAP PO SCH (09:00)
[2020-06-10 09:19] VITALS: BP 148/74
[2020-06-10] MEDS ORDERED: POTASSIUM CHLORIDE 10MEQ EA PO ONE ×2 (10:10→10:30)
== END 2020-06-10 11:01 | disposition home or self-care (01) ==
LOC: FSED 18:27 → ERHOLD 21:24 → MED/SURG 22:57
DX: R11.2 Nausea with vomiting, unspecified (principal); R10.9 Unspecified abdominal pain; I48.0 Paroxysmal atrial fibrillation; Z79.01 Long term (current) use of anticoagulants; K21.9 Gastro-esophageal reflux disease without esophagitis; Z85.46 Personal history of malignant neoplasm of prostate; M19.90 Unspecified osteoarthritis, unspecified site; G62.9 Polyneuropathy, unspecified; G25.81 Restless legs syndrome; Z11.59 Encounter for screening for other viral diseases; N28.89 Other specified disorders of kidney and ureter; R63.4 Abnormal weight loss; Z68.28 Body mass index [BMI] 28.0-28.9, adult
CPT/HCPCS: 36415 ×3; 71046; 80048; 80053 ×2; 81001; 81003; 82150; 82553; 83690; 84436; 84443; 84479; 84484; 85025 ×2; 93005; 99284; C9113 ×2; G0378 ×3; J2405; J2765 ×3; J7030 ×2; J7050; U0002

== ENCOUNTER 2020-06-22 14:49 | Inpatient (IN) | payer MEDICARE ==
[~2020-06-22] VITALS: Ht 180.3 cm; Wt 103.9 kg
[2020-06-22] MEDS ORDERED: ACETAMINOPHEN 325 MG TAB PO STA (15:22)
--- NOTE | 2020-06-22 15:24 | NUR ---
Pt arrived via EMS with only one hearing aid to left ear. EMS reports neighbor was unable to locate the other hearing aid. Patient present during conversation, also aware that he only arrived with one hearing aid.
[2020-06-22 15:35] LABS: BASOPHILS # (AUTO) 0.1 (0.0-0.1); BASOPHILS % 0.4 % (0.0-1.0); EOSINOPHILS % 0.1 % (0.0-6.0); HEMATOCRIT 37.3 % (38.2-49.6); HEMOGLOBIN 12.5 g/dL (14.0-18.0); LYMPHOCYTES # (AUTO) 1.1 (1.0-3.2); LYMPHOCYTES % 6.4 % (18.0-39.1); MEAN CORPUSCULAR HEMOGLOBIN 30.1 pg (28-32); MEAN CORPUSCULAR HGB CONC 33.5 g/dL (31-35); MEAN CORPUSCULAR VOLUME 89.9 fL (81-99); MONOCYTES # (AUTO) 1.4 (0.2-0.8); MONOCYTES % 8.2 % (4.4-11.3); NEUTROPHILS % 84.2 % (38.7-80.0); PLATELET COUNT 181 x10e3/uL (140-360); RED BLOOD COUNT 4.15 x10e6/uL (4.3-5.7); RED CELL DISTRIBUTION WIDTH 13.4 % (11.7-14.4)
[2020-06-22] MEDS ORDERED: SODIUM CHLORIDE 0.9% 1000ML 1,000 ML IV STA (15:40)
[2020-06-22 15:55] LABS: ALANINE AMINOTRANSFERASE 14 IU/L (0-55); ALBUMIN 3.5 g/dL (3.5-5.0); ALBUMIN/GLOBULIN RATIO 1.4 (0.8-2.0); ALKALINE PHOSPHATASE 50 IU/L (40-150); ANION GAP 14.9 mmol/L (8-16); BLOOD UREA NITROGEN 14 mg/dL (7-26); BUN/CREATININE RATIO 13 (6-25); CARBON DIOXIDE 23 mmol/L (22-29); CHLORIDE 104 mmol/L (98-107); CREATININE, SERUM 1.08 mg/dL (0.72-1.25); EST GLOMERULAR FILTRATION RATE > 60 ML/MIN (60-); GLUCOSE 110 mg/dL (74-118); POTASSIUM 3.9 mmol/L (3.5-5.1); SODIUM 138 mmol/L (136-145)
[2020-06-22 16:50] LABS: INR 1.01; PROTHROMBIN TIME 13.8 seconds (11.9-14.5)
[2020-06-22 16:51] LABS: PARTIAL THROMBOPLASTIN TIME 28.3 seconds (23.8-35.5)
[2020-06-22 17:02] LABS: CREATINE KINASE MB 0.8 ng/mL (0-5.0)
--- NOTE | 2020-06-22 17:09 | Diagnostic Imaging Report ---
EXAMINATION: CHEST SINGLE (PORTABLE) INDICATION: Fever and weakness. COMPARISON: None FINDINGS: TUBES and LINES: None. LUNGS: Normal lung volumes. There is patchy opacity at the bilateral lung bases, right more to left. No focal consolidation. PLEURA: No pleural effusion or pneumothorax. HEART AND MEDIASTINUM: The cardiomediastinal silhouette is unremarkable. There are atherosclerotic calcifications within the aorta. BONES AND SOFT TISSUES: Degenerative changes in the spine and shoulders. Soft tissues are unremarkable. UPPER ABDOMEN: No free air under the diaphragm. IMPRESSION: Patchy opacities in the bilateral lung bases which may represent atelectasis and/or multifocal pneumonia in the proper clinical context. Signed by: Riley Valle MD on 06/22/2020 5:06 PM
--- NOTE | 2020-06-22 18:29 | Emergency Department Note ---
History of Present Illnes History of Present Illness Chief Complaint: General Medicine Complaints History of Present Illness This is a 85 year old male presents with b/l LE weakness. States that he was unable to get up at home. Seen at bedside NAD . 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 Any updates have been documented here. Past Medical History Recent Fever: Yes Clinical Suspicion of Infectio: Yes New/Unexplained Change in Ment: No Past Medical History: A-Fib, Cancer, GERD, Osteoarthritis Other Medical History: VERTIGO RLS NEUROPATHY Ankylosing Spondylitis Past Surgical History: Knee Replacement, Hernia Repair Other Surgery: PILONIDAL CYST REMOVAL Social History Smoking Cessation: Never Smoker Counseling Performed: No Alcohol Use: None Any Illegal Drug Use: No Physically hurt or threatened: No Other Last Tetanus: UTD Any Pre-Existing Lines (PICC,: No Review of Systems Review of Systems Constitutional: Reports weakness EENTM: Reports no symptoms Cardiovascular: Reports no symptoms Respiratory: Reports no symptoms Gastrointestinal: Reports no symptoms Genitourinary: Reports no symptoms Musculoskeletal: Reports no symptoms Integumentary: Reports no symptoms Neurological: Reports no symptoms Psychological: Reports no symptoms Endocrine: Reports no symptoms Hematological/Lymphatic: Reports no symptoms Physical Exam Related Data Allergies: Coded Allergies: latex (Verified Allergy, Unknown, RASH, 06/28/17) Triage Vital Signs Vital Signs Date Time Temp Pulse Resp B/P (MAP) Pulse Ox O2 Delivery O2 Flow Rate FiO2 06/22/20 15:01 102.6 95 20 113/64 98 Room Air Physical Exam CONSTITUTIONAL Constitutional: Present well-developed, Present well-nourished HENT HENT: Present normocephalic, Present atraumatic, Present oropharynx clear/moist, Present nose normal HENT L/R: Present left ext ear normal, Present right ext ear normal EYES Eyes: Reports PERRL, Reports conjunctivae normal NECK Neck: Present ROM normal PULMONARY Pulmonary: Present effort normal, Present breath sounds normal CARDIOVASCULAR Cardiovascular: Present regular rhythm, Present heart sounds normal, Present capillary refill normal, Present normal rate GASTROINTESTINAL Abdominal: Present soft, Present nontender, Present bowel sounds normal GENITOURINARY Genitourinary: Present exam deferred SKIN Skin: Present warm, Present dry MUSCULOSKELETAL Musculoskeletal: Present ROM normal NEUROLOGICAL Neurological: Present alert, Present oriented x 3, Present weakness (b/l LE 4/5) PSYCHOLOGICAL Psychological: Present mood/affect normal, Present judgement normal Results Laboratory Result Diagram: 06/22/20 1519 06/22/20 1519 Laboratory Laboratory Tests Test 06/22/20 15:55 06/22/20 15:19 Erythrocyte Sedimentation Rate 18 mm/hr (0-13) White Blood Count 16.65 x10e3/uL (4.8-10.8) Red Blood Count 4.15 x10e6/uL (4.3-5.7) Hemoglobin 12.5 g/dL (14.0-18.0) Hematocrit 37.3 % (38.2-49.6) Mean Corpuscular Volume 89.9 fL (81-99) Mean Corpuscular Hemoglobin 30.1 pg (28-32) Mean Corpuscular Hemoglobin Concent 33.5 g/dL (31-35) Red Cell Distribution Width 13.4 % (11.7-14.4) Platelet Count 181 x10e3/uL (140-360) Neutrophils (%) (Auto) 84.2 % (38.7-80.0) Lymphocytes (%) (Auto) 6.4 % (18.0-39.1) Monocytes (%) (Auto) 8.2 % (4.4-11.3) Eosinophils (%) (Auto) 0.1 % (0.0-6.0) Basophils (%) (Auto) 0.4 % (0.0-1.0) Neutrophils # (Auto) 14.0 (2.1-6.9) Lymphocytes # (Auto) 1.1 (1.0-3.2) Monocytes # (Auto) 1.4 (0.2-0.8) Eosinophils # (Auto) 0.0 (0.0-0.4) Basophils # (Auto) 0.1 (0.0-0.1) Absolute Immature Granulocyte (auto 0.11 x10e3/uL (0-0.1) Prothrombin Time 13.8 seconds (11.9-14.5) Prothromb Time International Ratio 1.01 Activated Partial Thromboplast Time 28.3 seconds (23.8-35.5) Sodium Level 138 mmol/L (136-145) Potassium Level 3.9 mmol/L (3.5-5.1) Chloride Level 104 mmol/L (98-107) Carbon Dioxide Level 23 mmol/L (22-29) Anion Gap 14.9 mmol/L (8-16) Blood Urea Nitrogen 14 mg/dL (7-26) Creatinine 1.08 mg/dL (0.72-1.25) Estimat Glomerular Filtration Rate > 60 ML/MIN (60-) BUN/Creatinine Ratio 13 (6-25) Glucose Level 110 mg/dL (74-118) Lactic Acid Level 1.4 mmol/L (0.5-2.0) Calcium Level 8.0 mg/dL (8.4-10.2) Total Bilirubin 0.5 mg/dL (0.2-1.2) Aspartate Amino Transf (AST/SGOT) 20 IU/L (5-34) Alanine Aminotransferase (ALT/SGPT) 14 IU/L (0-55) Alkaline Phosphatase 50 IU/L (40-150) Creatine Kinase 26 IU/L (30-200) Creatine Kinase MB 0.80 ng/mL (0-5.0) Troponin I 0.024 ng/mL (0-0.300) B-Type Natriuretic Peptide 42.4 pg/mL (0-100) Total Protein 6.0 g/dL (6.5-8.1) Albumin 3.5 g/dL (3.5-5.0) Globulin 2.5 g/dL (2.3-3.5) Albumin/Globulin Ratio 1.4 (0.8-2.0) Imaging Imaging results reviewed: Yes Impressions [place] [id number] Patient Name: NOEMY ARGUETA MR #: [id number] : 1935 Age/Sex: 85/M Req #: [id number] Adm Physician: Ordered by: PER AU MD Report #: [id number] Location: ER Room/Bed: Procedure: [id number] DX/CHEST SINGLE (PORTABLE) Exam Date: 06/22/20 Exam Time: 1650 REPORT STATUS: Signed EXAMINATION: CHEST SINGLE (PORTABLE) INDICATION: Fever and weakness. COMPARISON: None FINDINGS: TUBES and LINES: None. LUNGS: Normal lung volumes. There is patchy opacity at the bilateral lung bases, right more to left. No focal consolidation. PLEURA: No pleural effusion or pneumothorax. HEART AND MEDIASTINUM: The cardiomediastinal silhouette is unremarkable. There are atherosclerotic calcifications within the aorta. BONES AND SOFT TISSUES: Degenerative changes in the spine and shoulders. Soft tissues are unremarkable. UPPER ABDOMEN: No free air under the diaphragm. IMPRESSION: Patchy opacities in the bilateral lung bases which may represent atelectasis and/or multifocal pneumonia in the proper clinical context. Signed by: Timothy Cervantes MD on 06/22/2020 5:06 PM Dictated By: TIMOTHY CERVANTES MD 05 Transcribed By: APOORVA on 06/22/201705 COPY TO: PER AU MD~ Assessment & Plan Medical Decision Making MDM Diff Dx : SAH, CVA, UTi, Sepsis, hypcalcemia Assessment & Plan Final Impression: (1) Pneumonia (2) Generalized weakness Last Vital Signs Date Time Temp Pulse Resp B/P (MAP) Pulse Ox O2 Delivery O2 Flow Rate FiO2 06/22/20 17:03 99.4 81 20 100/55 98 Room Air Home Meds Reported Medications [Smz/Tmp] No Conflict Check 04/02/20 [Ondansetron] No Conflict Check 04/02/20 Chlordiazepoxide Hcl (CHLORDIAZEPOXIDE HCL) 10 Mg Capsule 04/02/20 Acetaminophen With Codeine (ACETAMINOPHEN-CODEINE ELIXIR) 118 Ml Elixir 04/02/20 Spironolactone (SPIRONOLACTONE) 25 Mg Tablet 04/02/20 Gabapentin (GABAPENTIN) 600 Mg Tablet, 600 MG PO DAILY 04/02/20 Azithromycin (Z-SHERRON) 250 Mg Tablet, 250 MG PO UD, #1 UDPKT Z-Pack 05/15/19 Pantoprazole Sodium* (PROTONIX) 40 Mg Tablet.dr, 40 MG PO DAILY 05/14/19 Atenolol (ATENOLOL) 50 Mg Tablet, 50 MG PO DAILY 05/09/17 Medications in the ED Acetaminophen 650 mg ONCE STAT PO Last administered on 06/22/20at 16:03; Admin Dose 650 MG; Start 06/22/20 at 15:22; Stop 06/22/20 at 15:27; Status DC Sodium Chloride 1,000 ml @ 0 mls/hr Q0M STAT IV Last administered on 06/22/20at 16:03; Admin Dose 999 MLS/HR; Start 06/22/20 at 15:40; Stop 06/22/20 at 15:43; Status DC STACEY JACOBSEN DO Jun 22, 2020 18:29
[2020-06-22] MEDS ORDERED: SODIUM CHLORIDE 0.9% 1000ML 1,000 ML IV SCH (18:45)
[2020-06-22 19:24] LABS: CLARITY,URINE CLEAR (CLEAR); COLOR,URINE YELLOW (YELLOW); KETONES,URINE NEGATIVE (NEGATIVE); LEUKOCYTE ESTERASE ,URINE NEGATIVE (NEGATIVE); NITRITE,URINE NEGATIVE (NEGATIVE); PROTEIN,URINE DIPSTICK NEGATIVE (NEGATIVE); URINE UROBILINOGEN 0.2 mg/dL (0.2 - 1)
[2020-06-22 19:25] LABS: BILIRUBIN,URINE NEGATIVE (NEGATIVE)
[2020-06-22 19:37] LABS: EPITHELIAL CELLS,URINE RARE /LPF
[2020-06-22] MEDS: PIPER-TAZ 3.375 GM 50 ML IV SCH (20:30)
[2020-06-22] MEDS: SODIUM CHLORIDE 0.9% 1000ML 1,000 ML IV SCH (20:30)
[2020-06-23 02:41] LABS: CREATINE KINASE MB 2.6 ng/mL (0-5.0)
[2020-06-23] MEDS ORDERED: ACETAMINOPHEN 325 MG TAB ONE (03:27)
[2020-06-23] MEDS ORDERED: ACETAMINOPHEN 325 MG TAB PO ONE (03:30)
[2020-06-23] MEDS: PIPER-TAZ 3.375 GM 50 ML IV SCH ×4 (03:46→18:24)
[2020-06-23] MEDS: SODIUM CHLORIDE 0.9% 1000ML 1,000 ML IV SCH ×3 (05:23→19:00)
[2020-06-23 06:42] LABS: BASOPHILS % 0.3 % (0.0-1.0); EOSINOPHILS # (AUTO) 0.1 (0.0-0.4); EOSINOPHILS % 0.9 % (0.0-6.0); HEMATOCRIT 37.4 % (38.2-49.6); HEMOGLOBIN 12.2 g/dL (14.0-18.0); LYMPHOCYTES % 16.9 % (18.0-39.1); MEAN CORPUSCULAR HEMOGLOBIN 30.8 pg (28-32); MEAN CORPUSCULAR HGB CONC 32.6 g/dL (31-35); MEAN CORPUSCULAR VOLUME 94.4 fL (81-99); MONOCYTES % 8.3 % (4.4-11.3); NEUTROPHILS # (AUTO) 8.8 (2.1-6.9); NEUTROPHILS % 73.3 % (38.7-80.0); PLATELET COUNT 148 x10e3/uL (140-360); RED BLOOD COUNT 3.96 x10e6/uL (4.3-5.7); RED CELL DISTRIBUTION WIDTH 13.3 % (11.7-14.4)
--- NOTE | 2020-06-23 06:47 | NUR ---
walking rounds with rachel watson
[2020-06-23 07:34] LABS: ALANINE AMINOTRANSFERASE 12 IU/L (0-55); ALBUMIN 3.3 g/dL (3.5-5.0); ALBUMIN/GLOBULIN RATIO 1.4 (0.8-2.0); ALKALINE PHOSPHATASE 55 IU/L (40-150); ANION GAP 12.7 mmol/L (8-16); BLOOD UREA NITROGEN 13 mg/dL (7-26); BUN/CREATININE RATIO 13 (6-25); CALCIUM 7.7 mg/dL (8.4-10.2); CARBON DIOXIDE 23 mmol/L (22-29); CHLORIDE 112 mmol/L (98-107); CREATININE, SERUM 1.02 mg/dL (0.72-1.25); EST GLOMERULAR FILTRATION RATE > 60 ML/MIN (60-); GLUCOSE 117 mg/dL (74-118); POTASSIUM 3.7 mmol/L (3.5-5.1); SODIUM 144 mmol/L (136-145)
[2020-06-23 11:19] LABS: CREATINE KINASE MB 2.5 ng/mL (0-5.0)
[2020-06-23] MEDS ORDERED: ROPINIROLE HCL1 MG PO (11:58)
--- NOTE | 2020-06-23 12:30 | NUR ---
RECEIVED REPORT FROM BINA ORNELAS. PATIENT IN STABLE CONDITION, NO S/S OF DISTRESS NOTED. RESPIRATION EVEN AND NONLABORED. IV SITE ASYMPTOMATIC AND PATENT, TRANSPARENT DRESSING C/D/I. TELEMETRY WITH CONT. PULSE OX APPLIED. BED IN LOWEST POSITION AND LOCKED, SIDE RAILS X 2, NONSKID SOCKS APPLIED. CALL LIGHT WITHIN REACH.
[2020-06-23 12:52] VITALS: BP 139/67
[2020-06-23 12:59] VITALS: BP 139/67
--- NOTE | 2020-06-23 16:14 | NUR ---
DR. ADAMS PAGED ABOUT BLOOD CULTURES SHOWING- GRAM POSITIVE COCCI IN CLUSTERS. AWAITING RETURN CALL.
--- NOTE | 2020-06-23 16:22 | NUR ---
RECEIVED CALL BACK FROM DR. Kinsey ARZOLA NEW ORDERS RECEIVED.
[2020-06-23 16:27] VITALS: BP 124/62
[2020-06-23] MEDS: VANCOMYCIN 1GM/NS 250 ML 250 ML IV SCH (16:55)
--- NOTE | 2020-06-23 19:10 | NUR ---
COMPLETED BEDSIDE REPORT AND ROUNDING WITH ONCOMING NIGHT NURSE. RESPIRATION EVEN AND NONLABORED. PATIENT IN STABLE CONDITION, NO S/S OF DISTRESS NOTED. IV FLUIDS INFUSING, SITE ASYMPTOMATIC AND PATENT, TRANSPARENT DRESSING C/D/I. BED IN LOWEST POSITION AND LOCKED, SIDE RAILS X 2, NONSKID SOCKS APPLIED. CALL LIGHT WITHIN REACH.
[2020-06-23 20:00] VITALS: BP 145/71
[2020-06-23 20:18] VITALS: BP 145/71
[2020-06-24] VITALS (7 sets, daily range): BP systolic 100–162; BP diastolic 60–82
[2020-06-24] MEDS: PIPER-TAZ 3.375 GM 50 ML IV SCH ×5 (00:21→23:39)
[2020-06-24] MEDS: SODIUM CHLORIDE 0.9% 1000ML 1,000 ML IV SCH ×3 (03:00→20:12)
[2020-06-24] MEDS: VANCOMYCIN 1GM/NS 250 ML 250 ML IV SCH ×2 (04:18→17:05)
--- NOTE | 2020-06-24 08:35 | NUR ---
The pt. was received from the of-going nurse post bedside rounding. The pt c/o pain and reports that he has not received any medications since he arrived and asks for physical therapy treatment. A call was paced to the for med rec as well as for PT order.
[2020-06-24] MEDS: ATENOLOL 50 MG TAB PO SCH (10:00)
[2020-06-24] MEDS: PANTOPRAZOLE SOD 40 MG TABEC PO SCH (10:00)
[2020-06-24] MEDS: GABAPENTIN 300 MG CAP PO SCH (10:00)
[2020-06-24] MEDS ORDERED: ONDANSETRON HCL 4 MG ORAL DISINTEGRATING TAB ONE (10:11)
[2020-06-24] MEDS ORDERED: ONDANSETRON HCL 4 MG ORAL DISINTEGRATING TAB PO PRN ×2 (10:15→10:30)
--- NOTE | 2020-06-24 11:42 | Diagnostic Imaging Report ---
Exam: CHEST 2 VIEWS Date: 06/24/2020 11:37 AM INDICATION: ^PNA Comparison: 06/22/2020 FINDINGS: Lines/Tubes:Overlying EKG leads are noted. Lungs:Lungs are well expanded. Previously identified patchy airspace opacities at the lung bases have improved. Negative for focal lobar consolidation. Pleura:No pleural effusion. No pneumothorax. Heart/Mediastinum:The cardiomediastinal silhouette is normal in size and contour. Bones/Soft Tissues: No acute osseous abnormality. Upper abdomen: Unremarkable. IMPRESSION: New complete resolution of the linear patchy opacities at the lung bases which probably related to atelectasis. No focal consolidation is identified. Signed by: Keshav Oneal MD on 06/24/2020 11:39 AM
[2020-06-24] MEDS: ROPINIROLE HCL 1 MG TAB PO SCH ×2 (15:00→20:12)
[2020-06-24] MEDS ORDERED: ROPINIROLE HCL 1 MG TAB PO SCH (21:00)
[2020-06-24] MEDS ORDERED: ACETAMINOPHEN 325 MG TAB PO PRN (23:15)
--- NOTE | 2020-06-24 23:15 | NUR ---
PATIENT C/O HEADACHE. SPOKE TO DR. ARZOLA. NEW ORDER RECEIVED
[2020-06-25 00:13] VITALS: BP 112/69
[2020-06-25 04:00] VITALS: BP 123/56
[2020-06-25] MEDS: VANCOMYCIN 1GM/NS 250 ML 250 ML IV SCH (05:08)
[2020-06-25] MEDS: SODIUM CHLORIDE 0.9% 1000ML 1,000 ML IV SCH ×2 (05:08→11:00)
[2020-06-25] MEDS: PIPER-TAZ 3.375 GM 50 ML IV SCH ×2 (06:02→13:33)
[2020-06-25 07:04] LABS: BASOPHILS % 0.6 % (0.0-1.0); EOSINOPHILS # (AUTO) 0.1 (0.0-0.4); EOSINOPHILS % 1.9 % (0.0-6.0); HEMATOCRIT 37.1 % (38.2-49.6); LYMPHOCYTES % 29.1 % (18.0-39.1); MEAN CORPUSCULAR HEMOGLOBIN 29.7 pg (28-32); MEAN CORPUSCULAR HGB CONC 32.3 g/dL (31-35); MEAN CORPUSCULAR VOLUME 91.8 fL (81-99); MONOCYTES # (AUTO) 0.8 (0.2-0.8); MONOCYTES % 11.4 % (4.4-11.3); NEUTROPHILS # (AUTO) 3.8 (2.1-6.9); NEUTROPHILS % 56.7 % (38.7-80.0); PLATELET COUNT 151 x10e3/uL (140-360); RED BLOOD COUNT 4.04 x10e6/uL (4.3-5.7); RED CELL DISTRIBUTION WIDTH 13.7 % (11.7-14.4)
[2020-06-25 07:30] LABS: ANION GAP 10.5 mmol/L (8-16); BLOOD UREA NITROGEN 8 mg/dL (7-26); BUN/CREATININE RATIO 9 (6-25); CALCIUM 8.1 mg/dL (8.4-10.2); CARBON DIOXIDE 24 mmol/L (22-29); CHLORIDE 111 mmol/L (98-107); CREATININE, SERUM 0.86 mg/dL (0.72-1.25); EST GLOMERULAR FILTRATION RATE > 60 ML/MIN (60-); GLUCOSE 89 mg/dL (74-118); POTASSIUM 3.5 mmol/L (3.5-5.1); SODIUM 142 mmol/L (136-145)
[2020-06-25 08:15] VITALS: BP 136/81
[2020-06-25] MEDS: ROPINIROLE HCL 1 MG TAB PO SCH (10:07)
[2020-06-25] MEDS: GABAPENTIN 300 MG CAP PO SCH (10:07)
[2020-06-25] MEDS: PANTOPRAZOLE SOD 40 MG TABEC PO SCH (10:08)
[2020-06-25] MEDS: ATENOLOL 50 MG TAB PO SCH (10:08)
[2020-06-25 11:08] VITALS: BP 136/81
[2020-06-25 12:01] VITALS: BP 112/61
[2020-06-25 15:43] VITALS: BP 149/74
--- NOTE | 2020-06-25 18:22 | NUR ---
pt discharged home , with medications, pt educated on his medication, iv site removed, no swelling no redness to site.
--- OUTSIDE RECORDS SUMMARY | 2020-06-26 15:35 | XMS REPORT | Continuity of Care Document ---
Author Author [employer] [place] Address Unknown Phone Unavailable Care Team Providers Care Supervisor Correspondence Section Name Role Phone Datamars Information eTelemetry Unavailable Un available Problems Problem Status Onset [...] viral diseases Active Diagnosis 09/02/2019 [facility] (current) use of opiate analgesic Active Diagnosis [...] Orally Active 4mg Orally once a day [place] 04/22/2020 [facility] Tylenol/Codeine #3 1 tablet as needed Orally Active 300-30 MG Orally every 6 hrs [facility] 04/14/2020 [facility] Chlordiazepoxide HCl 1 capsule Orally Active 10 MG Orally Twice a day [facility] 04/14/2020 [facility] Tramadol HCl 1 tablet as needed Orally Active 50 mg Orally twice a day (bid) [place] 08/20/2019 [facility] Medrol Dose [place] as directed Orally Active 4mg Orally once a day [facility] 12/01/2018 [facility] Chlordiazepoxide HCl 1 capsule Orally Active 10 MG Orally Twice a day [place] 09/09/2018 [facility] Chlordiazepoxide HCl 1 capsule Orally Active 25 MG Orally tid for nausea [facility] 08/12/2018 [facility] PredniSONE 1-2 tabs prn for ar thritis flare up Orally Active 5 MG Orally Once a day [facility] 08/05/2018 [facility] Zofran 1 tablet Orally Active 8 MG Orally Twice a day [facility] 08/05/2018 [facility] Tylenol/Codeine #3 1 tablet as needed Orally Active 300-30 MG Orally qid [place] 06/10/2018 [facility] Meclizine HCl 1 tablet as need ed Orally Active 25 MG Orally Once a day [place] 06/10/2018 [facility] Vitamin D (Ergocalciferol) 1 c apsule Orally Active 38102 UNIT Orally once a week [place] 12/17/2017 [facility] Simponi Aria as directed Intravenous Active 50 MG/4ML Intravenous [place] 09/02/2017 [facility] PredniSONE 1-2 tabs PRN Orally Active 5 MG Orally Once a day [place] 08/20/2017 [facility] PredniSONE 1-2 tabs PRN [...] 0.25 MG Orally Once a day [facility] Stiolto Respimat 2 puffs Inhalation Active 2.5-2.5 [...]
--- OUTSIDE RECORDS SUMMARY | 2020-06-26 15:36 | XMS REPORT | Continuity of Care Document ---
Author Author [facility] t Organization [facility] Address [address] [place] [address] Phone Unavailable Care Team Providers Care Physician Non Invasive Cardiologist Name Role Phone MD KLAUDIA ARZOLA PCP KLAUDIA ARZOLA Attphys Unavailable DUCHAMP, Gerson RACQUEL Attphys Unavailable SWEETGerson Attphys Unavailable ARZOLANIECY Howe Attphys Unavailable AG JACOBSEN Attphys Unavailable SHAW, A HAZEL Attphys Unavailable ELMIRA HUGHES Attphys Unavailable TRACEE PENI Attphys Unavailable Gigi PRAKASH Attphys Unavailable ARZOLAKLAUDIA Howe Admphys Unavailable AG JACOBSEN Admphys Unavailable SHAW, A HAZEL Admphys Unavailable TRACEE PENI Admphys Unavailable Payers Payer Name Policy Type Policy Number Effective Date Expiration Date [facility] [id number] 2019 00:00:00 [facility] Problems Condition Name Condition Details Condition Category Status Onset Date Resolution Date Last Treatment Date Treating Clinician Comments Source Closed fracture of one rib Closed fracture of one rib Problem Active 2018-02-22 00:00:00 [facility] (LUF/IZAIAH/SA) Arthralgia of bilateral temporomandibular joint Arthra [...] [facility] Dizziness Dizziness Problem Active [facility] Foreign body in esophagus Esophageal foreign body Problem Active [facility] Fever Fever Problem Active [facility] Weakness Generalized weakness Problem Active [facility] Pill esophagitis Pill esophagitis Problem Active [facility] Pneumonia Pneumonia Problem Active [facility] Nausea Problem Active [facility] Pre-syncope Problem Active [facility] Constipation Problem Active [facility] Mass of right kidney Problem Active [facility] Weight loss Problem Active [facility] Knee pain, right Knee pain, right Active Problem 04/24/2020 Keegan Ingram Problem Active 2020-04-24 02:45:06 John Barillasann Ankylosing spondylitis of multiple sites in spine [...] Ingram Problem Active 2020-04-24 02:45:06 John Barillasann Neck mass Neck mass Active Problem 04/24/2020 [...] Gibson Problem Active 2018-01-25 02:45:48 John Cárdenas Venous insufficiency Veno us insufficiency Active Diagnosis 03/07/2017 Philippe Gibson Diagnosis Active 2017-03-07 02:45 :07 John Cárdenas Essential hypertension Esse ntial hypertension Active Problem 01/25/2018 Philippe Gibson Problem Active 20 16-01-28 02:45:48 John Cárdenas Obesity (BMI 30.0-34.9) Obes ity (BMI 30.0-34.9) Active Problem 01/25/2018 Philippe Gibson Problem Active 16-01-28 02:45:48 [facility] Avi Osteoarthritis, unspecified osteoarthritis type, unspe cified site Osteoarthritis, unspecified osteoarthritis type, unspecified site Active Problem 01/25/2018 Philippe Gibson Problem Active 16-01-28 02:45:48 [facility] Family history of abdominal aortic aneurysm (AAA) Family history of abdominal aortic aneurysm (AAA) Active Problem 01/25/2018 Philippe Gibson Problem Active 2018-01-25 02:45:48 Armando Cárdenas Former smoker Form er smoker Active Problem 01/25/2018 Philippe Gibson Problem Active 2018-01-25 02:45:48 [facility] Avi Dyspnea, unspecified type Dysp kobi, unspecified type Active Problem 01/25/2018 Philippe Gibson Problem Active 16-01-28 02:45:48 [facility] Preoperative cardiovascular examination Preoperative cardiovascular examination Active Problem 01/25/2018 Philippe Gibson Problem Active 2018-01-25 02:45:48 Daniel Cárdenas 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 care home (current) use of opiate analgesic care home (current) use of opiate analgesic Active Diagnosis 09/02/2019 Keegan Ingram Diagnosis Active 2019-09-02 03:46:32 [facility] Encounter for screening for other bacterial diseases Encounter for screening for other bacterial diseases Active Diagnosis 09/02/2019 Keegan Ingram Diagnosis Active 2019-09-02 03:46:32 [facility] Screening for tuberculosis Scr eening for tuberculosis Active Diagnosis 09/02/2019 Keegan Ingram Diagnosis Active 2019-09-02 03:46:32 [facility] Chronic pain Home Care Nurse juwan pain Active Problem 04/24/2020 Keegan Ingram Problem Active 2020-04-24 02:45:06 [facility] Immunocompromised state Immu nocompromised state Active Problem 04/24/2020 Keegan Ingram Problem Active 2020-04-24 02 :45:06 [facility] Allergies, Adverse Reactions, Alerts Allergy Name Allergy Type Status Severity Reaction(s) Onset Date Inacti ve Date Treating Clinician Comments Source Remicade Remicade Active Info Not Available 2020-04-14 00:00:00 [facility] Mirapex Mirapex Active nausea/emesis 2020-04-14 00:00:00 [facility] latex DA Active U 2019-01-21 00:00:00 [facility] Latex Allergy to substance Active RASH 2017-06-28 00:00:00 [facility] N.K.AlixA. N.GladisA. Active Info Not Available 2017-02-28 00:00:00 [facility] latex DA Active U 2013-02-17 00:00:00 [facility] Latex Gloves Adverse Reaction Active Info Not Available [facility] Family History Family Member Diagnosis Comments Start Date Stop Date Source 33 FATHER Family history of arterial aneurysm [facility] 32 MOTHER Family history of arterial aneurysm [facility] 09 SISTER Family history of neuropathy [facility] Social History Social Habit Start Date Stop Date Quantity Comments Source Sex Assigned At 1935 00:00:00 1935 00:00:00 Male [facility] Smoking Status Start Date Stop Date Source Never smoker [facility] (LUF/IZAIAH/SA) Medications Ordered Medication Name Filled Medication Name Start Date Stop Da te Current Medication? Ordering Clinician Indication Dosage Frequency Signature (SIG) Comments Components Source Medrol Dose Davis 2020-04-22 00:00:00 Yes Gregory Ingram as directed [facility] Nexium 2020-04-19 02:46:07 Yes Milad Rodriguez TAKE ONE CAPSULE BY MOUTH EVERY DAY [facility] Atenolol 2020-04-19 02:46:07 Yes Milad Rodriguez 1 t ablet [facility] Gabapentin 2020-04-19 02:46:07 Yes Milad Rodriguez 1 tablet [facility] Vitamin D 2020-04-19 02:46:07 Yes Milad Rodriguez 1 tablet [facility] Tylenol/Codeine #3 2020-04-14 00:00:00 Yes Milad Rodriguez 1 tablet as needed [facility] Chlordiazepoxide HCl 2020-04-14 00:00:00 Yes Milad Rodriguez 1 capsule [facility] Tramadol HCl 2019-08-20 00:00:00 Yes Maria E Martines 1 tablet as needed [facility] Medrol Dose Davis 2018-12-01 00:00:00 Yes Walizabethehgerson BotelloClau as directed [facility] Chlordiazepoxide HCl 2018-09-09 00:00:00 Yes Maria E Martines 1 capsule [facility] Chlordiazepoxide HCl 2018-08-12 00:00:00 Yes Wajeeha Clau 1 capsule [facility] PredniSONE 2018-08-05 00:00:00 Yes Ronala Clau 1-2 tabs prn for arthritis flare up [facility] Zofran 2018-08-05 00:00:00 Yes Milad Rodriguez 1 tab let [facility] Nasacort Nasacort 2018-07-31 00:00:00 Yes Duane Mcdonnell 2 puffs in each nostril [facility] Ofloxacin Ofloxacin 2018-07-31 00:00:00 2018-08-06 00:00:00 No Jayla Mcdonnell 4 drops into affected ear [facility] Gabapentin 2018-06-17 02:46:27 Yes Evaristo Rolonf 1 tablet [facility] Tylenol/Codeine #3 2018-06-10 00:00:00 Yes Maria E Martines 1 tablet as needed [facility] Meclizine HCl 2018-06-10 00:00:00 Yes Milad Rodriguez 1 tablet as needed [facility] Atenolol 2018-01-25 02:45:48 Yes Philippe Jeroudi 1 tablet [facility] Azelastine HCl 2018-01-25 02:45:48 Yes Philippe Jeroudi 1 puff in each nostril [facility] Hydrocodone-Acetaminophen 2018-01-25 02:45:48 Yes Chasidyame d Jeroudi 1 tablet as needed [facility] Omeprazole 2018-01-25 02:45:48 Yes Mohamed Jeroudi 1 capsule [facility] Triamterene-HCTZ 2018-01-25 02:45:48 Yes Mohamed Jeroudi 1 tablet in the morning [facility] Gabapentin 2018-01-25 02:45:48 Yes Mohamed Jeroudi 1 tablet [facility] Asmanex 14 Metered Doses 2018-01-25 02:45:48 Yes Mohamed Jeroudi 1 puff in the evening [facility] Pramipexole Dihydrochloride 2018-01-25 02:45:48 Yes Moha med Jeroudi 1 tablet before bedtime [facility] Stiolto Respimat 2018-01-25 02:45:48 Yes Mohamed Jeroudi [address] [facility] Vitamin D (Ergocalciferol) 2017-12-17 00:00:00 Yes Gretta Ingram 1 capsule [facility] Ciprodex Ciprodex 2017-12-11 00:00:00 Yes Duane Mcdonnell not defined [facility] Simponi Aria 2017-09-02 00:00:00 Yes Milad Rodriguez as directed [facility] PredniSONE 2017-08-20 00:00:00 Yes Gregory Melgarer 1-2 tabs PRN [facility] PredniSONE 2017-08-20 00:00:00 Yes Evaristo Clau 1-2 tabs PRN [facility] Atenolol 2017-07-23 02:45:17 Yes Mohamed Jeroudi 1 [address] [facility] Gabapentin 2017-07-23 02:45:17 Yes Mohamed Jeroudi 1 [address] [facility] Pramipexole Dihydrochloride 2017-07-23 02:45:17 Yes Moha med Jeroudi 1 tablet before bedtime [facility] Triamterene-HCTZ 2017-07-23 02:45:17 Yes Mohamed Jeroudi 1 tablet in the morning [facility] Omeprazole 2017-07-23 02:45:17 Yes Mohamed Jeroudi 1 capsule [facility] Azelastine HCl 2017-07-23 02:45:17 Yes Mohamed Jeroudi 1 puff in each nostril [facility] Asmanex 14 Metered Doses 2017-07-23 02:45:17 Yes Mohamed Jeroudi 1 puff in the evening [facility] Hydrocodone-Acetaminophen 2017-07-23 02:45:17 Yes Mohame d Jeroudi 1 tablet as needed [facility] Stiolto Respimat 2017-07-23 02:45:17 Yes Philippe Gibson 2 [address] [facility] Ranitidine HCl Ranitidine HCl 2017-07-16 00:00:00 Yes Duane Calero tton 1 tablet [facility] Tylenol/Codeine #3 2016-12-28 00:00:00 Yes Evaristo Rolon f 1 tablet as needed [facility] Acetaminophen 300 MG / Codeine Phosphate 60 MG Oral Ta blet Acetaminophen 300 MG / Codeine Phosphate 60 MG Oral Tablet Yes 1tab QID [facility] (F/IZAIAH/SA) Atenolol 50 MG Oral Tablet Atenolol 50 MG Oral Tablet Yes 50mg [facility] (F/IZAIAH/SA) gabapentin 600 MG Oral Tablet gabapentin 600 MG Oral Tablet Yes 600mg TID [facility] (F/IZAIAH/SA) Gabapentin Gabapentin Yes Duane Mcdonnell not defin ed [facility] Triamterene Triamterene Yes Duane Mcdonnell not def ined [facility] Atenolol Atenolol Yes Duane Mcdonnell not defined [facility] Acetamin Acetamin Yes Duane Mcdonnell not defined [facility] Acetaminophen With Codeine (Acetaminophen-Codeine Elix ir) 118 Ml ELIXIR Acetaminophen With Codeine (Acetaminophen-Codeine Elixir) 118 Ml ELIXIR Yes [facility] Atenolol Atenolol Yes 50 Daily [facility] Chlordiazepoxide Hcl Chlordiazepoxide Hcl Yes [facility] Gabapentin Gabapentin Yes 600 Daily [facility] Pantoprazole Sodium (Protonix) 40 Mg TABLET. Pantopr azole Sodium (Protonix) 40 Mg TABLET. Yes 40 Daily [facility] Ropinirole Hcl Ropinirole Hcl Yes 1 Three Time s A Day [facility] Spironolactone Spironolactone Yes [facility] Azithromycin (Z-Davis) 250 Mg TABLET Azithromycin (Z-Davis) 250 Mg T ABLET 2020-06-23 00:00:00 No 250 Use As Directed [facility] Ondansetron Ondansetron 2020-06-23 00:00:00 No [facility] Smz/Tmp Smz/Tmp 2020-06-23 00:00:00 No [facility] Gabapentin Gabapentin 2019-05-15 00:00:00 No 600 Thr ee Times A Day [facility] Ropinirole Hcl Ropinirole Hcl 2019-05-15 00:00:00 No .5 Bedtime [facility] Meclizine Hcl Meclizine Hcl 2019-03-11 00:00:00 No 25 Daily [facility] Pramipexole Di-Hcl (Pramipexole Dihydrochloride) 0.25 Mg TABLET Pramipexole Di- Hcl (Pramipexole Dihydrochloride) 0.25 Mg TABLET 2019-03-11 00:00:00 No .5 Twice A Day [facility] Triamterene/Hctz Triamterene/Hctz 2019-03-11 00:00:00 No Daily [facility] Vital Signs Vital Name Observation Time Observation Value Comments Source Body Temperature 2020-06-25 15:43:00 98.8 [degF] [facility] Weight 2020-06-23 12:43:00 229.04 [lb_av] [facility] BMI (Body Mass Index) 2020-06-23 12:43:00 31.9 kg/m2 [facility] Body Temperature 2020-06-10 09:19:00 97.0 [degF] [facility] BMI (Body Mass Index) 2020-06-09 01:00:00 28.9 kg/m2 [facility] Weight 2020-06-08 17:30:00 213 [lb_av] [facility] Body Temperature 2020-05-20 19:48:00 98.4 [degF] [facility] Weight 2020-05-20 15:27:00 210 [lb_av] [facility] BMI (Body Mass Index) 2020-05-20 15:27:00 30.1 kg/m2 [facility] Weight 2020-04-14 20:00:00 [facility] Height 2020-04-14 20:00:00 [facility] Temperature Oral (F) 2020-04-14 20:00:00 97.9 F [facility] Heart Rate 2020-04-14 20:00:00 [facility] Diastolic (mm Hg) 2020-04-14 20:00:00 [facility] [place] Systolic (mm Hg) 2020-04-14 20:00:00 [facility] [place] Weight 2019-08-20 20:30:00 [facility] Height 2019-08-20 20:30:00 [facility] Temperature Oral (F) 2019-08-20 20:30:00 97.7 F [facility] Heart Rate 2019-08-20 20:30:00 [facility] Diastolic (mm Hg) 2019-08-20 20:30:00 [facility] Systolic (mm Hg) 2019-08-20 20:30:00 Armando rial [facility] Weight 2019-06-16 18:45:00 [facility] Height 2019-06-16 18:45:00 [facility] Temperature Oral (F) 2019-06-16 18:45:00 98.9 F [facility] Heart Rate 2019-06-16 18:45:00 [facility] Diastolic (mm Hg) 2019-06-16 18:45:00 [facility] [place] Systolic (mm Hg) 2019-06-16 18:45:00 Armando rial [facility] Weight 2019-01-05 16:45:00 [facility] Height 2019-01-05 16:45:00 [facility] Temperature Oral (F) 2019-01-05 16:45:00 96.8 F [facility] Heart Rate 2019-01-05 16:45:00 [facility] Diastolic (mm Hg) 2019-01-05 16:45:00 [facility] [place] Systolic (mm Hg) 2019-01-05 16:45:00 [facility] [place] Weight 2018-11-07 16:15:00 [facility] Height 2018-11-07 16:15:00 [facility] Temperature Oral (F) 2018-11-07 16:15:00 96.6 F [facility] Heart Rate 2018-11-07 16:15:00 [facility] Diastolic (mm Hg) 2018-11-07 16:15:00 [facility] Systolic (mm Hg) 2018-11-07 16:15:00 Armando mitzil [facility] Weight 2018-11-04 19:15:00 [facility] Height 2018-11-04 19:15:00 [facility] Temperature Oral (F) 2018-11-04 19:15:00 98.0 F [facility] Heart Rate 2018-11-04 19:15:00 [facility] Diastolic (mm Hg) 2018-11-04 19:15:00 [facility] Systolic (mm Hg) 2018-11-04 19:15:00 Armando rial [facility] Weight 2018-09-09 19:00:00 [facility] Height 2018-09-09 19:00:00 [facility] Temperature Oral (F) 2018-09-09 19:00:00 98.8 F [facility] Heart Rate 2018-09-09 19:00:00 [facility] Diastolic (mm Hg) 2018-09-09 19:00:00 [facility] [place] Systolic (mm Hg) 2018-09-09 19:00:00 [facility] [place] Weight 2018-08-12 21:00:00 [facility] Height 2018-08-12 21:00:00 [facility] Temperature Oral (F) 2018-08-12 21:00:00 97.2 F [facility] Heart Rate 2018-08-12 21:00:00 [facility] Diastolic (mm Hg) 2018-08-12 21:00:00 [facility] [place] Systolic (mm Hg) 2018-08-12 21:00:00 [facility] [place] Weight 2018-08-05 19:00:00 [facility] Height 2018-08-05 19:00:00 [facility] Temperature Oral (F) 2018-08-05 19:00:00 98.5 F [facility] Heart Rate 2018-08-05 19:00:00 [facility] Diastolic (mm Hg) 2018-08-05 19:00:00 [facility] [place] Systolic (mm Hg) 2018-08-05 19:00:00 [facility] [place] Weight 2018-06-10 18:30:00 [facility] Height 2018-06-10 18:30:00 [facility] Temperature Oral (F) 2018-06-10 18:30:00 97.0 F [facility] Heart Rate 2018-06-10 18:30:00 [facility] Diastolic (mm Hg) 2018-06-10 18:30:00 [facility] Systolic (mm Hg) 2018-06-10 18:30:00 [facility] [place] Body Temperature 2018-02-22 12:32:00 98.2 F [facility] (LUF/IZAIAH/SA) Respiratory Rate 2018-02-22 12:32:00 20 /min [facility] (LUF/IZAIAH/SA) O2% BldC Oximetry 2018-02-22 12:32:00 98 % [facility] (LUF/IZAIAH/SA) BP Systolic 2018-02-22 12:32:00 128 mm[Hg] [facility] (LUF/IZAIAH/SA) BP Diastolic 2018-02-22 12:32:00 71 mm[Hg] [facility] (LUF/IZAIAH/SA) Height 2018-02-22 12:32:00 71 in [facility] (LUF/IZAIAH/SA) Weight Measured 2018-02-22 12:32:00 237 lbs [facility] (LUF/IZAIAH/SA) BMI (Body Mass Index) 2018-02-22 12:32:00 33.1 [facility] (LUF/IZAIAH/SA) Weight 2018-02-13 18:15:00 [facility] Height 2018-02-13 18:15:00 [facility] Temperature Oral (F) 2018-02-13 18:15:00 97.3 F [facility] [place] Heart Rate 2018-02-13 18:15:00 [facility] Diastolic (mm Hg) 2018-02-13 18:15:00 [facility] Systolic (mm Hg) 2018-02-13 18:15:00 Armando rial [facility] Weight 2017-12-16 20:00:00 [facility] Height 2017-12-16 20:00:00 [facility] Temperature Oral (F) 2017-12-16 20:00:00 98.2 F [facility] Heart Rate 2017-12-16 20:00:00 [facility] Diastolic (mm Hg) 2017-12-16 20:00:00 [facility] Systolic (mm Hg) 2017-12-16 20:00:00 [facility] [place] Weight 2017-10-21 21:30:00 [facility] Height 2017-10-21 21:30:00 [facility] Temperature Oral (F) 2017-10-21 21:30:00 99.0 F [facility] Heart Rate 2017-10-21 21:30:00 [facility] Diastolic (mm Hg) 2017-10-21 21:30:00 [facility] Systolic (mm Hg) 2017-10-21 21:30:00 [facility] [place] Weight 2017-02-28 18:00:00 [facility] Height 2017-02-28 18:00:00 [facility] Temperature Oral (F) 2017-02-28 18:00:00 97.3 F [facility] Heart Rate 2017-02-28 18:00:00 [facility] Diastolic (mm Hg) 2017-02-28 18:00:00 [facility] Systolic (mm Hg) 2017-02-28 18:00:00 [facility] [place] Weight 2017-01-31 20:00:00 [facility] Height 2017-01-31 20:00:00 [facility] Temperature Oral (F) 2017-01-31 20:00:00 97.6 F [facility] Heart Rate 2017-01-31 20:00:00 [facility] Diastolic (mm Hg) 2017-01-31 20:00:00 [facility] [place] Systolic (mm Hg) 2017-01-31 20:00:00 [facility] [place] Weight 2017-01-16 20:30:00 [facility] Height 2017-01-16 20:30:00 [facility] Temperature Oral (F) 2017-01-16 20:30:00 98.0 F [facility] Heart Rate 2017-01-16 20:30:00 [facility] Diastolic (mm Hg) 2017-01-16 20:30:00 [facility] Systolic (mm Hg) 2017-01-16 20:30:00 [facility] [place] Procedures Procedure Date / Time Performed Performing Clinician [facility] e X-ray of chest, two views 2020-06-24 00:00:00 [facility] CT of abdomen and pelvis without contrast 2020-05-20 00:00:00 [facility] Computed tomography of abdomen and pelvis with contrast 00:00:00 [facility] Computed tomography of brain without radiopaque contrast 2020-03 00:00:00 [facility] Plan of Care Planned Activity Planned Date Details Comments Source Instructions Pneumonia - Bacterial [facility] Instructions Weakness (Generalized) [facility] Encounters Start Date/Time End Date/Time Encounter Type Admission Type Attendi [facility] Care Department Encounter ID Source 2020-06-24 10:33:00 2020-06-25 18:11:00 Discharged Inpatient 1 ARZOLA, [facility] [id number] [facility] 2020-06-08 21:24:00 2020-06-10 11:01:00 Discharged Inpatient (obs) 1 RACQUEL DELGADO [facility] [id number] [facility] 2020-05-20 17:40:00 2020-05-20 20:15:00 Departed Emergency Room TRACEE AUDIANA [facility] [id number] [facility] 2020-05-12 16:56:00 2020-05-12 16:56:00 Registered Clinic 3 ARZOLANIECY Howe [facility] [id number] [facility] 2020-05-11 17:07:00 2020-05-11 17:07:00 [facility] [id number] [facility] 2020-04-22 09:51:00 2020-04-22 09:51:00 Outpatient Gregory Ingram MD [place] [id number] Keegan Ingram MD 2020-04-14 15:00:00 2020-04-14 15:00:00 Outpatient Gregory Ingram MD [place] [id number] Keegan Ingram MD 2020-04-01 12:13:00 2020-04-02 21:44:00 Discharged Inpatient 1 AG JACOBSEN [facility]' Patients [facility] [id number] [facility]. [facility]na [facility] - Patients [facility] 2020-03-16 13:53:00 2020-03-16 15:50:00 Departed Emergency Room [facility] [id number] [facility]. [facility] - Patients [facility] 2020-03-14 13:57:00 2020-03-14 13:57:00 Outpatient Gregory Ingram MD [place] [id number] Keegan Ingram MD 2020-03-13 16:51:00 2020-03-14 00:05:00 Departed Emergency Room 1 PER AU [facility] [id number] [facility] 2019-11-09 15:05:00 2019-11-09 15:05:00 Outpatient MD GALILEA Cazares MD [place] [id number] Keegan Ingram MD 2019-10-28 16:53:00 2019-10-28 16:53:00 Outpatient MD GALILEA Cazares MD PA [id number] Keegan Ingram MD 2019-08-20 14:53:00 2019-08-20 14:53:00 Outpatient MD GALILEA Cazares MD PA [id number] Keegan Ingram MD 2019-08-20 14:30:00 2019-08-20 14:30:00 Outpatient Gregory Ingram MD PA [id number] Keegan Ingram MD 2019-06-16 13:45:00 2019-06-16 13:45:00 Outpatient Gregory Ingram MD PA [id number] MIRACLE Ingram MD 2019-06-03 12:40:00 2019-06-03 12:40:00 Outpatient MD GALILEA Villa MD PA [id number] Keegan Ingram MD 2019-05-20 11:17:00 2019-05-20 11:17:00 Outpatient Gregory CALERO [id number] MIRACLE Ingram MD 2019-05-14 02:17:00 2019-05-15 18:35:00 Discharged Inpatient (obs) 1 [facility] [id number] [facility] 2019-03-30 14:59:00 2019-03-30 14:59:00 Outpatient Gregory CALERO [id number] Keegan Ingram MD 2019-03-17 07:14:00 2019-03-17 07:14:00 Registered Surgical Day Car e ELMIRA PARRA [facility] [id number] [facility] 2019-03-04 16:27:00 2019-03-04 16:27:00 Outpatient Gregory CALERO [id number] Keegan Ingram MD 2019-01-08 10:55:00 2019-01-08 10:55:00 Outpatient [facility] [id number] [facility] 2019-01-05 11:45:00 2019-01-05 11:45:00 Outpatient Gregory CALERO [id number] Keegan Ingram MD 2018-12-01 16:00:00 2018-12-01 16:00:00 Outpatient Gregory CALERO [id number] MIRACLE Ingram MD 2018-11-28 13:18:00 2018-11-28 13:18:00 Outpatient Gregory CALERO [id number] MIRACLE Ingram MD 2018-11-07 10:15:00 2018-11-07 10:15:00 Outpatient Gregory CALERO [id number] Keegan Ingram MD 2018-11-04 13:15:00 2018-11-04 13:15:00 Outpatient rGegory CALERO [id number] Keegan Ingram MD 2018-09-09 13:00:00 2018-09-09 13:00:00 Outpatient Gregory CALERO [id number] Keegan Ingram MD 2018-08-26 14:53:00 2018-08-26 14:53:00 Outpatient Gregory CALERO [id number] Keegan Ingram MD 2018-08-12 15:00:00 2018-08-12 15:00:00 Outpatient Gregory CALERO [id number] Keegan Ingram MD 2018-08-05 13:00:00 2018-08-05 13:00:00 Outpatient Gregory CALERO [id number] Keegan Ingram MD 2018-07-31 10:00:00 2018-07-31 10:00:00 Outpatient [facility] P [id number] [facility] 2018-07-30 15:49:00 2018-07-30 15:49:00 Outpatient [facility] [id number] [facility] 2018-06-23 18:55:00 2018-06-23 18:55:00 [facility] [id number] [facility] 2018-06-10 14:46:00 2018-06-10 14:46:00 Outpatient Gregory CALERO [id number] Keegan Ingram MD 2018-06-10 13:30:00 2018-06-10 13:30:00 Outpatient Gregory CALERO [id number] Keegan Ingram MD 2018-02-22 12:13:00 2018-02-22 14:30:00 FX 1 RIB LT SIDE INITIAL CL OS FX 1 JOE EAS[facility], [address] [place] [address] , [place] [address] [facility] [id number] [facility] (LUF /IZAIAH/SA) 2018-02-13 13:15:00 2018-02-13 13:15:00 Outpatient Gregory Ingram MD PA [id number] Keegan Ingram MD 2018-02-11 15:39:00 2018-02-11 15:39:00 Outpatient Gregory Ingram MD PA [id number] Keegan Ingram MD 2017-12-17 12:56:00 2017-12-17 12:56:00 Outpatient Gregory CALERO [id number] Keegan Ingram MD 2017-12-16 15:00:00 2017-12-16 15:00:00 Outpatient Gregory Ingram MD PA [id number] Keegan Ingram MD 2017-12-11 13:20:00 2017-12-11 13:20:00 Outpatient [facility] [id number] [facility] 2017-12-04 13:00:00 2017-12-04 13:00:00 Outpatient [facility] [id number] [facility] 2017-10-22 08:34:00 2017-10-22 08:34:00 Outpatient Gregory Ingram MD PA [id number] Keegan Ingram MD 2017-10-21 15:30:00 2017-10-21 15:30:00 Outpatient Gregory Ingram MD PA [id number] Keegan Ingram MD 2017-02-28 13:00:00 2017-02-28 13:00:00 Outpatient Philippe Gibson MD PA [id number] [employer] 2017-02-12 11:00:00 2017-02-12 11:00:00 Outpatient Philippe Gibson MD PA [id number] [employer] 2017-01-31 15:00:00 2017-01-31 15:00:00 Outpatient Philippe Gibson MD PA [id number] [employer] 2017-01-16 15:30:00 2017-01-16 15:30:00 Outpatient Philippe Gibson MD PA [id number] [employer] Results Test Description Test Time Test Comments Results Result Comments Source Blood leukocytes automated count (number/volume) 2020-06-25 05:30:00 Test Item White Blood Count (test code = 6690-2) 6.73 4.8-10.8 [facility] erythrocytes automated count (number/volume)2020-06-25 05:30:00* Test Item Value Reference Range Interpretation Comments Red Blood Count (test code = 789-8) 4.04 4.3-5.7 [facility] CenterBlood hemoglobin measurement (moles/volume)2020-06-25 05:30:00* Test Item Value Reference Range Interpretation Comments Hemoglobin (test code = 79841-4) 12.0 14.0-18.0 [facility] CenterAutomated blood hematocrit (volume fraction)2020-06-25 05:30:00* Test Item Value Reference Range Interpretation Comments Hematocrit (test code = 4544-3) 37.1 38.2-49.6 [facility] CenterAutomated erythrocyte mean corpuscular hmdxtg5985-57-42 05:30:00* Test Item Value Reference Range Interpretation Comments Mean Corpuscular Volume (test code = 787-2) 91.8 81-99 [facility] CenterAutomated erythrocyte mean corpuscular hemoglobin (mass per erythrocyte)2020-06-25 05:30:00* Test Item Value Reference Range Interpretation Comments Mean Corpuscular Hemoglobin (test code = 785-6) 29.7 28-32 [facility] CenterAutomated erythrocyte mean corpuscular hemoglobin concentration measurement (mass/volume)2020-06-25 05:30:00* Test Item Value Reference Range Interpretation Comments Mean Corpuscular Hemoglobin Concent (test code = 786-4) 32.3 31-35 [facility] CenterRDW HruFz-Ian2696-44-26 05:30:00* Test Item Value Reference Range Interpretation Comments Red Cell Distribution Width (test code = 16411-4) 13.7 11.7 -14.4 [facility] CenterAutomated blood platelet count (count/volume)2020-06-25 05:30:00* Test Item Value Reference Range Interpretation Comments Platelet Count (test code = 777-3) 151 140-360 [facility] CenterAutomated blood segmented neutrophil count as percentage of total eejidnaspt0551-17-51 05:30:00* Test Item Value Reference Range Interpretation Comments Neutrophils (%) (Auto) (test code = 30178-3) 56.7 38.7-80.0 [facility] CenterAutomated blood lymphocyte count as percentage ot total xjwubnapoa2055-90-98 05:30:00* Test Item Value Reference Range Interpretation Comments Lymphocytes (%) (Auto) (test code = 736-9) 29.1 18.0-39.1 [facility] CenterAutomated blood monocyte count as percentage of total jderhuwonk2430-82-04 05:30:00* Test Item Value Reference Range Interpretation Comments Monocytes (%) (Auto) (test code = 5905-5) 11.4 4.4-11.3 [facility] CenterAutomated blood eosinophil count as percentage of total hfnlcgvqev0277-47-38 05:30:00* Test Item Value Reference Range Interpretation Comments Eosinophils (%) (Auto) (test code = 713-8) 1.9 0.0-6.0 [facility] CenterAutomated blood basophil count as percentage of total gmxlcfhjuz6724-05-79 05:30:00* Test Item Value Reference Range Interpretation Comments Basophils (%) (Auto) (test code = 706-2) 0.6 0.0-1.0 [facility] CenterFluoroscopic procedure less than one hour ovzgnwth0965-56-55 05:30:00* Test Item Value Reference Range Interpretation Comments IM GRANULOCYTES % (test code = IM GRANULOCYTES %) 0.3 0.0- 1.0 [facility] CenterAutomated blood neutrophil count 2020-06-25 05:30:00* Test Item Value Reference Range Interpretation Comments Neutrophils # (Auto) (test code = 751-8) 3.8 2.1-6.9 [facility] CenterBlood lymphocytes count (number/volume) 2020-06-25 05:30:00* Test Item Value Reference Range Interpretation Comments Lymphocytes # (Auto) (test code = 79644-4) 2.0 1.0-3.2 [facility] CenterBlood monocytes automated count (number/volume)2020-06-25 05:30:00* Test Item Value Reference Range Interpretation Comments Monocytes # (Auto) (test code = 742-7) 0.8 0.2-0.8 [facility] CenterAutomated blood eosinophil count 2020-06-25 05:30:00* Test Item Value Reference Range Interpretation Comments Eosinophils # (Auto) (test code = 711-2) 0.1 0.0-0.4 [facility] CenterAutomated blood basophil count (count/volume)2020-06-25 05:30:00* Test Item Value Reference Range Interpretation Comments Basophils # (Auto) (test code = 704-7) 0.0 0.0-0.1 [facility] CenterFluoroscopic procedure less than one hour xtiryozo1802-46-24 05:30:00* Test Item Value Reference Range Interpretation Comments Absolute Immature Granulocyte (auto (faye t code = Absolute Immature Granulocyte (auto) 0.02 0-0.1 [facility] or plasma sodium measurement (moles/volume)2020-06-25 05:30:00* Test Item Value Reference Range Interpretation Comments Sodium Level (test code = 2951-2) 142 136-145 [facility] Irvingerum or plasma potassium measurement (moles/volume)2020-06-25 05:30:00* Test Item Value Reference Range Interpretation Comments Potassium Level (test code = 2823-3) 3.5 3.5-5.1 [facility] Irving[facility] or plasma chloride measurement (moles/volume)2020-06-25 05:30:00* Test Item Value Reference Range Interpretation Comments Chloride Level (test code = 2075-0) 111 98-107 [facility] Irvingerum or plasma carbon dioxide, total measurement (moles/volume)2020-06-25 05:30:00* Test Item Value Reference Range Interpretation Comments Carbon Dioxide Level (test code = 2028-9) 24 22-29 [facility] Irving[facility] or plasma anion rtw8954-97-12 05:30:00* Test Item Value Reference Range Interpretation Comments Anion Gap (test code = 14513-4) 10.5 8-16 [facility] Irving[facility] or plasma urea nitrogen measurement (mass/volume)2020-06-25 05:30:00* Test Item Value Reference Range Interpretation Comments Blood Urea Nitrogen (test code = 3094-0) 8 7-26 [facility] Irving[facility] or plasma creatinine measurement (mass/volume)2020-06-25 05:30:00* Test Item Value Reference Range Interpretation Comments Creatinine (test code = 2160-0) 0.86 0.72-1.25 [facility] Irving[facility] or plasma urea nitrogen/creatinine mass qmftg5578-94-04 05:30:00* Test Item Value Reference Range Interpretation Comments BUN/Creatinine Ratio (test code = 3097-3) 9 6- [facility] CenterEstimated glomerular filtration rate (GFR) kfkicoksabpgy6887-00-59 05:30:00* Test Item Value Reference Range Interpretation Comments Estimat Glomerular Filtration Rate (test code = 171796678) > 60 >60 Ranges were taken from the National Kidney Disease Education Program and the [facility] [employer] literature.Reference ranges:60 or greater: Eyojxe25-86 ( for 3 consecutive months): Chronic kidney disease 15 or less: Kidney failureCarl [facility]. [facility]arnall Army Medical CenterGlucose ssfcmlpsiyh8209-07-96 05:30:00* Test Item Value Reference Range Interpretation Comments Glucose Level (test code = QMV8624) 89 74-118 [facility] Irvingerum or plasma calcium measurement (mass/volume)2020-06-25 05:30:00* Test Item Value Reference Range Interpretation Comments Calcium Level (test code = 64818-9) 8.1 8.4-10.2 [facility] Irvingerum or plasma trough vancomycin level at trough (mass/volume)2020-06-24 15:43:00* Test Item Value Reference Range Interpretation Comments Vancomycin Level Trough (test code = 4092-3) 11.0 5.0-10.0 Results repeated and called to OXANA MCKEON RN at 1626 on 06/24/20 by Morgan Arzola. Read back and verified.[facility] CenterCHES 2 BPPUA8119-30-01 11:37:00 [facility] [address] [address] Patient Name: NOEMY ARGUETA MR #: [id number] : 1935 Age/Sex: 85/M Req #: [id number] Adm Physician: KLAUDIA ARZOLA MD Ordered by: KLAUDIA ARZOLA MD Report #: [id number] Location: MED/SURG2 [place] [facility] [place] [facility] [place] Procedure: [id number] DX/CHEST 2 VIE WS Exam Date: Exam Time: REPORT STATUS: Signed Exam: CHEST 2 VIEWS Date: 06/24/20 11:37 AM INDICATION: PNA Comparison: 06/22/2020 FINDINGS: Lines/Tubes:Overlying EKG leads are noted. Lungs:Lungs are well expande d. Previously identified patchy airspace opacities at the lung bases have impr roderick. Negative for focal lobar consolidation. Pleura:No pleural effusion. N o pneumothorax. Heart/Mediastinum:The cardiomediastinal silhouette is rory l in size and contour. Bones/Soft Tissues: No acute osseous abnormality. Upper abdomen: Unremarkable. IMPRESSION: New complete resolution of the linear patchy opacities at the lung bases which probably related to ate lectasis. No focal consolidation is identified. Signed by: Keshav Aguillon MD on 06/24/2020 11:39 AM Dictated By: KESHAV AGUILLON MD Electronically Sanjana d By: KESHAV AGUILLON MD on 06/24/20 1139 Transcribed By: APOORVA on 06/24/20 113 9 COPY TO: KLAUDIA ARZOLA MD Serum or plasma creatine kinase measurement (enzymatic activity/volume)2020-06-23 10:30:00* Test Item Value Reference Range Interpretation Comments Creatine Kinase (test code = 2157-6) 69 30-200 [facility] Irving[facility]um or plasma creatine kinase MB measurement (mass/volume)2020-06-23 10:30:00* Test Item Value Reference Range Interpretation Comments Creatine Kinase MB (test code = 80085-6) 2.50 0-5.0 [facility] CenterTroponin I measurement by highly sensitive enzyme ozuvsdbfuzc9332-69-85 10:30:00* Test Item Value Reference Range Interpretation Comments Troponin I (test code = 52793-4) 0.015 0-0.300 [facility] Irving[facility] or plasma total bilirubin measurement (mass/volume)2020-06-23 06:20:00* Test Item Value Reference Range Interpretation Comments Total Bilirubin (test code = 1975-2) 0.6 0.2-1.2 [facility] CenterFluoroscopic procedure less than one hour ayvclnlr9654-12-29 06:20:00* Test Item Value Reference Range Interpretation Comments Aspartate Amino Transf (AST/SGOT) (test code = Aspartate Amino Transf (AST/SGOT)) 15 5-34 [facility] Irvinger[facility] or plasma alanine aminotransferase measurement (enzymatic activity/volume)2020-06-23 06:20:00* Test Item Value Reference Range Interpretation Comments Alanine Aminotransferase (ALT/SGPT) (test code = 1742-6) 12 0-55 [facility] Irving[facility] or plasma protein measurement (mass/volume)2020-06-23 06:20:00* Test Item Value Reference Range Interpretation Comments Total Protein (test code = 2885-2) 5.7 6.5-8.1 [facility] Irving[facility] or plasma albumin measurement (mass/volume)2020-06-23 06:20:00* Test Item Value Reference Range Interpretation Comments Albumin (test code = 1751-7) 3.3 3.5-5.0 [facility] CenterPlasma globulin measurement (mass/volume) 2020-06-23 06:20:00* Test Item Value Reference Range Interpretation Comments Globulin (test code = 76103-0) 2.4 2.3-3.5 [facility] or plasma albumin/globulin mass dkaef5180-72-18 06:20:00* Test Item Value Reference Range Interpretation Comments Albumin/Globulin Ratio (test code = 1759-0) 1.4 0.8-2.0 [facility] or plasma alkaline phosphatase measurement (enzymatic activity/volume)2020-06-23 06:20:00* Test Item Value Reference Range Interpretation Comments Alkaline Phosphatase (test code = 6768-6) 55 40-150 [facility] CenterUrine color svkpbowarhjzq7365-78-74 19:09:00* Test Item Value Reference Range Interpretation Comments Urine Color (test code = 5778-6) YELLOW YELLOW [facility] CenterUrine pjpwzbu1647-25-54 19:09:00* Test Item Value Reference Range Interpretation Comments Urine Clarity (test code = 94445-2) CLEAR CLEAR [facility] Irvingpecific gravity of Urine by Test strip 2020-06-22 19:09:00* Test Item Value Reference Range Interpretation Comments Urine Specific Mcgrath (test code = 5811-5) 1.010 1.010-1.02 5 [facility] CenterUrine pH measurement by automated test viezf1456-88-07 19:09:00* Test Item Value Reference Range Interpretation Comments Urine pH (test code = 04158-9) 5.5 5-7 [facility] CenterUrine leukocyte esterase detection by ptxfrhbd1430-33-00 19:09:00* Test Item Value Reference Range Interpretation Comments Urine Leukocyte Esterase (test code = 5799-2) NEGATIVE NEGATIVE [facility] CenterUrine nitrite tmwubazwa2361-01-83 19:09:00* Test Item Value Reference Range Interpretation Comments Urine Nitrite (test code = 68609-8) NEGATIVE NEGATIVE [facility] CenterUrine protein measurement by test strip (mass/volume)2020-06-22 19:09:00* Test Item Value Reference Range Interpretation Comments Urine Protein (test code = 5804-0) NEGATIVE NEGATIVE [facility] CenterUrine glucose fcixmmdba3724-02-29 19:09:00* Test Item Value Reference Range Interpretation Comments Urine Glucose (UA) (test code = 2349-9) NEGATIVE NEGATIVE [facility] CenterUrine ketones detection by automated test ireqy9408-79-27 19:09:00* Test Item Value Reference Range Interpretation Comments Urine Ketones (test code = 75586-6) NEGATIVE NEGATIVE [facility] CenterUrine urobilinogen measurement by test strip (mass/volume)2020-06-22 19:09:00* Test Item Value Reference Range Interpretation Comments Urine Urobilinogen (test code = 40274-7) 0.2 0.2-1 [facility] CenterUrine total bilirubin measurement (mass/volume)2020-06-22 19:09:00* Test Item Value Reference Range Interpretation Comments Urine Bilirubin (test code = 1978-6) NEGATIVE NEGATIVE [facility] CenterUrine erythrocytes fzepzqard3796-75-26 19:09:00* Test Item Value Reference Range Interpretation Comments Urine Blood (test code = 30774-6) NEGATIVE NEGATIVE [facility] CenterAutomated urine sediment leukocyte count by microscopy (number/high power field)2020-06-22 19:09:00* Test Item Value Reference Range Interpretation Comments Urine WBC (test code = 5821-4) NONE 0-5 [facility] CenterErythrocytes detection in urine sediment by light anxijnsxxu3446-31-18 19:09:00* Test Item Value Reference Range Interpretation Comments Urine RBC (test code = 71816-3) NONE 0-5 [facility] CenterBacteria detection in urine sediment by light miufjflcql8389-74-05 19:09:00* Test Item Value Reference Range Interpretation Comments Urine Bacteria (test code = 69201-6) NONE NONE [facility] CenterEpithelial cells detection in urine sediment by light tuvwuukrew3032-87-64 19:09:00* Test Item Value Reference Range Interpretation Comments Urine Epithelial Cells (test code = 48607-1) RARE NONE [facility] CenterCHEST SINGLE (PORTABLE)2020-06-22 17:05:00 [facility] [address] [place] [address] Patient Name: NOEMY ARGUETA MR #: [id number] : 1935 Age/Sex: 85/M Req #: [id number] [facility] Physician: Ordered by: PER AU MD Report #: [id number] Location: ER Room/Bed: Procedure: [id number] DX/CHEST SINGLE (PORTABLE) Exam Date: 06/22/20 Exam Time: 1650 REPORT STATUS: Signed EXAMINATION: CHEST SINGLE (PORTABLE) INDICATION: Fever and weakness. COMPARISON : None FINDINGS: TUBES and LINES: None. LUNGS: Normal lung volumes. There is patchy opacity at the bilateral lung bases, right mor e to left. No focal consolidation. PLEURA: No pleural effusion or pneumoth orax. HEART AND MEDIASTINUM: The cardiomediastinal silhouette is unremarka ble. There are atherosclerotic calcifications within the aorta. BONES AND SOFT TISSUES: Degenerative changes in the spine and shoulders. Soft tissues are unremarkable. UPPER ABDOMEN: No free air under the diaphragm. IMPRESSION: Patchy opacities in the bilateral lung bases which may repres ent atelectasis and/or multifocal pneumonia in the proper clinical context. Signed by: Riley Cervantes MD on 06/22/2020 5:06 PM Dictated By: HERMAN CERVANTES MD 05 Jacobsen scribed By: APOORVA on 06/22/201705 COPY TO: PER AU MD Erythrocyte sedimentation rate by Westergren buhxyc9988-19-48 15:55:00* Test Item Value Reference Range Interpretation Comments Erythrocyte Sedimentation Rate (test code = 4537-7) 18 0- 13 [facility] CenterFluoroscopic procedure less than one hour dkfnuzlh9322-40-84 15:55:00* Test Item Value Reference Range Interpretation Comments [...] under 564(g) of the ACT.Testing performed by [facility] [place], [place] [address]SQRCarl [facility]. [facility]all [facility] Medical CenterProthrombin time (PT) in platelet poor plasma by coagulation poqzd3282-03-10 15:19:00* Test Item Value Reference Range Interpretation Comments Prothrombin Time (test code = 5902-2) 13.8 11.9-14.5 [facility] CenterINR in Platelet poor plasma by Coagulation eqenb2217-97-69 15:19:00* Test Item Value Reference Range Interpretation Comments Prothromb Time International Ratio (test code = 6301-6) 1.01 Oral Anticoagulant Therapy INR Values:1. Low Intensity Therapy 1.5 - 2.02 . Moderate Intensity Therapy 2.0 - 3.03. High Intensity Therapy(1) 2.5 - 3. 54. High Intensity Therapy(2) 3.0 - 4.05. Panic Value INR > 5.0 [facility] CenterActivated partial thromboplastin time (aPTT) in platelet poor plasma by coagulation twzpx2464-75-35 15:19:00* Test Item Value Reference Range Interpretation Comments Activated Partial Thromboplast Time (test code = 28493-7) 28.3 23.8-35.5 [facility] CenterFluoroscopic procedure less than one hour nlizkknd2988-19-93 15:19:00* Test Item Value Reference Range Interpretation Comments Lactic Acid Level (test code = Lactic Acid Level) 1.4 0.5- 2.0 [facility] CenterBNP Nte-wWwb6902-74-23 15:19:00* Test Item Value Reference Range Interpretation Comments B-Type Natriuretic Peptide (test code = 19906-8) 42.4 0-100 [facility] CenterBlood wbbhdfd8172-14-11 15:11:00* Test Item Value Reference Range Interpretation Comments Blood Culture (test code = 23652421) NO GROWTH AFTER 72 HOURS [facility] CenterBacterial blood ikwoutq8317-40-57 15:11:00* Test Item Value Reference Range Interpretation Comments Blood Culture (test code = 600-7) STAPHYLOCOCCUS SP COAG NEG [facility] CenterBlowatonna clinic leukocytes automated count (number/volume)2020-06-10 05:35:00* Test Item Value Reference Range Interpretation Comments White Blood Count (test code = 6690-2) 5.95 4.8-10.8 [facility] erythrocytes automated count (number/volume)2020-06-10 05:35:00* Test Item Value Reference Range Interpretation Comments Red Blood Count (test code = 789-8) 3.85 4.3-5.7 [facility] (moles/volume)2020-06-10 05:35:00* Test Item Value Reference Range Interpretation Comments Hemoglobin (test code = 68146-4) 11.5 14.0-18.0 [facility] CenterAutomated blood hematocrit (volume fraction)2020-06-10 05:35:00* Test Item Value Reference Range Interpretation Comments Hematocrit (test code = 4544-3) 34.7 38.2-49.6 [facility] CenterAutomated erythrocyte mean corpuscular xfkoxz5560-04-68 05:35:00* Test Item Value Reference Range Interpretation Comments Mean Corpuscular Volume (test code = 787-2) 90.1 81-99 [facility] CenterAutomated erythrocyte mean corpuscular hemoglobin (mass per erythrocyte)2020-06-10 05:35:00* Test Item Value Reference Range Interpretation Comments Mean Corpuscular Hemoglobin (test code = 785-6) 29.9 28-32 [facility] CenterAutomated erythrocyte mean corpuscular hemoglobin concentration measurement (mass/volume)2020-06-10 05:35:00* Test Item Value Reference Range Interpretation Comments Mean Corpuscular Hemoglobin Concent (test code = 786-4) 33.1 31-35 [facility] CenterRDW JneZr-Ycr0526-28-11 05:35:00* Test Item Value Reference Range Interpretation Comments Red Cell Distribution Width (test code = 89038-0) 13.6 11.7 -14.4 [facility] CenterAutomated blood platelet count (count/volume)2020-06-10 05:35:00* Test Item Value Reference Range Interpretation Comments Platelet Count (test code = 777-3) 144 140-360 [facility] blood segmented neutrophil count as percentage of total jhqhwwnxvf1850-47-93 05:35:00* Test Item Value Reference Range Interpretation Comments Neutrophils (%) (Auto) (test code = 40569-8) 53.6 38.7-80.0 [facility] CenterAutomated blood lymphocyte count as percentage ot total jcykpoppay6464-18-91 05:35:00* Test Item Value Reference Range Interpretation Comments Lymphocytes (%) (Auto) (test code = 736-9) 32.3 18.0-39.1 [facility] blood monocyte count as percentage of total agflcsiabl0762-01-57 05:35:00* Test Item Value Reference Range Interpretation Comments Monocytes (%) (Auto) (test code = 5905-5) 11.3 4.4-11.3 [facility] CenterAutomated blood eosinophil count as percentage of total nocxlwoqtd2516-64-36 05:35:00* Test Item Value Reference Range Interpretation Comments Eosinophils (%) (Auto) (test code = 713-8) 1.7 0.0-6.0 [facility] CenterAutomated blood basophil count as percentage of total mfbtorfxba2831-80-19 05:35:00* Test Item Value Reference Range Interpretation Comments Basophils (%) (Auto) (test code = 706-2) 0.8 0.0-1.0 [facility] CenterFluoroscopic procedure less than one hour kgmpcsjy0000-32-52 05:35:00* Test Item Value Reference Range Interpretation Comments IM GRANULOCYTES % (test code = IM GRANULOCYTES %) 0.3 0.0- 1.0 [facility] CenterAutomated blood neutrophil count 2020-06-10 05:35:00* Test Item Value Reference Range Interpretation Comments Neutrophils # (Auto) (test code = 751-8) 3.2 2.1-6.9 [facility] CenterBlood lymphocytes count (number/volume) 2020-06-10 05:35:00* Test Item Value Reference Range Interpretation Comments Lymphocytes # (Auto) (test code = 60152-6) 1.9 1.0-3.2 [facility] monocytes automated count (number/volume)2020-06-10 05:35:00* Test Item Value Reference Range Interpretation Comments Monocytes # (Auto) (test code = 742-7) 0.7 0.2-0.8 [facility] CenterAutomated blood eosinophil count 2020-06-10 05:35:00* Test Item Value Reference Range Interpretation Comments Eosinophils # (Auto) (test code = 711-2) 0.1 0.0-0.4 [facility] CenterAutomated blood basophil count (count/volume)2020-06-10 05:35:00* Test Item Value Reference Range Interpretation Comments Basophils # (Auto) (test code = 704-7) 0.1 0.0-0.1 [facility] CenterFluoroscopic procedure less than one hour hoqdwihb7351-95-39 05:35:00* Test Item Value Reference Range Interpretation Comments Absolute Immature Granulocyte (auto (faye t code = Absolute Immature Granulocyte (auto) 0.02 0-0.1 [facility] Irving[facility] or plasma sodium measurement (moles/volume)2020-06-10 05:35:00* Test Item Value Reference Range Interpretation Comments Sodium Level (test code = 2951-2) 143 136-145 [facility] Irvingerum or plasma potassium measurement (moles/volume)2020-06-10 05:35:00* Test Item Value Reference Range Interpretation Comments Potassium Level (test code = 2823-3) 3.4 3.5-5.1 [facility] Irvinger[facility] or plasma chloride measurement (moles/volume)2020-06-10 05:35:00* Test Item Value Reference Range Interpretation Comments Chloride Level (test code = 2075-0) 110 98-107 [facility] Irvingerum or plasma carbon dioxide, total measurement (moles/volume)2020-06-10 05:35:00* Test Item Value Reference Range Interpretation Comments Carbon Dioxide Level (test code = 2028-9) 21 22-29 [facility] Irvingerum or plasma anion fva7927-84-28 05:35:00* Test Item Value Reference Range Interpretation Comments Anion Gap (test code = 19840-8) 15.4 8-16 [facility] Irvingerum or plasma urea nitrogen measurement (mass/volume)2020-06-10 05:35:00* Test Item Value Reference Range Interpretation Comments Blood Urea Nitrogen (test code = 3094-0) 7 7-26 [facility] Irving[facility] or plasma creatinine measurement (mass/volume)2020-06-10 05:35:00* Test Item Value Reference Range Interpretation Comments Creatinine (test code = 2160-0) 1.01 0.72-1.25 [facility] Irvingerum or plasma urea nitrogen/creatinine mass hiunz5032-65-41 05:35:00* Test Item Value Reference Range Interpretation Comments BUN/Creatinine Ratio (test code = 3097-3) 7 6-25 [facility] CenterEstimated glomerular filtration rate (GFR) totrilejrptie4124-04-42 05:35:00* Test Item Value Reference Range Interpretation Comments Estimat Glomerular Filtration Rate (test code = 079341396) > 60 >60 Ranges were taken from the National Kidney Disease Education Program and the [facility] Foundation literature.Reference ranges:60 or greater: Zypcju20-93 ( for 3 consecutive months): Chronic kidney disease 15 or less: Kidney failureCarl [facility]. Darnall Army Medical CenterGlucose xtvykdjnezs5830-67-61 05:35:00* Test Item Value Reference Range Interpretation Comments Glucose Level (test code = VCD9872) 85 74-118 [facility] Irvingerum or plasma calcium measurement (mass/volume)2020-06-10 05:35:00* Test Item Value Reference Range Interpretation Comments Calcium Level (test code = 67198-2) 8.0 8.4-10.2 [facility] CenterUrine color hnrclwscrxsfl8896-49-18 06:45:00* Test Item Value Reference Range Interpretation Comments Urine Color (test code = 5778-6) YELLOW YELLOW [facility] CenterUrine uqdbvuv5624-43-52 06:45:00* Test Item Value Reference Range Interpretation Comments Urine Clarity (test code = 96689-3) CLEAR CLEAR [facility] Irvingpecific gravity of Urine by Test strip 2020-06-09 06:45:00* Test Item Value Reference Range Interpretation Comments Urine Specific Mcgrath (test code = 5811-5) 1.015 1.010-1.02 5 [facility] CenterUrine pH measurement by automated test bagzz8371-41-83 06:45:00* Test Item Value Reference Range Interpretation Comments Urine pH (test code = 09749-6) 7 5-7 [facility] CenterUrine leukocyte esterase detection by hssnpzjj4442-62-61 06:45:00* Test Item Value Reference Range Interpretation Comments Urine Leukocyte Esterase (test code = 5799-2) NEGATIVE NEGATIVE [facility] CenterUrine nitrite yosyxbjcq5995-51-72 06:45:00* Test Item Value Reference Range Interpretation Comments Urine Nitrite (test code = 63631-8) NEGATIVE NEGATIVE [facility] CenterUrine protein measurement by test strip (mass/volume)2020-06-09 06:45:00* Test Item Value Reference Range Interpretation Comments Urine Protein (test code = 5804-0) NEGATIVE NEGATIVE [facility] CenterUrine glucose ymqupfypt1731-26-47 06:45:00* Test Item Value Reference Range Interpretation Comments Urine Glucose (UA) (test code = 2349-9) NEGATIVE NEGATIVE [facility] CenterUrine ketones detection by automated test kwbea8302-27-41 06:45:00* Test Item Value Reference Range Interpretation Comments Urine Ketones (test code = 05264-8) NEGATIVE NEGATIVE [facility] CenterUrine urobilinogen measurement by test strip (mass/volume)2020-06-09 06:45:00* Test Item Value Reference Range Interpretation Comments Urine Urobilinogen (test code = 13189-8) 0.2 0.2-1 [facility] CenterUrine total bilirubin measurement (mass/volume)2020-06-09 06:45:00* Test Item Value Reference Range Interpretation Comments Urine Bilirubin (test code = 1978-6) NEGATIVE NEGATIVE [facility] CenterUrine erythrocytes dcfrwcgrw0979-73-04 06:45:00* Test Item Value Reference Range Interpretation Comments Urine Blood (test code = 01070-8) TRACE NEGATIVE [facility] CenterAutomated urine sediment leukocyte count by microscopy (number/high power field)2020-06-09 06:45:00* Test Item Value Reference Range Interpretation Comments Urine WBC (test code = 5821-4) 0-5 0-5 [facility] CenterErythrocytes detection in urine sediment by light xzkdtrgmhf0849-53-93 06:45:00* Test Item Value Reference Range Interpretation Comments Urine RBC (test code = 45165-0) NONE 0-5 [facility] CenterBacteria detection in urine sediment by light jxlpdkqzcf9935-66-63 06:45:00* Test Item Value Reference Range Interpretation Comments Urine Bacteria (test code = 14536-9) RARE NONE [facility] CenterEpithelial cells detection in urine sediment by light fwzlilatei7755-55-73 06:45:00* Test Item Value Reference Range Interpretation Comments Urine Epithelial Cells (test code = 21716-8) RARE NONE [facility] Irvingerum or plasma total bilirubin measurement (mass/volume)2020-06-09 00:10:00* Test Item Value Reference Range Interpretation Comments Total Bilirubin (test code = 1975-2) 0.4 0.2-1.2 [facility] CenterFluoroscopic procedure less than one hour rwcnkmpl1237-27-08 00:10:00* Test Item Value Reference Range Interpretation Comments Aspartate Amino Transf (AST/SGOT) (test code = Aspartate Amino Transf (AST/SGOT)) 12 5-34 [facility] Irvinger[facility] or plasma alanine aminotransferase measurement (enzymatic activity/volume)2020-06-09 00:10:00* Test Item Value Reference Range Interpretation Comments Alanine Aminotransferase (ALT/SGPT) (test code = 1742-6) 11 0-55 [facility] Irvinger[facility] or plasma protein measurement (mass/volume)2020-06-09 00:10:00* Test Item Value Reference Range Interpretation Comments Total Protein (test code = 2885-2) 5.7 6.5-8.1 [facility] Irving[facility] or plasma albumin measurement (mass/volume)2020-06-09 00:10:00* Test Item Value Reference Range Interpretation Comments Albumin (test code = 1751-7) 3.5 3.5-5.0 [facility] CenterPlasma globulin measurement (mass/volume) 2020-06-09 00:10:00* Test Item Value Reference Range Interpretation Comments Globulin (test code = 22401-1) 2.2 2.3-3.5 [facility] Irving[facility] or plasma albumin/globulin mass afvwv3266-81-47 00:10:00* Test Item Value Reference Range Interpretation Comments Albumin/Globulin Ratio (test code = 1759-0) 1.6 0.8-2.0 [facility] Irving[facility] or plasma alkaline phosphatase measurement (enzymatic activity/volume)2020-06-09 00:10:00* Test Item Value Reference Range Interpretation Comments Alkaline Phosphatase (test code = 6768-6) 51 40-150 [facility] Irvingerum or plasma amylase measurement (enzymatic activity/volume)2020-06-09 00:10:00* Test Item Value Reference Range Interpretation Comments Amylase Level (test code = 1798-8) 33 25-125 [facility] Irvinger[facility] or plasma lipase measurement (enzymatic activity/volume)2020-06-09 00:10:00* Test Item Value Reference Range Interpretation Comments Lipase (test code = 3040-3) 15 [facility] CenterFree thyroxine eeocq4895-20-71 00:10:00* Test Item Value Reference Range Interpretation Comments Free Thyroxine Index (test code = 94196-7) 2.7307 1.4-3.8 [facility] Irvingerum or plasma thyroxine (T4) measurement (mass/volume)2020-06-09 00:10:00* Test Item Value Reference Range Interpretation Comments Thyroxine (T4) (test code = 3026-2) 7.82 4.5-10.9 [facility] Irvingerum or plasma triiodothyronine resin uptake (T3RU)2020-06-09 00:10:00* Test Item Value Reference Range Interpretation Comments Triiodothyronine (T3) Uptake (test code = 3050-2) 34.92 22.5 -37.0 [facility] Irvingerum or plasma thyrotropin measurement by detection limit <= 0.005 miu/l (units/volume)2020-06-09 00:10:00* Test Item Value Reference Range Interpretation Comments Thyroid Stimulating Hormone (TSH) (test code = 26665-0) 1.865 0.350-4.940 [facility] Irvinger[facility] or plasma amylase measurement (enzymatic activity/volume)2020-06-09 00:10:00* Test Item Value Reference Range Interpretation Comments Amylase Level (test code = 1798-8) 33 25-125 [facility] Irvinger[facility] or plasma lipase measurement (enzymatic activity/volume)2020-06-09 00:10:00* Test Item Value Reference Range Interpretation Comments Lipase (test code = 3040-3) 15 [facility] CenterFree thyroxine wfcpx7239-17-21 00:10:00* Test Item Value Reference Range Interpretation Comments Free Thyroxine Index (test code = 93465-9) 2.7307 1.4-3.8 [facility] Irving[facility] or plasma thyroxine (T4) measurement (mass/volume)2020-06-09 00:10:00* Test Item Value Reference Range Interpretation Comments Thyroxine (T4) (test code = 3026-2) 7.82 4.5-10.9 [facility] Irvingerum or plasma triiodothyronine resin uptake (T3RU)2020-06-09 00:10:00* Test Item Value Reference Range Interpretation Comments Triiodothyronine (T3) Uptake (test code = 3050-2) 34.92 22.5 -37.0 [facility] Irvingerum or plasma thyrotropin measurement by detection limit <= 0.005 miu/l (units/volume)2020-06-09 00:10:00* Test Item Value Reference Range Interpretation Comments Thyroid Stimulating Hormone (TSH) (test code = 61493-8) 1.865 0.350-4.940 [facility] CenterFluoroscopic procedure less than one hour wvkgxohm6340-84-36 22:05:00* Test Item Value Reference Range Interpretation Comments Coronavirus (PCR) (test code = Coronavirus (PCR)) NOT DETECTED NOTD ETECTED SARS-CoV-2 PCRHologic Aptima SARS-CoV-2 assay is a nucleic amplification test in tended for the qualitative detection of RNA from SARS-CoV-2 from nasopharyngeal ([employer]) specimens. It is used under Emergency Use Authorization (EUA) by FDA.A posi tive result is indicative of the presence of SARS-CoV-2 RNA. Clinical correlatio n with patient history and other diagnostic information is necessary to determin e patient infection status.A negative (Not Detected) result does not preclude SA RS-CoV-2 infection. Clinical Correlation with patient history and other diagnost ic information should be used in patient management decisions.Invalid: Unable to generate a valid result on this specimen. Please submit a new specimen for repr at testing oc clinically indicated.Tesing performed by:[facility] Laboratory Services[address] [place] [address] [id number], Cindy garcia MD, PhDCarl R. [facility]arnall Army Medical CenterCXR 2 VIEW - [id number] 19:03:00 [place] [address] Patient Name: NOEMY ARGUETA MR #: [id number] : 1935 Age/Sex: 84/M Req #: [id number] Adm Physician: Ordered by: RACQUEL DELGADO MD Report #: [id number] Location: [facility] Room/Bed: Procedure: [id number] HOPD/CXR 2 VIE W - HOPD Exam Date: 06/08/20 Exam Time: 1838 REPORT STATUS: Signed EXAMINATION: CXR 2 VIEW - HOPD INDICATION: Nausea. COMPARISON: Chest x-ray on 03/30. FINDINGS: TUBES and LINES: None. LUNGS: Normal l huseyin volumes. Lungs are clear. No consolidations. Bibasilar atelectasis. PLEURA: No pleural effusion or pneumothorax. HEART AND MEDIASTINUM: The cardiomediastinal silhouette is unremarkable. There is atherosclerotic calcifi cation of the thoracic aortic arch. BONES AND SOFT TISSUES: No acute osseo us lesion. Multiple healed right rib fractures are unchanged. Soft tissues ar e unremarkable. UPPER ABDOMEN: No free air under the diaphragm. IM PRESSION: No acute thoracic radiographic abnormality. Signed by: Radha Cervantes MD on 06/08/2020 7:09 PM Dictated By: RILEY CERVANTES MD [facility] Signed By: RILEY CERVANTES MD on 06/08/201908 Transcribed By: APOORVA on 06/08/201908 COPY TO: RACQUEL DELGADO MD CT ABDOMEN/PELVIS [id number] 17:22:00 [place] [address] Patient Name: NOEMY ARGUETA MR #: [id number] : 1935 Age/Sex: 84/M Req #: [id number] [facility] Physician: Ordered by: PER AU MD Report #: [id number] Location: ER Room/Bed: Procedure: [id number] CT/CT ABDOMEN/P JASON MESA Exam Date: 05/20/20 Exam Time: 1707 REPORT STATUS: Signed CT Abdomen and Pe lvis without contrast INDICATION: nausea, constipation, abd discomfort 20200520 TECHNIQUE: Thin collimation axial images obtained from the diaphragm to the level of the pubic symphysis without nonionic intravenou s contrast. Oral contrast was administered. Dose reduction techniques use d: Automated exposure control, adjustment of the mAs and/or kVp according to p atient size, standardized low-dose protocol, and/or iterative reconstruction t echnique. RADIATION DOSE: Total DLP: 636.91 mGy*cm Estimated effective dose: (DLP x 0.015 x size factor) mSv CTDIvol has been reviewed . It is below the limits set by the Radiation Protocol Committee (RPC). C OMPARISON: CT abdomen/pelvis 05/12/2020. ABDOMEN FINDINGS: Lung Bases: Stable eventration right diaphragm. Chronic subsegmental atelectasis of the o verlying lung. There is mild reticulation of the lung bases, right lung more s evere than the left, suggestive of fibrosis. Stable bilateral lower lobe cylin drical bronchiectasis. The visualized portion of the mediastinum is normal in size with aortic and mitral valve calcifications and heavy coronary artery emmy cifications. Liver: Normal in attenuation without mass. Gallbladder: A bsent. No ductal dilatation. Pancreas: Diffuse fatty atrophy without mass or ductal dilatation. Spleen: Normal size without mass. Adrenal Glands : No evidence for mass. Kidneys: Right: No renal calculus. Multiple cyst s, the largest measuring 3.6 cm. Solid mildly hyperattenuating lesion in the l ower pole measures 7 mm and is stable. No calculus or hydronephrosis Lef t: 7 mm calculus in the interpolar region and lower pole are stable. No jeannie ical mass or hydronephrosis. Lymph Nodes: No lymphadenopathy. Aorta: Normal in diameter with scattered calcifications PELVIS FINDINGS: Osseo el: Stomach: Normal. Small Bowel: Enteric contrast extends into the mid small bowel. Multiple diverticula of the second and third portion of the duod enum. Small bowel is normal in diameter with normal wall thickness. Large Bowel: Moderate burden of semisolid stool throughout. No evidence of inspissa dee stool or large stool ball in the rectum. No focal mural thickening or annabelle colonic inflammation. Appendix: Not visualized. Bladder: Well-distende d. Mild circumferential mural thickening is stable. Ureters: No ureteral di latation or calculus. Prostate: Radiation seeds redemonstrated. Seminal ves icles appear normal. Bones: Stable degenerative changes of the spine with m ultiple Schmorl's nodes. Mild levoscoliosis of the lumbar spine. No destructiv e lesions. Healed fracture deformities of multiple right and left ribs. S oft tissues: Stable small fat-containing umbilical hernia. IMPRESSION: 1. Moderate burden of semisolid stool throughout the large bowel. No evidence of bowel obstruction or inflammation. 2. Hyperattenuating cortical lesio n in the lower pole of the right kidney remains concerning for RCC. 3. St able left intrarenal calculi. No operative uropathy. 4. Mild bladder wall t hickening, possibly the result of outlet obstruction from prostate hypertrophy . Signed by: Dr. Ericka Garcia MD on 05/20/2020 5:34 PM Dictated By: ERICKA GARCIA MD 33 COPY TO: NATHALIE AU MD Urine color qgcteecwavrvn2893-04-01 16:58:00* Test Item Value Reference Range Interpretation Comments Urine Color (test code = 5778-6) YELLOW YELLOW [facility]vineUrine vigyxwj3881-39-10 16:58:00* Test Item Value Reference Range Interpretation Comments Urine Clarity (test code = 25161-0) SL CLOUDY CLEAR [facility] Irvingpecific gravity of Urine by Test strip 2020-05-20 16:58:00* Test Item Value Reference Range Interpretation Comments Urine Specific Mcgrath (test code = 5811-5) 1.010 1.010-1.02 5 [facility] CenterUrine pH measurement by automated test djrwy2173-49-06 16:58:00* Test Item Value Reference Range Interpretation Comments Urine pH (test code = 52212-8) 6 5-7 [facility] CenterUrine leukocyte esterase detection by iboioewq5129-74-46 16:58:00* Test Item Value Reference Range Interpretation Comments Urine Leukocyte Esterase (test code = 5799-2) NEGATIVE NEGATIVE [facility] CenterUrine nitrite jmoqdhovy6182-20-44 16:58:00* Test Item Value Reference Range Interpretation Comments Urine Nitrite (test code = 68856-3) NEGATIVE NEGATIVE [facility] CenterUrine protein measurement by test strip (mass/volume)2020-05-20 16:58:00* Test Item Value Reference Range Interpretation Comments Urine Protein (test code = 5804-0) NEGATIVE NEGATIVE [facility] CenterUrine glucose zsyrywwnb8695-93-24 16:58:00* Test Item Value Reference Range Interpretation Comments Urine Glucose (UA) (test code = 2349-9) NEGATIVE NEGATIVE [facility] CenterUrine ketones detection by automated test qnqpe6367-27-93 16:58:00* Test Item Value Reference Range Interpretation Comments Urine Ketones (test code = 01034-3) NEGATIVE NEGATIVE [facility] CenterUrine urobilinogen measurement by test strip (mass/volume)2020-05-20 16:58:00* Test Item Value Reference Range Interpretation Comments Urine Urobilinogen (test code = 33984-6) 0.2 0.2-1 [facility] CenterUrine total bilirubin measurement (mass/volume)2020-05-20 16:58:00* Test Item Value Reference Range Interpretation Comments Urine Bilirubin (test code = 1978-6) NEGATIVE NEGATIVE [facility] CenterUrine erythrocytes ejywshiom8944-30-06 16:58:00* Test Item Value Reference Range Interpretation Comments Urine Blood (test code = 61228-0) NEGATIVE NEGATIVE [facility] CenterAutomated urine sediment leukocyte count by microscopy (number/high power field)2020-05-20 16:58:00* Test Item Value Reference Range Interpretation Comments Urine WBC (test code = 5821-4) NONE 0-5 [facility] CenterErythrocytes detection in urine sediment by light vzefnsscco4828-27-45 16:58:00* Test Item Value Reference Range Interpretation Comments Urine RBC (test code = 76046-1) NONE 0-5 [facility] CenterBacteria detection in urine sediment by light ckldoihhem3180-91-90 16:58:00* Test Item Value Reference Range Interpretation Comments Urine Bacteria (test code = 53878-5) FEW NONE [facility] CenterEpithelial cells detection in urine sediment by light ocjfmgnpdv7014-11-19 16:58:00* Test Item Value Reference Range Interpretation Comments Urine Epithelial Cells (test code = 97259-4) RARE NONE [facility] CenterUrine color lhnijbbktsaij2927-52-16 16:58:00* Test Item Value Reference Range Interpretation Comments Urine Color (test code = 5778-6) YELLOW YELLOW [facility] CenterUrine eelryjq8585-56-19 16:58:00* Test Item Value Reference Range Interpretation Comments Urine Clarity (test code = 42815-0) SL CLOUDY CLEAR [facility] Irvingpecific gravity of Urine by Test strip 2020-05-20 16:58:00* Test Item Value Reference Range Interpretation Comments Urine Specific Mcgrath (test code = 5811-5) 1.010 1.010-1.02 5 [facility] CenterUrine pH measurement by automated test rwcll7611-03-00 16:58:00* Test Item Value Reference Range Interpretation Comments Urine pH (test code = 76835-1) 6 5-7 [facility] CenterUrine leukocyte esterase detection by lumnfmxt5900-76-17 16:58:00* Test Item Value Reference Range Interpretation Comments Urine Leukocyte Esterase (test code = 5799-2) NEGATIVE NEGATIVE [facility] CenterUrine nitrite lkjqnbcit5018-48-13 16:58:00* Test Item Value Reference Range Interpretation Comments Urine Nitrite (test code = 59320-4) NEGATIVE NEGATIVE [facility] CenterUrine protein measurement by test strip (mass/volume)2020-05-20 16:58:00* Test Item Value Reference Range Interpretation Comments Urine Protein (test code = 5804-0) NEGATIVE NEGATIVE [facility] CenterUrine glucose szozwzksc6492-79-06 16:58:00* Test Item Value Reference Range Interpretation Comments Urine Glucose (UA) (test code = 2349-9) NEGATIVE NEGATIVE [facility] CenterUrine ketones detection by automated test lrlog3637-80-05 16:58:00* Test Item Value Reference Range Interpretation Comments Urine Ketones (test code = 75642-4) NEGATIVE NEGATIVE [facility] CenterUrine urobilinogen measurement by test strip (mass/volume)2020-05-20 16:58:00* Test Item Value Reference Range Interpretation Comments Urine Urobilinogen (test code = 22380-9) 0.2 0.2-1 [facility] CenterUrine total bilirubin measurement (mass/volume)2020-05-20 16:58:00* Test Item Value Reference Range Interpretation Comments Urine Bilirubin (test code = 1978-6) NEGATIVE NEGATIVE [facility] CenterUrine erythrocytes mrvfxzdwl7840-58-21 16:58:00* Test Item Value Reference Range Interpretation Comments Urine Blood (test code = 95495-4) NEGATIVE NEGATIVE [facility] CenterAutomated urine sediment leukocyte count by microscopy (number/high power field)2020-05-20 16:58:00* Test Item Value Reference Range Interpretation Comments Urine WBC (test code = 5821-4) NONE 0-5 [facility] CenterErythrocytes detection in urine sediment by light doiunsouab7068-27-24 16:58:00* Test Item Value Reference Range Interpretation Comments Urine RBC (test code = 96315-0) NONE 0-5 [facility] CenterBacteria detection in urine sediment by light mkqfbxtvgy3613-50-00 16:58:00* Test Item Value Reference Range Interpretation Comments Urine Bacteria (test code = 57900-9) FEW NONE [facility] CenterEpithelial cells detection in urine sediment by light wnbflqucct3448-00-65 16:58:00* Test Item Value Reference Range Interpretation Comments Urine Epithelial Cells (test code = 08467-3) RARE NONE [facility] CenterBlood leukocytes automated count (number/volume)2020-05-20 15:36:00* Test Item Value Reference Range Interpretation Comments White Blood Count (test code = 6690-2) 8.36 4.8-10.8 [facility] CenterBlowatonna clinic erythrocytes automated count (number/volume)2020-05-20 15:36:00* Test Item Value Reference Range Interpretation Comments Red Blood Count (test code = 789-8) 5.04 4.3-5.7 [facility] CenterBlood hemoglobin measurement (moles/volume)2020-05-20 15:36:00* Test Item Value Reference Range Interpretation Comments Hemoglobin (test code = 86520-9) 15.1 14.0-18.0 [facility] CenterAutomated blood hematocrit (volume fraction)2020-05-20 15:36:00* Test Item Value Reference Range Interpretation Comments Hematocrit (test code = 4544-3) 45.8 38.2-49.6 [facility] CenterAutomated erythrocyte mean corpuscular ancuby2674-57-93 15:36:00* Test Item Value Reference Range Interpretation Comments Mean Corpuscular Volume (test code = 787-2) 90.9 81-99 [facility] CenterAutomated erythrocyte mean corpuscular hemoglobin (mass per erythrocyte)2020-05-20 15:36:00* Test Item Value Reference Range Interpretation Comments Mean Corpuscular Hemoglobin (test code = 785-6) 30.0 28-32 [facility] CenterAutomated erythrocyte mean corpuscular hemoglobin concentration measurement (mass/volume)2020-05-20 15:36:00* Test Item Value Reference Range Interpretation Comments Mean Corpuscular Hemoglobin Concent (test code = 786-4) 33.0 31-35 [facility] CenterRDW YvoUv-Vhw8937-56-21 15:36:00* Test Item Value Reference Range Interpretation Comments Red Cell Distribution Width (test code = 71490-9) 14.0 11.7 -14.4 [facility] CenterAutomated blood platelet count (count/volume)2020-05-20 15:36:00* Test Item Value Reference Range Interpretation Comments Platelet Count (test code = 777-3) 187 140-360 [facility] CenterAutomated blood segmented neutrophil count as percentage of total oodhsexnqj2234-39-36 15:36:00* Test Item Value Reference Range Interpretation Comments Neutrophils (%) (Auto) (test code = 58851-4) 65.9 38.7-80.0 [facility] CenterAutomated blood lymphocyte count as percentage ot total mcwwocrtkz2670-51-18 15:36:00* Test Item Value Reference Range Interpretation Comments Lymphocytes (%) (Auto) (test code = 736-9) 24.4 18.0-39.1 [facility] CenterAutomated blood monocyte count as percentage of total koxlxvuswi6495-74-96 15:36:00* Test Item Value Reference Range Interpretation Comments Monocytes (%) (Auto) (test code = 5905-5) 8.1 4.4-11.3 [facility] CenterAutomated blood eosinophil count as percentage of total oqnmcxszee3399-81-01 15:36:00* Test Item Value Reference Range Interpretation Comments Eosinophils (%) (Auto) (test code = 713-8) 0.6 0.0-6.0 [facility] CenterAutomated blood basophil count as percentage of total orozlyxftb1087-55-37 15:36:00* Test Item Value Reference Range Interpretation Comments Basophils (%) (Auto) (test code = 706-2) 0.6 0.0-1.0 [facility] CenterFluoroscopic procedure less than one hour nxyoaquw1536-24-31 15:36:00* Test Item Value Reference Range Interpretation Comments IM GRANULOCYTES % (test code = IM GRANULOCYTES %) 0.4 0.0- 1.0 [facility] CenterAutomated blood neutrophil count 2020-05-20 15:36:00* Test Item Value Reference Range Interpretation Comments Neutrophils # (Auto) (test code = 751-8) 5.5 2.1-6.9 [facility] CenterBlood lymphocytes count (number/volume) 2020-05-20 15:36:00* Test Item Value Reference Range Interpretation Comments Lymphocytes # (Auto) (test code = 89821-9) 2.0 1.0-3.2 [facility] CenterBlood monocytes automated count (number/volume)2020-05-20 15:36:00* Test Item Value Reference Range Interpretation Comments Monocytes # (Auto) (test code = 742-7) 0.7 0.2-0.8 [facility] CenterAutomated blood eosinophil count 2020-05-20 15:36:00* Test Item Value Reference Range Interpretation Comments Eosinophils # (Auto) (test code = 711-2) 0.1 0.0-0.4 [facility] CenterAutomated blood basophil count (count/volume)2020-05-20 15:36:00* Test Item Value Reference Range Interpretation Comments Basophils # (Auto) (test code = 704-7) 0.1 0.0-0.1 [facility] CenterFluoroscopic procedure less than one hour nwxqnzvh6908-35-64 15:36:00* Test Item Value Reference Range Interpretation Comments Absolute Immature Granulocyte (auto (faye t code = Absolute Immature Granulocyte (auto) 0.03 0-0.1 [facility] Irvingerum or plasma sodium measurement (moles/volume)2020-05-20 15:36:00* Test Item Value Reference Range Interpretation Comments Sodium Level (test code = 2951-2) 140 136-145 [facility] Irvingerum or plasma potassium measurement (moles/volume)2020-05-20 15:36:00* Test Item Value Reference Range Interpretation Comments Potassium Level (test code = 2823-3) 4.1 3.5-5.1 [facility] Irvingerum or plasma chloride measurement (moles/volume)2020-05-20 15:36:00* Test Item Value Reference Range Interpretation Comments Chloride Level (test code = 2075-0) 104 98-107 [facility] Irvingerum or plasma carbon dioxide, total measurement (moles/volume)2020-05-20 15:36:00* Test Item Value Reference Range Interpretation Comments Carbon Dioxide Level (test code = 2028-9) 23 22-29 [facility] Irvingerum or plasma anion hjp6995-52-98 15:36:00* Test Item Value Reference Range Interpretation Comments Anion Gap (test code = 23274-4) 17.1 8-16 [facility] Irvingerum or plasma urea nitrogen measurement (mass/volume)2020-05-20 15:36:00* Test Item Value Reference Range Interpretation Comments Blood Urea Nitrogen (test code = 3094-0) 12 7-26 [facility] Irvingerum or plasma creatinine measurement (mass/volume)2020-05-20 15:36:00* Test Item Value Reference Range Interpretation Comments Creatinine (test code = 2160-0) 1.31 0.72-1.25 [facility] Irvingerum or plasma urea nitrogen/creatinine mass fnxai6485-98-16 15:36:00* Test Item Value Reference Range Interpretation Comments BUN/Creatinine Ratio (test code = 3097-3) 9 6-25 [facility] CenterEstimated glomerular filtration rate (GFR) qodzncaexxwcw0849-31-86 15:36:00* Test Item Value Reference Range Interpretation Comments Estimat Glomerular Filtration Rate (test code = 474562641) 52 >60 Ranges were taken from the National Kidney Disease Education Program and the [facility] Kid[facility] Foundation literature.Reference ranges:60 or greater: Nfzcfj71-27 ( for 3 consecutive months): Chronic kidney disease 15 or less: Kidney failureCarl R. Darnall Army Medical CenterGlucose lrfnpszlmve8260-07-61 15:36:00* Test Item Value Reference Range Interpretation Comments Glucose Level (test code = BUT3381) 120 74-118 [facility] Irvingerum or plasma calcium measurement (mass/volume)2020-05-20 15:36:00* Test Item Value Reference Range Interpretation Comments Calcium Level (test code = 71153-7) 9.6 8.4-10.2 [facility] Irvingerum or plasma magnesium measurement (mass/volume)2020-05-20 15:36:00* Test Item Value Reference Range Interpretation Comments Magnesium Level (test code = 82012-1) 1.5 1.3-2.1 [facility] Irvingerum or plasma total bilirubin measurement (mass/volume)2020-05-20 15:36:00* Test Item Value Reference Range Interpretation Comments Total Bilirubin (test code = 1975-2) 0.5 0.2-1.2 [facility] CenterFluoroscopic procedure less than one hour zeqwragz8908-72-80 15:36:00* Test Item Value Reference Range Interpretation Comments Aspartate Amino Transf (AST/SGOT) (test code = Aspartate Amino Transf (AST/SGOT)) 15 5-34 [facility] Irvingerum or plasma alanine aminotransferase measurement (enzymatic activity/volume)2020-05-20 15:36:00* Test Item Value Reference Range Interpretation Comments Alanine Aminotransferase (ALT/SGPT) (test code = 1742-6) 10 0-55 [facility] Irvingerum or plasma protein measurement (mass/volume)2020-05-20 15:36:00* Test Item Value Reference Range Interpretation Comments Total Protein (test code = 2885-2) 7.6 6.5-8.1 [facility] Irvingerum or plasma albumin measurement (mass/volume)2020-05-20 15:36:00* Test Item Value Reference Range Interpretation Comments Albumin (test code = 1751-7) 4.0 3.5-5.0 [facility] CenterPlasma globulin measurement (mass/volume) 2020-05-20 15:36:00* Test Item Value Reference Range Interpretation Comments Globulin (test code = 56398-1) 3.6 2.3-3.5 [facility] Irvingerum or plasma albumin/globulin mass ixbei8160-45-55 15:36:00* Test Item Value Reference Range Interpretation Comments Albumin/Globulin Ratio (test code = 1759-0) 1.1 0.8-2.0 [facility] Irvingerum or plasma alkaline phosphatase measurement (enzymatic activity/volume)2020-05-20 15:36:00* Test Item Value Reference Range Interpretation Comments Alkaline Phosphatase (test code = 6768-6) 54 40-150 [facility] CenterBlood leukocytes automated count (number/volume)2020-05-20 15:36:00* Test Item Value Reference Range Interpretation Comments White Blood Count (test code = 6690-2) 8.36 4.8-10.8 [facility] CenterBlood erythrocytes automated count (number/volume)2020-05-20 15:36:00* Test Item Value Reference Range Interpretation Comments Red Blood Count (test code = 789-8) 5.04 4.3-5.7 [facility] CenterBlood hemoglobin measurement (moles/volume)2020-05-20 15:36:00* Test Item Value Reference Range Interpretation Comments Hemoglobin (test code = 77169-0) 15.1 14.0-18.0 [facility] CenterAutomated blood hematocrit (volume fraction)2020-05-20 15:36:00* Test Item Value Reference Range Interpretation Comments Hematocrit (test code = 4544-3) 45.8 38.2-49.6 [facility] CenterAutomated erythrocyte mean corpuscular qmklrs4894-10-69 15:36:00* Test Item Value Reference Range Interpretation Comments Mean Corpuscular Volume (test code = 787-2) 90.9 81-99 [facility] CenterAutomated erythrocyte mean corpuscular hemoglobin (mass per erythrocyte)2020-05-20 15:36:00* Test Item Value Reference Range Interpretation Comments Mean Corpuscular Hemoglobin (test code = 785-6) 30.0 28-32 [facility] CenterAutomated erythrocyte mean corpuscular hemoglobin concentration measurement (mass/volume)2020-05-20 15:36:00* Test Item Value Reference Range Interpretation Comments Mean Corpuscular Hemoglobin Concent (test code = 786-4) 33.0 31-35 [facility] CenterRDW GgeHt-Pjy3084-93-21 15:36:00* Test Item Value Reference Range Interpretation Comments Red Cell Distribution Width (test code = 03694-6) 14.0 11.7 -14.4 [facility] CenterAutomated blood platelet count (count/volume)2020-05-20 15:36:00* Test Item Value Reference Range Interpretation Comments Platelet Count (test code = 777-3) 187 140-360 [facility] CenterAutomated blood segmented neutrophil count as percentage of total zgwmtuytnh2452-70-25 15:36:00* Test Item Value Reference Range Interpretation Comments Neutrophils (%) (Auto) (test code = 12225-4) 65.9 38.7-80.0 [facility] CenterAutomated blood lymphocyte count as percentage ot total mezwpqtaod5818-89-10 15:36:00* Test Item Value Reference Range Interpretation Comments Lymphocytes (%) (Auto) (test code = 736-9) 24.4 18.0-39.1 [facility] CenterAutomated blood monocyte count as percentage of total qaqnwllgka2234-43-93 15:36:00* Test Item Value Reference Range Interpretation Comments Monocytes (%) (Auto) (test code = 5905-5) 8.1 4.4-11.3 [facility] CenterAutomated blood eosinophil count as percentage of total ecnylqbxyx9914-36-20 15:36:00* Test Item Value Reference Range Interpretation Comments Eosinophils (%) (Auto) (test code = 713-8) 0.6 0.0-6.0 [facility] CenterAutomated blood basophil count as percentage of total ttpvcjowty6531-57-40 15:36:00* Test Item Value Reference Range Interpretation Comments Basophils (%) (Auto) (test code = 706-2) 0.6 0.0-1.0 [facility] CenterFluoroscopic procedure less than one hour hcnacsqz8793-33-75 15:36:00* Test Item Value Reference Range Interpretation Comments IM GRANULOCYTES % (test code = IM GRANULOCYTES %) 0.4 0.0- 1.0 [facility] CenterAutomated blood neutrophil count 2020-05-20 15:36:00* Test Item Value Reference Range Interpretation Comments Neutrophils # (Auto) (test code = 751-8) 5.5 2.1-6.9 [facility] CenterBlood lymphocytes count (number/volume) 2020-05-20 15:36:00* Test Item Value Reference Range Interpretation Comments Lymphocytes # (Auto) (test code = 96483-1) 2.0 1.0-3.2 [facility] CenterBlood monocytes automated count (number/volume)2020-05-20 15:36:00* Test Item Value Reference Range Interpretation Comments Monocytes # (Auto) (test code = 742-7) 0.7 0.2-0.8 [facility] CenterAutomated blood eosinophil count 2020-05-20 15:36:00* Test Item Value Reference Range Interpretation Comments Eosinophils # (Auto) (test code = 711-2) 0.1 0.0-0.4 [facility] CenterAutomated blood basophil count (count/volume)2020-05-20 15:36:00* Test Item Value Reference Range Interpretation Comments Basophils # (Auto) (test code = 704-7) 0.1 0.0-0.1 [facility] CenterFluoroscopic procedure less than one hour ovynvhqy7913-09-33 15:36:00* Test Item Value Reference Range Interpretation Comments Absolute Immature Granulocyte (auto (faye t code = Absolute Immature Granulocyte (auto) 0.03 0-0.1 [facility] Irvingerum or plasma sodium measurement (moles/volume)2020-05-20 15:36:00* Test Item Value Reference Range Interpretation Comments Sodium Level (test code = 2951-2) 140 136-145 [facility] Irvingerum or plasma potassium measurement (moles/volume)2020-05-20 15:36:00* Test Item Value Reference Range Interpretation Comments Potassium Level (test code = 2823-3) 4.1 3.5-5.1 [facility] Irvingerum or plasma chloride measurement (moles/volume)2020-05-20 15:36:00* Test Item Value Reference Range Interpretation Comments Chloride Level (test code = 2075-0) 104 98-107 [facility] Irvingerum or plasma carbon dioxide, total measurement (moles/volume)2020-05-20 15:36:00* Test Item Value Reference Range Interpretation Comments Carbon Dioxide Level (test code = 2028-9) 23 22-29 [facility] Irvingerum or plasma anion jxe8073-95-56 15:36:00* Test Item Value Reference Range Interpretation Comments Anion Gap (test code = 67176-7) 17.1 8-16 [facility] Irvingerum or plasma urea nitrogen measurement (mass/volume)2020-05-20 15:36:00* Test Item Value Reference Range Interpretation Comments Blood Urea Nitrogen (test code = 3094-0) 12 7-26 [facility] Irvingerum or plasma creatinine measurement (mass/volume)2020-05-20 15:36:00* Test Item Value Reference Range Interpretation Comments Creatinine (test code = 2160-0) 1.31 0.72-1.25 [facility] Irvingerum or plasma urea nitrogen/creatinine mass mzzhc0248-57-83 15:36:00* Test Item Value Reference Range Interpretation Comments BUN/Creatinine Ratio (test code = 3097-3) 9 - [facility] CenterEstimated glomerular filtration rate (GFR) uurpccouyeetb8682-74-11 15:36:00* Test Item Value Reference Range Interpretation Comments Estimat Glomerular Filtration Rate (test code = 687432228) 52 >60 Ranges were taken from the National Kidney Disease Education Program and the [facility] Kidney Foundation literature.Reference ranges:60 or greater: Fiinih33-93 ( for 3 consecutive months): Chronic kidney disease 15 or less: Kidney failureCarl R. Darnall Army Medical CenterGlucose jugutgiscpm8627-81-79 15:36:00* Test Item Value Reference Range Interpretation Comments Glucose Level (test code = SCN8821) 120 74-118 [facility] Irvingerum or plasma calcium measurement (mass/volume)2020-05-20 15:36:00* Test Item Value Reference Range Interpretation Comments Calcium Level (test code = 90542-8) 9.6 8.4-10.2 [facility] Irvingerum or plasma magnesium measurement (mass/volume)2020-05-20 15:36:00* Test Item Value Reference Range Interpretation Comments Magnesium Level (test code = 29793-4) 1.5 1.3-2.1 [facility] Irvingerum or plasma total bilirubin measurement (mass/volume)2020-05-20 15:36:00* Test Item Value Reference Range Interpretation Comments Total Bilirubin (test code = 1975-2) 0.5 0.2-1.2 [facility] CenterFluoroscopic procedure less than one hour rmpuaonw4794-91-45 15:36:00* Test Item Value Reference Range Interpretation Comments Aspartate Amino Transf (AST/SGOT) (test code = Aspartate Amino Transf (AST/SGOT)) 15 5-34 [facility] Irvingerum or plasma alanine aminotransferase measurement (enzymatic activity/volume)2020-05-20 15:36:00* Test Item Value Reference Range Interpretation Comments Alanine Aminotransferase (ALT/SGPT) (test code = 1742-6) 10 0-55 [facility] Irvingerum or plasma protein measurement (mass/volume)2020-05-20 15:36:00* Test Item Value Reference Range Interpretation Comments Total Protein (test code = 2885-2) 7.6 6.5-8.1 [facility] Irvingerum or plasma albumin measurement (mass/volume)2020-05-20 15:36:00* Test Item Value Reference Range Interpretation Comments Albumin (test code = 1751-7) 4.0 3.5-5.0 [facility] CenterPlasma globulin measurement (mass/volume) 2020-05-20 15:36:00* Test Item Value Reference Range Interpretation Comments Globulin (test code = 99239-8) 3.6 2.3-3.5 [facility] Irvingerum or plasma albumin/globulin mass dlgcj1544-19-43 15:36:00* Test Item Value Reference Range Interpretation Comments Albumin/Globulin Ratio (test code = 1759-0) 1.1 0.8-2.0 [facility] Irvingerum or plasma alkaline phosphatase measurement (enzymatic activity/volume)2020-05-20 15:36:00* Test Item Value Reference Range Interpretation Comments Alkaline Phosphatase (test code = 6768-6) 54 40-150 [facility] Irvingerum or plasma magnesium measurement (mass/volume)2020-05-20 15:36:00* Test Item Value Reference Range Interpretation Comments Magnesium Level (test code = 41314-4) 1.5 1.3-2.1 [facility] Irvingerum or plasma magnesium measurement (mass/volume)2020-05-20 15:36:00* Test Item Value Reference Range Interpretation Comments Magnesium Level (test code = 61024-6) 1.5 1.3-2.1 [facility]PELVIS [id number] 19:36:00 [facility] [address] [address] Patient Name: NOEMY ARGUETA MR #: [id number] : 1935 Age/Sex: 84/M Req #: [id number] Adm Physician: Ordered by: NIECY ARZOLA MD Rep ort #: [id number] Location: CT Room/B ed: Procedure: [id number] CT/CT ABDOMEN/ PELVIS W Exam Date: 05/12/20 [...] limits set by the Radiation [employer] it[employer] ([facility]). Dose modulation, iterative reconstruction, and/or weight [...] TO: NIECY ARZOLA MD ABDOMEN-1VIEW (KUB)2020-05-11 18:06:00 [address] [address] Patient Name: NOEMY ARGUETA MR #: [id number] : 1935 Age/Sex: 84/M Req #: [id number] Adm Physician: Ordered by: KLAUDIA ARZOLA MD Report #: [id number] Location: [facility] Room/Bed: Procedure: [id number] DX/ABDOMEN-1VI EW (KUB) Exam Date: 05/11/20 Exam Time: 1721 REPORT STATUS: Signed EXAM: Abdomen Rad iograph [...] MD Fluoroscopic procedure less than one hour thgadxga9003-61-64 19:30:00* Test Item Value Reference Range Interpretation [...] under 564(g) of the ACT.Testing performed by [address] [id number] R. Darnall [facility] Medical CenterFluoroscopic procedure less than one hour [...] under 564(g) of the ACT.Testing performed by [address], [place] [address]QIIThe [facility] ([facility])2020-04-02 07:07:00 [facility] [address] [address] Patient Name: NOEMY ARGUETA MR #: [id number] : 1935 Age/Sex: 84/M Req #: [id number] Adm Physician: AG JACOBSEN MD Ordered by: ANITHA POLANCO MD, MD Report #: [id number] Location: [facility]/Bed: [address] [address] Procedure: [id number] DX/CHEST SI NGLE (PORTABLE) Exam Date: 04/02/20 [...] Kinase (test code = 2157-6) 127 30-200 [facility] Irvingerum or plasma creatine kinase MB measurement (mass/volume)2020-04-02 07:01:00* Test Item Value Reference Range Interpretation Comments Creatine Kinase MB (test code = 72671-4) 2.00 0-5.0 [facility] CenterTroponin I measurement by highly sensitive enzyme saqtudnzhtx2834-85-85 07:01:00* Test Item Value Reference Range Interpretation Comments Troponin I (test code = 45976-8) 0.003 0-0.300 [facility] Irvingerum or plasma creatine kinase measurement (enzymatic activity/volume)2020-04-02 07:01:00* Test Item Value Reference Range Interpretation Comments Creatine Kinase (test code = 2157-6) 127 30-200 [facility] [place] or plasma creatine kinase MB measurement (mass/volume)2020-04-02 07:01:00* Test Item Value Reference Range Interpretation Comments Creatine Kinase MB (test code = 69182-1) 2.00 0-5.0 [facility] CenterTroponin I measurement by highly sensitive enzyme obvwrfliqkk4938-78-00 07:01:00* Test Item Value Reference Range Interpretation Comments Troponin I (test code = 74505-7) 0.003 0-0.300 [facility] or plasma creatine kinase measurement (enzymatic activity/volume)2020-04-02 07:01:00* Test Item Value Reference Range Interpretation Comments Creatine Kinase (test code = 2157-6) 127 30-200 [facility] Irvingerum or plasma creatine kinase MB measurement (mass/volume)2020-04-02 07:01:00* Test Item Value Reference Range Interpretation Comments Creatine Kinase MB (test code = 22430-6) 2.00 0-5.0 [facility] CenterTroponin I measurement by highly sensitive enzyme xjdhiytayqx9397-89-46 07:01:00* Test Item Value Reference Range Interpretation Comments Troponin I (test code = 94038-4) 0.003 0-0.300 [facility] CenterCT BRAIN MO6106-52-82 11:20:00 [facility] [address] [address] Patient Name: NOEMY ARGUETA MR #: [id number] : 1935 Age/Sex: 84/M Req #: [id number] Adm Physician: Ordered by: COLLIN BRANNON, ANITHA BRANNON Report #: [id number] Location: [facility] /Bed: Procedure: [id number] CT/CT BRAIN WO Exam Date: 04/01/20 Exam [...] TO: ANITHA POLANCO CHEST SINGLE (PORTABLE)2020-04-01 11:17:00 [address] [address] Patient Name: NOEMY ARGUETA MR #: [id number] : 1935 Age/Sex: 84/M Req #: [id number] Adm Physician: Ordered by: ANITHA POLANCO MD, MD Report #: [id number] Location: ER Room/Bed: Procedure: [id number] DX/CHEST SI NGLE (PORTABLE) Exam Date: 04/01/20 Exam Time: 1025 REPORT STATUS: Signed EXAMINATIO N: CHEST SINGLE (PORTABLE) INDICATION: Y ERMD ORDER [id number] Y COMPARISON: 03/13/2020 FINDINGS: AP view TUBES [...] (PT) in platelet poor plasma by coagulation oajst7737-46-82 10:15:00* Test Item Value Reference Range Interpretation Comments Prothrombin Time (test code = 5902-2) 14.3 11.9-14.5 [facility] CenterINR in Platelet poor plasma by Coagulation xskrk6874-20-58 10:15:00* Test Item Value Reference Range Interpretation Comments Prothromb Time International Ratio (test code = 6301-6) 1.05 Oral Anticoagulant Therapy INR Values:1. Low Intensity Therapy 1.5 - 2.02 . Moderate Intensity Therapy 2.0 - 3.03. High Intensity Therapy(1) 2.5 - 3. 54. High Intensity Therapy(2) 3.0 - 4.05. Panic Value INR > 5.0 [facility] CenterActivated partial thromboplastin time (aPTT) in platelet poor plasma by coagulation dhgna3160-91-31 10:15:00* Test Item Value Reference Range Interpretation Comments Activated Partial Thromboplast Time (test code = 09109-2) 30.2 23.8-35.5 [facility] CenterFluoroscopic procedure less than one hour qfvormeh5692-25-27 10:15:00* Test Item Value Reference Range Interpretation Comments Lactic Acid Level (test code = Lactic Acid Level) 1.5 0.5- 2.0 [facility] CenterBNP Jyt-uUoo8904-99-03 10:15:00* Test Item Value Reference Range Interpretation Comments B-Type Natriuretic Peptide (test code = 43546-4) 32.1 0-100 [facility] Irvingerum or plasma thyrotropin measurement by detection limit <= 0.005 miu/l (units/volume)2020-04-01 10:15:00* Test Item Value Reference Range Interpretation Comments Thyroid Stimulating Hormone (TSH) (test code = 80859-6) 1.327 0.350-4.940 [facility] CenterBlood krtewym4081-57-06 10:15:00* Test Item Value Reference Range Interpretation Comments Blood Culture (test code = 89374638) NO GROWTH AFTER 5 DAYS, FINAL REPORT [facility] CenterProthrombin time (PT) in platelet poor plasma by coagulation extfw4925-49-43 10:15:00* Test Item Value Reference Range Interpretation Comments Prothrombin Time (test code = 5902-2) 14.3 11.9-14.5 [facility] CenterINR in Platelet poor plasma by Coagulation knjon9940-49-28 10:15:00* Test Item Value Reference Range Interpretation Comments Prothromb Time International Ratio (test code = 6301-6) 1.05 Oral Anticoagulant Therapy INR Values:1. Low Intensity Therapy 1.5 - 2.02 . Moderate Intensity Therapy 2.0 - 3.03. High Intensity Therapy(1) 2.5 - 3. 54. High Intensity Therapy(2) 3.0 - 4.05. Panic Value INR > 5.0 [facility] CenterActivated partial thromboplastin time (aPTT) in platelet poor plasma by coagulation jbdrc3558-46-55 10:15:00* Test Item Value Reference Range Interpretation Comments Activated Partial Thromboplast Time (test code = 86659-9) 30.2 23.8-35.5 [facility] CenterFluoroscopic procedure less than one hour xpdyohyz0222-79-33 10:15:00* Test Item Value Reference Range Interpretation Comments Lactic Acid Level (test code = Lactic Acid Level) 1.5 0.5- 2.0 [facility] CenterBNP Wfq-bHgn7087-73-03 10:15:00* Test Item Value Reference Range Interpretation Comments B-Type Natriuretic Peptide (test code = 03920-4) 32.1 0-100 [facility] Irvingerum or plasma thyrotropin measurement by detection limit <= 0.005 miu/l (units/volume)2020-04-01 10:15:00* Test Item Value Reference Range Interpretation Comments Thyroid Stimulating Hormone (TSH) (test code = 13854-3) 1.327 0.350-4.940 [facility] degauyy6982-88-78 10:15:00* Test Item Value Reference Range Interpretation Comments Blood Culture (test code = 59506726) NO GROWTH AFTER 5 DAYS, FINAL REPORT [facility] CenterProthrombin time (PT) in platelet poor plasma by coagulation umnti7671-25-08 10:15:00* Test Item Value Reference Range Interpretation Comments Prothrombin Time (test code = 5902-2) 14.3 11.9-14.5 [facility] CenterINR in Platelet poor plasma by Coagulation vppmc1644-55-97 10:15:00* Test Item Value Reference Range Interpretation Comments Prothromb Time International Ratio (test code = 6301-6) 1.05 Oral Anticoagulant Therapy INR Values:1. Low Intensity Therapy 1.5 - 2.02 . Moderate Intensity Therapy 2.0 - 3.03. High Intensity Therapy(1) 2.5 - 3. 54. High Intensity Therapy(2) 3.0 - 4.05. Panic Value INR > 5.0 [facility] CenterActivated partial thromboplastin time (aPTT) in platelet poor plasma by coagulation addii9218-08-69 10:15:00* Test Item Value Reference Range Interpretation Comments Activated Partial Thromboplast Time (test code = 38693-2) 30.2 23.8-35.5 [facility] CenterFluoroscopic procedure less than one hour zvoldleq7817-53-50 10:15:00* Test Item Value Reference Range Interpretation Comments Lactic Acid Level (test code = Lactic Acid Level) 1.5 0.5- 2.0 [facility] CenterBNP Keg-nCiv7890-21-03 10:15:00* Test Item Value Reference Range Interpretation Comments B-Type Natriuretic Peptide (test code = 67719-1) 32.1 0-100 [facility] yphrptj3725-64-92 10:15:00* Test Item Value Reference Range Interpretation Comments Blood Culture (test code = 27482747) NO GROWTH AFTER 5 DAYS, FINAL REPORT [facility] CenterCHEST SINGLE (PORTABLE)2020-03-13 18:24:00 [facility] [address] [address] Patient Name: NOEMY ARGUETA MR #: [id number] : 1935 Age/Sex: 84/M Req #: [id number] Adm Physician: Ordered by: PER AU MD Report #: [id number] Location: ER Room/Bed: Procedure: [id number] DX/CHEST SINGLE (PORTABLE) Exam Date: 03/13/20 Exam [...] Interpretation Comments Bedside Glucose (test code = 87130-3) 123 70-120 H Meter ID: [id number]. David's Georgetown HospitalClumped Platelets 2019-05-15 08:26:00* Test Item Value Reference Range Interpretation Comments Clumped Platelets (test code = 7796-6) NONE NONE [facility] – Irvingodium Htiao0200-44-21 05:59:00* Test Item Value Reference Range Interpretation Comments Sodium Level (test code = 2951-2) 141 136-145 [facility] CenterPotassium Yyecj2649-31-38 05:59:00* Test Item Value Reference Range Interpretation Comments Potassium Level (test code = 2823-3) 3.4 3.5-5.1 L [facility] CenterChloride Jvbrl1491-82-76 05:59:00* Test Item Value Reference Range Interpretation Comments Chloride Level (test code = 2075-0) 110 98-107 H [facility] CenterCarbon Dioxide Bmxsh4518-13-91 05:59:00* Test Item Value Reference Range Interpretation Comments Carbon Dioxide Level (test code = 2028-9) 23 22-29 [facility] CenterAnion Eag7622-29-81 05:59:00* Test Item Value Reference Range Interpretation Comments Anion Gap (test code = 71446-4) 11.4 8-16 [facility] CenterBlood Urea Xlrzhees9646-83-11 05:59:00* Test Item Value Reference Range Interpretation Comments Blood Urea Nitrogen (test code = 3094-0) 15 7-26 [facility] CenterCreatinine2019-08-16 05:59:00* Test Item Value Reference Range Interpretation Comments Creatinine (test code = 2160-0) 0.96 0.72-1.25 [facility] CenterBUN/Creatinine Sphiy5326-64-96 05:59:00* Test Item Value Reference Range Interpretation Comments BUN/Creatinine Ratio (test code = 3097-3) 16 6-25 [facility] CenterEstimat Glomerular Filtration Rate 2019-05-15 05:59:00* Test Item Value Reference Range Interpretation Comments Estimat Glomerular Filtration Rate (test code = 783214606) > 60 >60 Ranges were taken from the National Kidney Disease Education Program and the [facility] Hospitalal Kidney Foundation literature.Reference ranges:60 or greater: Dyydah72-62 ( for 3 consecutive months): Chronic kidney disease 15 or less: Kidney failureCarl R. Darnall Army Medical CenterGlucose Ktaui9076-87-05 05:59:00* Test Item Value Reference Range Interpretation Comments Glucose Level (test code = ZTK8198) 122 74-118 H [facility] CenterCalcium Hopau2707-21-78 05:59:00* Test Item Value Reference Range Interpretation Comments Calcium Level (test code = 48685-9) 7.6 8.4-10.2 L [facility] CenterTotal Sghjntxjk7061-17-80 05:59:00* Test Item Value Reference Range Interpretation Comments Total Bilirubin (test code = 1975-2) 0.3 0.2-1.2 [facility] CenterAspartate Amino Transf (AST/SGOT) 2019-05-15 05:59:00* Test Item Value Reference Range Interpretation Comments Aspartate Amino Transf (AST/SGOT) (test code = Aspartate Amino Transf (AST/SGOT)) 15 5-34 [facility] CenterAlanine Aminotransferase (ALT/SGPT) 2019-05-15 05:59:00* Test Item Value Reference Range Interpretation Comments Alanine Aminotransferase (ALT/SGPT) (test code = 1742-6) 6 0-55 [facility] CenterTotal Agmhfqe1920-20-48 05:59:00* Test Item Value Reference Range Interpretation Comments Total Protein (test code = 2885-2) 4.8 6.5-8.1 L [facility] CenterAlbumin2019-08-16 05:59:00* Test Item Value Reference Range Interpretation Comments Albumin (test code = 1751-7) 2.1 3.5-5.0 L [facility] CenterGlobulin2019-08-16 05:59:00* Test Item Value Reference Range Interpretation Comments Globulin (test code = 82036-5) 2.7 2.3-3.5 [facility] CenterAlbumin/Globulin Rovgj2007-47-65 05:59:00 * Test Item Value Reference Range Interpretation Comments Albumin/Globulin Ratio (test code = 1759-0) 0.8 0.8-2.0 [facility] CenterAlkaline Zhwwijvjttk8432-00-06 05:59:00* Test Item Value Reference Range Interpretation Comments Alkaline Phosphatase (test code = 6768-6) 56 40-150 [facility] CenterWhite Blood Fnmna1619-76-45 05:58:00* Test Item Value Reference Range Interpretation Comments White Blood Count (test code = 6690-2) 7.18 4.8-10.8 [facility] CenterRed Blood Kfnya9948-23-10 05:58:00* Test Item Value Reference Range Interpretation Comments Red Blood Count (test code = 789-8) 3.55 4.3-5.7 L [facility] CenterHemoglobin2019-08-16 05:58:00* Test Item Value Reference Range Interpretation Comments Hemoglobin (test code = 49024-3) 10.7 14.0-18.0 L [facility] CenterHematocrit2019-08-16 05:58:00* Test Item Value Reference Range Interpretation Comments Hematocrit (test code = 4544-3) 32.4 38.2-49.6 L [facility] CenterMean Corpuscular Iflonv9900-23-85 05:58:00* Test Item Value Reference Range Interpretation Comments Mean Corpuscular Volume (test code = 787-2) 91.3 81-99 [facility] CenterMean Corpuscular Utledsijll6951-82-20 05:58:00* Test Item Value Reference Range Interpretation Comments Mean Corpuscular Hemoglobin (test code = 785-6) 30.1 28-32 [facility] Brenhaman Corpuscular Hemoglobin Concent 2019-05-15 05:58:00* Test Item Value Reference Range Interpretation Comments Mean Corpuscular Hemoglobin Concent (test code = 786-4) 33.0 31-35 [facility] CenterRed Cell Distribution Dddet2242-23-64 05:58:00* Test Item Value Reference Range Interpretation Comments Red Cell Distribution Width (test code = 39179-0) 13.7 11.7 -14.4 [facility] CenterPlatelet Uuijk4788-23-01 05:58:00* Test Item Value Reference Range Interpretation Comments Platelet Count (test code = 777-3) 134 140-360 L [facility] CenterNeutrophils (%) (Auto)2019-05-15 05:58:00 * Test Item Value Reference Range Interpretation Comments Neutrophils (%) (Auto) (test code = 75170-4) 68.2 38.7-80.0 [facility] CenterLymphocytes (%) (Auto)2019-05-15 05:58:00 * Test Item Value Reference Range Interpretation Comments Lymphocytes (%) (Auto) (test code = 736-9) 19.8 18.0-39.1 [facility] CenterMonocytes (%) (Auto)2019-05-15 05:58:00* Test Item Value Reference Range Interpretation Comments Monocytes (%) (Auto) (test code = 5905-5) 9.9 4.4-11.3 [facility] CenterEosinophils (%) (Auto)2019-05-15 05:58:00 * Test Item Value Reference Range Interpretation Comments Eosinophils (%) (Auto) (test code = 713-8) 1.3 0.0-6.0 [facility] CenterBasophils (%) (Auto)2019-05-15 05:58:00* Test Item Value Reference Range Interpretation Comments Basophils (%) (Auto) (test code = 706-2) 0.4 0.0-1.0 [facility] CenterIM GRANULOCYTES %2019-05-15 05:58:00* Test Item Value Reference Range Interpretation Comments IM GRANULOCYTES % (test code = IM GRANULOCYTES %) 0.4 0.0- 1.0 [facility] CenterNeutrophils # (Auto)2019-05-15 05:58:00* Test Item Value Reference Range Interpretation Comments Neutrophils # (Auto) (test code = 751-8) 4.9 2.1-6.9 [facility] CenterLymphocytes # (Auto)2019-05-15 05:58:00* Test Item Value Reference Range Interpretation Comments Lymphocytes # (Auto) (test code = 58213-9) 1.4 1.0-3.2 [facility] CenterMonocytes # (Auto)2019-05-15 05:58:00* Test Item Value Reference Range Interpretation Comments Monocytes # (Auto) (test code = 742-7) 0.7 0.2-0.8 [facility] CenterEosinophils # (Auto)2019-05-15 05:58:00* Test Item Value Reference Range Interpretation Comments Eosinophils # (Auto) (test code = 711-2) 0.1 0.0-0.4 [facility] CenterBasophils # (Auto)2019-05-15 05:58:00* Test Item Value Reference Range Interpretation Comments Basophils # (Auto) (test code = 704-7) 0.0 0.0-0.1 [facility] CenterAbsolute Immature Granulocyte (auto 2019-05-15 05:58:00* Test Item Value Reference Range Interpretation Comments Absolute Immature Granulocyte (auto (faye t code = Absolute Immature Granulocyte (auto) 0.03 0-0.1 [facility] CenterBlood Dvtzmla4344-95-59 23:56:00* Test Item Value Reference Range Interpretation Comments Blood Culture (test code = 67903736) NO GROWTH AFTER 24 HOURS [facility] CenterHIPS BILAT TWO VWS(+/- PELVIS)2019-05-14 17:32:00 [facility] [address] [place] [address] Patient Name: NOEMY ARGUETA MR #: [id number] : 1935 Age/Sex: 83/M Req #: [id number] Adm Physician: HAZEL SHAW MD Ordered by: HAZEL SHAW MD Report #: [id number] Location: MED/SURG2 Room/Bed: [facility] Procedure: [id number] D X/HIPS BILAT TWO VWS(+/- PELVIS) Exam [...] COPY TO: HAZEL SHAW MD Creatine Kinase GG3070-50-03 09:00:00* Test Item Value Reference Range Interpretation Comments Creatine Kinase MB (test code = 20250-6) 5.60 0-5.0 H [facility] CenterTroponin Q3020-56-13 09:00:00* Test Item Value Reference Range Interpretation Comments Troponin I (test code = DML9737) 0.015 0-0.300 [facility] CenterCreatine Fwajma2618-25-07 08:35:00* Test Item Value Reference Range Interpretation Comments Creatine Kinase (test code = 2157-6) 257 30-200 H [facility] CenterUrine CCE9979-96-64 03:56:00* Test Item Value Reference Range Interpretation Comments Urine WBC (test code = 5821-4) 0-5 0-5 [facility] CenterUrine OQM2981-48-58 03:56:00* Test Item Value Reference Range Interpretation Comments Urine RBC (test code = 80229-8) 0-5 0-5 [facility] CenterUrine Osbhpntq2164-73-41 03:56:00* Test Item Value Reference Range Interpretation Comments Urine Bacteria (test code = 18175-2) RARE NONE [facility] Epithelial Kscdw3214-92-86 03:56:00 * Test Item Value Reference Range Interpretation Comments Urine Epithelial Cells (test code = 93842-7) FEW NONE [facility] CenterUrine Bmwot5863-86-43 03:50:00* Test Item Value Reference Range Interpretation Comments Urine Color (test code = 5778-6) YELLOW YELLOW [facility] CenterUrine Vawnqhs1125-77-35 03:50:00* Test Item Value Reference Range Interpretation Comments Urine Clarity (test code = 72106-6) CLEAR CLEAR [facility] Specific Wjsihtm5543-34-72 03:50:00 * Test Item Value Reference Range Interpretation Comments Urine Specific Mcgrath (test code = 5811-5) <=1.005 1.010-1.02 5 [facility] CenterUrine nF2531-83-04 03:50:00* Test Item Value Reference Range Interpretation Comments Urine pH (test code = 90569-4) 6 5-7 [facility] Leukocyte Qblugtza9072-99-08 03:50:00* Test Item Value Reference Range Interpretation Comments Urine Leukocyte Esterase (test code = 49194-2) NEGATIVE NEGATIV E [facility] Lpfjbkr5222-33-79 03:50:00* Test Item Value Reference Range Interpretation Comments Urine Nitrite (test code = 95003-4) NEGATIVE NEGATIVE [facility] Wkplyba9702-65-88 03:50:00* Test Item Value Reference Range Interpretation Comments Urine Protein (test code = 23040-9) NEGATIVE NEGATIVE [facility] Glucose (UA)2019-05-14 03:50:00* Test Item Value Reference Range Interpretation Comments Urine Glucose (UA) (test code = 49563-3) NEGATIVE NEGATIVE [facility] Ltzgwks7445-69-30 03:50:00* Test Item Value Reference Range Interpretation Comments Urine Ketones (test code = 78895-3) NEGATIVE NEGATIVE [facility] CenterUrine Phsriatwgdow8690-44-19 03:50:00* Test Item Value Reference Range Interpretation Comments Urine Urobilinogen (test code = 66356-6) 0.2 0.2-1 [facility] CenterUrine Gnsjntfyx3589-48-49 03:50:00* Test Item Value Reference Range Interpretation Comments Urine Bilirubin (test code = 1977-8) NEGATIVE NEGATIVE [facility] CenterUrine Gjpdr4207-87-60 03:50:00* Test Item Value Reference Range Interpretation Comments Urine Blood (test code = 56832-0) NEGATIVE NEGATIVE [facility] CenterUrine Opiates Zdivtv5326-26-46 03:49:00* Test Item Value Reference Range Interpretation Comments Urine Opiates Screen (test code = 31433-5) POSITIVE NEGATIVE H ALL TESTS PERFORMED MANUALLY ON Synth[employer] TOX/SEE TEST This test provides only a sc reen. Positive results should be repeated by a confirmatory test.[facility] CenterUrine Barbiturates Waarkq6740-67-65 03:49:00* Test Item Value Reference Range Interpretation Comments Urine Barbiturates Screen (test code = 891673364) NEGATIVE NEGA TIVE [facility] CenterUrine Phencyclidine Oxwnto7950-71-66 03:49:00* Test Item Value Reference Range Interpretation Comments Urine Phencyclidine Screen (test code = 77402-7) NEGATIVE NEGAT VALENTINE [facility] CenterUrine Amphetamines Wbacne7681-51-29 03:49:00* Test Item Value Reference Range Interpretation Comments Urine Amphetamines Screen (test code = 02578-9) NEGATIVE NEGATI VE [facility] CenterUrine Methamphetamines Qafqmv7104-11-48 03:49:00* Test Item Value Reference Range Interpretation Comments Urine Methamphetamines Screen (test code = Urine Metha mphetamines Screen) NEGATIVE NEGATIVE [facility] CenterUrine Benzodiazepines Vbqswz7723-72-68 03:49:00* Test Item Value Reference Range Interpretation Comments Urine Benzodiazepines Screen (test code = 23801-3) POSITIVE NEG ATIVE H This test provides only a screen. Positive results should be repeated by a confi rmatory test.[facility] CenterUrine Cocaine Screen 2019-05-14 03:49:00* Test Item Value Reference Range Interpretation Comments Urine Cocaine Screen (test code = 3398-5) NEGATIVE NEGATIVE [facility]vineUrine Cannabinoids Ajfilb6012-55-79 03:49:00* Test Item Value Reference Range Interpretation Comments Urine Cannabinoids Screen (test code = 19181-8) NEGATIVE NEGATI VE THESE RESULTS ARE FOR MEDICAL TREATMENT ONLYTHIS REPORT CONTAINS UNCONFIR MED SCREENING RESULTS*POSITIVE RESULTS WILL BE CONFIRMED BY REFERENCE LAB UPON R EQUEST CUT-OFFDRUG CLASS CONCENTRATION ng/mLAmphetamines 1000Methamphetamines 1000Cocaine 300Opiate 300Phencyc lidine 25Cannabinoid 50Barbiturates 300Benzodiazepine 300Methadone 300[facility] GrapevineUrine Methadone Dwnzal6798-81-56 03:49:00* Test Item Value Reference Range Interpretation Comments Urine Methadone Screen (test code = 90239-7) NEGATIVE NEGATIVE THESE RESULTS ARE FOR MEDICAL TREATMENT ONLYTHIS REPORT CONTAINS UNCONFIR MED SCREENING RESULTS*POSITIVE RESULTS WILL BE CONFIRMED BY REFERENCE LAB UPON R EQUEST CUT-OFFDRUG CLASS CONCENTRATION ng/mLAmphetamines 1000Methamphetamines 1000Cocaine Metabolite 300Opiate 300Phencyc lidine 25Cannabinoid 50Barbiturates 300Benzodiazepine 300Methadone 300[facility] GrapevineCT CERVICAL SPINE LW7463-41-90 00:55:[address] [address] Patient Name: NOEMY ARGUETA MR #: [id number] : 1935 Age/Sex: 83/M Req #: [id number] [facility] Physician: Ordered by: CINDY BURROWS MD Report #: [id number] Location: Room/Bed: Procedure: 43 CT/CT CERVICAL SPINE WO [...] foraminal stenosis. . IMPRESSION: 1. No ac gulk[place] cervical spine fracture or dislocation. Reversal of [...] By: APOORVA on 05/14/1999 COPY TO: CINDY BRUROWS MD CHEST SINGLE (PORTABLE) 2019-05-14 00:53:00 [facility] [address] [address] Patient Name: NOEMY ARGUETA MR #: [id number] : 1935 Age/Sex: 83/M Req #: [id number] [facility] Physician: Ordered by: CINDY BURROWS MD Report #: [id number] Location: ER Room/Bed: Procedure: 60 DX/CHEST SINGLE [...] COPY TO: CINDY BURROWS MD CT BRAIN AQ3598-57-44 00:47:00 [facility] [address] [address] Patient Name: NOEMY ARGUETA MR #: [id number] : 1935 Age/Sex: 83/M Req #: [id number] Adm Physician: Ordered by: CINDY BURROWS MD Report #: [id number] Location: ER Room/Bed: Procedure: CT/CT BRAIN WO [...] COPY TO: CINDY BURROWS MD Lactic Acid Uldfc5282-66-11 00:36:00* Test Item Value Reference Range Interpretation Comments Lactic Acid Level (test code = Lactic Acid Level) 18.7 4.5- 19.8 [facility] CenterCHES 2 TZKBF6250-97-71 17:12:00 [address] [address] Patient Name: NOEMY ARGUETA MR #: [id number] : 1935 Age/Sex: 83/M Req #: [id number] Adm Physician: Ordered by: ELMIRA HUGHES MD Report #: [id number] Location: OR Room/Bed: Procedure: DX/CH EST 2 [...] foc al acute point tenderness. Signed by: Shyam Monk.O., M.M.M. on 03/11/2019 5:19 PM Dictated By: SHYAM RODRÍGUEZ DO 18 Transcribed By: APOORVA on 03/11/191718 COPY TO: ELMIRA HUGHES MD [id number] 17:11:00* Test Item Value Reference Range Interpretation Comments GLUBED (test code = GLUBED) 98 mg/dL 74-106 N [facility] [id number] 12:12:00* Test Item Value Reference Range Interpretation Comments GLUBED (test code = GLUBED) 163 mg/dL 74-106 H Performed by certified linting machine [facility] [id number] 08:00:00* Test Item Value Reference Range Interpretation Comments GLUBED (test code = GLUBED) 90 mg/dL 74-106 N Per[facility] by certified linting machine [facility] BASIC METABOLIC [id number] 05:35:00* Test Item Value Reference Range Interpretation [...] CK) 2348 IUnit/L 26-208 H BASIC METABOLIC [id number] 05:16:00* Test Item Value Reference Range Interpretation [...] (CK) (test code = CK) IUnit/L 26-208 [id number] 20:59:00* Test Item Value Reference Range Interpretation Comments GLUBED (test code = GLUBED) 125 mg/dL 74-106 H Per[facility] certified linting machine [facility] [id number] 16:45:00* Test Item Value Reference Range Interpretation Comments GLUBED (test code = GLUBED) 107 mg/dL 74-106 H Per[facility] by certified linting machine [facility] URINALYSIS [id number] 13:53:00* Test Item Value Reference Range Interpretation [...] FEW #/HPF NONE Urine Source? Clean CatchURINALYSIS [id number] 13:49:00* Test Item Value Reference Range Interpretation [...] A UA PH DIPSTICK (test code = SAARVANAN) 6.0 5.0-8.0 UA PROTEIN DIPSTICK (test code [...] BACU) per HPF NONE Urine Source? Clean [id number] 12:47:00* Test Item Value Reference Range Interpretation Comments GLUBED (test code = GLUBED) 114 mg/dL 74-106 H [facility] linting machine [facility] [id number] 08:17:00* Test Item Value Reference Range Interpretation Comments GLUBED (test code = GLUBED) 96 mg/dL 74-106 N Per[facility] by certified linting machine [facility] BASIC METABOLIC [id number] 08:12:00* Test Item Value Reference Range Interpretation [...] CK) 5208 IUnit/L 26-208 H BASIC METABOLIC [id number] 07:39:00* Test Item Value Reference Range Interpretation [...] (CK) (test code = CK) IUnit/L 26-208 [id number] 21:50:00* Test Item Value Reference Range Interpretation Comments GLUBED (test code = GLUBED) 117 mg/dL 74-106 H Performed by certified linting machine operator at [facility] - CT L-SPINE W/O [id number] 19:37:00 Name: NOEMY ARGUETA [facility] : 1935 Age/S: 83 / M [address] [facility] Unit #: [id number] Loc: [place] [address] Phys: Shannon Corey MD Acct: [id number] Dis Date: Status: ADM IN PHONE #: [phone] Exam Date: 01/21/2019 191 FAX #: [phone] Reason: H/o fall EXAMS: CPT CODE: [id number] CT L-SPINE W/O CONTRAST 40229 REASON FOR EXAM: H/o fall EXAM ORDER [...] W/O CONTRAST 2019-01-21 19:35:00 Name: NOEMY ARGUETA [facility] : 1935 Age/S: 83 / M [address] [facility] Unit #: [id number] Loc: [place] [address] Phys: Shannon Corey MD Acct: [id number] Dis Date: Status: ADM IN PHONE #: [phone] Exam Date: 01/21/2019 191 FAX #: [phone] Reason: H/o fall EXAMS: CPT CODE: [id number] CT T-SPINE W/O CONTRAST 52234 REASON FOR EXAM: H/o fall EXAM ORDER [...] W/O CONTRAST 2019-01-21 19:34:00 Name: NOEMY ARGUETA [facility] : 1935 Age/S: 83 / M [address] [facility] Unit #: [id number] Loc: [facility] [place] [address] Phys: Shannon Corey MD Acct: [id number] Dis Date: Status: ADM IN PHONE #: [phone] Exam Date: 01/21/20191918 FAX #: [phone] Reason: H/o fall EXAMS: CPT CODE: [id number] CT C-SPINE W/O CONTRAST 98482 REASON FOR EXAM: H/o fall EXAM ORDER DATE: 01/21/2019 1:48 PM Ordering MBrisa: Shannon Corey MD PROCEDURE: - CT C-SPINE [...] (1936) CTDI: DLP: PAGE 1 Signed Report [id number] 15:53:00* Test Item Value Reference Range Interpretation Comments GLUBED (test code = GLUBED) 120 mg/dL 74-106 H Performed by certified linting machine operator at [facility] - XR RIBS UNI W/CXR 3+V [id number] 12:17:00 FAX: Obey De Souza MD [phone] [place]: St: ADM FAX: Y David Edwards MD [phone] Name: NOEMY ARGUETA [facility] : 1935 Age/S: 83/M [address] [facility] Unit #: [id number] Loc: [address] [address] Phys: Obey De Souza MD Acct: [id number] Dis Date: Status: ADM IN PHONE #: [phone] Exam Date: 01/20/2019 2255 FAX #: [phone] Reason: rib pain, fall EXAMS: CPT CODE: [id number] XR RIBS UNI W/CXR 3+[place] [address] HISTORY: Pain after fall. COMPARISON: Chest x-ray [...] Obey Licona MD; David Edwards MD Technologist: RT OLIVIER Trnscrd Date/Time/By: 01/21/2019 (12 17) : By: [email or web address] Orig Print D/T: S: 01/22/2019 (1147) PAGE 1 Signed Report [id number] 12:13:00* Test Item Value Reference Range Interpretation Comments GLUBED (test code = GLUBED) 114 mg/dL 74-106 H Performed by certified linting machine operator at [facility] - CT HEAD/BRAIN W/O [id number] 12:02:00 Name: NOEMY ARGUETA [facility] : 1935 Age/S: 83 / M [address] [facility] Unit #: [id number] Loc: [place] [address] Phys: Obey De Souza MD Acct: [id number] Dis Date: Status: ADM IN PHONE #: [phone] Exam Date: 01/20/2019 2300 FAX #: [phone] Reason: fall/AMS EXAMS: CPT CODE: [id number] CT HEAD/BRAIN W/O CONT 04840 HISTORY: Confusion. COMPARISON: None available. CT brain [...] (1202) [email or web address] Orig Print D/T: S: 01/21/2019 (7513) CTDI: DLP: PAGE 1 Signed Report [id number] 07:52:00* Test Item Value Reference Range Interpretation Comments GLUBED (test code = GLUBED) 100 mg/dL 74-106 N Performed by certified linting machine operator at [facility] BASIC METABOLIC [id number] 23:39:00* Test Item Value Reference Range Interpretation [...] CK) 7841 IUnit/L 26-208 H BASIC METABOLIC [id number] 23:09:00* Test Item Value Reference Range Interpretation [...] code = CK) IUnit/L 26-208 BASIC METABOLIC [id number] 23:02:00* Test Item Value Reference Range Interpretation [...] code = CK) IUnit/L 26-208 CBC W/AUTO [id number] 22:47:00* Test Item Value Reference Range Interpretation [...] (test code = MDIFF) NO CBC W/AUTO [id number] 22:39:00* Test Item Value Reference Range Interpretation [...] BA#) K/mm3 0.0-0.2 XR RIBS UNILATERAL/ PA [id number] 14:04:37Procedures: XR RIBS UNILATERAL/ PA CHESTExam Date: [...] By: AG WATSONDate: 02/23/2018 14:04MRI BRAIN WO [place] [address] Patient Name: NOEMY ARGUETA MR #: [id number] : 1935 Age/Sex: 82/M Req #: [id number] Adm Physician: KLAUDIA ARZOLA MD Ordered by: CARISSA ROSAS MD Report #: [id number] Location: [facility] Room/Bed: [place] [address] Procedure: [id number] MRI /MRI BRAIN WO Exam Date: 06/28/17 [...] on 06/28/172230 COPY TO: CARISSA ROSAS MD [facility] (PORTABLE) [place] [address] Patient Name: NOEMY ARGUETA MR #: [id number] : 1935 Age/Sex: 82/M Req #: [id number] Adm Physician: Ordered by: ABEL DE LEÓN Report #: [id number] Location: Room/Bed: Procedure: [id number] DX/CHEST SINGLE (PORTABLE) Ex am Date: 06/28/17 [...] TO: ABEL DE LEÓN CT BRAIN WO [place] [address] Patient Name: NOEMY ARGUETA MR #: [id number] : 1935 Age/Sex: 82/M Req #: [id number] Adm Physician: Ordered by: ABEL DE LEÓN Report #: [id number] Location: ER Room/Bed: Procedure: [id number] CT/CT BRAIN WO Exam Date: Exam Time: [...] TO: SALTY DE LEÓN CT BRAIN WO [place] [address] Patient Name: NOEMY ARGUETA MR #: [id number] : 1935 Age/Sex: 82/M Req #: [id number] Adm Physician: Ordered by: MELANIE PRAKASH MD Report #: [id number] Location: ER Room/Bed: Procedure: [id number] CT/CT BRAIN WO Exam Date: Exam Time: [...]
--- OUTSIDE RECORDS SUMMARY | 2020-06-26 15:45 | XMS REPORT | Continuity of Care Document ---
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 Role Phone CD Diagnostics Information [employer] Unavailable Un available Problems Problem Status Onset [...] viral diseases Active Diagnosis 09/02/2019 Keegan Ingram [facility] (current) use of opiate analgesic Active Diagnosis [...] Orally Active 4mg Orally once a day [place] 04/22/2020 Keegan Ingram Tylenol/Codeine #3 1 tablet as needed Orally Active 300-30 MG Orally every 6 hrs [facility] 04/14/2020 Keegan Ingram Chlordiazepoxide HCl 1 capsule Orally Active 10 MG Orally Twice a day [facility] 04/14/2020 Keegan Ingram Tramadol HCl 1 tablet as needed Orally Active 50 mg Orally twice a day (bid) [place] 08/20/2019 Keegan Ingram Medrol Dose [place] as directed Orally Active 4mg Orally once a day [facility] 12/01/2018 Keegan Ingram Chlordiazepoxide HCl 1 capsule Orally Active 10 MG Orally Twice a day [place] 09/09/2018 Keegan Ingram Chlordiazepoxide HCl 1 capsule Orally Active 25 MG Orally tid for nausea [facility] 08/12/2018 Keegan Ingram PredniSONE 1-2 tabs prn for ar thritis flare up Orally Active 5 MG Orally Once a day [facility] 08/05/2018 Keegan Ingram Zofran 1 tablet Orally Active 8 MG Orally Twice a day [facility] 08/05/2018 Keegan Ingram Tylenol/Codeine #3 1 tablet as needed Orally Active 300-30 MG Orally qid [place] 06/10/2018 Keegan Ingram Meclizine HCl 1 tablet as need ed Orally Active 25 MG Orally Once a day [place] 06/10/2018 Keegan Ingram Vitamin D (Ergocalciferol) 1 c apsule Orally Active 60677 UNIT Orally once a week [place] 12/17/2017 Keegan Ingram Simponi Aria as directed Intravenous Active 50 MG/4ML Intravenous [place] 09/02/2017 Keegan Ingram PredniSONE 1-2 tabs PRN Orally Active 5 MG Orally Once a day [place] 08/20/2017 Keegan Ingram PredniSONE 1-2 tabs PRN [...] Orally Three antolin es a day Paige iGbson Pramipexole Dihydrochloride 1 tablet before bedtime Orally [...] Ingram Diastolic (mm Hg) 72 11/07/2018 Keegan Inrgam Systolic (mm Hg) 148 11/07/2018 Keegan Ingram [...]
--- OUTSIDE RECORDS SUMMARY | 2020-06-26 15:46 | XMS REPORT | Continuity of Care Document ---
Author Author [facility] t Organization [facility] Address 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 Problems Condition Name Condition Details Condition Category Status Onset Date Resolution Date Last Treatment Date Treating Clinician Comments Source Closed fracture of one rib Closed fracture of one rib Problem Active 2018-02-22 00:00:00 [facility] (LUF/IZAIAH/SA) Arthralgia of bilateral temporomandibular joint Arthra [...] [facility] Dizziness Dizziness Problem Active [facility] Foreign body in esophagus Esophageal foreign body Problem Active [facility] Fever Fever Problem Active [facility] Weakness Generalized weakness Problem Active [facility] Pill esophagitis Pill esophagitis Problem Active [facility] Pneumonia Pneumonia Problem Active [facility] Nausea Problem Active [facility] Pre-syncope Problem Active [facility] Constipation Problem Active [facility] Mass of right kidney Problem Active [facility] Weight loss Problem Active [facility] Knee pain, right Knee pain, [...] 01/25/2018 Philippe Gibson Problem Active 16-01-28 02:45:48 [facility] Osteoarthritis, unspecified osteoarthritis type, unspe cified site Osteoarthritis, unspecified osteoarthritis type, unspecified site Active Problem 01/25/2018 Philippe Gibson Problem Active 16-01-28 02:45:48 [facility] Family history of abdominal aortic aneurysm (AAA) Family history of abdominal aortic aneurysm (AAA) Active Problem 01/25/2018 Philippe Gibson Problem Active 2018-01-25 02:45:48 Armando Cárdenas Former smoker Form er smoker Active Problem 01/25/2018 Philippe Gibson Problem Active 2018-01-25 02:45:48 [facility] Dyspnea, unspecified type Dysp kobi, unspecified type Active Problem 01/25/2018 Philippe Gibson Problem Active 16-01-28 02:45:48 [facility] Preoperative cardiovascular examination Preoperative cardiovascular examination Active Problem 01/25/2018 Philippe Gibson Problem Active 2018-01-25 02:45:48 Daniel Cárdenas 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 Active Problem 01/25/2018 Philippe Gibson Problem Active 2018-01-25 02:45:48 [facility] Fatigue Fati shane Active Diagnosis 12/19/2017 Keegan Ingram Diagnosis Active 2017-12-19 02:46:26 [facility] Encounter for screening for other viral diseases Encounter for screening for other viral diseases Active Diagnosis 09/02/2019 Keegan Ingram Diagnosis Active 2019-09-02 03:46:32 [facility] longterm (current) use of opiate analgesic longterm (current) use of opiate analgesic Active Diagnosis 09/02/2019 Keegan Ingram Diagnosis Active 2019-09-02 03:46:32 [facility] Encounter for screening for other bacterial diseases Encounter for screening for other bacterial diseases Active Diagnosis 09/02/2019 Keegan Ingram Diagnosis Active 2019-09-02 03:46:32 [facility] Screening for tuberculosis Scr eening for tuberculosis Active Diagnosis 09/02/2019 Keegan Ingram Diagnosis Active 2019-09-02 03:46:32 [facility] 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 Active Problem 04/24/2020 Keegan Ingram Problem Active 2020-04-24 02:45:06 [facility] Immunocompromised state Immu nocompromised state Active Problem 04/24/2020 Keegan Ingram Problem Active 2020-04-24 02 :45:06 [facility] Allergies, Adverse Reactions, Alerts Allergy Name Allergy Type Status Severity Reaction(s) Onset Date Inacti ve Date Treating Clinician Comments Source Remicade Remicade Active Info Not Available 2020-04-14 00:00:00 [facility] Mirapex Mirapex Active nausea/emesis 2020-04-14 00:00:00 [facility] latex DA Active U 2019-01-21 00:00:00 [facility] Latex Allergy to substance Active RASH 2017-06-28 00:00:00 [facility] N.K.AlixA. N.GladisA. Active Info Not Available 2017-02-28 00:00:00 [facility] latex DA Active U 2013-02-17 00:00:00 [facility] Latex Gloves Adverse Reaction Active Info Not Available [facility] Family History Family Member Diagnosis Comments Start Date Stop Date Source 33 FATHER Family history of arterial aneurysm [facility] 32 MOTHER Family history of arterial aneurysm [facility] 09 SISTER Family history of neuropathy [facility] Social History Social Habit Start Date Stop Date Quantity Comments Source Sex Assigned At 1935 00:00:00 1935 00:00:00 Male [facility] Smoking Status Start Date Stop Date Source Never smoker [facility] (LUF/IZAIAH/SA) Medications Ordered Medication Name Filled Medication Name Start Date Stop Da te Current Medication? Ordering Clinician Indication Dosage Frequency Signature (SIG) Comments Components Source Medrol Dose Davis 2020-04-22 00:00:00 Yes Gregory Ingram as directed [facility] Nexium 2020-04-19 02:46:07 Yes Milad Rodriguez TAKE ONE CAPSULE BY MOUTH EVERY DAY [facility] Atenolol 2020-04-19 02:46:07 Yes Milad Rodriguez 1 t ablet [facility] Gabapentin 2020-04-19 02:46:07 Yes Milad Rodriguez 1 tablet [facility] Vitamin D 2020-04-19 02:46:07 Yes Milad Rodriguez 1 tablet [facility] Tylenol/Codeine #3 2020-04-14 00:00:00 Yes Milad Rodriguez 1 tablet as needed [facility] Chlordiazepoxide HCl 2020-04-14 00:00:00 Yes Milad Rodriguez 1 capsule [facility] Tramadol HCl 2019-08-20 00:00:00 Yes Maria E Martines 1 tablet as needed [facility] Medrol Dose Davis 2018-12-01 00:00:00 Yes Walizabethehgerson BotelloClau as directed [facility] Chlordiazepoxide HCl 2018-09-09 00:00:00 Yes Maria E Martines 1 capsule [facility] Chlordiazepoxide HCl 2018-08-12 00:00:00 Yes Wajeeha Clau 1 capsule [facility] PredniSONE 2018-08-05 00:00:00 Yes Ronala Clau 1-2 tabs prn for arthritis flare up [facility] Zofran 2018-08-05 00:00:00 Yes Milad Rodriguez 1 tab let [facility] Nasacort Nasacort 2018-07-31 00:00:00 Yes Duane Mcdonnell 2 puffs in each nostril [facility] Ofloxacin Ofloxacin 2018-07-31 00:00:00 2018-08-06 00:00:00 No Jayla Mcdonnell 4 drops into affected ear [facility] Gabapentin 2018-06-17 02:46:27 Yes Evaristo Rolonf 1 tablet [facility] Tylenol/Codeine #3 2018-06-10 00:00:00 Yes Maria E Martines 1 tablet as needed [facility] Meclizine HCl 2018-06-10 00:00:00 Yes Milad Rodriguez 1 tablet as needed [facility] Atenolol 2018-01-25 02:45:48 Yes Philippe Jeroudi 1 tablet [facility] Azelastine HCl 2018-01-25 02:45:48 Yes Philippe Jeroudi 1 puff in each nostril [facility] Hydrocodone-Acetaminophen 2018-01-25 02:45:48 Yes Chasidyame d Jeroudi 1 tablet as needed [facility] Omeprazole 2018-01-25 02:45:48 Yes Mohamed Jeroudi 1 capsule [facility] Triamterene-HCTZ 2018-01-25 02:45:48 Yes Mohamed Jeroudi 1 tablet in the morning [facility] Gabapentin 2018-01-25 02:45:48 Yes Mohamed Jeroudi 1 tablet [facility] Asmanex 14 Metered Doses 2018-01-25 02:45:48 Yes Mohamed Jeroudi 1 puff in the evening [facility] Pramipexole Dihydrochloride 2018-01-25 02:45:48 Yes Moha med Jeroudi 1 tablet before bedtime [facility] Stiolto Respimat 2018-01-25 02:45:48 Yes Mohamed Jeroudi 2 puffs [facility] Vitamin D (Ergocalciferol) 2017-12-17 00:00:00 Yes Gretta Ingram 1 capsule [facility] Ciprodex Ciprodex 2017-12-11 00:00:00 Yes Duane Mcdonnell not defined [facility] Simponi Aria 2017-09-02 00:00:00 Yes Milad Rodriguez as directed [facility] PredniSONE 2017-08-20 00:00:00 Yes Gregory Melgarer 1-2 tabs PRN [facility] PredniSONE 2017-08-20 00:00:00 Yes Evaristo Clau 1-2 tabs PRN [facility] Atenolol 2017-07-23 02:45:17 Yes Mohamed Jeroudi 1 tablet [facility] Gabapentin 2017-07-23 02:45:17 Yes Mohamed Jeroudi 1 tablet [facility] Pramipexole Dihydrochloride 2017-07-23 02:45:17 Yes Moha med Jeroudi 1 tablet before bedtime [facility] Triamterene-HCTZ 2017-07-23 02:45:17 Yes Mohamed Jeroudi 1 tablet in the morning [facility] Omeprazole 2017-07-23 02:45:17 Yes Mohamed Jeroudi 1 capsule [facility] Azelastine HCl 2017-07-23 02:45:17 Yes Mohamed Jeroudi 1 puff in each nostril [facility] Asmanex 14 Metered Doses 2017-07-23 02:45:17 Yes Mohamed Jeroudi 1 puff in the evening [facility] Hydrocodone-Acetaminophen 2017-07-23 02:45:17 Yes Mohame d Jeroudi 1 tablet as needed [facility] Stiolto Respimat 2017-07-23 02:45:17 Yes Philippe Gibson 2 puffs [facility] Ranitidine HCl Ranitidine HCl 2017-07-16 00:00:00 Yes Duane Calero tton 1 tablet [facility] Tylenol/Codeine #3 2016-12-28 00:00:00 Yes Evaristo Rolon f 1 tablet as needed [facility] Acetaminophen 300 MG / Codeine Phosphate 60 MG Oral Ta blet Acetaminophen 300 MG / Codeine Phosphate 60 MG Oral Tablet Yes 1tab QID [facility] (F/IZAIAH/SA) Atenolol 50 MG Oral Tablet Atenolol 50 MG Oral Tablet Yes 50mg [facility] (F/IZAIAH/SA) gabapentin 600 MG Oral Tablet gabapentin 600 MG Oral Tablet Yes 600mg TID [facility] (F/IZAIAH/SA) Gabapentin Gabapentin Yes Duane Mcdonnell not defin ed [facility] Triamterene Triamterene Yes Duane Mcdonnell not def ined [facility] Atenolol Atenolol Yes Duane Mcdonnell not defined [facility] Acetamin Acetamin Yes Duane Mcdonnell not defined [facility] Acetaminophen With Codeine (Acetaminophen-Codeine Elix ir) 118 Ml ELIXIR Acetaminophen With Codeine (Acetaminophen-Codeine Elixir) 118 Ml ELIXIR Yes [facility] Atenolol Atenolol Yes 50 Daily [facility] Chlordiazepoxide Hcl Chlordiazepoxide Hcl Yes [facility] Gabapentin Gabapentin Yes 600 Daily [facility] Pantoprazole Sodium (Protonix) 40 Mg TABLET. Pantopr azole Sodium (Protonix) 40 Mg TABLET. Yes 40 Daily [facility] Ropinirole Hcl Ropinirole Hcl Yes 1 Three Time s A Day [facility] Spironolactone Spironolactone Yes [facility] Azithromycin (Z-Davis) 250 Mg TABLET Azithromycin (Z-Davis) 250 Mg T ABLET 2020-06-23 00:00:00 No 250 Use As Directed [facility] Ondansetron Ondansetron 2020-06-23 00:00:00 No [facility] Smz/Tmp Smz/Tmp 2020-06-23 00:00:00 No [facility] Gabapentin Gabapentin 2019-05-15 00:00:00 No 600 Thr ee Times A Day [facility] Ropinirole Hcl Ropinirole Hcl 2019-05-15 00:00:00 No .5 Bedtime [facility] Meclizine Hcl Meclizine Hcl 2019-03-11 00:00:00 No 25 Daily [facility] Pramipexole Di-Hcl (Pramipexole Dihydrochloride) 0.25 Mg TABLET Pramipexole Di- Hcl (Pramipexole Dihydrochloride) 0.25 Mg TABLET 2019-03-11 00:00:00 No .5 Twice A Day [facility] Triamterene/Hctz Triamterene/Hctz 2019-03-11 00:00:00 No Daily [facility] Vital Signs Vital Name Observation Time Observation Value Comments Source Body Temperature 2020-06-25 15:43:00 98.8 [degF] [facility] Weight 2020-06-23 12:43:00 229.04 [lb_av] [facility] BMI (Body Mass Index) 2020-06-23 12:43:00 31.9 kg/m2 [facility] Body Temperature 2020-06-10 09:19:00 97.0 [degF] [facility] BMI (Body Mass Index) 2020-06-09 01:00:00 28.9 kg/m2 [facility] Weight 2020-06-08 17:30:00 213 [lb_av] [facility] Body Temperature 2020-05-20 19:48:00 98.4 [degF] [facility] Weight 2020-05-20 15:27:00 210 [lb_av] [facility] BMI (Body Mass Index) 2020-05-20 15:27:00 30.1 kg/m2 [facility] Weight 2020-04-14 20:00:00 [facility] Height 2020-04-14 20:00:00 [facility] Temperature Oral (F) 2020-04-14 20:00:00 97.9 F [facility] Heart Rate 2020-04-14 20:00:00 [facility] Diastolic (mm Hg) 2020-04-14 20:00:00 [facility] Systolic (mm Hg) 2020-04-14 20:00:00 Armando [facility] Weight 2019-08-20 20:30:00 [facility] Height 2019-08-20 20:30:00 [facility] Temperature Oral (F) 2019-08-20 20:30:00 97.7 F [facility] Heart Rate 2019-08-20 20:30:00 [facility] Diastolic (mm Hg) 2019-08-20 20:30:00 [facility] Systolic (mm Hg) 2019-08-20 20:30:00 Armando rial [facility] Weight 2019-06-16 18:45:00 [facility] Height 2019-06-16 18:45:00 [facility] Temperature Oral (F) 2019-06-16 18:45:00 98.9 F [facility] Heart Rate 2019-06-16 18:45:00 [facility] Diastolic (mm Hg) 2019-06-16 18:45:00 [facility] Systolic (mm Hg) 2019-06-16 18:45:00 Armando rial [facility] Weight 2019-01-05 16:45:00 [facility] Height 2019-01-05 16:45:00 [facility] Temperature Oral (F) 2019-01-05 16:45:00 96.8 F [facility] Heart Rate 2019-01-05 16:45:00 [facility] Diastolic (mm Hg) 2019-01-05 16:45:00 [facility] Systolic (mm Hg) 2019-01-05 16:45:00 [facility]ando [facility] Weight 2018-11-07 16:15:00 [facility] Height 2018-11-07 16:15:00 [facility] Temperature Oral (F) 2018-11-07 16:15:00 96.6 F [facility] Heart Rate 2018-11-07 16:15:00 [facility] Diastolic (mm Hg) 2018-11-07 16:15:00 [facility] Systolic (mm Hg) 2018-11-07 16:15:00 Armando mitzil [facility] Weight 2018-11-04 19:15:00 [facility] Height 2018-11-04 19:15:00 [facility] Temperature Oral (F) 2018-11-04 19:15:00 98.0 F [facility] Rate 2018-11-04 19:15:00 [facility] Diastolic (mm Hg) 2018-11-04 19:15:00 Mem [facility] Systolic (mm Hg) 2018-11-04 19:15:00 Armando rial [facility]vi Weight 2018-09-09 19:00:00 [facility] Height 2018-09-09 19:00:00 [facility] Temperature Oral (F) 2018-09-09 19:00:00 98.8 F [facility] Heart Rate 2018-09-09 19:00:00 [facility] Diastolic (mm Hg) 2018-09-09 19:00:00 [facility] Systolic (mm Hg) 2018-09-09 19:00:00 [facility]ando [facility] Weight 2018-08-12 21:00:00 [facility] Height 2018-08-12 21:00:00 [facility] Temperature Oral (F) 2018-08-12 21:00:00 97.2 F [facility] Heart Rate 2018-08-12 21:00:00 [facility] Diastolic (mm Hg) 2018-08-12 21:00:00 [facility] Systolic (mm Hg) 2018-08-12 21:00:00 Armando [facility] Weight 2018-08-05 19:00:00 [facility] Height 2018-08-05 19:00:00 [facility] Temperature Oral (F) 2018-08-05 19:00:00 98.5 F [facility] Heart Rate 2018-08-05 19:00:00 [facility] Diastolic (mm Hg) 2018-08-05 19:00:00 [facility] Systolic (mm Hg) 2018-08-05 19:00:00 [facility]ando [facility] Weight 2018-06-10 18:30:00 [facility] Height 2018-06-10 18:30:00 [facility] Temperature Oral (F) 2018-06-10 18:30:00 97.0 F [facility] Heart Rate 2018-06-10 18:30:00 [facility] Diastolic (mm Hg) 2018-06-10 18:30:00 [facility] Systolic (mm Hg) 2018-06-10 18:30:00 [facility]ando [facility] Body Temperature 2018-02-22 12:32:00 98.2 F [facility] (LUF/IZAIAH/SA) Respiratory Rate 2018-02-22 12:32:00 20 /min [facility] (LUF/IZAIAH/SA) O2% BldC Oximetry 2018-02-22 12:32:00 98 % [facility] (LUF/IZAIAH/SA) BP Systolic 2018-02-22 12:32:00 128 mm[Hg] [facility] (LUF/IZAIAH/SA) BP Diastolic 2018-02-22 12:32:00 71 mm[Hg] [facility] (LUF/IZAIAH/SA) Height 2018-02-22 12:32:00 71 in [facility] (LUF/IZAIAH/SA) Weight Measured 2018-02-22 12:32:00 237 lbs [facility] (LUF/IZAIAH/SA) BMI (Body Mass Index) 2018-02-22 12:32:00 33.1 [facility] (LUF/IZAIAH/SA) Weight 2018-02-13 18:15:00 [facility] Height 2018-02-13 18:15:00 [facility] Temperature Oral (F) 2018-02-13 18:15:00 97.3 F [facility] Heart Rate 2018-02-13 18:15:00 [facility] Diastolic (mm Hg) 2018-02-13 18:15:00 [facility] Systolic (mm Hg) 2018-02-13 18:15:00 Armando rial [facility]vi Weight 2017-12-16 20:00:00 [facility] Height 2017-12-16 20:00:00 [facility] Temperature Oral (F) 2017-12-16 20:00:00 98.2 F [facility] Heart Rate 2017-12-16 20:00:00 [facility] Diastolic (mm Hg) 2017-12-16 20:00:00 [facility] Systolic (mm Hg) 2017-12-16 20:00:00 Armando [facility] [place] Weight 2017-10-21 21:30:00 [facility] Height 2017-10-21 21:30:00 [facility] Temperature Oral (F) 2017-10-21 21:30:00 99.0 F [facility] Heart Rate 2017-10-21 21:30:00 [facility] Diastolic (mm Hg) 2017-10-21 21:30:00 [facility] Systolic (mm Hg) 2017-10-21 21:30:00 Armando [facility] [place] Weight 2017-02-28 18:00:00 [facility] Height 2017-02-28 18:00:00 [facility] Temperature Oral (F) 2017-02-28 18:00:00 97.3 F [facility] Heart Rate 2017-02-28 18:00:00 [facility] Diastolic (mm Hg) 2017-02-28 18:00:00 [facility] Systolic (mm Hg) 2017-02-28 18:00:00 Armando [facility] [place] Weight 2017-01-31 20:00:00 [facility] Height 2017-01-31 20:00:00 [facility] Temperature Oral (F) 2017-01-31 20:00:00 97.6 F [facility] Heart Rate 2017-01-31 20:00:00 [facility] Diastolic (mm Hg) 2017-01-31 20:00:00 [facility] Systolic (mm Hg) 2017-01-31 20:00:00 Armando [facility] Weight 2017-01-16 20:30:00 [facility] Height 2017-01-16 20:30:00 [facility] Temperature Oral (F) 2017-01-16 20:30:00 98.0 F [facility] Heart Rate 2017-01-16 20:30:00 [facility] Diastolic (mm Hg) 2017-01-16 20:30:00 [facility] Systolic (mm Hg) 2017-01-16 20:30:00 [facility] Procedures Procedure Date / Time Performed Performing Clinician [facility] e X-ray of chest, two views 2020-06-24 00:00:00 [facility] CT of abdomen and pelvis without contrast 2020-05-20 00:00:00 [facility] Computed tomography of abdomen and pelvis with contrast 00:00:00 [facility] Computed tomography of brain without radiopaque contrast 2020-03 00:00:00 [facility] Plan of Care Planned Activity Planned Date Details Comments Source Instructions Pneumonia - Bacterial [facility] Instructions Weakness (Generalized) [facility] Encounters Start Date/Time End Date/Time Encounter Type Admission Type [facility] Care Department Encounter ID Source 2020-06-24 10:33:00 2020-06-25 18:11:00 Discharged Inpatient 1 ARZOLA, [facility] [id number] [facility] 2020-06-08 21:24:00 2020-06-10 11:01:00 Discharged Inpatient (obs) 1 RACQUEL DELGADO [facility] [id number] [facility] 2020-05-20 17:40:00 2020-05-20 20:15:00 Departed Emergency Room TRACEE AUDIANA [facility] [id number] [facility] 2020-05-12 16:56:00 2020-05-12 16:56:00 Registered Clinic 3 ARZOLANIECY Howe [facility] [id number] [facility] 2020-05-11 17:07:00 2020-05-11 17:07:00 [facility]istered [facility] [address] [facility] [id number] [facility] 2020-04-22 09:51:00 2020-04-22 09:51:00 Outpatient Gregory Ingram MD [place] [id number] Keegan Ingram MD 2020-04-14 15:00:00 2020-04-14 15:00:00 Outpatient Gregory Ingram MD PA [id number] Keegan Ingram MD 2020-04-01 12:13:00 2020-04-02 21:44:00 Discharged Inpatient 1 AG JACOBSEN [facility] Patients [facility] [id number] [facility]. Ena kes - Patients [facility] 2020-03-16 13:53:00 2020-03-16 15:50:00 Departed Emergency Room [facility] [id number] [facility]. [facility] - Patients [facility] 2020-03-14 13:57:00 2020-03-14 13:57:00 Outpatient Gregory Ingram MD [place] [id number] Keegan Ingram MD 2020-03-13 16:51:00 2020-03-14 00:05:00 Departed Emergency Room 1 PER AU [facility] [id number] [facility]. [facility] 2019-11-09 15:05:00 2019-11-09 15:05:00 Outpatient MD GALILEA Cazares MD [place] [id number] Keegan Ingram MD 2019-10-28 16:53:00 2019-10-28 16:53:00 Outpatient MD GALILEA Cazares MD [place] [id number] Keegan Ingram MD 2019-08-20 14:53:00 2019-08-20 14:53:00 Outpatient MD GALILEA Cazares MD [place] [id number] Keegan Ingram MD 2019-08-20 14:30:00 2019-08-20 14:30:00 Outpatient Gregory Ingram MD PA [id number] Keegan Ingram MD 2019-06-16 13:45:00 2019-06-16 13:45:00 Outpatient Gregory Ingram MD PA [id number] MIRACLE Ingram MD 2019-06-03 12:40:00 2019-06-03 12:40:00 Outpatient MD GALILEA Villa MD [place] [id number] Keegan Ingram MD 2019-05-20 11:17:00 2019-05-20 11:17:00 Outpatient Gregory CALERO [id number] MIRACLE Ingram MD 2019-05-14 02:17:00 2019-05-15 18:35:00 Discharged Inpatient (obs) 1 [facility] [id number] [facility] 2019-03-30 14:59:00 2019-03-30 14:59:00 Outpatient Gregory CALERO [id number] Keegan Ingram MD 2019-03-17 07:14:00 2019-03-17 07:14:00 Registered Surgical Day Car e [facility] [id number] [facility] 2019-03-04 16:27:00 2019-03-04 16:27:00 Outpatient Gregory CALERO [id number] Keegan Ingram MD 2019-01-08 10:55:00 2019-01-08 10:55:00 Outpatient [facility] [id number] [facility] 2019-01-05 11:45:00 2019-01-05 11:45:00 Outpatient Gregory CALERO [id number] Keegan Ingram MD 2018-12-01 16:00:00 2018-12-01 16:00:00 Outpatient Gregory CALERO [id number] MIRACLE Ingram MD 2018-11-28 13:18:00 2018-11-28 13:18:00 Outpatient Gregory CALERO [id number] MIRACLE Ingram MD 2018-11-07 10:15:00 2018-11-07 10:15:00 Outpatient Gregory CALERO [id number] Keegan Ingram MD 2018-11-04 13:15:00 2018-11-04 13:15:00 Outpatient Gregory CALERO [id number] Keegan Ingram MD 2018-09-09 13:00:00 2018-09-09 13:00:00 Outpatient Gregory CALERO [id number] Keegan Ingram MD 2018-08-26 14:53:00 2018-08-26 14:53:00 Outpatient Gregory CALERO [id number] Keegan Ingram MD 2018-08-12 15:00:00 2018-08-12 15:00:00 Outpatient Gregory CALERO [id number] Keegan Ingram MD 2018-08-05 13:00:00 2018-08-05 13:00:00 Outpatient Gregory CALERO [id number] Keegan Ingram MD 2018-07-31 10:00:00 2018-07-31 10:00:00 Outpatient [facility] ENT P [id number] [facility] 2018-07-30 15:49:00 2018-07-30 15:49:00 Outpatient [facility] ENT [facility] [id number] [facility] 2018-06-23 18:55:00 2018-06-23 18:55:00 [facility] [id number] [facility] 2018-06-10 14:46:00 2018-06-10 14:46:00 Outpatient Gregory CALERO [id number] Keegan Ingram MD 2018-06-10 13:30:00 2018-06-10 13:30:00 Outpatient Gregory CALERO [id number] Keegan Ingram MD 2018-02-22 12:13:00 2018-02-22 14:30:00 FX 1 RIB LT SIDE INITIAL CL OS FX 1 JOE EASLEY [facility], [address] [place] [address] , [place] [address] [facility] [id number] [facility] (LUF /IZAIAH/SA) 2018-02-13 13:15:00 2018-02-13 13:15:00 Outpatient Gregory Ingram MD [place] [id number] Keegan Ingram MD 2018-02-11 15:39:00 2018-02-11 15:39:00 Outpatient Gregory Ingram MD PA [id number] Keegan Ingram MD 2017-12-17 12:56:00 2017-12-17 12:56:00 Outpatient Gregory CALERO [id number] Keegan Ingram MD 2017-12-16 15:00:00 2017-12-16 15:00:00 Outpatient Gregory Ingram MD PA [id number] Keegan Ingram MD 2017-12-11 13:20:00 2017-12-11 13:20:00 Outpatient [facility] [id number] [facility] 2017-12-04 13:00:00 2017-12-04 13:00:00 Outpatient [facility] [id number] [facility] 2017-10-22 08:34:00 2017-10-22 08:34:00 Outpatient Gregory Ingram MD PA [id number] Keegan Ingram MD 2017-10-21 15:30:00 2017-10-21 15:30:00 Outpatient Gregory Ingram MD PA [id number] Keegan Ingram MD 2017-02-28 13:00:00 2017-02-28 13:00:00 Outpatient Philippe Gibson MD PA [id number] [employer] 2017-02-12 11:00:00 2017-02-12 11:00:00 Outpatient Philippe Gibson MD PA [id number] [employer] 2017-01-31 15:00:00 2017-01-31 15:00:00 Outpatient Philippe Gibson MD PA [id number] [employer] 2017-01-16 15:30:00 2017-01-16 15:30:00 Outpatient Philippe Gibson MD PA [id number] [employer] Results Test Description Test Time Test Comments Results Result Comments Source Blood leukocytes automated count (number/volume) 2020-06-25 05:30:00 Test Item White Blood Count (test code = 6690-2) 6.73 4.8-10.8 [facility] erythrocytes automated count (number/volume)2020-06-25 05:30:00* Test Item Value Reference Range Interpretation Comments Red Blood Count (test code = 789-8) 4.04 4.3-5.7 [facility] HospitalBlood hemoglobin measurement (moles/volume)2020-06-25 05:30:00* Test Item Value Reference Range Interpretation Comments Hemoglobin (test code = 68309-0) 12.0 14.0-18.0 [facility] HospitalAutomated blood hematocrit (volume fraction)2020-06-25 05:30:00* Test Item Value Reference Range Interpretation Comments Hematocrit (test code = 4544-3) 37.1 38.2-49.6 [facility] HospitalAutomated erythrocyte mean corpuscular njkwjd4488-27-91 05:30:00* Test Item Value Reference Range Interpretation Comments Mean Corpuscular Volume (test code = 787-2) 91.8 81-99 [facility] HospitalAutomated erythrocyte mean corpuscular hemoglobin (mass per erythrocyte)2020-06-25 05:30:00* Test Item Value Reference Range Interpretation Comments Mean Corpuscular Hemoglobin (test code = 785-6) 29.7 28-32 [facility] HospitalAutomated erythrocyte mean corpuscular hemoglobin concentration measurement (mass/volume)2020-06-25 05:30:00* Test Item Value Reference Range Interpretation Comments Mean Corpuscular Hemoglobin Concent (test code = 786-4) 32.3 31-35 [facility] HospitalRDW BjxLx-Jpl1743-61-26 05:30:00* Test Item Value Reference Range Interpretation Comments Red Cell Distribution Width (test code = 67299-6) 13.7 11.7 -14.4 [facility] HospitalAutomated blood platelet count (count/volume)2020-06-25 05:30:00* Test Item Value Reference Range Interpretation Comments Platelet Count (test code = 777-3) 151 140-360 [facility] HospitalAutomated blood segmented neutrophil count as percentage of total xyxzlovqsx9569-89-93 05:30:00* Test Item Value Reference Range Interpretation Comments Neutrophils (%) (Auto) (test code = 88247-6) 56.7 38.7-80.0 [facility] HospitalAutomated blood lymphocyte count as percentage ot total sjustiaxas5461-32-73 05:30:00* Test Item Value Reference Range Interpretation Comments Lymphocytes (%) (Auto) (test code = 736-9) 29.1 18.0-39.1 [facility] HospitalAutomated blood monocyte count as percentage of total fnxcqzsccd2846-08-26 05:30:00* Test Item Value Reference Range Interpretation Comments Monocytes (%) (Auto) (test code = 5905-5) 11.4 4.4-11.3 [facility] HospitalAutomated blood eosinophil count as percentage of total erivsirbsm9089-37-95 05:30:00* Test Item Value Reference Range Interpretation Comments Eosinophils (%) (Auto) (test code = 713-8) 1.9 0.0-6.0 [facility] HospitalAutomated blood basophil count as percentage of total kpigrjvmuw7922-90-25 05:30:00* Test Item Value Reference Range Interpretation Comments Basophils (%) (Auto) (test code = 706-2) 0.6 0.0-1.0 [facility] HospitalFluoroscopic procedure less than one hour welnknaj1245-74-29 05:30:00* Test Item Value Reference Range Interpretation Comments IM GRANULOCYTES % (test code = IM GRANULOCYTES %) 0.3 0.0- 1.0 [facility] HospitalAutomated blood neutrophil count 2020-06-25 05:30:00* Test Item Value Reference Range Interpretation Comments Neutrophils # (Auto) (test code = 751-8) 3.8 2.1-6.9 [facility] HospitalBlood lymphocytes count (number/volume) 2020-06-25 05:30:00* Test Item Value Reference Range Interpretation Comments Lymphocytes # (Auto) (test code = 53995-9) 2.0 1.0-3.2 [facility] HospitalBlood monocytes automated count (number/volume)2020-06-25 05:30:00* Test Item Value Reference Range Interpretation Comments Monocytes # (Auto) (test code = 742-7) 0.8 0.2-0.8 [facility] HospitalAutomated blood eosinophil count 2020-06-25 05:30:00* Test Item Value Reference Range Interpretation Comments Eosinophils # (Auto) (test code = 711-2) 0.1 0.0-0.4 [facility] HospitalAutomated blood basophil count (count/volume)2020-06-25 05:30:00* Test Item Value Reference Range Interpretation Comments Basophils # (Auto) (test code = 704-7) 0.0 0.0-0.1 [facility] HospitalFluoroscopic procedure less than one hour diuqkvid2165-63-43 05:30:00* Test Item Value Reference Range Interpretation Comments Absolute Immature Granulocyte (auto (faye t code = Absolute Immature Granulocyte (auto) 0.02 0-0.1 [facility] sodium measurement (moles/volume)2020-06-25 05:30:00* Test Item Value Reference Range Interpretation Comments Sodium Level (test code = 2951-2) 142 136-145 [facility]ere[facility] plasma potassium measurement (moles/volume)2020-06-25 05:30:00* Test Item Value Reference Range Interpretation Comments Potassium Level (test code = 2823-3) 3.5 3.5-5.1 [facility] plasma chloride measurement (moles/volume)2020-06-25 05:30:00* Test Item Value Reference Range Interpretation Comments Chloride Level (test code = 2075-0) 111 98-107 [facility]ererum or plasma carbon dioxide, total measurement (moles/volume)2020-06-25 05:30:00* Test Item Value Reference Range Interpretation Comments Carbon Dioxide Level (test code = 2028-9) 24 22-29 [facility] or plasma anion lgj9164-39-70 05:30:00* Test Item Value Reference Range Interpretation Comments Anion Gap (test code = 44139-1) 10.5 8-16 [facility] or plasma urea nitrogen measurement (mass/volume)2020-06-25 05:30:00* Test Item Value Reference Range Interpretation Comments Blood Urea Nitrogen (test code = 3094-0) 8 7-26 [facility]ere[facility] or plasma creatinine measurement (mass/volume)2020-06-25 05:30:00* Test Item Value Reference Range Interpretation Comments Creatinine (test code = 2160-0) 0.86 0.72-1.25 [facility] or plasma urea nitrogen/creatinine mass drtih2732-71-81 05:30:00* Test Item Value Reference Range Interpretation Comments BUN/Creatinine Ratio (test code = 3097-3) 9 6- [facility] HospitalEstimated glomerular filtration rate (GFR) klpaioudabomg9981-75-38 05:30:00* Test Item Value Reference Range Interpretation Comments Estimat Glomerular Filtration Rate (test code = 224424611) > 60 >60 Ranges were taken from the National Kidney Disease Education Program and the [employer] literature.Reference ranges:60 or greater: Bqervb08-21 ( for 3 consecutive months): Chronic kidney disease 15 or less: Kidney failureAudie L. Murphy Memorial VA HospitalGlucose tslfsyeptjf0558-59-81 05:30:00* Test Item Value Reference Range Interpretation Comments Glucose Level (test code = RLM6875) 89 74-118 [facility] or plasma calcium measurement (mass/volume)2020-06-25 05:30:00* Test Item Value Reference Range Interpretation Comments Calcium Level (test code = 56067-7) 8.1 8.4-10.2 [facility]ererum or plasma trough vancomycin level at trough (mass/volume)2020-06-24 15:43:00* Test Item Value Reference Range Interpretation Comments Vancomycin Level Trough (test code = 4092-3) 11.0 5.0-10.0 Results repeated and called to OXANA MCKEON RN at 1626 on 06/24/20 by Morgan Arzola. Read back and verified.[facility] HospitalCHES 2 GDKSL2385-66-82 11:37:00 [facility] [address] [address] Patient Name: NOEMY ARGUETA MR #: [id number] : 1935 Age/Sex: 85/M Req #: [id number] Adm Physician: KLAUDIA ARZOLA MD Ordered by: KLAUDIA ARZOLA MD Report #: [id number] Location: MED/SURG2 Room/Bed: [facility] Procedure: [id number] DX/CHEST 2 VIE WS Exam Date: Exam [...] Kinase (test code = 2157-6) 69 30-200 [facility]ere[facility] or plasma creatine kinase MB measurement (mass/volume)2020-06-23 10:30:00* Test Item Value Reference Range Interpretation Comments Creatine Kinase MB (test code = 06294-1) 2.50 0-5.0 [facility] HospitalTroponin I measurement by highly sensitive enzyme kbgmacqqqqz0630-40-50 10:30:00* Test Item Value Reference Range Interpretation Comments Troponin I (test code = 26488-7) 0.015 0-0.300 [facility] or plasma total bilirubin measurement (mass/volume)2020-06-23 06:20:00* Test Item Value Reference Range Interpretation Comments Total Bilirubin (test code = 1975-2) 0.6 0.2-1.2 [facility] HospitalFluoroscopic procedure less than one hour dkxuieud0019-50-11 06:20:00* Test Item Value Reference Range Interpretation Comments Aspartate Amino Transf (AST/SGOT) (test code = Aspartate Amino Transf (AST/SGOT)) 15 5-34 [facility] or plasma alanine aminotransferase measurement (enzymatic activity/volume)2020-06-23 06:20:00* Test Item Value Reference Range Interpretation Comments Alanine Aminotransferase (ALT/SGPT) (test code = 1742-6) 12 0-55 [facility] or plasma protein measurement (mass/volume)2020-06-23 06:20:00* Test Item Value Reference Range Interpretation Comments Total Protein (test code = 2885-2) 5.7 6.5-8.1 [facility] or plasma albumin measurement (mass/volume)2020-06-23 06:20:00* Test Item Value Reference Range Interpretation Comments Albumin (test code = 1751-7) 3.3 3.5-5.0 [facility] HospitalPlasma globulin measurement (mass/volume) 2020-06-23 06:20:00* Test Item Value Reference Range Interpretation Comments Globulin (test code = 82609-9) 2.4 2.3-3.5 [facility] or plasma albumin/globulin mass ytndw7554-43-77 06:20:00* Test Item Value Reference Range Interpretation Comments Albumin/Globulin Ratio (test code = 1759-0) 1.4 0.8-2.0 [facility] or plasma alkaline phosphatase measurement (enzymatic activity/volume)2020-06-23 06:20:00* Test Item Value Reference Range Interpretation Comments Alkaline Phosphatase (test code = 6768-6) 55 40-150 [facility] HospitalUrine color nmsokqhmykejr6628-43-12 19:09:00* Test Item Value Reference Range Interpretation Comments Urine Color (test code = 5778-6) YELLOW YELLOW [facility] HospitalUrine kzebjbj0401-30-09 19:09:00* Test Item Value Reference Range Interpretation Comments Urine Clarity (test code = 06540-5) CLEAR CLEAR [facility] Centerpecific gravity of Urine by Test strip 2020-06-22 19:09:00* Test Item Value Reference Range Interpretation Comments Urine Specific [place] (test code = 5811-5) 1.010 1.010-1.02 5 [facility] HospitalUrine pH measurement by automated test uzabb4527-82-96 19:09:00* Test Item Value Reference Range Interpretation Comments Urine pH (test code = 36601-4) 5.5 5-7 [facility] HospitalUrine leukocyte esterase detection by ywhnpeyu5512-23-38 19:09:00* Test Item Value Reference Range Interpretation Comments Urine Leukocyte Esterase (test code = 5799-2) NEGATIVE NEGATIVE [facility] HospitalUrine nitrite mnzwiofmw6155-11-47 19:09:00* Test Item Value Reference Range Interpretation Comments Urine Nitrite (test code = 60004-1) NEGATIVE NEGATIVE [facility] HospitalUrine protein measurement by test strip (mass/volume)2020-06-22 19:09:00* Test Item Value Reference Range Interpretation Comments Urine Protein (test code = 5804-0) NEGATIVE NEGATIVE [facility] HospitalUrine glucose lmwxsjihc0988-46-49 19:09:00* Test Item Value Reference Range Interpretation Comments Urine Glucose (UA) (test code = 2349-9) NEGATIVE NEGATIVE [facility] HospitalUrine ketones detection by automated test vcake3249-67-62 19:09:00* Test Item Value Reference Range Interpretation Comments Urine Ketones (test code = 05951-5) NEGATIVE NEGATIVE [facility] HospitalUrine urobilinogen measurement by test strip (mass/volume)2020-06-22 19:09:00* Test Item Value Reference Range Interpretation Comments Urine Urobilinogen (test code = 71245-5) 0.2 0.2-1 [facility] HospitalUrine total bilirubin measurement (mass/volume)2020-06-22 19:09:00* Test Item Value Reference Range Interpretation Comments Urine Bilirubin (test code = 1978-6) NEGATIVE NEGATIVE [facility] HospitalUrine erythrocytes xaamcicyk5328-82-95 19:09:00* Test Item Value Reference Range Interpretation Comments Urine Blood (test code = 83872-6) NEGATIVE NEGATIVE [facility] HospitalAutomated urine sediment leukocyte count by microscopy (number/high power field)2020-06-22 19:09:00* Test Item Value Reference Range Interpretation Comments Urine WBC (test code = 5821-4) NONE 0-5 [facility] HospitalErythrocytes detection in urine sediment by light tdkafglzzt7167-62-97 19:09:00* Test Item Value Reference Range Interpretation Comments Urine RBC (test code = 04106-2) NONE 0-5 [facility] HospitalBacteria detection in urine sediment by light rbripfvrqm5840-42-70 19:09:00* Test Item Value Reference Range Interpretation Comments Urine Bacteria (test code = 16830-5) NONE NONE [facility] HospitalEpithelial cells detection in urine sediment by light ffmltlgazx2719-51-88 19:09:00* Test Item Value Reference Range Interpretation Comments Urine Epithelial Cells (test code = 51408-4) RARE NONE [facility] HospitalCHEST SINGLE (PORTABLE)2020-06-22 17:05:00 [facility] [address] [place] [address] Patient Name: NOEMY ARGUETA MR #: [id number] : 1935 Age/Sex: 85/M Req #: [id number] [facility] Physician: Ordered by: PER AU MD Report #: [id number] Location: ER Room/Bed: Procedure: [id number] DX/CHEST SINGLE (PORTABLE) Exam Date: 06/22/20 Exam [...] AU MD Erythrocyte sedimentation rate by Westergren vtklnd0963-88-76 15:55:00* Test Item Value Reference Range Interpretation Comments Erythrocyte Sedimentation Rate (test code = 4537-7) 18 0- 13 [facility] HospitalFluoroscopic procedure less than one hour nllbpbqq8019-59-35 15:55:00* Test Item Value Reference Range Interpretation [...] under 564(g) of the ACT.Testing performed by [facility] [place], [place] [address]AONAudie L. [facility] HospitalProthrombin time (PT) in platelet poor plasma by coagulation vwgaf9281-89-40 15:19:00* Test Item Value Reference Range Interpretation Comments Prothrombin Time (test code = 5902-2) 13.8 11.9-14.5 [facility] HospitalINR in Platelet poor plasma by Coagulation edpoe2765-82-30 15:19:00* Test Item Value Reference Range Interpretation Comments Prothromb Time International Ratio (test code = 6301-6) 1.01 Oral Anticoagulant Therapy INR Values:1. Low Intensity Therapy 1.5 - 2.02 . Moderate Intensity Therapy 2.0 - 3.03. High Intensity Therapy(1) 2.5 - 3. 54. High Intensity Therapy(2) 3.0 - 4.05. Panic Value INR > 5.0 [facility] HospitalActivated partial thromboplastin time (aPTT) in platelet poor plasma by coagulation jqxnu5675-21-93 15:19:00* Test Item Value Reference Range Interpretation Comments Activated Partial Thromboplast Time (test code = 86959-1) 28.3 23.8-35.5 [facility] HospitalFluoroscopic procedure less than one hour klfvxwsp2587-90-61 15:19:00* Test Item Value Reference Range Interpretation Comments Lactic Acid Level (test code = Lactic Acid Level) 1.4 0.5- 2.0 [facility] HospitalBNP Hqp-gClz9600-91-23 15:19:00* Test Item Value Reference Range Interpretation Comments B-Type Natriuretic Peptide (test code = 33236-8) 42.4 0-100 [facility] HospitalBlood fmuuuly4794-40-44 15:11:00* Test Item Value Reference Range Interpretation Comments Blood Culture (test code = 05263374) NO GROWTH AFTER 72 HOURS [facility] HospitalBacterial blood lvhpzoa7670-00-07 15:11:00* Test Item Value Reference Range Interpretation Comments Blood Culture (test code = 600-7) STAPHYLOCOCCUS SP COAG NEG [facility] HospitalBlst. [facility] leukocytes automated count (number/volume)2020-06-10 05:35:00* Test Item Value Reference Range Interpretation Comments White Blood Count (test code = 6690-2) 5.95 4.8-10.8 [facility] erythrocytes automated count (number/volume)2020-06-10 05:35:00* Test Item Value Reference Range Interpretation Comments Red Blood Count (test code = 789-8) 3.85 4.3-5.7 [facility] (moles/volume)2020-06-10 05:35:00* Test Item Value Reference Range Interpretation Comments Hemoglobin (test code = 00989-1) 11.5 14.0-18.0 [facility] HospitalAutomated blood hematocrit (volume fraction)2020-06-10 05:35:00* Test Item Value Reference Range Interpretation Comments Hematocrit (test code = 4544-3) 34.7 38.2-49.6 [facility] HospitalAutomated erythrocyte mean corpuscular hakcwd9999-73-27 05:35:00* Test Item Value Reference Range Interpretation Comments Mean Corpuscular Volume (test code = 787-2) 90.1 81-99 [facility] HospitalAutomated erythrocyte mean corpuscular hemoglobin (mass per erythrocyte)2020-06-10 05:35:00* Test Item Value Reference Range Interpretation Comments Mean Corpuscular Hemoglobin (test code = 785-6) 29.9 28-32 [facility] HospitalAutomated erythrocyte mean corpuscular hemoglobin concentration measurement (mass/volume)2020-06-10 05:35:00* Test Item Value Reference Range Interpretation Comments Mean Corpuscular Hemoglobin Concent (test code = 786-4) 33.1 31-35 [facility] HospitalRDW OqxDj-Mjz8493-15-11 05:35:00* Test Item Value Reference Range Interpretation Comments Red Cell Distribution Width (test code = 82942-2) 13.6 11.7 -14.4 [facility] HospitalAutomated blood platelet count (count/volume)2020-06-10 05:35:00* Test Item Value Reference Range Interpretation Comments Platelet Count (test code = 777-3) 144 140-360 [facility] neutrophil count as percentage of total vhsqzrtkfh2235-68-75 05:35:00* Test Item Value Reference Range Interpretation Comments Neutrophils (%) (Auto) (test code = 97923-0) 53.6 38.7-80.0 [facility] HospitalAutomated blood lymphocyte count as percentage ot total lmdybvphtc4123-48-19 05:35:00* Test Item Value Reference Range Interpretation Comments Lymphocytes (%) (Auto) (test code = 736-9) 32.3 18.0-39.1 [facility]ered blood monocyte count as percentage of total itvlltuqzr2026-95-04 05:35:00* Test Item Value Reference Range Interpretation Comments Monocytes (%) (Auto) (test code = 5905-5) 11.3 4.4-11.3 [facility] HospitalAutomated blood eosinophil count as percentage of total ubgvlwzfzj4343-23-25 05:35:00* Test Item Value Reference Range Interpretation Comments Eosinophils (%) (Auto) (test code = 713-8) 1.7 0.0-6.0 [facility] HospitalAutomated blood basophil count as percentage of total wwerrjcdkb9948-16-59 05:35:00* Test Item Value Reference Range Interpretation Comments Basophils (%) (Auto) (test code = 706-2) 0.8 0.0-1.0 [facility] HospitalFluoroscopic procedure less than one hour wopnjkiz7862-25-28 05:35:00* Test Item Value Reference Range Interpretation Comments IM GRANULOCYTES % (test code = IM GRANULOCYTES %) 0.3 0.0- 1.0 [facility] HospitalAutomated blood neutrophil count 2020-06-10 05:35:00* Test Item Value Reference Range Interpretation Comments Neutrophils # (Auto) (test code = 751-8) 3.2 2.1-6.9 [facility] HospitalBlood lymphocytes count (number/volume) 2020-06-10 05:35:00* Test Item Value Reference Range Interpretation Comments Lymphocytes # (Auto) (test code = 22991-4) 1.9 1.0-3.2 [facility] monocytes automated count (number/volume)2020-06-10 05:35:00* Test Item Value Reference Range Interpretation Comments Monocytes # (Auto) (test code = 742-7) 0.7 0.2-0.8 [facility] HospitalAutomated blood eosinophil count 2020-06-10 05:35:00* Test Item Value Reference Range Interpretation Comments Eosinophils # (Auto) (test code = 711-2) 0.1 0.0-0.4 [facility] HospitalAutomated blood basophil count (count/volume)2020-06-10 05:35:00* Test Item Value Reference Range Interpretation Comments Basophils # (Auto) (test code = 704-7) 0.1 0.0-0.1 [facility] HospitalFluoroscopic procedure less than one hour wblrkxlv9411-69-09 05:35:00* Test Item Value Reference Range Interpretation Comments Absolute Immature Granulocyte (auto (faye t code = Absolute Immature Granulocyte (auto) 0.02 0-0.1 [facility]ererum or plasma sodium measurement (moles/volume)2020-06-10 05:35:00* Test Item Value Reference Range Interpretation Comments Sodium Level (test code = 2951-2) 143 136-145 [facility] Centererum or plasma potassium measurement (moles/volume)2020-06-10 05:35:00* Test Item Value Reference Range Interpretation Comments Potassium Level (test code = 2823-3) 3.4 3.5-5.1 [facility]ererum or plasma chloride measurement (moles/volume)2020-06-10 05:35:00* Test Item Value Reference Range Interpretation Comments Chloride Level (test code = 2075-0) 110 98-107 [facility] Centererum or plasma carbon dioxide, total measurement (moles/volume)2020-06-10 05:35:00* Test Item Value Reference Range Interpretation Comments Carbon Dioxide Level (test code = 2028-9) 21 22-29 [facility] [facility] [id number] 05:35:00* Test Item Value Reference Range Interpretation Comments Anion Gap (test code = 57042-0) 15.4 8-16 [facility] urea nitrogen measurement (mass/volume)2020-06-10 05:35:00* Test Item Value Reference Range Interpretation Comments Blood Urea Nitrogen (test code = 3094-0) 7 7-26 [facility] creatinine measurement (mass/volume)2020-06-10 05:35:00* Test Item Value Reference Range Interpretation Comments Creatinine (test code = 2160-0) 1.01 0.72-1.25 [facility] urea nitrogen/creatinine mass xqjyo5276-98-90 05:35:00* Test Item Value Reference Range Interpretation Comments BUN/Creatinine Ratio (test code = 3097-3) 7 6-25 [facility] HospitalEstimated glomerular filtration rate (GFR) svfiajujqlyxb7025-85-09 05:35:00* Test Item Value Reference Range Interpretation Comments Estimat Glomerular Filtration Rate (test code = 720043224) > 60 >60 Ranges were taken from the National Kidney Disease Education Program and the [facility] literature.Reference ranges:60 or greater: Pbcvxo92-54 ( for 3 consecutive months): Chronic kidney disease 15 or less: Kidney failureAudie L. Murphy Memorial VA HospitalGlucose bqwdylnflzs9430-01-12 05:35:00* Test Item Value Reference Range Interpretation Comments Glucose Level (test code = GME7849) 85 74-118 [facility] calcium measurement (mass/volume)2020-06-10 05:35:00* Test Item Value Reference Range Interpretation Comments Calcium Level (test code = 06155-3) 8.0 8.4-10.2 [facility] HospitalUrine color pyoicchrzfttz5541-89-73 06:45:00* Test Item Value Reference Range Interpretation Comments Urine Color (test code = 5778-6) YELLOW YELLOW [facility] HospitalUrine kpkzxgq4468-36-52 06:45:00* Test Item Value Reference Range Interpretation Comments Urine Clarity (test code = 67360-5) CLEAR CLEAR [facility] Centerpecific gravity of Urine by Test strip 2020-06-09 06:45:00* Test Item Value Reference Range Interpretation Comments Urine Specific [place] (test code = 5811-5) 1.015 1.010-1.02 5 [facility] HospitalUrine pH measurement by automated test stako8206-64-62 06:45:00* Test Item Value Reference Range Interpretation Comments Urine pH (test code = 43271-0) 7 5-7 [facility] HospitalUrine leukocyte esterase detection by vvzwqzfv4893-51-57 06:45:00* Test Item Value Reference Range Interpretation Comments Urine Leukocyte Esterase (test code = 5799-2) NEGATIVE NEGATIVE [facility] HospitalUrine nitrite vxcbdyjip7986-44-58 06:45:00* Test Item Value Reference Range Interpretation Comments Urine Nitrite (test code = 49013-3) NEGATIVE NEGATIVE [facility] HospitalUrine protein measurement by test strip (mass/volume)2020-06-09 06:45:00* Test Item Value Reference Range Interpretation Comments Urine Protein (test code = 5804-0) NEGATIVE NEGATIVE [facility] HospitalUrine glucose jcgrluwgl2297-61-80 06:45:00* Test Item Value Reference Range Interpretation Comments Urine Glucose (UA) (test code = 2349-9) NEGATIVE NEGATIVE [facility] HospitalUrine ketones detection by automated test lfodu2651-69-88 06:45:00* Test Item Value Reference Range Interpretation Comments Urine Ketones (test code = 33670-3) NEGATIVE NEGATIVE [facility] HospitalUrine urobilinogen measurement by test strip (mass/volume)2020-06-09 06:45:00* Test Item Value Reference Range Interpretation Comments Urine Urobilinogen (test code = 98276-9) 0.2 0.2-1 [facility] HospitalUrine total bilirubin measurement (mass/volume)2020-06-09 06:45:00* Test Item Value Reference Range Interpretation Comments Urine Bilirubin (test code = 1978-6) NEGATIVE NEGATIVE [facility] HospitalUrine erythrocytes ugwpzemuk5029-98-24 06:45:00* Test Item Value Reference Range Interpretation Comments Urine Blood (test code = 95949-4) TRACE NEGATIVE [facility] HospitalAutomated urine sediment leukocyte count by microscopy (number/high power field)2020-06-09 06:45:00* Test Item Value Reference Range Interpretation Comments Urine WBC (test code = 5821-4) 0-5 0-5 [facility] HospitalErythrocytes detection in urine sediment by light hbmzmkvttf9033-10-17 06:45:00* Test Item Value Reference Range Interpretation Comments Urine RBC (test code = 48248-6) NONE 0-5 [facility] HospitalBacteria detection in urine sediment by light hyiuoesowk4652-29-12 06:45:00* Test Item Value Reference Range Interpretation Comments Urine Bacteria (test code = 93284-0) RARE NONE [facility] HospitalEpithelial cells detection in urine sediment by light elirsbvlji0339-45-87 06:45:00* Test Item Value Reference Range Interpretation Comments Urine Epithelial Cells (test code = 67905-7) RARE NONE [facility] total bilirubin measurement (mass/volume)2020-06-09 00:10:00* Test Item Value Reference Range Interpretation Comments Total Bilirubin (test code = 1975-2) 0.4 0.2-1.2 [facility] HospitalFluoroscopic procedure less than one hour cpkmmgbl8354-57-29 00:10:00* Test Item Value Reference Range Interpretation Comments Aspartate Amino Transf (AST/SGOT) (test code = Aspartate Amino Transf (AST/SGOT)) 12 5-34 [facility] alanine aminotransferase measurement (enzymatic activity/volume)2020-06-09 00:10:00* Test Item Value Reference Range Interpretation Comments Alanine Aminotransferase (ALT/SGPT) (test code = 1742-6) 11 0-55 [facility] protein measurement (mass/volume)2020-06-09 00:10:00* Test Item Value Reference Range Interpretation Comments Total Protein (test code = 2885-2) 5.7 6.5-8.1 [facility] albumin measurement (mass/volume)2020-06-09 00:10:00* Test Item Value Reference Range Interpretation Comments Albumin (test code = 1751-7) 3.5 3.5-5.0 [facility] HospitalPlasma globulin measurement (mass/volume) 2020-06-09 00:10:00* Test Item Value Reference Range Interpretation Comments Globulin (test code = 93265-1) 2.2 2.3-3.5 [facility] albumin/globulin mass jucxf6587-56-69 00:10:00* Test Item Value Reference Range Interpretation Comments Albumin/Globulin Ratio (test code = 1759-0) 1.6 0.8-2.0 [facility] alkaline phosphatase measurement (enzymatic activity/volume)2020-06-09 00:10:00* Test Item Value Reference Range Interpretation Comments Alkaline Phosphatase (test code = 6768-6) 51 40-150 [facility] amylase measurement (enzymatic activity/volume)2020-06-09 00:10:00* Test Item Value Reference Range Interpretation Comments Amylase Level (test code = 1798-8) 33 25-125 [facility] plasma lipase measurement (enzymatic activity/volume)2020-06-09 00:10:00* Test Item Value Reference Range Interpretation Comments Lipase (test code = 3040-3) 15 [facility] HospitalFree thyroxine cwmmt0751-93-56 00:10:00* Test Item Value Reference Range Interpretation Comments Free Thyroxine Index (test code = 67842-5) 2.7307 1.4-3.8 [facility] plasma thyroxine (T4) measurement (mass/volume)2020-06-09 00:10:00* Test Item Value Reference Range Interpretation Comments Thyroxine (T4) (test code = 3026-2) 7.82 4.5-10.9 [facility] plasma triiodothyronine resin uptake (T3RU)2020-06-09 00:10:00* Test Item Value Reference Range Interpretation Comments Triiodothyronine (T3) Uptake (test code = 3050-2) 34.92 22.5 -37.0 [facility] thyrotropin measurement by detection limit <= 0.005 miu/l (units/volume)2020-06-09 00:10:00* Test Item Value Reference Range Interpretation Comments Thyroid Stimulating Hormone (TSH) (test code = 38371-3) 1.865 0.350-4.940 [facility] amylase measurement (enzymatic activity/volume)2020-06-09 00:10:00* Test Item Value Reference Range Interpretation Comments Amylase Level (test code = 1798-8) 33 25-125 [facility] plasma lipase measurement (enzymatic activity/volume)2020-06-09 00:10:00* Test Item Value Reference Range Interpretation Comments Lipase (test code = 3040-3) 15 [facility] HospitalFree thyroxine oomqq5973-95-92 00:10:00* Test Item Value Reference Range Interpretation Comments Free Thyroxine Index (test code = 65705-4) 2.7307 1.4-3.8 [facility] plasma thyroxine (T4) measurement (mass/volume)2020-06-09 00:10:00* Test Item Value Reference Range Interpretation Comments Thyroxine (T4) (test code = 3026-2) 7.82 4.5-10.9 [facility] plasma triiodothyronine resin uptake (T3RU)2020-06-09 00:10:00* Test Item Value Reference Range Interpretation Comments Triiodothyronine (T3) Uptake (test code = 3050-2) 34.92 22.5 -37.0 [facility] thyrotropin measurement by detection limit <= 0.005 miu/l (units/volume)2020-06-09 00:10:00* Test Item Value Reference Range Interpretation Comments Thyroid Stimulating Hormone (TSH) (test code = 59283-0) 1.865 0.350-4.940 [facility] HospitalFluoroscopic procedure less than one hour emxzznif9724-35-83 22:05:00* Test Item Value Reference Range Interpretation Comments Coronavirus (PCR) (test code = Coronavirus (PCR)) NOT DETECTED NOTD ETECTED SARS-CoV-2 PCRHologic Aptima SARS-CoV-2 assay is a nucleic amplification test in tended for the qualitative detection of RNA from SARS-CoV-2 from nasopharyngeal ([employer]) specimens. It is used under Emergency Use [...] repr at testing oc clinically indicated.Tesing performed by:[facility] Laboratory Services[address] [place] [id number], Cindy garcia MD, PhDAudie L. Murphy Memorial VA HospitalCXR 2 VIEW - HNFR2643-94-41 19:03:00 [place] [address] Patient Name: NOEMY ARGUETA MR #: [id number] : 1935 Age/Sex: 84/M Req #: [id number] Adm Physician: Ordered by: RACQUEL DELGADO MD Report #: [id number] Location: [facility] Room/Bed: Procedure: [id number] HOPD/CXR 2 VIE W - HOPD Exam [...] 7:09 PM Dictated By: RILEY CERVANTES MD [facility] Signed By: RILEY CERVANTES MD on 06/08/201908 Transcribed By: APOORVA on 06/08/201908 COPY TO: RACQUEL DELGADO MD CT ABDOMEN/PELVIS [id number] 17:22:00 [place] [address] Patient Name: NOEMY ARGUETA MR #: [id number] : 1935 Age/Sex: 84/M Req #: [id number] [facility] Physician: Ordered by: PER AU MD Report #: [id number] Location: ER Room/Bed: Procedure: [id number] CT/CT ABDOMEN/P JASON MESA Exam Date: 05/20/20 [...] in diameter with scattered calcifications PELVIS FINDINGS: [place] el: Stomach: Normal. Small Bowel: Enteric contrast [...] COPY TO: NATHALIE AU MD Urine color yypjhxrnpwbpz9960-31-94 16:58:00* Test Item Value Reference Range Interpretation Comments Urine Color (test code = 5778-6) YELLOW YELLOW [facility] yjmsuay0232-51-06 16:58:00* Test Item Value Reference Range Interpretation Comments Urine Clarity (test code = 90112-0) SL CLOUDY CLEAR [facility] Centerpecific gravity of Urine by Test strip 2020-05-20 16:58:00* Test Item Value Reference Range Interpretation Comments Urine Specific [place] (test code = 5811-5) 1.010 1.010-1.02 5 [facility] HospitalUrine pH measurement by automated test nnysk9027-02-86 16:58:00* Test Item Value Reference Range Interpretation Comments Urine pH (test code = 59606-6) 6 5-7 [facility] HospitalUrine leukocyte esterase detection by xygrgios2796-74-73 16:58:00* Test Item Value Reference Range Interpretation Comments Urine Leukocyte Esterase (test code = 5799-2) NEGATIVE NEGATIVE [facility] HospitalUrine nitrite ztpuhfshc9808-83-39 16:58:00* Test Item Value Reference Range Interpretation Comments Urine Nitrite (test code = 18788-7) NEGATIVE NEGATIVE [facility] HospitalUrine protein measurement by test strip (mass/volume)2020-05-20 16:58:00* Test Item Value Reference Range Interpretation Comments Urine Protein (test code = 5804-0) NEGATIVE NEGATIVE [facility] HospitalUrine glucose dhlflyxkt8553-00-78 16:58:00* Test Item Value Reference Range Interpretation Comments Urine Glucose (UA) (test code = 2349-9) NEGATIVE NEGATIVE [facility] HospitalUrine ketones detection by automated test rioja7474-36-38 16:58:00* Test Item Value Reference Range Interpretation Comments Urine Ketones (test code = 82003-5) NEGATIVE NEGATIVE [facility] HospitalUrine urobilinogen measurement by test strip (mass/volume)2020-05-20 16:58:00* Test Item Value Reference Range Interpretation Comments Urine Urobilinogen (test code = 48368-5) 0.2 0.2-1 [facility] HospitalUrine total bilirubin measurement (mass/volume)2020-05-20 16:58:00* Test Item Value Reference Range Interpretation Comments Urine Bilirubin (test code = 1978-6) NEGATIVE NEGATIVE [facility] HospitalUrine erythrocytes ifdtygnpg4921-14-46 16:58:00* Test Item Value Reference Range Interpretation Comments Urine Blood (test code = 33995-0) NEGATIVE NEGATIVE [facility] HospitalAutomated urine sediment leukocyte count by microscopy (number/high power field)2020-05-20 16:58:00* Test Item Value Reference Range Interpretation Comments Urine WBC (test code = 5821-4) NONE 0-5 [facility] HospitalErythrocytes detection in urine sediment by light qumxpnovlo4053-70-19 16:58:00* Test Item Value Reference Range Interpretation Comments Urine RBC (test code = 37942-0) NONE 0-5 [facility] HospitalBacteria detection in urine sediment by light fehdkvjxdy1603-50-81 16:58:00* Test Item Value Reference Range Interpretation Comments Urine Bacteria (test code = 76039-8) FEW NONE [facility] HospitalEpithelial cells detection in urine sediment by light gjgpypijlq0502-53-91 16:58:00* Test Item Value Reference Range Interpretation Comments Urine Epithelial Cells (test code = 99638-1) RARE NONE [facility] HospitalUrine color edpzsyyyqmnev4464-19-83 16:58:00* Test Item Value Reference Range Interpretation Comments Urine Color (test code = 5778-6) YELLOW YELLOW [facility] HospitalUrine laibddz2721-86-61 16:58:00* Test Item Value Reference Range Interpretation Comments Urine Clarity (test code = 23238-5) SL CLOUDY CLEAR [facility] Centerpecific gravity of Urine by Test strip 2020-05-20 16:58:00* Test Item Value Reference Range Interpretation Comments Urine Specific [place] (test code = 5811-5) 1.010 1.010-1.02 5 [facility] HospitalUrine pH measurement by automated test ffbiq0860-70-93 16:58:00* Test Item Value Reference Range Interpretation Comments Urine pH (test code = 55465-9) 6 5-7 [facility] HospitalUrine leukocyte esterase detection by yyzuzirz6067-77-78 16:58:00* Test Item Value Reference Range Interpretation Comments Urine Leukocyte Esterase (test code = 5799-2) NEGATIVE NEGATIVE [facility] HospitalUrine nitrite zeelgmwtt2659-49-72 16:58:00* Test Item Value Reference Range Interpretation Comments Urine Nitrite (test code = 71483-2) NEGATIVE NEGATIVE [facility] HospitalUrine protein measurement by test strip (mass/volume)2020-05-20 16:58:00* Test Item Value Reference Range Interpretation Comments Urine Protein (test code = 5804-0) NEGATIVE NEGATIVE [facility] HospitalUrine glucose auyddhekg1416-91-75 16:58:00* Test Item Value Reference Range Interpretation Comments Urine Glucose (UA) (test code = 2349-9) NEGATIVE NEGATIVE [facility] HospitalUrine ketones detection by automated test jriqj5281-98-20 16:58:00* Test Item Value Reference Range Interpretation Comments Urine Ketones (test code = 70257-6) NEGATIVE NEGATIVE [facility] HospitalUrine urobilinogen measurement by test strip (mass/volume)2020-05-20 16:58:00* Test Item Value Reference Range Interpretation Comments Urine Urobilinogen (test code = 57522-9) 0.2 0.2-1 [facility] HospitalUrine total bilirubin measurement (mass/volume)2020-05-20 16:58:00* Test Item Value Reference Range Interpretation Comments Urine Bilirubin (test code = 1978-6) NEGATIVE NEGATIVE [facility] HospitalUrine erythrocytes xeisydcxk4498-34-31 16:58:00* Test Item Value Reference Range Interpretation Comments Urine Blood (test code = 60311-0) NEGATIVE NEGATIVE [facility] HospitalAutomated urine sediment leukocyte count by microscopy (number/high power field)2020-05-20 16:58:00* Test Item Value Reference Range Interpretation Comments Urine WBC (test code = 5821-4) NONE 0-5 [facility] HospitalErythrocytes detection in urine sediment by light bjsbviaxkc0073-32-25 16:58:00* Test Item Value Reference Range Interpretation Comments Urine RBC (test code = 70377-8) NONE 0-5 [facility] HospitalBacteria detection in urine sediment by light yhvbeqyqrm3557-31-05 16:58:00* Test Item Value Reference Range Interpretation Comments Urine Bacteria (test code = 20741-1) FEW NONE [facility] HospitalEpithelial cells detection in urine sediment by light scizztezam3952-07-43 16:58:00* Test Item Value Reference Range Interpretation Comments Urine Epithelial Cells (test code = 55929-4) RARE NONE [facility] HospitalBlood leukocytes automated count (number/volume)2020-05-20 15:36:00* Test Item Value Reference Range Interpretation Comments White Blood Count (test code = 6690-2) 8.36 4.8-10.8 [facility] HospitalBlst. [facility] erythrocytes automated count (number/volume)2020-05-20 15:36:00* Test Item Value Reference Range Interpretation Comments Red Blood Count (test code = 789-8) 5.04 4.3-5.7 [facility] HospitalBlood hemoglobin measurement (moles/volume)2020-05-20 15:36:00* Test Item Value Reference Range Interpretation Comments Hemoglobin (test code = 53076-2) 15.1 14.0-18.0 [facility] HospitalAutomated blood hematocrit (volume fraction)2020-05-20 15:36:00* Test Item Value Reference Range Interpretation Comments Hematocrit (test code = 4544-3) 45.8 38.2-49.6 [facility] HospitalAutomated erythrocyte mean corpuscular panydw0168-76-79 15:36:00* Test Item Value Reference Range Interpretation Comments Mean Corpuscular Volume (test code = 787-2) 90.9 81-99 [facility] HospitalAutomated erythrocyte mean corpuscular hemoglobin (mass per erythrocyte)2020-05-20 15:36:00* Test Item Value Reference Range Interpretation Comments Mean Corpuscular Hemoglobin (test code = 785-6) 30.0 28-32 [facility] HospitalAutomated erythrocyte mean corpuscular hemoglobin concentration measurement (mass/volume)2020-05-20 15:36:00* Test Item Value Reference Range Interpretation Comments Mean Corpuscular Hemoglobin Concent (test code = 786-4) 33.0 31-35 [facility] HospitalRDW MsuFx-Vsy6277-58-21 15:36:00* Test Item Value Reference Range Interpretation Comments Red Cell Distribution Width (test code = 52577-8) 14.0 11.7 -14.4 [facility] HospitalAutomated blood platelet count (count/volume)2020-05-20 15:36:00* Test Item Value Reference Range Interpretation Comments Platelet Count (test code = 777-3) 187 140-360 [facility] HospitalAutomated blood segmented neutrophil count as percentage of total iyyfpnmotv8498-03-27 15:36:00* Test Item Value Reference Range Interpretation Comments Neutrophils (%) (Auto) (test code = 32576-8) 65.9 38.7-80.0 [facility] HospitalAutomated blood lymphocyte count as percentage ot total veejyrwaid1331-17-43 15:36:00* Test Item Value Reference Range Interpretation Comments Lymphocytes (%) (Auto) (test code = 736-9) 24.4 18.0-39.1 [facility] HospitalAutomated blood monocyte count as percentage of total npoybiyztu6439-70-59 15:36:00* Test Item Value Reference Range Interpretation Comments Monocytes (%) (Auto) (test code = 5905-5) 8.1 4.4-11.3 [facility] HospitalAutomated blood eosinophil count as percentage of total pmdkciogcr4133-76-66 15:36:00* Test Item Value Reference Range Interpretation Comments Eosinophils (%) (Auto) (test code = 713-8) 0.6 0.0-6.0 [facility] HospitalAutomated blood basophil count as percentage of total zeioveilrw3081-43-46 15:36:00* Test Item Value Reference Range Interpretation Comments Basophils (%) (Auto) (test code = 706-2) 0.6 0.0-1.0 [facility] HospitalFluoroscopic procedure less than one hour wxiwzytr4709-22-47 15:36:00* Test Item Value Reference Range Interpretation Comments IM GRANULOCYTES % (test code = IM GRANULOCYTES %) 0.4 0.0- 1.0 [facility] HospitalAutomated blood neutrophil count 2020-05-20 15:36:00* Test Item Value Reference Range Interpretation Comments Neutrophils # (Auto) (test code = 751-8) 5.5 2.1-6.9 [facility] HospitalBlood lymphocytes count (number/volume) 2020-05-20 15:36:00* Test Item Value Reference Range Interpretation Comments Lymphocytes # (Auto) (test code = 28235-0) 2.0 1.0-3.2 [facility] HospitalBlood monocytes automated count (number/volume)2020-05-20 15:36:00* Test Item Value Reference Range Interpretation Comments Monocytes # (Auto) (test code = 742-7) 0.7 0.2-0.8 [facility] HospitalAutomated blood eosinophil count 2020-05-20 15:36:00* Test Item Value Reference Range Interpretation Comments Eosinophils # (Auto) (test code = 711-2) 0.1 0.0-0.4 [facility] HospitalAutomated blood basophil count (count/volume)2020-05-20 15:36:00* Test Item Value Reference Range Interpretation Comments Basophils # (Auto) (test code = 704-7) 0.1 0.0-0.1 [facility] HospitalFluoroscopic procedure less than one hour pgsocgpd6224-87-07 15:36:00* Test Item Value Reference Range Interpretation Comments Absolute Immature Granulocyte (auto (faye t code = Absolute Immature Granulocyte (auto) 0.03 0-0.1 [facility] sodium measurement (moles/volume)2020-05-20 15:36:00* Test Item Value Reference Range Interpretation Comments Sodium Level (test code = 2951-2) 140 136-145 [facility]ere[facility] plasma potassium measurement (moles/volume)2020-05-20 15:36:00* Test Item Value Reference Range Interpretation Comments Potassium Level (test code = 2823-3) 4.1 3.5-5.1 [facility]ere[facility] plasma chloride measurement (moles/volume)2020-05-20 15:36:00* Test Item Value Reference Range Interpretation Comments Chloride Level (test code = 2075-0) 104 98-107 [facility]ererum or plasma carbon dioxide, total measurement (moles/volume)2020-05-20 15:36:00* Test Item Value Reference Range Interpretation Comments Carbon Dioxide Level (test code = 2028-9) 23 22-29 [facility]ere[facility] or plasma anion ems6202-74-31 15:36:00* Test Item Value Reference Range Interpretation Comments Anion Gap (test code = 00039-5) 17.1 8-16 [facility] plasma urea nitrogen measurement (mass/volume)2020-05-20 15:36:00* Test Item Value Reference Range Interpretation Comments Blood Urea Nitrogen (test code = 3094-0) 12 7-26 [facility]ere[facility] plasma creatinine measurement (mass/volume)2020-05-20 15:36:00* Test Item Value Reference Range Interpretation Comments Creatinine (test code = 2160-0) 1.31 0.72-1.25 [facility]ere[facility] plasma urea nitrogen/creatinine mass tlknd9189-52-60 15:36:00* Test Item Value Reference Range Interpretation Comments BUN/Creatinine Ratio (test code = 3097-3) 9 6-25 [facility] HospitalEstimated glomerular filtration rate (GFR) ueolzgqudcryg5972-22-94 15:36:00* Test Item Value Reference Range Interpretation Comments Estimat Glomerular Filtration Rate (test code = 093274267) 52 >60 Ranges were taken from the National Kidney Disease Education Program and the [facility] literature.Reference ranges:60 or greater: Masrac75-75 ( for 3 consecutive months): Chronic kidney disease 15 or less: Kidney failureAudie L. Murphy Memorial VA HospitalGlucose dccaxoggxnf2299-69-07 15:36:00* Test Item Value Reference Range Interpretation Comments Glucose Level (test code = IOI8259) 120 74-118 [facility]ere[facility] or plasma calcium measurement (mass/volume)2020-05-20 15:36:00* Test Item Value Reference Range Interpretation Comments Calcium Level (test code = 15938-9) 9.6 8.4-10.2 [facility]ererum or plasma magnesium measurement (mass/volume)2020-05-20 15:36:00* Test Item Value Reference Range Interpretation Comments Magnesium Level (test code = 64671-7) 1.5 1.3-2.1 [facility]ererum or plasma total bilirubin measurement (mass/volume)2020-05-20 15:36:00* Test Item Value Reference Range Interpretation Comments Total Bilirubin (test code = 1975-2) 0.5 0.2-1.2 [facility] HospitalFluoroscopic procedure less than one hour adxaswml8214-92-10 15:36:00* Test Item Value Reference Range Interpretation Comments Aspartate Amino Transf (AST/SGOT) (test code = Aspartate Amino Transf (AST/SGOT)) 15 5-34 [facility] Centererum or plasma alanine aminotransferase measurement (enzymatic activity/volume)2020-05-20 15:36:00* Test Item Value Reference Range Interpretation Comments Alanine Aminotransferase (ALT/SGPT) (test code = 1742-6) 10 0-55 [facility]ererum or plasma protein measurement (mass/volume)2020-05-20 15:36:00* Test Item Value Reference Range Interpretation Comments Total Protein (test code = 2885-2) 7.6 6.5-8.1 [facility]ererum or plasma albumin measurement (mass/volume)2020-05-20 15:36:00* Test Item Value Reference Range Interpretation Comments Albumin (test code = 1751-7) 4.0 3.5-5.0 [facility] HospitalPlasma globulin measurement (mass/volume) 2020-05-20 15:36:00* Test Item Value Reference Range Interpretation Comments Globulin (test code = 25683-8) 3.6 2.3-3.5 [facility]ererum or plasma albumin/globulin mass eulcs7970-87-72 15:36:00* Test Item Value Reference Range Interpretation Comments Albumin/Globulin Ratio (test code = 1759-0) 1.1 0.8-2.0 [facility]ererum or plasma alkaline phosphatase measurement (enzymatic activity/volume)2020-05-20 15:36:00* Test Item Value Reference Range Interpretation Comments Alkaline Phosphatase (test code = 6768-6) 54 40-150 [facility] HospitalBlood leukocytes automated count (number/volume)2020-05-20 15:36:00* Test Item Value Reference Range Interpretation Comments White Blood Count (test code = 6690-2) 8.36 4.8-10.8 [facility] HospitalBlood erythrocytes automated count (number/volume)2020-05-20 15:36:00* Test Item Value Reference Range Interpretation Comments Red Blood Count (test code = 789-8) 5.04 4.3-5.7 [facility] HospitalBlood hemoglobin measurement (moles/volume)2020-05-20 15:36:00* Test Item Value Reference Range Interpretation Comments Hemoglobin (test code = 12859-4) 15.1 14.0-18.0 [facility] HospitalAutomated blood hematocrit (volume fraction)2020-05-20 15:36:00* Test Item Value Reference Range Interpretation Comments Hematocrit (test code = 4544-3) 45.8 38.2-49.6 [facility] HospitalAutomated erythrocyte mean corpuscular fphidi0775-96-57 15:36:00* Test Item Value Reference Range Interpretation Comments Mean Corpuscular Volume (test code = 787-2) 90.9 81-99 [facility] HospitalAutomated erythrocyte mean corpuscular hemoglobin (mass per erythrocyte)2020-05-20 15:36:00* Test Item Value Reference Range Interpretation Comments Mean Corpuscular Hemoglobin (test code = 785-6) 30.0 28-32 [facility] HospitalAutomated erythrocyte mean corpuscular hemoglobin concentration measurement (mass/volume)2020-05-20 15:36:00* Test Item Value Reference Range Interpretation Comments Mean Corpuscular Hemoglobin Concent (test code = 786-4) 33.0 31-35 [facility] HospitalRDW YckFc-Onc4811-69-21 15:36:00* Test Item Value Reference Range Interpretation Comments Red Cell Distribution Width (test code = 92510-5) 14.0 11.7 -14.4 [facility] HospitalAutomated blood platelet count (count/volume)2020-05-20 15:36:00* Test Item Value Reference Range Interpretation Comments Platelet Count (test code = 777-3) 187 140-360 [facility] HospitalAutomated blood segmented neutrophil count as percentage of total cmtouznuqu9370-38-75 15:36:00* Test Item Value Reference Range Interpretation Comments Neutrophils (%) (Auto) (test code = 22093-5) 65.9 38.7-80.0 [facility] HospitalAutomated blood lymphocyte count as percentage ot total bmeqtkkcfv8109-15-49 15:36:00* Test Item Value Reference Range Interpretation Comments Lymphocytes (%) (Auto) (test code = 736-9) 24.4 18.0-39.1 [facility] HospitalAutomated blood monocyte count as percentage of total jhgxfijfna5067-70-08 15:36:00* Test Item Value Reference Range Interpretation Comments Monocytes (%) (Auto) (test code = 5905-5) 8.1 4.4-11.3 [facility] HospitalAutomated blood eosinophil count as percentage of total ouasiimkat6285-71-97 15:36:00* Test Item Value Reference Range Interpretation Comments Eosinophils (%) (Auto) (test code = 713-8) 0.6 0.0-6.0 [facility] HospitalAutomated blood basophil count as percentage of total tvmtpjonmj5611-80-10 15:36:00* Test Item Value Reference Range Interpretation Comments Basophils (%) (Auto) (test code = 706-2) 0.6 0.0-1.0 [facility] HospitalFluoroscopic procedure less than one hour qidxrbil0673-42-30 15:36:00* Test Item Value Reference Range Interpretation Comments IM GRANULOCYTES % (test code = IM GRANULOCYTES %) 0.4 0.0- 1.0 [facility] HospitalAutomated blood neutrophil count 2020-05-20 15:36:00* Test Item Value Reference Range Interpretation Comments Neutrophils # (Auto) (test code = 751-8) 5.5 2.1-6.9 [facility] HospitalBlood lymphocytes count (number/volume) 2020-05-20 15:36:00* Test Item Value Reference Range Interpretation Comments Lymphocytes # (Auto) (test code = 10129-5) 2.0 1.0-3.2 [facility] HospitalBlood monocytes automated count (number/volume)2020-05-20 15:36:00* Test Item Value Reference Range Interpretation Comments Monocytes # (Auto) (test code = 742-7) 0.7 0.2-0.8 [facility] HospitalAutomated blood eosinophil count 2020-05-20 15:36:00* Test Item Value Reference Range Interpretation Comments Eosinophils # (Auto) (test code = 711-2) 0.1 0.0-0.4 [facility] HospitalAutomated blood basophil count (count/volume)2020-05-20 15:36:00* Test Item Value Reference Range Interpretation Comments Basophils # (Auto) (test code = 704-7) 0.1 0.0-0.1 [facility] HospitalFluoroscopic procedure less than one hour tqvivuau1684-53-14 15:36:00* Test Item Value Reference Range Interpretation Comments Absolute Immature Granulocyte (auto (faye t code = Absolute Immature Granulocyte (auto) 0.03 0-0.1 [facility]ererum or plasma sodium measurement (moles/volume)2020-05-20 15:36:00* Test Item Value Reference Range Interpretation Comments Sodium Level (test code = 2951-2) 140 136-145 [facility]ererum or plasma potassium measurement (moles/volume)2020-05-20 15:36:00* Test Item Value Reference Range Interpretation Comments Potassium Level (test code = 2823-3) 4.1 3.5-5.1 [facility]ererum or plasma chloride measurement (moles/volume)2020-05-20 15:36:00* Test Item Value Reference Range Interpretation Comments Chloride Level (test code = 2075-0) 104 98-107 [facility]ererum or plasma carbon dioxide, total measurement (moles/volume)2020-05-20 15:36:00* Test Item Value Reference Range Interpretation Comments Carbon Dioxide Level (test code = 2028-9) 23 22-29 [facility]ererum or plasma anion jjq3747-76-38 15:36:00* Test Item Value Reference Range Interpretation Comments Anion Gap (test code = 07382-1) 17.1 8-16 [facility]ererum or plasma urea nitrogen measurement (mass/volume)2020-05-20 15:36:00* Test Item Value Reference Range Interpretation Comments Blood Urea Nitrogen (test code = 3094-0) 12 7-26 [facility]ererum or plasma creatinine measurement (mass/volume)2020-05-20 15:36:00* Test Item Value Reference Range Interpretation Comments Creatinine (test code = 2160-0) 1.31 0.72-1.25 [facility]ererum or plasma urea nitrogen/creatinine mass qujzl0974-05-72 15:36:00* Test Item Value Reference Range Interpretation Comments BUN/Creatinine Ratio (test code = 3097-3) 9 - [facility] HospitalEstimated glomerular filtration rate (GFR) mtzuajegerman7477-01-83 15:36:00* Test Item Value Reference Range Interpretation Comments Estimat Glomerular Filtration Rate (test code = 352495222) 52 >60 Ranges were taken from the National Kidney Disease Education Program and the [facility] Kidney Foundation literature.Reference ranges:60 or greater: Wnjpmo65-54 ( for 3 consecutive months): Chronic kidney disease 15 or less: Kidney failureAudie L. Murphy Memorial VA HospitalGlucose kjzywhzbwkx4617-90-98 15:36:00* Test Item Value Reference Range Interpretation Comments Glucose Level (test code = UQO3288) 120 74-118 [facility]ererum or plasma calcium measurement (mass/volume)2020-05-20 15:36:00* Test Item Value Reference Range Interpretation Comments Calcium Level (test code = 29898-2) 9.6 8.4-10.2 [facility]ererum or plasma magnesium measurement (mass/volume)2020-05-20 15:36:00* Test Item Value Reference Range Interpretation Comments Magnesium Level (test code = 75336-8) 1.5 1.3-2.1 [facility]ererum or plasma total bilirubin measurement (mass/volume)2020-05-20 15:36:00* Test Item Value Reference Range Interpretation Comments Total Bilirubin (test code = 1975-2) 0.5 0.2-1.2 [facility] HospitalFluoroscopic procedure less than one hour pbkitoch7987-89-69 15:36:00* Test Item Value Reference Range Interpretation Comments Aspartate Amino Transf (AST/SGOT) (test code = Aspartate Amino Transf (AST/SGOT)) 15 5-34 [facility]ererum or plasma alanine aminotransferase measurement (enzymatic activity/volume)2020-05-20 15:36:00* Test Item Value Reference Range Interpretation Comments Alanine Aminotransferase (ALT/SGPT) (test code = 1742-6) 10 0-55 [facility]ererum or plasma protein measurement (mass/volume)2020-05-20 15:36:00* Test Item Value Reference Range Interpretation Comments Total Protein (test code = 2885-2) 7.6 6.5-8.1 [facility]ererum or plasma albumin measurement (mass/volume)2020-05-20 15:36:00* Test Item Value Reference Range Interpretation Comments Albumin (test code = 1751-7) 4.0 3.5-5.0 [facility] HospitalPlasma globulin measurement (mass/volume) 2020-05-20 15:36:00* Test Item Value Reference Range Interpretation Comments Globulin (test code = 04050-5) 3.6 2.3-3.5 [facility]ererum or plasma albumin/globulin mass yqyfz0664-80-00 15:36:00* Test Item Value Reference Range Interpretation Comments Albumin/Globulin Ratio (test code = 1759-0) 1.1 0.8-2.0 [facility]ererum or plasma alkaline phosphatase measurement (enzymatic activity/volume)2020-05-20 15:36:00* Test Item Value Reference Range Interpretation Comments Alkaline Phosphatase (test code = 6768-6) 54 40-150 [facility]ererum or plasma magnesium measurement (mass/volume)2020-05-20 15:36:00* Test Item Value Reference Range Interpretation Comments Magnesium Level (test code = 73129-5) 1.5 1.3-2.1 [facility]ererum or plasma magnesium measurement (mass/volume)2020-05-20 15:36:00* Test Item Value Reference Range Interpretation Comments Magnesium Level (test code = 37032-4) 1.5 1.3-2.1 [facility]IS K9212-60-05 19:36:00 [facility] [address] [address] Patient Name: NOEMY ARGUETA MR #: [id number] : 1935 Age/Sex: 84/M Req #: [id number] Adm Physician: Ordered by: NIECY ARZOLA MD Rep ort #: [id number] Location: CT Room/B ed: Procedure: [id number] CT/CT ABDOMEN/ PELVIS W Exam Date: 05/12/20 [...] set by the Radiation Protocol Co ittee ([facility]). Dose modulation, iterative reconstruction, and/or weight [...] TO: NIECY ARZOLA MD ABDOMEN-1VIEW (KUB)2020-05-11 18:06:00 [address] [place] [address] Patient Name: NOEMY ARGUETA MR #: [id number] : 1935 Age/Sex: 84/M Req #: [id number] Adm Physician: Ordered by: KLAUDIA ARZOLA MD Report #: [id number] Location: [facility] Room/Bed: Procedure: [id number] DX/ABDOMEN-1VI EW (KUB) Exam Date: 05/11/20 Exam [...] MD Fluoroscopic procedure less than one hour uyihupbw0957-88-14 19:30:00* Test Item Value Reference Range Interpretation [...] under 564(g) of the ACT.Testing performed by [address] [address]OGUAudie L. [facility] HospitalFluoroscopic procedure less than one hour duration 2020-04-02 [...] under 564(g) of the ACT.Testing performed by [address], [place] [address]2020-04-02 07:07:00 [facility] [address] [address] Patient Name: NOEMY ARGUETA MR #: [id number] : 1935 Age/Sex: 84/M Req #: [id number] Adm Physician: AG JACOBSEN MD Ordered by: ANIHTA POLANCO MD, MD Report #: [id number] Location: [facility]/Bed: [address] [address] Procedure: [id number] DX/CHEST SI NGLE (PORTABLE) Exam Date: 04/02/20 [...] Kinase (test code = 2157-6) 127 30-200 [facility]ererum or plasma creatine kinase MB measurement (mass/volume)2020-04-02 07:01:00* Test Item Value Reference Range Interpretation Comments Creatine Kinase MB (test code = 11387-5) 2.00 0-5.0 [facility] HospitalTroponin I measurement by highly sensitive enzyme mgrkvapkjur1423-59-60 07:01:00* Test Item Value Reference Range Interpretation Comments Troponin I (test code = 91523-4) 0.003 0-0.300 [facility]ererum or plasma creatine kinase measurement (enzymatic activity/volume)2020-04-02 07:01:00* Test Item Value Reference Range Interpretation Comments Creatine Kinase (test code = 2157-6) 127 30-200 [facility]ererum or plasma creatine kinase MB measurement (mass/volume)2020-04-02 07:01:00* Test Item Value Reference Range Interpretation Comments Creatine Kinase MB (test code = 63486-1) 2.00 0-5.0 [facility] HospitalTroponin I measurement by highly sensitive enzyme dhperzvcskz2255-65-95 07:01:00* Test Item Value Reference Range Interpretation Comments Troponin I (test code = 91346-5) 0.003 0-0.300 [facility]ererum or plasma creatine kinase measurement (enzymatic activity/volume)2020-04-02 07:01:00* Test Item Value Reference Range Interpretation Comments Creatine Kinase (test code = 2157-6) 127 30-200 [facility]ererum or plasma creatine kinase MB measurement (mass/volume)2020-04-02 07:01:00* Test Item Value Reference Range Interpretation Comments Creatine Kinase MB (test code = 51859-7) 2.00 0-5.0 [facility] HospitalTroponin I measurement by highly sensitive enzyme dxyycarqbhn1030-75-94 07:01:00* Test Item Value Reference Range Interpretation Comments Troponin I (test code = 44277-3) 0.003 0-0.300 [facility] HospitalCT BRAIN ZT3233-05-85 11:20:00 [facility] [address] [address] Patient Name: NOEMY ARGUETA MR #: [id number] : 1935 Age/Sex: 84/M Req #: [id number] Adm Physician: Ordered by: COLLIN BRANNON, ANITHA BRANNON Report #: [id number] Location: [facility] /Bed: Procedure: [id number] CT/CT BRAIN WO Exam Date: 04/01/20 Exam [...] TO: ANITHA POLANCO CHEST SINGLE (PORTABLE)2020-04-01 11:17:00 [address] [place] [address] Patient Name: NOEMY ARGUETA MR #: [id number] : 1935 Age/Sex: 84/M Req #: [id number] Adm Physician: Ordered by: ANITHA POLANCO MD, MD Report #: [id number] Location: ER Room/Bed: Procedure: [id number] DX/CHEST SI NGLE (PORTABLE) Exam Date: 04/01/20 Exam Time: 1025 REPORT STATUS: Signed EXAMINATIO N: CHEST SINGLE (PORTABLE) INDICATION: Y ERMD ORDER [id number] Y COMPARISON: 03/13/2020 FINDINGS: AP view TUBES [...] (PT) in platelet poor plasma by coagulation jjgpe6209-19-10 10:15:00* Test Item Value Reference Range Interpretation Comments Prothrombin Time (test code = 5902-2) 14.3 11.9-14.5 [facility] HospitalINR in Platelet poor plasma by Coagulation ditba3360-92-84 10:15:00* Test Item Value Reference Range Interpretation Comments Prothromb Time International Ratio (test code = 6301-6) 1.05 Oral Anticoagulant Therapy INR Values:1. Low Intensity Therapy 1.5 - 2.02 . Moderate Intensity Therapy 2.0 - 3.03. High Intensity Therapy(1) 2.5 - 3. 54. High Intensity Therapy(2) 3.0 - 4.05. Panic Value INR > 5.0 [facility] HospitalActivated partial thromboplastin time (aPTT) in platelet poor plasma by coagulation xepjv3331-11-80 10:15:00* Test Item Value Reference Range Interpretation Comments Activated Partial Thromboplast Time (test code = 09854-6) 30.2 23.8-35.5 [facility] HospitalFluoroscopic procedure less than one hour zbyyivry4604-58-30 10:15:00* Test Item Value Reference Range Interpretation Comments Lactic Acid Level (test code = Lactic Acid Level) 1.5 0.5- 2.0 [facility] HospitalBNP Yrf-fYgr3245-54-03 10:15:00* Test Item Value Reference Range Interpretation Comments B-Type Natriuretic Peptide (test code = 21526-5) 32.1 0-100 [facility]ererum or plasma thyrotropin measurement by detection limit <= 0.005 miu/l (units/volume)2020-04-01 10:15:00* Test Item Value Reference Range Interpretation Comments Thyroid Stimulating Hormone (TSH) (test code = 91354-7) 1.327 0.350-4.940 [facility] HospitalBlood jmxibpj8890-69-77 10:15:00* Test Item Value Reference Range Interpretation Comments Blood Culture (test code = 70394444) NO GROWTH AFTER 5 DAYS, FINAL REPORT [facility] HospitalProthrombin time (PT) in platelet poor plasma by coagulation nuhdz9520-88-02 10:15:00* Test Item Value Reference Range Interpretation Comments Prothrombin Time (test code = 5902-2) 14.3 11.9-14.5 [facility] HospitalINR in Platelet poor plasma by Coagulation byyow2445-93-20 10:15:00* Test Item Value Reference Range Interpretation Comments Prothromb Time International Ratio (test code = 6301-6) 1.05 Oral Anticoagulant Therapy INR Values:1. Low Intensity Therapy 1.5 - 2.02 . Moderate Intensity Therapy 2.0 - 3.03. High Intensity Therapy(1) 2.5 - 3. 54. High Intensity Therapy(2) 3.0 - 4.05. Panic Value INR > 5.0 [facility] HospitalActivated partial thromboplastin time (aPTT) in platelet poor plasma by coagulation jovsu5232-12-06 10:15:00* Test Item Value Reference Range Interpretation Comments Activated Partial Thromboplast Time (test code = 16301-6) 30.2 23.8-35.5 [facility] HospitalFluoroscopic procedure less than one hour kihtkfda7154-18-43 10:15:00* Test Item Value Reference Range Interpretation Comments Lactic Acid Level (test code = Lactic Acid Level) 1.5 0.5- 2.0 [facility] HospitalBNP Ttw-tPsj6330-93-03 10:15:00* Test Item Value Reference Range Interpretation Comments B-Type Natriuretic Peptide (test code = 64667-4) 32.1 0-100 [facility] Centererum or plasma thyrotropin measurement by detection limit <= 0.005 miu/l (units/volume)2020-04-01 10:15:00* Test Item Value Reference Range Interpretation Comments Thyroid Stimulating Hormone (TSH) (test code = 11144-8) 1.327 0.350-4.940 [facility] wqnoxnz2097-97-26 10:15:00* Test Item Value Reference Range Interpretation Comments Blood Culture (test code = 68412274) NO GROWTH AFTER 5 DAYS, FINAL REPORT [facility] HospitalProthrombin time (PT) in platelet poor plasma by coagulation bmsck4870-46-36 10:15:00* Test Item Value Reference Range Interpretation Comments Prothrombin Time (test code = 5902-2) 14.3 11.9-14.5 [facility] HospitalINR in Platelet poor plasma by Coagulation dpilw2175-56-46 10:15:00* Test Item Value Reference Range Interpretation Comments Prothromb Time International Ratio (test code = 6301-6) 1.05 Oral Anticoagulant Therapy INR Values:1. Low Intensity Therapy 1.5 - 2.02 . Moderate Intensity Therapy 2.0 - 3.03. High Intensity Therapy(1) 2.5 - 3. 54. High Intensity Therapy(2) 3.0 - 4.05. Panic Value INR > 5.0 [facility] HospitalActivated partial thromboplastin time (aPTT) in platelet poor plasma by coagulation afves8800-05-22 10:15:00* Test Item Value Reference Range Interpretation Comments Activated Partial Thromboplast Time (test code = 53533-4) 30.2 23.8-35.5 [facility] HospitalFluoroscopic procedure less than one hour tpydtjpt0181-57-53 10:15:00* Test Item Value Reference Range Interpretation Comments Lactic Acid Level (test code = Lactic Acid Level) 1.5 0.5- 2.0 [facility] HospitalBNP Wqg-xHii2384-49-03 10:15:00* Test Item Value Reference Range Interpretation Comments B-Type Natriuretic Peptide (test code = 22854-1) 32.1 0-100 [facility] bzfrbuq2980-32-41 10:15:00* Test Item Value Reference Range Interpretation Comments Blood Culture (test code = 32589228) NO GROWTH AFTER 5 DAYS, FINAL REPORT [facility] HospitalCHEST SINGLE (PORTABLE)2020-03-13 18:24:00 [facility] [address] [address] Patient Name: NOEMY ARGUETA MR #: [id number] : 1935 Age/Sex: 84/M Req #: [id number] Adm Physician: Ordered by: PER AU MD Report #: [id number] Location: ER Room/Bed: Procedure: [id number] DX/CHEST SINGLE (PORTABLE) Exam Date: 03/13/20 Exam [...] Interpretation Comments Bedside Glucose (test code = 42543-7) 123 70-120 H Meter ID: [id number]. Luke's Health [facility] HospitalClumped Platelets 2019-05-15 08:26:00* Test Item Value Reference Range Interpretation Comments Clumped Platelets (test code = 7796-6) NONE NONE [facility] Centerodium Sydpw5693-61-12 05:59:00* Test Item Value Reference Range Interpretation Comments Sodium Level (test code = 2951-2) 141 136-145 [facility] HospitalPotassium Hpedi6435-80-81 05:59:00* Test Item Value Reference Range Interpretation Comments Potassium Level (test code = 2823-3) 3.4 3.5-5.1 L [facility] HospitalChloride Fndhe9061-87-50 05:59:00* Test Item Value Reference Range Interpretation Comments Chloride Level (test code = 2075-0) 110 98-107 H [facility] HospitalCarbon Dioxide Vymad1710-03-45 05:59:00* Test Item Value Reference Range Interpretation Comments Carbon Dioxide Level (test code = 2028-9) 23 22-29 [facility] HospitalAnion Uue7319-64-99 05:59:00* Test Item Value Reference Range Interpretation Comments Anion Gap (test code = 97203-9) 11.4 8-16 [facility] HospitalBlood Urea Jsynvhqz5697-95-86 05:59:00* Test Item Value Reference Range Interpretation Comments Blood Urea Nitrogen (test code = 3094-0) 15 7-26 [facility] HospitalCreatinine2019-08-16 05:59:00* Test Item Value Reference Range Interpretation Comments Creatinine (test code = 2160-0) 0.96 0.72-1.25 [facility] HospitalBUN/Creatinine Gjbfk6030-85-28 05:59:00* Test Item Value Reference Range Interpretation Comments BUN/Creatinine Ratio (test code = 3097-3) 16 6-25 [facility] [facility] HospitalEstimat Glomerular Filtration Rate 2019-05-15 05:59:00* Test Item Value Reference Range Interpretation Comments Estimat Glomerular Filtration Rate (test code = 762453431) > 60 >60 Ranges were taken from the National Kidney Disease Education Program and the [facility] literature.Reference ranges:60 or greater: Inoahj51-24 ( for 3 consecutive months): Chronic kidney disease 15 or less: Kidney failureAudie L. Murphy Memorial VA HospitalGlucose Uvvdv8665-72-49 05:59:00* Test Item Value Reference Range Interpretation Comments Glucose Level (test code = FPC2057) 122 74-118 H [facility] HospitalCalcium Hirlx4044-41-33 05:59:00* Test Item Value Reference Range Interpretation Comments Calcium Level (test code = 21066-7) 7.6 8.4-10.2 L [facility] HospitalTotal Eycpszqtm2678-41-93 05:59:00* Test Item Value Reference Range Interpretation Comments Total Bilirubin (test code = 1975-2) 0.3 0.2-1.2 [facility] HospitalAspartate Amino Transf (AST/SGOT) 2019-05-15 05:59:00* Test Item Value Reference Range Interpretation Comments Aspartate Amino Transf (AST/SGOT) (test code = Aspartate Amino Transf (AST/SGOT)) 15 5-34 [facility] HospitalAlanine Aminotransferase (ALT/SGPT) 2019-05-15 05:59:00* Test Item Value Reference Range Interpretation Comments Alanine Aminotransferase (ALT/SGPT) (test code = 1742-6) 6 0-55 [facility] HospitalTotal Dregcan4818-75-01 05:59:00* Test Item Value Reference Range Interpretation Comments Total Protein (test code = 2885-2) 4.8 6.5-8.1 L [facility] HospitalAlbumin2019-08-16 05:59:00* Test Item Value Reference Range Interpretation Comments Albumin (test code = 1751-7) 2.1 3.5-5.0 L [facility] HospitalGlobulin2019-08-16 05:59:00* Test Item Value Reference Range Interpretation Comments Globulin (test code = 66724-5) 2.7 2.3-3.5 [facility] HospitalAlbumin/Globulin Qlhtq0985-74-27 05:59:00 * Test Item Value Reference Range Interpretation Comments Albumin/Globulin Ratio (test code = 1759-0) 0.8 0.8-2.0 [facility] HospitalAlkaline Nehrxhqmooy5909-10-41 05:59:00* Test Item Value Reference Range Interpretation Comments Alkaline Phosphatase (test code = 6768-6) 56 40-150 [facility] HospitalWhite Blood Dfuqo8699-26-50 05:58:00* Test Item Value Reference Range Interpretation Comments White Blood Count (test code = 6690-2) 7.18 4.8-10.8 [facility] HospitalRed Blood Uyetj1955-31-12 05:58:00* Test Item Value Reference Range Interpretation Comments Red Blood Count (test code = 789-8) 3.55 4.3-5.7 L [facility] HospitalHemoglobin2019-08-16 05:58:00* Test Item Value Reference Range Interpretation Comments Hemoglobin (test code = 41054-9) 10.7 14.0-18.0 L [facility] HospitalHematocrit2019-08-16 05:58:00* Test Item Value Reference Range Interpretation Comments Hematocrit (test code = 4544-3) 32.4 38.2-49.6 L [facility] HospitalMean Corpuscular Qdegce9500-19-30 05:58:00* Test Item Value Reference Range Interpretation Comments Mean Corpuscular Volume (test code = 787-2) 91.3 81-99 [facility] HospitalMean Corpuscular Wndxmrxlku8656-66-15 05:58:00* Test Item Value Reference Range Interpretation Comments Mean Corpuscular Hemoglobin (test code = 785-6) 30.1 28-32 [facility] Hem[facility] Concent 2019-05-15 05:58:00* Test Item Value Reference Range Interpretation Comments Mean Corpuscular Hemoglobin Concent (test code = 786-4) 33.0 31-35 [facility] HospitalRed Cell Distribution Wefwf5367-43-91 05:58:00* Test Item Value Reference Range Interpretation Comments Red Cell Distribution Width (test code = 34878-7) 13.7 11.7 -14.4 [facility] HospitalPlatelet Cxpgw6926-39-86 05:58:00* Test Item Value Reference Range Interpretation Comments Platelet Count (test code = 777-3) 134 140-360 L [facility] HospitalNeutrophils (%) (Auto)2019-05-15 05:58:00 * Test Item Value Reference Range Interpretation Comments Neutrophils (%) (Auto) (test code = 56522-1) 68.2 38.7-80.0 [facility] HospitalLymphocytes (%) (Auto)2019-05-15 05:58:00 * Test Item Value Reference Range Interpretation Comments Lymphocytes (%) (Auto) (test code = 736-9) 19.8 18.0-39.1 [facility] HospitalMonocytes (%) (Auto)2019-05-15 05:58:00* Test Item Value Reference Range Interpretation Comments Monocytes (%) (Auto) (test code = 5905-5) 9.9 4.4-11.3 [facility] HospitalEosinophils (%) (Auto)2019-05-15 05:58:00 * Test Item Value Reference Range Interpretation Comments Eosinophils (%) (Auto) (test code = 713-8) 1.3 0.0-6.0 [facility] HospitalBasophils (%) (Auto)2019-05-15 05:58:00* Test Item Value Reference Range Interpretation Comments Basophils (%) (Auto) (test code = 706-2) 0.4 0.0-1.0 [facility] HospitalIM GRANULOCYTES %2019-05-15 05:58:00* Test Item Value Reference Range Interpretation Comments IM GRANULOCYTES % (test code = IM GRANULOCYTES %) 0.4 0.0- 1.0 [facility] HospitalNeutrophils # (Auto)2019-05-15 05:58:00* Test Item Value Reference Range Interpretation Comments Neutrophils # (Auto) (test code = 751-8) 4.9 2.1-6.9 [facility] HospitalLymphocytes # (Auto)2019-05-15 05:58:00* Test Item Value Reference Range Interpretation Comments Lymphocytes # (Auto) (test code = 44328-0) 1.4 1.0-3.2 [facility] HospitalMonocytes # (Auto)2019-05-15 05:58:00* Test Item Value Reference Range Interpretation Comments Monocytes # (Auto) (test code = 742-7) 0.7 0.2-0.8 [facility] HospitalEosinophils # (Auto)2019-05-15 05:58:00* Test Item Value Reference Range Interpretation Comments Eosinophils # (Auto) (test code = 711-2) 0.1 0.0-0.4 [facility] HospitalBasophils # (Auto)2019-05-15 05:58:00* Test Item Value Reference Range Interpretation Comments Basophils # (Auto) (test code = 704-7) 0.0 0.0-0.1 [facility] HospitalAbsolute Immature Granulocyte (auto 2019-05-15 05:58:00* Test Item Value Reference Range Interpretation Comments Absolute Immature Granulocyte (auto (faye t code = Absolute Immature Granulocyte (auto) 0.03 0-0.1 [facility] HospitalBlood Mmtttai5965-42-08 23:56:00* Test Item Value Reference Range Interpretation Comments Blood Culture (test code = 57924280) NO GROWTH AFTER 24 HOURS [facility] HospitalHIPS BILAT TWO VWS(+/- PELVIS)2019-05-14 17:32:00 [facility] [address] [place] [address] Patient Name: NOEMY ARGUETA MR #: [id number] : 1935 Age/Sex: 83/M Req #: [id number] Adm Physician: HAZEL SHAW MD Ordered by: HAZEL SHAW MD Report #: [id number] Location: MED/SURG2 Room/Bed: [facility] Procedure: 8665-5673 D X/HIPS BILAT TWO VWS(+/- PELVIS) Exam [...] COPY TO: HAZEL SHAW MD Creatine Kinase CR0223-65-44 09:00:00* Test Item Value Reference Range Interpretation Comments Creatine Kinase MB (test code = 21638-8) 5.60 0-5.0 H [facility] HospitalTroponin U7609-63-58 09:00:00* Test Item Value Reference Range Interpretation Comments Troponin I (test code = EVT1975) 0.015 0-0.300 [facility] HospitalCreatine Sxmubd6093-41-46 08:35:00* Test Item Value Reference Range Interpretation Comments Creatine Kinase (test code = 2157-6) 257 30-200 H [facility] HospitalUrine YER1996-24-87 03:56:00* Test Item Value Reference Range Interpretation Comments Urine WBC (test code = 5821-4) 0-5 0-5 [facility] HospitalUrine HRT2406-39-37 03:56:00* Test Item Value Reference Range Interpretation Comments Urine RBC (test code = 91772-5) 0-5 0-5 [facility] HospitalUrine Aewxxvzd0941-38-70 03:56:00* Test Item Value Reference Range Interpretation Comments Urine Bacteria (test code = 40476-4) RARE NONE [facility] Epithelial Qrgxg2901-74-66 03:56:00 * Test Item Value Reference Range Interpretation Comments Urine Epithelial Cells (test code = 92542-2) FEW NONE [facility] HospitalUrine Alskj4133-69-62 03:50:00* Test Item Value Reference Range Interpretation Comments Urine Color (test code = 5778-6) YELLOW YELLOW [facility] HospitalUrine Ynsbqcq6221-64-59 03:50:00* Test Item Value Reference Range Interpretation Comments Urine Clarity (test code = 31914-6) CLEAR CLEAR [facility] Specific Qgwmsfw4593-41-95 03:50:00 * Test Item Value Reference Range Interpretation Comments Urine Specific [place] (test code = 5811-5) <=1.005 1.010-1.02 5 [facility] HospitalUrine aT3972-50-14 03:50:00* Test Item Value Reference Range Interpretation Comments Urine pH (test code = 51438-1) 6 5-7 [facility] Leukocyte Nrlshpel0555-80-34 03:50:00* Test Item Value Reference Range Interpretation Comments Urine Leukocyte Esterase (test code = 56041-4) NEGATIVE NEGATIV E [facility] Gkoihlq3339-35-82 03:50:00* Test Item Value Reference Range Interpretation Comments Urine Nitrite (test code = 57321-8) NEGATIVE NEGATIVE [facility] Aaagesh0968-46-43 03:50:00* Test Item Value Reference Range Interpretation Comments Urine Protein (test code = 26395-3) NEGATIVE NEGATIVE [facility] Glucose (UA)2019-05-14 03:50:00* Test Item Value Reference Range Interpretation Comments Urine Glucose (UA) (test code = 96406-9) NEGATIVE NEGATIVE [facility] Ftjotdy3200-13-17 03:50:00* Test Item Value Reference Range Interpretation Comments Urine Ketones (test code = 25934-8) NEGATIVE NEGATIVE [facility] HospitalUrine Amctrbywrttz9251-79-10 03:50:00* Test Item Value Reference Range Interpretation Comments Urine Urobilinogen (test code = 21060-6) 0.2 0.2-1 [facility] HospitalUrine Wavmcdxvr8729-67-58 03:50:00* Test Item Value Reference Range Interpretation Comments Urine Bilirubin (test code = 1977-8) NEGATIVE NEGATIVE [facility] HospitalUrine Yxkgv4717-38-42 03:50:00* Test Item Value Reference Range Interpretation Comments Urine Blood (test code = 49410-9) NEGATIVE NEGATIVE [facility] HospitalUrine Opiates Mkewga4160-65-08 03:49:00* Test Item Value Reference Range Interpretation Comments Urine Opiates Screen (test code = 57816-2) POSITIVE NEGATIVE H ALL TESTS PERFORMED MANUALLY ON [employer] TOX/SEE TEST This test provides only a sc reen. Positive results should be repeated by a confirmatory test.[facility] HospitalUrine Barbiturates Obmcsw5507-27-85 03:49:00* Test Item Value Reference Range Interpretation Comments Urine Barbiturates Screen (test code = 324561199) NEGATIVE NEGA TIVE [facility] HospitalUrine Phencyclidine Afekjz1692-04-03 03:49:00* Test Item Value Reference Range Interpretation Comments Urine Phencyclidine Screen (test code = 36779-8) NEGATIVE NEGAT VALENTINE [facility] HospitalUrine Amphetamines Cqpkst3071-49-42 03:49:00* Test Item Value Reference Range Interpretation Comments Urine Amphetamines Screen (test code = 23964-8) NEGATIVE NEGATI VE [facility] HospitalUrine Methamphetamines Jcgxea1721-01-07 03:49:00* Test Item Value Reference Range Interpretation Comments Urine Methamphetamines Screen (test code = Urine Metha mphetamines Screen) NEGATIVE NEGATIVE [facility] HospitalUrine Benzodiazepines Lzlixd6673-03-99 03:49:00* Test Item Value Reference Range Interpretation Comments Urine Benzodiazepines Screen (test code = 47331-3) POSITIVE NEG ATIVE H This test provides only a screen. Positive results should be repeated by a confi rmatory test.[facility] HospitalUrine Cocaine Screen 2019-05-14 03:49:00* Test Item Value Reference Range Interpretation Comments Urine Cocaine Screen (test code = 3398-5) NEGATIVE NEGATIVE [facility] Center[facility] Cannabinoids Wihaze1965-54-58 03:49:00* Test Item Value Reference Range Interpretation Comments Urine Cannabinoids Screen (test code = 76192-8) NEGATIVE NEGATI VE THESE RESULTS ARE FOR MEDICAL TREATMENT ONLYTHIS REPORT CONTAINS UNCONFIR MED SCREENING RESULTS*POSITIVE RESULTS WILL BE CONFIRMED BY REFERENCE LAB UPON R EQUEST CUT-OFFDRUG CLASS CONCENTRATION ng/mLAmphetamines 1000Methamphetamines 1000Cocaine 300Opiate 300Phencyc lidine 25Cannabinoid 50Barbiturates 300Benzodiazepine 300Methadone 300[facility] CenterUrine Methadone Udptau0516-24-10 03:49:00* Test Item Value Reference Range Interpretation Comments Urine Methadone Screen (test code = 85892-4) NEGATIVE NEGATIVE THESE RESULTS ARE FOR MEDICAL TREATMENT ONLYTHIS REPORT CONTAINS UNCONFIR MED SCREENING RESULTS*POSITIVE RESULTS WILL BE CONFIRMED BY REFERENCE LAB UPON R EQUEST CUT-OFFDRUG CLASS CONCENTRATION ng/mLAmphetamines 1000Methamphetamines 1000Cocaine Metabolite 300Opiate 300Phencyc lidine 25Cannabinoid 50Barbiturates 300Benzodiazepine 300Methadone 300[facility] CenterCT CERVICAL SPINE LL2834-51-87 00:55:00 [place] [address] Patient Name: NOEMY ARGUETA MR #: [id number] : 1935 Age/Sex: 83/M Req #: [id number] [facility] Physician: Ordered by: CINDY BURROWS MD Report #: [id number] Location: Room/Bed: Procedure: 43 CT/CT CERVICAL SPINE [...] foraminal stenosis. . IMPRESSION: 1. No ac [place] cervical spine fracture or dislocation. Reversal of [...] BURROWS MD CHEST SINGLE (PORTABLE) 2019-05-14 00:53:00 [facility] [address] [place] [address] Patient Name: NOEMY ARGUETA MR #: [id number] : 1935 Age/Sex: 83/M Req #: [id number] [facility] Physician: Ordered by: CINDY BURROWS MD Report #: [id number] Location: ER Room/Bed: Procedure: 60 DX/CHEST SINGLE [...] COPY TO: CINDY BURROWS MD CT BRAIN LX5212-78-99 00:47:00 [facility] [address] [place] [address] Patient Name: NOEMY ARGUETA MR #: [id number] : 1935 Age/Sex: 83/M Req #: [id number] Adm Physician: Ordered by: CINDY BURROWS MD Report #: [id number] Location: ER Room/Bed: Procedure: CT/CT BRAIN WO [...] COPY TO: CINDY BURROWS MD Lactic Acid Xuvzr3179-31-27 00:36:00* Test Item Value Reference Range Interpretation Comments Lactic Acid Level (test code = Lactic Acid Level) 18.7 4.5- 19.8 [facility] HospitalCHES 2 XAJZV6435-44-50 17:12:00 [place] [address] Patient Name: NOEMY ARGUETA MR #: [id number] : 1935 Age/Sex: 83/M Req #: [id number] Adm Physician: Ordered by: ELMIRA HUGHES MD Report #: [id number] Location: OR Room/Bed: Procedure: DX/CH EST 2 [...] on 03/11/191718 COPY TO: ELMIRA HUGHES MD RKAHID7949-91-52 17:11:00* Test Item Value Reference Range Interpretation Comments GLUBED (test code = GLUBED) 98 mg/dL 74-106 N [facility]~ UQVIJA7959-57-36 12:12:00* Test Item Value Reference Range Interpretation Comments GLUBED (test code = GLUBED) 163 mg/dL 74-106 H Per[facility] certified rim roller [facility]~ DVDEBN8703-98-96 08:00:00* Test Item Value Reference Range Interpretation Comments GLUBED (test code = GLUBED) 90 mg/dL 74-106 N [facility] certified rim roller [facility]~ BASIC METABOLIC HYNOO4893-54-73 05:35:00* Test Item Value Reference Range Interpretation [...] CK) 2348 IUnit/L 26-208 H BASIC METABOLIC TQQGE5354-44-86 05:16:00* Test Item Value Reference Range Interpretation [...] (CK) (test code = CK) IUnit/L 26-208 KFXAIB5780-42-99 20:59:00* Test Item Value Reference Range Interpretation Comments GLUBED (test code = GLUBED) 125 mg/dL 74-106 H [facility] certified rim roller [facility]~ ZDCEWF8780-57-64 16:45:00* Test Item Value Reference Range Interpretation Comments GLUBED (test code = GLUBED) 107 mg/dL 74-106 H [facility] certified rim roller [facility]~ URINALYSIS CDUXSNHN6385-65-40 13:53:00* Test Item Value Reference Range Interpretation [...] FEW #/HPF NONE Urine Source? Clean CatchURINALYSIS ZLAOGKHH9721-98-03 13:49:00* Test Item Value Reference Range Interpretation [...] BACU) per HPF NONE Urine Source? Clean WloefSMJYFM3273-78-83 12:47:00* Test Item Value Reference Range Interpretation Comments GLUBED (test code = GLUBED) 114 mg/dL 74-106 H [facility] rim roller [facility]~ FQMREF8212-93-94 08:17:00* Test Item Value Reference Range Interpretation Comments GLUBED (test code = GLUBED) 96 mg/dL 74-106 N [facility] certified rim roller [facility] BASIC METABOLIC FBIPR5749-68-51 08:12:00* Test Item Value Reference Range Interpretation [...] CK) 5208 IUnit/L 26-208 H BASIC METABOLIC KDTKJ5054-82-00 07:39:00* Test Item Value Reference Range Interpretation [...] (CK) (test code = CK) IUnit/L 26-208 AVRRUJ3520-69-03 21:50:00* Test Item Value Reference Range Interpretation Comments GLUBED (test code = GLUBED) 117 mg/dL 74-106 H Performed by certified rim roller operator at [facility] - CT L-SPINE W/O MPUNMKVW5637-31-26 19:37:00 Name: NOEMY ARGUETA [facility] : 1935 Age/S: 83 / M [address] [facility] Unit #: [id number] Loc: [place] [address] Phys: Shannon Corey MD Acct: [id number] Dis Date: Status: ADM IN PHONE #: [phone] Exam Date: 01/21/2019 191 FAX #: [phone] Reason: H/o fall EXAMS: CPT CODE: [id number] CT L-SPINE W/O CONTRAST 64572 REASON FOR EXAM: H/o fall EXAM ORDER [...] : 1935 Age/S: 83 / M [address] [facility] Unit #: [id number] Loc: [place] [address] Phys: Shannon Corey MD Acct: [id number] Dis Date: Status: ADM IN PHONE #: [phone] Exam Date: 01/21/2019 191 FAX #: [phone] Reason: H/o fall EXAMS: CPT CODE: [id number] CT T-SPINE W/O CONTRAST 82102 REASON FOR EXAM: H/o fall EXAM ORDER [...] : 1935 Age/S: 83 / M [address] [facility] Unit #: [id number] Loc: [facility] [place] [address] Phys: Shannon Corey MD Acct: [id number] Dis Date: Status: ADM IN PHONE #: [phone] Exam Date: 01/21/20191918 FAX #: [phone] Reason: H/o fall EXAMS: CPT CODE: [id number] CT C-SPINE W/O CONTRAST 91408 REASON FOR EXAM: H/o fall EXAM ORDER [...] (1936) CTDI: DLP: PAGE 1 Signed Report [id number] 15:53:00* Test Item Value Reference Range Interpretation Comments GLUBED (test code = GLUBED) 120 mg/dL 74-106 H Performed by certified rim roller operator at [facility] - XR RIBS UNI W/CXR 3+V PF9516-24-68 12:17:00 FAX: Obey De Souza MD [phone] [place]: St: ADM FAX: Y David Edwards MD [phone] Name: NOEMY ARGUETA [facility] : 1935 Age/S: 83/M [address] [facility] Unit #: [id number] Loc: [address] [address] Phys: Obey De Souza MD Acct: [id number] Dis Date: Status: ADM IN PHONE #: [phone] Exam Date: 01/20/2019 2255 FAX #: [phone] Reason: rib pain, fall EXAMS: CPT CODE: [id number] XR RIBS UNI W/CXR 3+[place] [address] HISTORY: Pain after fall. COMPARISON: Chest x-ray [...] S: 01/22/2019 (1147) PAGE 1 Signed Report [id number] 12:13:00* Test Item Value Reference Range Interpretation Comments GLUBED (test code = GLUBED) 114 mg/dL 74-106 H Performed by certified rim roller operator at [facility] - CT HEAD/BRAIN W/O ZRTL3576-03-23 12:02:00 Name: NOEMY ARGUETA [facility] : 1935 Age/S: 83 / M [address] [facility] Unit #: [id number] Loc: [place] [address] Phys: Obey De Souza MD Acct: [id number] Dis Date: Status: ADM IN PHONE #: [phone] Exam Date: 01/20/2019 2300 FAX #: [phone] Reason: fall/AMS EXAMS: CPT CODE: [id number] CT HEAD/BRAIN W/O CONT 41996 HISTORY: Confusion. COMPARISON: None available. CT brain [...] (1202) t.SDR.TH4 Orig Print D/T: S: 01/21/2019 (1994) CTDI: DLP: PAGE 1 Signed Report [id number] 07:52:00* Test Item Value Reference Range Interpretation Comments GLUBED (test code = GLUBED) 100 mg/dL 74-106 N Performed by certified rim roller operator at [facility] BASIC METABOLIC JANJR6820-67-34 23:39:00* Test Item Value Reference Range Interpretation [...] CK) 7841 IUnit/L 26-208 H BASIC METABOLIC VAHJT1011-24-59 23:09:00* Test Item Value Reference Range Interpretation [...] code = CK) IUnit/L 26-208 BASIC METABOLIC TDFNE1533-46-10 23:02:00* Test Item Value Reference Range Interpretation [...] code = CK) IUnit/L 26-208 CBC W/AUTO [id number] 22:47:00* Test Item Value Reference Range Interpretation [...] (test code = MDIFF) NO CBC W/AUTO YNSV5232-23-55 22:39:00* Test Item Value Reference Range Interpretation [...] BA#) K/mm3 0.0-0.2 XR RIBS UNILATERAL/ PA TRRJE0443-17-66 14:04:37Procedures: XR RIBS UNILATERAL/ PA CHESTExam Date: [...] By: AG WATSONDate: 02/23/2018 14:04MRI BRAIN WO [place] [address] Patient Name: NOEMY ARGUETA MR #: [id number] : 1935 Age/Sex: 82/M Req #: [id number] Adm Physician: KLAUDIA ARZOLA MD Ordered by: CARISSA ROSAS MD Report #: [id number] Location: [facility] Room/Bed: [place] [address] Procedure: 1412-1590 MRI /MRI BRAIN WO Exam Date: 06/28/17 [...] on 06/28/172230 COPY TO: CARISSA ROSAS MD [facility] (PORTABLE) [place] [address] Patient Name: NOEMY ARGUETA MR #: [id number] : 1935 Age/Sex: 82/M Req #: [id number] Adm Physician: Ordered by: ABEL DE LEÓN Report #: [id number] Location: Room/Bed: Procedure: 8296-2133 DX/CHEST SINGLE (PORTABLE) Ex am Date: 06/28/17 [...] TO: ABEL DE LEÓN CT BRAIN WO [place] [address] Patient Name: NOEMY ARGUETA MR #: [id number] : 1935 Age/Sex: 82/M Req #: [id number] Adm Physician: Ordered by: ABEL DE LEÓN Report #: [id number] Location: ER Room/Bed: Procedure: 9708-9629 CT/CT BRAIN WO Exam Date: Exam Time: [...] TO: SALTY DE LEÓN CT BRAIN WO [place] [address] Patient Name: NOEMY ARGUETA MR #: [id number] : 1935 Age/Sex: 82/M Req #: [id number] Adm Physician: Ordered by: MELANIE PRAKASH MD Report #: [id number] Location: ER Room/Bed: Procedure: 5488-6342 CT/CT BRAIN WO Exam Date: Exam Time: [...]
== END 2020-06-25 18:11 | disposition home or self-care (01) | DRG 194 ==
LOC: ER 15:10 → ERHOLD 18:49 → MED/SURG2 06-23 12:31 → OBSVTOIN 06-24 10:33
DX: J18.9 Pneumonia, unspecified organism (principal); I48.20 Chronic atrial fibrillation, unspecified; Z79.01 Long term (current) use of anticoagulants; K21.9 Gastro-esophageal reflux disease without esophagitis; M19.90 Unspecified osteoarthritis, unspecified site; G25.81 Restless legs syndrome; G62.9 Polyneuropathy, unspecified; Z11.59 Encounter for screening for other viral diseases; Z91.040 Latex allergy status
CPT/HCPCS: 36415; 71045; 71046; 80048; 80053; 80202; 81001; 82550; 82553; 82948; 83605; 83880; 84484; 85025; 85610; 85651; 85730; 87040; 87071; 87086; 87205; 93005; 99285; G0378; J2543; J3370; J7030; Q0162; U0002

== ENCOUNTER → 2020-07-25 | Day surgery (SDC) | payer MEDICARE ==
[2020-07-21 15:07] LABS: BASOPHILS # (AUTO) 0.1 (0.0-0.1); BASOPHILS % 0.7 % (0.0-1.0); EOSINOPHILS # (AUTO) 0.1 (0.0-0.4); EOSINOPHILS % 1.1 % (0.0-6.0); HEMATOCRIT 40.5 % (38.2-49.6); HEMOGLOBIN 13.3 g/dL (14.0-18.0); LYMPHOCYTES # (AUTO) 1.6 (1.0-3.2); LYMPHOCYTES % 19.8 % (18.0-39.1); MEAN CORPUSCULAR HEMOGLOBIN 30.4 pg (28-32); MEAN CORPUSCULAR HGB CONC 32.8 g/dL (31-35); MEAN CORPUSCULAR VOLUME 92.5 fL (81-99); MONOCYTES # (AUTO) 0.9 (0.2-0.8); MONOCYTES % 10.9 % (4.4-11.3); NEUTROPHILS # (AUTO) 5.4 (2.1-6.9); PLATELET COUNT 176 x10e3/uL (140-360); RED BLOOD COUNT 4.38 x10e6/uL (4.3-5.7); RED CELL DISTRIBUTION WIDTH 13.2 % (11.7-14.4)
[~2020-07-25] MED LIST changes: +CHLORDIAZEPOXID10 MG PO; +DOCUSATE SODIU100 MG PO; +FENTANYL CITRATE/PF 100MCG/2 ML INJ ONE; +LIDOCAINE HCL 2% LOCAL INJ 5 ML SDV VIAL INJ ONE; +METOCLOPRAMIDE HCL 10 MG/2ML VIAL ONE; +PANTOPRAZOLE 40 MG 10ML VIAL ONE; +PROMETHAZINE PO; +PROPOFOL IV EMULSION 10 MG/ML 20 ML VIAL ONE; +ROPINIROLE HCL1 MG PO; +TRAMADOL HCL100 MG PO; +ZOFRAN4 MG PO
[2020-07-25 09:34] VITALS: BP 128/60
--- NOTE | 2020-07-25 10:04 | Operative Report ---
DATE OF PROCEDURE: 07/25/2020 SURGEON: Donny Valentine MD PROCEDURE: EGD with esophageal dilatation and biopsies. INDICATIONS FOR EGD: Dysphagia to solids, nausea. MEDICATIONS: The patient was done under MAC, please see anesthesiologist's note. PROCEDURE IN DETAIL: With the patient in the left lateral decubitus position, the flexible fiberoptic Olympus gastroscope was introduced into the esophagus under direct visual visualization without any difficulty. There was a mild stricture noted just below the upper esophageal sphincter. The scope was then advanced with ease into the stomach and the mucosa overlying the distal esophagus revealed some patchy areas of erythema. Mucosa overlying the antrum and the body revealed some diffuse erythema and moderate edema, and biopsies were obtained and sent to stain for H. pylori. An approximately 1 cm nodular friable sessile lesion was noted in the peripyloric area and that was biopsied. Pylorus was intubated with ease and the scope was advanced to the second portion of the duodenum. The scope was then withdrawn slowly. Mucosa overlying the proximal second portion and duodenal bulb appeared to be within normal limits. The scope was then withdrawn back into the stomach and retroflexed, mucosa overlying the fundus and the cardia appeared to be within normal limits. The scope was then straightened out and it was subsequently withdrawn. Esophageal stricture was then dilated to size 54-[place]. The patient tolerated the procedure well. IMPRESSION: 1. 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 2. Distal esophagitis, mild. 3. Gastritis, biopsied, biopsies sent to stain for Helicobacter pylori. 4. Approximately 1 cm nodular friable peripyloric lesion, biopsied. PLAN: Follow up histology. Increase Protonix to 40 mg one p.o. before meals b.i.d. MD EUNICE Jensen/PARISH /[id number] cc: David Edwards
== END | disposition home or self-care (01) ==
LOC: OR 05:53
PROVIDERS: ATTEND Internal Medicine Gastroenterology
DX: K29.50 Unspecified chronic gastritis without bleeding (principal); K22.2 Esophageal obstruction; K20.90 Esophagitis, unspecified without bleeding; K31.9 Disease of stomach and duodenum, unspecified; K21.9 Gastro-esophageal reflux disease without esophagitis; R63.4 Abnormal weight loss; N28.89 Other specified disorders of kidney and ureter; R53.1 Weakness; R03.0 Elevated blood-pressure reading, without diagnosis of hypertension; Z91.040 Latex allergy status; Z01.812 Encounter for preprocedural laboratory examination; Z11.59 Encounter for screening for other viral diseases; Z85.46 Personal history of malignant neoplasm of prostate
CPT/HCPCS: 36415; 43239; 43450; 85025; C9113; J2001; J2704; J2765; J3010; U0002

== ENCOUNTER 2020-08-07 16:37 | Observation (INO) | payer MEDICARE ==
[~2020-08-07] VITALS: Ht 180.3 cm; Wt 103.9 kg
[~2020-08-07 16:37] MED LIST changes: -FENTANYL CITRATE/PF 100MCG/2 ML INJ ONE; -LIDOCAINE HCL 2% LOCAL INJ 5 ML SDV VIAL INJ ONE; -METOCLOPRAMIDE HCL 10 MG/2ML VIAL ONE; -PANTOPRAZOLE 40 MG 10ML VIAL ONE; -PROPOFOL IV EMULSION 10 MG/ML 20 ML VIAL ONE
--- OUTSIDE RECORDS SUMMARY | 2020-08-07 17:11 | XMS REPORT | Continuity of Care Document ---
Author Author [employer] Address Unknown Phone Unavailable Care Team Providers Care [place] Carpenter Name Role Phone [employer] Information Stampt Unavailable Un available Problems Problem Status Onset [...] viral diseases Active Diagnosis 09/02/2019 [facility] (current) use of opiate analgesic Active Diagnosis [...] Orally Active 4mg Orally once a day [place] 04/22/2020 [facility] In[facility] Tylenol/Codeine #3 1 tablet as needed Orally Active 300-30 MG Orally every 6 hrs [facility] 04/14/2020 Keegan Ingram Chlordiazepoxide HCl 1 capsule Orally Active 10 MG Orally Twice a day [facility] 04/14/2020 [facility] Ingram Tramadol HCl 1 tablet as needed Orally Active 50 mg Orally twice a day (bid) [place] 08/20/2019 Keegan Ingram Medrol Dose [place] as directed Orally Active 4mg Orally once a day [facility] 12/01/2018 Keegan Ingram Chlordiazepoxide HCl 1 capsule Orally Active 10 MG Orally Twice a day [place] 09/09/2018 [facility] Ingram Chlordiazepoxide HCl 1 capsule Orally Active 25 MG Orally tid for nausea [place] 08/12/2018 [facility] Ingram PredniSONE 1-2 tabs prn for ar thritis flare up Orally Active 5 MG Orally Once a day [facility] 08/05/2018 Keegan Ingram Zofran 1 tablet Orally Active 8 MG Orally Twice a day [facility] 08/05/2018 Keegan Ingram Tylenol/Codeine #3 1 tablet as needed Orally Active 300-30 MG Orally qid [place] 06/10/2018 [facility] Ingram Meclizine HCl 1 tablet as need ed Orally Active 25 MG Orally Once a day [place] 06/10/2018 [facility]egan Ingram Vitamin D (Ergocalciferol) 1 c apsule Orally Active 54327 UNIT Orally once a week [place] 12/17/2017 Keegan Ingram Simponi Aria as directed Intravenous Active 50 MG/4ML Intravenous [place] 09/02/2017 [facility] Ingram PredniSONE 1-2 tabs PRN Orally Active 5 MG Orally Once a day [place] 08/20/2017 [facility]egan Ingram PredniSONE 1-2 tabs PRN [...]
--- OUTSIDE RECORDS SUMMARY | 2020-08-07 17:12 | XMS REPORT | Continuity of Care Document ---
Author Author [facility] t Organization [facility] Address [address] [place] [id number] Phone Unavailable Care Team Providers Care Quality Control Lab Technician Name Role Phone MD KLAUDIA ARZOLA PCP KLAUDIA ARZOLA Attphys Unavailable DUCHAMPGerson RACQUEL Attphys Unavailable Gerson AU Attphys Unavailable NIECY ARZOLA Attphys Unavailable AG JACOBSEN Attphys Unavailable SHAW, Gerson OLIVA Attphys Unavailable ELMIRA HUGHES Attphys Unavailable JOE EASLEY Attphys Unavailable Gigi PRAKASH Attphys Unavailable KLAUDIA ARZOLA Admphys Unavailable AG JACOBSEN Admphys Unavailable SHAW, Gerson HAZEL Admphys Unavailable TRACEE PENNahomi Admphys Unavailable Payers Payer Name Policy Type Policy Number Effective Date Expiration Date S macie [facility] [id number] 2019 00:00:00 [facility] Problems Condition Name Condition Details Condition Category Status Onset Date Resolution Date Last Treatment Date Treating Clinician Comments Source Closed fracture of one rib Closed fracture of one rib Problem Active 2018-02-22 00:00:00 [facility] (LUF/IZAIAH/SA) Arthralgia of bilateral temporomandibular joint Arthra [...] [facility] Dizziness Dizziness Problem Active [facility] Foreign body in esophagus Esophageal foreign body Problem Active [facility] Fever Fever Problem Active [facility] Weakness Generalized weakness Problem Active [facility] Pill esophagitis Pill esophagitis Problem Active [facility] Pneumonia Pneumonia Problem Active [facility] Nausea Problem Active [facility] Pre-syncope Problem Active [facility] Constipation Problem Active [facility] Mass of right kidney Problem Active [facility] Weight loss Problem Active [facility] Knee pain, right Knee pain, right Active [...] 04/24/2020 Keegan Ingram Problem Active 2020-04-24 02:45:06 [facility] 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 Active Problem 01/25/2018 Philippe Gibson Problem Active 2018-01-25 02:45:48 [facility] Bilateral lower extremity edema Bilateral lower extremity edema Active Problem 01/25/2018 Philippe Gibson Problem Active 2018-01-25 02:45:48 [facility] Venous insufficiency Veno us insufficiency Active Diagnosis 03/07/2017 Philippe Gibson Diagnosis Active 2017-03-07 02:45 :07 John Cárdenas Essential hypertension Esse ntial hypertension Active Problem 01/25/2018 Philippe Gibson Problem Active 20 16-01-28 02:45:48 [facility] Obesity (BMI 30.0-34.9) Obes ity (BMI 30.0-34.9) Active Problem 01/25/2018 Philippe Gibson Problem Active 16-01-28 02:45:48 [facility] Osteoarthritis, unspecified osteoarthritis type, unspe cified site Osteoarthritis, unspecified osteoarthritis type, unspecified site Active Problem 01/25/2018 Philippe Gibson Problem Active 16-01-28 02:45:48 [facility] Family history of abdominal aortic aneurysm (AAA) Family history of abdominal aortic aneurysm (AAA) Active Problem 01/25/2018 Philippe Gibson Problem Active 2018-01-25 02:45:48 Armando Cárdenas Former smoker Form er smoker Active Problem 01/25/2018 Philippe Gibson Problem Active 2018-01-25 02:45:48 John Cárdenas Dyspnea, unspecified type Dysp kobi, unspecified type Active Problem 01/25/2018 Philippe Gibson Problem Active 16-01-28 02:45:48 [facility] Preoperative cardiovascular examination Preoperative cardiovascular examination Active Problem 01/25/2018 Philippe Gibson Problem Active 2018-01-25 02:45:48 Daniel Cárdenas 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 Active Problem 01/25/2018 Philippe Gibson Problem Active 2018-01-25 02:45:48 [facility] Fatigue Fati shane Active Diagnosis 12/19/2017 Keegan Ingram Diagnosis Active 2017-12-19 02:46:26 [facility] Encounter for screening for other viral diseases Encounter for screening for other viral diseases Active Diagnosis 09/02/2019 Keegan Ingram Diagnosis Active 2019-09-02 03:46:32 [facility] FDC (current) use of opiate analgesic FDC (current) use of opiate analgesic Active Diagnosis 09/02/2019 Keegan Ingram Diagnosis Active 2019-09-02 03:46:32 [facility] Encounter for screening for other bacterial diseases Encounter for screening for other bacterial diseases Active Diagnosis 09/02/2019 Keegan Ingram Diagnosis Active 2019-09-02 03:46:32 [facility] Screening for tuberculosis Scr eening for tuberculosis Active Diagnosis 09/02/2019 Keegan Ingram Diagnosis Active 2019-09-02 03:46:32 [facility] Chronic pain [employer] juwan pain Active Problem 04/24/2020 Keegan Ingram Problem Active 2020-04-24 02:45:06 [facility] Immunocompromised state Immu nocompromised state Active Problem 04/24/2020 Keegan Ingram Problem Active 2020-04-24 02 :45:06 [facility] Allergies, Adverse Reactions, Alerts Allergy Name Allergy Type Status Severity Reaction(s) Onset Date Inacti ve Date Treating Clinician Comments Source Remicade Remicade Active Info Not Available 2020-04-14 00:00:00 [facility] Mirapex Mirapex Active nausea/emesis 2020-04-14 00:00:00 [facility] latex DA Active U 2019-01-21 00:00:00 [facility] Latex Allergy to substance Active RASH 2017-06-28 00:00:00 [facility] N.GladisA. Cora Active Info Not Available 2017-02-28 00:00:00 [facility] latex DA Active U 2013-02-17 00:00:00 [facility] Latex Gloves Adverse Reaction Active Info Not Available [facility] Family History Family Member Diagnosis Comments Start Date Stop Date Source 33 FATHER Family history of arterial aneurysm [facility] 32 MOTHER Family history of arterial aneurysm [facility] 09 SISTER Family history of neuropathy [facility] Social History Social Habit Start Date Stop Date Quantity Comments Source Sex Assigned At 1935 00:00:00 1935 00:00:00 Male [facility] Smoking Status Start Date Stop Date Source Never smoker [facility] ([facility]IZAIAH/SA) Medications Ordered Medication Name Filled Medication Name Start Date Stop Da te Current Medication? Ordering Clinician Indication Dosage Frequency Signature (SIG) Comments Components Source Medrol Dose Davis 2020-04-22 00:00:00 Yes Gregory Ingram as directed [facility] Nexium 2020-04-19 02:46:07 Yes Milad Rodriguez TAKE ONE CAPSULE BY MOUTH EVERY DAY [facility] Atenolol 2020-04-19 02:46:07 Yes Milad Rodriguez 1 t ablet [facility] Gabapentin 2020-04-19 02:46:07 Yes Milad Rodriguez 1 tablet [facility] Vitamin D 2020-04-19 02:46:07 Yes Milad Rodriguez 1 tablet [facility] Tylenol/Codeine #3 2020-04-14 00:00:00 Yes Milad Rodriguez 1 tablet as needed [facility] Chlordiazepoxide HCl 2020-04-14 00:00:00 Yes Milad Rodriguez 1 capsule [facility] Tramadol HCl 2019-08-20 00:00:00 Yes Maria E Martines 1 tablet as needed [facility] Medrol Dose Davis 2018-12-01 00:00:00 Yes Wajeeha Clau as directed [facility] Chlordiazepoxide HCl 2018-09-09 00:00:00 Yes Maria E Martines 1 capsule [facility] Chlordiazepoxide HCl 2018-08-12 00:00:00 Yes Wazulaya Clau 1 capsule [facility] PredniSONE 2018-08-05 00:00:00 Yes Evaristo Botellosaf 1-2 tabs prn for arthritis flare up [facility] Zofran 2018-08-05 00:00:00 Yes Milad Rodriguez 1 tab let [facility] Nasacort Nasacort 2018-07-31 00:00:00 Yes Duane Mcdonnell 2 puffs in each nostril [facility] Ofloxacin Ofloxacin 2018-07-31 00:00:00 2018-08-06 00:00:00 No Jayla Mcdonnell 4 drops into affected ear [facility] Gabapentin 2018-06-17 02:46:27 Yes Evaristo Rolonf 1 tablet [facility] Tylenol/Codeine #3 2018-06-10 00:00:00 Yes Maria E Martines 1 tablet as needed [facility] Meclizine HCl 2018-06-10 00:00:00 Yes Milad Rodriguez 1 tablet as needed [facility] Atenolol 2018-01-25 02:45:48 Yes Philippe Jeroudi 1 tablet [facility] Azelastine HCl 2018-01-25 02:45:48 Yes Philippe Jeroudi 1 puff in each nostril [facility] Hydrocodone-Acetaminophen 2018-01-25 02:45:48 Yes Chasidyame d Jeroudi 1 tablet as needed [facility] Omeprazole 2018-01-25 02:45:48 Yes Mohamed Jeroudi 1 capsule [facility] Triamterene-HCTZ 2018-01-25 02:45:48 Yes Mohamed Jeroudi 1 tablet in the morning [facility] Gabapentin 2018-01-25 02:45:48 Yes Mohamed Jeroudi 1 tablet [facility] Asmanex 14 Metered Doses 2018-01-25 02:45:48 Yes Mohamed Jeroudi 1 puff in the evening [facility] Pramipexole Dihydrochloride 2018-01-25 02:45:48 Yes Moha med Jeroudi 1 tablet before bedtime [facility] Stiolto Respimat 2018-01-25 02:45:48 Yes Mohamed Jeroudi 2 puffs [facility] Vitamin D (Ergocalciferol) 2017-12-17 00:00:00 Yes Gretta Ingram 1 capsule [facility] Ciprodex Ciprodex 2017-12-11 00:00:00 Yes Duane Mcdonnell not defined [facility] Simponi Aria 2017-09-02 00:00:00 Yes Milad Rodriguez as directed [facility] PredniSONE 2017-08-20 00:00:00 Yes Gregory Ingram 1-2 tabs PRN [facility] PredniSONE 2017-08-20 00:00:00 Yes Evaristo Clau 1-2 tabs PRN [facility] Atenolol 2017-07-23 02:45:17 Yes Mohamed Jeroudi 1 tablet [facility] Gabapentin 2017-07-23 02:45:17 Yes Mohamed Jeroudi 1 tablet [facility] Pramipexole Dihydrochloride 2017-07-23 02:45:17 Yes Moha med Jeroudi 1 tablet before bedtime [facility] Triamterene-HCTZ 2017-07-23 02:45:17 Yes Mohamed Jeroudi 1 tablet in the morning [facility] Omeprazole 2017-07-23 02:45:17 Yes Mohamed Jeroudi 1 capsule [facility] Azelastine HCl 2017-07-23 02:45:17 Yes Mohamed Jeroudi 1 puff in each nostril [facility] Asmanex 14 Metered Doses 2017-07-23 02:45:17 Yes Mohamed Jeroudi 1 puff in the evening [facility] Hydrocodone-Acetaminophen 2017-07-23 02:45:17 Yes Mohame d Jeroudi 1 tablet as needed [facility] Stiolto Respimat 2017-07-23 02:45:17 Yes Philippe Gibson 2 puffs [facility] Ranitidine HCl Ranitidine HCl 2017-07-16 00:00:00 Yes Duane Calero tton 1 tablet [facility] Tylenol/Codeine #3 2016-12-28 00:00:00 Yes Evaristo Rolon f 1 tablet as needed [facility] Acetaminophen 300 MG / Codeine Phosphate 60 MG Oral Ta blet Acetaminophen 300 MG / Codeine Phosphate 60 MG Oral Tablet Yes 1tab QID [facility] ([facility]/IZAIAH/SA) Gabapentin Gabapentin Yes Duane Mcdonnell not defin ed [facility] Atenolol 50 MG Oral Tablet Atenolol 50 MG Oral Tablet Yes 50mg [facility] ([facility]/IZAIAH/SA) Triamterene Triamterene Yes Duane Mcdonnell not def ined [facility] gabapentin 600 MG Oral Tablet gabapentin 600 MG Oral Tablet Yes 600mg TID [facility] ([facility]/IZAIAH/SA) Atenolol Atenolol Yes Duane Mcdonnell not defined [facility] Acetamin Acetamin Yes Duane Mcdonnell not defined [facility] Acetaminophen With Codeine (Acetaminophen-Codeine Elix ir) 118 Ml ELIXIR Acetaminophen With Codeine (Acetaminophen-Codeine Elixir) 118 Ml ELIXIR Yes [facility] Atenolol Atenolol Yes 50 Daily [facility] Chlordiazepoxide Hcl Chlordiazepoxide Hcl Yes [facility] Gabapentin Gabapentin Yes 600 Daily [facility] Pantoprazole Sodium (Protonix) 40 Mg TABLET. Pantopr azole Sodium (Protonix) 40 Mg TABLET. Yes 40 Daily [facility] Ropinirole Hcl Ropinirole Hcl Yes 1 Three Time s A Day [facility] Spironolactone Spironolactone Yes [facility] Azithromycin (Z-Davis) 250 Mg TABLET Azithromycin (Z-Davis) 250 Mg T ABLET 2020-06-23 00:00:00 No 250 Use As Directed [facility] Ondansetron Ondansetron 2020-06-23 00:00:00 No [facility] Smz/Tmp Smz/Tmp 2020-06-23 00:00:00 No [facility] Gabapentin Gabapentin 2019-05-15 00:00:00 No 600 Thr ee Times A Day [facility] Ropinirole Hcl Ropinirole Hcl 2019-05-15 00:00:00 No .5 Bedtime [facility] Meclizine Hcl Meclizine Hcl 2019-03-11 00:00:00 No 25 Daily [facility] Pramipexole Di-Hcl (Pramipexole Dihydrochloride) 0.25 Mg TABLET Pramipexole Di- Hcl (Pramipexole Dihydrochloride) 0.25 Mg TABLET 2019-03-11 00:00:00 No .5 Twice A Day [facility] Triamterene/Hctz Triamterene/Hctz 2019-03-11 00:00:00 No Daily [facility] Vital Signs Vital Name Observation Time Observation Value Comments Source Body Temperature 2020-06-25 15:43:00 98.8 [degF] [facility] Weight 2020-06-23 12:43:00 229.04 [lb_av] [facility] BMI (Body Mass Index) 2020-06-23 12:43:00 31.9 kg/m2 [facility] Body Temperature 2020-06-10 09:19:00 97.0 [degF] [facility] BMI (Body Mass Index) 2020-06-09 01:00:00 28.9 kg/m2 [facility] Weight 2020-06-08 17:30:00 213 [lb_av] [facility] Body Temperature 2020-05-20 19:48:00 98.4 [degF] [facility] Weight 2020-05-20 15:27:00 210 [lb_av] [facility] BMI (Body Mass Index) 2020-05-20 15:27:00 30.1 kg/m2 [facility] Weight 2020-04-14 20:00:00 [facility] Height 2020-04-14 20:00:00 [facility] Temperature Oral (F) 2020-04-14 20:00:00 97.9 F [facility] Heart Rate 2020-04-14 20:00:00 [facility] Diastolic (mm Hg) 2020-04-14 20:00:00 [facility] Systolic (mm Hg) 2020-04-14 20:00:00 Armando rial [facility] Weight 2019-08-20 20:30:00 [facility] Height 2019-08-20 20:30:00 [facility] Temperature Oral (F) 2019-08-20 20:30:00 97.7 F [facility] Heart Rate 2019-08-20 20:30:00 [facility] Diastolic (mm Hg) 2019-08-20 20:30:00 [facility] Systolic (mm Hg) 2019-08-20 20:30:00 [facility]ando [facility] Weight 2019-06-16 18:45:00 [facility] Height 2019-06-16 18:45:00 [facility] Temperature Oral (F) 2019-06-16 18:45:00 98.9 F [facility] Heart Rate 2019-06-16 18:45:00 [facility] Diastolic (mm Hg) 2019-06-16 18:45:00 [facility] Systolic (mm Hg) 2019-06-16 18:45:00 Armando rial [facility] Weight 2019-01-05 16:45:00 [facility] Height 2019-01-05 16:45:00 [facility] Temperature Oral (F) 2019-01-05 16:45:00 96.8 F [facility] Heart Rate 2019-01-05 16:45:00 [facility] Diastolic (mm Hg) 2019-01-05 16:45:00 [facility] Systolic (mm Hg) 2019-01-05 16:45:00 Armando rial [facility] Weight 2018-11-07 16:15:00 [facility] Height 2018-11-07 16:15:00 [facility] Temperature Oral (F) 2018-11-07 16:15:00 96.6 F [facility] Heart Rate 2018-11-07 16:15:00 [facility] Diastolic (mm Hg) 2018-11-07 16:15:00 [facility] Systolic (mm Hg) 2018-11-07 16:15:00 Armando rial [facility]vi Weight 2018-11-04 19:15:00 [facility] Height 2018-11-04 19:15:00 [facility] Temperature Oral (F) 2018-11-04 19:15:00 98.0 F [facility] Heart Rate 2018-11-04 19:15:00 [facility] Diastolic (mm Hg) 2018-11-04 19:15:00 [facility] Systolic (mm Hg) 2018-11-04 19:15:00 Armando rial [facility] Weight 2018-09-09 19:00:00 [facility] Height 2018-09-09 19:00:00 [facility] Temperature Oral (F) 2018-09-09 19:00:00 98.8 F [facility] Heart Rate 2018-09-09 19:00:00 [facility] Diastolic (mm Hg) 2018-09-09 19:00:00 [facility] Systolic (mm Hg) 2018-09-09 19:00:00 [facility]ando [facility] Weight 2018-08-12 21:00:00 [facility] Height 2018-08-12 21:00:00 [facility] Temperature Oral (F) 2018-08-12 21:00:00 97.2 F [facility] Heart Rate 2018-08-12 21:00:00 [facility] Diastolic (mm Hg) 2018-08-12 21:00:00 [facility] Systolic (mm Hg) 2018-08-12 21:00:00 Armando rial [facility] Weight 2018-08-05 19:00:00 [facility] Height 2018-08-05 19:00:00 [facility] Temperature Oral (F) 2018-08-05 19:00:00 98.5 F [facility] Heart Rate 2018-08-05 19:00:00 [facility] Diastolic (mm Hg) 2018-08-05 19:00:00 [facility] Systolic (mm Hg) 2018-08-05 19:00:00 Armando rial [facility]vi Weight 2018-06-10 18:30:00 [facility] Height 2018-06-10 18:30:00 [facility] Temperature Oral (F) 2018-06-10 18:30:00 97.0 F [facility] Heart Rate 2018-06-10 18:30:00 [facility] Diastolic (mm Hg) 2018-06-10 18:30:00 [facility] Systolic (mm Hg) 2018-06-10 18:30:00 [facility] Body Temperature 2018-02-22 12:32:00 98.2 F [facility] (LUF/IZAIAH/SA) Respiratory Rate 2018-02-22 12:32:00 20 /min [facility] (LUF/IZAIAH/SA) O2% BldC Oximetry 2018-02-22 12:32:00 98 % [facility] (LUF/IZAIAH/SA) BP Systolic 2018-02-22 12:32:00 128 mm[Hg] [facility] (LUF/IZAIAH/SA) BP Diastolic 2018-02-22 12:32:00 71 mm[Hg] [facility] (LUF/IZAIAH/SA) Height 2018-02-22 12:32:00 71 in [facility] (LUF/IZAIAH/SA) Weight Measured 2018-02-22 12:32:00 237 lbs [facility] (LUF/IZAIAH/SA) BMI (Body Mass Index) 2018-02-22 12:32:00 33.1 [facility] (LUF/IZAIAH/SA) Weight 2018-02-13 18:15:00 [facility] Height 2018-02-13 18:15:00 [facility] Temperature Oral (F) 2018-02-13 18:15:00 97.3 F [facility] Heart Rate 2018-02-13 18:15:00 [facility] Diastolic (mm Hg) 2018-02-13 18:15:00 [facility] Systolic (mm Hg) 2018-02-13 18:15:00 Armando rial Avi Weight 2017-12-16 20:00:00 [facility] Height 2017-12-16 20:00:00 [facility] Temperature Oral (F) 2017-12-16 20:00:00 98.2 F [facility] Heart Rate 2017-12-16 20:00:00 [facility] Diastolic (mm Hg) 2017-12-16 20:00:00 [facility] Systolic (mm Hg) 2017-12-16 20:00:00 Armando rial [facility] Weight 2017-10-21 21:30:00 [facility] Height 2017-10-21 21:30:00 [facility] Temperature Oral (F) 2017-10-21 21:30:00 99.0 F [facility] Heart Rate 2017-10-21 21:30:00 [facility] Diastolic (mm Hg) 2017-10-21 21:30:00 [facility] Systolic (mm Hg) 2017-10-21 21:30:00 Armando rial [facility]ann Weight 2017-02-28 18:00:00 [facility] Height 2017-02-28 18:00:00 [facility] Temperature Oral (F) 2017-02-28 18:00:00 97.3 F [facility] Heart Rate 2017-02-28 18:00:00 [facility] Diastolic (mm Hg) 2017-02-28 18:00:00 [facility] Systolic (mm Hg) 2017-02-28 18:00:00 Armando rial Avi Weight 2017-01-31 20:00:00 [facility] Height 2017-01-31 20:00:00 [facility] Temperature Oral (F) 2017-01-31 20:00:00 97.6 F [facility] Heart Rate 2017-01-31 20:00:00 [facility] Diastolic (mm Hg) 2017-01-31 20:00:00 [facility] Systolic (mm Hg) 2017-01-31 20:00:00 Armando rial [facility]ann Weight 2017-01-16 20:30:00 [facility] Height 2017-01-16 20:30:00 [facility] Temperature Oral (F) 2017-01-16 20:30:00 98.0 F [facility] Heart Rate 2017-01-16 20:30:00 [facility] Diastolic (mm Hg) 2017-01-16 20:30:00 [facility] Systolic (mm Hg) 2017-01-16 20:30:00 [facility] Procedures Procedure Date / Time Performed Performing Clinician [facility] e X-ray of chest, two views 2020-06-24 00:00:00 [facility] CT of abdomen and pelvis without contrast 2020-05-20 00:00:00 [facility] Computed tomography of abdomen and pelvis with contrast 00:00:00 [facility] Computed tomography of brain without radiopaque contrast 2020-03 00:00:00 [facility] Plan of Care Planned Activity Planned Date Details Comments Source Instructions Pneumonia - Bacterial [facility] Instructions Weakness (Generalized) [facility] Encounters Start Date/Time End Date/Time Encounter Type Admission Type [facility] Care Department Encounter ID Source 2020-06-08 21:24:00 2020-06-10 11:01:00 Discharged Inpatient (obs) 1 RACQUEL DELGADO [facility] [id number] [facility] 2020-05-20 17:40:00 2020-05-20 20:15:00 Departed Emergency Room PER AU [facility] [id number] [facility] 2020-05-12 16:56:00 2020-05-12 16:56:00 Registered Clinic 3 NIECY ARZOLA [facility] [id number] [facility] 2020-05-11 17:07:00 2020-05-11 17:07:00 Registered Clinic 3 KLAUDIA ARZOLA [facility] [id number] [facility] 2020-04-22 09:51:00 2020-04-22 09:51:00 Outpatient Gregory CALERO [id number] Keegan Ingram MD 2020-04-14 15:00:00 2020-04-14 15:00:00 Outpatient Gregory Ingram MD [place] [id number] Keegan Ingram MD 2020-04-01 12:13:00 2020-04-02 21:44:00 Discharged Inpatient 1 AG JACOBSEN [facility] [id number] [facility] 2020-03-16 13:53:00 2020-03-16 15:50:00 Departed Emergency Room [facility] [id number] [facility] 2020-03-14 13:57:00 2020-03-14 13:57:00 Outpatient Gregory Ingram MD [place] [id number] Keegan Ingram MD 2020-03-13 16:51:00 2020-03-14 00:05:00 Departed Emergency Room 1 PER AU [facility] [id number] [facility] 2019-11-09 15:05:00 2019-11-09 15:05:00 Outpatient MD GALILEA Cazares MD [place] [id number] Keegan Ingram MD 2019-10-28 16:53:00 2019-10-28 16:53:00 Outpatient MD GALILEA Cazares MD [place] [id number] Keegan Ingram MD 2019-08-20 14:53:00 2019-08-20 14:53:00 Outpatient MD GALILEA Cazares MD [place] [id number] Keegan Ingram MD 2019-08-20 14:30:00 2019-08-20 14:30:00 Outpatient Gregory Ingram MD PA [id number] Keegan Ingram MD 2019-06-16 13:45:00 2019-06-16 13:45:00 Outpatient Gregory Ingram MD PA [id number] MIRACLE Ingram MD 2019-06-03 12:40:00 2019-06-03 12:40:00 Outpatient MD GALILEA Villa MD [place] [id number] MIRACLE Ingram MD 2019-05-20 11:17:00 2019-05-20 11:17:00 Outpatient Gregory Ingram MD [place] [id number] Keegan Ingram MD 2019-05-14 02:17:00 2019-05-15 18:35:00 Discharged Inpatient (obs) 1 [facility] [id number] [facility] 2019-03-30 14:59:00 2019-03-30 14:59:00 Outpatient Gregory CALERO [id number] Keegan Ingram MD 2019-03-17 07:14:00 2019-03-17 07:14:00 Registered Surgical Day Car e [facility]A [facility] [id number] [facility] 2019-03-04 16:27:00 2019-03-04 16:27:00 Outpatient Gregory Ingram MD PA [id number] Keegan Ingram MD 2019-01-08 10:55:00 2019-01-08 10:55:00 Outpatient [facility] [id number] [facility] 2019-01-05 11:45:00 2019-01-05 11:45:00 Outpatient Gregory Ingram MD PA [id number] Keegan Ingram MD 2018-12-01 16:00:00 2018-12-01 16:00:00 Outpatient Gregory Ingram MD PA [id number] Keegan Ingram MD 2018-11-28 13:18:00 2018-11-28 13:18:00 Outpatient Gregory Ingram MD PA [id number] Keegan Ingram MD 2018-11-07 10:15:00 2018-11-07 10:15:00 Outpatient Gregory Ingram MD PA [id number] Keegan Ingram MD 2018-11-04 13:15:00 2018-11-04 13:15:00 Outpatient Gregory Ingram MD PA [id number] Keegan Ingram MD 2018-09-09 13:00:00 2018-09-09 13:00:00 Outpatient Gregory Ingram MD PA [id number] Keegan Ingram MD 2018-08-26 14:53:00 2018-08-26 14:53:00 Outpatient Gregory CALERO [id number] Keegan Ingram MD 2018-08-12 15:00:00 2018-08-12 15:00:00 Outpatient Gregory CALERO [id number] Keegan Ingram MD 2018-08-05 13:00:00 2018-08-05 13:00:00 Outpatient Gregory CALERO [id number] Keegan Ingram MD 2018-07-31 10:00:00 2018-07-31 10:00:00 [facility] P [id number] [facility] 2018-07-30 15:49:00 2018-07-30 15:49:00 [facility] [id number] [facility] 2018-06-23 18:55:00 2018-06-23 18:55:00 [facility] [id number] [facility] 2018-06-10 14:46:00 2018-06-10 14:46:00 Outpatient Gregory CALERO [id number] Keegan Ingram MD 2018-06-10 13:30:00 2018-06-10 13:30:00 Outpatient Gregory CALERO [id number] Keegan Ingram MD 2018-02-22 12:13:00 2018-02-22 14:30:00 FX 1 RIB LT SIDE INITIAL CL OS FX 1 JOE EASLEY [facility], [address] [place] [address] , [place] [address] [facility] [id number] [facility] (LUF /IZAIAH/SA) 2018-02-13 13:15:00 2018-02-13 13:15:00 Outpatient Gregory Ingram MD PA [id number] Keegan Ingram MD 2018-02-11 15:39:00 2018-02-11 15:39:00 Outpatient Gregory Ingram MD PA [id number] Keegan Ingram MD 2017-12-17 12:56:00 2017-12-17 12:56:00 Outpatient Gregory CALERO [id number] Keegan Ingram MD 2017-12-16 15:00:00 2017-12-16 15:00:00 Outpatient Gregory Ingram MD PA [id number] Keegan Ingram MD 2017-12-11 13:20:00 2017-12-11 13:20:00 [facility]patient [facility] [id number] [facility] 2017-12-04 13:00:00 2017-12-04 13:00:00 Outpatient [facility] [id number] [facility] 2017-10-22 08:34:00 2017-10-22 08:34:00 Outpatient Gregory Ingram MD PA [id number] Keegan Ingram MD 2017-10-21 15:30:00 2017-10-21 15:30:00 Outpatient Gregory Ingram MD PA [id number] Keegan Ingram MD 2017-02-28 13:00:00 2017-02-28 13:00:00 Outpatient Philippe Gibson MD PA [id number] [employer] 2017-02-12 11:00:00 2017-02-12 11:00:00 Outpatient Philippe Gibson MD PA [id number] [employer] 2017-01-31 15:00:00 2017-01-31 15:00:00 Outpatient Philippe Gibson MD PA [id number] [employer] 2017-01-16 15:30:00 2017-01-16 15:30:00 Outpatient Philippe Gibson MD PA [id number] [employer] Results Test Description Test Time Test Comments Results Result Comments Source Blood leukocytes automated count (number/volume) 2020-06-25 05:30:00 Test Item White Blood Count (test code = 6690-2) 6.73 4.8-10.8 [facility] count (number/volume)2020-06-25 05:30:00* Test Item Value Reference Range Interpretation Comments Red Blood Count (test code = 789-8) 4.04 4.3-5.7 [facility] hemoglobin measurement (moles/volume)2020-06-25 05:30:00* Test Item Value Reference Range Interpretation Comments Hemoglobin (test code = 78611-3) 12.0 14.0-18.0 [facility] blood hematocrit (volume fraction)2020-06-25 05:30:00* Test Item Value Reference Range Interpretation Comments Hematocrit (test code = 4544-3) 37.1 38.2-49.6 [facility]Autom[facility] erythrocyte mean corpuscular kqxsaj5579-73-11 05:30:00* Test Item Value Reference Range Interpretation Comments Mean Corpuscular Volume (test code = 787-2) 91.8 81-99 [facility] HospitalAutomated erythrocyte mean corpuscular hemoglobin (mass per erythrocyte)2020-06-25 05:30:00* Test Item Value Reference Range Interpretation Comments Mean Corpuscular Hemoglobin (test code = 785-6) 29.7 28-32 [facility]Autom[facility] erythrocyte mean corpuscular hemoglobin concentration measurement (mass/volume)2020-06-25 05:30:00* Test Item Value Reference Range Interpretation Comments Mean Corpuscular Hemoglobin Concent (test code = 786-4) 32.3 31-35 [facility] HospitalRDW HnrDk-Plz1653-25-26 05:30:00* Test Item Value Reference Range Interpretation Comments Red Cell Distribution Width (test code = 87942-5) 13.7 11.7 -14.4 [facility] HospitalAutomated blood platelet count (count/volume)2020-06-25 05:30:00* Test Item Value Reference Range Interpretation Comments Platelet Count (test code = 777-3) 151 140-360 [facility] HospitalAutom[facility] blood segmented neutrophil count as percentage of total typekzeyow2602-44-23 05:30:00* Test Item Value Reference Range Interpretation Comments Neutrophils (%) (Auto) (test code = 89951-0) 56.7 38.7-80.0 [facility] HospitalAutom[facility] blood lymphocyte count as percentage ot total uvoalpnpoc8660-01-61 05:30:00* Test Item Value Reference Range Interpretation Comments Lymphocytes (%) (Auto) (test code = 736-9) 29.1 18.0-39.1 [facility] HospitalAutomated blood monocyte count as percentage of total otnlypcqjw1704-48-78 05:30:00* Test Item Value Reference Range Interpretation Comments Monocytes (%) (Auto) (test code = 5905-5) 11.4 4.4-11.3 [facility] HospitalAutwake forest [facility] hospitaled blood eosinophil count as percentage of total lrcpcykeix7378-96-42 05:30:00* Test Item Value Reference Range Interpretation Comments Eosinophils (%) (Auto) (test code = 713-8) 1.9 0.0-6.0 [facility] HospitalAutomated blood basophil count as percentage of total aktzogjuai3374-03-72 05:30:00* Test Item Value Reference Range Interpretation Comments Basophils (%) (Auto) (test code = 706-2) 0.6 0.0-1.0 [facility] HospitalFluoroscopic procedure less than one hour uftmzchk9799-67-55 05:30:00* Test Item Value Reference Range Interpretation Comments IM GRANULOCYTES % (test code = IM GRANULOCYTES %) 0.3 0.0- 1.0 [facility] HospitalAutomated blood neutrophil count 2020-06-25 05:30:00* Test Item Value Reference Range Interpretation Comments Neutrophils # (Auto) (test code = 751-8) 3.8 2.1-6.9 [facility] Hospital[facility] lymphocytes count (number/volume) 2020-06-25 05:30:00* Test Item Value Reference Range Interpretation Comments Lymphocytes # (Auto) (test code = 35170-7) 2.0 1.0-3.2 [facility] HospitalBlood monocytes automated count (number/volume)2020-06-25 05:30:00* Test Item Value Reference Range Interpretation Comments Monocytes # (Auto) (test code = 742-7) 0.8 0.2-0.8 [facility] HospitalAutomated blood eosinophil count 2020-06-25 05:30:00* Test Item Value Reference Range Interpretation Comments Eosinophils # (Auto) (test code = 711-2) 0.1 0.0-0.4 [facility] HospitalAutomated blood basophil count (count/volume)2020-06-25 05:30:00* Test Item Value Reference Range Interpretation Comments Basophils # (Auto) (test code = 704-7) 0.0 0.0-0.1 [facility] HospitalFluoroscopic procedure less than one hour glvhsccu3905-26-38 05:30:00* Test Item Value Reference Range Interpretation Comments Absolute Immature Granulocyte (auto (faye t code = Absolute Immature Granulocyte (auto) 0.02 0-0.1 [facility] sodium measurement (moles/volume)2020-06-25 05:30:00* Test Item Value Reference Range Interpretation Comments Sodium Level (test code = 2951-2) 142 136-145 [facility]um or plasma potassium measurement (moles/volume)2020-06-25 05:30:00* Test Item Value Reference Range Interpretation Comments Potassium Level (test code = 2823-3) 3.5 3.5-5.1 [facility] or plasma chloride measurement (moles/volume)2020-06-25 05:30:00* Test Item Value Reference Range Interpretation Comments Chloride Level (test code = 2075-0) 111 98-107 [facility]erum or plasma carbon dioxide, total measurement (moles/volume)2020-06-25 05:30:00* Test Item Value Reference Range Interpretation Comments Carbon Dioxide Level (test code = 2028-9) 24 22-29 [facility] or plasma anion pzc9168-99-55 05:30:00* Test Item Value Reference Range Interpretation Comments Anion Gap (test code = 72337-9) 10.5 8-16 [facility] or plasma urea nitrogen measurement (mass/volume)2020-06-25 05:30:00* Test Item Value Reference Range Interpretation Comments Blood Urea Nitrogen (test code = 3094-0) 8 7- [facility]um or plasma creatinine measurement (mass/volume)2020-06-25 05:30:00* Test Item Value Reference Range Interpretation Comments Creatinine (test code = 2160-0) 0.86 0.72-1.25 [facility] or plasma urea nitrogen/creatinine mass ffulv1876-76-23 05:30:00* Test Item Value Reference Range Interpretation Comments BUN/Creatinine Ratio (test code = 3097-3) 9 03-24 [facility] HospitalEstimated glomerular filtration rate (GFR) soadttwmzrzus7560-95-61 05:30:00* Test Item Value Reference Range Interpretation Comments Estimat Glomerular Filtration Rate (test code = 487701537) > 60 >60 Ranges were taken from the National Kidney Disease Education Program and the [facility] Kidney Foundation literature.Reference ranges:60 or greater: Rdcmnm91-97 ( for 3 consecutive months): Chronic kidney disease 15 or less: Kidney failurePalo [facility]into General HospitalGlucose zazffkpbrph8501-56-76 05:30:00* Test Item Value Reference Range Interpretation Comments Glucose Level (test code = XBY1879) 89 74-118 [facility] or plasma calcium measurement (mass/volume)2020-06-25 05:30:00* Test Item Value Reference Range Interpretation Comments Calcium Level (test code = 27200-9) 8.1 8.4-10.2 [facility]viewerum or plasma trough vancomycin level at trough (mass/volume)2020-06-24 15:43:00* Test Item Value Reference Range Interpretation Comments Vancomycin Level Trough (test code = 4092-3) 11.0 5.0-10.0 Results repeated and called to OXANA MCKEON RN at 1626 on 06/24/20 by Morgan Arzola. Read back and verified.[facility] HospitalCHEST 2 CAPPU3617-70-99 11:37:00 [facility] [address] [address] Patient Name: NOEMY ARGUETA MR #: [id number] : 1935 Age/Sex: 85/M Req #: [id number] Adm Physician: KLAUDIA ARZOLA MD Ordered by: KLAUDIA ARZOLA MD Report #: [id number] Location: MED/SURG2 Room/Bed: [facility] Procedure: [id number] DX/CHEST 2 VIE WS Exam Date: 06/24/20 Exam Time: 1108 REPORT STATUS: Signed Exam: CHEST 2 VIEWS D ate: 06/24/2020 11:37 AM INDICATION: PNA Comparison: 06/22/2020 FINDINGS: Lines/Tubes:Overlying EKG leads are noted. Lungs:Lungs are well expanded. Previously identified patchy airspace opacities at the lung bas es have improved. Negative for focal lobar consolidation. Pleura:No pleural effusion. No pneumothorax. Heart/Mediastinum:The cardiomediastinal silhoue tte is normal in size and contour. Bones/Soft Tissues: No acute osseous a bnormality. Upper abdomen: Unremarkable. IMPRESSION: New complete resolution of the linear patchy opacities at the lung bases which probably re lated to atelectasis. No focal consolidation is identified. Signed by: Gina Aguillon MD on 06/24/2020 11:39 AM Dictated By: STAR AGUILLON MD Electron ically Signed By: STAR AGUILLON MD on 06/24/20 113 Transcribed By: APOORVA on 06/24/201138 COPY TO: KLAUDIA ARZOLA MD Serum or plasma creatine kinase measurement (enzymatic activity/volume)2020-06-23 10:30:00* Test Item Value Reference Range Interpretation Comments Creatine Kinase (test code = 2157-6) 69 30-200 [facility]um or plasma creatine kinase MB measurement (mass/volume)2020-06-23 10:30:00* Test Item Value Reference Range Interpretation Comments Creatine Kinase MB (test code = 83427-9) 2.50 0-5.0 [facility] HospitalTroponin I measurement by highly sensitive enzyme eraylinhbch0036-98-56 10:30:00* Test Item Value Reference Range Interpretation Comments Troponin I (test code = 08903-6) 0.015 0-0.300 [facility] or plasma total bilirubin measurement (mass/volume)2020-06-23 06:20:00* Test Item Value Reference Range Interpretation Comments Total Bilirubin (test code = 1975-2) 0.6 0.2-1.2 [facility] HospitalFluoroscopic procedure less than one hour mcjfcraz8507-46-67 06:20:00* Test Item Value Reference Range Interpretation Comments Aspartate Amino Transf (AST/SGOT) (test code = Aspartate Amino Transf (AST/SGOT)) 15 5-34 [facility]um or plasma alanine aminotransferase measurement (enzymatic activity/volume)2020-06-23 06:20:00* Test Item Value Reference Range Interpretation Comments Alanine Aminotransferase (ALT/SGPT) (test code = 1742-6) 12 0-55 [facility] or plasma protein measurement (mass/volume)2020-06-23 06:20:00* Test Item Value Reference Range Interpretation Comments Total Protein (test code = 2885-2) 5.7 6.5-8.1 [facility] or plasma albumin measurement (mass/volume)2020-06-23 06:20:00* Test Item Value Reference Range Interpretation Comments Albumin (test code = 1751-7) 3.3 3.5-5.0 [facility] HospitalPlasma globulin measurement (mass/volume) 2020-06-23 06:20:00* Test Item Value Reference Range Interpretation Comments Globulin (test code = 06141-9) 2.4 2.3-3.5 [facility] or plasma albumin/globulin mass ocqke5492-81-11 06:20:00* Test Item Value Reference Range Interpretation Comments Albumin/Globulin Ratio (test code = 1759-0) 1.4 0.8-2.0 [facility] or plasma alkaline phosphatase measurement (enzymatic activity/volume)2020-06-23 06:20:00* Test Item Value Reference Range Interpretation Comments Alkaline Phosphatase (test code = 6768-6) 55 40-150 [facility] HospitalUrine color rwshpjbvqjatn0094-42-06 19:09:00* Test Item Value Reference Range Interpretation Comments Urine Color (test code = 5778-6) YELLOW YELLOW [facility] HospitalUrine qfrjrss0084-68-58 19:09:00* Test Item Value Reference Range Interpretation Comments Urine Clarity (test code = 80492-1) CLEAR CLEAR [facility]viewpecific gravity of Urine by Test strip 2020-06-22 19:09:00* Test Item Value Reference Range Interpretation Comments Urine Specific Jennings (test code = 5811-5) 1.010 1.010-1.02 5 [facility] HospitalU[facility] pH measurement by automated test nvpct5079-91-81 19:09:00* Test Item Value Reference Range Interpretation Comments Urine pH (test code = 85333-1) 5.5 5-7 [facility] HospitalUrine leukocyte esterase detection by pzecysvz0368-83-37 19:09:00* Test Item Value Reference Range Interpretation Comments Urine Leukocyte Esterase (test code = 5799-2) NEGATIVE NEGATIVE [facility] HospitalUrine nitrite tmtlezbfg2180-54-04 19:09:00* Test Item Value Reference Range Interpretation Comments Urine Nitrite (test code = 21183-6) NEGATIVE NEGATIVE [facility] HospitalUrine protein measurement by test strip (mass/volume)2020-06-22 19:09:00* Test Item Value Reference Range Interpretation Comments Urine Protein (test code = 5804-0) NEGATIVE NEGATIVE [facility] HospitalUrine glucose rdjkgvyko5367-46-49 19:09:00* Test Item Value Reference Range Interpretation Comments Urine Glucose (UA) (test code = 2349-9) NEGATIVE NEGATIVE [facility] HospitalUrine ketones detection by automated test tjamj9192-04-55 19:09:00* Test Item Value Reference Range Interpretation Comments Urine Ketones (test code = 36583-4) NEGATIVE NEGATIVE [facility] HospitalUrine urobilinogen measurement by test strip (mass/volume)2020-06-22 19:09:00* Test Item Value Reference Range Interpretation Comments Urine Urobilinogen (test code = 86709-4) 0.2 0.2-1 [facility] HospitalU[facility] total bilirubin measurement (mass/volume)2020-06-22 19:09:00* Test Item Value Reference Range Interpretation Comments Urine Bilirubin (test code = 1978-6) NEGATIVE NEGATIVE [facility] HospitalUrine erythrocytes hgvgxhsbn9706-49-86 19:09:00* Test Item Value Reference Range Interpretation Comments Urine Blood (test code = 81822-9) NEGATIVE NEGATIVE [facility] HospitalAutomated urine sediment leukocyte count by microscopy (number/high power field)2020-06-22 19:09:00* Test Item Value Reference Range Interpretation Comments Urine WBC (test code = 5821-4) NONE 0-5 [facility] HospitalErythrocytes detection in urine sediment by light uuvsilqtua5781-45-61 19:09:00* Test Item Value Reference Range Interpretation Comments Urine RBC (test code = 56106-8) NONE 0-5 [facility] HospitalBacteria detection in urine sediment by light hdlyywtsri1310-35-09 19:09:00* Test Item Value Reference Range Interpretation Comments Urine Bacteria (test code = 75038-2) NONE NONE [facility] HospitalEpithelial cells detection in urine sediment by light pjicjmoqny0560-96-37 19:09:00* Test Item Value Reference Range Interpretation Comments Urine Epithelial Cells (test code = 65293-2) RARE NONE [facility] HospitalCHEST SINGLE (PORTABLE)2020-06-22 17:05:00 [address] [address] Patient Name: NOEMY ARGUETA MR #: [id number] : 1935 Age/Sex: 85/M Req #: [id number] Adm Physician: Ordered by: PER AU MD Report #: [id number] Location: ER Room/Bed: Procedure: [id number] DX/CHEST SINGLE (PORTABLE) Exam Date: 06/22/20 Exam [...] AU MD Erythrocyte sedimentation rate by Westergren cytpka8916-11-01 15:55:00* Test Item Value Reference Range Interpretation Comments Erythrocyte Sedimentation Rate (test code = 4537-7) 18 0- 13 [facility] HospitalFluoroscopic procedure less than one hour vjlelmfo2733-70-34 15:55:00* Test Item Value Reference Range Interpretation [...] under 564(g) of the ACT.Testing performed by [facility] [place] [id number] [place], [place] [address]Prothrombin time (PT) in platelet poor plasma by coagulation nljle4706-36-66 15:19:00* Test Item Value Reference Range Interpretation Comments Prothrombin Time (test code = 5902-2) 13.8 11.9-14.5 [facility] HospitalINR in Platelet poor plasma by Coagulation zzmzz5773-54-37 15:19:00* Test Item Value Reference Range Interpretation Comments Prothromb Time International Ratio (test code = 6301-6) 1.01 Oral Anticoagulant Therapy INR Values:1. Low Intensity Therapy 1.5 - 2.02 . Moderate Intensity Therapy 2.0 - 3.03. High Intensity Therapy(1) 2.5 - 3. 54. High Intensity Therapy(2) 3.0 - 4.05. Panic Value INR > 5.0 [facility] HospitalActivated partial thromboplastin time (aPTT) in platelet poor plasma by coagulation cyjqf1311-25-77 15:19:00* Test Item Value Reference Range Interpretation Comments Activated Partial Thromboplast Time (test code = 21288-7) 28.3 23.8-35.5 [facility] HospitalFluoroscopic procedure less than one hour ojxnwvvg2097-86-95 15:19:00* Test Item Value Reference Range Interpretation Comments Lactic Acid Level (test code = Lactic Acid Level) 1.4 0.5- 2.0 [facility] HospitalBNP Yup-wCci2446-67-23 15:19:00* Test Item Value Reference Range Interpretation Comments B-Type Natriuretic Peptide (test code = 98704-9) 42.4 0-100 [facility] HospitalBlood fdmjorp9815-51-52 15:11:00* Test Item Value Reference Range Interpretation Comments Blood Culture (test code = 57127373) NO GROWTH AFTER 72 HOURS [facility] HospitalBacterial blood gltzzdi0731-69-71 15:11:00* Test Item Value Reference Range Interpretation Comments Blood Culture (test code = 600-7) STAPHYLOCOCCUS SP COAG NEG [facility] leukocytes automated count (number/volume)2020-06-10 05:35:00* Test Item Value Reference Range Interpretation Comments White Blood Count (test code = 6690-2) 5.95 4.8-10.8 [facility] erythrocytes automated count (number/volume)2020-06-10 05:35:00* Test Item Value Reference Range Interpretation Comments Red Blood Count (test code = 789-8) 3.85 4.3-5.7 [facility] hemoglobin measurement (moles/volume)2020-06-10 05:35:00* Test Item Value Reference Range Interpretation Comments Hemoglobin (test code = 99003-4) 11.5 14.0-18.0 [facility] HospitalAutomated blood hematocrit (volume fraction)2020-06-10 05:35:00* Test Item Value Reference Range Interpretation Comments Hematocrit (test code = 4544-3) 34.7 38.2-49.6 [facility] HospitalAutomated erythrocyte mean corpuscular lrdhnt4094-13-43 05:35:00* Test Item Value Reference Range Interpretation Comments Mean Corpuscular Volume (test code = 787-2) 90.1 81-99 [facility] HospitalAutomated erythrocyte mean corpuscular hemoglobin (mass per erythrocyte)2020-06-10 05:35:00* Test Item Value Reference Range Interpretation Comments Mean Corpuscular Hemoglobin (test code = 785-6) 29.9 28-32 [facility] HospitalAutomated erythrocyte mean corpuscular hemoglobin concentration measurement (mass/volume)2020-06-10 05:35:00* Test Item Value Reference Range Interpretation Comments Mean Corpuscular Hemoglobin Concent (test code = 786-4) 33.1 31-35 [facility] HospitalRDW CaiSd-Wpx3372-62-11 05:35:00* Test Item Value Reference Range Interpretation Comments Red Cell Distribution Width (test code = 53929-7) 13.6 11.7 -14.4 [facility] HospitalAutomated blood platelet count (count/volume)2020-06-10 05:35:00* Test Item Value Reference Range Interpretation Comments Platelet Count (test code = 777-3) 144 140-360 [facility] HospitalAutomated blood segmented neutrophil count as percentage of total qllrhiedgx8968-33-70 05:35:00* Test Item Value Reference Range Interpretation Comments Neutrophils (%) (Auto) (test code = 68956-2) 53.6 38.7-80.0 [facility] HospitalAutomated blood lymphocyte count as percentage ot total dcmlpxzxsk0665-58-53 05:35:00* Test Item Value Reference Range Interpretation Comments Lymphocytes (%) (Auto) (test code = 736-9) 32.3 18.0-39.1 [facility] HospitalAutomated blood monocyte count as percentage of total tbkofwlfvg7502-39-92 05:35:00* Test Item Value Reference Range Interpretation Comments Monocytes (%) (Auto) (test code = 5905-5) 11.3 4.4-11.3 [facility] HospitalAutomated blood eosinophil count as percentage of total xymlznhcmr6108-69-28 05:35:00* Test Item Value Reference Range Interpretation Comments Eosinophils (%) (Auto) (test code = 713-8) 1.7 0.0-6.0 [facility] HospitalAutomated blood basophil count as percentage of total fygydwfedm2083-30-78 05:35:00* Test Item Value Reference Range Interpretation Comments Basophils (%) (Auto) (test code = 706-2) 0.8 0.0-1.0 [facility] HospitalFluoroscopic procedure less than one hour gaphhhin1157-90-56 05:35:00* Test Item Value Reference Range Interpretation Comments IM GRANULOCYTES % (test code = IM GRANULOCYTES %) 0.3 0.0- 1.0 [facility] HospitalAutomated blood neutrophil count 2020-06-10 05:35:00* Test Item Value Reference Range Interpretation Comments Neutrophils # (Auto) (test code = 751-8) 3.2 2.1-6.9 [facility] HospitalBlood lymphocytes count (number/volume) 2020-06-10 05:35:00* Test Item Value Reference Range Interpretation Comments Lymphocytes # (Auto) (test code = 34104-0) 1.9 1.0-3.2 [facility] HospitalBlood monocytes automated count (number/volume)2020-06-10 05:35:00* Test Item Value Reference Range Interpretation Comments Monocytes # (Auto) (test code = 742-7) 0.7 0.2-0.8 [facility] HospitalAutomated blood eosinophil count 2020-06-10 05:35:00* Test Item Value Reference Range Interpretation Comments Eosinophils # (Auto) (test code = 711-2) 0.1 0.0-0.4 [facility] HospitalAutomated blood basophil count (count/volume)2020-06-10 05:35:00* Test Item Value Reference Range Interpretation Comments Basophils # (Auto) (test code = 704-7) 0.1 0.0-0.1 [facility] HospitalFluoroscopic procedure less than one hour cylxundo3460-31-13 05:35:00* Test Item Value Reference Range Interpretation Comments Absolute Immature Granulocyte (auto (faye t code = Absolute Immature Granulocyte (auto) 0.02 0-0.1 [facility] plasma sodium measurement (moles/volume)2020-06-10 05:35:00* Test Item Value Reference Range Interpretation Comments Sodium Level (test code = 2951-2) 143 136-145 [facility]viewerum or plasma potassium measurement (moles/volume)2020-06-10 05:35:00* Test Item Value Reference Range Interpretation Comments Potassium Level (test code = 2823-3) 3.4 3.5-5.1 [facility]erum or plasma chloride measurement (moles/volume)2020-06-10 05:35:00* Test Item Value Reference Range Interpretation Comments Chloride Level (test code = 2075-0) 110 98-107 [facility]viewerum or plasma carbon dioxide, total measurement (moles/volume)2020-06-10 05:35:00* Test Item Value Reference Range Interpretation Comments Carbon Dioxide Level (test code = 2028-9) 21 22-29 [facility]erum or plasma anion mhk3544-70-22 05:35:00* Test Item Value Reference Range Interpretation Comments Anion Gap (test code = 08455-2) 15.4 8-16 [facility]um or plasma urea nitrogen measurement (mass/volume)2020-06-10 05:35:00* Test Item Value Reference Range Interpretation Comments Blood Urea Nitrogen (test code = 3094-0) 7 7-26 [facility]um or plasma creatinine measurement (mass/volume)2020-06-10 05:35:00* Test Item Value Reference Range Interpretation Comments Creatinine (test code = 2160-0) 1.01 0.72-1.25 [facility]erum or plasma urea nitrogen/creatinine mass ptsck6524-28-94 05:35:00* Test Item Value Reference Range Interpretation Comments BUN/Creatinine Ratio (test code = 3097-3) 7 6-25 [facility] HospitalEstimated glomerular filtration rate (GFR) ddwakmzuiugfg3997-22-43 05:35:00* Test Item Value Reference Range Interpretation Comments Estimat Glomerular Filtration Rate (test code = 828197990) > 60 >60 Ranges were taken from the National Kidney Disease Education Program and the [facility] Foundation literature.Reference ranges:60 or greater: Ewyzlk22-79 ( for 3 consecutive months): Chronic kidney disease 15 or less: Kidney failurePalo Pinto General HospitalGlucose mjxdepcymou6339-81-12 05:35:00* Test Item Value Reference Range Interpretation Comments Glucose Level (test code = SBZ8684) 85 74-118 [facility]um or plasma calcium measurement (mass/volume)2020-06-10 05:35:00* Test Item Value Reference Range Interpretation Comments Calcium Level (test code = 72348-3) 8.0 8.4-10.2 [facility] HospitalUrine color kjcmslocvsmaf0733-66-50 06:45:00* Test Item Value Reference Range Interpretation Comments Urine Color (test code = 5778-6) YELLOW YELLOW [facility] HospitalUrine yqveeqo7214-05-50 06:45:00* Test Item Value Reference Range Interpretation Comments Urine Clarity (test code = 39216-6) CLEAR CLEAR [facility]viewpecific gravity of Urine by Test strip 2020-06-09 06:45:00* Test Item Value Reference Range Interpretation Comments Urine Specific Jennings (test code = 5811-5) 1.015 1.010-1.02 5 [facility] HospitalUrine pH measurement by automated test gpnfh9619-58-49 06:45:00* Test Item Value Reference Range Interpretation Comments Urine pH (test code = 00259-1) 7 5-7 [facility] HospitalUrine leukocyte esterase detection by eyjpjssk2815-60-93 06:45:00* Test Item Value Reference Range Interpretation Comments Urine Leukocyte Esterase (test code = 5799-2) NEGATIVE NEGATIVE [facility] HospitalUrine nitrite adfaggkex2806-72-84 06:45:00* Test Item Value Reference Range Interpretation Comments Urine Nitrite (test code = 42867-7) NEGATIVE NEGATIVE [facility] HospitalUrine protein measurement by test strip (mass/volume)2020-06-09 06:45:00* Test Item Value Reference Range Interpretation Comments Urine Protein (test code = 5804-0) NEGATIVE NEGATIVE [facility] HospitalUrine glucose slkjwfpyv4493-19-84 06:45:00* Test Item Value Reference Range Interpretation Comments Urine Glucose (UA) (test code = 2349-9) NEGATIVE NEGATIVE [facility] HospitalUrine ketones detection by automated test xiwtx1001-02-50 06:45:00* Test Item Value Reference Range Interpretation Comments Urine Ketones (test code = 60112-2) NEGATIVE NEGATIVE [facility] HospitalUrine urobilinogen measurement by test strip (mass/volume)2020-06-09 06:45:00* Test Item Value Reference Range Interpretation Comments Urine Urobilinogen (test code = 78952-2) 0.2 0.2-1 [facility] HospitalUrine total bilirubin measurement (mass/volume)2020-06-09 06:45:00* Test Item Value Reference Range Interpretation Comments Urine Bilirubin (test code = 1978-6) NEGATIVE NEGATIVE [facility] HospitalUrine erythrocytes gmmezqvge8159-18-97 06:45:00* Test Item Value Reference Range Interpretation Comments Urine Blood (test code = 52624-9) TRACE NEGATIVE [facility] HospitalAutomated urine sediment leukocyte count by microscopy (number/high power field)2020-06-09 06:45:00* Test Item Value Reference Range Interpretation Comments Urine WBC (test code = 5821-4) 0-5 0-5 [facility] HospitalErythrocytes detection in urine sediment by light baidkoueps6041-22-51 06:45:00* Test Item Value Reference Range Interpretation Comments Urine RBC (test code = 58068-4) NONE 0-5 [facility] HospitalBacteria detection in urine sediment by light hpjqqykvhp9505-30-43 06:45:00* Test Item Value Reference Range Interpretation Comments Urine Bacteria (test code = 25957-0) RARE NONE [facility] HospitalEpithelial cells detection in urine sediment by light vqjragcyxe3938-57-85 06:45:00* Test Item Value Reference Range Interpretation Comments Urine Epithelial Cells (test code = 97324-1) RARE NONE [facility]erum or plasma total bilirubin measurement (mass/volume)2020-06-09 00:10:00* Test Item Value Reference Range Interpretation Comments Total Bilirubin (test code = 1975-2) 0.4 0.2-1.2 [facility] HospitalFluoroscopic procedure less than one hour zwehtbqr4822-96-10 00:10:00* Test Item Value Reference Range Interpretation Comments Aspartate Amino Transf (AST/SGOT) (test code = Aspartate Amino Transf (AST/SGOT)) 12 5-34 [facility]viewerum or plasma alanine aminotransferase measurement (enzymatic activity/volume)2020-06-09 00:10:00* Test Item Value Reference Range Interpretation Comments Alanine Aminotransferase (ALT/SGPT) (test code = 1742-6) 11 0-55 [facility]erum or plasma protein measurement (mass/volume)2020-06-09 00:10:00* Test Item Value Reference Range Interpretation Comments Total Protein (test code = 2885-2) 5.7 6.5-8.1 [facility]um or plasma albumin measurement (mass/volume)2020-06-09 00:10:00* Test Item Value Reference Range Interpretation Comments Albumin (test code = 1751-7) 3.5 3.5-5.0 [facility] HospitalPlasma globulin measurement (mass/volume) 2020-06-09 00:10:00* Test Item Value Reference Range Interpretation Comments Globulin (test code = 60405-0) 2.2 2.3-3.5 [facility]um or plasma albumin/globulin mass uyzgo3933-52-62 00:10:00* Test Item Value Reference Range Interpretation Comments Albumin/Globulin Ratio (test code = 1759-0) 1.6 0.8-2.0 [facility]um or plasma alkaline phosphatase measurement (enzymatic activity/volume)2020-06-09 00:10:00* Test Item Value Reference Range Interpretation Comments Alkaline Phosphatase (test code = 6768-6) 51 40-150 [facility]erum or plasma amylase measurement (enzymatic activity/volume)2020-06-09 00:10:00* Test Item Value Reference Range Interpretation Comments Amylase Level (test code = 1798-8) 33 25-125 [facility]erum or plasma lipase measurement (enzymatic activity/volume)2020-06-09 00:10:00* Test Item Value Reference Range Interpretation Comments Lipase (test code = 3040-3) 15 8-78 [facility] HospitalFree thyroxine qkzpg2166-19-91 00:10:00* Test Item Value Reference Range Interpretation Comments Free Thyroxine Index (test code = 32786-8) 2.7307 1.4-3.8 [facility]erum or plasma thyroxine (T4) measurement (mass/volume)2020-06-09 00:10:00* Test Item Value Reference Range Interpretation Comments Thyroxine (T4) (test code = 3026-2) 7.82 4.5-10.9 [facility]erum or plasma triiodothyronine resin uptake (T3RU)2020-06-09 00:10:00* Test Item Value Reference Range Interpretation Comments Triiodothyronine (T3) Uptake (test code = 3050-2) 34.92 22.5 -37.0 [facility]erum or plasma thyrotropin measurement by detection limit <= 0.005 miu/l (units/volume)2020-06-09 00:10:00* Test Item Value Reference Range Interpretation Comments Thyroid Stimulating Hormone (TSH) (test code = 46577-4) 1.865 0.350-4.940 [facility]erum or plasma amylase measurement (enzymatic activity/volume)2020-06-09 00:10:00* Test Item Value Reference Range Interpretation Comments Amylase Level (test code = 1798-8) 33 25-125 [facility]erum or plasma lipase measurement (enzymatic activity/volume)2020-06-09 00:10:00* Test Item Value Reference Range Interpretation Comments Lipase (test code = 3040-3) [facility] HospitalFree thyroxine fuzsk2541-02-08 00:10:00* Test Item Value Reference Range Interpretation Comments Free Thyroxine Index (test code = 11587-2) 2.7307 1.4-3.8 [facility]um or plasma thyroxine (T4) measurement (mass/volume)2020-06-09 00:10:00* Test Item Value Reference Range Interpretation Comments Thyroxine (T4) (test code = 3026-2) 7.82 4.5-10.9 [facility]um or plasma triiodothyronine resin uptake (T3RU)2020-06-09 00:10:00* Test Item Value Reference Range Interpretation Comments Triiodothyronine (T3) Uptake (test code = 3050-2) 34.92 22.5 -37.0 [facility]um or plasma thyrotropin measurement by detection limit <= 0.005 miu/l (units/volume)2020-06-09 00:10:00* Test Item Value Reference Range Interpretation Comments Thyroid Stimulating Hormone (TSH) (test code = 81490-6) 1.865 0.350-4.940 [facility] HospitalFluoroscopic procedure less than one hour vybjqhoz8228-36-21 22:05:00* Test Item Value Reference Range Interpretation Comments Coronavirus (PCR) (test code = Coronavirus (PCR)) NOT DETECTED NOTD ETECTED SARS-CoV-2 PCRHologic Aptima SARS-CoV-2 assay is a nucleic amplification test in tended for the qualitative detection of RNA from SARS-CoV-2 from nasopharyngeal (TRANSITIONAL CARE MANAGER) specimens. It is used under Emergency Use [...] repr at testing oc clinically indicated.Tesing performed by:[facility] Laboratory Services[address] [place] [address] [id number], Cindy garcia MD, PhDPalo Pinto General HospitalCXR 2 VIEW - [id number] 19:03:00 [place] [address] Patient Name: NOEMY ARGUETA MR #: [id number] : 1935 Age/Sex: 84/M Req #: [id number] Adm Physician: Ordered by: RACQUEL DELGADO MD Report #: [id number] Location: [facility] Room/Bed: Procedure: [id number] HOPD/CXR 2 VIE W - HOPD Exam [...] 7:09 PM Dictated By: RILEY CERVANTES MD [facility] Signed By: RILEY CERVANTES MD on 06/08/201908 Transcribed By: APOORVA on 06/08/201908 COPY TO: RACQUEL DELGADO MD CT ABDOMEN/PELVIS [id number] 17:22:00 [place] [address] Patient Name: NOEMY ARGUETA MR #: [id number] : 1935 Age/Sex: 84/M Req #: [id number] Adm Physician: Ordered by: PER AU MD Report #: [id number] Location: ER Room/Bed: Procedure: [id number] [facility] Date: 05/20/20 Exam Time: 1707 REPORT [...] in diameter with scattered calcifications PELVIS FINDINGS: [place] el: Stomach: Normal. Small Bowel: Enteric contrast [...] COPY TO: NATHALIE AU MD Urine color svqnhhfuahvvu8949-60-02 16:58:00* Test Item Value Reference Range Interpretation Comments Urine Color (test code = 5778-6) YELLOW YELLOW [facility] HospitalUrine ytpuhfq3744-69-55 16:58:00* Test Item Value Reference Range Interpretation Comments Urine Clarity (test code = 32969-0) SL CLOUDY CLEAR [facility]pecific gravity of Urine by Test strip 2020-05-20 16:58:00* Test Item Value Reference Range Interpretation Comments Urine Specific [place] (test code = 5811-5) 1.010 1.010-1.02 5 [facility] HospitalUrine pH measurement by automated test wgujk8513-53-39 16:58:00* Test Item Value Reference Range Interpretation Comments Urine pH (test code = 02495-2) 6 5-7 [facility] HospitalUrine leukocyte esterase detection by odweonum4633-96-48 16:58:00* Test Item Value Reference Range Interpretation Comments Urine Leukocyte Esterase (test code = 5799-2) NEGATIVE NEGATIVE [facility] HospitalUrine nitrite xfnupcpoj9259-17-73 16:58:00* Test Item Value Reference Range Interpretation Comments Urine Nitrite (test code = 94533-3) NEGATIVE NEGATIVE [facility] HospitalUrine protein measurement by test strip (mass/volume)2020-05-20 16:58:00* Test Item Value Reference Range Interpretation Comments Urine Protein (test code = 5804-0) NEGATIVE NEGATIVE [facility] HospitalUrine glucose tgawkixxr2726-63-16 16:58:00* Test Item Value Reference Range Interpretation Comments Urine Glucose (UA) (test code = 2349-9) NEGATIVE NEGATIVE [facility] HospitalUrine ketones detection by automated test bmnvr1182-16-67 16:58:00* Test Item Value Reference Range Interpretation Comments Urine Ketones (test code = 59411-1) NEGATIVE NEGATIVE [facility] HospitalUrine urobilinogen measurement by test strip (mass/volume)2020-05-20 16:58:00* Test Item Value Reference Range Interpretation Comments Urine Urobilinogen (test code = 81322-7) 0.2 0.2-1 [facility] HospitalUrine total bilirubin measurement (mass/volume)2020-05-20 16:58:00* Test Item Value Reference Range Interpretation Comments Urine Bilirubin (test code = 1978-6) NEGATIVE NEGATIVE [facility] HospitalUrine erythrocytes lxznxrkig6401-94-53 16:58:00* Test Item Value Reference Range Interpretation Comments Urine Blood (test code = 93720-6) NEGATIVE NEGATIVE [facility] HospitalAutomated urine sediment leukocyte count by microscopy (number/high power field)2020-05-20 16:58:00* Test Item Value Reference Range Interpretation Comments Urine WBC (test code = 5821-4) NONE 0-5 [facility] HospitalErythrocytes detection in urine sediment by light zhxsmrtddn7236-84-76 16:58:00* Test Item Value Reference Range Interpretation Comments Urine RBC (test code = 90187-9) NONE 0-5 [facility] HospitalBacteria detection in urine sediment by light jbraccgjqe7137-95-32 16:58:00* Test Item Value Reference Range Interpretation Comments Urine Bacteria (test code = 32134-2) FEW NONE [facility] HospitalEpithelial cells detection in urine sediment by light inmbgfyryk0258-16-48 16:58:00* Test Item Value Reference Range Interpretation Comments Urine Epithelial Cells (test code = 87935-2) RARE NONE [facility] HospitalUrine color ujmqnkwkdjyal5380-46-13 16:58:00* Test Item Value Reference Range Interpretation Comments Urine Color (test code = 5778-6) YELLOW YELLOW [facility] HospitalUrine knzdtdi7291-49-31 16:58:00* Test Item Value Reference Range Interpretation Comments Urine Clarity (test code = 10415-4) SL CLOUDY CLEAR [facility] gravity of Urine by Test strip 2020-05-20 16:58:00* Test Item Value Reference Range Interpretation Comments Urine Specific Jennings (test code = 5811-5) 1.010 1.010-1.02 5 [facility] HospitalUrine pH measurement by automated test gogqc5857-86-02 16:58:00* Test Item Value Reference Range Interpretation Comments Urine pH (test code = 01598-4) 6 5-7 [facility] HospitalUrine leukocyte esterase detection by hofieyrt3975-59-98 16:58:00* Test Item Value Reference Range Interpretation Comments Urine Leukocyte Esterase (test code = 5799-2) NEGATIVE NEGATIVE [facility] HospitalUrine nitrite mzfzskuzh5433-89-45 16:58:00* Test Item Value Reference Range Interpretation Comments Urine Nitrite (test code = 21002-7) NEGATIVE NEGATIVE [facility] HospitalUrine protein measurement by test strip (mass/volume)2020-05-20 16:58:00* Test Item Value Reference Range Interpretation Comments Urine Protein (test code = 5804-0) NEGATIVE NEGATIVE [facility] HospitalUrine glucose jjudrikyp1275-85-47 16:58:00* Test Item Value Reference Range Interpretation Comments Urine Glucose (UA) (test code = 2349-9) NEGATIVE NEGATIVE [facility] HospitalUrine ketones detection by automated test opnxb7167-77-25 16:58:00* Test Item Value Reference Range Interpretation Comments Urine Ketones (test code = 33225-3) NEGATIVE NEGATIVE [facility] HospitalUrine urobilinogen measurement by test strip (mass/volume)2020-05-20 16:58:00* Test Item Value Reference Range Interpretation Comments Urine Urobilinogen (test code = 47405-4) 0.2 0.2-1 [facility] HospitalUrine total bilirubin measurement (mass/volume)2020-05-20 16:58:00* Test Item Value Reference Range Interpretation Comments Urine Bilirubin (test code = 1978-6) NEGATIVE NEGATIVE [facility] HospitalUrine erythrocytes svodnysno0387-43-45 16:58:00* Test Item Value Reference Range Interpretation Comments Urine Blood (test code = 32095-7) NEGATIVE NEGATIVE [facility] HospitalAutomated urine sediment leukocyte count by microscopy (number/high power field)2020-05-20 16:58:00* Test Item Value Reference Range Interpretation Comments Urine WBC (test code = 5821-4) NONE 0-5 [facility] HospitalErythrocytes detection in urine sediment by light cyqlsqzsin9202-53-17 16:58:00* Test Item Value Reference Range Interpretation Comments Urine RBC (test code = 69001-2) NONE 0-5 [facility] HospitalBacteria detection in urine sediment by light zodzarjqzn6801-67-66 16:58:00* Test Item Value Reference Range Interpretation Comments Urine Bacteria (test code = 58121-6) FEW NONE [facility] HospitalEpithelial cells detection in urine sediment by light ksbqdnfaws2126-51-05 16:58:00* Test Item Value Reference Range Interpretation Comments Urine Epithelial Cells (test code = 52019-5) RARE NONE [facility] HospitalBlood leukocytes automated count (number/volume)2020-05-20 15:36:00* Test Item Value Reference Range Interpretation Comments White Blood Count (test code = 6690-2) 8.36 4.8-10.8 [facility] HospitalBlood erythrocytes automated count (number/volume)2020-05-20 15:36:00* Test Item Value Reference Range Interpretation Comments Red Blood Count (test code = 789-8) 5.04 4.3-5.7 [facility] HospitalBlood hemoglobin measurement (moles/volume)2020-05-20 15:36:00* Test Item Value Reference Range Interpretation Comments Hemoglobin (test code = 96218-8) 15.1 14.0-18.0 [facility] HospitalAutomated blood hematocrit (volume fraction)2020-05-20 15:36:00* Test Item Value Reference Range Interpretation Comments Hematocrit (test code = 4544-3) 45.8 38.2-49.6 [facility] HospitalAutomated erythrocyte mean corpuscular mzqdju4266-10-43 15:36:00* Test Item Value Reference Range Interpretation Comments Mean Corpuscular Volume (test code = 787-2) 90.9 81-99 [facility] HospitalAutomated erythrocyte mean corpuscular hemoglobin (mass per erythrocyte)2020-05-20 15:36:00* Test Item Value Reference Range Interpretation Comments Mean Corpuscular Hemoglobin (test code = 785-6) 30.0 28-32 [facility] HospitalAutomated erythrocyte mean corpuscular hemoglobin concentration measurement (mass/volume)2020-05-20 15:36:00* Test Item Value Reference Range Interpretation Comments Mean Corpuscular Hemoglobin Concent (test code = 786-4) 33.0 31-35 [facility] HospitalRDW PpuDv-Kug9911-78-21 15:36:00* Test Item Value Reference Range Interpretation Comments Red Cell Distribution Width (test code = 56987-0) 14.0 11.7 -14.4 [facility] HospitalAutomated blood platelet count (count/volume)2020-05-20 15:36:00* Test Item Value Reference Range Interpretation Comments Platelet Count (test code = 777-3) 187 140-360 [facility] HospitalAutomated blood segmented neutrophil count as percentage of total aruhzybdnt0391-41-18 15:36:00* Test Item Value Reference Range Interpretation Comments Neutrophils (%) (Auto) (test code = 02038-3) 65.9 38.7-80.0 [facility] HospitalAutomated blood lymphocyte count as percentage ot total dnkexfetxr4030-31-41 15:36:00* Test Item Value Reference Range Interpretation Comments Lymphocytes (%) (Auto) (test code = 736-9) 24.4 18.0-39.1 [facility] HospitalAutomated blood monocyte count as percentage of total lhnfyopctn7538-53-75 15:36:00* Test Item Value Reference Range Interpretation Comments Monocytes (%) (Auto) (test code = 5905-5) 8.1 4.4-11.3 [facility] HospitalAutomated blood eosinophil count as percentage of total ofropocsgj9165-13-57 15:36:00* Test Item Value Reference Range Interpretation Comments Eosinophils (%) (Auto) (test code = 713-8) 0.6 0.0-6.0 [facility] HospitalAutomated blood basophil count as percentage of total cpmjfiwlek8848-64-37 15:36:00* Test Item Value Reference Range Interpretation Comments Basophils (%) (Auto) (test code = 706-2) 0.6 0.0-1.0 [facility] HospitalFluoroscopic procedure less than one hour lahvaikm2645-44-17 15:36:00* Test Item Value Reference Range Interpretation Comments IM GRANULOCYTES % (test code = IM GRANULOCYTES %) 0.4 0.0- 1.0 [facility] HospitalAutomated blood neutrophil count 2020-05-20 15:36:00* Test Item Value Reference Range Interpretation Comments Neutrophils # (Auto) (test code = 751-8) 5.5 2.1-6.9 [facility] HospitalBlood lymphocytes count (number/volume) 2020-05-20 15:36:00* Test Item Value Reference Range Interpretation Comments Lymphocytes # (Auto) (test code = 14838-6) 2.0 1.0-3.2 [facility] HospitalBlood monocytes automated count (number/volume)2020-05-20 15:36:00* Test Item Value Reference Range Interpretation Comments Monocytes # (Auto) (test code = 742-7) 0.7 0.2-0.8 [facility] HospitalAutomated blood eosinophil count 2020-05-20 15:36:00* Test Item Value Reference Range Interpretation Comments Eosinophils # (Auto) (test code = 711-2) 0.1 0.0-0.4 [facility] HospitalAutomated blood basophil count (count/volume)2020-05-20 15:36:00* Test Item Value Reference Range Interpretation Comments Basophils # (Auto) (test code = 704-7) 0.1 0.0-0.1 [facility] HospitalFluoroscopic procedure less than one hour hilrjouu5717-24-19 15:36:00* Test Item Value Reference Range Interpretation Comments Absolute Immature Granulocyte (auto (faye t code = Absolute Immature Granulocyte (auto) 0.03 0-0.1 [facility] plasma sodium measurement (moles/volume)2020-05-20 15:36:00* Test Item Value Reference Range Interpretation Comments Sodium Level (test code = 2951-2) 140 136-145 [facility]viewerum or plasma potassium measurement (moles/volume)2020-05-20 15:36:00* Test Item Value Reference Range Interpretation Comments Potassium Level (test code = 2823-3) 4.1 3.5-5.1 [facility]viewerum or plasma chloride measurement (moles/volume)2020-05-20 15:36:00* Test Item Value Reference Range Interpretation Comments Chloride Level (test code = 2075-0) 104 98-107 [facility]viewerum or plasma carbon dioxide, total measurement (moles/volume)2020-05-20 15:36:00* Test Item Value Reference Range Interpretation Comments Carbon Dioxide Level (test code = 2028-9) 23 22-29 [facility]viewerum or plasma anion yqj6535-31-51 15:36:00* Test Item Value Reference Range Interpretation Comments Anion Gap (test code = 78721-7) 17.1 8-16 [facility]erum or plasma urea nitrogen measurement (mass/volume)2020-05-20 15:36:00* Test Item Value Reference Range Interpretation Comments Blood Urea Nitrogen (test code = 3094-0) 12 7-26 [facility]erum or plasma creatinine measurement (mass/volume)2020-05-20 15:36:00* Test Item Value Reference Range Interpretation Comments Creatinine (test code = 2160-0) 1.31 0.72-1.25 [facility]erum or plasma urea nitrogen/creatinine mass kkwqi1086-77-18 15:36:00* Test Item Value Reference Range Interpretation Comments BUN/Creatinine Ratio (test code = 3097-3) 9 6-25 [facility] HospitalEstimated glomerular filtration rate (GFR) nxhyuvrgixsle6135-45-70 15:36:00* Test Item Value Reference Range Interpretation Comments Estimat Glomerular Filtration Rate (test code = 806498143) 52 >60 Ranges were taken from the National Kidney Disease Education Program and the [facility] Kidney Foundation literature.Reference ranges:60 or greater: Spkgjt19-24 ( for 3 consecutive months): Chronic kidney disease 15 or less: Kidney failurePalo Pinto General HospitalGlucose pnmthtufvzb5875-74-22 15:36:00* Test Item Value Reference Range Interpretation Comments Glucose Level (test code = PNM5734) 120 74-118 [facility] or plasma calcium measurement (mass/volume)2020-05-20 15:36:00* Test Item Value Reference Range Interpretation Comments Calcium Level (test code = 42907-2) 9.6 8.4-10.2 [facility]erum or plasma magnesium measurement (mass/volume)2020-05-20 15:36:00* Test Item Value Reference Range Interpretation Comments Magnesium Level (test code = 95748-5) 1.5 1.3-2.1 [facility]erum or plasma total bilirubin measurement (mass/volume)2020-05-20 15:36:00* Test Item Value Reference Range Interpretation Comments Total Bilirubin (test code = 1975-2) 0.5 0.2-1.2 [facility] HospitalFluoroscopic procedure less than one hour hkirmper0951-92-88 15:36:00* Test Item Value Reference Range Interpretation Comments Aspartate Amino Transf (AST/SGOT) (test code = Aspartate Amino Transf (AST/SGOT)) 15 5-34 [facility]erum or plasma alanine aminotransferase measurement (enzymatic activity/volume)2020-05-20 15:36:00* Test Item Value Reference Range Interpretation Comments Alanine Aminotransferase (ALT/SGPT) (test code = 1742-6) 10 0-55 [facility]erum or plasma protein measurement (mass/volume)2020-05-20 15:36:00* Test Item Value Reference Range Interpretation Comments Total Protein (test code = 2885-2) 7.6 6.5-8.1 [facility]um or plasma albumin measurement (mass/volume)2020-05-20 15:36:00* Test Item Value Reference Range Interpretation Comments Albumin (test code = 1751-7) 4.0 3.5-5.0 [facility] HospitalPlasma globulin measurement (mass/volume) 2020-05-20 15:36:00* Test Item Value Reference Range Interpretation Comments Globulin (test code = 40739-7) 3.6 2.3-3.5 [facility]erum or plasma albumin/globulin mass btpik9989-65-73 15:36:00* Test Item Value Reference Range Interpretation Comments Albumin/Globulin Ratio (test code = 1759-0) 1.1 0.8-2.0 [facility]erum or plasma alkaline phosphatase measurement (enzymatic activity/volume)2020-05-20 15:36:00* Test Item Value Reference Range Interpretation Comments Alkaline Phosphatase (test code = 6768-6) 54 40-150 [facility] HospitalBlood leukocytes automated count (number/volume)2020-05-20 15:36:00* Test Item Value Reference Range Interpretation Comments White Blood Count (test code = 6690-2) 8.36 4.8-10.8 [facility] HospitalBlood erythrocytes automated count (number/volume)2020-05-20 15:36:00* Test Item Value Reference Range Interpretation Comments Red Blood Count (test code = 789-8) 5.04 4.3-5.7 [facility] HospitalBlood hemoglobin measurement (moles/volume)2020-05-20 15:36:00* Test Item Value Reference Range Interpretation Comments Hemoglobin (test code = 14345-0) 15.1 14.0-18.0 [facility] HospitalAutomated blood hematocrit (volume fraction)2020-05-20 15:36:00* Test Item Value Reference Range Interpretation Comments Hematocrit (test code = 4544-3) 45.8 38.2-49.6 [facility] HospitalAutomated erythrocyte mean corpuscular kpdels9889-90-80 15:36:00* Test Item Value Reference Range Interpretation Comments Mean Corpuscular Volume (test code = 787-2) 90.9 81-99 [facility] HospitalAutomated erythrocyte mean corpuscular hemoglobin (mass per erythrocyte)2020-05-20 15:36:00* Test Item Value Reference Range Interpretation Comments Mean Corpuscular Hemoglobin (test code = 785-6) 30.0 28-32 [facility] HospitalAutomated erythrocyte mean corpuscular hemoglobin concentration measurement (mass/volume)2020-05-20 15:36:00* Test Item Value Reference Range Interpretation Comments Mean Corpuscular Hemoglobin Concent (test code = 786-4) 33.0 31-35 [facility] HospitalRDW KgoIt-Mfl2120-26-21 15:36:00* Test Item Value Reference Range Interpretation Comments Red Cell Distribution Width (test code = 18555-6) 14.0 11.7 -14.4 [facility] HospitalAutomated blood platelet count (count/volume)2020-05-20 15:36:00* Test Item Value Reference Range Interpretation Comments Platelet Count (test code = 777-3) 187 140-360 [facility] HospitalAutwake forest [facility] dav[facility] hospitaled blood segmented neutrophil count as percentage of total remorzxnmm0825-02-57 15:36:00* Test Item Value Reference Range Interpretation Comments Neutrophils (%) (Auto) (test code = 45283-4) 65.9 38.7-80.0 [facility] HospitalAutomated blood lymphocyte count as percentage ot total dbltvzrevn4762-35-80 15:36:00* Test Item Value Reference Range Interpretation Comments Lymphocytes (%) (Auto) (test code = 736-9) 24.4 18.0-39.1 [facility] HospitalAutomated blood monocyte count as percentage of total mbvsmpfeth0958-02-24 15:36:00* Test Item Value Reference Range Interpretation Comments Monocytes (%) (Auto) (test code = 5905-5) 8.1 4.4-11.3 [facility] HospitalAutomated blood eosinophil count as percentage of total ukpdaphkbf7039-46-87 15:36:00* Test Item Value Reference Range Interpretation Comments Eosinophils (%) (Auto) (test code = 713-8) 0.6 0.0-6.0 [facility] HospitalAutomated blood basophil count as percentage of total yhszhzlwpv0244-30-48 15:36:00* Test Item Value Reference Range Interpretation Comments Basophils (%) (Auto) (test code = 706-2) 0.6 0.0-1.0 [facility] HospitalFluoroscopic procedure less than one hour hprdqjqu3654-97-81 15:36:00* Test Item Value Reference Range Interpretation Comments IM GRANULOCYTES % (test code = IM GRANULOCYTES %) 0.4 0.0- 1.0 [facility] HospitalAutomated blood neutrophil count 2020-05-20 15:36:00* Test Item Value Reference Range Interpretation Comments Neutrophils # (Auto) (test code = 751-8) 5.5 2.1-6.9 [facility] HospitalBlood lymphocytes count (number/volume) 2020-05-20 15:36:00* Test Item Value Reference Range Interpretation Comments Lymphocytes # (Auto) (test code = 89750-4) 2.0 1.0-3.2 [facility] HospitalBlood monocytes automated count (number/volume)2020-05-20 15:36:00* Test Item Value Reference Range Interpretation Comments Monocytes # (Auto) (test code = 742-7) 0.7 0.2-0.8 [facility] HospitalAutomated blood eosinophil count 2020-05-20 15:36:00* Test Item Value Reference Range Interpretation Comments Eosinophils # (Auto) (test code = 711-2) 0.1 0.0-0.4 [facility] HospitalAutomated blood basophil count (count/volume)2020-05-20 15:36:00* Test Item Value Reference Range Interpretation Comments Basophils # (Auto) (test code = 704-7) 0.1 0.0-0.1 [facility] HospitalFluoroscopic procedure less than one hour cawgugwe8180-39-28 15:36:00* Test Item Value Reference Range Interpretation Comments Absolute Immature Granulocyte (auto (faye t code = Absolute Immature Granulocyte (auto) 0.03 0-0.1 [facility]um or plasma sodium measurement (moles/volume)2020-05-20 15:36:00* Test Item Value Reference Range Interpretation Comments Sodium Level (test code = 2951-2) 140 136-145 [facility]erum or plasma potassium measurement (moles/volume)2020-05-20 15:36:00* Test Item Value Reference Range Interpretation Comments Potassium Level (test code = 2823-3) 4.1 3.5-5.1 [facility]um or plasma chloride measurement (moles/volume)2020-05-20 15:36:00* Test Item Value Reference Range Interpretation Comments Chloride Level (test code = 2075-0) 104 98-107 [facility]erum or plasma carbon dioxide, total measurement (moles/volume)2020-05-20 15:36:00* Test Item Value Reference Range Interpretation Comments Carbon Dioxide Level (test code = 2028-9) 23 22-29 [facility]erum or plasma anion res9361-60-17 15:36:00* Test Item Value Reference Range Interpretation Comments Anion Gap (test code = 79123-8) 17.1 8-16 [facility]erum or plasma urea nitrogen measurement (mass/volume)2020-05-20 15:36:00* Test Item Value Reference Range Interpretation Comments Blood Urea Nitrogen (test code = 3094-0) 12 7-26 [facility]erum or plasma creatinine measurement (mass/volume)2020-05-20 15:36:00* Test Item Value Reference Range Interpretation Comments Creatinine (test code = 2160-0) 1.31 0.72-1.25 [facility]erum or plasma urea nitrogen/creatinine mass tptsb6287-30-91 15:36:00* Test Item Value Reference Range Interpretation Comments BUN/Creatinine Ratio (test code = 3097-3) 9 6-25 [facility] HospitalEstimated glomerular filtration rate (GFR) ypicmqwmsngzy2745-12-39 15:36:00* Test Item Value Reference Range Interpretation Comments Estimat Glomerular Filtration Rate (test code = 246867665) 52 >60 Ranges were taken from the National Kidney Disease Education Program and the [facility] Kidney Foundation literature.Reference ranges:60 or greater: Abyepx01-92 ( for 3 consecutive months): Chronic kidney disease 15 or less: Kidney failurePalo Pinto General HospitalGlucose mlzabxaarri7877-02-83 15:36:00* Test Item Value Reference Range Interpretation Comments Glucose Level (test code = XBS7403) 120 74-118 [facility]um or plasma calcium measurement (mass/volume)2020-05-20 15:36:00* Test Item Value Reference Range Interpretation Comments Calcium Level (test code = 42285-2) 9.6 8.4-10.2 [facility]erum or plasma magnesium measurement (mass/volume)2020-05-20 15:36:00* Test Item Value Reference Range Interpretation Comments Magnesium Level (test code = 23384-3) 1.5 1.3-2.1 [facility]erum or plasma total bilirubin measurement (mass/volume)2020-05-20 15:36:00* Test Item Value Reference Range Interpretation Comments Total Bilirubin (test code = 1975-2) 0.5 0.2-1.2 [facility] HospitalFluoroscopic procedure less than one hour rphtdkto6477-32-83 15:36:00* Test Item Value Reference Range Interpretation Comments Aspartate Amino Transf (AST/SGOT) (test code = Aspartate Amino Transf (AST/SGOT)) 15 5-34 [facility]erum or plasma alanine aminotransferase measurement (enzymatic activity/volume)2020-05-20 15:36:00* Test Item Value Reference Range Interpretation Comments Alanine Aminotransferase (ALT/SGPT) (test code = 1742-6) 10 0-55 [facility]erum or plasma protein measurement (mass/volume)2020-05-20 15:36:00* Test Item Value Reference Range Interpretation Comments Total Protein (test code = 2885-2) 7.6 6.5-8.1 [facility]erum or plasma albumin measurement (mass/volume)2020-05-20 15:36:00* Test Item Value Reference Range Interpretation Comments Albumin (test code = 1751-7) 4.0 3.5-5.0 [facility] HospitalPlasma globulin measurement (mass/volume) 2020-05-20 15:36:00* Test Item Value Reference Range Interpretation Comments Globulin (test code = 27413-5) 3.6 2.3-3.5 [facility]erum or plasma albumin/globulin mass ffred6942-12-78 15:36:00* Test Item Value Reference Range Interpretation Comments Albumin/Globulin Ratio (test code = 1759-0) 1.1 0.8-2.0 [facility]erum or plasma alkaline phosphatase measurement (enzymatic activity/volume)2020-05-20 15:36:00* Test Item Value Reference Range Interpretation Comments Alkaline Phosphatase (test code = 6768-6) 54 40-150 [facility]erum or plasma magnesium measurement (mass/volume)2020-05-20 15:36:00* Test Item Value Reference Range Interpretation Comments Magnesium Level (test code = 36579-0) 1.5 1.3-2.1 [facility]erum or plasma magnesium measurement (mass/volume)2020-05-20 15:36:00* Test Item Value Reference Range Interpretation Comments Magnesium Level (test code = 21672-6) 1.5 1.3-2.1 [facility] HospitalCT ABDOMEN[facility]PELVIS W5480-68-44 19:36:[facility] [place] [address] [place] Name: NOEMY ARGUETA MR #: [id number] : 1935 Age/Sex: 84/M Req #: [id number] Adm Physician: Ordered by: NIECY ARZOLA MD Rep ort #: [id number] Location: CT Room/B ed: Procedure: [id number] CT/CT ABDOMEN/ PELVIS W Exam Date: 05/12/20 Exam Time: 1809 [...] set by the Radiation Protocol Co mmittee (RP). Dose modulation, iterative reconstruction, and/or weight b [...] TO: NIECY ARZOLA MD ABDOMEN-1VIEW (KUB)2020-05-11 18:06:00 [place] [address] Patient Name: NOEMY ARGUETA MR #: [id number] : 1935 Age/Sex: 84/M Req #: [id number] Adm Physician: Ordered by: KLAUDIA ARZOLA MD Report #: [id number] Location: [facility] Room/Bed: Procedure: [id number] DX/ABDOMEN-1VI EW (KUB) Exam Date: 05/11/20 Exam Time: 172 REPORT STATUS: Signed EXAM: Abdomen Rad iograph [...] MD Fluoroscopic procedure less than one hour oywbjgtn2521-14-06 19:30:00* Test Item Value Reference Range Interpretation [...] under 564(g) of the ACT.Testing performed by [address]Fluoroscopic procedure less than one hour duration 2020-04-02 [...] under 564(g) of the ACT.Testing performed by [address] [address]NAXPalo [facility]into [facility] HospitalCHEST SINGLE (PORTABLE)2020-04-02 07:07:[address] [place], [place] [address] Patient Name: NOEMY ARGUETA MR #: [id number] : 1935 Age/Sex: 84/M Req #: [id number] Adm Physician: AG JACOBSEN MD Ordered by: ANITHA POLANCO MD, MD Report #: [id number] Location: [facility]/Bed: [place] [address] Procedure: [id number] DX/CHEST SI NGLE (PORTABLE) Exam Date: 04/02/20 [...] Kinase (test code = 2157-6) 127 30-200 [facility]erum or plasma creatine kinase MB measurement (mass/volume)2020-04-02 07:01:00* Test Item Value Reference Range Interpretation Comments Creatine Kinase MB (test code = 73353-3) 2.00 0-5.0 [facility] HospitalTroponin I measurement by highly sensitive enzyme rtysusdnfbn8078-30-29 07:01:00* Test Item Value Reference Range Interpretation Comments Troponin I (test code = 54605-0) 0.003 0-0.300 [facility]um or plasma creatine kinase measurement (enzymatic activity/volume)2020-04-02 07:01:00* Test Item Value Reference Range Interpretation Comments Creatine Kinase (test code = 2157-6) 127 30-200 [facility]erum or plasma creatine kinase MB measurement (mass/volume)2020-04-02 07:01:00* Test Item Value Reference Range Interpretation Comments Creatine Kinase MB (test code = 22773-0) 2.00 0-5.0 [facility] HospitalTroponin I measurement by highly sensitive enzyme ztbhrenyjvp1884-27-90 07:01:00* Test Item Value Reference Range Interpretation Comments Troponin I (test code = 75167-3) 0.003 0-0.300 [facility]erum or plasma creatine kinase measurement (enzymatic activity/volume)2020-04-02 07:01:00* Test Item Value Reference Range Interpretation Comments Creatine Kinase (test code = 2157-6) 127 30-200 [facility]erum or plasma creatine kinase MB measurement (mass/volume)2020-04-02 07:01:00* Test Item Value Reference Range Interpretation Comments Creatine Kinase MB (test code = 87954-3) 2.00 0-5.0 [facility] HospitalTroponin I measurement by highly sensitive enzyme oxgsfyfxyhm0286-52-93 07:01:00* Test Item Value Reference Range Interpretation Comments Troponin I (test code = 72433-4) 0.003 0-0.300 [facility] HospitalCT BRAIN LO0428-15-26 11:20:00 [place] [address] Patient Name: NOEMY ARGUETA MR #: [id number] : 1935 Age/Sex: 84/M Req #: [id number] Adm Physician: Ordered by: ANITHA POLANCO MD, MD Report #: [id number] Location: [facility] /Bed: Procedure: [id number] CT/CT BRAIN WO Exam Date: 04/01/20 Exam [...] TO: ANITHA POLANCO CHEST SINGLE (PORTABLE)2020-04-01 11:17:00 [place] [address] Patient Name: NOEMY ARGUETA MR #: [id number] : 1935 Age/Sex: 84/M Req #: [id number] Adm Physician: Ordered by: ANITHA POLANCO MD, MD Report #: [id number] Location: ER Room/Bed: Procedure: [id number] DX/CHEST SI NGLE (PORTABLE) Exam Date: 04/01/20 Exam Time: 1025 REPORT STATUS: Signed EXAMINATIO N: CHEST SINGLE (PORTABLE) INDICATION: Y ERMD ORDER [id number] Y COMPARISON: 03/13/2020 FINDINGS: AP view TUBES [...] 04/01/2020 11:19 AM Dictated By: KIRSTY JARVIS 18 Transc ribed By: AOPORVA on 04/01/201118 COPY TO: ANITHA POLANCO Prothrombin time (PT) in platelet poor plasma by coagulation vfisv3630-51-35 10:15:00* Test Item Value Reference Range Interpretation Comments Prothrombin Time (test code = 5902-2) 14.3 11.9-14.5 [facility] HospitalINR in Platelet poor plasma by Coagulation mrtkp6430-89-81 10:15:00* Test Item Value Reference Range Interpretation Comments Prothromb Time International Ratio (test code = 6301-6) 1.05 Oral Anticoagulant Therapy INR Values:1. Low Intensity Therapy 1.5 - 2.02 . Moderate Intensity Therapy 2.0 - 3.03. High Intensity Therapy(1) 2.5 - 3. 54. High Intensity Therapy(2) 3.0 - 4.05. Panic Value INR > 5.0 [facility] HospitalActivated partial thromboplastin time (aPTT) in platelet poor plasma by coagulation gbbgn3746-94-36 10:15:00* Test Item Value Reference Range Interpretation Comments Activated Partial Thromboplast Time (test code = 72551-6) 30.2 23.8-35.5 [facility] HospitalFluoroscopic procedure less than one hour bhfzenbj2380-71-58 10:15:00* Test Item Value Reference Range Interpretation Comments Lactic Acid Level (test code = Lactic Acid Level) 1.5 0.5- 2.0 [facility] HospitalBNP Atx-bXii4046-53-03 10:15:00* Test Item Value Reference Range Interpretation Comments B-Type Natriuretic Peptide (test code = 76722-6) 32.1 0-100 [facility]erum or plasma thyrotropin measurement by detection limit <= 0.005 miu/l (units/volume)2020-04-01 10:15:00* Test Item Value Reference Range Interpretation Comments Thyroid Stimulating Hormone (TSH) (test code = 35617-1) 1.327 0.350-4.940 [facility] HospitalBlood faublfn9068-46-25 10:15:00* Test Item Value Reference Range Interpretation Comments Blood Culture (test code = 47530791) NO GROWTH AFTER 5 DAYS, FINAL REPORT [facility] HospitalProthrombin time (PT) in platelet poor plasma by coagulation uxjsn9403-62-60 10:15:00* Test Item Value Reference Range Interpretation Comments Prothrombin Time (test code = 5902-2) 14.3 11.9-14.5 [facility] HospitalINR in Platelet poor plasma by Coagulation nmfbm5142-12-64 10:15:00* Test Item Value Reference Range Interpretation Comments Prothromb Time International Ratio (test code = 6301-6) 1.05 Oral Anticoagulant Therapy INR Values:1. Low Intensity Therapy 1.5 - 2.02 . Moderate Intensity Therapy 2.0 - 3.03. High Intensity Therapy(1) 2.5 - 3. 54. High Intensity Therapy(2) 3.0 - 4.05. Panic Value INR > 5.0 [facility] HospitalActivated partial thromboplastin time (aPTT) in platelet poor plasma by coagulation psqfr9602-17-19 10:15:00* Test Item Value Reference Range Interpretation Comments Activated Partial Thromboplast Time (test code = 52390-4) 30.2 23.8-35.5 [facility] HospitalFluoroscopic procedure less than one hour dgitgsjp9928-19-52 10:15:00* Test Item Value Reference Range Interpretation Comments Lactic Acid Level (test code = Lactic Acid Level) 1.5 0.5- 2.0 [facility]-eVfb3464-82-03 10:15:00* Test Item Value Reference Range Interpretation Comments B-Type Natriuretic Peptide (test code = 05862-5) 32.1 0-100 [facility]viewerum or plasma thyrotropin measurement by detection limit <= 0.005 miu/l (units/volume)2020-04-01 10:15:00* Test Item Value Reference Range Interpretation Comments Thyroid Stimulating Hormone (TSH) (test code = 97928-1) 1.327 0.350-4.940 [facility] HospitalBlood jcelysj7420-01-27 10:15:00* Test Item Value Reference Range Interpretation Comments Blood Culture (test code = 95427498) NO GROWTH AFTER 5 DAYS, FINAL REPORT [facility] HospitalProthrombin time (PT) in platelet poor plasma by coagulation shkcx8319-44-88 10:15:00* Test Item Value Reference Range Interpretation Comments Prothrombin Time (test code = 5902-2) 14.3 11.9-14.5 [facility] HospitalINR in Platelet poor plasma by Coagulation cefqq6403-85-79 10:15:00* Test Item Value Reference Range Interpretation Comments Prothromb Time International Ratio (test code = 6301-6) 1.05 Oral Anticoagulant Therapy INR Values:1. Low Intensity Therapy 1.5 - 2.02 . Moderate Intensity Therapy 2.0 - 3.03. High Intensity Therapy(1) 2.5 - 3. 54. High Intensity Therapy(2) 3.0 - 4.05. Panic Value INR > 5.0 [facility] HospitalActivated partial thromboplastin time (aPTT) in platelet poor plasma by coagulation ltbgq8167-98-76 10:15:00* Test Item Value Reference Range Interpretation Comments Activated Partial Thromboplast Time (test code = 18949-4) 30.2 23.8-35.5 [facility] HospitalFluoroscopic procedure less than one hour eptmrwyl6174-65-73 10:15:00* Test Item Value Reference Range Interpretation Comments Lactic Acid Level (test code = Lactic Acid Level) 1.5 0.5- 2.0 [facility] HospitalBNP Jak-pXhd4387-17-03 10:15:00* Test Item Value Reference Range Interpretation Comments B-Type Natriuretic Peptide (test code = 67564-5) 32.1 0-100 [facility] HospitalBlood jwemync7649-77-86 10:15:00* Test Item Value Reference Range Interpretation Comments Blood Culture (test code = 46023784) NO GROWTH AFTER 5 DAYS, FINAL REPORT [facility] HospitalCHEST SINGLE (PORTABLE)2020-03-13 18:24:00 [place] [address] Patient Name: NOEMY ARGUETA MR #: [id number] : 1935 Age/Sex: 84/M Req #: [id number] Adm Physician: Ordered by: PER AU MD Report #: [id number] Location: ER Room/Bed: Procedure: [id number] DX/CHEST SINGLE (PORTABLE) Exam Date: 03/13/20 Exam [...] MAGALLANES MD, MD on 03/13/201827 Transcribed By: STEPH JACOBSEN on 03/13/201827 COPY TO: PER AU MD Bedside Glucose 2019-05-15 11:35:00* Test Item Value Reference Range Interpretation Comments Bedside Glucose (test code = 87706-8) 123 70-120 H Meter ID: [id number] [facility] CampusClumped Platelets 2019-05-15 08:26:00* Test Item Value Reference Range Interpretation Comments Clumped Platelets (test code = 7796-6) NONE NONE [facility]viewodium Jwcvk4521-61-69 05:59:00* Test Item Value Reference Range Interpretation Comments Sodium Level (test code = 2951-2) 141 136-145 [facility] HospitalPotassium Ofnyq6296-37-39 05:59:00* Test Item Value Reference Range Interpretation Comments Potassium Level (test code = 2823-3) 3.4 3.5-5.1 L [facility] HospitalChloride Oblat7951-70-85 05:59:00* Test Item Value Reference Range Interpretation Comments Chloride Level (test code = 2075-0) 110 98-107 H [facility] HospitalCarbon Dioxide Shhpi3676-71-76 05:59:00* Test Item Value Reference Range Interpretation Comments Carbon Dioxide Level (test code = 2028-9) 23 22-29 [facility] HospitalAnion Anq9089-66-16 05:59:00* Test Item Value Reference Range Interpretation Comments Anion Gap (test code = 96060-5) 11.4 8-16 [facility] HospitalBlood Urea Qvbbkehb4739-55-83 05:59:00* Test Item Value Reference Range Interpretation Comments Blood Urea Nitrogen (test code = 3094-0) 15 7-26 [facility]Creatinine2019-08-16 05:59:00* Test Item Value Reference Range Interpretation Comments Creatinine (test code = 2160-0) 0.96 0.72-1.25 [facility] HospitalBUN/Creatinine Jwqxh7237-42-12 05:59:00* Test Item Value Reference Range Interpretation Comments BUN/Creatinine Ratio (test code = 3097-3) 16 6-25 [facility] HospitalEstimat Glomerular Filtration Rate 2019-05-15 05:59:00* Test Item Value Reference Range Interpretation Comments Estimat Glomerular Filtration Rate (test code = 709835195) > 60 >60 Ranges were taken from the National Kidney Disease Education Program and the [facility] Kidney Foundation literature.Reference ranges:60 or greater: Dimuhu57-48 ( for 3 consecutive months): Chronic kidney disease 15 or less: Kidney failurePalo Pinto [facility] HospitalGlucose Ocfht3286-69-71 05:59:00* Test Item Value Reference Range Interpretation Comments Glucose Level (test code = HBZ5851) 122 74-118 H [facility] HospitalCalcium Xucub1276-02-89 05:59:00* Test Item Value Reference Range Interpretation Comments Calcium Level (test code = 29000-1) 7.6 8.4-10.2 L [facility] HospitalTotal Ocekrggrg6483-63-50 05:59:00* Test Item Value Reference Range Interpretation Comments Total Bilirubin (test code = 1975-2) 0.3 0.2-1.2 [facility] HospitalAspartate Amino Transf (AST/SGOT) 2019-05-15 05:59:00* Test Item Value Reference Range Interpretation Comments Aspartate Amino Transf (AST/SGOT) (test code = Aspartate Amino Transf (AST/SGOT)) 15 5-34 [facility] HospitalAlanine Aminotransferase (ALT/SGPT) 2019-05-15 05:59:00* Test Item Value Reference Range Interpretation Comments Alanine Aminotransferase (ALT/SGPT) (test code = 1742-6) 6 0-55 [facility] HospitalTotal Ztfhjmm0985-28-17 05:59:00* Test Item Value Reference Range Interpretation Comments Total Protein (test code = 2885-2) 4.8 6.5-8.1 L [facility] HospitalAlbumin2019-08-16 05:59:00* Test Item Value Reference Range Interpretation Comments Albumin (test code = 1751-7) 2.1 3.5-5.0 L [facility] HospitalGlobulin2019-08-16 05:59:00* Test Item Value Reference Range Interpretation Comments Globulin (test code = 20693-9) 2.7 2.3-3.5 [facility] HospitalAlbumin/Globulin Raalz5714-87-72 05:59:00 * Test Item Value Reference Range Interpretation Comments Albumin/Globulin Ratio (test code = 1759-0) 0.8 0.8-2.0 [facility] HospitalAlkaline Uonxasfgeoh7726-23-89 05:59:00* Test Item Value Reference Range Interpretation Comments Alkaline Phosphatase (test code = 6768-6) 56 40-150 [facility] HospitalWhite Blood Ipxmm7570-21-18 05:58:00* Test Item Value Reference Range Interpretation Comments White Blood Count (test code = 6690-2) 7.18 4.8-10.8 [facility] HospitalRed Blood Drswe9546-45-16 05:58:00* Test Item Value Reference Range Interpretation Comments Red Blood Count (test code = 789-8) 3.55 4.3-5.7 L [facility] HospitalHemoglobin2019-08-16 05:58:00* Test Item Value Reference Range Interpretation Comments Hemoglobin (test code = 93060-4) 10.7 14.0-18.0 L [facility] HospitalHematocrit2019-08-16 05:58:00* Test Item Value Reference Range Interpretation Comments Hematocrit (test code = 4544-3) 32.4 38.2-49.6 L [facility] HospitalMean Corpuscular Hxwcpu0558-39-30 05:58:00* Test Item Value Reference Range Interpretation Comments Mean Corpuscular Volume (test code = 787-2) 91.3 81-99 [facility] HospitalMean Corpuscular Syzrydcmaw7725-73-02 05:58:00* Test Item Value Reference Range Interpretation Comments Mean Corpuscular Hemoglobin (test code = 785-6) 30.1 28-32 [facility] HospitalMean Corpuscular Hemoglobin Concent 2019-05-15 05:58:00* Test Item Value Reference Range Interpretation Comments Mean Corpuscular Hemoglobin Concent (test code = 786-4) 33.0 31-35 [facility] HospitalRed Cell Distribution Jjrou2785-47-48 05:58:00* Test Item Value Reference Range Interpretation Comments Red Cell Distribution Width (test code = 24877-2) 13.7 11.7 -14.4 [facility] HospitalPlatelet Ljkkr5056-16-08 05:58:00* Test Item Value Reference Range Interpretation Comments Platelet Count (test code = 777-3) 134 140-360 L [facility] HospitalNeutrophils (%) (Auto)2019-05-15 05:58:00 * Test Item Value Reference Range Interpretation Comments Neutrophils (%) (Auto) (test code = 17584-8) 68.2 38.7-80.0 [facility] HospitalLymphocytes (%) (Auto)2019-05-15 05:58:00 * Test Item Value Reference Range Interpretation Comments Lymphocytes (%) (Auto) (test code = 736-9) 19.8 18.0-39.1 [facility] HospitalMonocytes (%) (Auto)2019-05-15 05:58:00* Test Item Value Reference Range Interpretation Comments Monocytes (%) (Auto) (test code = 5905-5) 9.9 4.4-11.3 [facility] HospitalEosinophils (%) (Auto)2019-05-15 05:58:00 * Test Item Value Reference Range Interpretation Comments Eosinophils (%) (Auto) (test code = 713-8) 1.3 0.0-6.0 [facility] HospitalBasophils (%) (Auto)2019-05-15 05:58:00* Test Item Value Reference Range Interpretation Comments Basophils (%) (Auto) (test code = 706-2) 0.4 0.0-1.0 [facility] HospitalIM GRANULOCYTES %2019-05-15 05:58:00* Test Item Value Reference Range Interpretation Comments IM GRANULOCYTES % (test code = IM GRANULOCYTES %) 0.4 0.0- 1.0 [facility] HospitalNeutrophils # (Auto)2019-05-15 05:58:00* Test Item Value Reference Range Interpretation Comments Neutrophils # (Auto) (test code = 751-8) 4.9 2.1-6.9 [facility] HospitalLymphocytes # (Auto)2019-05-15 05:58:00* Test Item Value Reference Range Interpretation Comments Lymphocytes # (Auto) (test code = 47905-2) 1.4 1.0-3.2 [facility] HospitalMonocytes # (Auto)2019-05-15 05:58:00* Test Item Value Reference Range Interpretation Comments Monocytes # (Auto) (test code = 742-7) 0.7 0.2-0.8 [facility] HospitalEosinophils # (Auto)2019-05-15 05:58:00* Test Item Value Reference Range Interpretation Comments Eosinophils # (Auto) (test code = 711-2) 0.1 0.0-0.4 [facility] HospitalBasophils # (Auto)2019-05-15 05:58:00* Test Item Value Reference Range Interpretation Comments Basophils # (Auto) (test code = 704-7) 0.0 0.0-0.1 [facility] HospitalAbsolute Immature Granulocyte (auto 2019-05-15 05:58:00* Test Item Value Reference Range Interpretation Comments Absolute Immature Granulocyte (auto (faye t code = Absolute Immature Granulocyte (auto) 0.03 0-0.1 [facility] HospitalBlood Bawoidi9301-61-09 23:56:00* Test Item Value Reference Range Interpretation Comments Blood Culture (test code = 03952283) NO GROWTH AFTER 24 HOURS [facility] HospitalHIPS BILAT TWO VWS(+/- PELVIS)2019-05-14 17:32:00 [place] [address] Patient Name: NOEMY ARGUETA MR #: [id number] : 1935 Age/Sex: 83/M Req #: [id number] Adm Physician: HAZEL SHAW MD Ordered by: HAZEL SHAW MD Report #: [id number] Location: MED/SURG2 Room/Bed: [facility] Procedure: 8232-6582 D X/HIPS BILAT TWO VWS(+/- PELVIS) Exam [...] COPY TO: HAZEL SHAW MD Creatine Kinase OJ7812-59-39 09:00:00* Test Item Value Reference Range Interpretation Comments Creatine Kinase MB (test code = 04763-2) 5.60 0-5.0 H [facility] HospitalTroponin S8437-65-06 09:00:00* Test Item Value Reference Range Interpretation Comments Troponin I (test code = KTN0957) 0.015 0-0.300 [facility] HospitalCreatine Odzqqj4114-65-36 08:35:00* Test Item Value Reference Range Interpretation Comments Creatine Kinase (test code = 2157-6) 257 30-200 H [facility] HospitalUrine TWY6476-55-93 03:56:00* Test Item Value Reference Range Interpretation Comments Urine WBC (test code = 5821-4) 0-5 0-5 [facility] HospitalUrine IPI3795-52-39 03:56:00* Test Item Value Reference Range Interpretation Comments Urine RBC (test code = 98762-4) 0-5 0-5 [facility] HospitalUrine Dndrdjvl5271-57-73 03:56:00* Test Item Value Reference Range Interpretation Comments Urine Bacteria (test code = 21522-6) RARE NONE [facility] HospitalUrine Epithelial Jxjdp0635-18-56 03:56:00 * Test Item Value Reference Range Interpretation Comments Urine Epithelial Cells (test code = 97743-8) FEW NONE [facility] HospitalUrine Afcnw4255-42-17 03:50:00* Test Item Value Reference Range Interpretation Comments Urine Color (test code = 5778-6) YELLOW YELLOW [facility] HospitalUrine Zcfhkby8304-62-60 03:50:00* Test Item Value Reference Range Interpretation Comments Urine Clarity (test code = 94466-8) CLEAR CLEAR [facility] HospitalUrine Specific Szhcbje6377-24-69 03:50:00 * Test Item Value Reference Range Interpretation Comments Urine Specific [place] (test code = 5811-5) <=1.005 1.010-1.02 5 [facility] HospitalUrine vX2664-98-44 03:50:00* Test Item Value Reference Range Interpretation Comments Urine pH (test code = 73541-2) 6 5-7 [facility] HospitalU[facility] Leukocyte Rgdvhyga1302-23-46 03:50:00* Test Item Value Reference Range Interpretation Comments Urine Leukocyte Esterase (test code = 81021-7) NEGATIVE NEGATIV E [facility] HospitalUrine Fjdwgze0327-96-69 03:50:00* Test Item Value Reference Range Interpretation Comments Urine Nitrite (test code = 93926-0) NEGATIVE NEGATIVE [facility] HospitalUrine Yplgyhs9805-51-41 03:50:00* Test Item Value Reference Range Interpretation Comments Urine Protein (test code = 61757-5) NEGATIVE NEGATIVE [facility] HospitalUrine Glucose (UA)2019-05-14 03:50:00* Test Item Value Reference Range Interpretation Comments Urine Glucose (UA) (test code = 55452-8) NEGATIVE NEGATIVE [facility] HospitalUrine Gqekuol6691-90-01 03:50:00* Test Item Value Reference Range Interpretation Comments Urine Ketones (test code = 39755-9) NEGATIVE NEGATIVE [facility] HospitalUrine Mmrjaesdmjmo4601-92-60 03:50:00* Test Item Value Reference Range Interpretation Comments Urine Urobilinogen (test code = 44205-1) 0.2 0.2-1 [facility] HospitalUrine Jbwknpxne3560-64-03 03:50:00* Test Item Value Reference Range Interpretation Comments Urine Bilirubin (test code = 1977-8) NEGATIVE NEGATIVE [facility] HospitalUrine Ultzf5150-94-73 03:50:00* Test Item Value Reference Range Interpretation Comments Urine Blood (test code = 45057-0) NEGATIVE NEGATIVE [facility] HospitalUrine Opiates Ftmoyw4016-34-17 03:49:00* Test Item Value Reference Range Interpretation Comments Urine Opiates Screen (test code = 06816-3) POSITIVE NEGATIVE H ALL TESTS PERFORMED MANUALLY ON [employer] TOX/SEE TEST This test provides only a sc reen. Positive results should be repeated by a confirmatory test.[facility] Barbiturates Ooijar5452-22-39 03:49:00* Test Item Value Reference Range Interpretation Comments Urine Barbiturates Screen (test code = 457283393) NEGATIVE NEGA TIVE [facility] HospitalUrine Phencyclidine Otoekb3955-71-04 03:49:00* Test Item Value Reference Range Interpretation Comments Urine Phencyclidine Screen (test code = 65986-5) NEGATIVE NEGAT VALENTINE [facility] HospitalUrine Amphetamines Heaatg8155-26-81 03:49:00* Test Item Value Reference Range Interpretation Comments Urine Amphetamines Screen (test code = 24287-7) NEGATIVE NEGATI VE [facility] HospitalU[facility] Methamphetamines Igbkpp8692-62-29 03:49:00* Test Item Value Reference Range Interpretation Comments Urine Methamphetamines Screen (test code = Urine Metha mphetamines Screen) NEGATIVE NEGATIVE [facility] HospitalU[facility] Benzodiazepines Cjdgfc7032-31-76 03:49:00* Test Item Value Reference Range Interpretation Comments Urine Benzodiazepines Screen (test code = 02803-7) POSITIVE NEG ATIVE H This test provides only a screen. Positive results should be repeated by a confi rmatory test.[facility] HospitalUrine Cocaine Screen 2019-05-14 03:49:00* Test Item Value Reference Range Interpretation Comments Urine Cocaine Screen (test code = 3398-5) NEGATIVE NEGATIVE [facility] HospitalU[facility] Cannabinoids Jlpitt5740-82-59 03:49:00* Test Item Value Reference Range Interpretation Comments Urine Cannabinoids Screen (test code = 66626-5) NEGATIVE NEGATI VE THESE RESULTS ARE FOR MEDICAL TREATMENT ONLYTHIS REPORT CONTAINS UNCONFIR MED SCREENING RESULTS*POSITIVE RESULTS WILL BE CONFIRMED BY REFERENCE LAB UPON R EQUEST CUT-OFFDRUG CLASS CONCENTRATION ng/mLAmphetamines 1000Methamphetamines 1000Cocaine 300Opiate 300Phencyc lidine 25Cannabinoid 50Barbiturates 300Benzodiazepine 300Methadone 300[facility] Methadone Ygphrn5579-69-24 03:49:00* Test Item Value Reference Range Interpretation Comments Urine Methadone Screen (test code = 52435-5) NEGATIVE NEGATIVE THESE RESULTS ARE FOR MEDICAL TREATMENT ONLYTHIS REPORT CONTAINS UNCONFIR MED SCREENING RESULTS*POSITIVE RESULTS WILL BE CONFIRMED BY REFERENCE LAB UPON R EQUEST CUT-OFFDRUG CLASS CONCENTRATION ng/mLAmphetamines 1000Methamphetamines 1000Cocaine Metabolite 300Opiate 300Phencyc lidine 25Cannabinoid 50Barbiturates 300Benzodiazepine 300Methadone 300[facility] CampusCT CERVICAL SPINE YU3106-83-74 00:55:00 [place] [address] Patient Name: NOEMY ARGUETA MR #: [id number] : 1935 Age/Sex: 83/M Req #: [id number] Adm Physician: Ordered by: CINDY BURROWS MD Report #: [id number] Location: ER Room/Bed: Procedure: 43 CT/CT CERVICAL SPINE WO Exam Date: 05/13/19 Exam Time: 7454 REPORT STATUS: Signed History: Fall. Comparison studies: [...] foraminal stenosis. . IMPRESSION: 1. [place] cervical spine fracture or dislocation. Reversal of [...] BURROWS MD CHEST SINGLE (PORTABLE) 2019-05-14 00:53:00 [place] [address] Patient Name: NOEMY ARGUETA MR #: [id number] : 1935 Age/Sex: 83/M Req #: [id number] Adm Physician: Ordered by: CINDY BURROWS MD Report #: [id number] Location: ER Room/Bed: Procedure: 60 DX/CHEST SINGLE [...] COPY TO: CINDY BURROWS MD CT BRAIN TD1359-53-73 00:47:00 [place] [address] Patient Name: NOEMY ARGUETA MR #: [id number] : 1935 Age/Sex: 83/M Req #: [id number] Adm Physician: Ordered by: CINDY BURROWS MD Report #: [id number] Location: ER Room/Bed: Procedure: 42 CT/CT BRAIN [...] COPY TO: CINDY BURROWS MD Lactic Acid Kxaty2282-21-56 00:36:00* Test Item Value Reference Range Interpretation Comments Lactic Acid Level (test code = Lactic Acid Level) 18.7 4.5- 19.8 [facility] 2 FHVMH4690-40-39 17:12:00 [facility] [address] [place] [address] Patient Name: NOEMY ARGUETA MR #: [id number] : 1935 Age/Sex: 83/M Req #: [id number] Adm Physician: Ordered by: ELMIRA HUGHES MD Report #: [id number] Location: OR Room/Bed: Procedure: 5832-5106 DX/CH EST 2 VIEWS Exam Date: 03/11/19 [...] on 03/11/191718 COPY TO: ELMIRA HUGHES MD MBMCHO0561-77-94 17:11:00* Test Item Value Reference Range Interpretation Comments GLUBED (test code = GLUBED) 98 mg/dL 74-106 N [facility] certified work [facility] XVEKTT6972-74-35 12:12:00* Test Item Value Reference Range Interpretation Comments GLUBED (test code = GLUBED) 163 mg/dL 74-106 H Performed by certified work car operator at [facility]~ KCNRWC9710-54-21 08:00:00* Test Item Value Reference Range Interpretation Comments GLUBED (test code = GLUBED) 90 mg/dL 74-106 N Performed by certified work car operator at [facility]~ BASIC METABOLIC XBARD5902-28-63 05:35:00* Test Item Value Reference Range Interpretation [...] CK) 2348 IUnit/L 26-208 H BASIC METABOLIC ZKFME1363-98-98 05:16:00* Test Item Value Reference Range Interpretation [...] (CK) (test code = CK) IUnit/L 26-208 UPXRCS3286-71-54 20:59:00* Test Item Value Reference Range Interpretation Comments GLUBED (test code = GLUBED) 125 mg/dL 74-106 H Performed by certified work car operator [facility]~ FAEECJ6316-42-52 16:45:00* Test Item Value Reference Range Interpretation Comments GLUBED (test code = GLUBED) 107 mg/dL 74-106 H Performed by certified work car operator at [facility] URINALYSIS EWKVGQYW0984-20-09 13:53:00* Test Item Value Reference Range Interpretation [...] FEW #/HPF NONE Urine Source? Clean CatchURINALYSIS PAANEXTG2396-72-96 13:49:00* Test Item Value Reference Range Interpretation [...] BACU) per HPF NONE Urine Source? Clean KmsauZMYZJW3597-63-01 12:47:00* Test Item Value Reference Range Interpretation Comments GLUBED (test code = GLUBED) 114 mg/dL 74-106 H Performed by certified work car operator [facility] OVWMMC6227-99-70 08:17:00* Test Item Value Reference Range Interpretation Comments GLUBED (test code = GLUBED) 96 mg/dL 74-106 N Performed by certified work car operator at [facility] BASIC METABOLIC CSALA1392-08-94 08:12:00* Test Item Value Reference Range Interpretation [...] CK) 5208 IUnit/L 26-208 H BASIC METABOLIC WSAZA2382-72-43 07:39:00* Test Item Value Reference Range Interpretation [...] (CK) (test code = CK) IUnit/L 26-208 IMYBFH2384-73-75 21:50:00* Test Item Value Reference Range Interpretation Comments GLUBED (test code = GLUBED) 117 mg/dL 74-106 H Performed by certified work car operator at [facility] - CT L-SPINE W/O JEZPWLUP6083-93-80 19:37:00 Name: NOEMY ARGUETA [facility] : 1935 Age/S: 83 / M [address] [facility]: [id number] Loc: [place] [address] Phys: Shannon Corey MD Acct: [id number] Dis Date: Status: ADM IN PHONE #: [phone] Exam Date: 01/21/2019 191 FAX #: [phone] Reason: H/o fall EXAMS: CPT CODE: [id number] CT L-SPINE W/O CONTRAST 70543 REASON FOR EXAM: H/o fall EXAM ORDER DATE: 01/21/2019 1:48 PM Ordering M.D.: Shannon Corey MD PROCEDURE: - CT L-SPINE [...] W/O CONTRAST 2019-01-21 19:35:00 Name: NOEMY ARGUETA [facility] : 1935 Age/S: 83 / M [address] [facility] Unit #: [id number] Loc: [place] [address] Phys: Shannon Corey MD Acct: [id number] Dis Date: Status: ADM IN PHONE #: [phone] Exam Date: 01/21/20191918 FAX #: [phone] Reason: H/o fall EXAMS: CPT CODE: [id number] CT T-SPINE W/O CONTRAST 00524 REASON FOR EXAM: H/o fall EXAM ORDER [...] W/O CONTRAST 2019-01-21 19:34:00 Name: NOEMY ARGUETA [facility] : 1935 Age/S: 83 / M [address] [facility] Unit #: [id number] Loc: [place] [address] Phys: Shannon Corey MD Acct: [id number] Dis Date: Status: ADM IN PHONE #: [phone] Exam Date: 01/21/20191918 FAX #: [phone] Reason: H/o fall EXAMS: CPT CODE: [id number] CT C-SPINE W/O CONTRAST 32617 REASON FOR EXAM: H/o fall EXAM ORDER [...] (1936) CTDI: DLP: PAGE 1 Signed Report [id number] 15:53:00* Test Item Value Reference Range Interpretation Comments GLUBED (test code = GLUBED) 120 mg/dL 74-106 H Performed by certified work car operator at [facility] - XR RIBS UNI W/CXR 3+V PN8147-56-77 12:17:00 FAX: Obey De Souza MD [phone] [place]: St: [facility] FAX: David Goldstein MD [phone] Name: NOEMY ARGUETA [facility] : 1935 Age/S: 83/M [address] [facility] Unit #: [id number] Loc: [address] [place] [address] Phys: Obey De Souza MD Acct: [id number] Dis Date: Status: ADM IN PHONE #: [phone] Exam Date: 01/20/20192254 FAX #: [phone] Reason: rib pain, fall EXAMS: CPT CODE: [id number] XR RIBS UNI W/CXR 3+[place] [address] HISTORY: Pain after fall. COMPARISON: Chest x-ray [...] By: [email or web address] Orig Print D/T: S: 01/22/2019 (1149) PAGE 1 Signed Report [id number] 12:13:00* Test Item Value Reference Range Interpretation Comments GLUBED (test code = GLUBED) 114 mg/dL 74-106 H Performed by certified work car operator at [facility] - CT HEAD/BRAIN W/O [id number] 12:02:00 Name: NOEMY ARGUETA [facility] : 1935 Age/S: 83 / M [address] [facility] Unit #: [id number] Loc: [place] [address] Phys: Obey De Souza MD Acct: [id number] Dis Date: Status: ADM IN PHONE #: [phone] Exam Date: 01/20/2019 2300 FAX #: [phone] Reason: fall/AMS EXAMS: CPT CODE: [id number] CT HEAD/BRAIN W/O CONT 67567 HISTORY: Confusion. COMPARISON: None available. CT brain [...] De Souza MD; David Edwards MD Technologist:[place] CTDI: DLP: Trnscb Date/Time: 01/21/2019 (1202) [email or web address] Orig Print D/T: S: 01/21/2019 (5774) CTDI: DLP: PAGE 1 Signed Report [id number] 07:52:00* Test Item Value Reference Range Interpretation Comments GLUBED (test code = GLUBED) 100 mg/dL 74-106 N Performed by certified work car operator at [facility] BASIC METABOLIC EGIYD2013-37-96 23:39:00* Test Item Value Reference Range Interpretation [...] CK) 7841 IUnit/L 26-208 H BASIC METABOLIC DPKAF8315-33-28 23:09:00* Test Item Value Reference Range Interpretation [...] code = CK) IUnit/L 26-208 BASIC METABOLIC WAZJS3417-48-05 23:02:00* Test Item Value Reference Range Interpretation [...] code = CK) IUnit/L 26-208 CBC W/AUTO ALEH6767-05-95 22:47:00* Test Item Value Reference Range Interpretation [...] (test code = MDIFF) NO CBC W/AUTO JDKA0937-69-44 22:39:00* Test Item Value Reference Range Interpretation [...] BA#) K/mm3 0.0-0.2 XR RIBS UNILATERAL/ PA BEHTW8896-11-48 14:04:37Procedures: XR RIBS UNILATERAL/ PA CHESTExam Date: [...] By: AG WATSONDate: 02/23/2018 14:04MRI BRAIN WO [place] [address] Patient Name: NOEMY ARGUETA MR #: [id number] : 1935 Age/Sex: 82/M Req #: [id number] Adm Physician: KLAUDIA ARZOLA MD Ordered by: CARISSA ROSAS MD Report #: [id number] Location: [facility] Room/Bed: [place] [address] Procedure: 4770-3661 MRI /MRI BRAIN WO Exam Date: 06/28/17 [...] TO: CARISSA ROSAS MD CHEST SINGLE (PORTABLE) [place] [address] Patient Name: NOEMY ARGUETA MR #: [id number] : 1935 Age/Sex: 82/M Req #: [id number] Adm Physician: Ordered by: ABEL DE LEÓN Report #: [id number] Location: ER Room/Bed: Procedure: 0471-7241 DX/CHEST SINGLE (PORTABLE) Ex am Date: 06/28/17 [...] TO: ABEL DE LEÓN CT BRAIN WO [place] [address] Patient Name: NOEMY ARGUETA MR #: [id number] : 1935 Age/Sex: 82/M Req #: [id number] Adm Physician: Ordered by: ABEL DE LEÓN Report #: [id number] Location: ER Room/Bed: Procedure: 0292-8313 CT/CT BRAIN WO Exam Date: Exam Time: [...] AM Dictated By: CALLIE LOYA MD 113 COPY TO: SALTY DE LEÓN CT BRAIN WO [place] [address] Patient Name: NOEMY ARGUETA MR #: [id number] : 1935 Age/Sex: 82/M Req #: [id number] Adm Physician: Ordered by: MELANIE PRAKASH MD Report #: [id number] Location: ER Room/Bed: Procedure: 5400-6201 CT/CT BRAIN WO Exam Date: Exam Time: 1745 REPORT STATUS: Signed Examination: CT BRAIN WITHOUT [...]
[2020-08-07 17:42] LABS: BASOPHILS % 0.5 % (0.0-1.0); EOSINOPHILS # (AUTO) 0.1 (0.0-0.4); EOSINOPHILS % 0.8 % (0.0-6.0); HEMATOCRIT 40.3 % (38.2-49.6); HEMOGLOBIN 13.5 g/dL (14.0-18.0); LYMPHOCYTES # (AUTO) 1.3 (1.0-3.2); MEAN CORPUSCULAR HEMOGLOBIN 29.8 pg (28-32); MEAN CORPUSCULAR HGB CONC 33.5 g/dL (31-35); MONOCYTES # (AUTO) 0.7 (0.2-0.8); MONOCYTES % 11.2 % (4.4-11.3); NEUTROPHILS % 65.8 % (38.7-80.0); PLATELET COUNT 167 x10e3/uL (140-360); RED BLOOD COUNT 4.53 x10e6/uL (4.3-5.7); RED CELL DISTRIBUTION WIDTH 12.8 % (11.7-14.4)
[2020-08-07 17:58] LABS: ALANINE AMINOTRANSFERASE 10 IU/L (0-55); ALBUMIN/GLOBULIN RATIO 0.9 (0.8-2.0); ALKALINE PHOSPHATASE 65 IU/L (40-150); ANION GAP 12.2 mmol/L (8-16); BLOOD UREA NITROGEN 11 mg/dL (7-26); BUN/CREATININE RATIO 10 (6-25); CALCIUM 8.6 mg/dL (8.4-10.2); CARBON DIOXIDE 23 mmol/L (22-29); CHLORIDE 102 mmol/L (98-107); CREATINE KINASE 37 IU/L (30-200); CREATININE, SERUM 1.12 mg/dL (0.72-1.25); EST GLOMERULAR FILTRATION RATE > 60 ML/MIN (60-); GLUCOSE 119 mg/dL (74-118); POTASSIUM 4.2 mmol/L (3.5-5.1); SODIUM 133 mmol/L (136-145)
[2020-08-07 18:07] LABS: BILIRUBIN,URINE NEGATIVE (NEGATIVE); CLARITY,URINE HAZY (CLEAR); COLOR,URINE YELLOW (YELLOW); KETONES,URINE NEGATIVE (NEGATIVE); LEUKOCYTE ESTERASE ,URINE NEGATIVE (NEGATIVE); NITRITE,URINE NEGATIVE (NEGATIVE); PROTEIN,URINE DIPSTICK NEGATIVE (NEGATIVE); URINE UROBILINOGEN 0.2 mg/dL (0.2 - 1)
[2020-08-07 18:09] LABS: BACTERIA,URINE FEW /HPF; EPITHELIAL CELLS,URINE FEW /LPF; RBC,URINE 0-5 /HPF (0-5); WBC,URINE (MAN) 0-5 /HPF (0-5)
--- NOTE | 2020-08-07 18:26 | Emergency Department Note ---
History of Present Illnes History of Present Illness Chief Complaint: Abdominal Complaints History of Present Illness This is a 85 year old male NAUSEA X 6 MONTHS. PATIENT STATES HE HAS BEEN RECEIVING TREATMENTS FROM DR. Sarahi ARZOLA THAT HAS NOT BEEN WORKING. DENIES ANY VOMITING. DENIES ANY ABDOMINAL PAIN. DIARRHEA STARTED 2 DAYS X 2 EPISODES. HE S[address] ARZOLA AND HE TOLD HIM HE WOULD MEET HIM HERE . 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 Any updates have been documented here. Past Medical History Recent Fever: No Clinical Suspicion of Infectio: No New/Unexplained Change in Ment: No Past Medical History: A-Fib, GERD, Osteoarthritis Other Medical History: restless leg Past Surgical History: Cholecysctectomy, Hernia Repair Other Surgery: knee repair, Social History Smoking Cessation: Never Smoker Alcohol Use: None Any Illegal Drug Use: No Family History Family history of heart diseas: No Other Last Tetanus: UTD Any Pre-Existing Lines (PICC,: Yes Review of Systems Review of Systems Constitutional: Reports no symptoms EENTM: Reports no symptoms Cardiovascular: Reports no symptoms Respiratory: Reports no symptoms Gastrointestinal: Reports as per HPI Genitourinary: Reports no symptoms Musculoskeletal: Reports no symptoms Integumentary: Reports no symptoms Neurological: Reports no symptoms Psychological: Reports no symptoms Endocrine: Reports no symptoms Hematological/Lymphatic: Reports no symptoms Review of other systems: All other systems negative Physical Exam Related Data Allergies: Coded Allergies: latex (Verified Allergy, Unknown, RASH, 08/07/20) Triage Vital Signs Vital Signs Date Time Temp Pulse Resp B/P (MAP) Pulse Ox O2 Delivery O2 Flow Rate FiO2 08/07/20 16:43 97.6 65 18 131/75 100 Room Air Vital signs reviewed: Yes Physical Exam CONSTITUTIONAL Constitutional: Present well-developed, Present well-nourished HENT HENT: Present normocephalic, Present atraumatic, Present oropharynx clear/moist, Present nose normal HENT L/R: Present left ext ear normal, Present right ext ear normal EYES Eyes: Reports PERRL, Reports conjunctivae normal NECK Neck: Present ROM normal PULMONARY Pulmonary: Present effort normal, Present breath sounds normal CARDIOVASCULAR Cardiovascular: Present regular rhythm, Present heart sounds normal, Present capillary refill normal, Present normal rate GASTROINTESTINAL Abdominal: Present soft, Present nontender, Present bowel sounds normal GENITOURINARY Genitourinary: Present exam deferred SKIN Skin: Present warm, Present dry MUSCULOSKELETAL Musculoskeletal: Present ROM normal NEUROLOGICAL Neurological: Present alert, Present oriented x 3, Present no gross motor or sensory deficits PSYCHOLOGICAL Psychological: Present mood/affect normal, Present judgement normal Results Laboratory Result Diagram: 08/07/20172408/07/201724 Laboratory Laboratory Tests Test 08/07/20 17:25 White Blood Count 6.14 x10e3/uL (4.8-10.8) Red Blood Count 4.53 x10e6/uL (4.3-5.7) Hemoglobin 13.5 g/dL (14.0-18.0) Hematocrit 40.3 % (38.2-49.6) Mean Corpuscular Volume 89.0 fL (81-99) Mean Corpuscular Hemoglobin 29.8 pg (28-32) Mean Corpuscular Hemoglobin Concent 33.5 g/dL (31-35) Red Cell Distribution Width 12.8 % (11.7-14.4) Platelet Count 167 x10e3/uL (140-360) Neutrophils (%) (Auto) 65.8 % (38.7-80.0) Lymphocytes (%) (Auto) 21.0 % (18.0-39.1) Monocytes (%) (Auto) 11.2 % (4.4-11.3) Eosinophils (%) (Auto) 0.8 % (0.0-6.0) Basophils (%) (Auto) 0.5 % (0.0-1.0) Neutrophils # (Auto) 4.0 (2.1-6.9) Lymphocytes # (Auto) 1.3 (1.0-3.2) Monocytes # (Auto) 0.7 (0.2-0.8) Eosinophils # (Auto) 0.1 (0.0-0.4) Basophils # (Auto) 0.0 (0.0-0.1) Absolute Immature Granulocyte (auto 0.04 x10e3/uL (0-0.1) Urine Color Yellow (YELLOW) Urine Clarity Hazy (CLEAR) Urine pH 7.5 (5 - 7) Urine Specific [place] 1.015 (1.010-1.025) Urine Protein Negative (NEGATIVE) Urine Glucose (UA) Negative (NEGATIVE) Urine Ketones Negative (NEGATIVE) Urine Blood Trace (NEGATIVE) Urine Nitrite Negative (NEGATIVE) Urine Bilirubin Negative (NEGATIVE) Urine Urobilinogen 0.2 mg/dL (0.2 - 1) Urine Leukocyte Esterase Negative (NEGATIVE) Urine RBC 0-5 /HPF (0-5) Urine WBC 0-5 /HPF (0-5) Urine Epithelial Cells Few /LPF (NONE) Urine Bacteria Few /HPF (NONE) Sodium Level 133 mmol/L (136-145) Potassium Level 4.2 mmol/L (3.5-5.1) Chloride Level 102 mmol/L (98-107) Carbon Dioxide Level 23 mmol/L (22-29) Anion Gap 12.2 mmol/L (8-16) Blood Urea Nitrogen 11 mg/dL (7-26) Creatinine 1.12 mg/dL (0.72-1.25) Estimat Glomerular Filtration Rate > 60 ML/MIN (60-) BUN/Creatinine Ratio 10 (6-25) Glucose Level 119 mg/dL (74-118) Calcium Level 8.6 mg/dL (8.4-10.2) Total Bilirubin 0.3 mg/dL (0.2-1.2) Aspartate Amino Transf (AST/SGOT) 17 IU/L (5-34) Alanine Aminotransferase (ALT/SGPT) 10 IU/L (0-55) Alkaline Phosphatase 65 IU/L (40-150) Creatine Kinase 37 IU/L (30-200) Creatine Kinase MB 1.40 ng/mL (0-5.0) Troponin I 0.005 ng/mL (0-0.300) Total Protein 6.2 g/dL (6.5-8.1) Albumin 3.0 g/dL (3.5-5.0) Globulin 3.2 g/dL (2.3-3.5) Albumin/Globulin Ratio 0.9 (0.8-2.0) Procedures 12 Lead ECG Interpretation ECG Interpretation : ECG: ECG 1 Ginseng Farmer: Interpreted by ED physician Date: Aug 07, 2020 Time: 18:29 Rhythm: sinus bradycardia Rate: bradycardia BPM: 57 ST segments normal: Yes T waves normal: Yes Other findings: LVH Clinical Impression: abnormal ECG Assessment & Plan Medical Decision Making MDM pt with nausea cbc, cmp, ekg, cardiac enzymes, ua ordered to eval for myocardial infarction, uti, electrolyte abnormality,elevated lft's, pancreatitis, pt refused ct abd/pelvis because he states he has had 3 this year and does not need another one i spoke m arzola and s arzola, place in obs, start on reglan, and clear liquid diet Assessment & Plan Final Impression: (1) Nausea (2) Severe nausea Depart Disposition: ADMITTED Last Vital Signs Date Time Temp Pulse Resp B/P (MAP) Pulse Ox O2 Delivery O2 Flow Rate FiO2 08/07/20 16:43 97.6 65 18 131/75 100 Room Air Home Meds Reported Medications Ondansetron Hcl* (ZOFRAN*) 4 Mg Tablet, 4 MG PO PRN 07/25/20 Chlordiazepoxide Hcl (CHLORDIAZEPOXIDE HCL) 10 Mg Capsule, PO DAILY, CAP 07/25/20 Docusate Sodium (DOCUSATE SODIUM) 100 Mg Capsule, 100 MG PO DAILY, CAP 07/25/20 Ropinirole Hcl (ROPINIROLE HCL) 1 Mg Tablet, 1 MG PO PRN, #30 TAB 07/25/20 Tramadol Hcl (TRAMADOL HCL) 100 Mg Tab.er.24h, PO PRN 07/25/20 [Promethazine] No Conflict Check, 25 MG PO PRN 07/21/20 Gabapentin (GABAPENTIN) 600 Mg Tablet, 100 MG PO TID 04/02/20 Pantoprazole Sodium* (PROTONIX) 40 Mg Tablet.dr, 40 MG PO DAILY 05/14/19 Atenolol (ATENOLOL) 50 Mg Tablet, 50 MG PO HS 05/09/17 Medications in the ED Metoclopramide HCl 10 mg ONCE ONCE IV ; Start 08/07/20 at 18:30; Stop 08/07/20 at 18:31 CINDY BURROWS MD Aug 07, 2020 18:26
[2020-08-07] MEDS ORDERED: METOCLOPRAMIDE HCL 10 MG/2ML VIAL IV ONE (18:30)
--- OUTSIDE RECORDS SUMMARY | 2020-08-07 18:42 | XMS REPORT | Continuity of Care Document ---
Author Author Red StampNOEMY Red Stamp Address Unknown Phone Unavailable Care Team Providers Care Access Specialist Name Role Phone Algolux Information [place] Unavailable Un available Problems Problem Status Onset [...] viral diseases Active Diagnosis 09/02/2019 Keegan Ingram residential (current) use of opiate analgesic Active Diagnosis [...] Orally Active 4mg Orally once a day [place] 04/22/2020 Keegan Ingram Tylenol/Codeine #3 1 tablet as needed Orally Active 300-30 MG Orally every 6 hrs [facility] 04/14/2020 Keegan Ingram Chlordiazepoxide HCl 1 capsule Orally Active 10 MG Orally Twice a day [facility] 04/14/2020 Keegan Ingram Tramadol HCl 1 tablet as needed Orally Active 50 mg Orally twice a day (bid) [place] 08/20/2019 Keegan Ingram Medrol Dose [place] as directed Orally Active 4mg Orally once a day [facility] 12/01/2018 Keegan Ingram Chlordiazepoxide HCl 1 capsule Orally Active 10 MG Orally Twice a day [place] 09/09/2018 Keegan Ingram Chlordiazepoxide HCl 1 capsule Orally Active 25 MG Orally tid for nausea [place] 08/12/2018 Keegan Ingram PredniSONE 1-2 tabs prn for ar thritis flare up Orally Active 5 MG Orally Once a day [facility] 08/05/2018 Keegan Ingram Zofran 1 tablet Orally Active 8 MG Orally Twice a day [facility] 08/05/2018 Keegan Ingram Tylenol/Codeine #3 1 tablet as needed Orally Active 300-30 MG Orally qid [place] 06/10/2018 Keegan Ingram Meclizine HCl 1 tablet as need ed Orally Active 25 MG Orally Once a day [place] 06/10/2018 Keegan Ingram Vitamin D (Ergocalciferol) 1 c apsule Orally Active 91413 UNIT Orally once a week [place] 12/17/2017 Keegan Ingram Simponi Aria as directed Intravenous Active 50 MG/4ML Intravenous [place] 09/02/2017 Keegan Ingram PredniSONE 1-2 tabs PRN Orally Active 5 MG Orally Once a day [place] 08/20/2017 Keegan Ingram PredniSONE 1-2 tabs PRN [...] 1000 UNIT Orally Once a day [place] eKegan Ingram Allergies, Adverse Reactions, Alerts Substance Category [...] Keegan Ingram Diastolic (mm Hg) 93 04/14/2020 eKegan Ingram Systolic (mm Hg) 140 04/14/2020 Keegan [...]
--- OUTSIDE RECORDS SUMMARY | 2020-08-07 18:43 | XMS REPORT | Continuity of Care Document ---
Author Author [facility] t Organization [facility] Address [address] [place] [id number] Phone Unavailable Care Team Providers Care Transformer Maker Name Role Phone MD KLAUDIA ARZOLA PCP KLAUDIA ARZOLA Attphys Unavailable DUCHAMPGerson RACQUEL Attphys Unavailable Gerson AU Attphys Unavailable NIECY ARZOLA Attphys Unavailable AG JACOBSEN Attphys Unavailable SHAW, Gerson OLIVA Attphys Unavailable ELMIRA HUGHES Attphys Unavailable JOE EASLEY Attphys Unavailable Gigi PRAKASH Attphys Unavailable KLAUDIA ARZOLA Admphys Unavailable AG JACOBSEN Admphys Unavailable SHAW, Gerson HZAEL Admphys Unavailable TRACEE PENNahomi Admphys Unavailable Payers Payer Name Policy Type Policy Number Effective Date Expiration Date S macie [facility] [id number] 2019 00:00:00 [facility] Problems Condition Name Condition Details Condition Category Status Onset Date Resolution Date Last Treatment Date Treating Clinician Comments Source Closed fracture of one rib Closed fracture of one rib Problem Active 2018-02-22 00:00:00 [facility] (LUF/IZAIAH/SA) Arthralgia of bilateral temporomandibular [...] [facility] Dizziness Dizziness Problem Active [facility] Foreign body in esophagus Esophageal foreign body Problem Active [facility] Fever Fever Problem Active [facility] Weakness Generalized weakness Problem Active [facility] Pill esophagitis Pill esophagitis Problem Active [facility] Pneumonia Pneumonia Problem Active [facility] Nausea Problem Active [facility] Pre-syncope Problem Active [facility] Constipation Problem Active [facility] Mass of right kidney Problem Active [facility] Weight loss Problem Active [facility] Knee pain, right Knee pain, right [...] 04/24/2020 Keegan Ingram Problem Active 2020-04-24 02:45:06 [facility] Avi 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 Active Problem 01/25/2018 Philippe Gibson Problem Active 2018-01-25 02:45:48 [facility] Avi Bilateral lower extremity edema Bilateral lower extremity edema Active Problem 01/25/2018 Philippe Gibson Problem Active 2018-01-25 02:45:48 [facility] Barry Venous insufficiency Veno us insufficiency Active Diagnosis 03/07/2017 Philippe Gibson Diagnosis Active 2017-03-07 02:45 :07 John Cárdenas Essential hypertension Esse ntial hypertension Active Problem 01/25/2018 Philippe Gibson Problem Active 20 16-01-28 02:45:48 [facility] Avi Obesity (BMI 30.0-34.9) Obes ity (BMI 30.0-34.9) Active Problem 01/25/2018 Philippe Gibson Problem Active 16-01-28 02:45:48 [facility] Avi Osteoarthritis, unspecified osteoarthritis type, unspe cified site Osteoarthritis, unspecified osteoarthritis type, unspecified site Active Problem 01/25/2018 Philippe Gibson Problem Active 16-01-28 02:45:48 [facility] Avi Family history of abdominal aortic aneurysm (AAA) Family history of abdominal aortic aneurysm (AAA) Active Problem 01/25/2018 Philippe Gibson Problem Active 2018-01-25 02:45:48 Armando Cárdenas Former smoker Form er smoker Active Problem 01/25/2018 Philippe Gibson Problem Active 2018-01-25 02:45:48 John Cárdenas Dyspnea, unspecified type Dysp kobi, unspecified type Active Problem 01/25/2018 Philippe Gibson Problem Active 16-01-28 02:45:48 [facility] Avi Preoperative cardiovascular examination Preoperative cardiovascular examination Active Problem 01/25/2018 Philippe Gibson Problem Active 2018-01-25 02:45:48 Daniel Cárdenas 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 Active Problem 01/25/2018 Philippe Gibson Problem Active 2018-01-25 02:45:48 [facility] Fat[facility] Fati shane Active Diagnosis 12/19/2017 Keegan Ingram Diagnosis Active 2017-12-19 02:46:26 [facility] Encounter for screening for other viral diseases Encounter for screening for other viral diseases Active Diagnosis 09/02/2019 Keegan Ingram Diagnosis Active 2019-09-02 03:46:32 [facility] (current) use of opiate analgesic MCC (current) use of opiate analgesic Active Diagnosis 09/02/2019 Keegan Ingram Diagnosis Active 2019-09-02 03:46:32 [facility] Encounter for screening for other bacterial diseases Encounter for screening for other bacterial diseases Active Diagnosis 09/02/2019 Keegan Ingram Diagnosis Active 2019-09-02 03:46:32 [facility] Screening for tuberculosis Scr eening for tuberculosis Active Diagnosis 09/02/2019 Keegan Ingram Diagnosis Active 2019-09-02 03:46:32 [facility] Chronic pain 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 Inspector juwan pain Active Problem 04/24/2020 Keegan Ingram Problem Active 2020-04-24 02:45:06 [facility] Immunocompromised state Immu nocompromised state Active Problem 04/24/2020 Keegan Ingram Problem Active 2020-04-24 02 :45:06 [facility] Allergies, Adverse Reactions, Alerts Allergy Name Allergy Type Status Severity Reaction(s) Onset Date Inacti ve Date Treating Clinician Comments Source Remicade Remicade Active Info Not Available 2020-04-14 00:00:00 [facility] Mirapex Mirapex Active nausea/emesis 2020-04-14 00:00:00 [facility] latex DA Active U 2019-01-21 00:00:00 [facility] Latex Allergy to substance Active RASH 2017-06-28 00:00:00 [facility] N.GladisA. Cora Active Info Not Available 2017-02-28 00:00:00 [facility] latex DA Active U 2013-02-17 00:00:00 [facility] Latex Gloves Adverse Reaction Active Info Not Available [facility] Family History Family Member Diagnosis Comments Start Date Stop Date Source 33 FATHER Family history of arterial aneurysm [facility] 32 MOTHER Family history of arterial aneurysm [facility] 09 SISTER Family history of neuropathy [facility] Social History Social Habit Start Date Stop Date Quantity Comments Source Sex Assigned At 1935 00:00:00 1935 00:00:00 Male [facility] Smoking Status Start Date Stop Date Source Never smoker [facility] (LUF/IZAIAH/SA) Medications Ordered Medication Name Filled Medication Name Start Date Stop Da te Current Medication? Ordering Clinician Indication Dosage Frequency Signature (SIG) Comments Components Source Medrol Dose Davis 2020-04-22 00:00:00 Yes Gregory Ingram as directed [facility] Nexium 2020-04-19 02:46:07 Yes Milad Rodriguez TAKE ONE CAPSULE BY MOUTH EVERY DAY [facility] Atenolol 2020-04-19 02:46:07 Yes Milad Rodriguez 1 t ablet [facility] Gabapentin 2020-04-19 02:46:07 Yes Milad Rodriguez 1 tablet [facility] Vitamin D 2020-04-19 02:46:07 Yes Milad Rodriguez 1 tablet [facility] Tylenol/Codeine #3 2020-04-14 00:00:00 Yes Milad Rodriguez 1 tablet as needed [facility] Chlordiazepoxide HCl 2020-04-14 00:00:00 Yes Milad Rodriguez 1 capsule [facility] Tramadol HCl 2019-08-20 00:00:00 Yes Maria E Martines 1 tablet as needed [facility] Medrol Dose Davis 2018-12-01 00:00:00 Yes Wajeeha Clau as directed [facility] Chlordiazepoxide HCl 2018-09-09 00:00:00 Yes Maria E Martines 1 capsule [facility] Chlordiazepoxide HCl 2018-08-12 00:00:00 Yes Wazulaya Clau 1 capsule [facility] PredniSONE 2018-08-05 00:00:00 Yes Evaristo Botellosaf 1-2 tabs prn for arthritis flare up [facility] Zofran 2018-08-05 00:00:00 Yes Milad Rodriguez 1 tab let [facility] Nasacort Nasacort 2018-07-31 00:00:00 Yes Duane Mcdonnell 2 puffs in each nostril [facility] Ofloxacin Ofloxacin 2018-07-31 00:00:00 2018-08-06 00:00:00 No Jayla Mcdonnell 4 drops into affected ear [facility] Gabapentin 2018-06-17 02:46:27 Yes Evaristo Rolonf 1 tablet [facility] Tylenol/Codeine #3 2018-06-10 00:00:00 Yes Maria E Martines 1 tablet as needed [facility] Meclizine HCl 2018-06-10 00:00:00 Yes Milad Rodriguez 1 tablet as needed [facility] Atenolol 2018-01-25 02:45:48 Yes Philippe Jeroudi 1 tablet [facility] Azelastine HCl 2018-01-25 02:45:48 Yes Philippe Jeroudi 1 puff in each nostril [facility] Hydrocodone-Acetaminophen 2018-01-25 02:45:48 Yes Chasidyame d Jeroudi 1 tablet as needed [facility] Omeprazole 2018-01-25 02:45:48 Yes Mohamed Jeroudi 1 capsule [facility] Triamterene-HCTZ 2018-01-25 02:45:48 Yes Mohamed Jeroudi 1 tablet in the morning [facility] Gabapentin 2018-01-25 02:45:48 Yes Mohamed Jeroudi 1 tablet [facility] Asmanex 14 Metered Doses 2018-01-25 02:45:48 Yes Mohamed Jeroudi 1 puff in the evening [facility] Pramipexole Dihydrochloride 2018-01-25 02:45:48 Yes Moha med Jeroudi 1 tablet before bedtime [facility] Stiolto Respimat 2018-01-25 02:45:48 Yes Mohamed Jeroudi 2 puffs [facility] Vitamin D (Ergocalciferol) 2017-12-17 00:00:00 Yes Gretta Ingram 1 capsule [facility] Ciprodex Ciprodex 2017-12-11 00:00:00 Yes Duane Mcdonnell not defined [facility] Simponi Aria 2017-09-02 00:00:00 Yes Milad Rodriguez as directed [facility] PredniSONE 2017-08-20 00:00:00 Yes Gregory Ingram 1-2 tabs PRN [facility] PredniSONE 2017-08-20 00:00:00 Yes Evaristo Clau 1-2 tabs PRN [facility] Atenolol 2017-07-23 02:45:17 Yes Mohamed Jeroudi 1 tablet [facility] Gabapentin 2017-07-23 02:45:17 Yes Mohamed Jeroudi 1 tablet [facility] Pramipexole Dihydrochloride 2017-07-23 02:45:17 Yes Moha med Jeroudi 1 tablet before bedtime [facility] Triamterene-HCTZ 2017-07-23 02:45:17 Yes Mohamed Jeroudi 1 tablet in the morning [facility] Omeprazole 2017-07-23 02:45:17 Yes Mohamed Jeroudi 1 capsule [facility] Azelastine HCl 2017-07-23 02:45:17 Yes Mohamed Jeroudi 1 puff in each nostril [facility] Asmanex 14 Metered Doses 2017-07-23 02:45:17 Yes Mohamed Jeroudi 1 puff in the evening [facility] Hydrocodone-Acetaminophen 2017-07-23 02:45:17 Yes Mohame d Jeroudi 1 tablet as needed [facility] Stiolto Respimat 2017-07-23 02:45:17 Yes Philippe Gibson 2 puffs [facility] Ranitidine HCl Ranitidine HCl 2017-07-16 00:00:00 Yes Duane Calero tton 1 tablet [facility] Tylenol/Codeine #3 2016-12-28 00:00:00 Yes Evaristo Rolon f 1 tablet as needed [facility] Acetaminophen 300 MG / Codeine Phosphate 60 MG Oral Ta blet Acetaminophen 300 MG / Codeine Phosphate 60 MG Oral Tablet Yes 1tab QID [facility] (F/IZAIAH/SA) Atenolol 50 MG Oral Tablet Atenolol 50 MG Oral Tablet Yes 50mg [facility] (F/IZAIAH/SA) gabapentin 600 MG Oral Tablet gabapentin 600 MG Oral Tablet Yes 600mg TID [facility] emoritx (F/IZAIAH/SA) Gabapentin Gabapentin Yes Duane Mcdonnell not defin ed [facility] Triamterene Triamterene Yes Duane Mcdonnell not def ined [facility] Atenolol Atenolol Yes Duane Mcdonnell not defined [facility] Acetamin Acetamin Yes Duane Mcdonnell not defined [facility] Acetaminophen With Codeine (Acetaminophen-Codeine Elix ir) 118 Ml ELIXIR Acetaminophen With Codeine (Acetaminophen-Codeine Elixir) 118 Ml ELIXIR Yes [facility] Atenolol Atenolol Yes 50 Daily [facility] Chlordiazepoxide Hcl Chlordiazepoxide Hcl Yes [facility] Gabapentin Gabapentin Yes 600 Daily [facility] Pantoprazole Sodium (Protonix) 40 Mg TABLET. Pantopr azole Sodium (Protonix) 40 Mg TABLET. Yes 40 Daily [facility] Ropinirole Hcl Ropinirole Hcl Yes 1 Three Time s A Day [facility] Spironolactone Spironolactone Yes [facility] Azithromycin (Z-Davis) 250 Mg TABLET Azithromycin (Z-Davis) 250 Mg T ABLET 2020-06-23 00:00:00 No 250 Use As Directed [facility] Ondansetron Ondansetron 2020-06-23 00:00:00 No [facility] Smz/Tmp Smz/Tmp 2020-06-23 00:00:00 No [facility] Gabapentin Gabapentin 2019-05-15 00:00:00 No 600 Thr ee Times A Day [facility] Ropinirole Hcl Ropinirole Hcl 2019-05-15 00:00:00 No .5 Bedtime [facility] Meclizine Hcl Meclizine Hcl 2019-03-11 00:00:00 No 25 Daily [facility] Pramipexole Di-Hcl (Pramipexole Dihydrochloride) 0.25 Mg TABLET Pramipexole Di- Hcl (Pramipexole Dihydrochloride) 0.25 Mg TABLET 2019-03-11 00:00:00 No .5 Twice A Day [facility] Triamterene/Hctz Triamterene/Hctz 2019-03-11 00:00:00 No Daily [facility] Vital Signs Vital Name Observation Time Observation Value Comments Source Body Temperature 2020-06-25 15:43:00 98.8 [degF] [facility] Weight 2020-06-23 12:43:00 229.04 [lb_av] [facility] BMI (Body Mass Index) 2020-06-23 12:43:00 31.9 kg/m2 [facility] Body Temperature 2020-06-10 09:19:00 97.0 [degF] [facility] BMI (Body Mass Index) 2020-06-09 01:00:00 28.9 kg/m2 [facility] Weight 2020-06-08 17:30:00 213 [lb_av] [facility] Body Temperature 2020-05-20 19:48:00 98.4 [degF] [facility] Weight 2020-05-20 15:27:00 210 [lb_av] [facility] BMI (Body Mass Index) 2020-05-20 15:27:00 30.1 kg/m2 [facility] Weight 2020-04-14 20:00:00 [facility] Height 2020-04-14 20:00:00 [facility] Temperature Oral (F) 2020-04-14 20:00:00 97.9 F [facility] Heart Rate 2020-04-14 20:00:00 [facility] Diastolic (mm Hg) 2020-04-14 20:00:00 [facility] Systolic (mm Hg) 2020-04-14 20:00:00 Armando rial [facility] Weight 2019-08-20 20:30:00 [facility] Height 2019-08-20 20:30:00 [facility] Temperature Oral (F) 2019-08-20 20:30:00 97.7 F [facility] Heart Rate 2019-08-20 20:30:00 [facility] Diastolic (mm Hg) 2019-08-20 20:30:00 [facility] Systolic (mm Hg) 2019-08-20 20:30:00 Armando rial Avi Weight 2019-06-16 18:45:00 [facility] Height 2019-06-16 18:45:00 [facility] Temperature Oral (F) 2019-06-16 18:45:00 98.9 F [facility] Heart Rate 2019-06-16 18:45:00 [facility] Diastolic (mm Hg) 2019-06-16 18:45:00 Mem o[facility]vi Systolic (mm Hg) 2019-06-16 18:45:00 Armando rial [facility] Weight 2019-01-05 16:45:00 [facility] Height 2019-01-05 16:45:00 [facility] Temperature Oral (F) 2019-01-05 16:45:00 96.8 F [facility] Heart Rate 2019-01-05 16:45:00 [facility] Diastolic (mm Hg) 2019-01-05 16:45:00 [facility] Systolic (mm Hg) 2019-01-05 16:45:00 Armando rial Avi Weight 2018-11-07 16:15:00 [facility] Height 2018-11-07 16:15:00 [facility] Temperature Oral (F) 2018-11-07 16:15:00 96.6 F [facility] Heart Rate 2018-11-07 16:15:00 [facility] Diastolic (mm Hg) 2018-11-07 16:15:00 [facility] Systolic (mm Hg) 2018-11-07 16:15:00 Armando rial Avi Weight 2018-11-04 19:15:00 [facility] Height 2018-11-04 19:15:00 [facility] Temperature Oral (F) 2018-11-04 19:15:00 98.0 F [facility] Heart Rate 2018-11-04 19:15:00 [facility] Diastolic (mm Hg) 2018-11-04 19:15:00 [facility] Systolic (mm Hg) 2018-11-04 19:15:00 Armando rial [facility] Weight 2018-09-09 19:00:00 [facility] Height 2018-09-09 19:00:00 [facility] Temperature Oral (F) 2018-09-09 19:00:00 98.8 F [facility] Heart Rate 2018-09-09 19:00:00 [facility] Diastolic (mm Hg) 2018-09-09 19:00:00 [facility] Systolic (mm Hg) 2018-09-09 19:00:00 Armando rial [facility] Weight 2018-08-12 21:00:00 [facility] Height 2018-08-12 21:00:00 [facility] Temperature Oral (F) 2018-08-12 21:00:00 97.2 F [facility] Heart Rate 2018-08-12 21:00:00 [facility] Diastolic (mm Hg) 2018-08-12 21:00:00 [facility] Systolic (mm Hg) 2018-08-12 21:00:00 Armando rial [facility] Weight 2018-08-05 19:00:00 [facility] Height 2018-08-05 19:00:00 [facility] Temperature Oral (F) 2018-08-05 19:00:00 98.5 F [facility] Heart Rate 2018-08-05 19:00:00 [facility] Diastolic (mm Hg) 2018-08-05 19:00:00 [facility] Systolic (mm Hg) 2018-08-05 19:00:00 Armando rial Avi Weight 2018-06-10 18:30:00 [facility] Height 2018-06-10 18:30:00 [facility] Temperature Oral (F) 2018-06-10 18:30:00 97.0 F [facility] Heart Rate 2018-06-10 18:30:00 [facility] Diastolic (mm Hg) 2018-06-10 18:30:00 [facility] Systolic (mm Hg) 2018-06-10 18:30:00 Armando rial [facility] Body Temperature 2018-02-22 12:32:00 98.2 F [facility] (LUF/IZAIAH/SA) Respiratory Rate 2018-02-22 12:32:00 20 /min [facility] (LUF/IZAIAH/SA) O2% BldC Oximetry 2018-02-22 12:32:00 98 % [facility] (LUF/IZAIAH/SA) BP Systolic 2018-02-22 12:32:00 128 mm[Hg] [facility] (LUF/IZAIAH/SA) BP Diastolic 2018-02-22 12:32:00 71 mm[Hg] [facility] (LUF/IZAIAH/SA) Height 2018-02-22 12:32:00 71 in [facility] (LUF/IZAIAH/SA) Weight Measured 2018-02-22 12:32:00 237 lbs [facility] (LUF/IZAIAH/SA) BMI (Body Mass Index) 2018-02-22 12:32:00 33.1 [facility] (LUF/IZAIAH/SA) Weight 2018-02-13 18:15:00 [facility] Height 2018-02-13 18:15:00 [facility] Temperature Oral (F) 2018-02-13 18:15:00 97.3 F [facility] Heart Rate 2018-02-13 18:15:00 [facility] Diastolic (mm Hg) 2018-02-13 18:15:00 Mem [facility] Systolic (mm Hg) 2018-02-13 18:15:00 Armando rial Avi Weight 2017-12-16 20:00:00 [facility] Height 2017-12-16 20:00:00 [facility] Temperature Oral (F) 2017-12-16 20:00:00 98.2 F [facility] Heart Rate 2017-12-16 20:00:00 [facility] Diastolic (mm Hg) 2017-12-16 20:00:00 [facility] Systolic (mm Hg) 2017-12-16 20:00:00 Armando rial [facility] Weight 2017-10-21 21:30:00 [facility] Height 2017-10-21 21:30:00 [facility] Temperature Oral (F) 2017-10-21 21:30:00 99.0 F [facility] Heart Rate 2017-10-21 21:30:00 [facility] Diastolic (mm Hg) 2017-10-21 21:30:00 [facility] Systolic (mm Hg) 2017-10-21 21:30:00 Armando rial [facility] Weight 2017-02-28 18:00:00 [facility] Height 2017-02-28 18:00:00 [facility] Temperature Oral (F) 2017-02-28 18:00:00 97.3 F [facility] Heart Rate 2017-02-28 18:00:00 [facility] Diastolic (mm Hg) 2017-02-28 18:00:00 [facility] Systolic (mm Hg) 2017-02-28 18:00:00 Armando rial Avi Weight 2017-01-31 20:00:00 [facility] Height 2017-01-31 20:00:00 [facility] Temperature Oral (F) 2017-01-31 20:00:00 97.6 F [facility] Heart Rate 2017-01-31 20:00:00 [facility] Diastolic (mm Hg) 2017-01-31 20:00:00 [facility] Systolic (mm Hg) 2017-01-31 20:00:00 Armando rial [facility] Weight 2017-01-16 20:30:00 [facility] Height 2017-01-16 20:30:00 [facility] Temperature Oral (F) 2017-01-16 20:30:00 98.0 F [facility] Heart Rate 2017-01-16 20:30:00 [facility] Diastolic (mm Hg) 2017-01-16 20:30:00 [facility] Systolic (mm Hg) 2017-01-16 20:30:00 Armando rial [facility] Procedures Procedure Date / Time Performed Performing Clinician [facility] e X-ray of chest, two views 2020-06-24 00:00:[address] [facility] CT of abdomen and pelvis without contrast 2020-05-20 00:00:00 [facility] Computed tomography of abdomen and pelvis with contrast 00:00:00 [facility] Computed tomography of brain without radiopaque contrast 2020-03 00:00:00 [facility] Plan of Care Planned Activity Planned Date Details Comments Source Instructions Pneumonia - Bacterial [facility] Instructions Weakness (Generalized) [facility] Encounters Start Date/Time End Date/Time Encounter Type Admission Type Attendi [facility] Care Department Encounter ID Source 2020-06-08 21:24:00 2020-06-10 11:01:00 Discharged Inpatient (obs) [address] [facility] [id number] [facility] 2020-05-20 17:40:00 2020-05-20 20:15:00 Departed Emergency Room PER AU [facility] [id number] [facility] 2020-05-12 16:56:00 2020-05-12 16:56:00 Registered Clinic [address] [facility] [id number] [facility] 2020-05-11 17:07:00 2020-05-11 17:07:00 Registered Clinic [address] [facility] [id number] [facility] 2020-04-22 09:51:00 2020-04-22 09:51:00 Outpatient Gregory CALERO [id number] Keegan Ingram MD 2020-04-14 15:00:00 2020-04-14 15:00:00 Outpatient Gregory Ingram MD [place] [id number] Keegan Ingram MD 2020-04-01 12:13:00 2020-04-02 21:44:00 Discharged Inpatient [address] [facility] [id number] [facility] 2020-03-16 13:53:00 2020-03-16 15:50:00 Departed Emergency Room [facility] [id number] [facility] 2020-03-14 13:57:00 2020-03-14 13:57:00 Outpatient Gregory Ingram MD [place] [id number] Keegan Ingram MD 2020-03-13 16:51:00 2020-03-14 00:05:00 Departed Emergency Room 1 PER AU [facility] [id number] [facility] 2019-11-09 15:05:00 2019-11-09 15:05:00 Outpatient MD GALILEA Cazares MD [place] [id number] Keegan Ingram MD 2019-10-28 16:53:00 2019-10-28 16:53:00 Outpatient MD GALILEA Cazares MD [place] [id number] Keegan Ingram MD 2019-08-20 14:53:00 2019-08-20 14:53:00 Outpatient MD GALILEA Cazares MD [place] [id number] Keegan Ingram MD 2019-08-20 14:30:00 2019-08-20 14:30:00 Outpatient Gregory Ingram MD PA [id number] Keegan Ingram MD 2019-06-16 13:45:00 2019-06-16 13:45:00 Outpatient Gregory Ingram MD PA [id number] MIRACLE Ingram MD 2019-06-03 12:40:00 2019-06-03 12:40:00 Outpatient MD GALILEA Villa MD [place] [id number] MIRACLE Ingram MD 2019-05-20 11:17:00 2019-05-20 11:17:00 Outpatient Gregory Ingram MD PA [id number] Keegan Ingram MD 2019-05-14 02:17:00 2019-05-15 18:35:00 Discharged Inpatient (obs) 1 [facility] [id number] [facility] 2019-03-30 14:59:00 2019-03-30 14:59:00 Outpatient Gregory CALERO [id number] Keegan Ingram MD 2019-03-17 07:14:00 2019-03-17 07:14:00 Registered Surgical Day Car e ELMIRA PARRA [facility] [id number] [facility] 2019-03-04 16:27:00 2019-03-04 16:27:00 Outpatient Gregory Ingram MD PA [id number] Keegan Ingram MD 2019-01-08 10:55:00 2019-01-08 10:55:00 [facility] [id number] [facility] 2019-01-05 11:45:00 2019-01-05 11:45:00 Outpatient Gregory Ingram MD [place] [id number] Keegan Ingram MD 2018-12-01 16:00:00 2018-12-01 16:00:00 Outpatient Gregory Ingram MD [place] [id number] Keegan Ingram MD 2018-11-28 13:18:00 2018-11-28 13:18:00 Outpatient Gregory Ingram MD [place] [id number] Keegan Ingram MD 2018-11-07 10:15:00 2018-11-07 10:15:00 Outpatient Gregory Ingram MD PA [id number] Keegan Ingram MD 2018-11-04 13:15:00 2018-11-04 13:15:00 Outpatient Gregory Ingram MD PA [id number] Keegan Ingram MD 2018-09-09 13:00:00 2018-09-09 13:00:00 Outpatient Gregory Ingram MD [place] [id number] Keegan Ingram MD 2018-08-26 14:53:00 2018-08-26 14:53:00 Outpatient Gregory CALERO [id number] Keegan Ingram MD 2018-08-12 15:00:00 2018-08-12 15:00:00 Outpatient Gregory CALERO [id number] Keegan Ingram MD 2018-08-05 13:00:00 2018-08-05 13:00:00 Outpatient Gregory CALERO [id number] Keegan Ingram MD 2018-07-31 10:00:00 2018-07-31 10:00:00 [facility] P [id number] [facility] 2018-07-30 15:49:00 2018-07-30 15:49:00 Outpatient [facility] [id number] [facility] 2018-06-23 18:55:00 2018-06-23 18:55:00 [facility] [id number] [facility] 2018-06-10 14:46:00 2018-06-10 14:46:00 Outpatient Gregory CALERO [id number] Keegan Ingram MD 2018-06-10 13:30:00 2018-06-10 13:30:00 Outpatient Gregory CALERO [id number] Keegan Ingram MD 2018-02-22 12:13:00 2018-02-22 14:30:00 FX 1 RIB LT SIDE INITIAL CL OS FX 1 JOE [facility], [address] [place] [address] , [place] [address] [facility] [id number] [facility] (LUF /IZAIAH/SA) 2018-02-13 13:15:00 2018-02-13 13:15:00 Outpatient Gregory Ingram MD PA [id number] Keegan Ingram MD 2018-02-11 15:39:00 2018-02-11 15:39:00 Outpatient Gregory Ingram MD PA [id number] Keegan Ingram MD 2017-12-17 12:56:00 2017-12-17 12:56:00 Outpatient Gregory CALERO [id number] Keegan Ingram MD 2017-12-16 15:00:00 2017-12-16 15:00:00 Outpatient Gregory Ingram MD PA [id number] Keegan Ingram MD 2017-12-11 13:20:00 2017-12-11 13:20:00 [facility]patient [facility] [id number] [facility] 2017-12-04 13:00:00 2017-12-04 13:00:00 Outpatient [facility] [id number] [facility] 2017-10-22 08:34:00 2017-10-22 08:34:00 Outpatient Gregory Ingram MD PA [id number] Keegan Ingram MD 2017-10-21 15:30:00 2017-10-21 15:30:00 Outpatient Gregory Ingram MD PA [id number] Keegan Ingram MD 2017-02-28 13:00:00 2017-02-28 13:00:00 Outpatient Philippe Gibson MD [place] [id number] [employer] 2017-02-12 11:00:00 2017-02-12 11:00:00 Outpatient Philippe Gibson MD PA [id number] [employer] 2017-01-31 15:00:00 2017-01-31 15:00:00 Outpatient Philippe Gibson MD PA [id number] [employer] 2017-01-16 15:30:00 2017-01-16 15:30:00 Outpatient Philippe Gibson MD [place] [id number] [employer] Results Test Description Test Time Test Comments Results Result Comments Source Blood leukocytes automated count (number/volume) 2020-06-25 05:30:00 Test Item White Blood Count (test code = 6690-2) 6.73 4.8-10.8 [facility] erythrocytes automated count (number/volume)2020-06-25 05:30:00* Test Item Value Reference Range Interpretation Comments Red Blood Count (test code = 789-8) 4.04 4.3-5.7 [facility] hemoglobin measurement (moles/volume)2020-06-25 05:30:00* Test Item Value Reference Range Interpretation Comments Hemoglobin (test code = 23041-7) 12.0 14.0-18.0 [facility] Central[facility] blood hematocrit (volume fraction)2020-06-25 05:30:00* Test Item Value Reference Range Interpretation Comments Hematocrit (test code = 4544-3) 37.1 38.2-49.6 [facility] erythrocyte mean corpuscular ylhfbn8731-91-65 05:30:00* Test Item Value Reference Range Interpretation Comments Mean Corpuscular Volume (test code = 787-2) 91.8 81-99 [facility] erythrocyte mean corpuscular hemoglobin (mass per erythrocyte)2020-06-25 05:30:00* Test Item Value Reference Range Interpretation Comments Mean Corpuscular Hemoglobin (test code = 785-6) 29.7 28-32 [facility] erythrocyte mean corpuscular hemoglobin concentration measurement (mass/volume)2020-06-25 05:30:00* Test Item Value Reference Range Interpretation Comments Mean Corpuscular Hemoglobin Concent (test code = 786-4) 32.3 31-35 [facility] CentralRDW MprNf-Bnx3444-63-26 05:30:00* Test Item Value Reference Range Interpretation Comments Red Cell Distribution Width (test code = 19824-5) 13.7 11.7 -14.4 [facility] blood platelet count (count/volume)2020-06-25 05:30:00* Test Item Value Reference Range Interpretation Comments Platelet Count (test code = 777-3) 151 140-360 [facility] Central[facility] blood segmented neutrophil count as percentage of total sojakvduws8925-79-21 05:30:00* Test Item Value Reference Range Interpretation Comments Neutrophils (%) (Auto) (test code = 32265-6) 56.7 38.7-80.0 [facility] Central[facility] blood lymphocyte count as percentage ot total xazqivrsus5463-31-32 05:30:00* Test Item Value Reference Range Interpretation Comments Lymphocytes (%) (Auto) (test code = 736-9) 29.1 18.0-39.1 [facility] blood monocyte count as percentage of total cycifsceof2693-96-92 05:30:00* Test Item Value Reference Range Interpretation Comments Monocytes (%) (Auto) (test code = 5905-5) 11.4 4.4-11.3 [facility] blood eosinophil count as percentage of total kzhgyfhxkr1289-83-46 05:30:00* Test Item Value Reference Range Interpretation Comments Eosinophils (%) (Auto) (test code = 713-8) 1.9 0.0-6.0 [facility] blood basophil count as percentage of total qvthmeqwjn3833-42-45 05:30:00* Test Item Value Reference Range Interpretation Comments Basophils (%) (Auto) (test code = 706-2) 0.6 0.0-1.0 [facility] CentralFluoroscopic procedure less than one hour erxfezvx6897-38-74 05:30:00* Test Item Value Reference Range Interpretation Comments IM GRANULOCYTES % (test code = IM GRANULOCYTES %) 0.3 0.0- 1.0 [facility] blood neutrophil count 2020-06-25 05:30:00* Test Item Value Reference Range Interpretation Comments Neutrophils # (Auto) (test code = 751-8) 3.8 2.1-6.9 [facility] lymphocytes count (number/volume) 2020-06-25 05:30:00* Test Item Value Reference Range Interpretation Comments Lymphocytes # (Auto) (test code = 03455-8) 2.0 1.0-3.2 [facility] monocytes automated count (number/volume)2020-06-25 05:30:00* Test Item Value Reference Range Interpretation Comments Monocytes # (Auto) (test code = 742-7) 0.8 0.2-0.8 [facility] Central[facility] blood eosinophil count 2020-06-25 05:30:00* Test Item Value Reference Range Interpretation Comments Eosinophils # (Auto) (test code = 711-2) 0.1 0.0-0.4 [facility] blood basophil count (count/volume)2020-06-25 05:30:00* Test Item Value Reference Range Interpretation Comments Basophils # (Auto) (test code = 704-7) 0.0 0.0-0.1 [facility] CentralFluoroscopic procedure less than one hour cbagfjxy2915-39-96 05:30:00* Test Item Value Reference Range Interpretation Comments Absolute Immature Granulocyte (auto (faye t code = Absolute Immature Granulocyte (auto) 0.02 0-0.1 [facility] plasma sodium measurement (moles/volume)2020-06-25 05:30:00* Test Item Value Reference Range Interpretation Comments Sodium Level (test code = 2951-2) 142 136-145 [facility] or plasma potassium measurement (moles/volume)2020-06-25 05:30:00* Test Item Value Reference Range Interpretation Comments Potassium Level (test code = 2823-3) 3.5 3.5-5.1 [facility] or plasma chloride measurement (moles/volume)2020-06-25 05:30:00* Test Item Value Reference Range Interpretation Comments Chloride Level (test code = 2075-0) 111 98-107 [facility] or plasma carbon dioxide, total measurement (moles/volume)2020-06-25 05:30:00* Test Item Value Reference Range Interpretation Comments Carbon Dioxide Level (test code = 2028-9) 24 22-29 [facility] or plasma anion xcb6770-54-10 05:30:00* Test Item Value Reference Range Interpretation Comments Anion Gap (test code = 96238-6) 10.5 8-16 [facility] or plasma urea nitrogen measurement (mass/volume)2020-06-25 05:30:00* Test Item Value Reference Range Interpretation Comments Blood Urea Nitrogen (test code = 3094-0) 8 7- [facility] or plasma creatinine measurement (mass/volume)2020-06-25 05:30:00* Test Item Value Reference Range Interpretation Comments Creatinine (test code = 2160-0) 0.86 0.72-1.25 [facility] or plasma urea nitrogen/creatinine mass jvntx6054-19-11 05:30:00* Test Item Value Reference Range Interpretation Comments BUN/Creatinine Ratio (test code = 3097-3) 9 03-24 [facility] CentralEstimated glomerular filtration rate (GFR) kfspguvxmkwow9236-04-65 05:30:00* Test Item Value Reference Range Interpretation Comments Estimat Glomerular Filtration Rate (test code = 775920385) > 60 >60 Ranges were taken from the National Kidney Disease Education Program and the [facility] literature.Reference ranges:60 or greater: Qbcnxa24-26 ( for 3 consecutive months): Chronic kidney disease 15 or less: Kidney failure[facility] – CentralGlucose ldrblnohlha0441-85-69 05:30:00* Test Item Value Reference Range Interpretation Comments Glucose Level (test code = FUN2070) 89 74-118 [facility] or plasma calcium measurement (mass/volume)2020-06-25 05:30:00* Test Item Value Reference Range Interpretation Comments Calcium Level (test code = 18319-0) 8.1 8.4-10.2 [facility] or plasma trough vancomycin level at trough (mass/volume)2020-06-24 15:43:00* Test Item Value Reference Range Interpretation Comments Vancomycin Level Trough (test code = 4092-3) 11.0 5.0-10.0 Results repeated and called to OXANA MCKEON RN at 1626 on 06/24/20 by Morgan Arzola. Read back and verified.[facility] CentralCHEST 2 JLIWT7683-31-91 11:37:00 [facility] [address] [address] Patient Name: NOEMY ARGUETA MR #: [id number] : 1935 Age/Sex: 85/M Req #: [id number] Adm Physician: KLAUDIA ARZOLA MD Ordered by: KLAUDIA ARZOLA MD Report #: [id number] Location: MED/SURG2 Room/Bed: [facility] Procedure: [id number] DX/CHEST 2 VIE WS Exam Date: 06/24/20 [...] Kinase (test code = 2157-6) 69 30-200 [facility] or plasma creatine kinase MB measurement (mass/volume)2020-06-23 10:30:00* Test Item Value Reference Range Interpretation Comments Creatine Kinase MB (test code = 90729-1) 2.50 0-5.0 [facility] CentralTroponin I measurement by highly sensitive enzyme ntzazhkexsx9890-22-28 10:30:00* Test Item Value Reference Range Interpretation Comments Troponin I (test code = 08704-6) 0.015 0-0.300 [facility] or plasma total bilirubin measurement (mass/volume)2020-06-23 06:20:00* Test Item Value Reference Range Interpretation Comments Total Bilirubin (test code = 1975-2) 0.6 0.2-1.2 [facility] CentralFluoroscopic procedure less than one hour vrhvvxlg3469-58-96 06:20:00* Test Item Value Reference Range Interpretation Comments Aspartate Amino Transf (AST/SGOT) (test code = Aspartate Amino Transf (AST/SGOT)) 15 5-34 [facility] or plasma alanine aminotransferase measurement (enzymatic activity/volume)2020-06-23 06:20:00* Test Item Value Reference Range Interpretation Comments Alanine Aminotransferase (ALT/SGPT) (test code = 1742-6) 12 0-55 [facility] or plasma protein measurement (mass/volume)2020-06-23 06:20:00* Test Item Value Reference Range Interpretation Comments Total Protein (test code = 2885-2) 5.7 6.5-8.1 [facility] or plasma albumin measurement (mass/volume)2020-06-23 06:20:00* Test Item Value Reference Range Interpretation Comments Albumin (test code = 1751-7) 3.3 3.5-5.0 [facility] CentralPlasma globulin measurement (mass/volume) 2020-06-23 06:20:00* Test Item Value Reference Range Interpretation Comments Globulin (test code = 04957-3) 2.4 2.3-3.5 [facility] or plasma albumin/globulin mass wploi9008-20-58 06:20:00* Test Item Value Reference Range Interpretation Comments Albumin/Globulin Ratio (test code = 1759-0) 1.4 0.8-2.0 [facility] or plasma alkaline phosphatase measurement (enzymatic activity/volume)2020-06-23 06:20:00* Test Item Value Reference Range Interpretation Comments Alkaline Phosphatase (test code = 6768-6) 55 40-150 [facility] CentralUrine color rrbskzeziqizd0313-17-54 19:09:00* Test Item Value Reference Range Interpretation Comments Urine Color (test code = 5778-6) YELLOW YELLOW [facility] CentralUrine jlttkwu0106-12-55 19:09:00* Test Item Value Reference Range Interpretation Comments Urine Clarity (test code = 52329-7) CLEAR CLEAR [facility] Resourcespecific gravity of Urine by Test strip 2020-06-22 19:09:00* Test Item Value Reference Range Interpretation Comments Urine Specific [place] (test code = 5811-5) 1.010 1.010-1.02 5 [facility] Central[facility] pH measurement by automated test wdxzs5436-14-50 19:09:00* Test Item Value Reference Range Interpretation Comments Urine pH (test code = 14809-7) 5.5 5-7 [facility] CentralUrine leukocyte esterase detection by vynfmbkv1435-29-24 19:09:00* Test Item Value Reference Range Interpretation Comments Urine Leukocyte Esterase (test code = 5799-2) NEGATIVE NEGATIVE [facility] CentralUrine nitrite djlqztdrb1471-23-57 19:09:00* Test Item Value Reference Range Interpretation Comments Urine Nitrite (test code = 64879-2) NEGATIVE NEGATIVE [facility] Central[facility] protein measurement by test strip (mass/volume)2020-06-22 19:09:00* Test Item Value Reference Range Interpretation Comments Urine Protein (test code = 5804-0) NEGATIVE NEGATIVE [facility] CentralUrine glucose cpyepelwy5045-00-67 19:09:00* Test Item Value Reference Range Interpretation Comments Urine Glucose (UA) (test code = 2349-9) NEGATIVE NEGATIVE [facility] CentralUrine ketones detection by automated test aqbtu0600-21-12 19:09:00* Test Item Value Reference Range Interpretation Comments Urine Ketones (test code = 59134-8) NEGATIVE NEGATIVE [facility] CentralUrine urobilinogen measurement by test strip (mass/volume)2020-06-22 19:09:00* Test Item Value Reference Range Interpretation Comments Urine Urobilinogen (test code = 80863-0) 0.2 0.2-1 [facility] CentralU[facility] total bilirubin measurement (mass/volume)2020-06-22 19:09:00* Test Item Value Reference Range Interpretation Comments Urine Bilirubin (test code = 1978-6) NEGATIVE NEGATIVE [facility] CentralU[facility] erythrocytes rxtnfbvfr9127-03-60 19:09:00* Test Item Value Reference Range Interpretation Comments Urine Blood (test code = 66847-0) NEGATIVE NEGATIVE [facility] CentralAutomated urine sediment leukocyte count by microscopy (number/high power field)2020-06-22 19:09:00* Test Item Value Reference Range Interpretation Comments Urine WBC (test code = 5821-4) NONE 0-5 [facility] CentralErythrocytes detection in urine sediment by light iddywvbimt8946-94-33 19:09:00* Test Item Value Reference Range Interpretation Comments Urine RBC (test code = 26280-9) NONE 0-5 [facility] CentralBacteria detection in urine sediment by light zerfumveiv3430-39-44 19:09:00* Test Item Value Reference Range Interpretation Comments Urine Bacteria (test code = 53597-1) NONE NONE [facility] CentralEpithelial cells detection in urine sediment by light smpzedldbc7875-04-53 19:09:00* Test Item Value Reference Range Interpretation Comments Urine Epithelial Cells (test code = 67574-6) RARE NONE [facility] CentralCHEST SINGLE (PORTABLE)2020-06-22 17:05:00 [address] [address] Patient Name: NOEMY ARGUETA MR #: [id number] : 1935 Age/Sex: 85/M Req #: [id number] Adm Physician: Ordered by: PER AU MD Report #: [id number] Location: ER Room/Bed: Procedure: [id number] DX/CHEST SINGLE (PORTABLE) Exam Date: 06/22/20 Exam [...] AU MD Erythrocyte sedimentation rate by Westergren jypicp6146-67-36 15:55:00* Test Item Value Reference Range Interpretation Comments Erythrocyte Sedimentation Rate (test code = 4537-7) 18 0- 13 [facility] CentralFluoroscopic procedure less than one hour tcfouoyc8267-25-05 15:55:00* Test Item Value Reference Range Interpretation [...] under 564(g) of the ACT.Testing performed by [facility] [place] [id number] [place], [place] [address]Prothrombin time (PT) in platelet poor plasma by coagulation kdslj6366-68-04 15:19:00* Test Item Value Reference Range Interpretation Comments Prothrombin Time (test code = 5902-2) 13.8 11.9-14.5 [facility] CentralINR in Platelet poor plasma by Coagulation yvmbf2280-14-50 15:19:00* Test Item Value Reference Range Interpretation Comments Prothromb Time International Ratio (test code = 6301-6) 1.01 Oral Anticoagulant Therapy INR Values:1. Low Intensity Therapy 1.5 - 2.02 . Moderate Intensity Therapy 2.0 - 3.03. High Intensity Therapy(1) 2.5 - 3. 54. High Intensity Therapy(2) 3.0 - 4.05. Panic Value INR > 5.0 [facility] CentralActivated partial thromboplastin time (aPTT) in platelet poor plasma by coagulation knrny5752-23-31 15:19:00* Test Item Value Reference Range Interpretation Comments Activated Partial Thromboplast Time (test code = 40433-9) 28.3 23.8-35.5 [facility] CentralFluoroscopic procedure less than one hour shgqwmbj3459-57-00 15:19:00* Test Item Value Reference Range Interpretation Comments Lactic Acid Level (test code = Lactic Acid Level) 1.4 0.5- 2.0 [facility] CentralBNP Yin-bNbi1423-24-23 15:19:00* Test Item Value Reference Range Interpretation Comments B-Type Natriuretic Peptide (test code = 27122-5) 42.4 0-100 [facility] CentralBlood fceqljx2407-38-67 15:11:00* Test Item Value Reference Range Interpretation Comments Blood Culture (test code = 95156423) NO GROWTH AFTER 72 HOURS [facility] CentralBacterial blood rgwjjtf1157-43-69 15:11:00* Test Item Value Reference Range Interpretation Comments Blood Culture (test code = 600-7) STAPHYLOCOCCUS SP COAG NEG [facility] leukocytes automated count (number/volume)2020-06-10 05:35:00* Test Item Value Reference Range Interpretation Comments White Blood Count (test code = 6690-2) 5.95 4.8-10.8 [facility] erythrocytes automated count (number/volume)2020-06-10 05:35:00* Test Item Value Reference Range Interpretation Comments Red Blood Count (test code = 789-8) 3.85 4.3-5.7 [facility] hemoglobin measurement (moles/volume)2020-06-10 05:35:00* Test Item Value Reference Range Interpretation Comments Hemoglobin (test code = 36383-6) 11.5 14.0-18.0 [facility] CentralAutomated blood hematocrit (volume fraction)2020-06-10 05:35:00* Test Item Value Reference Range Interpretation Comments Hematocrit (test code = 4544-3) 34.7 38.2-49.6 [facility] CentralAutomated erythrocyte mean corpuscular nulnry6166-86-74 05:35:00* Test Item Value Reference Range Interpretation Comments Mean Corpuscular Volume (test code = 787-2) 90.1 81-99 [facility] CentralAutomated erythrocyte mean corpuscular hemoglobin (mass per erythrocyte)2020-06-10 05:35:00* Test Item Value Reference Range Interpretation Comments Mean Corpuscular Hemoglobin (test code = 785-6) 29.9 28-32 [facility] CentralAutomated erythrocyte mean corpuscular hemoglobin concentration measurement (mass/volume)2020-06-10 05:35:00* Test Item Value Reference Range Interpretation Comments Mean Corpuscular Hemoglobin Concent (test code = 786-4) 33.1 31-35 [facility] CentralRDW PwjZo-Gdh0293-39-11 05:35:00* Test Item Value Reference Range Interpretation Comments Red Cell Distribution Width (test code = 79367-1) 13.6 11.7 -14.4 [facility] CentralAutomated blood platelet count (count/volume)2020-06-10 05:35:00* Test Item Value Reference Range Interpretation Comments Platelet Count (test code = 777-3) 144 140-360 [facility] CentralAutomated blood segmented neutrophil count as percentage of total eiukykigex3644-87-57 05:35:00* Test Item Value Reference Range Interpretation Comments Neutrophils (%) (Auto) (test code = 41917-5) 53.6 38.7-80.0 [facility] CentralAutomated blood lymphocyte count as percentage ot total ufyjzjrhcx3103-61-50 05:35:00* Test Item Value Reference Range Interpretation Comments Lymphocytes (%) (Auto) (test code = 736-9) 32.3 18.0-39.1 [facility] CentralAutomated blood monocyte count as percentage of total inuhhxhqcj0110-71-95 05:35:00* Test Item Value Reference Range Interpretation Comments Monocytes (%) (Auto) (test code = 5905-5) 11.3 4.4-11.3 [facility] CentralAutomated blood eosinophil count as percentage of total vhafuiqfge0860-64-44 05:35:00* Test Item Value Reference Range Interpretation Comments Eosinophils (%) (Auto) (test code = 713-8) 1.7 0.0-6.0 [facility] CentralAutomated blood basophil count as percentage of total qeroehuwbi2894-59-72 05:35:00* Test Item Value Reference Range Interpretation Comments Basophils (%) (Auto) (test code = 706-2) 0.8 0.0-1.0 [facility] CentralFluoroscopic procedure less than one hour uirrkozi7273-50-58 05:35:00* Test Item Value Reference Range Interpretation Comments IM GRANULOCYTES % (test code = IM GRANULOCYTES %) 0.3 0.0- 1.0 [facility] CentralAutomated blood neutrophil count 2020-06-10 05:35:00* Test Item Value Reference Range Interpretation Comments Neutrophils # (Auto) (test code = 751-8) 3.2 2.1-6.9 [facility] CentralBlood lymphocytes count (number/volume) 2020-06-10 05:35:00* Test Item Value Reference Range Interpretation Comments Lymphocytes # (Auto) (test code = 84005-8) 1.9 1.0-3.2 [facility] CentralBlood monocytes automated count (number/volume)2020-06-10 05:35:00* Test Item Value Reference Range Interpretation Comments Monocytes # (Auto) (test code = 742-7) 0.7 0.2-0.8 [facility] CentralAutomated blood eosinophil count 2020-06-10 05:35:00* Test Item Value Reference Range Interpretation Comments Eosinophils # (Auto) (test code = 711-2) 0.1 0.0-0.4 [facility] CentralAutomated blood basophil count (count/volume)2020-06-10 05:35:00* Test Item Value Reference Range Interpretation Comments Basophils # (Auto) (test code = 704-7) 0.1 0.0-0.1 [facility] CentralFluoroscopic procedure less than one hour fwkcadvt6385-02-99 05:35:00* Test Item Value Reference Range Interpretation Comments Absolute Immature Granulocyte (auto (faye t code = Absolute Immature Granulocyte (auto) 0.02 0-0.1 [facility] [facility] plasma sodium measurement (moles/volume)2020-06-10 05:35:00* Test Item Value Reference Range Interpretation Comments Sodium Level (test code = 2951-2) 143 136-145 [facility] or plasma potassium measurement (moles/volume)2020-06-10 05:35:00* Test Item Value Reference Range Interpretation Comments Potassium Level (test code = 2823-3) 3.4 3.5-5.1 [facility] or plasma chloride measurement (moles/volume)2020-06-10 05:35:00* Test Item Value Reference Range Interpretation Comments Chloride Level (test code = 2075-0) 110 98-107 [facility] or plasma carbon dioxide, total measurement (moles/volume)2020-06-10 05:35:00* Test Item Value Reference Range Interpretation Comments Carbon Dioxide Level (test code = 2028-9) 21 22-29 [facility] or plasma anion yia2088-22-08 05:35:00* Test Item Value Reference Range Interpretation Comments Anion Gap (test code = 03430-7) 15.4 8-16 [facility] or plasma urea nitrogen measurement (mass/volume)2020-06-10 05:35:00* Test Item Value Reference Range Interpretation Comments Blood Urea Nitrogen (test code = 3094-0) 7 7-26 [facility] or plasma creatinine measurement (mass/volume)2020-06-10 05:35:00* Test Item Value Reference Range Interpretation Comments Creatinine (test code = 2160-0) 1.01 0.72-1.25 [facility] or plasma urea nitrogen/creatinine mass lddps7667-33-87 05:35:00* Test Item Value Reference Range Interpretation Comments BUN/Creatinine Ratio (test code = 3097-3) 7 6-25 [facility] CentralEstimated glomerular filtration rate (GFR) egtqpsfxlmqof6606-67-00 05:35:00* Test Item Value Reference Range Interpretation Comments Estimat Glomerular Filtration Rate (test code = 745819235) > 60 >60 Ranges were taken from the National Kidney Disease Education Program and the [facility] literature.Reference ranges:60 or greater: Jipwjp02-26 ( for 3 consecutive months): Chronic kidney disease 15 or less: Kidney failureMid[facility] – CentralGlucose hwyieufimod3410-58-16 05:35:00* Test Item Value Reference Range Interpretation Comments Glucose Level (test code = YKI7289) 85 74-118 [facility] or plasma calcium measurement (mass/volume)2020-06-10 05:35:00* Test Item Value Reference Range Interpretation Comments Calcium Level (test code = 58229-9) 8.0 8.4-10.2 [facility] CentralUrine color hamdtxgcqosuc6275-10-50 06:45:00* Test Item Value Reference Range Interpretation Comments Urine Color (test code = 5778-6) YELLOW YELLOW [facility] CentralUrine rixtzrs6628-86-89 06:45:00* Test Item Value Reference Range Interpretation Comments Urine Clarity (test code = 82331-4) CLEAR CLEAR [facility]pecific gravity of Urine by Test strip 2020-06-09 06:45:00* Test Item Value Reference Range Interpretation Comments Urine Specific Imperial (test code = 5811-5) 1.015 1.010-1.02 5 [facility] CentralUrine pH measurement by automated test qupqg5508-76-07 06:45:00* Test Item Value Reference Range Interpretation Comments Urine pH (test code = 39524-5) 7 5-7 [facility] CentralUrine leukocyte esterase detection by sumpfynd9902-58-41 06:45:00* Test Item Value Reference Range Interpretation Comments Urine Leukocyte Esterase (test code = 5799-2) NEGATIVE NEGATIVE [facility] CentralUrine nitrite clnifgjjq7931-37-93 06:45:00* Test Item Value Reference Range Interpretation Comments Urine Nitrite (test code = 13798-7) NEGATIVE NEGATIVE [facility] CentralUrine protein measurement by test strip (mass/volume)2020-06-09 06:45:00* Test Item Value Reference Range Interpretation Comments Urine Protein (test code = 5804-0) NEGATIVE NEGATIVE [facility] CentralUrine glucose sbfyjrevj2218-88-64 06:45:00* Test Item Value Reference Range Interpretation Comments Urine Glucose (UA) (test code = 2349-9) NEGATIVE NEGATIVE [facility] CentralUrine ketones detection by automated test rypmj5926-15-46 06:45:00* Test Item Value Reference Range Interpretation Comments Urine Ketones (test code = 32102-9) NEGATIVE NEGATIVE [facility] CentralUrine urobilinogen measurement by test strip (mass/volume)2020-06-09 06:45:00* Test Item Value Reference Range Interpretation Comments Urine Urobilinogen (test code = 11765-3) 0.2 0.2-1 [facility] CentralUrine total bilirubin measurement (mass/volume)2020-06-09 06:45:00* Test Item Value Reference Range Interpretation Comments Urine Bilirubin (test code = 1978-6) NEGATIVE NEGATIVE [facility] CentralUrine erythrocytes jkkezaphs8475-20-23 06:45:00* Test Item Value Reference Range Interpretation Comments Urine Blood (test code = 45269-0) TRACE NEGATIVE [facility] CentralAutomated urine sediment leukocyte count by microscopy (number/high power field)2020-06-09 06:45:00* Test Item Value Reference Range Interpretation Comments Urine WBC (test code = 5821-4) 0-5 0-5 [facility] CentralErythrocytes detection in urine sediment by light yixdegrcdm3548-30-11 06:45:00* Test Item Value Reference Range Interpretation Comments Urine RBC (test code = 34888-9) NONE 0-5 [facility] CentralBacteria detection in urine sediment by light bltoegquqw1184-42-41 06:45:00* Test Item Value Reference Range Interpretation Comments Urine Bacteria (test code = 41925-9) RARE NONE [facility] CentralEpithelial cells detection in urine sediment by light howztlisxg5834-08-01 06:45:00* Test Item Value Reference Range Interpretation Comments Urine Epithelial Cells (test code = 15428-1) RARE NONE [facility] [place] [facility] or plasma total bilirubin measurement (mass/volume)2020-06-09 00:10:00* Test Item Value Reference Range Interpretation Comments Total Bilirubin (test code = 1975-2) 0.4 0.2-1.2 [facility] CentralFluoroscopic procedure less than one hour blnenyhl9361-89-31 00:10:00* Test Item Value Reference Range Interpretation Comments Aspartate Amino Transf (AST/SGOT) (test code = Aspartate Amino Transf (AST/SGOT)) 12 5-34 [facility] or plasma alanine aminotransferase measurement (enzymatic activity/volume)2020-06-09 00:10:00* Test Item Value Reference Range Interpretation Comments Alanine Aminotransferase (ALT/SGPT) (test code = 1742-6) 11 0-55 [facility] [place] [facility] or plasma protein measurement (mass/volume)2020-06-09 00:10:00* Test Item Value Reference Range Interpretation Comments Total Protein (test code = 2885-2) 5.7 6.5-8.1 [facility] [place] [facility] or plasma albumin measurement (mass/volume)2020-06-09 00:10:00* Test Item Value Reference Range Interpretation Comments Albumin (test code = 1751-7) 3.5 3.5-5.0 [facility] CentralPlasma globulin measurement (mass/volume) 2020-06-09 00:10:00* Test Item Value Reference Range Interpretation Comments Globulin (test code = 59601-0) 2.2 2.3-3.5 [facility] [place] [facility] or plasma albumin/globulin mass hgalq9751-99-38 00:10:00* Test Item Value Reference Range Interpretation Comments Albumin/Globulin Ratio (test code = 1759-0) 1.6 0.8-2.0 [facility] [place] [facility] or plasma alkaline phosphatase measurement (enzymatic activity/volume)2020-06-09 00:10:00* Test Item Value Reference Range Interpretation Comments Alkaline Phosphatase (test code = 6768-6) 51 40-150 [facility] [place] [facility] or plasma amylase measurement (enzymatic activity/volume)2020-06-09 00:10:00* Test Item Value Reference Range Interpretation Comments Amylase Level (test code = 1798-8) 33 25-125 [facility] [place] [facility] or plasma lipase measurement (enzymatic activity/volume)2020-06-09 00:10:00* Test Item Value Reference Range Interpretation Comments Lipase (test code = 3040-3) 15 8-78 [facility] CentralFree thyroxine qyces7037-12-49 00:10:00* Test Item Value Reference Range Interpretation Comments Free Thyroxine Index (test code = 49059-7) 2.7307 1.4-3.8 [facility] [place] [facility] or plasma thyroxine (T4) measurement (mass/volume)2020-06-09 00:10:00* Test Item Value Reference Range Interpretation Comments Thyroxine (T4) (test code = 3026-2) 7.82 4.5-10.9 [facility] [place] [facility] or plasma triiodothyronine resin uptake (T3RU)2020-06-09 00:10:00* Test Item Value Reference Range Interpretation Comments Triiodothyronine (T3) Uptake (test code = 3050-2) 34.92 22.5 -37.0 [facility] [place] [facility] or plasma thyrotropin measurement by detection limit <= 0.005 miu/l (units/volume)2020-06-09 00:10:00* Test Item Value Reference Range Interpretation Comments Thyroid Stimulating Hormone (TSH) (test code = 07613-9) 1.865 0.350-4.940 [facility] [place] [facility] or plasma amylase measurement (enzymatic activity/volume)2020-06-09 00:10:00* Test Item Value Reference Range Interpretation Comments Amylase Level (test code = 1798-8) 33 25-125 [facility] [place] [facility] or plasma lipase measurement (enzymatic activity/volume)2020-06-09 00:10:00* Test Item Value Reference Range Interpretation Comments Lipase (test code = 3040-3) [facility] CentralFree thyroxine dexgx7384-95-90 00:10:00* Test Item Value Reference Range Interpretation Comments Free Thyroxine Index (test code = 46755-0) 2.7307 1.4-3.8 [facility] [place] [facility] or plasma thyroxine (T4) measurement (mass/volume)2020-06-09 00:10:00* Test Item Value Reference Range Interpretation Comments Thyroxine (T4) (test code = 3026-2) 7.82 4.5-10.9 [facility] [place] [facility] or plasma triiodothyronine resin uptake (T3RU)2020-06-09 00:10:00* Test Item Value Reference Range Interpretation Comments Triiodothyronine (T3) Uptake (test code = 3050-2) 34.92 22.5 -37.0 [facility] [place] [facility] or plasma thyrotropin measurement by detection limit <= 0.005 miu/l (units/volume)2020-06-09 00:10:00* Test Item Value Reference Range Interpretation Comments Thyroid Stimulating Hormone (TSH) (test code = 04573-4) 1.865 0.350-4.940 [facility] CentralFluoroscopic procedure less than one hour tcsshvmf0897-37-68 22:05:00* Test Item Value Reference Range Interpretation Comments Coronavirus (PCR) (test code = Coronavirus (PCR)) NOT DETECTED NOTD ETECTED SARS-CoV-2 PCRHologic Aptima SARS-CoV-2 assay is a nucleic amplification test in tended for the qualitative detection of RNA from SARS-CoV-2 from nasopharyngeal (HOSPITAL INSURANCE CLERK) specimens. It is used under Emergency Use [...] repr at testing oc clinically indicated.Tesing performed by:[facility] Laboratory Services[address] [place] [id number], Cindy garcia MD, PhDMidCoast Medical Center – CentralCXR 2 VIEW - [id number] 19:03:00 [place] [address] Patient Name: NOEMY ARGUETA MR #: [id number] : 1935 Age/Sex: 84/M Req #: [id number] Adm Physician: Ordered by: RACQUEL DELGADO MD Report #: [id number] Location: [facility] Room/Bed: Procedure: [id number] HOPD/CXR 2 VIE W - HOPD Exam [...] 7:09 PM Dictated By: RILEY CERVANTES MD [facility] Signed By: RILEY CERVANTES MD on 06/08/201908 Transcribed By: APOORVA on 06/08/201908 COPY TO: RACQUEL DELGADO MD CT ABDOMEN/PELVIS [id number] 17:22:00 [place] [address] Patient Name: NOEMY ARGUETA MR #: [id number] : 1935 Age/Sex: 84/M Req #: [id number] Adm Physician: Ordered by: PER AU MD Report #: [id number] Location: ER Room/Bed: Procedure: [id number] CT/CT ABDOMEN/P [facility] Exam Date: 05/20/20 Exam Time: [...] in diameter with scattered calcifications PELVIS FINDINGS: [place] el: Stomach: Normal. Small Bowel: Enteric contrast [...] COPY TO: NATHALIE AU MD Urine color erjmqczkpvlep1882-32-01 16:58:00* Test Item Value Reference Range Interpretation Comments Urine Color (test code = 5778-6) YELLOW YELLOW [facility] CentralUrine oextfrx0519-43-34 16:58:00* Test Item Value Reference Range Interpretation Comments Urine Clarity (test code = 12863-4) SL CLOUDY CLEAR [facility] [place] [facility]pecific gravity of Urine by Test strip 2020-05-20 16:58:00* Test Item Value Reference Range Interpretation Comments Urine Specific [place] (test code = 5811-5) 1.010 1.010-1.02 5 [facility] CentralUrine pH measurement by automated test jkcwp5181-03-12 16:58:00* Test Item Value Reference Range Interpretation Comments Urine pH (test code = 72945-5) 6 5-7 [facility] CentralUrine leukocyte esterase detection by iginvvyz4732-56-26 16:58:00* Test Item Value Reference Range Interpretation Comments Urine Leukocyte Esterase (test code = 5799-2) NEGATIVE NEGATIVE [facility] CentralUrine nitrite baworredo7101-78-90 16:58:00* Test Item Value Reference Range Interpretation Comments Urine Nitrite (test code = 61658-4) NEGATIVE NEGATIVE [facility] CentralU[facility] protein measurement by test strip (mass/volume)2020-05-20 16:58:00* Test Item Value Reference Range Interpretation Comments Urine Protein (test code = 5804-0) NEGATIVE NEGATIVE [facility] CentralUrine glucose yrcdhapri7252-69-19 16:58:00* Test Item Value Reference Range Interpretation Comments Urine Glucose (UA) (test code = 2349-9) NEGATIVE NEGATIVE [facility] CentralUrine ketones detection by automated test xwegd8792-60-26 16:58:00* Test Item Value Reference Range Interpretation Comments Urine Ketones (test code = 39614-6) NEGATIVE NEGATIVE [facility] CentralUrine urobilinogen measurement by test strip (mass/volume)2020-05-20 16:58:00* Test Item Value Reference Range Interpretation Comments Urine Urobilinogen (test code = 38207-0) 0.2 0.2-1 [facility] CentralU[facility] total bilirubin measurement (mass/volume)2020-05-20 16:58:00* Test Item Value Reference Range Interpretation Comments Urine Bilirubin (test code = 1978-6) NEGATIVE NEGATIVE [facility] CentralUrine erythrocytes fcuchcqvr5040-98-07 16:58:00* Test Item Value Reference Range Interpretation Comments Urine Blood (test code = 27294-3) NEGATIVE NEGATIVE [facility] CentralAutomated urine sediment leukocyte count by microscopy (number/high power field)2020-05-20 16:58:00* Test Item Value Reference Range Interpretation Comments Urine WBC (test code = 5821-4) NONE 0-5 [facility] CentralErythrocytes detection in urine sediment by light jicdbukmdc2189-19-10 16:58:00* Test Item Value Reference Range Interpretation Comments Urine RBC (test code = 23468-5) NONE 0-5 [facility] CentralBacteria detection in urine sediment by light cvivswzanz8840-12-59 16:58:00* Test Item Value Reference Range Interpretation Comments Urine Bacteria (test code = 42429-9) FEW NONE [facility] CentralEpithelial cells detection in urine sediment by light vxmwhiiuqc5710-40-05 16:58:00* Test Item Value Reference Range Interpretation Comments Urine Epithelial Cells (test code = 70613-9) RARE NONE [facility] CentralUrine color nbvedllvvahpr1385-94-07 16:58:00* Test Item Value Reference Range Interpretation Comments Urine Color (test code = 5778-6) YELLOW YELLOW [facility] CentralUrine zcwioic6480-24-47 16:58:00* Test Item Value Reference Range Interpretation Comments Urine Clarity (test code = 57562-6) SL CLOUDY CLEAR [facility]pecific gravity of Urine by Test strip 2020-05-20 16:58:00* Test Item Value Reference Range Interpretation Comments Urine Specific [place] (test code = 5811-5) 1.010 1.010-1.02 5 [facility] CentralU[facility] pH measurement by automated test fylqz1353-40-70 16:58:00* Test Item Value Reference Range Interpretation Comments Urine pH (test code = 75488-6) 6 5-7 [facility] CentralUrine leukocyte esterase detection by vijuhybc4791-54-66 16:58:00* Test Item Value Reference Range Interpretation Comments Urine Leukocyte Esterase (test code = 5799-2) NEGATIVE NEGATIVE [facility] CentralUrine nitrite xcdjhtscg1003-33-49 16:58:00* Test Item Value Reference Range Interpretation Comments Urine Nitrite (test code = 57770-7) NEGATIVE NEGATIVE [facility] Central[facility] protein measurement by test strip (mass/volume)2020-05-20 16:58:00* Test Item Value Reference Range Interpretation Comments Urine Protein (test code = 5804-0) NEGATIVE NEGATIVE [facility] CentralU[facility] glucose cmohnzsfz0559-95-76 16:58:00* Test Item Value Reference Range Interpretation Comments Urine Glucose (UA) (test code = 2349-9) NEGATIVE NEGATIVE [facility] Central[facility] ketones detection by automated test gfwpl9169-68-35 16:58:00* Test Item Value Reference Range Interpretation Comments Urine Ketones (test code = 42544-4) NEGATIVE NEGATIVE [facility] CentralUrine urobilinogen measurement by test strip (mass/volume)2020-05-20 16:58:00* Test Item Value Reference Range Interpretation Comments Urine Urobilinogen (test code = 62425-8) 0.2 0.2-1 [facility] Central[facility] total bilirubin measurement (mass/volume)2020-05-20 16:58:00* Test Item Value Reference Range Interpretation Comments Urine Bilirubin (test code = 1978-6) NEGATIVE NEGATIVE [facility] CentralUrine erythrocytes zaettiafy2526-44-48 16:58:00* Test Item Value Reference Range Interpretation Comments Urine Blood (test code = 53109-8) NEGATIVE NEGATIVE [facility] CentralAutomated urine sediment leukocyte count by microscopy (number/high power field)2020-05-20 16:58:00* Test Item Value Reference Range Interpretation Comments Urine WBC (test code = 5821-4) NONE 0-5 [facility] CentralErythrocytes detection in urine sediment by light yhospherlu8447-83-00 16:58:00* Test Item Value Reference Range Interpretation Comments Urine RBC (test code = 79318-9) NONE 0-5 [facility] CentralBacteria detection in urine sediment by light eioqseicrp9877-08-11 16:58:00* Test Item Value Reference Range Interpretation Comments Urine Bacteria (test code = 15703-2) FEW NONE [facility] CentralEpithelial cells detection in urine sediment by light idqveuyikw6044-68-31 16:58:00* Test Item Value Reference Range Interpretation Comments Urine Epithelial Cells (test code = 81587-3) RARE NONE [facility] CentralBlood leukocytes automated count (number/volume)2020-05-20 15:36:00* Test Item Value Reference Range Interpretation Comments White Blood Count (test code = 6690-2) 8.36 4.8-10.8 [facility] CentralBlood erythrocytes automated count (number/volume)2020-05-20 15:36:00* Test Item Value Reference Range Interpretation Comments Red Blood Count (test code = 789-8) 5.04 4.3-5.7 [facility] CentralBlood hemoglobin measurement (moles/volume)2020-05-20 15:36:00* Test Item Value Reference Range Interpretation Comments Hemoglobin (test code = 36044-8) 15.1 14.0-18.0 [facility] CentralAutomated blood hematocrit (volume fraction)2020-05-20 15:36:00* Test Item Value Reference Range Interpretation Comments Hematocrit (test code = 4544-3) 45.8 38.2-49.6 [facility] CentralAutomated erythrocyte mean corpuscular yeeuxz8755-13-86 15:36:00* Test Item Value Reference Range Interpretation Comments Mean Corpuscular Volume (test code = 787-2) 90.9 81-99 [facility] CentralAutomated erythrocyte mean corpuscular hemoglobin (mass per erythrocyte)2020-05-20 15:36:00* Test Item Value Reference Range Interpretation Comments Mean Corpuscular Hemoglobin (test code = 785-6) 30.0 28-32 [facility] CentralAutomated erythrocyte mean corpuscular hemoglobin concentration measurement (mass/volume)2020-05-20 15:36:00* Test Item Value Reference Range Interpretation Comments Mean Corpuscular Hemoglobin Concent (test code = 786-4) 33.0 31-35 [facility] CentralRDW VxtAj-Btn9583-79-21 15:36:00* Test Item Value Reference Range Interpretation Comments Red Cell Distribution Width (test code = 87902-1) 14.0 11.7 -14.4 [facility] CentralAutomated blood platelet count (count/volume)2020-05-20 15:36:00* Test Item Value Reference Range Interpretation Comments Platelet Count (test code = 777-3) 187 140-360 [facility] CentralAutomated blood segmented neutrophil count as percentage of total fkqrgtihxy0213-37-52 15:36:00* Test Item Value Reference Range Interpretation Comments Neutrophils (%) (Auto) (test code = 98088-9) 65.9 38.7-80.0 [facility] CentralAutomated blood lymphocyte count as percentage ot total ukujwzoafi5107-94-65 15:36:00* Test Item Value Reference Range Interpretation Comments Lymphocytes (%) (Auto) (test code = 736-9) 24.4 18.0-39.1 [facility] CentralAutomated blood monocyte count as percentage of total tvbhjgmfoo9873-14-09 15:36:00* Test Item Value Reference Range Interpretation Comments Monocytes (%) (Auto) (test code = 5905-5) 8.1 4.4-11.3 [facility] CentralAutomated blood eosinophil count as percentage of total raznfoohvx0346-49-07 15:36:00* Test Item Value Reference Range Interpretation Comments Eosinophils (%) (Auto) (test code = 713-8) 0.6 0.0-6.0 [facility] CentralAutomated blood basophil count as percentage of total ftwjinokbu5211-84-38 15:36:00* Test Item Value Reference Range Interpretation Comments Basophils (%) (Auto) (test code = 706-2) 0.6 0.0-1.0 [facility] CentralFluoroscopic procedure less than one hour qysnuyfp7673-01-70 15:36:00* Test Item Value Reference Range Interpretation Comments IM GRANULOCYTES % (test code = IM GRANULOCYTES %) 0.4 0.0- 1.0 [facility] CentralAutomated blood neutrophil count 2020-05-20 15:36:00* Test Item Value Reference Range Interpretation Comments Neutrophils # (Auto) (test code = 751-8) 5.5 2.1-6.9 [facility] CentralBlood lymphocytes count (number/volume) 2020-05-20 15:36:00* Test Item Value Reference Range Interpretation Comments Lymphocytes # (Auto) (test code = 37702-9) 2.0 1.0-3.2 [facility] CentralBlood monocytes automated count (number/volume)2020-05-20 15:36:00* Test Item Value Reference Range Interpretation Comments Monocytes # (Auto) (test code = 742-7) 0.7 0.2-0.8 [facility] CentralAutomated blood eosinophil count 2020-05-20 15:36:00* Test Item Value Reference Range Interpretation Comments Eosinophils # (Auto) (test code = 711-2) 0.1 0.0-0.4 [facility] CentralAutomated blood basophil count (count/volume)2020-05-20 15:36:00* Test Item Value Reference Range Interpretation Comments Basophils # (Auto) (test code = 704-7) 0.1 0.0-0.1 [facility] CentralFluoroscopic procedure less than one hour ozxidfba6264-65-82 15:36:00* Test Item Value Reference Range Interpretation Comments Absolute Immature Granulocyte (auto (faye t code = Absolute Immature Granulocyte (auto) 0.03 0-0.1 [facility] or plasma sodium measurement (moles/volume)2020-05-20 15:36:00* Test Item Value Reference Range Interpretation Comments Sodium Level (test code = 2951-2) 140 136-145 [facility] [place] [facility] or plasma potassium measurement (moles/volume)2020-05-20 15:36:00* Test Item Value Reference Range Interpretation Comments Potassium Level (test code = 2823-3) 4.1 3.5-5.1 [facility] [place] [facility] or plasma chloride measurement (moles/volume)2020-05-20 15:36:00* Test Item Value Reference Range Interpretation Comments Chloride Level (test code = 2075-0) 104 98-107 [facility] [place] [facility] or plasma carbon dioxide, total measurement (moles/volume)2020-05-20 15:36:00* Test Item Value Reference Range Interpretation Comments Carbon Dioxide Level (test code = 2028-9) 23 22-29 [facility] [place] [facility]erum or plasma anion cuw3215-85-11 15:36:00* Test Item Value Reference Range Interpretation Comments Anion Gap (test code = 39989-8) 17.1 8-16 [facility] [place] [facility] or plasma urea nitrogen measurement (mass/volume)2020-05-20 15:36:00* Test Item Value Reference Range Interpretation Comments Blood Urea Nitrogen (test code = 3094-0) 12 7-26 [facility] [place] [facility] or plasma creatinine measurement (mass/volume)2020-05-20 15:36:00* Test Item Value Reference Range Interpretation Comments Creatinine (test code = 2160-0) 1.31 0.72-1.25 [facility] [place] [facility]er[facility] or plasma urea nitrogen/creatinine mass xvetl1839-55-99 15:36:00* Test Item Value Reference Range Interpretation Comments BUN/Creatinine Ratio (test code = 3097-3) 9 6-25 [facility] CentralEstimated glomerular filtration rate (GFR) rndsoufyxebpr3911-73-18 15:36:00* Test Item Value Reference Range Interpretation Comments Estimat Glomerular Filtration Rate (test code = 693722192) 52 >60 Ranges were taken from the National Kidney Disease Education Program and the [facility] Kidney Foundation literature.Reference ranges:60 or greater: Bbmyeg87-58 ( for 3 consecutive months): Chronic kidney disease 15 or less: Kidney failureMidCo[facility] – CentralGlucose gkwgnxvlcde8880-63-25 15:36:00* Test Item Value Reference Range Interpretation Comments Glucose Level (test code = UIR8025) 120 74-118 [facility] [place] [facility] or plasma calcium measurement (mass/volume)2020-05-20 15:36:00* Test Item Value Reference Range Interpretation Comments Calcium Level (test code = 95447-6) 9.6 8.4-10.2 [facility] [place] [facility] or plasma magnesium measurement (mass/volume)2020-05-20 15:36:00* Test Item Value Reference Range Interpretation Comments Magnesium Level (test code = 22995-6) 1.5 1.3-2.1 [facility] [place] [facility] or plasma total bilirubin measurement (mass/volume)2020-05-20 15:36:00* Test Item Value Reference Range Interpretation Comments Total Bilirubin (test code = 1975-2) 0.5 0.2-1.2 [facility] CentralFluoroscopic procedure less than one hour esmjhszs2815-80-27 15:36:00* Test Item Value Reference Range Interpretation Comments Aspartate Amino Transf (AST/SGOT) (test code = Aspartate Amino Transf (AST/SGOT)) 15 5-34 [facility] [place] [facility] or plasma alanine aminotransferase measurement (enzymatic activity/volume)2020-05-20 15:36:00* Test Item Value Reference Range Interpretation Comments Alanine Aminotransferase (ALT/SGPT) (test code = 1742-6) 10 0-55 [facility] [place] [facility]er[facility] or plasma protein measurement (mass/volume)2020-05-20 15:36:00* Test Item Value Reference Range Interpretation Comments Total Protein (test code = 2885-2) 7.6 6.5-8.1 [facility] [place] [facility] or plasma albumin measurement (mass/volume)2020-05-20 15:36:00* Test Item Value Reference Range Interpretation Comments Albumin (test code = 1751-7) 4.0 3.5-5.0 [facility] CentralPlasma globulin measurement (mass/volume) 2020-05-20 15:36:00* Test Item Value Reference Range Interpretation Comments Globulin (test code = 97576-1) 3.6 2.3-3.5 [facility] [place] [facility] or plasma albumin/globulin mass jpqtz9025-24-32 15:36:00* Test Item Value Reference Range Interpretation Comments Albumin/Globulin Ratio (test code = 1759-0) 1.1 0.8-2.0 [facility] [place] [facility] or plasma alkaline phosphatase measurement (enzymatic activity/volume)2020-05-20 15:36:00* Test Item Value Reference Range Interpretation Comments Alkaline Phosphatase (test code = 6768-6) 54 40-150 [facility] CentralBlood leukocytes automated count (number/volume)2020-05-20 15:36:00* Test Item Value Reference Range Interpretation Comments White Blood Count (test code = 6690-2) 8.36 4.8-10.8 [facility] CentralBlood erythrocytes automated count (number/volume)2020-05-20 15:36:00* Test Item Value Reference Range Interpretation Comments Red Blood Count (test code = 789-8) 5.04 4.3-5.7 [facility] CentralBlood hemoglobin measurement (moles/volume)2020-05-20 15:36:00* Test Item Value Reference Range Interpretation Comments Hemoglobin (test code = 82621-5) 15.1 14.0-18.0 [facility] CentralAutomated blood hematocrit (volume fraction)2020-05-20 15:36:00* Test Item Value Reference Range Interpretation Comments Hematocrit (test code = 4544-3) 45.8 38.2-49.6 [facility] CentralAutomated erythrocyte mean corpuscular ptupyy5639-12-69 15:36:00* Test Item Value Reference Range Interpretation Comments Mean Corpuscular Volume (test code = 787-2) 90.9 81-99 [facility] CentralAutomated erythrocyte mean corpuscular hemoglobin (mass per erythrocyte)2020-05-20 15:36:00* Test Item Value Reference Range Interpretation Comments Mean Corpuscular Hemoglobin (test code = 785-6) 30.0 28-32 [facility] CentralAutomated erythrocyte mean corpuscular hemoglobin concentration measurement (mass/volume)2020-05-20 15:36:00* Test Item Value Reference Range Interpretation Comments Mean Corpuscular Hemoglobin Concent (test code = 786-4) 33.0 31-35 [facility] CentralRDW ZxhTw-Rwk0942-60-21 15:36:00* Test Item Value Reference Range Interpretation Comments Red Cell Distribution Width (test code = 85604-7) 14.0 11.7 -14.4 [facility] CentralAutomated blood platelet count (count/volume)2020-05-20 15:36:00* Test Item Value Reference Range Interpretation Comments Platelet Count (test code = 777-3) 187 140-360 [facility] CentralAutmission family health centered blood segmented neutrophil count as percentage of total dfzqdxsfiy7000-94-12 15:36:00* Test Item Value Reference Range Interpretation Comments Neutrophils (%) (Auto) (test code = 37594-8) 65.9 38.7-80.0 [facility] CentralAutomated blood lymphocyte count as percentage ot total ikakzfbuff7958-69-83 15:36:00* Test Item Value Reference Range Interpretation Comments Lymphocytes (%) (Auto) (test code = 736-9) 24.4 18.0-39.1 [facility] CentralAutomated blood monocyte count as percentage of total tlimuppqfi6036-14-79 15:36:00* Test Item Value Reference Range Interpretation Comments Monocytes (%) (Auto) (test code = 5905-5) 8.1 4.4-11.3 [facility] CentralAutomated blood eosinophil count as percentage of total wnpxpxvmul4015-52-84 15:36:00* Test Item Value Reference Range Interpretation Comments Eosinophils (%) (Auto) (test code = 713-8) 0.6 0.0-6.0 [facility] CentralAutomated blood basophil count as percentage of total fcxvracace5227-49-43 15:36:00* Test Item Value Reference Range Interpretation Comments Basophils (%) (Auto) (test code = 706-2) 0.6 0.0-1.0 [facility] CentralFluoroscopic procedure less than one hour zrxoabia7630-80-56 15:36:00* Test Item Value Reference Range Interpretation Comments IM GRANULOCYTES % (test code = IM GRANULOCYTES %) 0.4 0.0- 1.0 [facility] CentralAutomated blood neutrophil count 2020-05-20 15:36:00* Test Item Value Reference Range Interpretation Comments Neutrophils # (Auto) (test code = 751-8) 5.5 2.1-6.9 [facility] CentralBlood lymphocytes count (number/volume) 2020-05-20 15:36:00* Test Item Value Reference Range Interpretation Comments Lymphocytes # (Auto) (test code = 65537-8) 2.0 1.0-3.2 [facility] CentralBlood monocytes automated count (number/volume)2020-05-20 15:36:00* Test Item Value Reference Range Interpretation Comments Monocytes # (Auto) (test code = 742-7) 0.7 0.2-0.8 [facility] CentralAutomated blood eosinophil count 2020-05-20 15:36:00* Test Item Value Reference Range Interpretation Comments Eosinophils # (Auto) (test code = 711-2) 0.1 0.0-0.4 [facility] CentralAutomated blood basophil count (count/volume)2020-05-20 15:36:00* Test Item Value Reference Range Interpretation Comments Basophils # (Auto) (test code = 704-7) 0.1 0.0-0.1 [facility] CentralFluoroscopic procedure less than one hour zpjbggnj3546-99-43 15:36:00* Test Item Value Reference Range Interpretation Comments Absolute Immature Granulocyte (auto (faye t code = Absolute Immature Granulocyte (auto) 0.03 0-0.1 [facility] [place] [facility] or plasma sodium measurement (moles/volume)2020-05-20 15:36:00* Test Item Value Reference Range Interpretation Comments Sodium Level (test code = 2951-2) 140 136-145 [facility] [place] [facility]er[facility] or plasma potassium measurement (moles/volume)2020-05-20 15:36:00* Test Item Value Reference Range Interpretation Comments Potassium Level (test code = 2823-3) 4.1 3.5-5.1 [facility] [place] [facility]er[facility] or plasma chloride measurement (moles/volume)2020-05-20 15:36:00* Test Item Value Reference Range Interpretation Comments Chloride Level (test code = 2075-0) 104 98-107 [facility] [place] [facility]er[facility] or plasma carbon dioxide, total measurement (moles/volume)2020-05-20 15:36:00* Test Item Value Reference Range Interpretation Comments Carbon Dioxide Level (test code = 2028-9) 23 22-29 [facility] [place] [facility]er[facility] or plasma anion cmc6494-35-15 15:36:00* Test Item Value Reference Range Interpretation Comments Anion Gap (test code = 32866-6) 17.1 8-16 [facility] [place] [facility]er[facility] or plasma urea nitrogen measurement (mass/volume)2020-05-20 15:36:00* Test Item Value Reference Range Interpretation Comments Blood Urea Nitrogen (test code = 3094-0) 12 7-26 [facility] [place] [facility]er[facility] or plasma creatinine measurement (mass/volume)2020-05-20 15:36:00* Test Item Value Reference Range Interpretation Comments Creatinine (test code = 2160-0) 1.31 0.72-1.25 [facility] [place] [facility]er[facility] or plasma urea nitrogen/creatinine mass kndlb6102-83-76 15:36:00* Test Item Value Reference Range Interpretation Comments BUN/Creatinine Ratio (test code = 3097-3) 9 6-25 [facility] CentralEstimated glomerular filtration rate (GFR) bhunscwdximpx0518-91-71 15:36:00* Test Item Value Reference Range Interpretation Comments Estimat Glomerular Filtration Rate (test code = 928534054) 52 >60 Ranges were taken from the National Kidney Disease Education Program and the [facility] Foundation literature.Reference ranges:60 or greater: Haeqcx34-37 ( for 3 consecutive months): Chronic kidney disease 15 or less: Kidney failureMidCo[facility] Center – CentralGlucose mhhklptvxhr3445-42-44 15:36:00* Test Item Value Reference Range Interpretation Comments Glucose Level (test code = FSM7524) 120 74-118 [facility] [place] [facility]er[facility] or plasma calcium measurement (mass/volume)2020-05-20 15:36:00* Test Item Value Reference Range Interpretation Comments Calcium Level (test code = 61409-8) 9.6 8.4-10.2 [facility] [place] [facility]er[facility] or plasma magnesium measurement (mass/volume)2020-05-20 15:36:00* Test Item Value Reference Range Interpretation Comments Magnesium Level (test code = 10056-5) 1.5 1.3-2.1 [facility] [place] [facility]er[facility] or plasma total bilirubin measurement (mass/volume)2020-05-20 15:36:00* Test Item Value Reference Range Interpretation Comments Total Bilirubin (test code = 1975-2) 0.5 0.2-1.2 [facility] CentralFluoroscopic procedure less than one hour ydkbtrpf8774-72-39 15:36:00* Test Item Value Reference Range Interpretation Comments Aspartate Amino Transf (AST/SGOT) (test code = Aspartate Amino Transf (AST/SGOT)) 15 5-34 [facility] [place] [facility]er[facility] or plasma alanine aminotransferase measurement (enzymatic activity/volume)2020-05-20 15:36:00* Test Item Value Reference Range Interpretation Comments Alanine Aminotransferase (ALT/SGPT) (test code = 1742-6) 10 0-55 [facility] [place] [facility]er[facility] or plasma protein measurement (mass/volume)2020-05-20 15:36:00* Test Item Value Reference Range Interpretation Comments Total Protein (test code = 2885-2) 7.6 6.5-8.1 [facility] [place] [facility]er[facility] or plasma albumin measurement (mass/volume)2020-05-20 15:36:00* Test Item Value Reference Range Interpretation Comments Albumin (test code = 1751-7) 4.0 3.5-5.0 [facility] CentralPlasma globulin measurement (mass/volume) 2020-05-20 15:36:00* Test Item Value Reference Range Interpretation Comments Globulin (test code = 27822-0) 3.6 2.3-3.5 [facility] [place] [facility]er[facility] or plasma albumin/globulin mass iocfs8339-67-54 15:36:00* Test Item Value Reference Range Interpretation Comments Albumin/Globulin Ratio (test code = 1759-0) 1.1 0.8-2.0 [facility] [place] [facility]er[facility] or plasma alkaline phosphatase measurement (enzymatic activity/volume)2020-05-20 15:36:00* Test Item Value Reference Range Interpretation Comments Alkaline Phosphatase (test code = 6768-6) 54 40-150 [facility] [place] [facility]er[facility] or plasma magnesium measurement (mass/volume)2020-05-20 15:36:00* Test Item Value Reference Range Interpretation Comments Magnesium Level (test code = 94001-1) 1.5 1.3-2.1 [facility] [place] [facility] or plasma magnesium measurement (mass/volume)2020-05-20 15:36:00* Test Item Value Reference Range Interpretation Comments Magnesium Level (test code = 48339-1) 1.5 1.3-2.1 [facility] CentralCT [facility]LV[facility] [id number] [facility] [place] [address] [place] Name: NOEMY ARGUETA MR #: [id number] : 1935 Age/Sex: 84/M Req #: [id number] Adm Physician: Ordered by: NIECY ARZOLA MD Rep ort #: [id number] Location: CT Room/B ed: Procedure: [id number] CT/CT ABDOMEN/ PELVIS W Exam Date: 05/12/20 [...] TO: NIECY ARZOLA MD ABDOMEN-1VIEW (KUB)2020-05-11 18:06:00 [place] [address] Patient Name: NOEMY ARGUETA MR #: [id number] : 1935 Age/Sex: 84/M Req #: [id number] Adm Physician: Ordered by: KLAUDIA ARZOLA MD Report #: [id number] Location: [facility] Room/Bed: Procedure: [id number] DX/ABDOMEN-1VI EW (KUB) Exam Date: 05/11/20 Exam [...] MD Fluoroscopic procedure less than one hour hqerrlyy1259-01-42 19:30:00* Test Item Value Reference Range Interpretation [...] under 564(g) of the ACT.Testing performed by [address]Fluoroscopic procedure less than one hour duration [...] under 564(g) of the ACT.Testing performed by [address] [address]NJWMidCo[facility] – CentralCHEST SINGLE (PORTABLE)2020-04-02 07:07:[address] [place], [place] [address] Patient Name: NOEMY ARGUETA MR #: [id number] : 1935 Age/Sex: 84/M Req #: [id number] Adm Physician: AG JACOBSEN MD Ordered by: ANITHA POLANCO MD, MD Report #: [id number] Location: [facility]/Bed: [place] [address] Procedure: [id number] DX/CHEST SI NGLE (PORTABLE) Exam Date: 04/02/20 [...] Kinase (test code = 2157-6) 127 30-200 [facility] [place] [facility] or plasma creatine kinase MB measurement (mass/volume)2020-04-02 07:01:00* Test Item Value Reference Range Interpretation Comments Creatine Kinase MB (test code = 96795-0) 2.00 0-5.0 [facility] CentralTroponin I measurement by highly sensitive enzyme nugybvmmoos4094-31-17 07:01:00* Test Item Value Reference Range Interpretation Comments Troponin I (test code = 08122-8) 0.003 0-0.300 [facility] [place] [facility]er[facility] or plasma creatine kinase measurement (enzymatic activity/volume)2020-04-02 07:01:00* Test Item Value Reference Range Interpretation Comments Creatine Kinase (test code = 2157-6) 127 30-200 [facility] [place] [facility]er[facility] or plasma creatine kinase MB measurement (mass/volume)2020-04-02 07:01:00* Test Item Value Reference Range Interpretation Comments Creatine Kinase MB (test code = 41398-5) 2.00 0-5.0 [facility] CentralTroponin I measurement by highly sensitive enzyme wlkrrlxtqoa8385-35-50 07:01:00* Test Item Value Reference Range Interpretation Comments Troponin I (test code = 14436-2) 0.003 0-0.300 [facility] [place] [facility]er[facility] or plasma creatine kinase measurement (enzymatic activity/volume)2020-04-02 07:01:00* Test Item Value Reference Range Interpretation Comments Creatine Kinase (test code = 2157-6) 127 30-200 [facility] [place] [facility]er[facility] or plasma creatine kinase MB measurement (mass/volume)2020-04-02 07:01:00* Test Item Value Reference Range Interpretation Comments Creatine Kinase MB (test code = 85675-8) 2.00 0-5.0 [facility] CentralTroponin I measurement by highly sensitive enzyme dicoasjtozw4440-48-76 07:01:00* Test Item Value Reference Range Interpretation Comments Troponin I (test code = 33215-6) 0.003 0-0.300 [facility] CentralCT BRAIN PS4631-14-89 11:20:00 [place] [address] Patient Name: NOEMY ARGUETA MR #: [id number] : 1935 Age/Sex: 84/M Req #: [id number] Adm Physician: Ordered by: ANITHA POLANCO MD, MD Report #: [id number] Location: [facility] /Bed: Procedure: [id number] CT/CT BRAIN WO Exam Date: 04/01/20 Exam [...] TO: ANITHA POLANCO CHEST SINGLE (PORTABLE)2020-04-01 11:17:00 [place] [address] Patient Name: NOEMY ARGUETA MR #: [id number] : 1935 Age/Sex: 84/M Req #: [id number] Adm Physician: Ordered by: ANITHA POLANCO MD, MD Report #: [id number] Location: ER Room/Bed: Procedure: [id number] DX/CHEST SI NGLE (PORTABLE) Exam Date: 04/01/20 Exam Time: 1025 REPORT STATUS: Signed EXAMINATIO N: CHEST SINGLE (PORTABLE) INDICATION: Y ERMD ORDER [id number] Y COMPARISON: 03/13/2020 FINDINGS: AP view TUBES [...] By: KIRSTY JARVIS 18 Transc ribed By: APOORVA on 04/01/201118 COPY TO: ANITHA POLANCO Prothrombin time (PT) in platelet poor plasma by coagulation syctv6278-10-81 10:15:00* Test Item Value Reference Range Interpretation Comments Prothrombin Time (test code = 5902-2) 14.3 11.9-14.5 [facility] CentralINR in Platelet poor plasma by Coagulation kvkps5655-50-15 10:15:00* Test Item Value Reference Range Interpretation Comments Prothromb Time International Ratio (test code = 6301-6) 1.05 Oral Anticoagulant Therapy INR Values:1. Low Intensity Therapy 1.5 - 2.02 . Moderate Intensity Therapy 2.0 - 3.03. High Intensity Therapy(1) 2.5 - 3. 54. High Intensity Therapy(2) 3.0 - 4.05. Panic Value INR > 5.0 [facility] CentralActivated partial thromboplastin time (aPTT) in platelet poor plasma by coagulation vqamt3198-00-47 10:15:00* Test Item Value Reference Range Interpretation Comments Activated Partial Thromboplast Time (test code = 23372-1) 30.2 23.8-35.5 [facility] CentralFluoroscopic procedure less than one hour bscuaqhw4872-12-79 10:15:00* Test Item Value Reference Range Interpretation Comments Lactic Acid Level (test code = Lactic Acid Level) 1.5 0.5- 2.0 [facility] CentralBNP Bon-uAju3698-90-03 10:15:00* Test Item Value Reference Range Interpretation Comments B-Type Natriuretic Peptide (test code = 16155-0) 32.1 0-100 [facility] [place] [facility] or plasma thyrotropin measurement by detection limit <= 0.005 miu/l (units/volume)2020-04-01 10:15:00* Test Item Value Reference Range Interpretation Comments Thyroid Stimulating Hormone (TSH) (test code = 42976-4) 1.327 0.350-4.940 [facility] CentralBlood bnmamdo7722-38-65 10:15:00* Test Item Value Reference Range Interpretation Comments Blood Culture (test code = 20340016) NO GROWTH AFTER 5 DAYS, FINAL REPORT [facility] CentralProthrombin time (PT) in platelet poor plasma by coagulation hdqgy8668-42-34 10:15:00* Test Item Value Reference Range Interpretation Comments Prothrombin Time (test code = 5902-2) 14.3 11.9-14.5 [facility] CentralINR in Platelet poor plasma by Coagulation hvnmo9506-47-56 10:15:00* Test Item Value Reference Range Interpretation Comments Prothromb Time International Ratio (test code = 6301-6) 1.05 Oral Anticoagulant Therapy INR Values:1. Low Intensity Therapy 1.5 - 2.02 . Moderate Intensity Therapy 2.0 - 3.03. High Intensity Therapy(1) 2.5 - 3. 54. High Intensity Therapy(2) 3.0 - 4.05. Panic Value INR > 5.0 [facility] CentralActivated partial thromboplastin time (aPTT) in platelet poor plasma by coagulation kzwst0019-44-89 10:15:00* Test Item Value Reference Range Interpretation Comments Activated Partial Thromboplast Time (test code = 96201-7) 30.2 23.8-35.5 [facility] CentralFluoroscopic procedure less than one hour lbgtscga6528-04-81 10:15:00* Test Item Value Reference Range Interpretation Comments Lactic Acid Level (test code = Lactic Acid Level) 1.5 0.5- 2.0 [facility] Maq-kYdc7813-88-03 10:15:00* Test Item Value Reference Range Interpretation Comments B-Type Natriuretic Peptide (test code = 72803-6) 32.1 0-100 [facility] [place] [facility] or plasma thyrotropin measurement by detection limit <= 0.005 miu/l (units/volume)2020-04-01 10:15:00* Test Item Value Reference Range Interpretation Comments Thyroid Stimulating Hormone (TSH) (test code = 19038-9) 1.327 0.350-4.940 [facility] CentralBlood lqssskj4422-42-05 10:15:00* Test Item Value Reference Range Interpretation Comments Blood Culture (test code = 64794766) NO GROWTH AFTER 5 DAYS, FINAL REPORT [facility] CentralProthrombin time (PT) in platelet poor plasma by coagulation fjesv8230-11-32 10:15:00* Test Item Value Reference Range Interpretation Comments Prothrombin Time (test code = 5902-2) 14.3 11.9-14.5 [facility] CentralINR in Platelet poor plasma by Coagulation lwkks2233-21-62 10:15:00* Test Item Value Reference Range Interpretation Comments Prothromb Time International Ratio (test code = 6301-6) 1.05 Oral Anticoagulant Therapy INR Values:1. Low Intensity Therapy 1.5 - 2.02 . Moderate Intensity Therapy 2.0 - 3.03. High Intensity Therapy(1) 2.5 - 3. 54. High Intensity Therapy(2) 3.0 - 4.05. Panic Value INR > 5.0 [facility] CentralActivated partial thromboplastin time (aPTT) in platelet poor plasma by coagulation ufold8965-50-75 10:15:00* Test Item Value Reference Range Interpretation Comments Activated Partial Thromboplast Time (test code = 37472-2) 30.2 23.8-35.5 [facility] CentralFluoroscopic procedure less than one hour dzavafnl1713-42-48 10:15:00* Test Item Value Reference Range Interpretation Comments Lactic Acid Level (test code = Lactic Acid Level) 1.5 0.5- 2.0 [facility] CentralBNP Nyk-zRzv2288-04-03 10:15:00* Test Item Value Reference Range Interpretation Comments B-Type Natriuretic Peptide (test code = 63432-8) 32.1 0-100 [facility] Central[facility] igmnkts0822-00-03 10:15:00* Test Item Value Reference Range Interpretation Comments Blood Culture (test code = 30240081) NO GROWTH AFTER 5 DAYS, FINAL REPORT [facility] CentralCHEST SINGLE (PORTABLE)2020-03-13 18:24:00 [place] [address] Patient Name: NOEMY ARGUETA MR #: [id number] : 1935 Age/Sex: 84/M Req #: [id number] Adm Physician: Ordered by: PER AU MD Report #: [id number] Location: ER Room/Bed: Procedure: [id number] DX/CHEST SINGLE (PORTABLE) Exam Date: 03/13/20 Exam [...] Interpretation Comments Bedside Glucose (test code = 65828-3) 123 70-120 H Meter ID: [id number] [facility] CampusClumped Platelets 2019-05-15 08:26:00* Test Item Value Reference Range Interpretation Comments Clumped Platelets (test code = 7796-6) NONE NONE [facility] Resources[facility] Kizdr7776-37-16 05:59:00* Test Item Value Reference Range Interpretation Comments Sodium Level (test code = 2951-2) 141 136-145 [facility] CentralPotassium Fjran9615-45-22 05:59:00* Test Item Value Reference Range Interpretation Comments Potassium Level (test code = 2823-3) 3.4 3.5-5.1 L [facility] CentralChloride Bskum0875-87-94 05:59:00* Test Item Value Reference Range Interpretation Comments Chloride Level (test code = 2075-0) 110 98-107 H [facility] CentralCarbon Dioxide Tpspv2858-40-98 05:59:00* Test Item Value Reference Range Interpretation Comments Carbon Dioxide Level (test code = 2028-9) 23 22-29 [facility] CentralAnion Kcf4284-05-97 05:59:00* Test Item Value Reference Range Interpretation Comments Anion Gap (test code = 44375-4) 11.4 8-16 [facility] Urea Algeamow5548-93-13 05:59:00* Test Item Value Reference Range Interpretation Comments Blood Urea Nitrogen (test code = 3094-0) 15 7-26 [facility] CentralCreatinine2019-08-16 05:59:00* Test Item Value Reference Range Interpretation Comments Creatinine (test code = 2160-0) 0.96 0.72-1.25 [facility] CentralBUN/Creatinine Xzuuu4794-27-30 05:59:00* Test Item Value Reference Range Interpretation Comments BUN/Creatinine Ratio (test code = 3097-3) 16 6-25 [facility] CentralEstimat Glomerular Filtration Rate 2019-05-15 05:59:00* Test Item Value Reference Range Interpretation Comments Estimat Glomerular Filtration Rate (test code = 818083150) > 60 >60 Ranges were taken from the National Kidney Disease Education Program and the [facility] Kidney Foundation literature.Reference ranges:60 or greater: Ponqeg27-44 ( for 3 consecutive months): Chronic kidney disease 15 or less: Kidney failureMid[facility] – CentralGlucose Oznxa0346-63-23 05:59:00* Test Item Value Reference Range Interpretation Comments Glucose Level (test code = SXH2970) 122 74-118 H [facility] CentralCalcium Lwtgd6663-80-18 05:59:00* Test Item Value Reference Range Interpretation Comments Calcium Level (test code = 97952-6) 7.6 8.4-10.2 L [facility] CentralTotal Pzjzpmdhu6733-04-31 05:59:00* Test Item Value Reference Range Interpretation Comments Total Bilirubin (test code = 1975-2) 0.3 0.2-1.2 [facility] CentralAspartate Amino Transf (AST/SGOT) 2019-05-15 05:59:00* Test Item Value Reference Range Interpretation Comments Aspartate Amino Transf (AST/SGOT) (test code = Aspartate Amino Transf (AST/SGOT)) 15 5-34 [facility] CentralAlanine Aminotransferase (ALT/SGPT) 2019-05-15 05:59:00* Test Item Value Reference Range Interpretation Comments Alanine Aminotransferase (ALT/SGPT) (test code = 1742-6) 6 0-55 [facility] CentralTotal Mjzdort5138-62-03 05:59:00* Test Item Value Reference Range Interpretation Comments Total Protein (test code = 2885-2) 4.8 6.5-8.1 L [facility] CentralAlbumin2019-08-16 05:59:00* Test Item Value Reference Range Interpretation Comments Albumin (test code = 1751-7) 2.1 3.5-5.0 L [facility] CentralGlobulin2019-08-16 05:59:00* Test Item Value Reference Range Interpretation Comments Globulin (test code = 16636-7) 2.7 2.3-3.5 [facility] CentralAlbumin/Globulin Dlebf5023-30-09 05:59:00 * Test Item Value Reference Range Interpretation Comments Albumin/Globulin Ratio (test code = 1759-0) 0.8 0.8-2.0 [facility] CentralAlkaline Cojygolxibk5772-19-04 05:59:00* Test Item Value Reference Range Interpretation Comments Alkaline Phosphatase (test code = 6768-6) 56 40-150 [facility] CentralWhite Blood Vnfvn2131-00-13 05:58:00* Test Item Value Reference Range Interpretation Comments White Blood Count (test code = 6690-2) 7.18 4.8-10.8 [facility] CentralRed Blood Xkwra9830-29-51 05:58:00* Test Item Value Reference Range Interpretation Comments Red Blood Count (test code = 789-8) 3.55 4.3-5.7 L [facility] CentralHemoglobin2019-08-16 05:58:00* Test Item Value Reference Range Interpretation Comments Hemoglobin (test code = 49039-4) 10.7 14.0-18.0 L [facility] CentralHematocrit2019-08-16 05:58:00* Test Item Value Reference Range Interpretation Comments Hematocrit (test code = 4544-3) 32.4 38.2-49.6 L [facility] CentralMean Corpuscular Pvatsn7156-45-49 05:58:00* Test Item Value Reference Range Interpretation Comments Mean Corpuscular Volume (test code = 787-2) 91.3 81-99 [facility] CentralMean Corpuscular Bqqsbxodgx4156-92-22 05:58:00* Test Item Value Reference Range Interpretation Comments Mean Corpuscular Hemoglobin (test code = 785-6) 30.1 28-32 [facility] CentralMean Corpuscular Hemoglobin Concent 2019-05-15 05:58:00* Test Item Value Reference Range Interpretation Comments Mean Corpuscular Hemoglobin Concent (test code = 786-4) 33.0 31-35 [facility] CentralRed Cell Distribution Jiaan1319-87-63 05:58:00* Test Item Value Reference Range Interpretation Comments Red Cell Distribution Width (test code = 17398-1) 13.7 11.7 -14.4 [facility] CentralPlatelet Ipwyg6496-59-31 05:58:00* Test Item Value Reference Range Interpretation Comments Platelet Count (test code = 777-3) 134 140-360 L [facility] CentralNeutrophils (%) (Auto)2019-05-15 05:58:00 * Test Item Value Reference Range Interpretation Comments Neutrophils (%) (Auto) (test code = 99317-0) 68.2 38.7-80.0 [facility] CentralLymphocytes (%) (Auto)2019-05-15 05:58:00 * Test Item Value Reference Range Interpretation Comments Lymphocytes (%) (Auto) (test code = 736-9) 19.8 18.0-39.1 [facility] CentralMonocytes (%) (Auto)2019-05-15 05:58:00* Test Item Value Reference Range Interpretation Comments Monocytes (%) (Auto) (test code = 5905-5) 9.9 4.4-11.3 [facility] CentralEosinophils (%) (Auto)2019-05-15 05:58:00 * Test Item Value Reference Range Interpretation Comments Eosinophils (%) (Auto) (test code = 713-8) 1.3 0.0-6.0 [facility] CentralBasophils (%) (Auto)2019-05-15 05:58:00* Test Item Value Reference Range Interpretation Comments Basophils (%) (Auto) (test code = 706-2) 0.4 0.0-1.0 [facility] CentralIM GRANULOCYTES %2019-05-15 05:58:00* Test Item Value Reference Range Interpretation Comments IM GRANULOCYTES % (test code = IM GRANULOCYTES %) 0.4 0.0- 1.0 [facility] CentralNeutrophils # (Auto)2019-05-15 05:58:00* Test Item Value Reference Range Interpretation Comments Neutrophils # (Auto) (test code = 751-8) 4.9 2.1-6.9 [facility] CentralLymphocytes # (Auto)2019-05-15 05:58:00* Test Item Value Reference Range Interpretation Comments Lymphocytes # (Auto) (test code = 29406-3) 1.4 1.0-3.2 [facility] CentralMonocytes # (Auto)2019-05-15 05:58:00* Test Item Value Reference Range Interpretation Comments Monocytes # (Auto) (test code = 742-7) 0.7 0.2-0.8 [facility] CentralEosinophils # (Auto)2019-05-15 05:58:00* Test Item Value Reference Range Interpretation Comments Eosinophils # (Auto) (test code = 711-2) 0.1 0.0-0.4 [facility] CentralBasophils # (Auto)2019-05-15 05:58:00* Test Item Value Reference Range Interpretation Comments Basophils # (Auto) (test code = 704-7) 0.0 0.0-0.1 [facility] CentralAbsolute Immature Granulocyte (auto 2019-05-15 05:58:00* Test Item Value Reference Range Interpretation Comments Absolute Immature Granulocyte (auto (faye t code = Absolute Immature Granulocyte (auto) 0.03 0-0.1 [facility] CentralBlood Shynfxu4542-51-16 23:56:00* Test Item Value Reference Range Interpretation Comments Blood Culture (test code = 58374729) NO GROWTH AFTER 24 HOURS [facility] CentralHIPS BILAT TWO VWS(+/- PELVIS)2019-05-14 17:32:00 [place] [address] Patient Name: NOEMY ARGUETA MR #: [id number] : 1935 Age/Sex: 83/M Req #: [id number] Adm Physician: HAZEL SHAW MD Ordered by: HAZEL SHAW MD Report #: [id number] Location: MED/SURG2 Room/Bed: [facility] Procedure: 8941-9587 D X/HIPS BILAT TWO VWS(+/- PELVIS) Exam [...] COPY TO: HAZEL SHAW MD Creatine Kinase TX7577-32-41 09:00:00* Test Item Value Reference Range Interpretation Comments Creatine Kinase MB (test code = 07016-2) 5.60 0-5.0 H [facility] CentralTroponin D2028-80-33 09:00:00* Test Item Value Reference Range Interpretation Comments Troponin I (test code = ECK3316) 0.015 0-0.300 [facility] CentralCreatine Rgnefd8670-52-12 08:35:00* Test Item Value Reference Range Interpretation Comments Creatine Kinase (test code = 2157-6) 257 30-200 H [facility] CentralUrine TUF7109-88-07 03:56:00* Test Item Value Reference Range Interpretation Comments Urine WBC (test code = 5821-4) 0-5 0-5 [facility] CentralUrine WJU9635-63-01 03:56:00* Test Item Value Reference Range Interpretation Comments Urine RBC (test code = 64858-9) 0-5 0-5 [facility] CentralUrine Hgrgduie3672-58-12 03:56:00* Test Item Value Reference Range Interpretation Comments Urine Bacteria (test code = 62615-5) RARE NONE [facility] CentralUrine Epithelial Esazf3520-95-86 03:56:00 * Test Item Value Reference Range Interpretation Comments Urine Epithelial Cells (test code = 33073-9) FEW NONE [facility] CentralUrine Imjrp3363-38-92 03:50:00* Test Item Value Reference Range Interpretation Comments Urine Color (test code = 5778-6) YELLOW YELLOW [facility] CentralUrine Pmytzvw0450-81-36 03:50:00* Test Item Value Reference Range Interpretation Comments Urine Clarity (test code = 52011-3) CLEAR CLEAR [facility] CentralUrine Specific Vjvwkyb6838-20-17 03:50:00 * Test Item Value Reference Range Interpretation Comments Urine Specific [place] (test code = 5811-5) <=1.005 1.010-1.02 5 [facility] CentralUrine cB9741-54-50 03:50:00* Test Item Value Reference Range Interpretation Comments Urine pH (test code = 54032-8) 6 5-7 [facility] Central[facility] Leukocyte Yfraxxiv2132-25-38 03:50:00* Test Item Value Reference Range Interpretation Comments Urine Leukocyte Esterase (test code = 50471-5) NEGATIVE NEGATIV E [facility] CentralUrine Qyueade3852-16-19 03:50:00* Test Item Value Reference Range Interpretation Comments Urine Nitrite (test code = 25974-3) NEGATIVE NEGATIVE [facility] CentralUrine Moredjr6725-46-33 03:50:00* Test Item Value Reference Range Interpretation Comments Urine Protein (test code = 40583-5) NEGATIVE NEGATIVE [facility] Central[facility] Glucose (UA)2019-05-14 03:50:00* Test Item Value Reference Range Interpretation Comments Urine Glucose (UA) (test code = 72594-4) NEGATIVE NEGATIVE [facility] CentralU[facility] Haeyrpi4202-09-37 03:50:00* Test Item Value Reference Range Interpretation Comments Urine Ketones (test code = 65456-9) NEGATIVE NEGATIVE [facility] Central[facility] Ayjtkfaoonvt9892-16-46 03:50:00* Test Item Value Reference Range Interpretation Comments Urine Urobilinogen (test code = 89208-3) 0.2 0.2-1 [facility] CentralU[facility] Nvizhouuf4713-65-21 03:50:00* Test Item Value Reference Range Interpretation Comments Urine Bilirubin (test code = 1977-8) NEGATIVE NEGATIVE [facility] Central[facility] Rzplx8595-32-86 03:50:00* Test Item Value Reference Range Interpretation Comments Urine Blood (test code = 54183-8) NEGATIVE NEGATIVE [facility] Central[facility] Opiates Yxplub0505-24-39 03:49:00* Test Item Value Reference Range Interpretation Comments Urine Opiates Screen (test code = 44735-8) POSITIVE NEGATIVE H ALL TESTS PERFORMED MANUALLY ON Bex TOX/SEE TEST This test provides only a sc reen. Positive results should be repeated by a confirmatory test.[facility] Barbiturates Payvbd0376-99-16 03:49:00* Test Item Value Reference Range Interpretation Comments Urine Barbiturates Screen (test code = 050081742) NEGATIVE NEGA TIVE [facility] Central[facility] Phencyclidine Fvfpjb2222-47-26 03:49:00* Test Item Value Reference Range Interpretation Comments Urine Phencyclidine Screen (test code = 07931-2) NEGATIVE NEGAT VALENTINE [facility] Amphetamines Fyjysr8817-61-73 03:49:00* Test Item Value Reference Range Interpretation Comments Urine Amphetamines Screen (test code = 48602-6) NEGATIVE NEGATI VE [facility] Methamphetamines Iqersy4378-61-95 03:49:00* Test Item Value Reference Range Interpretation Comments Urine Methamphetamines Screen (test code = Urine Metha mphetamines Screen) NEGATIVE NEGATIVE [facility] Benzodiazepines Ualgjx0179-43-90 03:49:00* Test Item Value Reference Range Interpretation Comments Urine Benzodiazepines Screen (test code = 34033-7) POSITIVE NEG ATIVE H This test provides only a screen. Positive results should be repeated by a confi rmatory test.[facility] Cocaine Screen 2019-05-14 03:49:00* Test Item Value Reference Range Interpretation Comments Urine Cocaine Screen (test code = 3398-5) NEGATIVE NEGATIVE [facility] Cannabinoids Swqtxk7905-50-54 03:49:00* Test Item Value Reference Range Interpretation Comments Urine Cannabinoids Screen (test code = 50735-2) NEGATIVE NEGATI VE THESE RESULTS ARE FOR MEDICAL TREATMENT ONLYTHIS REPORT CONTAINS UNCONFIR MED SCREENING RESULTS*POSITIVE RESULTS WILL BE CONFIRMED BY REFERENCE LAB UPON R EQUEST CUT-OFFDRUG CLASS CONCENTRATION ng/mLAmphetamines 1000Methamphetamines 1000Cocaine 300Opiate 300Phencyc lidine 25Cannabinoid 50Barbiturates 300Benzodiazepine 300Methadone 300[facility] Methadone Euflae7886-85-39 03:49:00* Test Item Value Reference Range Interpretation Comments Urine Methadone Screen (test code = 69267-7) NEGATIVE NEGATIVE THESE RESULTS ARE FOR MEDICAL TREATMENT ONLYTHIS REPORT CONTAINS UNCONFIR MED SCREENING RESULTS*POSITIVE RESULTS WILL BE CONFIRMED BY REFERENCE LAB UPON R EQUEST CUT-OFFDRUG CLASS CONCENTRATION ng/mLAmphetamines 1000Methamphetamines 1000Cocaine Metabolite 300Opiate 300Phencyc lidine 25Cannabinoid 50Barbiturates 300Benzodiazepine 300Methadone 300[facility] CampusCT CERVICAL SPINE AX5953-18-25 00:55:00 [place] [address] Patient Name: NOEMY ARGUETA MR #: [id number] : 1935 Age/Sex: 83/M Req #: [id number] Adm Physician: Ordered by: CINDY BURROWS MD Report #: [id number] Location: ER Room/Bed: Procedure: 43 CT/CT CERVICAL SPINE WO Exam Date: 05/13/19 Exam Time: 3514 REPORT STATUS: Signed History: Fall. Comparison studies: [...] foraminal stenosis. . IMPRESSION: 1. No ac [place] cervical spine fracture or dislocation. Reversal of [...] BURROWS MD CHEST SINGLE (PORTABLE) 2019-05-14 00:53:00 [place] [address] Patient Name: NOEMY ARGUETA MR #: [id number] : 1935 Age/Sex: 83/M Req #: [id number] Adm Physician: Ordered by: CINDY BURROWS MD Report #: [id number] Location: ER Room/Bed: Procedure: 60 DX/CHEST SINGLE [...] COPY TO: CINDY BURROWS MD CT BRAIN JN5565-67-25 00:47:00 [place] [address] Patient Name: NOEMY ARGUETA MR #: [id number] : 1935 Age/Sex: 83/M Req #: [id number] Adm Physician: Ordered by: CINDY BURROWS MD Report #: [id number] Location: ER Room/Bed: Procedure: 42 CT/CT BRAIN [...] COPY TO: CINDY BURROWS MD Lactic Acid Rkatt1457-02-36 00:36:00* Test Item Value Reference Range Interpretation Comments Lactic Acid Level (test code = Lactic Acid Level) 18.7 4.5- 19.8 [facility] 2 KOSQS7722-38-62 17:12:00 [facility] [address] [place] [address] Patient Name: NOEMY ARGUETA MR #: [id number] : 1935 Age/Sex: 83/M Req #: [id number] Adm Physician: Ordered by: ELMIRA HUGHES MD Report #: [id number] Location: OR Room/Bed: Procedure: 3975-4537 DX/CH EST 2 VIEWS Exam Date: 03/11/19 [...] on 03/11/191718 COPY TO: ELMIRA HUGHES MD MHDBEA1774-77-10 17:11:00* Test Item Value Reference Range Interpretation Comments GLUBED (test code = GLUBED) 98 mg/dL 74-106 N [facility] CJCZPD3408-58-64 12:12:00* Test Item Value Reference Range Interpretation Comments GLUBED (test code = GLUBED) 163 mg/dL 74-106 H Performed by certified flattening press operator [facility] DUIWSR8760-36-94 08:00:00* Test Item Value Reference Range Interpretation Comments GLUBED (test code = GLUBED) 90 mg/dL 74-106 N Performed by certified flattening press operator [facility] BASIC METABOLIC MLQXP9370-45-38 05:35:00* Test Item Value Reference Range Interpretation [...] CK) 2348 IUnit/L 26-208 H BASIC METABOLIC ZOLYD0546-80-55 05:16:00* Test Item Value Reference Range Interpretation [...] (CK) (test code = CK) IUnit/L 26-208 DBUBHO2735-76-78 20:59:00* Test Item Value Reference Range Interpretation Comments GLUBED (test code = GLUBED) 125 mg/dL 74-106 H Performed by certified flattening press operator [facility] ECKVEX1157-15-42 16:45:00* Test Item Value Reference Range Interpretation Comments GLUBED (test code = GLUBED) 107 mg/dL 74-106 H Performed by certified flattening press operator [facility] URINALYSIS BHCXKFXA5322-09-86 13:53:00* Test Item Value Reference Range Interpretation [...] FEW #/HPF NONE Urine Source? Clean CatchURINALYSIS FSYPZLWN2208-82-13 13:49:00* Test Item Value Reference Range Interpretation [...] BACU) per HPF NONE Urine Source? Clean RdapbUTQAYV3992-03-50 12:47:00* Test Item Value Reference Range Interpretation Comments GLUBED (test code = GLUBED) 114 mg/dL 74-106 H Performed by certified flattening press operator [facility] QSTFSO7356-70-79 08:17:00* Test Item Value Reference Range Interpretation Comments GLUBED (test code = GLUBED) 96 mg/dL 74-106 N Performed by certified flattening press operator [facility] BASIC METABOLIC DZTLV8469-25-67 08:12:00* Test Item Value Reference Range Interpretation [...] CK) 5208 IUnit/L 26-208 H BASIC METABOLIC VPDEL7833-98-29 07:39:00* Test Item Value Reference Range Interpretation [...] (CK) (test code = CK) IUnit/L 26-208 NCLFSL3603-67-90 21:50:00* Test Item Value Reference Range Interpretation Comments GLUBED (test code = GLUBED) 117 mg/dL 74-106 H Performed by certified flattening press operator at [facility] - CT L-SPINE W/O XIYFZBOD0279-59-58 19:37:00 Name: NOEMY ARGUETA [facility] : 1935 Age/S: 83 / M [address] [facility]: [id number] Loc: [place] [address] Phys: Shannon Corey MD Acct: [id number] Dis Date: Status: ADM IN PHONE #: [phone] Exam Date: 01/21/2019 191 FAX #: [phone] Reason: H/o fall EXAMS: CPT CODE: [id number] CT L-SPINE W/O CONTRAST 34410 REASON FOR EXAM: H/o fall EXAM ORDER [...] : 1935 Age/S: 83 / M [address] [facility] Unit #: [id number] Loc: [place] [address] Phys: Shannon Corey MD Acct: [id number] Dis Date: Status: ADM IN PHONE #: [phone] Exam Date: 01/21/20191918 FAX #: [phone] Reason: H/o fall EXAMS: CPT CODE: [id number] CT T-SPINE W/O CONTRAST 81465 REASON FOR EXAM: H/o fall EXAM ORDER [...] 1935 Age/S: 83 / M [address] [facility] Unit #: [id number] Loc: [place] [address] Phys: Shannon Corey MD Acct: [id number] Dis Date: Status: ADM IN PHONE #: [phone] Exam Date: 01/21/20191918 FAX #: [phone] Reason: H/o fall EXAMS: CPT CODE: [id number] CT C-SPINE W/O CONTRAST 15409 REASON FOR EXAM: H/o fall EXAM ORDER [...] (1936) CTDI: DLP: PAGE 1 Signed Report [id number] 15:53:00* Test Item Value Reference Range Interpretation Comments GLUBED (test code = GLUBED) 120 mg/dL 74-106 H Performed by certified flattening press operator at [facility] - XR RIBS UNI W/CXR 3+V YO6527-19-52 12:17:00 FAX: Obey De Souza MD [phone] [place]: St: [facility] FAX: David Goldstein MD [phone] Name: NOEMY ARGUETA [facility] : 1935 Age/S: 83/M [address] [facility] Unit #: [id number] Loc: [address] [place] [address] Phys: Obey De Souza MD Acct: [id number] Dis Date: Status: ADM IN PHONE #: [phone] Exam Date: 01/20/20192254 FAX #: [phone] Reason: rib pain, fall EXAMS: CPT CODE: [id number] XR RIBS UNI W/CXR 3+[place] [address] HISTORY: Pain after fall. COMPARISON: Chest x-ray [...] By: [email or web address] Orig Print D/T: S: 01/22/2019 (1145) PAGE 1 Signed Report [id number] 12:13:00* Test Item Value Reference Range Interpretation Comments GLUBED (test code = GLUBED) 114 mg/dL 74-106 H Performed by certified flattening press operator at [facility] - CT HEAD/BRAIN W/O WNIY3515-72-92 12:02:00 Name: NOEMY ARGUETA [facility] : 1935 Age/S: 83 / M [address] [facility] Unit #: [id number] Loc: [place] [address] Phys: Obey De Souza MD Acct: [id number] Dis Date: Status: ADM IN PHONE #: [phone] Exam Date: 01/20/2019 2300 FAX #: [phone] Reason: fall/AMS EXAMS: CPT CODE: [id number] CT HEAD/BRAIN W/O CONT 74462 HISTORY: Confusion. COMPARISON: None available. CT brain [...] (1202) [email or web address] Orig Print D/T: S: 01/21/2019 (1156) CTDI: DLP: PAGE 1 Signed Report [id number] 07:52:00* Test Item Value Reference Range Interpretation Comments GLUBED (test code = GLUBED) 100 mg/dL 74-106 N Performed by certified flattening press operator at [facility] BASIC METABOLIC JKPLW9229-98-67 23:39:00* Test Item Value Reference Range Interpretation [...] CK) 7841 IUnit/L 26-208 H BASIC METABOLIC TQGUF1139-08-11 23:09:00* Test Item Value Reference Range Interpretation [...] code = CK) IUnit/L 26-208 BASIC METABOLIC QIZNS8955-81-83 23:02:00* Test Item Value Reference Range Interpretation [...] code = CK) IUnit/L 26-208 CBC W/AUTO UJRZ5663-73-51 22:47:00* Test Item Value Reference Range Interpretation [...] (test code = MDIFF) NO CBC W/AUTO OHKX6961-08-75 22:39:00* Test Item Value Reference Range Interpretation [...] BA#) K/mm3 0.0-0.2 XR RIBS UNILATERAL/ PA YUIZU4302-04-62 14:04:37Procedures: XR RIBS UNILATERAL/ PA CHESTExam Date: [...] By: AG WATSONDate: 02/23/2018 14:04MRI BRAIN WO [place] [address] Patient Name: NOEMY ARGUETA MR #: [id number] : 1935 Age/Sex: 82/M Req #: [id number] Adm Physician: KLAUDIA ARZOLA MD Ordered by: CARISSA ROSAS MD Report #: [id number] Location: [facility] Room/Bed: [place] [address] Procedure: [id number] MRI /MRI BRAIN WO Exam Date: 06/28/17 [...] TO: CARISSA ROSAS MD CHEST SINGLE (PORTABLE) [place] [address] Patient Name: NOEMY ARGUETA MR #: [id number] : 1935 Age/Sex: 82/M Req #: [id number] Adm Physician: Ordered by: ABEL DE LEÓN Report #: [id number] Location: ER Room/Bed: Procedure: 7127-2557 DX/CHEST SINGLE (PORTABLE) Ex am Date: 06/28/17 [...] TO: ABEL DE LEÓN CT BRAIN WO [place] [address] Patient Name: NOEMY ARGUETA MR #: [id number] : 1935 Age/Sex: 82/M Req #: [id number] Adm Physician: Ordered by: ABLE DE LEÓN Report #: [id number] Location: ER Room/Bed: Procedure: [id number] CT/CT BRAIN WO Exam Date: Exam Time: [...] TO: SALTY DE LEÓN CT BRAIN WO [place] [address] Patient Name: NOEMY ARGUETA MR #: [id number] : 1935 Age/Sex: 82/M Req #: [id number] Adm Physician: Ordered by: MELANIE PRAKASH MD Report #: [id number] Location: ER Room/Bed: Procedure: [id number] CT/CT BRAIN WO Exam Date: Exam Time: [...]
[2020-08-07] MEDS ORDERED: SODIUM CHLORIDE 0.9% 1000ML 1,000 ML IV ONE (18:45)
[2020-08-07] MEDS ORDERED: ONDANSETRON HCL INJ 2MG/ML 2ML 2 MG/ML VIAL IV PRN (18:45)
--- NOTE | 2020-08-07 21:15 | NUR ---
RECEIVED REPORT FROM NIKKI, ER NURSE. CALL LIGHT WITHIN REACH. PATIENT ARRIVED VIA STRETCHER TO THE UNIT WITH BELONGINGS. PATIENT REQUESTING A THROAT LOZENGE.
[2020-08-07 21:17] VITALS: BP 135/73
[2020-08-07 21:25] VITALS: BP 135/73
[2020-08-07] MEDS ORDERED: TRAMADOL HCL 50 MG TAB PO PRN (22:30)
[2020-08-07] MEDS ORDERED: DIPHENHYDRAMINE HCL 25 MG CAP PO ONE (22:30)
[2020-08-07] MEDS ORDERED: ATENOLOL 50 MG TAB PO ONE (22:30)
[2020-08-07] MEDS ORDERED: ROPINIROLE HCL 1 MG TAB PO PRN (22:30)
[2020-08-07] MEDS ORDERED: GABAPENTIN 100 MG CAP PO ONE (22:30)
[2020-08-07] MEDS ORDERED: ROPINIROLE HCL 1 MG TAB PO ONE (23:00)
[2020-08-07] MEDS: METOCLOPRAMIDE HCL 10 MG/2ML VIAL IV SCH (23:02)
[2020-08-07 23:48] VITALS: BP 128/69
[2020-08-08] MEDS ORDERED: ROPINIROLE HCL 1 MG TAB PO PRN (01:30)
[2020-08-08] MEDS ORDERED: TRAMADOL HCL 50 MG TAB PO PRN (01:30)
[2020-08-08 05:02] VITALS: BP 98/55
[2020-08-08] MEDS: METOCLOPRAMIDE HCL 10 MG/2ML VIAL IV SCH (05:10)
[2020-08-08 06:05] LABS: ALANINE AMINOTRANSFERASE 9 IU/L (0-55); ALBUMIN 2.8 g/dL (3.5-5.0); ALBUMIN/GLOBULIN RATIO 1.1 (0.8-2.0); ALKALINE PHOSPHATASE 62 IU/L (40-150); BLOOD UREA NITROGEN 9 mg/dL (7-26); BUN/CREATININE RATIO 9 (6-25); CALCIUM 8.3 mg/dL (8.4-10.2); CARBON DIOXIDE 23 mmol/L (22-29); CHLORIDE 108 mmol/L (98-107); CREATININE, SERUM 1.05 mg/dL (0.72-1.25); EST GLOMERULAR FILTRATION RATE > 60 ML/MIN (60-); GLUCOSE 82 mg/dL (74-118); SODIUM 139 mmol/L (136-145)
[2020-08-08 06:37] LABS: BASOPHILS % 0.5 % (0.0-1.0); EOSINOPHILS # (AUTO) 0.1 (0.0-0.4); EOSINOPHILS % 1.9 % (0.0-6.0); HEMATOCRIT 37.1 % (38.2-49.6); HEMOGLOBIN 12.4 g/dL (14.0-18.0); LYMPHOCYTES # (AUTO) 1.8 (1.0-3.2); LYMPHOCYTES % 24.3 % (18.0-39.1); MEAN CORPUSCULAR HEMOGLOBIN 29.7 pg (28-32); MEAN CORPUSCULAR HGB CONC 33.4 g/dL (31-35); MONOCYTES # (AUTO) 0.9 (0.2-0.8); MONOCYTES % 11.6 % (4.4-11.3); NEUTROPHILS # (AUTO) 4.5 (2.1-6.9); NEUTROPHILS % 61.2 % (38.7-80.0); PLATELET COUNT 165 x10e3/uL (140-360); RED BLOOD COUNT 4.17 x10e6/uL (4.3-5.7); RED CELL DISTRIBUTION WIDTH 12.7 % (11.7-14.4)
--- NOTE | 2020-08-08 07:24 | NUR ---
GAVE BEDSIDE SHIFT REPORT TO ONCOMING NURSE. CALL LIGHT WITHIN REACH. PATIENT IN BED. HOURLY ROUNDING PERFORMED.
[2020-08-08 07:35] VITALS: BP 98/55
[2020-08-08 08:34] VITALS: BP 121/67
[2020-08-08] MEDS ORDERED: CHLORDIAZEPOXIDE HCL 10 MG CAP PO SCH (09:00)
[2020-08-08] MEDS ORDERED: PNEUMOCOCCAL VACCINE POLYVALENT 23 MCG/0.5 ML VIAL IM SCH (09:00)
[2020-08-08] MEDS ORDERED: PANTOPRAZOLE 40 MG 10ML VIAL IV SCH (09:00)
[2020-08-08] MEDS ORDERED: DOCUSATE SODIUM 100 MG CAP PO SCH (09:00)
[2020-08-08] MEDS ORDERED: ATENOLOL 50 MG TAB PO SCH (09:00)
[2020-08-08] MEDS ORDERED: GABAPENTIN 100 MG CAP PO SCH (09:00)
[2020-08-08] MEDS ORDERED: PROTONIX20 MG PO (10:14)
[2020-08-08] MEDS ORDERED: DOMPERIDONE PO ×2 (10:16)
--- NOTE | 2020-08-08 12:04 | NUR ---
History&Physical Chief Complaint - Nausea History of Present Illness Mr Polanco is a 85 yo M with PMH of Afib, GERD, PUD, esophageal stricture s/p dilation, restless leg syndrome, and chronic refractory nausea who was admitted for nausea. Patient has frequent admissions for intractable nausea and is taking Zofran chronically at home which he states doesn't work at times. He called Dr Hector Valentine yesterday regarding his nausea, stating it had gotten much worse and couldn't tolerate it, told to present to [facility] ED for IV Reglan. During each of his admissions for nausea, he is treated with IV reglan with quick relief, but cannot be discharged on PO Reglan due to his age and comorbidities. In ED, vitals were stable. Labs unremarkable. Started on IV Reglan. Home Medications - see medication reconciliation Review of Systems General: No fever, chills, or fatigue HEENT: Denies visual changes, hearing loss, congestion, rhinorrhea, or bleeding Respiratory: No SOB, cough, or hemoptysis Cardiovascular: No chest pain, palpitations, BARROW, orthopnea, PND, leg edema, or claudication Gastrointestinal: + nausea, No vomiting, diarrhea, constipation, or abdominal pain G/U: Denies dysuria, hematuria, incontinence, or discharge Musculoskeletal: No myalgias or arthralgias Neurological: No syncope, seizures, headaches, changes in sensation, or weakness Hematology: No bruising, bleeding, or lymphadenopathy Endocrine: No heat or cold intolerance, hair loss, or weight changes Skin: No rashes, sores, itching, bruising Psychiatric: Denies depression or elevated mood, or anxiety Past Medical History Afib, GERD, PUD, esophageal stricture s/p dilation, restless leg syndrome, and chronic refractory nausea Past Surgical History Cholecystectomy, hernia repair, knee repair Family History No family history of heart disease Social History Denies smoking, drinking, or drug use Allergies Allergic to latex Physical Exam Vitals: Temp: 98.0P: 62BP:121/67 RR: 16SpO2: 99% General Appearance: The patient is alert, oriented and in no acute distress. Appears euvolemic. Skin: Warm and hydrated without any rash. HEENT: Head is normocephalic, atraumatic. Nontender sinuses. Pupils are equal and reactive. The nares are patent. Oropharynx is moist and clear without lesions. Neck: Supple without lymphadenopathy. No JVD. Thyroid NV/[employer] Heart / Cardiovascular: Regular rate and rhythm. Normal S1 and S2 without S3/S4. No murmurs, rubs or gallops. Peripheral pulses symmetric +2. Respiratory / Chest: No crackles or wheezes are heard. Symmetric breath sounds. Preserved chest expansion. Abdomen: Soft, nontender, nondistended with good bowel sounds heard. No clinical organomegaly. Renal: There is no costovertebral angle tenderness. Extremities: Without cyanosis, clubbing or edema. Preserved ROM. Neurological: Gross nonfocal. Patient oriented x 3. Cranial nerves II - XII Grossly intact. DTRs +2. MS: 5 globally. Assessment/Plan #Intractable nausea, improved - continue IV reglan, however per Hector Valentine will not discharge him on PO reglan as it is too high risk for his age and his heart - see if able to tolerate PO diet prior to discharge #Afib - continue home atenolol - not on blood thinner at baseline #PUD #GERD - continue protonix 40mg BID per Dr Hector Valentine I have spent 70 minutes [id number] time with patient, reviewing clinical data, and formulating plan of treatment. Andrew Valentine MD Internal Medicine
--- NOTE | 2020-08-08 12:10 | NUR ---
Discharge Summary Patient: Jarret Polanco Admission date: 08/08/2020 Discharge date: 08/08/2020 Attending physician: Andrew Valentine MD Consultation: Dr Donny Valentine, GI Admitting Diagnosis: Intractable chronic nausea, Afib, GERD, PUD, esophageal stricture s/p dilation, restless leg syndrome Discharge Diagnosis: Intractable chronic nausea, Afib, GERD, PUD, esophageal stricture s/p dilation, restless leg syndrome Procedures: None Hospital Course: Mr Polanco is a 85 yo M with PMH of Afib, GERD, PUD, esophageal stricture s/p dilation, restless leg syndrome, and chronic refractory nausea who was admitted for nausea. Patient has frequent admissions for intractable nausea and is taking Zofran chronically at home which he states doesn't work at times. He called Dr Hector Valentine yesterday regarding his nausea, stating it had gotten much worse and couldn't tolerate it, told to present to [facility] ED for IV Reglan. During each of his admissions for nausea, he is treated with IV reglan with quick relief, but cannot be discharged on PO Reglan due to his age and comorbidities. In ED, vitals were stable. Labs unremarkable. Started on IV Reglan. He did well on Reglan overnight and was able to tolerate his breakfast and was asking to go home this morning. I spoke to Dr Hector Valentine who agreed he can go home but cannot have PO Reglan due to comorbidities and age. Instead, the plan is to star t him on Dronabinol 10mg TID + Qhs and to follow up in his clinic tomorrow where they can assist him with a coupon to order the medication, as it has to be mailed in from a pharmacy in [place]. I also advised the patient to continue taking protonix and to make sure it is 40mg BID, as it is listed as daily on his medication reconciliation list, and he needs BID per recent EGD from Dr Hector Valentine. Patient is to also follow up with his PCP or me in clinic in 1 week. Of note, the EGD he had done recently showed esophageal stricture bellow upper esophageal sphincter s/p dilation, distal esophagitis, gastritis, and a 1cm nodu lar friable ulcer. Biopsies negative for malignancy and negative for Hpylori. Discharge medications: See medication reconciliation Discharge plan: Condition on discharge: good Activity: as tolerated Diet: discharge diet Follow-up: scheduled to see Dr Hector Valentine in clinic tomorrow, can follow up with me or his PCP in clinic in 1 week. Time spent on discharge: 45 minutes
== END 2020-08-08 11:03 | disposition home or self-care (01) ==
LOC: ER 16:57 → ERHOLD 18:39 → MED/SURG 21:06
DX: R11.0 Nausea (principal); I48.91 Unspecified atrial fibrillation; K21.9 Gastro-esophageal reflux disease without esophagitis; Z90.49 Acquired absence of other specified parts of digestive tract; K27.9 Peptic ulcer, site unspecified, unspecified as acute or chronic, without hemorrhage or perforation; G25.81 Restless legs syndrome; K22.2 Esophageal obstruction; Z20.828 Contact with and (suspected) exposure to other viral communicable diseases; Z91.040 Latex allergy status
CPT/HCPCS: 36415 ×2; 80053 ×2; 81001; 82550; 82553; 83690; 84484; 85025 ×2; 93005; 99284; C9113; G0378 ×2; J2765 ×2; J7030; U0002